=== PATIENT | female | born 1970 | race Caucasian/White ===

== ENCOUNTER → 2024-09-30 | Outpatient (CLI) | payer MEDICAID, SELFPAY ==
[2024-09-30 10:12] LABS: Hematocrit 38.4 % (37-47); Hemoglobin 13.2 g/dL (12.0-15.0); Mean Corp Hgb Conc 34.4 g/dL (32-36); Mean Corpuscular Volume 89.7 fL (81-99); Mean Platelet Vol. 9.4 fl (6.2-12.0); Platelet Count 433 K/mm3 (150-450); RBC Distribution Width CV 13.7 % (11.6-14.6); RBC Distribution Width SD 45.1 fl (35.1-43.9); Red Blood Count 4.28 M/mm3 (4.2-5.4); White Blood Count 9.7 K/mm3 (4.4-11.0)
[2024-09-30 11:01] LABS: AST(SGOT) 25 U/L (<=31); Alanine Aminotransfer ALT/SGPT 19 U/L (<=34); Albumin, Serum 4.2 g/dL (3.5-5.0); Alkaline Phosphatase 101 U/L (35-104); Anion Gap 13 (5-15); BUN 11 mg/dL (4-19); BUN/Creat Ratio 12.9 RATIO (10-20); Calcium,Total 8.9 mg/dL (7.6-11.0); Carbon Dioxide 24.6 mmol/L (21.0-32.0); Chloride 101 mmol/L (98-108); Cholesterol 232 mg/dL (<=200); Globulin 3.0 g/dL (2.2-4.2); Glucose 88 mg/dL (70-99); Low Density Lipoprotein Calc. 104 mg/dL; Potassium 4.0 mmol/L (3.3-5.1); Triglycerides 241 mg/dL; Very Low Density Lipoprotein 48 mg/dL (5-40); cholesterol:hdl ratio screen 2.89
== END | disposition home or self-care (01) ==
LOC: MTLAB 08:46
PROVIDERS: PCP Family Medicine; Referring Provider Psychiatry & Neurology Neurology; Visit Provider Psychiatry & Neurology Neurology
DX: Z86.73 Personal history of transient ischemic attack (TIA), and cerebral infarction without residual deficits (principal); E03.9 Hypothyroidism, unspecified
CPT/HCPCS: 36415; 80053; 80061; 84439; 84443; 85027

== ENCOUNTER → 2024-10-10 | Outpatient (CLI) | payer MEDICAID, SELFPAY ==
--- NOTE | 2024-10-10 10:07 | CDU_ITS ---
Reason For Study Reason For Study: Hx of stroke and syncope Rt. Velocities/BP Lt. Velocities/BP Prox CCA 55.1/16.3 cm/sec. Prox CCA 83.9/22.3 cm/sec. Mid CCA 71.1/23.0 cm/sec. Mid CCA 78.4/25.6 cm/sec. Dist CCA 65.5/23.0 cm/sec. Dist CCA 67.4/22.3 cm/sec. Prox ICA 44.7/17.3 cm/sec. Prox ICA 67.4/17.9 cm/sec. Mid ICA 61.7/27.7 cm/sec. Mid ICA 52.0/25.6 cm/sec. Dist ICA 58.9/23.0 cm/sec. Dist ICA 41.0/19.0 cm/sec. Rt. ICA/CCA = 0.9. Lt. ICA/CCA = 0.9. Prox ECA 78.7/19.2 cm/sec. Prox ECA 77.3/14.6 cm/sec. Rt. Vert. 41.9/18.2 cm/sec. Lt. Vert. 39.0/14.5 cm/sec. Right Extracranial There is intimal thickening but no significant atherosclerotic plaque noted in the right common carotid artery. There is homogeneous, smooth atherosclerotic plaque noted in the right internal carotid artery. There is intimal thickening but no significant atherosclerotic plaque noted in the right external carotid artery. Antegrade flow is noted in the right vertebral artery. Left Extracranial There is intimal thickening but no significant atherosclerotic plaque noted in the left common carotid artery. There is homogeneous, smooth atherosclerotic plaque noted in the left internal carotid artery. There is intimal thickening but no significant atherosclerotic plaque noted in the left external carotid artery. Antegrade flow is noted in the left vertebral artery. Procedure Carotid Duplex [id number]. This is a Carotid Duplex examination using B-mode, color flow and specral Doppler. Exam performed in department. VL/Carotid Duplex Ultrasound Interpretation Summary Mild (<50%) stenosis right extracranial internal carotid. Mild (<50%) stenosis left extracranial internal carotid. Patent and antegrade vertebrals bilaterally. Ordering Physician: Bartolo Harrington Referring Physician: Yokasta Mera MD Performed By: Alivia Lopez RVT
--- OUTSIDE RECORDS SUMMARY | 2024-10-10 21:18 | XMS RPT_ITS | CCD ---
Author Organization [facility] CliniSymt Care Team Providers Care Russian Teacher Name Role Phone Amirneni, Vamsee Hugo Unavailable [phone] Kelvin, Johnathon Unavailable DEE DEE WAGNER Unavailable Unavailable CENTA, NORMAN E Unavailable Unavailable CENTA, NORMAN E Unavailable Unavailable CENTA, NORMAN E Unavailable Unavailable CENTA, NORMAN E Unavailable Unavailable CENTA, NORMAN E Unavailable Unavailable Amirneni, Vamsee Primary Care Provider Amirneni, Vamsee Hugo Primary Care Provider Amirneni, Vamsee K. Admitting Unavailable Amirneni, Vamsee K. Attending Unavailable Amirneni, Vamsee K. Admitting Unavailable Amirneni, Vamsee K. Attending Unavailable Amirneni, Vamsee K. Admitting Unavailable Amirneni, Vamsee K. Attending Unavailable Amirneni, Vamsee K. Admitting Unavailable Amirneni, Vamsee K. Attending Unavailable Amirneni, Vamsee K. Admitting Unavailable Amirneni, Vamsee K. Attending Unavailable Amirneni, Vamsee K. Admitting Unavailable Amirneni, Vamsee K. Attending Unavailable Gem Friedman Primary Care Provider Alise Sprague Primary Care Provider Alise Sprague Primary Care Provider Alise Sprague Primary Care Provider Aury Mera Primary Care Provider Aury Mera MD Primary Care Provider Aury Mera MD Primary Care Provider Ede ROBLES, Aury Primary Care Provider [phone] Ede ROBLES, Aury Primary Care Provider Darcie ERVIN, Alise Haynes Primary Care Provider Unavai laberic EDE, AURY Primary Care Unavailable SYSTEM, PROVIDER NOT IN Referring Unavaila ble SYSTEM, PROVIDER NOT IN Attending Unavaila ble JENNIFER, AURY Primary Care Unavailable AURY RODRIGUEZ Consulting Unavailable MELANIE ROBLES~[phone], MELANIE Cullen Admitting Unavailable MELANIE ROBLES~[phone], MELANIE REAL E Attending Unavailable MELANIE ROBLES, ADDIE E Consulting Unava higinio NAVARRO MD, ADDIE Cullen Consulting Unava ilalisha Mera MD, Aury Primary Care Provider KARENA RENO Attending Unavailable EDE, AURY Primary Care Unavailable EDE, AURY Referring Unavailable EDE, AURY Primary Care Unavailable WILLIAM, SOPHIAELI WATTS Admitting Unavailable WILLIAM, SOPHIAELI WATTS Referring Unavailable MARTA NINA Attending Unavailabl e EDE, AURY Primary Care Unavailable EDE, AURY Referring Unavailable GHINDABOO Referring Unavailab le EDE, AURY Primary Care Unavailable GHINDABOO Attending Unavailab le GHINDABOO Referring Unavailab le EDE, AURY Primary Care Unavailable GHINDABOO Attending Unavailab le EDE, AURY Primary Care Unavailable EDE, AURY Primary Care Unavailable MAC PRESTON Attending Unavailable MAC PRESTON Referring Unavailable EDE, AURY Primary Care Unavailable EDE, AURY Attending Unavailable EDE, AURY Referring Unavailable EDE, AURY Primary Care Unavailable EDE, AURY Attending Unavailable EDE, AURY Referring Unavailable EDE, AURY Primary Care Unavailable WILLIAM, SOPHIA MAC Admitting Unavailable WILLIAM, SOPHIA WATTS Attending Unavailable WILLIAM, SOPHIA MAC Referring Unavailable DARSHANA PACE Attending Unavailable EDE, AURY Primary Care Unavailable EDE, AURY Primary Care Unavailable GHINDABOO Admitting Unavailab le GHINDABOO Attending Unavailab le EDE, AURY Primary Care Unavailable EDE, AURY Primary Care Unavailable EDE, AURY Attending Unavailable EDE, AURY Primary Care Unavailable BOO SWANN Attending Unavailab le EDE, AURY Primary Care Unavailable YARY GUDINO Attending Unavailable EDE, AURY Primary Care Unavailable EDE, AURY Attending Unavailable EDE, AURY Referring Unavailable EDE, AURY Admitting Unavailable MAC PRESTON Attending Unavailable EDE, AURY Primary Care Unavailable EDE, AURY Primary Care Unavailable EDE, AURY Attending Unavailable ROMY BILLY Attending Unavaila ble EDE, AURY Primary Care Unavailable EDE, AURY Primary Care Unavailable ROMY BILLY Admitting Unavaila ROMY Brown Referring Unavaila cristi Harrington MD, Dr. Mcfarland Attending Provider Ede ROBLES, Aury Primary Care Provider Dr. Bartolo Harrington MD Referring Provider [phone] Bartolo Harrington Attending Unavailable Bartolo Harrington Referring Unavailable Bartolo Harrington Attending Unavailable Ede, Aury Primary Care Unavailable Bartolo Harrington Attending Unavailable Bartolo Harrington Referring Unavailable Allergies Allergy Classification Reported Allergen(s) Allergy Type Date of Onset Reaction(s) Facility Acetaminophen / oxyCODONE (4 sources) Acetaminophen / oxyCODONE Drug Allergy 04-20-19 18 [facility] Aspirin (4 sources) Aspirin Drug Allergy 05-04-19 16 GI Intolerance [facility] Caffeine (4 sources) Caffeine Drug Allergy 05-04-19 16 Other (See Comments) [facility] Contrast Media (4 sources) Contrast media Substance Allergy 09-24-19 19 [facility] Dihydrofolate Reductase Inhibitors (antibiotic) (4 sources) Trimethoprim Drug Allergy GI Intolerance [facility] Opioid Agonists (4 sources) Morphine Drug Allergy [facility] Penicillins (antibiotic) (4 sources) Penicillins Drug Allergy 05-04-19 16 [facility] Sulfonamides (antibiotic) (4 sources) Sulfamethoxazole Drug [facility] (20 sources) Ct: Iodinated Contrast- Oral And Iv Dye Propensity to adverse reactions to drug 07-23-19 18 [facility] (20 sources) aspirin; Translations: [ASPIRIN] Propensity to adverse reactions to drug 05-04-19 16 GI Intolerance, Unknown [facility] Work Phone: (20 sources) caffeine; Translations: [CAFFEINE] Propensity to adverse reactions to drug 05-04-19 16 Other (See Comments), Unknown [facility] Work Phone: (20 sources) morphine; Translations: [MORPHINE] Propensity to adverse reactions to drug 04-20-19 18 [facility] (20 sources) Penicillins; Translations: [PENICILLINS] Propensity to adverse reactions to drug 05-04-19 16 Hiv, Unknown [facility] Work Phone: (20 sources) sulfamethoxazole; Translations: [SULFAMETHOXAZOLE] Propensity to adverse reactions to drug 01-24-20 20 GI Intolerance [facility] (20 sources) trimethoprim; Translations: [TRIMETHOPRIM] Propensity to adverse reactions to drug GI Intolerance [facility] (20 sources) CT: IODINATED CONTRAST- ORAL AND IV DYE; Translations: [CT: IODINATED CONTRAST- ORAL AND IV DYE] Propensity to adverse reactions to drug 07-23-19 18 [facility] (20 sources) Acetaminophen / oxyCODONE; Translations: [OXYCODONE-ACETAMIN OPHEN] Drug Allergy 04-20-19 18 Itching [facility] (12 sources) Aluminum aspirin Drug Allergy 08-13-19 17 [facility] (12 sources) Diatrizoate Drug Allergy 08-13-19 17 [facility] (11 sources) Penicillins Propensity to adverse reactions to drug 08-13-19 17 [facility] (20 sources) Contrast media; Translations: [RED DYE] Propensity to adverse reactions to drug 09-24-19 19 [facility] (20 sources) Bee Venom Protein (Honey Bee); Translations: [BEE VENOM PROTEIN (HONEY BEE)] Propensity to adverse reactions to drug 10-13-19 19 [facility] (4 sources) Wound Dressing Adhesive Propensity to adverse reactions to drug 03-20-19 21 Rash, Blisters [facility] (11 sources) Penicillins Propensity to adverse reactions to drug 05-04-19 16 [facility] (20 sources) Penicillins Propensity to adverse reactions to drug 05-04-19 16 [facility] (20 sources) venlafaxine; Translations: [VENLAFAXINE] Drug Allergy 01-14-20 23 Other (See Comments), Agitation [facility] Work Phone: (1 source) Penicillins Propensity to adverse reactions to drug 08-13-19 17 [facility] (1 source) Sulfamethoxazole Propensity to adverse reactions to drug 01-24-20 [facility] (2 sources) Penicillin G Drug Allergy 09-30-19 25 [facility] (1 source) Penicillin Drug Allergy 09-30-19 [facility] (1 source) Iodinated Contrast Media Drug allergy (disorder) 09-30-19 [facility] Medications Current Medications Medication Drug Class(es) Dates Sig (Normalized) Sig (Original) acetaminophen 21.7 mg/ml / HYDROcodone bitartrate 0.5 mg/ml oral solution (11 sources) Opioid Agonist Start: 11-13-2020 End: 11-20-2020 HYDROcodone-acetamin ophen (HYCET) 7.5-325 mg/15 mL oral solution Indications: Postoperative pain Take 15 mL by mouth every 6 (six) hours as needed for pain (Days supply per fill: 7) . 420 mL 0 11/13/2020 11/20/2020 Discontinued (Patient's Request) Start: 02-07-2020 End: 02-10-2020 take 1 tablet by mouth every four hours as needed for pain HYDROcodone-Acetaminophen (Vicodin) 5-30 0 MG tablet Indications: S/P bilateral breast reduction Take 5 mg of opiate by mouth every 4 hours as needed for Moderate Pain for up to 3 days. 10 tablet 02/07/2020 Active Start: 06-06-2018 End: 06-06-2018 hydroCODone-acetaminophen (N ORCO) 5-325 MG per tablet 1 tablet Start: 06-06-2018 hydroCODone-ac etaminophen (NORCO) 5-325 MG per tablet 1 Each [id number] actuat albuterol 0.09 mg/actuat metered dose inhaler (5 sources) beta2-Adrenergic Agonist Start: 04-01-2024 End: 04-01-2025 take 2 puff(s) by inhalation every six hours as needed albuterol 90 mcg/actuation inhaler Indications: Upper respiratory tract infection, unspecified type Inhale 2 (two) puffs every 6 (six) hours as needed . 18 g 1 04/01/2024 04/01/2025 Active End: 07-22-2017 VENTOLIN HFA 90 mcg/actuatio n inhaler Inhale 2 puffs every 4 (four) hours as needed. 07/22/2017 Discontinued amLODIPine 10 mg oral tablet (20 sources) Dihydropyridine Calcium Channel Ronda Start: 06-29-2019 End: 02-15-2025 take 1 tablet by mouth once daily Amlodipine 10 mg tablet Active 10 mg PO daily September 29, 2024 12:00am Start: 11-16-2018 End: 11-16-2019 take 2 tablets by mouth once daily amLODIPine (NORVASC) 5 MG tablet Indications: Essential hypertension Take 2 (two) tablets (10 mg total) by mouth daily . 180 tablet 3 11/16/2018 11/16/2019 Active Start: 03-18-2018 End: 03-18-2019 take 1 tablet by mouth once daily amLODIPine (NORVASC) 10 MG tablet Take 1 (one) tablet (10 mg total) by mouth daily . 30 tablet 5 03/18/2018 03/18/2019 Active Start: 02-08-2018 End: 03-18-2018 take 1 tablet by mouth once daily amLODIPine (NORVASC) 5 MG tablet Take 1 (one) tablet (5 mg total) by mouth daily . 30 tablet 1 02/08/2018 03/18/2018 Discontinued amoxicillin 875 mg / clavulanate 125 mg oral tablet (3 sources) Penicillin-class Antibacterial Start: 04-08-2022 End: 04-18-2022 take 1 tablet by mouth twice daily amoxicillin-clavulanate (AUGMENTIN) 875-125 mg per tablet Indications: Acute maxillary sinusitis, recurrence not specified Take 1 (one) tablet by mouth 2 (two) times a day for 10 days . 20 tablet 0 04/08/2022 04/18/2022 Active Start: 10-02-2020 End: 10-12-2020 take 1 tablet by mouth twice daily amoxicillin-clavulanate (AUGMENTIN) 875-125 mg per tablet Indications: Recurrent acute serous otitis media of both ears Take 1 (one) tablet by mouth 2 (two) times a day for 10 days . 20 tablet 0 10/02/2020 10/12/2020 Active benzonatate 100 mg oral capsule (2 sources) Non-narcotic Antitussive Start: 01-23-2021 End: 01-30-2021 take 1 capsule by mouth three times daily as needed for cough benzonatate (TESSALON) 100 MG capsule Indications: COVID-19 , Cough Take 1 (one) capsule (100 mg total) by mouth 3 (three) times a day as needed for cough . 20 capsule 0 01/23/2021 01/30/2021 Active Biotin (20 sources) take 5000 ug by mouth once daily in the evening BIOTIN ORAL Take 5,000 mcg by mouth once daily PM . Active take 5000 ug by mout h once daily in the evening BIOTIN ORAL Take 5,000 mcg by mouth once daily PM . 0 Active take 5000 ug by mouth once daily BIOTIN ORAL Take 5,000 mcg by mouth once daily . 0 Active BIOTIN BEAUTY EXTRA STRENGTH PO (1 source) take 5000 ug by mouth once daily BIOTIN BEAUTY EXTRA STRENGTH PO Take 5,000 mcg by mouth daily. Active ciprofloxacin 3 mg/ml / dexamethasone 1 mg/ml otic suspension (1 source) Corticosteroid, Quinolone Antimicrobial Start: 04-21-19 End: 04-28-19 ciprofloxacin-dexamet hasone (CIPRODEX) otic suspension Indications: Otitis externa, unspecified chronicity, unspecified laterality, unspecified type , Right otitis media, unspecified otitis media type Administer 4 (four) drops to the right ear 2 (two) times a day for 7 days . 7.5 mL 0 04/21/2019 04/28/2019 Active Collagen (13 sources) COLLAGEN MISC 25 mL by Miscellaneous route daily . Active COLLAGEN MISC 25 mL by Miscellaneous route daily . 0 Active dicyclomine hydrochloride 10 mg oral capsule (20 sources) Anticholinergic Start: 06-26-2021 End: 11-23-2023 dicyclomine (BENTYL) 10 MG capsule Take 1 cap Twice a day as needed . 30 capsule 06/26/2021 11/23/2023 Discontinued dihydroergotamine mesylate 0.5 mg/actuat nasal spray (4 sources) Ergotamine Derivative dihydroergotamine (MIGRANAL) 0.5 mg/pump act. (4 mg/mL) nasal spray 1 spray into each nostril as needed for migraine Use in one nostril as directed. No more than 4 sprays in one hour . Active doxycycline hyclate 100 mg oral tablet (5 sources) Tetracycline-class Drug Start: 04-01-2024 take 1 tablet by mouth twice daily doxycycline hyclate (VIBRA-TABS) 100 MG tablet Indications: Upper respiratory tract infection, unspecified type , Non-recurrent acute suppurative otitis media of left ear without spontaneous rupture of tympanic membrane Take 1 (one) tablet (100 mg total) by mouth 2 (two) times a day . 20 tablet 04/01/2024 Active Start: 04-21-2019 End: 05-01-2019 take 1 tablet by mouth twice daily doxycycline hyclate (VIBRA-TABS) 100 MG tablet Indications: Otitis externa, unspecified chronicity, unspecified laterality, unspecified type , Right otitis media, unspecified otitis media type Take 1 (one) tablet (100 mg total) by mouth 2 (two) times a day for 10 days . 20 tablet 0 04/21/2019 05/01/2019 Active DULoxetine 60 mg delayed release oral capsule (11 sources) Serotonin and Norepinephrine Reuptake Inhibitor Start: 07-10-2021 End: 10-14-2021 take 1 capsule by mouth once daily DULoxetine (CYMBALTA) 60 MG capsule Take 60 mg by mouth daily . 0 07/10/2021 10/14/2021 Discontinued (Alternate therapy) Start: 07-13-2020 End: 01-23-2021 take 1 capsule by mouth once daily DULoxetine (CYMBALTA) 60 MG capsule Take 60 mg by mouth daily . 0 07/13/2020 01/23/2021 Discontinued (Patient's Request) ergocalciferol 1.25 mg oral capsule (20 sources) Provitamin D2 Compound Start: 06-18-2020 End: 10-14-2021 take 1 capsule by mouth every week ergocalciferol (ERGOCALCIFEROL) 1,250 mcg (50,000 unit) capsule Indications: Vitamin D deficiency Take 1 (one) capsule (50,000 Units total) by mouth once a week . 4 capsule 12 06/18/2020 10/14/2021 Discontinued (Therapy completed) End: 07-22-2017 take 1 capsule by mouth every week, then take 1 capsule by mouth ergocalciferol (VITAMIN D2) 50,000 unit capsule Take 50,000 Units by mouth once a week. 07/22/2017 Discontinued estradiol 2 mg oral tablet (20 sources) Estrogen Start: 09-26-2019 End: 02-15-2025 take 1 tablet by mouth once daily Estradiol 2 mg tablet Active 2 mg PO daily September 29, 2024 12:00am Start: 11-30-2018 End: 09-23-2019 take 1 tablet by mouth once daily estradiol (ESTRACE) 2 MG tablet Indications: Postartificial menopausal syndrome Take 1 (one) tablet (2 mg total) by mouth daily . 90 tablet 1 12/20/2018 09/23/2019 Discontinued (Reorder) take 1 tablet by mary th once daily estradiol (ESTRACE) 1 MG tablet Take 1 mg by mouth daily . 0 Active ferrous sulfate 325 mg oral tablet (15 sources) Start: 11-18-2022 End: 11-23-2023 take 1 tablet by mouth once daily at breakfast ferrous sulfate 325 (65 FE) MG tablet Indications: Iron deficiency Take 1 (one) tablet (325 mg total) by mouth daily with breakfast . 90 tablet 3 11/18/2022 11/23/2023 Discontinued fluconazole 150 mg oral tablet (3 sources) Azole Antifungal Start: 04-08-2022 End: 04-10-2022 take 1 tablet by mouth once daily fluconazole (DIFLUCAN) 150 MG tablet Indications: Antibiotic-induced yeast infection Take 1 (one) tablet (150 mg total) by mouth daily Take after completion of Augmentin for 2 doses . 2 tablet 0 04/08/2022 04/10/2022 Active Start: 04-21-2019 End: 04-26-2019 take 1 tablet by mouth every other day fluconazole (DIFLUCAN) 150 MG tablet Indications: Antibiotic-induced yeast infection Take 1 (one) tablet (150 mg total) by mouth every other day for 3 doses . 3 tablet 0 04/21/2019 04/26/2019 Active fluticasone propionate 0.05 mg/actuat metered dose nasal spray (20 sources) Corticosteroid Start: 11-29-2020 fluticasone pr opionate (FLONASE) 50 mcg/actuation nasal spray 1 (one) spray by Each Nare route 2 (two) times a day as needed . 11/29/2020 Active Start: 10-02-2020 End: 10-02-2021 take 1 spray(s) nasal route twice daily fluticasone propionate (FLONASE) 50 mcg/actuation nasal spray Indications: Recurrent acute serous otitis media of both ears Instill 1 (one) spray into each nostril 2 (two) times a day . 16 g 5 10/02/2020 11/13/2020 Discontinued (Stop Taking at Discharge) Start: 12-27-2019 fluticasone 50 MCG/ACT Suspension nasal spray as needed. 0 12/27/2019 Active Start: 09-30-2019 End: 09-29-2020 take 1 spray(s) nasal route twice daily fluticasone propionate (FLONASE) 50 mcg/actuation nasal spray Indications: ETD (Eustachian tube dysfunction), bilateral Instill 1 (one) spray into each nostril 2 (two) times a day . 16 g 5 09/30/2019 08/07/2020 Discontinued 1.5 ml fremanezumab-vfrm 150 mg/ml auto-injector (1 source) Start: 09-29-2024 Fremanezumab-V frm (Ajovy Autoinjector) 225 mg/1.5 mL auto-injector Active 225 mg SC EVERY MONTH 1.5 5 September 29, 2024 12:00am glucosam/chond/hyalu/CF bora te (MOVE FREE JOINT HEALTH ORAL) (20 sources) glucosam/chond/h yalu/CF borate (MOVE FREE JOINT HEALTH ORAL) Take by mouth PM . Active glucosam/chond/h yalu/CF borate (MOVE FREE JOINT HEALTH ORAL) Take by mouth PM . 0 Active glucosam/chond/h yalu/CF borate (MOVE FREE JOINT HEALTH ORAL) Take by mouth . 0 Active hydrOXYzine hydrochloride 25 mg oral tablet (12 sources) Antihistamine Start: 10-20-2017 take 1 tablet by mouth every six hours as needed hydrOXYzine HCl 25 MG Tab tablet Take 1 tablet by mouth every 6 hours as needed for Itching. 30 tablet 10/20/2017 Active hyoscyamine sulfate 0.125 mg sublingual tablet (12 sources) Start: 08-12-2016 take 1 tablet by mouth every four hours as needed hyoscyamine 0.125 MG Tab SL take 1 tablet by mouth every 4 hours as needed for Cramping (GI spasm).. 15 tablet 08/12/2016 Active lisinopril 40 mg oral tablet (20 sources) Angiotensin Converting Enzyme Inhibitor Start: 06-27-2019 End: 02-15-2025 take 1 tablet by mouth once daily Lisinopril 40 mg tablet Active 40 mg PO daily September 29, 2024 12:00am Start: 07-22-2017 End: 06-18-2019 take 1 tablet by mouth once daily lisinopril (PRINIVIL,ZESTRIL) 40 MG tablet Indications: Essential hypertension Take 1 (one) tablet (40 mg total) by mouth daily . 90 tablet 1 12/20/2018 06/18/2019 Active take 1 tablet by mary th once daily lisinopril 20 MG Tab Take 1 tablet by mouth daily. Active End: 10-12-2018 take 1 tablet by mouth once daily lisinopril (PRINIVIL,ZESTRIL) 30 MG tablet Take 30 mg by mouth daily . 0 10/12/2018 Discontinued (Duplicate order) loperamide hydrochloride 2 mg oral tablet (2 sources) Opioid Agonist Start: 06-26-2021 loperamide (IM ODIUM A-D) 2 mg tablet 1 POBID PRN #30 . 30 tablet 0 06/26/2021 Active methylPREDNISolone (2 sources) Corticosteroid Start: 04-01-2024 End: 04-07-2024 methylPREDNISolone (MEDROL DOSEPACK) 4 mg tablet Indications: Upper respiratory tract infection, unspecified type Follow package directions . 21 tablet 04/01/2024 04/07/2024 Active Start: 12-21-2023 End: 12-27-2023 methylPREDNIsolone 4 MG Tab Therapy Pack tablet Take 1 tablet by mouth As directed. 12/21/2023 12/27/2023 Active 24 hr mirabegron 50 mg extended release oral tablet (1 source) beta3-Adrenergic Agonist Start: 01-13-2023 End: 02-10-2023 take 1 tablet by mouth once daily mirabegron (MYRBETRIQ) 50 mg Tb24 Take 1 (one) tablet (50 mg total) by mouth daily . 28 tablet 0 01/13/2023 02/10/2023 Active 24 hr NIFEdipine 60 mg extended release oral tablet (4 sources) Dihydropyridine Calcium Channel Ronda take 1 tablet by mouth once daily NIFEdipine (ADALAT CC) 60 MG 24 hr tablet Take 60 mg by mouth daily. Active ofloxacin 3 mg/ml otic solution (1 source) Quinolone Antimicrobial Start: 09-30-2019 End: 10-10-2019 ofloxacin (FLOXIN) 0.3 % otic solution Indications: History of recurrent ear infection Administer 5 (five) drops into both ears 2 (two) times a day for 10 days . 5 mL 1 09/30/2019 10/10/2019 Active ondansetron 4 mg disintegrating oral tablet (20 sources) Serotonin-3 Receptor Antagonist Start: 02-25-2024 End: 05-23-2024 take 1 tablet by mouth every eight hours as needed for nausea ondansetron (ZOFRAN-ODT) 4 MG disintegrating tablet Dissolve 1 (one) tablet (4 mg total) on top of tongue every 8 (eight) hours as needed for nausea . 20 tablet 02/25/2024 05/23/2024 Discontinued Start: 11-13-2020 End: 11-13-2020 ondansetron (ZOFRAN) injecti on Start: 04-20-2017 take 1 tablet by mary th every four hours as needed ondansetron 4 MG Tab Dispersible tablet Take 1 tablet by mouth every [address] on tongue 15 tablet 03/15/2020 Active polyethylene glycol 3350 514176 mg / potassium chloride 1480 mg / sodium bicarbonate 5720 mg / sodium chloride 19482 mg powder for oral solution (1 source) Osmotic Laxative Start: 07-01-2021 End: 07-01-2021 take 420 g by mouth once polyethylene glycol (NuLYTELY) 420 gram SolR Take 4,000 mL by mouth once for 1 dose . 4000 mL 0 07/01/2021 07/01/2021 Active polyethylene glycol 3350 610645 mg / potassium chloride 2970 mg / sodium bicarbonate 6740 mg / sodium chloride 5860 mg / sodium sulfate 99402 mg powder for oral solution (1 source) Osmotic Laxative Start: 01-12-2020 End: 01-12-2020 polyethylene glycol (GoLYTELY) 236-22.74-6.74 -5.86 gram solution Take 4,000 mL by mouth once for 1 dose . 4000 mL 0 01/12/2020 01/12/2020 Active predniSONE 10 mg oral tablet (18 sources) Start: 04-08-2022 End: 04-18-2022 take 1 tablet by mouth once daily at mealtime predniSONE (DELTASONE) 10 MG tablet Indications: Cough with congestion of paranasal sinus Take 1 (one) tablet (10 mg total) by mouth daily In the am with food for 10 days . 10 tablet 0 04/08/2022 04/18/2022 Active Start: 10-14-2019 End: 06-18-2020 predniSONE (DELTASONE) 10 MG tablet Indications: Rash 4 tablets daily x 3 days, 3 tablets daily x 3 days, 2 tablets daily x 3 days, 1 tablet daily x 3 days . 30 tablet 0 10/14/2019 06/18/2020 Discontinued Start: 10-20-2017 End: 02-20-2020 predniSONE 20 MG Tab tablet 3 tabs daily x 3days; 2 tabs daily x 3days; 1 tab daily x 3days then 1/2 tablet daily x 3days 20 tablet 0 10/20/2017 02/20/2020 Discontinued (Stop Taking at Discharge) promethazine hydrochloride 25 mg oral tablet (4 sources) Phenothiazine take 1 tablet by mouth every six hours promethazine (PHENERGAN) 25 MG tablet Take 25 mg by mouth every 6 (six) hours as needed for nausea. Active solifenacin succinate 10 mg oral tablet (20 sources) Cholinergic Muscarinic Antagonist Start: End: take 1 tablet by mouth once daily in the evening solifenacin (VESICARE) 10 MG tablet Indications: Urge incontinence of urine , Overactive bladder Take 1 (one) tablet (10 mg total) by mouth daily PM . 30 tablet 11 11/09/2023 11/08/2024 Active sulfamethoxazole 800 mg / trimethoprim 160 mg oral tablet (12 sources) Dihydrofolate Reductase Inhibitor Antibacterial, Sulfonamide Antimicrobial Start: sulfamethoxazole-tri methoprim 800-160 MG Tab take 1 tablet by mouth 2 times daily.. 20 tablet 09/28/2016 Active SUMAtriptan 100 mg oral tablet (7 sources) Serotonin-1b and Serotonin-1d Receptor Agonist Start: 021 End: take 1 tablet by mouth every two hours, then take 2 tablets by mouth once daily SUMAtriptan (IMITREX) 100 MG tablet take 1 tablet by mouth every 2 hours if needed UP TO 2 TABLETS DAILY 0 01/03/2021 10/14/2021 Discontinued (Alternate therapy) levothyroxine sodium 0.025 mg oral tablet (20 sources) l-Thyroxine Start: 025 take 1 tablet by mouth once daily Levothyroxine (Synthroid) 25 mcg tablet Active 25 ug PO daily September 29, 2024 12:00am Start: 12-19-2019 End: 02-15-2025 take 1 tablet by mouth once daily levothyroxine (SYNTHROID, LEVOTHROID) 88 MCG tablet Indications: Hypothyroidism, unspecified type Take 1 (one) tablet (88 mcg total) by mouth once daily . 90 tablet 4 11/23/2023 02/15/2025 Active Start: 03-19-2018 End: 12-24-2019 take 1 tablet by mouth once daily levothyroxine (SYNTHROID, LEVOTHROID) 100 MCG tablet Indications: Hypothyroidism, unspecified type take 1 tablet by mouth once daily 30 tablet 0 11/14/2019 12/19/2019 Discontinued Start: 08-14-2017 End: 02-08-2019 take 1 tablet by mouth once daily levothyroxine (SYNTHROID, LEVOTHROID) 112 MCG tablet Take 1 (one) tablet (112 mcg total) by mouth once daily . 30 tablet 1 02/08/2018 02/08/2019 Active Start: 07-22-2017 End: 07-22-2017 take 1 tablet by mouth once daily levothyroxine (SYNTHROID, LEVOTHROID) 88 MCG tablet Indications: TAKE 1 TABLET BY ORAL ROUTE EVERY DAY EXCEPT ON THURSDAY Take 1 (one) tablet (88 mcg total) by mouth once daily. 30 tablet 1 07/22/2017 Active take 1 tablet by mary once daily levothyroxine (SYNTHROID, LEVOTHROID) 100 MCG tablet Take 100 mcg by mouth daily. Active traMADol hydrochloride 50 mg oral tablet (6 sources) Opioid Agonist Start: 11-20-2020 End: 11-25-2020 traMADoL (ULTRAM) 50 mg tablet Indications: Postoperative pain Take 1 (one) tablet (50 mg total) by mouth every 6 (six) hours as needed for pain (Days supply per fill: 5) . 18 tablet 0 11/20/2020 11/25/2020 Active End: 07-22-2017 take 2 tablets by mouth twice daily as needed for pain traMADol (ULTRAM) 50 mg tablet Take 100 mg by mouth 2 (two) times a day as needed for pain . 07/22/2017 Discontinued take 1 tablet by mray th every eight hours traMADol (ULTRAM) 50 mg tablet Take 50 mg by mouth every 8 (eight) hours as needed for pain. Active ubrogepant 100 mg oral tablet (13 sources) Start: 09-29-2024 take 1 tablet by mouth once daily as needed for headache Ubrogepant (Ubrelvy) 100 mg tablet Active 100 mg PO DAILY as needed for headache 16 September 29, 2024 12:00am Start: 10-14-2021 End: 04-15-2023 take 1 tablet by mouth once daily as needed, then take 1 tablet by mouth every two hours as needed, then take 1 tablet by mouth every twenty-four hours as needed ubrogepant (UBRELVY) 100 mg Tab Indications: Migraine with aura and without status migrainosus, not intractable Take 1 (one) tablet (100 mg total) by mouth daily as needed (at migraine onset) Can take 2nd dose after 2 hours if migraine persists. Max dose 200mg per 24 hours. . 16 tablet 11 10/14/2021 04/15/2023 Discontinued zolpidem tartrate 5 mg oral tablet (4 sources) gamma-Aminobutyric Acid-ergic Agonist Start: 05-25-2023 End: 11-21-2023 take 1 tablet by mouth once daily as needed for sleep zolpidem (AMBIEN) 5 MG tablet Indications: Psychophysiological insomnia Take 1 (one) tablet (5 mg total) by mouth nightly as needed for sleep (Days supply per fill: 30) . 30 tablet 05/25/2023 11/21/2023 Active Completed/Discontinued Medications Medication Drug Class(es) Dates Sig (Normalized) Sig (Original) 100 ml acetaminophen 10 mg/ml injection (1 source) Start: 11-13-2020 End: 11-13-2020 acetaminophen (OFIRMEV) injection acetaminophen 300 mg / codeine phosphate 30 mg oral tablet (1 source) Opioid Agonist Start: 02-20-2020 End: 02-20-2020 take 1-2 tablets by mouth every four hours as needed acetaminophen-code ine (TYLENOL #3) 300-30 MG per tablet 1-2 tablet amitriptyline hydrochloride 25 mg oral tablet (20 sources) Tricyclic Antidepressant Start: 09-29-2024 End: 09-29-2024 take 3-4 tablets by mouth at bedtime as needed Amitriptyline 25 mg tablet Discontinued 25 mg PO .COMPLEX 120 5 September 29, 2024 9:44am September 29, 2024 10:20am Take 3 to 4 tablets orally at bedtime as needed. Start: 03-17-2022 End: 04-11-2024 take 4 tablets by mouth once daily for headache amitriptyline (ELAVIL) 25 MG tablet Indications: Migraine with aura and without status migrainosus, not intractable TAKE UP TO FOUR TABLETS BY MOUTH NIGHTLY FOR HEADACHES . 120 tablet 04/11/2024 Active take 1 tablet by mary th at bedtime amitriptyline 25 MG Tab Take 1 tablet by mouth At bedtime. Active End: 10-14-2021 take 2 tablets by mouth once daily amitriptyline (ELAVIL) 25 MG tablet Take 50 mg by mouth nightly . 0 10/14/2021 Discontinued (Alternate therapy) Azithromycin (4 sources) Macrolide Antimicrobial Start: 01-23-2021 End: 01-28-2021 azithromycin (Z-HUGO) 5 day dose pack Indications: Cough , Sinusitis, unspecified chronicity, unspecified location Take 2 tablets by mouth day one then one tablet days 2 - 4. . 6 tablet 0 01/23/2021 01/28/2021 Discontinued (Therapy completed) Start: 01-23-2021 azithromycin ( Z-HUGO) 5 day dose pack Indications: Cough , Sinusitis, unspecified chronicity, unspecified location Take 2 tablets by mouth day one then one tablet days 2 - 4. . 6 tablet 0 01/23/2021 Active Start: 11-13-2020 End: 01-23-2021 take 60 mL by mouth once daily azithromycin (ZITHROMAX ) 200 mg/5 mL suspension 400 mg p.o. tonight, then 200 mg p.o. daily for 4 more days of the weight equivalent of the reconstituted suspension. . 60 mL 0 11/13/2020 01/23/2021 Discontinued (Therapy completed) bisacodyl 5 mg delayed release oral tablet (10 sources) Stimulant Laxative Start: 01-12-2020 End: 06-18-2020 bisacodyL (DULCOLAX) 5 mg EC tablet As instructed . 4 tablet 0 01/12/2020 06/18/2020 Discontinued 30 ml bupivacaine hydrochloride 2.5 mg/ml injection (1 source) Amide Local Anesthetic Start: 02-20-2020 End: 02-20-2020 bupivacaine (PF) (MARCAINE) 0.25 % injection calcium chloride 0.001 meq/ml / glucose 50 mg/ml / potassium chloride 0.004 meq/ml / sodium chloride 0.103 meq/ml / sodium lactate 0.028 meq/ml injectable solution (1 source) Start: 02-20-2020 End: 02-20-2020 dextrose 5% and lactated ringers IV solution calcium chloride 0.0014 meq/ml / potassium chloride 0.004 meq/ml / sodium chloride 0.103 meq/ml / sodium lactate 0.028 meq/ml injectable solution (2 sources) Start: 11-13-2020 End: 11-13-2020 lactated Ringers infusion Start: 02-20-2020 End: 02-20-2020 lactated ringers IV solution ceFAZolin 1000 mg injection (1 source) Cephalosporin Antibacterial Start: 02-20-2020 End: 02-20-2020 take 1 g intravenous route every eight hours ceFAZolin (ANCEF) 1 g in dextrose premix IVPB celecoxib 100 mg oral capsule (3 sources) Nonsteroidal Anti-inflammatory Drug Start: 12-14-2017 End: 12-14-2018 take 1 capsule by mouth twice daily celecoxib (CELEBREX) 100 MG capsule Take 1 (one) capsule (100 mg total) by mouth 2 (two) times a day. 60 capsule 3 12/14/2017 03/18/2018 Discontinued End: 07-22-2017 take 1 capsule by mouth twice daily celecoxib (CELEBREX) 200 MG capsule Take 200 mg by mouth 2 (two) times a day. 07/22/2017 Discontinued cephalexin 500 mg oral capsule (9 sources) Cephalosporin Antibacterial Start: 03-20-2020 End: 03-27-2020 take 1 capsule by mouth twice daily cephALEXin 500 MG capsule Take 1 capsule by mouth 2 times daily for 7 days. 14 capsule 0 03/20/2020 03/27/2020 Start: 03-15-2020 End: 03-22-2020 take 1 capsule by mouth every twelve hours cephALEXin 500 MG capsule Take 1 capsule by mouth every 12 hours for 7 days. 14 capsule 0 03/15/2020 03/22/2020 Active Start: 02-07-2020 End: 02-14-2020 take 1 capsule by mouth twice daily cephALEXin 500 MG capsule Take 1 capsule by mouth 2 times daily for 7 days. 14 capsule 0 02/07/2020 02/14/2020 Active Start: 09-28-2016 End: 02-07-2020 take 1 capsule by mouth every six hours cephALEXin 500 MG Cap take 1 capsule by mouth every 6 hours.. 40 capsule 0 09/28/2016 02/07/2020 Discontinued (Therapy completed) cholecalciferol 0.125 mg oral tablet (20 sources) Vitamin D Start: 03-04-2018 End: 08-07-2020 take 1 tablet by mouth once daily cholecalciferol, vitamin D3, (VITAMIN D3) 5,000 unit Tab tablet Take 1 (one) tablet (5,000 Units total) by mouth daily . 30 tablet 11 03/19/2018 08/07/2020 Discontinued Start: 04-11-2017 take 1 capsule by mo [facility] once daily RA VITAMIN D-3 5000 units Cap capsule Take 1 capsule by mouth daily. 1 04/11/2017 [facility] cholecalciferol, vitamin D3, (VITAMIN D3) 5,000 unit Tab tablet Take 5,000 Units by mouth daily. Active End: 07-22-2017 apply 5000 [IU] topically once daily cholecalciferol, vitamin D3, 5,000 unit ODT Dissolve 5,000 Units on top of tongue daily . 07/22/2017 Discontinued take 1000 [IU] by mo [facility] once daily cholecalciferol, vitamin D3, 400 unit Tab Take 1,000 Units by mouth daily. Active ciprofloxacin 3 mg/ml ophthalmic solution (2 sources) Quinolone Antimicrobial Start: 10-13-2018 End: 12-20-2018 take 1 drop(s) into the eye(s) every two hours, then take 1 drop(s) into the eye(s) every four hours ciprofloxacin HCl (CILOXAN) 0.3 % ophthalmic solution Indications: Acute bacterial conjunctivitis of both eyes 1 drop q 2 hours, while awake, for 2 days. Then 1 drop, every 4 hours, while awake, for the next 5 days. . 10 mL 0 10/13/2018 12/20/2018 Discontinued (Therapy completed) 50 ml clindamycin 6 mg/ml injection (2 sources) Lincosamide Antibacterial Start: 11-13-2020 End: 11-13-2020 clindamycin (CLEOCIN) IVPB 300 mg (premix) Start: 03-15-2020 End: 03-15-2020 clindamycin (CLEOCIN) 900 mg in normal saline 50 ml premix IVPB 1 ml dexamethasone phosphate 4 mg/ml injection (1 source) Corticosteroid Start: 11-13-2020 End: 11-13-2020 dexamethasone (DECADRON) injection diclofenac sodium 0.01 mg/mg topical gel (9 sources) Nonsteroidal Anti-inflammatory Drug Start: 01-10-2021 End: 04-08-2022 diclofenac sodium 1 % Gel apply 4 grams topically four times a day if needed 0 01/10/2021 04/08/2022 Discontinued (Patient's Request) docusate sodium 50 mg / sennosides, skilled nursing 8.6 mg oral tablet (1 source) End: 07-22-2017 take 1 tablet by mouth twice daily senna-docusate (SENNA-S) 8.6-50 mg Take 1 tablet by mouth 2 (two) times a day. 07/22/2017 Discontinued doxycycline hyclate (VIBRAMYCIN) 100 mg in sodium chloride 0.9% (MB PLUS) 100 mL (total volume) IVPB (1 source) Start: 03-15-2020 End: 03-15-2020 doxycycline hyclate (VIBRAMYCIN) 100 mg in sodium chloride 0.9% (MB PLUS) 100 mL (total volume) IVPB EPINEPHrine 1 mg/ml injectable solution (1 source) alpha-Adrenergic Agonist, beta-Adrenergic Agonist, Catecholamine Start: 02-20-2020 End: 02-20-2020 EPINEPHrine (ADRENALIN) 30 MG/30ML injection famotidine 40 mg oral tablet (1 source) Histamine-2 Receptor Antagonist End: 07-22-2017 take 1 tablet by mouth once daily famotidine (PEPCID) 40 MG tablet Take 40 mg by mouth daily. 07/22/2017 Discontinued 1 ml fentaNYL 0.05 mg/ml injection (1 source) Opioid Agonist Start: 11-13-2020 End: 11-13-2020 fentaNYL (SUBLIMAZE) injection fexofenadine hydrochloride 180 mg oral tablet (15 sources) Histamine-1 Receptor Antagonist Start: 09-30-2019 End: 09-29-2020 take 1 tablet by mouth once daily fexofenadine (DOMINGA) 180 MG tablet Indications: Chronic pain of both ears Take 1 (one) tablet (180 mg total) by mouth daily . 30 tablet 3 09/30/2019 08/07/2020 Discontinued flurbiprofen 100 mg oral tablet (7 sources) Nonsteroidal Anti-inflammatory Drug Start: 11-16-2020 End: 04-08-2022 take 1 tablet by mouth three times daily for pain flurbiprofen (ANSAID) 100 MG tablet take 1 tablet by mouth three times a day if needed for pain 0 11/16/2020 01/23/2021 Discontinued (Patient's Request) gentamicin (GARAMYCIN) 80 mg in sodium chloride 0.9 % 500 mL irrigation solution (1 source) Start: 02-20-2020 End: 02-20-2020 gentamicin (GARAMYCIN) 80 mg in sodium chloride 0.9 % 500 mL irrigation solution Lidocaine (2 sources) Antiarrhythmic, Amide Local Anesthetic Start: 11-13-2020 End: 11-13-2020 lidocaine 20 mg/mL (2 %) injection Start: 03-15-2020 End: 03-15-2020 lidocaine (XYLOCAINE) 10 mg/ mL injection 100 mg meclizine hydrochloride 25 mg oral tablet (10 sources) Antiemetic Start: 12-17-2019 End: 06-18-2020 take 1 tablet by mouth three times daily for dizziness meclizine (ANTIVERT) 25 mg tablet take 1 tablet by mouth three times a day if needed for dizziness 0 12/17/2019 06/18/2020 Discontinued 1 ml meperidine hydrochloride 25 mg/ml cartridge (1 source) Opioid Agonist Start: 02-20-2020 End: 02-20-2020 inject 12.5-25 mg by intramuscular injection every four hours as needed meperidine (DEMEROL) injection 12.5-25 mg 10 ml methylene blue 5 mg/ml injection (1 source) Oxidation-Reductio n Agent Start: 02-20-2020 End: 02-20-2020 methylene blue (PROVAYBLUE) injection 5 ml midazolam 1 mg/ml injection (1 source) Benzodiazepine Start: 11-13-2020 End: 11-13-2020 midazolam (VERSED) injection nortriptyline 25 mg oral capsule (2 sources) Tricyclic Antidepressant Start: 10-14-2021 End: 10-14-2022 take 3 capsules by mouth once daily nortriptyline (PAMELOR) 25 MG capsule Indications: Migraine with aura and without status migrainosus, not intractable Take 3 (three) capsules (75 mg total) by mouth nightly . 90 capsule 11 10/14/2021 03/17/2022 Discontinued (Alternate therapy) Potassium (1 source) End: 10-12-2018 take 600 mg by mouth once daily POTASSIUM ORAL Take 600 mg by mouth daily . 0 10/12/2018 Discontinued (Therapy completed) promethazine (PHENERGAN) 12.5 mg in sodium chloride 0.9%, with overfill 60.5 mL (total volume) IVPB (1 source) Start: 02-20-2020 End: 02-20-2020 take 12.5 mg intravenous route every six hours as needed promethazine (PHENERGAN) 12.5 mg in sodium chloride 0.9%, with overfill 60.5 mL (total volume) IVPB 10 ml propofol 10 mg/ml injection (1 source) General Anesthetic Start: 11-13-2020 End: 11-13-2020 propofoL (DIPRIVAN) injection 24 hr propranolol hydrochloride 60 mg extended release oral capsule (17 sources) beta-Adrenergic Ronda Start: 12-22-2018 End: 08-07-2020 propranolol (INDERAL LA) 60 MG 24 hr capsule rimegepant 75 mg disintegrating oral tablet (5 sources) Start: 04-10-2022 End: 01-13-2023 rimegepant 75 mg ODT Dissolve 1 (one) tablet (75 mg total) on top of tongue as needed (at migraine onset) . 8 tablet 5 04/10/2022 01/13/2023 Discontinued (Patient's Request) 5 ml sugammadex 100 mg/ml injection (1 source) Start: 11-13-2020 End: 11-13-2020 sugammadex (BRIDION) injection tiZANidine 4 mg oral tablet (20 sources) Central alpha-2 Adrenergic Agonist Start: 09-11-2019 End: 10-14-2021 tiZANidine (ZANAFLEX) 4 MG tablet Take 8 mg by mouth as needed . 0 09/11/2019 01/23/2021 Discontinued (Patient's Request) Start: 06-18-2018 End: 06-18-2019 take 1 tablet by mouth every eight hours as needed tiZANidine (ZANAFLEX) 4 MG tablet Take 1 (one) tablet (4 mg total) by mouth every 8 (eight) hours as needed for muscle spasms . 30 tablet 1 06/18/2018 06/18/2019 Active traZODone hydrochloride 50 mg oral tablet (13 sources) Serotonin Reuptake Inhibitor Start: 04-10-2022 End: 01-13-2023 take 1 tablet by mouth once daily as needed for sleep traZODone (DESYREL) 50 MG tablet Take 1 (one) tablet (50 mg total) by mouth nightly as needed for sleep . 30 tablet 11 04/10/2022 01/13/2023 Discontinued (Patient's Request) End: 10-12-2018 take 2 tablets by mouth once daily as needed for sleep traZODone (DESYREL) 50 MG tablet Indications: TAKE 1-2 TABLETS AT BEDTIME FOR SLEEP Take 100 mg by mouth nightly as needed for sleep. 0 10/12/2018 Discontinued (Therapy completed) venlafaxine 37.5 mg oral tablet (4 sources) Serotonin and Norepinephrine Reuptake Inhibitor Start: 10-08-2022 End: 01-13-2023 take 1 tablet by mouth twice daily venlafaxine (EFFEXOR) 37.5 MG tablet Indications: Fibromyalgia Take 1 (one) tablet (37.5 mg total) by mouth 2 (two) times a day . 60 tablet 0 10/08/2022 01/13/2023 Discontinued (Patient's Request) End: 07-22-2017 take 1 capsule by mouth once daily venlafaxine (EFFEXOR-XR) 75 MG 24 hr capsule Take 75 mg by mouth daily. 07/22/2017 Discontinued vitamin b12 1 mg/ml injectable solution (20 sources) Vitamin B12 Start: 06-21-2020 End: 10-14-2021 cyanocobalamin (B-12) injection 1,000 mcg End: 10-14-2021 take 1 tablet by mouth every week cyanocobalamin (B-12) 50 mcg tablet Take 50 mcg by mouth once a week . 0 10/14/2021 Discontinued End: 07-22-2017 cyanocobalamin (B-12) 1,000 mcg/mL injection Inject 1,000 mcg into the shoulder, thigh, or buttocks every 14 (fourteen) days. 07/22/2017 Discontinued zinc gluconate 100 mg oral tablet (20 sources) End: 01-23-2021 zinc gluconate 100 mg Tab Ta ke by mouth daily . 0 01/23/2021 Discontinued (Patient's Request) Problems Active Problems Problem Classification Problem Date Documented Date Episodic/Chronic Acute and chronic tonsillitis (20 sources) Hypertrophy of tonsils; Translations: [Hypertrophy of tonsils] Onset: 1 Resolved: 5 Chronic Acute cerebrovascular disease (20 sources) Cerebrovascular accident; Translations: [Cerebral infarction, unspecified] Onset: 2 Resolved: 2 06-11-2015 Chronic Deficiency and other anemia (2 sources) Anemia; Translations: [Anemia, unspecified type] Episodic Disorders of lipid metabolism (20 sources) Mixed hyperlipidemia; Translations: [Mixed hyperlipidemia] Onset: 2 05-18-2017 Chronic Essential hypertension (20 sources) Hypertensive disorder; Translations: [Essential hypertension] Onset: 6 06-11-2015 Chronic Genitourinary symptoms and ill-defined conditions (20 sources) Urinary incontinence; Translations: [Unspecified urinary incontinence] Onset: 4 01-13-2023 Chronic Headache, including migraine (20 sources) Migraine; Translations: [Migraine, unspecified, not intractable, without status migrainosus] Onset: 2 05-18-2017 Chronic Headache; including migraine (2 sources) Headache; including migraine; Translations: [Headache, unspecified] Onset: 4 Menopausal disorders (20 sources) Postartificial menopausal syndrome; Translations: [Other specified menopausal and perimenopausal disorders] Onset: 2 05-18-2017 Chronic Miscellaneous mental health disorders (1 source) Psychophysiologic insomnia; Translations: [Psychophysiologic insomnia] 05-21-2023 Chronic Mycoses (2 sources) Opportunistic mycosis; Translations: [Candidiasis, unspecified] Episodic Nonmalignant breast conditions (1 source) Unspecified lump in unspecified breast; Translations: [Large mass of breast] Nutritional deficiencies (20 sources) Vitamin D deficiency; Translations: [Vitamin D deficiency, unspecified] Onset: 4 05-18-2017 Chronic Nutritional deficiencies (7 sources) Cobalamin deficiency; Translations: [Deficiency of other specified B group vitamins] Episodic Other aftercare (1 source) Postoperative visit; Translations: [Encounter for other specified surgical aftercare] Episodic Other circulatory disease (1 source) Personal history of transient ischemic attack (TIA), and cerebral infarction without residual deficits; Translations: [Personal history of transient ischemic attack (TIA), and cerebral infarction without residual deficits] Onset: 5 Episodic Other congenital anomalies (20 sources) Spina bifida occulta; Translations: [Spina bifida occulta] Onset: 2 05-18-2017 Chronic Other congenital anomalies (2 sources) Spina bifida occulta; Translations: [Spina bifida occulta] Onset: 8 Chronic Other diseases of bladder and urethra (20 sources) Overactive bladder; Translations: [Overactive bladder] Onset: 4 04-15-2023 Chronic Other ear and sense organ disorders (1 source) Sensorineural hearing loss, bilateral; Translations: [Sensorineural hearing loss, bilateral] Chronic Other ear and sense organ disorders (1 source) Otitis externa; Translations: [Otitis externa, unspecified chronicity, unspecified laterality, unspecified type] Episodic Other ear and sense organ disorders (3 sources) Bilateral earache; Translations: [Otalgia, bilateral] Episodic Other lower respiratory disease (1 source) Congestion of nasal sinus; Translations: [Cough with congestion of paranasal sinus] Episodic Other lower respiratory disease (2 sources) Shortness of breath; Translations: [Shortness of breath] Onset: 4 Episodic Other nervous system disorders (1 source) H/O: ear disorder; Translations: [History of recurrent ear infection] Episodic Other nervous system disorders (1 source) Postoperative pain ; Translations: [Other acute postprocedural pain] Episodic Other non-traumatic joint disorders (2 sources) Pain in left hip; Translations: [Pain in left hip] Onset: 4 Episodic Other non-traumatic joint disorders (1 source) Pain in right hip joint; Translations: [Right hip pain] Other nutritional; endocrine; and metabolic disorders (1 source) Excess panniculus of abdomen; Translations: [Localized adiposity] 11-23-2023 Chronic Other nutritional; endocrine; and metabolic disorders (1 source) Obese class I; Translations: [Obesity (BMI 30.0-34.9)] Onset: 0 10-05-2019 Chronic Other nutritional; endocrine; and metabolic disorders (2 sources) Localized adiposity; Translations: [Localized adiposity] Onset: 4 Chronic Other nutritional; endocrine; and metabolic disorders (10 sources) Obese class I; Translations: [Obesity (BMI 30.0-34.9)] Onset: 0 10-05-2019 Other skin disorders (1 source) Skin finding; Translations: [Excessive and redundant skin and subcutaneous tissue] 12-25-2023 Episodic Other upper respiratory disease (1 source) Seasonal allergic rhinitis; Translations: [Other seasonal allergic rhinitis] Chronic Other upper respiratory disease (1 source) Allergic rhinitis; Translations: [Allergic rhinitis, unspecified] Chronic Other upper respiratory infections (8 sources) Acute maxillary sinusitis; Translations: [Acute maxillary sinusitis, unspecified] Onset: 5 Resolved: 5 Episodic Otitis media and related conditions (8 sources) Bilateral recurrent acute serous otitis media of middle ears; Translations: [Acute serous otitis media, recurrent, bilateral] Onset: 5 Episodic Otitis media and related conditions (2 sources) Otitis media of right ear; Translations: [Dysfunction of bilateral eustachian tubes] Residual codes; unclassified (14 sources) History of reduction of breast; Translations: [S/P bilateral breast reduction] Onset: 0 02-20-2020 Episodic Residual codes; unclassified (2 sources) Family history of diabetes mellitus; Translations: [Family history of diabetes mellitus] Onset: 5 05-23-2024 Episodic Residual codes; unclassified (1 source) Family history of diabetes mellitus; Translations: [Family history of diabetes mellitus] Onset: 5 Episodic Spondylosis; intervertebral disc disorders; other back problems (20 sources) Low back pain; Translations: [Chronic low back pain] Onset: 2 Resolved: 9 05-18-2017 Episodic Syncope (1 source) Syncope and collapse; Translations: [Syncope and collapse] Onset: 5 Episodic Thyroid disorders (20 sources) Hypothyroidism; Translations: [Acquired hypothyroidism] Onset: 2 05-18-2017 Chronic Unclassified (1 source) Preprocedural examination done; Translations: [Pre-op evaluation] Unclassified (1 source) Patient encounter status; Translations: [Encounter for screening mammogram for malignant neoplasm of breast] Unclassified (1 source) Low back pain, unspecified; Translations: [Low back pain, unspecified] Onset: 4 Urinary tract infections (2 sources) Urinary tract infection, site not specified; Translations: [Urinary tract infection, site not specified] Onset: 4 Episodic Past or Other Problems Problem Classification Problem Date Documented Da te Episodic/Chronic Abdominal pain (20 sources) Epigastric pain; Translations: [Epigastric pain] Onset: 06-26-2021 Resolved: 11-13-2022 Episodic Biliary tract disease (16 sources) Calculus of bile duct without cholangitis or cholecystitis without obstruction; Translations: [Calculus of gallbladder with chronic cholecystitis without obstruction] Onset: 04-23-2017 04-28-2017 Episodic Gastrointestinal hemorrhage (20 sources) Rectal hemorrhage; Translations: [Hemorrhage of anus and rectum] Onset: 01-12-2020 Resolved: 08-07-2020 01-12-2020 Episodic Genitourinary symptoms and ill-defined conditions (20 sources) Dysuria; Translations: [Dysuria] Onset: 12-24-2022 Resolved: 05-21-2023 12-24-2022 Episodic Immunizations and screening for infectious disease (2 sources) Other specified abnormal immunological findings in serum; Translations: [Other specified abnormal immunological findings in serum] Onset: 04-17-2023 Episodic Malaise and fatigue (20 sources) Fatigue; Translations: [Other fatigue] Onset: 06-18-2020 Resolved: 11-13-2022 06-18-2020 Episodic Mood disorders (20 sources) Organic mood disorder; 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, unspecified] Onset: 12-21-2013 Resolved: 07-22-2017 07-22-2017 Episodic Mood disorders (8 sources) Mood disorders Onset: 05-15-2022 Resolved: 05-23-2024 05-15-2022 Noninfectious gastroenteritis (20 sources) Chronic diarrhea; Translations: [Noninfective gastroenteritis and colitis, unspecified] Onset: 06-26-2021 Episodic Nonmalignant breast conditions (20 sources) Large breast; Translations: [Breast seroma] Onset: 10-05-2019 Resolved: 05-15-2022 12-19-2019 Episodic Nonspecific chest pain (20 sources) Chest pain; Translations: [Chest pain, unspecified] Onset: 06-11-2015 Resolved: 07-22-2017 07-22-2017 Episodic Osteoporosis (20 sources) Osteoporosis; Translations: [Age-related osteoporosis without current pathological fracture] Onset: 07-22-2017 Resolved: 07-22-2017 07-22-2017 Chronic Other bone disease and musculoskeletal deformities (20 sources) Osteopenia; Translations: [Disorder of bone and articular cartilage] Onset: 06-14-2012 Resolved: 07-22-2017 07-22-2017 Episodic Other bone disease and musculoskeletal deformities (20 sources) Disorder of bone and articular cartilage; Translations: [Disorder of bone, unspecified] Onset: 06-14-2012 Resolved: 07-22-2017 07-22-2017 Episodic Other connective tissue disease (3 sources) Pain in left foot; Translations: [Left foot pain] Onset: 12-21-2023 Episodic Other connective tissue disease (20 sources) Fibromyalgia; Translations: [Fibromyalgia] Onset: 11-11-2022 11-11-2022 Episodic Other connective tissue disease (2 sources) Calcaneal spur, left foot; Translations: [Calcaneal spur, left foot] Onset: 12-21-2023 Episodic Other connective tissue disease (2 sources) Other enthesopathy of left foot and ankle; Translations: [Other enthesopathy of left foot and ankle] Onset: 12-21-2023 Episodic Other connective tissue disease (2 sources) Ganglion, left ankle and foot; Translations: [Ganglion, left ankle and foot] Onset: 12-21-2023 Episodic Other eye disorders (3 sources) Ocular pain, right eye; Translations: [OCULAR PAIN RIGHT EYE] Onset: 06-29-2022 Episodic Other lower respiratory disease (20 sources) Cough; Translations: [Cough] Onset: 01-23-2021 Resolved: 07-09-2021 Episodic Other nervous system disorders (16 sources) Other symptoms and signs involving cognitive functions and awareness; Translations: [Other signs and symptoms involving cognition] Onset: 05-21-2023 Resolved: 11-23-2023 05-21-2023 Episodic Other non-traumatic joint disorders (20 sources) Hip pain; Translations: [Pain in right hip] Onset: 10-12-2018 10-12-2018 Episodic Other nutritional; endocrine; and metabolic disorders (20 sources) Obesity; Translations: [Obesity, unspecified] Resolved: 07-22-2017 07-22-2017 Chronic Other screening for suspected conditions (not mental disorders or infectious disease) (5 sources) Patient encounter status; Translations: [Encounter for screening for cardiovascular disorders] Onset: 07-20-2023 Episodic Other skin disorders (20 sources) Loss of hair; Translations: [Nonscarring hair loss, unspecified] Onset: 05-15-2022 Resolved: 05-21-2023 Episodic Other upper respiratory infections (20 sources) Sinusitis; Translations: [Chronic sinusitis, unspecified] Onset: 01-23-2021 Resolved: 07-09-2021 Chronic Residual codes; unclassified (20 sources) Family history of cancer of colon; Translations: [Family history of malignant neoplasm of digestive organs] Onset: 01-12-2020 01-12-2020 Episodic Residual codes; unclassified (20 sources) Chronic back pain ; Translations: [Chronic back pain, unspecified back location, unspecified back pain laterality] Onset: 10-05-2019 10-05-2019 Episodic Thyroid disorders (20 sources) Thyroid function tests abnormal; Translations: [Abnormal results of thyroid function studies] Onset: 06-26-2011 Resolved: 07-22-2017 07-22-2017 Episodic Transient cerebral ischemia (20 sources) Transient cerebral ischemia; Translations: [Transient cerebral ischemic attack, unspecified] Onset: 11-08-2020 Resolved: 10-14-2021 11-08-2020 Chronic Unclassified (20 sources) Insomnia; Translations: [Insomnia, unspecified] Onset: 07-22-2017 07-22-2017 Episodic Unclassified (1 source) Low back pain, unspecified; Translations: [Low back pain, unspecified] Onset: 09-24-2023 Viral infection (20 sources) Disease caused by 2019-nCoV; Translations: [COVID-19] Onset: 01-23-2021 Resolved: 07-09-2021 Episodic Results Test Name Value Interpretation Reference Range Facility Anion gap in Serum or Plasma Ordered By: Bartolo Harrington on 09-30-2024 Anion gap [Moles/Vol] 13 mmol/L 5-15 [facility] BUN/creatinine ratioOrdered By: Bartolo Harrington on 09-30-2024 Urea nitrogen/Creatinine [Mass ratio] 12.9 mg/mg 10- [facility] Bilirubin, totalOrdered By: Bartolo Harrington on 09-30-2024 Bilirubin [Mass/Vol] 0.17 mg/dL 0.00-1.30 [facility] CBC-Complete Blood Cnt No Di ffon 09-30-2024 Erythrocyte distribution width (RBC) [Ratio] 13.7 % Normal 11.6-14.6 [facility] Comment on above: Performed By: #### L 500.4100, L506.0400, L500.4050, L501.9520, L100.0500 #### [facility] [address] [place], [address] Hematocrit (Bld) [Volume fraction] 38.4 % Normal 37-47 [facility] Comment on above: Performed By: #### L 500.4100, L506.0400, L500.4050, L501.9520, L100.0500 #### [facility] [address] [place], [address] Hemoglobin (Bld) [Mass/Vol] 13.2 g/dL Normal 12.0-15.0 [facility] Comment on above: Performed By: #### L 500.4100, L506.0400, L500.4050, L501.9520, L100.0500 #### [facility] [address] [place], [address] MCH (RBC) [Entitic mass] 30.8 pg Normal 27.0-32.0 [facility] Comment on above: Performed By: #### L 500.4100, L506.0400, L500.4050, L501.9520, L100.0500 #### [facility] [address] [place], [address] MCHC (RBC) [Mass/Vol] 34.4 g/dL Normal 32-36 [facility] Comment on above: Performed By: #### L 500.4100, L506.0400, L500.4050, L501.9520, L100.0500 #### [facility] [address] [place], [address] MCV (RBC) [Entitic vol] 89.7 fL Normal 81-99 [facility] Comment on above: Performed By: #### L 500.4100, L506.0400, L500.4050, L501.9520, L100.0500 #### [facility] [address] [place], [address] Platelet mean volume (Bld) [Entitic vol] 9.4 fL Normal 6.2-12.0 [facility] Comment on above: Performed By: #### L 500.4100, L506.0400, L500.4050, L501.9520, L100.0500 #### [facility] [address] [place], [address] Platelets (Bld) [#/Vol] 433 10*3/uL Normal 150-450 [facility] Comment on above: Performed By: #### L 500.4100, L506.0400, L500.4050, L501.9520, L100.0500 #### [facility] [address] [place], [address] RBC (Bld) [#/Vol] 4.28 10*6/uL Normal 4.2-5.4 [facility] Comment on above: Performed By: #### L 500.4100, L506.0400, L500.4050, L501.9520, L100.0500 #### [facility] [address] [place], [address] RDW SD 45.1 fl High 35.1-43.9 [facility] Comment on above: Performed By: #### L 500.4100, L506.0400, L500.4050, L501.9520, L100.0500 #### [facility] [address] [place], [address] WBC (Bld) [#/Vol] 9.7 10*3/uL Normal 4.4-11.0 [facility] Comment on above: Performed By: #### L 500.4100, L506.0400, L500.4050, L501.9520, L100.0500 #### [facility] [address] [place], [address] Calculated very low density lipoprotein (VLDL) cholesterol measurementOrdered By: Bartolo Harrington on 09-30-2024 Calculated very low density lipoprotein (VLDL) cholesterol measurement 48 mg/dL High 5-40 [facility] Carbon dioxide, total [Moles /volume] in Central venous bloodOrdered By: Bartolo Harrington on 09-30-2024 CO2 [Moles/Vol] 24.6 mmol/L 21.0-32.0 [facility] Chloride assayOrdered By: Ra concepción Harrington on 09-30-2024 Chloride [Moles/Vol] 101 mmol/L 98-108 [facility] Comprehensive Metabolic Prof ilon 09-30-2024 Albumin [Mass/Vol] 4.2 g/dL Normal 3.5-5.0 [facility] Comment on above: Performed By: #### L 500.4100, L506.0400, L500.4050, L501.9520, L100.0500 #### [facility] [address] [place], [address] Albumin/Globulin [Mass ratio] 1.4 {ratio} Normal 0.9-2.4 [facility] Comment on above: Performed By: #### L 500.4100, L506.0400, L500.4050, L501.9520, L100.0500 #### [facility] [address] [place], [address] ALK PHOS 101 U/L Normal 35-104 [facility] Comment on above: Performed By: #### L 500.4100, L506.0400, L500.4050, L501.9520, L100.0500 #### [facility] [address] [place], [address] ALT [Catalytic activity/Vol] 19 U/L Normal <=34 [facility] Comment on above: Performed By: #### L 500.4100, L506.0400, L500.4050, L501.9520, L100.0500 #### [facility] [address] [place], [address] AST [Catalytic activity/Vol] 25 U/L Normal <=31 [facility] Comment on above: Performed By: #### L 500.4100, L506.0400, L500.4050, L501.9520, L100.0500 #### [facility] [address] [place], [address] Bilirubin [Mass/Vol] 0.17 mg/dL Normal 0.00-1.30 [facility] Comment on above: Performed By: #### L 500.4100, L506.0400, L500.4050, L501.9520, L100.0500 #### [facility] [address] [place], [address] BUN/CRE 12.9 RATIO Normal 10-20 [facility] Comment on above: Performed By: #### L 500.4100, L506.0400, L500.4050, L501.9520, L100.0500 #### [facility] [address] [place], [address] Calcium [Mass/Vol] 8.9 mg/dL Normal 7.6-11.0 [facility] Comment on above: Performed By: #### L 500.4100, L506.0400, L500.4050, L501.9520, L100.0500 #### [facility] [address] [place], [address] Chloride [Moles/Vol] 101 mmol/L Normal 98-108 [facility] Comment on above: Performed By: #### L 500.4100, L506.0400, L500.4050, L501.9520, L100.0500 #### [facility] [address] [place], [address] CO2 [Moles/Vol] 24.6 mmol/L Normal 21.0-32.0 [facility] Comment on above: Performed By: #### L 500.4100, L506.0400, L500.4050, L501.9520, L100.0500 #### [facility] [address] [place], [address] Creatinine [Mass/Vol] 0.85 mg/dL Normal 0.70-1.20 [facility] Comment on above: Performed By: #### L 500.4100, L506.0400, L500.4050, L501.9520, L100.0500 #### [facility] [address] [place], [address] GAP 13 Normal 5-15 [facility] Comment on above: Performed By: #### L 500.4100, L506.0400, L500.4050, L501.9520, L100.0500 #### [facility] [address] [place], [address] GFR/1.73 sq M.predicted among non-blacks MDRD (S/P/Bld) [Vol rate/Area] 83 mL/min/{1.73_m2} Normal >60 [facility] Comment on above: Result Comment: mL/m in/1.73m2 CKD-EPI Creatinine Equation (2020) Performed By: #### L 500.4100, L506.0400, L500.4050, L501.9520, L100.0500 #### [facility] [address] [place], [address] Globulin (S) [Mass/Vol] 3.0 g/dL Normal 2.2-4.2 [facility] Comment on above: Performed By: #### L 500.4100, L506.0400, L500.4050, L501.9520, L100.0500 #### [facility] [address] [place], [address] Glucose [Mass/Vol] 88 mg/dL Normal 70-99 [facility] Comment on above: Performed By: #### L 500.4100, L506.0400, L500.4050, L501.9520, L100.0500 #### [facility] [address] [place], [address] Potassium [Moles/Vol] 4.0 mmol/L Normal 3.3-5.1 [facility] Comment on above: Performed By: #### L 500.4100, L506.0400, L500.4050, L501.9520, L100.0500 #### [facility] [address] [place], [address] Sodium [Moles/Vol] 139 mmol/L Normal 133-145 [facility] Comment on above: Performed By: #### L 500.4100, L506.0400, L500.4050, L501.9520, L100.0500 #### [facility] [address] [place], [address] T PROT 7.2 g/dL Normal 5.9-8.4 [facility] Comment on above: Performed By: #### L 500.4100, L506.0400, L500.4050, L501.9520, L100.0500 #### [facility] [address] [place], [place], [id number] Urea nitrogen [Mass/Vol] 11 mg/dL Normal 4-19 [facility] Comment on above: Performed By: #### L 500.4100, L506.0400, L500.4050, L501.9520, L100.0500 #### [facility] [address] [place], [address] Erythrocyte distribution wid th ratioOrdered By: Bartolo Harrington on 09-30-2024 Erythrocyte distribution width (RBC) [Ratio] 13.7 % 11.6-14.6 [facility] Erythrocyte distribution wid th standard deviationOrdered By: Bartolo Harrington on 09-30-2024 Erythrocyte distribution width (RBC) [Ratio] 45.1 fl High 35.1-43.9 [facility] Glomerular filtration rate ( GFR) estimation/1.73 sq m using serum, plasma, or whole bOrdered By: Bartolo Harrington on 09-30-2024 GFR/1.73 sq M.predicted among non-blacks MDRD (S/P/Bld) [Vol rate/Area] 83 mL/min/{1.73_m2} >60 [facility] Comment on above: mL/min/1.73m2 CKD-EP I Creatinine Equation (2020) Hematocrit Auto (Bld) [Volum e fraction]Ordered By: Bartolo Harrington on 09-30-2024 Hematocrit (Bld) [Volume fraction] 38.4 % 37-47 [facility] Hemoglobin measurementOrdere d By: Bartolo Harrington on 09-30-2024 Hemoglobin (Bld) [Mass/Vol] 13.2 g/dL 12.0-15.0 [facility] LDL calc ser/plasOrdered By: Bartolo Harrington on 09-30-2024 Cholesterol in LDL [Mass/Vol] 104 mg/dL [facility] Comment on above: Pzuwvkecdi=077-787 m g/dL & Higher Hjhb=659 mg/dL or greater Laboratory - Chemistry and C hemistry - challengeOrdered By: Bartolo Harrington on 09-30-2024 AST [Catalytic activity/Vol] 25 U/L <32 [facility] Lipid Profileon 09-30-2024 CHOL:HDL 2.89 Normal [facility] Comment on above: Performed By: #### L 500.4100, L506.0400, L500.4050, L501.9520, L100.0500 #### [facility] [address] [place], [address] Cholesterol [Mass/Vol] 232 mg/dL High <=200 [facility] Comment on above: Result Comment: Chol esterol level, Desirable <200 mg/dL Borderline high cholesterol 200-239 mg/dL High cholesterol >=240 mg/dL Recommendations of the NCEP Adult Treatment Panel for the following risk-cutoff thresholds for the [place] population. Performed By: #### L 500.4100, L506.0400, L500.4050, L501.9520, L100.0500 #### [facility] [address] [place], [address] Cholesterol in HDL [Mass/Vol] 80 mg/dL Normal [facility] Comment on above: Result Comment: Belia onal Cholesterol Education Program (NCEP) guidelines: <40 mg/dL: Low HDL-cholesterol (major risk factor for CHD) >= 60 mg/dL: High HDL-cholesterol (negative risk factor for CHD) HDL-cholesterol is affected by a number of factors, e.g. smoking, exercise, hormones, sex and age. Performed By: #### L 500.4100, L506.0400, L500.4050, L501.9520, L100.0500 #### [facility] [address] [place], [address] Cholesterol in LDL [Mass/Vol] 104 mg/dL Normal [facility] Comment on above: Result Comment: Bord icnuuo=191-396 mg/dL Higher Zhct=604 mg/dL or greater Performed By: #### L 500.4100, L506.0400, L500.4050, L501.9520, L100.0500 #### [facility] [address] [place], [address] Cholesterol in VLDL [Mass/Vol] 48 mg/dL High 5-40 [facility] Comment on above: Performed By: #### L 500.4100, L506.0400, L500.4050, L501.9520, L100.0500 #### [facility] [address] [place], [address] Triglyceride [Mass/Vol] 241 mg/dL High [facility] Comment on above: Result Comment: The drugs N-Acetylcysteine and Metamizole may falsely depress this assay. Normal range: <150 mg/dL Borderline High: 150-199 mg/dL High: 200-499 mg/dL Very High: >500 mg/dL Performed By: #### L 500.4100, L506.0400, L500.4050, L501.9520, L100.0500 #### [facility] [address] [place], [address] MCV (mean corpuscular volume ) determinationOrdered By: Bartolo Harrington on 09-30-2024 MCV (RBC) [Entitic vol] 89.7 fL 81-99 [facility] Mean corpuscular hemoglobin (MCH) determinationOrdered By: Bartolo Harrington on 09-30-2024 MCH (RBC) [Entitic mass] 30.8 pg 27.0-32.0 [facility] Mean corpuscular hemoglobin concentration (MCHC) determinationOrdered By: Bartolo Harrington on 09-30-2024 MCHC (RBC) [Mass/Vol] 34.4 g/dL 32-36 [facility] Mean platelet volume determi nationOrdered By: Bartolo Harrington on 09-30-2024 Platelet mean volume (Bld) [Entitic vol] 9.4 fL 6.2-12.0 [facility] Platelet countOrdered By: Ra concepción Harrington on 09-30-2024 Platelets (Bld) [#/Vol] 433 10*3/uL 150-450 [facility] Potassium measurement (mass/ volume)Ordered By: Bartolo Harrington on 09-30-2024 Potassium (Unsp spec) [Mass/Vol] 4.0 mmol/L 3.3-5.1 [facility] RBC Auto (Bld) [#/Vol]Ordere d By: Bartolo Harrington on 09-30-2024 RBC (Bld) [#/Vol] 4.28 10*6/uL 4.2-5.4 [facility] Screening total cholesterol/ high density lipoprotein (HDL) cholesterol ratioOrdered By: Bartolo Harrington on 09-30-2024 Cholesterol.total/Cho lesterol in HDL [Mass ratio] 2.89 {ratio} [facility] Serum creatinine measurement (mass/volume)Ordered By: Bartolo Harrington on 09-30-2024 Creatinine [Mass/Vol] 0.85 mg/dL 0.70-1.20 [facility] Serum globulin measurementOr dered By: Bartolo Harrington on 09-30-2024 Globulin (S) [Mass/Vol] 3.0 g/dL 2.2-4.2 [facility] Serum glucose measurement (m ass/volume)Ordered By: Bartolo Harrington on 09-30-2024 Glucose [Mass/Vol] 88 mg/dL 70-99 [facility] Serum or plasma alanine roque otransferase (ALT) measurementOrdered By: Bartolo Harrington 09-30-2024 ALT [Catalytic activity/Vol] 19 U/L <35 [facility] Serum or plasma albumin jose l urement (mass/volume)Ordered By: Bartolo Harrington on 09-30-2024 Albumin [Mass/Vol] 4.2 g/dL 3.5-5.0 [facility] Serum or plasma albumin/glob ulin mass ratioOrdered By: Bartolo Harrington 09-30-2024 Albumin/Globulin [Mass ratio] 1.4 {ratio} 0.9-2.4 [facility] Serum or plasma alkaline katy sphatase measurementOrdered By: Bartolo Harrington 09-30-2024 ALP [Catalytic activity/Vol] 101 U/L 35-104 [facility] Serum or plasma calcium jose l urement (mass/volume)Ordered By: Bartolo Harrington on 09-30-2024 Calcium [Mass/Vol] 8.9 mg/dL 7.6-11.0 [facility] Serum or plasma cholesterol in HDL measurement (mass/volume)Ordered By: Bartolo Harrington on 09-30-2024 Cholesterol in HDL [Mass/Vol] 80 mg/dL >40 [facility] Comment on above: National Cholesterol Education Program (NCEP) guidelines:<40 mg/dL: Low HDL-cholesterol (major risk factor for CHD)>= 60 mg/dL: High HDL-cholesterol (negative risk factor for CHD)HDL-cholesterol is affected by a number of factors, e.g. smoking, exercise, hormones, sex and age. Serum or plasma cholesterol measurement (mass/volume)Ordered By: Bartolo Harrington on 09-30-2024 Cholesterol [Mass/Vol] 232 mg/dL High <201 [facility] Comment on above: Cholesterol level, D esirable <200 mg/dLBorderline high cholesterol 200-239 mg/dLHigh cholesterol >=240 mg/dLRecommendations of the NCEP Adult Treatment Panel for the following risk-cutoff thresholds for the [place] population. Serum or plasma urea nitroge n measurement (mass/volume)Ordered By: Bartolo Harrington on 09-30-2024 Urea nitrogen [Mass/Vol] 11 mg/dL 4-19 [facility] Sodium levelOrdered By: Lizzie Harrington on 09-30-2024 Sodium [Moles/Vol] 139 mmol/L 133-145 [facility] T4 Free Directon 09-30-2024 T4 FREE DIRECT 0.70 ng/dL Low 0.76-1.46 [facility] Comment on above: Performed By: #### L 500.4100, L506.0400, L500.4050, L501.9520, L100.0500 #### [facility] [address] [place], [place], [id number] T4 freeOrdered By: Bartolo rayo on 09-30-2024 Free T4 [Mass/Vol] 0.70 ng/dL Low 0.76-1.46 [facility] TSH DL <= 0.005 mIU/L QnOrde red By: Bartolo Harrington on 09-30-2024 TSH Qn 60.800 uIU/mL High 0.300-4.20 0 [facility] Thyroid Stim Hormone (TSH)on 09-30-2024 TSH 60.800 uIU/mL High 0.300-4.20 0 [facility] Comment on above: Performed By: #### L 500.4100, L506.0400, L500.4050, L501.9520, L100.0500 #### [facility] [address] [place], [place], [id number] Total proteinOrdered By: Jay Harrington on 09-30-2024 Protein [Mass/Vol] 7.2 g/dL 5.9-8.4 [facility] Triglycerides measurementOrd ered By: Bartolo Harrington on 09-30-2024 Triglyceride [Mass/Vol] 241 mg/dL High <199 [facility] Comment on above: The drugs N-Acetylcy steine and Metamizole may falsely depress this assay. Normal range: <150 mg/dLBorderline High: 150-199 mg/dLHigh: 200-499 mg/dLVery High: >500 mg/dL White blood cell (WBC) count Ordered By: Bartolo Harrington on 09-30-2024 WBC (Bld) [#/Vol] 9.7 10*3/uL 4.4-11.0 [facility] Neurology Visit Reporton Neurology Visit Report [facility] [address] [place] [address], [address] [place] [address] OFFICE VISIT Date of Service: 09/29/24 MR#: [id number] Acct: [id number] Name: LIMA JORDAN Rep #: [id number] : 1970 Provider: Dr. Bartolo russo MD Age/Sex: 53/F Location: [facility] Status: Signed HPI HPI Chief Complaint: Establish Care Details: History: The patient is a 53-year-old right-handed female with a past medical history of hypertension, hypothyroidism, atrial flutter, 2 strokes, and migraine headaches. She has been experiencing migraine headaches since she was in her 20s. Her headaches are frontal headaches with which she experiences photophobia and phonophobia. At times she experiences associated nausea. She has been taking amitriptyline for headache prophylaxis and this has reduced her headache severity. She experiences 2 to 3 days of headache per week. About 3 days/month her headaches are severe. Individual headaches last about 1 day each. Certain odors, caffeine and chocolate are triggers for her headaches. She previously took sumatriptan for her headaches however following her strokes, sumatriptan was discontinued. She states that she has had multiple syncopal episodes and was found to have atrial flutter. She states that a beta-ronda was initiated and this has been of benefit. She experiences episodes of nonpositional lightheadedness. She has had 1 syncopal episode since 2023 and this occurred in August 2024. She reports having had 2 strokes that were associated with syncopal episodes, the first occurred in 2019 and the second occurred in 2022. In addition to syncope she experienced dysarthria. Eliquis was initiated for her atrial flutter following her second stroke in 2022. She has hyperlipidemia but is not taking a lipid-lowering agent. She denies having neck pain, low back pain, numbness, weakness, or vision change. Amitriptyline is of benefit for her insomnia. Past Medical History: As above. There is no history of hypertension, lung disease, seizure, cancer, renal disease, or sleep apnea. Social History: There is no history of smoking tobacco. There is no history of alcohol abuse or illicit drug use. Family History: The patient's mother and father had strokes. There is no family history of cerebral aneurysm or seizure. Review of Systems: As above. The patient has not had any recent fever, rash, chest pain, shortness of breath, or urinary problems. She denies having depression. She has some anxiety. She has some insomnia. She has had flareups of diverticulitis. She has lost 30 pounds since 2022. Physical Exam: General: Well-developed, well-nourished female in no acute distress. Neuro: The patient is awake and alert and responds appropriately; speech is fluent; language function is within normal limits Cranial nerves: PERRL, 3mm bilaterally; EOMI; visual kitchen are full; visual acuity is 20/40 bilaterally; face is symmetrical; tongue is midline; there are no deficits to pinprick Cerebellar system: No nystagmus or dysmetria Deep tendon reflexes: +2 at the ankles and absent at the knees, biceps bilaterally, triceps bilaterally, and brachioradialis bilaterally; plantar responses are downward bilaterally Motor: Strength 5/5 in the biceps bilaterally, abductor pollicis brevis muscles bilaterally, first dorsal interosseous muscles bilaterally, quadriceps bilaterally and foot dorsiflexors bilaterally; no drift Sensory: There are no deficits to soft touch, vibration or pinprick Gait: Unremarkable HEENT: Normocephalic; atraumatic; tympanic membranes are clear Neck: No bruits Heart: Regular rhythm and rate Extremities: No cyanosis or edema; dorsalis pedis pulses are +2 bilaterally Supplemental Info Head CT (06/23/2023): Findings: Normal exam. There is no evidence of mass, mass effect, infarct or hemorrhage. The ventricles, sulci and basilar cisterns are normal for the patient's age. The cerebral hemispheres, brainstem and cerebellar hemispheres are normal. The gutierrez-white interface is intact. The osseous structures are normal. Impression: Normal examination. Lumbar MRI (09/25/2023): Findings: Alignment normal. There is no spondylosis appreciated. No spondylolisthesis. No abnormal signal in the bone marrow spaces. No compression fractures. L5-S1, moderate facet arthropathy on the right and mild facet arthropathy on the left. This is stable. Mild disc desiccation and mild disc space narrowing along the posterior margin of the disc space stable. No spinal canal stenosis. Disc space narrowing results in mild foraminal narrowing bilaterally. This level is stable. L4-5, mild disc desiccation. No spinal stenosis. Facet joints are unremarkable. No significant neuroforaminal narrowing. L3-4, mild disc desiccation. No spinal stenosis. No foraminal narrowing. L2-3, no significant degenerative changes. No spinal stenos (more content not included)... Normal [facility] CBC (INCLUDES DIFF/PLT)on ABSOLUTE BAND NEUTROPHILS Normal [facility] Comment on above: Performed By: #### 4 96, 866, 899, 62024, 59329, 6399 #### [facility] [address] [facility], [address] [place] [address] Motorcycle Maker: Son Amaro MD ABSOLUTE BASOPHILS Normal [facility] Comment on above: Performed By: #### 4 96, 866, 899, 82762, 90289, 6399 #### [facility] [address], [address] [place] [address] Motorcycle Maker: Son Amaro MD ABSOLUTE BLASTS Normal [facility] Comment on above: Performed By: #### 4 96, 866, 899, 57011, 58711, 6399 #### [facility] of [place] [address], [address] [place] [address] Motorcycle Maker: Son Amaro MD ABSOLUTE EOSINOPHILS [facility] Comment on above: Performed By: #### 4 96, 866, 899, 71112, 17337, 6399 #### [facility] [place] [address] , [address] [place] [address] Motorcycle Maker: Son Amaro MD ABSOLUTE LYMPHOCYTES [facility] Comment on above: Performed By: #### 4 96, 866, 899, 03047, 52563, 6399 #### [facility] [place] [address] [place] [address] Motorcycle Maker: Son Amaro MD ABSOLUTE METAMYELOCYTES Normal [facility] Comment on above: Performed By: #### 4 96, 866, 899, 20607, 48498, 6399 #### [facility] [address], [address] [place] [address] Motorcycle Maker: Son Amaro MD ABSOLUTE MONOCYTES Normal [facility] Comment on above: Performed By: #### 4 96, 866, 899, 91563, 02551, 6399 #### [facility] [address] [address] Motorcycle Maker: Son Amaro MD ABSOLUTE MYELOCYTES Normal [facility] Comment on above: Performed By: #### 4 96, 866, 899, 11318, 71137, 6399 #### [facility] [place] [address], [address] [place] [address] Motorcycle Maker: Son Amaro MD ABSOLUTE NEUTROPHILS [facility] Comment on above: Performed By: #### 4 96, 866, 899, 31219, 92245, 6399 #### [facility] [place] [address], [address] [place] [address] Motorcycle Maker: Son Amaro MD ABSOLUTE NUCLEATED RBC Normal [facility] Comment on above: Performed By: #### 4 96, 866, 899, 29601, 88110, 6399 #### [facility] [place] [address], [address] [place] [address] Motorcycle Maker: Son Amaro MD ABSOLUTE PROMYELOCYTES Normal [facility] Comment on above: Performed By: #### 4 96, 866, 899, 67177, 84166, 6399 #### [facility] [place] [address] , [address] [place] [address] Motorcycle Maker: Son Amaro MD BAND NEUTROPHILS Normal [facility] Comment on above: Performed By: #### 4 96, 866, 899, 43481, 32801, 6399 #### [facility] [place] [address], [address] [place] [address] Motorcycle Maker: Son Amaro MD BASOPHILS Normal [facility] Comment on above: Performed By: #### 4 96, 866, 899, 48245, 68205, 6399 #### [facility] [place] [address], [address] [place] [address] Motorcycle Maker: Son Amaro MD BLASTS Normal [facility] Comment on above: Performed By: #### 4 96, 866, 899, 45606, 43577, 6399 #### [facility] [place] [address], [address] [place] [address] Motorcycle Maker: Son Amaro MD COMMENT(S) Normal [facility] Comment on above: Performed By: #### 4 96, 866, 899, 83744, 57804, 6399 #### [facility] [address], [address] [place] [address] Motorcycle Maker: Son Amaro MD [facility] Normal [facility] Comment on above: Performed By: #### 4 96, 866, 899, 59831, 40411, 6399 #### [facility] [address], [address] [place] [address] Motorcycle Maker: Son Amaro MD [facility] Normal [facility] Comment on above: Performed By: #### 4 96, 866, 899, 23950, 81999, 6399 #### [facility] [address], [address] [place] [address] Motorcycle Maker: Son Amaro MD [facility] Normal [facility] Comment on above: Performed By: #### 4 96, 866, 899, 78421, 09159, 6399 #### [facility] [address], [address] [place] [address] Motorcycle Maker: Son Amaro MD [facility] Normal [facility] Comment on above: Performed By: #### 4 96, 866, 899, 22535, 45318, 6399 #### [facility] [address], [address] [place] [address] Motorcycle Maker: Son Amaro MD [facility] Normal [facility] Comment on above: Performed By: #### 4 96, 866, 899, 14131, 14311, 6399 #### [facility] [address], [address] [place] [address] Motorcycle Maker: Son Amaro MD [facility] Normal [facility] Comment on above: Performed By: #### 4 96, 866, 899, 74954, 96602, 6399 #### [facility] [address], [address] [place] [address] Motorcycle Maker: Son Amaro MD [facility] Normal [facility] Comment on above: Performed By: #### 4 96, 866, 899, 53195, 27039, 6399 #### [facility] [address], [address] [place] [address] Motorcycle Maker: Son Amaro MD METAMYELOCYTES Normal [facility] Comment on above: Performed By: #### 4 96, 866, 899, 20374, 76815, 6399 #### [facility] [address], [address] [place] [address] Motorcycle Maker: Son Amaro MD MONOCYTES Normal [facility] Comment on above: Performed By: #### 4 96, 866, 899, 27421, 23367, 6399 #### [facility] [address], [address] [place] [address] Motorcycle Maker: Son Amaro MD MPV Normal [facility] Comment on above: Performed By: #### 4 96, 866, 899, 41216, 49590, 6399 #### [facility] [place] [address], [address] [place] [address] Motorcycle Maker: Son Amaro MD MYELOCYTES Normal [facility] Comment on above: Performed By: #### 4 96, 866, 899, 97351, 70953, 6399 #### [facility] [address], [address] [place] [address] Motorcycle Maker: Son Amaro MD NEUTROPHILS Normal [facility] Comment on above: Performed By: #### 4 96, 866, 899, 16517, 43750, 6399 #### [facility] [address], [address] [place] [address] Motorcycle Maker: Son Amaro MD NUCLEATED RBC Normal [facility] Comment on above: Performed By: #### 4 96, 866, 899, 37285, 83650, 6399 #### [facility] [address], [address] [place] [address] Motorcycle Maker: Son Amaro MD PLATELET COUNT Normal [facility] Comment on above: Performed By: #### 4 96, 866, 899, 61786, 81336, 6399 #### [facility] [place] [address], [address] [place] [address] Motorcycle Maker: Son Amaro MD PROMYELOCYTES Normal [facility] Comment on above: Performed By: #### 4 96, 866, 899, 23724, 82550, 6399 #### [facility] [address], [address] [place] [address] Motorcycle Maker: Son Amaro MD RDW Normal [facility] Comment on above: Performed By: #### 4 96, 866, 899, 34421, 58839, 6399 #### [facility] [place] [address], [address] [place] [address] Motorcycle Maker: Son Amaro MD REACTIVE LYMPHOCYTES [facility] Comment on above: Performed By: #### 4 96, 866, 899, 10708, 56044, 6399 #### [facility] [place] [address], [address] [place] [address] Motorcycle Maker: Sno Amaro MD RED BLOOD CELL COUNT Normal [facility] Comment on above: Performed By: #### 4 96, 866, 899, 57084, 65805, 6399 #### [facility] [place] [address], [address] [place] [address] Motorcycle Maker: Son Amaro MD WHITE BLOOD CELL COUNT Normal [facility] Comment on above: Performed By: #### 4 96, 866, 899, 30059, 89237, 6399 #### [facility] [address], [address] [place] [address] Motorcycle Maker: Son Amaro MD COMPREHENSIVE METABOLIC PANE L W/ANION GAPon 05-24-2024 Albumin [Mass/Vol] 4.1 g/dL Normal 3.6-5.1 [facility] Comment on above: Performed By: #### 4 96, 866, 899, 88471, 74114, 6399 #### [facility] [place] [address], [address] [place] [address] Motorcycle Maker: Son Amaro MD ALP [Catalytic activity/Vol] 76 U/L Normal 37-153 [facility] Comment on above: Performed By: #### 4 96, 866, 899, 12969, 15879, 6399 #### [facility] [place] [address] Motorcycle Maker: Son Amaro MD ALT [Catalytic activity/Vol] 16 U/L Normal 6-29 [facility] Comment on above: Performed By: #### 4 96, 866, 899, 82382, 04329, 6399 #### [facility] [place] [address] Motorcycle Maker: Son Amaro MD AST [Catalytic activity/Vol] 18 U/L Normal 10-35 [facility] Comment on above: Performed By: #### 4 96, 866, 899, 03280, 49739, 6399 #### [facility] [place] [address] Motorcycle Maker: Son Amaro MD Bilirubin [Mass/Vol] 0.3 mg/dL Normal 0.2-1.2 [facility] Comment on above: Performed By: #### 4 96, 866, 899, 51169, 34727, 6399 #### [facility] [place] [address] Motorcycle Maker: Son Amaro MD Calcium [Mass/Vol] 9.2 mg/dL Normal 8.6-10.4 [facility] Comment on above: Performed By: #### 4 96, 866, 899, 52274, 99768, 6399 #### [facility] [place] [address] Motorcycle Maker: Son Amaro MD Chloride [Moles/Vol] 105 mmol/L Normal 98-110 [facility] Comment on above: Performed By: #### 4 96, 866, 899, 20878, 21864, 6399 #### [facility] [place] [address] [place] [address] Motorcycle Maker: Son Amaro MD CO2 [Moles/Vol] 29 mmol/L Normal 20-32 [facility] Comment on above: Performed By: #### 4 96, 866, 899, 10037, 24140, 6399 #### [facility] [place] [address] Motorcycle Maker: Son Amaro MD Creatinine [Mass/Vol] 0.60 mg/dL Normal 0.50-1.[address] [facility] Comment on above: Performed By: #### 4 96, 866, 899, 42932, 28497, 6399 #### [facility] [place] [address] Motorcycle Maker: Son Amaro MD ELECTROLYTE BALANCE 6 mmol/L (calc) Low 7-17 [facility] Comment on above: Performed By: #### 4 96, 866, 899, 90830, 57351, 6399 #### [facility] [place] [address] Motorcycle Maker: Son Amaro MD GFR/1.73 sq M.predicted among non-blacks MDRD (S/P/Bld) [Vol rate/Area] 109 mL/min/{1.73_m2} Normal > OR = 60 [facility] Comment on above: Performed By: #### 4 96, 866, 899, 13831, 59524, 6399 #### [facility] [place] [address] Motorcycle Maker: Son Amaro MD Glucose [Mass/Vol] 88 mg/dL Normal 65-99 [facility] Comment on above: Result Comment: Fasting reference interval Performed By: #### 4 96, 866, 899, 61071, 07000, 6399 #### [facility] [place] [address] Motorcycle Maker: Son Amaro MD Potassium [Moles/Vol] 4.2 mmol/L Normal 3.5-5.[address] [facility] Comment on above: Performed By: #### 4 96, 866, 899, 42252, 29003, 6399 #### [facility] [place] [address] Motorcycle Maker: Son Amaro MD Protein [Mass/Vol] 6.8 g/dL Normal 6.1-8.1 [facility] Comment on above: Performed By: #### 4 96, 866, 899, 35081, 91399, 6399 #### [facility] [place] [address] Motorcycle Maker: Son Amaro MD Sodium [Moles/Vol] 140 mmol/L Normal 135-146 [facility] Comment on above: Performed By: #### 4 96, 866, 899, 65569, 05642, 6399 #### [facility] [place] [address] Motorcycle Maker: Son Amaro MD Urea nitrogen [Mass/Vol] 9 mg/dL Normal 7-25 [facility] Comment on above: Performed By: #### 4 96, 866, 899, 02278, 04787, 6399 #### [facility] [place] [address] Motorcycle Maker: Son Amaro MD HEMOGLOBIN A1con 05-24-2024 HEMOGLOBIN A1c Normal [facility] Comment on above: Performed By: #### 4 96, 866, 899, 16699, 46026, 6399 #### [facility] [place] [address] Motorcycle Maker: Son Amaro MD LIPID PANEL WITH REFLEX TO D IRECT LDLon 05-24-2024 Cholesterol [Mass/Vol] 191 mg/dL Normal <200 [facility] Comment on above: Order Comment: FASTI NG:YES FASTING: YES Performed By: #### 4 96, 866, 899, 11011, 98030, 6399 #### [facility] of [address] [place] [address] Motorcycle Maker: Son Amaro MD Cholesterol in HDL [Mass/Vol] 76 mg/dL Normal > OR = 50 [facility] Comment on above: Order Comment: FASTI NG:YES FASTING: YES Performed By: #### 4 96, 866, 899, 78390, 33814, 6399 #### [facility] [address], [address] [place] [address] Motorcycle Maker: Son Amaro MD Cholesterol in LDL [Mass/Vol] 85 mg/dL Normal [facility] Comment on above: Order Comment: FASTI NG:YES FASTING: YES Result Comment: Refe rence range: <100 Desirable range <100 mg/dL for primary prevention; <70 mg/dL for patients with CHD or diabetic patients with > or = 2 CHD risk factors. LDL-C is now calculated using the Kalia calculation, which is a validated novel method providing better accuracy than the Friedewald equation in the estimation of LDL-C. Moises SS et al. KALI. 2013;310(19): 7396-2811 (http://education.TechFaith.Global Sugar Art/faq/VSD093) Performed By: #### 4 96, 866, 899, 30260, 37981, 6399 #### [facility] [address], [address] [place] [address] Motorcycle Maker: Son Amaro MD Cholesterol.total/Cho lesterol in HDL [Mass ratio] 2.5 {ratio} Normal <5.0 [facility] Comment on above: Order Comment: FASTI NG:YES FASTING: YES Performed By: #### 4 96, 866, 899, 60406, 53768, 6399 #### [facility] [address], [address] [place] [address] Motorcycle Maker: Son Amaro MD NON HDL CHOLESTEROL 115 mg/dL (calc) Normal <130 [facility] Comment on above: Order Comment: FASTI NG:YES FASTING: YES Result Comment: For patients with diabetes plus 1 major ASCVD risk factor, treating to a non-HDL-C goal of <100 mg/dL (LDL-C of <70 mg/dL) is considered a therapeutic option. Performed By: #### 4 96, 866, 899, 65341, 74864, 6399 #### [facility] [place] [address] Motorcycle Maker: Son Amaro MD Triglyceride [Mass/Vol] 207 mg/dL High <150 [facility] Comment on above: Order Comment: FASTI NG:YES FASTING: YES Result Comment: If a non-fasting specimen was collected, consider repeat triglyceride testing on a fasting specimen if clinically indicated. hSon et al. J. of Clin. Lipidol. 2015;9:129-169. Performed By: #### 4 96, 866, 899, 79772, 04966, 6399 #### [facility] [place] [address] Motorcycle Maker: Son Amaro MD T4, FREEon 05-24-2024 Free T4 [Mass/Vol] 1.3 ng/dL Normal 0.8-1.8 [facility] Comment on above: Performed By: #### 4 96, 866, 899, 61744, 07749, 6399 #### [facility] [place] [address] Motorcycle Maker: Son Amaro MD TSHon 05-24-2024 TSH Qn 0.32 m[IU]/L Low [facility] Comment on above: Result Comment: Refe rence Range > or = 20 Years 0.40-4.50 Ranges First trimester 0.26-2.66 Second trimester 0.55-2.73 Third trimester 0.43-2.91 Performed By: #### 4 96, 866, 899, 00653, 79713, 6399 #### [facility] [place] [address] Motorcycle Maker: Son Amaro MD BILIRUBIN, DIRECTon 02-25-20 24 BILIRUBIN, DIRECT < Normal 0.0-0.4 [facility] Comment on above: Performed By: #### 4 [id number] #### [facility] [address] [place] [address] Ashkan Puente M.D. [id number] CBC WITH AUTO DIFFERENTIALon 02-25-2024 AUTO NRBC 0.0 % Normal [facility] Comment on above: Performed By: #### L [id number] #### [facility] [address] [place] [address] Ashkan Puente M.D. [id number] AUTO NRBC ABS COUNT 0.00 K/mcL Normal 0.00-0.00 [facility] Comment on above: Performed By: #### L [id number] #### [facility] [address] [place] [address] Ashkan Puente M.D. [id number] Erythrocyte distribution width (RBC) [Ratio] 13.2 % Normal 11.6-14.8 [facility] Comment on above: Performed By: #### L [id number] #### [facility] [address] [place] [address] Ashkan Puente M.D. [id number] Hematocrit (Bld) [Volume fraction] 37.9 % Normal 36.0-46.0 [facility] Comment on above: Performed By: #### L [id number] #### [facility] [address] [place] [address] Ashkan Puente M.D. [id number] Hemoglobin (Bld) [Mass/Vol] 12.9 g/dL Normal 12.0-16.0 [facility] Comment on above: Performed By: #### L [id number] #### [facility] [address] [place] [address] Ashkan Puente M.D. [id number] MCH (RBC) [Entitic mass] 29.6 pg Normal 26.0-34.0 [facility] Comment on above: Performed By: #### L [id number] #### [facility] [address] [place] [address] Ashkan Puente M.D. [id number] MCV (RBC) [Entitic vol] 86.9 fL Normal 80.0-100.0 [facility] Comment on above: Performed By: #### L [id number] ####[facility] [address] [place] [address] Ashkan Puente M.D. [id number] MEAN CORPUSCULAR HEMOGLOBIN CONC 34.0 g/dL Normal 31.0-37.0 [facility] Comment on above: Performed By: #### L [id number] ####[facility] [address] [place] [address] Ashkan Puente M.D. [id number] Platelet mean volume (Bld) [Entitic vol] 8.9 fL Low 9.4-12.4 [facility] Comment on above: Performed By: #### L [id number] ####[facility] [address] [place] [address] Ashkan Puente M.D. [id number] Platelets (Bld) [#/Vol] 436 10*3/uL High 150-400 [facility] Comment on above: Performed By: #### L [id number] ####[facility] [address] [place] [address] Ashkan Puente M.D. [id number] RBC (Bld) [#/Vol] 4.36 10*6/uL Normal 4.00-5.20 [facility] Comment on above: Performed By: #### L [id number] ####[facility] [address] [place] [address] Ashkan Puente M.D. [id number] WBC (Bld) [#/Vol] 11.52 10*3/uL High 4.50-11.00 [facility] Comment on above: Performed By: #### L [id number] ####[facility] [address] [place] [address] Ashkan Puente M.D. [id number] COMPREHENSIVE METABOLIC PANE Nima 02-25-2024 Albumin [Mass/Vol] 4.2 g/dL Normal 3.2-5.2 [facility] Comment on above: Order Comment: [facility] has implemented the eGFR calculation approach that does not have a coefficient for race that conforms to the NKF-ASN Task Force Recommendations. Performed By: #### 4 6126 #### [facility] [address] [place] [address] Ashkan Puente M.D. [id number] ALP [Catalytic activity/Vol] 96 U/L Normal 40-150 [facility] Comment on above: Order Comment: [facility] has implemented the eGFR calculation approach that does not have a coefficient for race that conforms to the NKF-ASN Task Force Recommendations. Performed By: #### 4 6126 #### [facility] [address] [place] [address] Ashkan Puente M.D. [id number] ALT [Catalytic activity/Vol] 14 U/L Normal 0-35 U/L [facility] Comment on above: Order Comment: [facility] has implemented the eGFR calculation approach that does not have a coefficient for race that conforms to the NKF-ASN Task Force Recommendations. Performed By: #### 4 [id number] #### LAB [address] [address] Ashkan Puente M.D. [id number] Anion gap [Moles/Vol] 17 mmol/L Normal 10-20 [facility] Comment on above: Order Comment: [facility] has implemented the eGFR calculation approach that does not have a coefficient for race that conforms to the NKF-ASN Task Force Recommendations. Performed By: #### 4 [id number] #### LAB [address] [address] Ashkan Puente M.D. [id number] AST [Catalytic activity/Vol] 21 U/L Normal 0-35 U/L [facility] Comment on above: Order Comment: [facility] has implemented the eGFR calculation approach that does not have a coefficient for race that conforms to the NKF-ASN Task Force Recommendations. Performed By: #### 4 [id number] #### LAB [address] [address] Ashkan Puente M.D. [id number] BILIRUBIN TOTAL < Normal 0.0-1.3 [facility] Comment on above: Order Comment: [facility] has implemented the eGFR calculation approach that does not have a coefficient for race that conforms to the NKF-ASN Task Force Recommendations. Performed By: #### 4 6126 #### LAB [address], [place] [address] Ashkan Puente M.D. [id number] Calcium [Mass/Vol] 8.8 mg/dL Normal 8.4-10.2 [facility] Comment on above: Order Comment: [facility] has implemented the eGFR calculation approach that does not have a coefficient for race that conforms to the NKF-ASN Task Force Recommendations. Performed By: #### 4 6126 #### LAB [address] [place], [place] [address] Ashkan Puente M.D. [id number] Chloride [Moles/Vol] 103 mmol/L Normal 98-108 [facility] Comment on above: Order Comment: [facility] has implemented the eGFR calculation approach that does not have a coefficient for race that conforms to the NKF-ASN Task Force Recommendations. Performed By: #### 4 6126 #### LAB [address] [place], [place] [address] Ashkan Puente M.D. [id number] Creatinine [Mass/Vol] 0.65 mg/dL Normal 0.40-1.10 [facility] Comment on above: Order Comment: [facility] has implemented the eGFR calculation approach that does not have a coefficient for race that conforms to the NKF-ASN Task Force Recommendations. Performed By: #### 4 6126 #### LAB [address] [place], [place] [address] Ashkan Puente M.D. [id number] EGFR 107 mL/min/1.73 m2 Normal >=60 [facility] Comment on above: Order Comment: [facility] has implemented the eGFR calculation approach that does not have a coefficient for race that conforms to the NKF-ASN Task Force Recommendations. Result Comment: Kerry mated GFR was calculated using the 2020 CKD-EPI creatinine equation. Performed By: #### 4 6126 #### LAB [address] [address] Ashkan Puente M.D. [id number] Glucose [Mass/Vol] 149 mg/dL High 65-99 [facility] Comment on above: Order Comment: [facility] has implemented the eGFR calculation approach that does not have a coefficient for race that conforms to the NKF-ASN Task Force Recommendations. Performed By: #### 4 6126 #### LAB [address] [address] Ashkan Puente M.D. [id number] HCO3 (Bld) [Moles/Vol] 21 mmol/L Normal 21-32 [facility] Comment on above: Order Comment: [facility] has implemented the eGFR calculation approach that does not have a coefficient for race that conforms to the NKF-ASN Task Force Recommendations. Performed By: #### 4 6126 #### LAB [address] [address] Ashkan Puente M.D. [id number] Potassium [Moles/Vol] 3.4 mmol/L Low 3.5-5.1 [facility] Comment on above: Order Comment: [facility] has implemented the eGFR calculation approach that does not have a coefficient for race that conforms to the NKF-ASN Task Force Recommendations. Performed By: #### 4 6126 #### LAB [address] [address] Ashkan Puente M.D. [id number] Protein [Mass/Vol] 6.7 g/dL Normal 6.0-8.0 [facility] Comment on above: Order Comment: [facility] has implemented the eGFR calculation approach that does not have a coefficient for race that conforms to the NKF-ASN Task Force Recommendations. Performed By: #### 4 6126 ####[facility] LAB [address] [address] Ashkan Puente M.D. [id number] Sodium [Moles/Vol] 138 mmol/L Normal 135-145 [facility] Comment on above: Order Comment: [facility] has implemented the eGFR calculation approach that does not have a coefficient for race that conforms to the NKF-ASN Task Force Recommendations. Performed By: #### 4 6126 #### LAB [address] [id number] Ashkan Puente M.D. [id number] Urea nitrogen [Mass/Vol] 16 mg/dL Normal 8-25 [facility] Comment on above: Order Comment: [facility] has implemented the eGFR calculation approach that does not have a coefficient for race that conforms to the NKF-ASN Task Force Recommendations. Performed By: #### 4 6126 #### LAB [address] [address] Ashkan Puente M.D. [id number] Urea nitrogen/Creatinine [Mass ratio] 24.6 mg/mg High 10.0-20.0 [facility] Comment on above: Order Comment: [facility] has implemented the eGFR calculation approach that does not have a coefficient for race that conforms to the NKF-ASN Task Force Recommendations. Performed By: #### 4 6126 #### LAB [address] [address] Ashkan Puente M.D. [id number] COVID-19/INFLUENZA A,B MOLEC ULARon 02-25-2024 SARS-CoV-2 (COVID-19) Ab IA Ql SARS-COV-2 (MIMI) Not Detected INFLUENZA A (MIMI) Not Detected INFLUENZA B (MIMI) Not Detected Normal Not Detected [facility] Comment on above: Performed By: #### L [id number] #### LAB [address] [id number] Ashkan Puente M.D. [id number] CT CHEST ABDOMEN PELVIS WITH OUT CONTRASTon 02-25-2024 CT CHEST ABDOMEN PELVIS WITHOUT CONTRAST EXAMINATION: CT CHEST ABDOMEN PELVIS WITHOUT CONTRAST HISTORY: F, 53 y/o , Sepsis COMPARISON: None TECHNIQUE: Computed tomography of the chest, abdomen and pelvis is performed in the axial projection from the lung apices to the pubic symphysis. Sagittal and coronal reconstructed images are performed. Dose reduction techniques were achieved by using automated exposure control and/or adjustment of mA and/or KVP according to patient size and/or use of iterative reconstruction technique. FINDINGS: Chest: The lungs are symmetrically inflated and clear. No pleural effusion or pneumothorax. Normal heart size. No pericardial effusion. No significant coronary artery calcifications. Evaluation of the solid abdominal organs is limited in the absence of intravenous contrast. Liver: The liver is normal. Gallbladder: There has been a cholecystectomy. Spleen: The spleen is normal. Pancreas: The pancreas is normal. Adrenal glands: The adrenal glands are normal bilaterally. Right kidney: The kidney is normal in size. There is no renal calculus or hydronephrosis. Left kidney: The kidney is normal in size. There is no renal calculus or hydronephrosis. Stomach: The stomach is normal. Small bowel: The small bowel is normal. Large bowel: The colon is normal. Appendix: The appendix is not visualized. Aorta: The aorta is normal IVC: The IVC is normal. Retroperitoneum: Normal retroperitoneum. Bladder: The bladder is normal. Pelvic organs: There has been a hysterectomy. Abdominal wall: There is a small fat containing umbilical hernia. Osseous structures: Normal bony structures. IMPRESSION: No bowel obstruction or acute renal pathology. The lungs are clear. Postoperative changes of cholecystectomy and hysterectomy. Workstation ID: [id number] Dictated by: SOSA HUTTON on ThuFeb 25, 2024 6:38:36 PM EST Transcribed by: SOSA HUTTON on ThuFeb 25, 2024 6:38:36 PM EST Finalized by: SOSA HUTTON on ThuFeb 25, 2024 6:38:36 PM EST Normal [facility] Comment on above: Order Comment: Injur y/Trauma or Illness?:Illness/Other How long have you had these symptoms (acute/chronic)?:Acute Reason for exam?:dizziness, headache, nausea vomiting hx of cva Type of Exam?:Initial Additional signs and symptoms?:. CT HEAD OR BRAIN WITHOUT CON TRASTon 02-25-2024 CT HEAD OR BRAIN WITHOUT CONTRAST EXAMINATION: CT HEAD OR BRAIN WITHOUT CONTRAST; 02/25/2024 5:39 pm CLINICAL HISTORY: dizziness, headache, nausea vomiting hx of cva. TECHNIQUE: Axial CT scans through the head were obtained without contrast administration. Dose reduction techniques were achieved by using: automated exposure control and/or adjustment of mA and/or kV according to patient size and/or use of iterative reconstruction technique. COMPARISON: 06/23/2023 FINDINGS: Mild periventricular and subcortical the posterior fossa appears normal. There is no edema or intracranial hemorrhage. The ventricular system is normal in size. The visualized orbits show no abnormal mass. The visualized paranasal sinuses show no air-fluid level. Middle ear cavities are clear. Mastoids are clear. IMPRESSION: No acute intracranial process. Mild old microvascular ischemic changes in the white matter of the cerebral hemispheres. Workstation ID: [id number] Dictated by: IVANIA SALVADOR on ThuFeb 25, 2024 6:08:38 PM EST Transcribed by: IVANIA SALVADOR on ThuFeb 25, 2024 6:08:38 PM EST Finalized by: IVANIA SALVADOR on Chary Feb 25, 2024 6:08:38 PM EST Normal [facility] Comment on above: Order Comment: Injur y/Trauma or Illness?:Illness/Other How long have you had these symptoms (acute/chronic)?:Acute Reason for exam?:dizziness, headache, nausea vomiting hx of cva Type of Exam?:Initial Additional signs and symptoms?:. ED Procedureon 02-25-2024 ED Procedure EKG 12-lead Date/Time: 02/25/2024 7:49 PM Performed by: Darshana Pace MD Authorized by: Darshana Pace MD Interpreted by ED attending physician Rhythm: sinus rhythm BPM: 116 ST Segments: ST segments normal T Waves: T waves normal Clinical impression: non-specific ECG Comments: EKG with sinus tachycardia rate of 116 beats per minutes LA interval 154 ms QRS duration 70 ms QTc [address] wave abnormalities. AUTHENTICATED BY DARSHANA PACE, ON 02/25/2024 19:50:15 Normal [facility] ED Prov Noteon 02-25-2024 ED Prov Note [facility] ED note NAME: Lima Jordan 53 y.o. CSN: [id number] PCP: Aury Mera MD History: Chief Complaint: Emesis and Shortness of Breath HPI: Patient is a 53-year-old female brought to the ED by EMS with complaints of nausea vomiting shortness of breath. Patient states she was at home talking to her children when she suddenly felt very hot all over felt pain in the back of her head started having multiple episodes of emesis with diffuse abdominal pain and shortness of breath. Patient states she has had CVAs and TIAs denies history of [place] PE pneumothorax denies any history of inflammatory bowel disease diverticulitis bowel obstruction denies history of pancreatitis reported history of cholecystectomy several years ago. PMHx: Past Medical History: Diagnosis Date Anemia Arthritis hips Back pain Bladder problem Endometriosis 1996 Family history of colon cancer GERD (gastroesophageal reflux disease) Hypertension Hypothyroid Low back pain 06/26/2011 Migraine 06/26/2011 Migraines Mixed hyperlipidemia 06/26/2011 Neuromuscular disorder ([facility]) 2014 Sciatica 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 Osteoporosis 1999 Osteoporosis Peptic ulceration Spina bifida occulta 06/26/2011 Stroke ([facility]) 1999 TIA (transient ischemic attack) Vitamin D deficiency 12/21/2013 PMSx: Past Surgical History: Procedure Laterality Date APPENDECTOMY 1994 BLADDER SUSPENSION TRANSOBTURATOR N/A 04/22/2023 Procedure: BLADDER SUSPENSION TRANSOBTURATOR; Surgeon: Sophia William MD; Location: Main OR; Service: Urology CARPAL TUNNEL RELEASE Right 11/2011 SECTION, CLASSIC 92 and 95 Two 1991 1994 CHOLECYSTECTOMY 04/2017 COLONOSCOPY 2016 COLONOSCOPY N/A 07/22/2021 Procedure: COLONOSCOPY WITH BIOPSY; Surgeon: Negro Landrum MD; Location: [facility] [place] OR; Service: Gastroenterology CYST REMOVAL 09/2016 back CYSTO 04/15/2023 EGD N/A 07/22/2021 Procedure: ESOPHAGOGASTRODUODENOSCOPY WITH BIOPSY; Surgeon: Negro Landrum MD; Location: [facility] [place] OR; Service: Gastroenterology HYSTERECTOMY REDUCTION MAMMAPLASTY Bilateral 02/2020 TONSILLECTOMY Bilateral 11/13/2020 Procedure: TONSILLECTOMY; Surgeon: David Hawthorne MD; Location: Main OR; Service: Otolaryngology TONSILLECTOMY FAM. Hx: Family History Problem Relation Age of Onset Heart disease Mother Hypertension Mother Heart attack Mother Stroke Mother Arthritis Mother It crippled her Lung cancer Mother Hypertension Father Heart disease Father Diabetes Father Stroke Father Alcohol abuse Father Hes been sober 1 yr now Colon cancer Maternal Grandmother COPD Paternal Grandmother Cancer Paternal Grandmother Colon cancer diagnosed at 52 at 58 COPD Paternal Grandfather Parkinson's Brother Alcohol abuse Brother Brother and father has always struggled with alcohol Breast cancer Neg Hx SOC. Hx: Social History Socioeconomic History Marital status: Tobacco Use Smoking status: Never Smokeless tobacco: Never Vaping Use Vaping status: Never Used Substance and Sexual Activity Alcohol use: Not Currently Comment: SOCIALLY - once everyy 3 to 4 months Drug use: Yes Comment: uses gummies rarely Sexual activity: Yes Partners: Male Comment: I'm to.same man 9 years Social Drivers of Health Financial Resource Strain: Low Risk (11/23/2023) Overall Financial Resource Strain (CARDIA) Difficulty of Paying Living Expenses: Not hard at all Food Insecurity: No Food Insecurity (11/23/2023) Hunger Vital Sign Worried About Running Out of Food in the Last Year: Never true Ran Out of Food in the Last Year: Never true Transportation Needs: No Transportation Needs (11/23/2023) PRAPARE - Transportation Lack of Transportation (Medical): No Lack of Transportation (Non-Medical): No Social Connections: Unknown (07/09/2021) Social Connection and Isolation Panel [NHANES] Frequency of Social Gatherings with Friends and Family: Three times a week MEDs: Previous Medications Medication Sig amitriptyline (ELAVIL) 25 MG tablet TAKE UP TO 4 TABLETS NIGHTLY FOR HEADACHES . amLODIPine (NORVASC) 10 MG tablet Take 1 (one) tablet (10 mg total) by mouth daily . BIOTIN ORAL Take 5,000 mcg by mouth once daily PM . COLLAGEN MISC 25 mL by Miscellaneous route daily . estradioL (ESTRACE) 2 MG tablet Take 1 (one) tablet (2 mg total) by mouth daily PM . fluticasone propionate (FLONASE) 50 mcg/actuation nasal spray 1 (one) spray by Each Nare route 2 (two) times a day as needed . glucosam/chond/hyalu/CF borate (MOVE FREE JOINT HEALTH ORAL) Take by mouth PM . levothyroxine (SYNTHROID, LEVOTHROID) 88 MCG tablet Take 1 (one) tablet (88 mcg total) by mouth once daily . lisinopriL (PRINIVIL,ZESTRIL) 40 MG tablet Take 1 (one) tablet (40 mg total) by mouth daily PM . solifenacin (VESICARE) 10 MG tablet Take 1 (one) (more content not included)... Normal [facility] HCG URINE, QUALITATIVEon Beta HCG ( test) Ql (U) Negative Normal Negative [facility] Comment on above: Order Comment: Negat tiago: Dilute urine specimens, as indicated by a low specific gravity (<1.010) may not contain representitive levels of hCG. If is still suspected, a serum test or repeat urine test using a first morning urine specimen should be considered. Performed By: #### 4 [id number] #### LAB [address] [address] Ashkan Puente M.D. [id number] MANUAL DIFFERENTIALon 2023 BASOPHILS - ABS (DIFF) 0.00 K/mcL Normal 0.00-0.30 [facility] Comment on above: Performed By: #### 4 [id number] #### LAB [address] [address] Ashkan Puente M.D. [id number] BASOPHILS - REL (DIFF) 0.0 % [facility] Comment on above: Performed By: #### 4 [id number] #### LAB [address] [address] Ashkan Puente M.D. [id number] EOSINOPHILS - ABS (DIFF) 0.23 K/mcL Normal 0.00-0.50 [facility] Comment on above: Performed By: #### 4 [id number] #### LAB [address] [address] Ashkan Puente M.D. [id number] EOSINOPHILS - REL (DIFF) 2.0 % [facility] Comment on above: Performed By: #### 4 [id number] #### LAB [address] [address] Ashkan Puente M.D. [id number] LYMPHOCYTE ATYPICAL - REL (DIFF) 5.0 % [facility] Comment on above: Performed By: #### 4 5435 #### LAB [address] [place] [address] Ashkan Puente M.D. [id number] LYMPHOCYTES - ABS (DIFF) 4.03 K/mcL High 0.90-4.00 [facility] Comment on above: Performed By: #### 4 [id number] #### LAB [address] [address] Ashkan Puente M.D. [id number] LYMPHOCYTES - REL (DIFF) 30.0 % Normal [facility] Comment on above: Performed By: #### 4 [id number] #### LAB [address] [address] Ashkan Puente M.D. [id number] MONOCYTES - ABS (DIFF) 0.69 K/mcL Normal 0.30-0.90 [facility] Comment on above: Performed By: #### 4 [id number] #### LAB [address] [address] Ashkan Puente M.D. [id number] MONOCYTES - REL (DIFF) 6.0 % Normal [facility] Comment on above: Performed By: #### 4 [id number] #### LAB [address] [address] Ashkan Puente M.D. [id number] NEUTROPHILS - ABS (DIFF) 6.57 K/mcL Normal 1.70-7.00 [facility] Comment on above: Performed By: #### 4 [id number] #### LAB [address] [address] Ashkan Puente M.D. [id number] NEUTROPHILS - REL (DIFF) 57.0 % Normal [facility] Comment on above: Performed By: #### 4 [id number] #### LAB [address] [address] Ashkan Puente M.D. [id number] MORPHOLOGYon 02-25-2024 PLATELET ESTIMATE Increased Abnormal Normal [facility] Comment on above: Performed By: #### L [id number] ####[facility] LAB [address] [address] Ashkan Puente M.D. [id number] RBC MORPH SCAN Normal Normal [facility] Comment on above: Result Comment: RBC Indices confirmed with manual peripheral smear review. Performed By: #### L [id number] ####[facility] LAB [address] [address] Ashkan Puente M.D. [id number] NT PRO BNPon 02-25-2024 NT-PRO BNP < Normal 0-300 [facility] Comment on above: Order Comment: Pride Study Cut-offsRule In:< /= 50 Years >450 pg/mL51 Years - 75 Years >900 pg/mL76 Years - 99 Years >1800 pg/mLRule Out:All patients <300 pg/mL Performed By: #### 4 7395 #### LAB [address] [address] Ashkan Puente M.D. [id number] TROPONINon 02-25-2024 BASELINE TROPONIN T NG/L < Normal <=14 [facility] Comment on above: Performed By: #### 4 6608 #### LAB [address] [id number] Ashkan Puente M.D. [id number] TROPONIN T INTERPRETATION Normal Normal [facility] Comment on above: Performed By: #### 4 6608 #### LAB [address] [address] Ashkan Puente M.D. [id number] URINALYSISon 02-25-2024 BACTERIA, URINE Many Abnormal None Seen [facility] Comment on above: Order Comment: Micro scopic examination is performed on all urinalysis samples and only positive findings are reported. The test for blood on the chemical analytic portion of urinalysis may also be positive due to hemoglobinuria and myoglobinuria and if red blood cells are present they are quantified by microscopic examination. Performed By: #### 4 6625 #### LAB [address] [address] Ashkan Puente M.D. [id number] BILIRUBIN, URINE Negative Normal Negative [facility] Comment on above: Order Comment: Micro scopic examination is performed on all urinalysis samples and only positive findings are reported. The test for blood on the chemical analytic portion of urinalysis may also be positive due to hemoglobinuria and myoglobinuria and if red blood cells are present they are quantified by microscopic examination. Performed By: #### 4 6625 #### LAB [address] [address] Ashkan Puente M.D. [id number] BLOOD, URINE Negative Normal Negative [facility] Comment on above: Order Comment: Micro scopic examination is performed on all urinalysis samples and only positive findings are reported. The test for blood on the chemical analytic portion of urinalysis may also be positive due to hemoglobinuria and myoglobinuria and if red blood cells are present they are quantified by microscopic examination. Performed By: #### 4 6625 #### LAB [address] [address] Ashkan Puente M.D. [id number] Clarity (U) Cloudy Abnormal Clear [facility] Comment on above: Order Comment: Micro scopic examination is performed on all urinalysis samples and only positive findings are reported. The test for blood on the chemical analytic portion of urinalysis may also be positive due to hemoglobinuria and myoglobinuria and if red blood cells are present they are quantified by microscopic examination. Performed By: #### 4 6625 #### LAB [address] [place] [address] Ashkan Puente M.D. [id number] Color (U) Yellow Normal Colorless, Yellow [facility] Comment on above: Order Comment: Micro scopic examination is performed on all urinalysis samples and only positive findings are reported. The test for blood on the chemical analytic portion of urinalysis may also be positive due to hemoglobinuria and myoglobinuria and if red blood cells are present they are quantified by microscopic examination. Performed By: #### 4 6625 #### LAB [address] [address] Ashkan Puente M.D. [id number] Glucose Ql (U) Negative Normal Negative, >=1000 [facility] Comment on above: Order Comment: Micro scopic examination is performed on all urinalysis samples and only positive findings are reported. The test for blood on the chemical analytic portion of urinalysis may also be positive due to hemoglobinuria and myoglobinuria and if red blood cells are present they are quantified by microscopic examination. Performed By: #### 4 6625 #### LAB [address] [address] Ashkan Puente M.D. [id number] Hyaline casts LM Ql (Urine sed) 0-2 Normal 0-2 [facility] Comment on above: Order Comment: Micro scopic examination is performed on all urinalysis samples and only positive findings are reported. The test for blood on the chemical analytic portion of urinalysis may also be positive due to hemoglobinuria and myoglobinuria and if red blood cells are present they are quantified by microscopic examination. Performed By: #### 4 6625 #### LAB [address] [address] Ashkan Puente M.D. [id number] Ketones Ql (U) Negative Normal Negative [facility] Comment on above: Order Comment: Micro scopic examination is performed on all urinalysis samples and only positive findings are reported. The test for blood on the chemical analytic portion of urinalysis may also be positive due to hemoglobinuria and myoglobinuria and if red blood cells are present they are quantified by microscopic examination. Performed By: #### 4 6625 #### LAB [address] [address] Ashkan Puente M.D. [id number] Leukocyte esterase Test strip Ql (U) Large Abnormal Negative [facility] Comment on above: Order Comment: Micro scopic examination is performed on all urinalysis samples and only positive findings are reported. The test for blood on the chemical analytic portion of urinalysis may also be positive due to hemoglobinuria and myoglobinuria and if red blood cells are present they are quantified by microscopic examination. Performed By: #### 4 6625 #### LAB [address] [address] Ashkan Puente M.D. [id number] MUCUS, URINE Few Abnormal None Seen, Rare [facility] Comment on above: Order Comment: Micro scopic examination is performed on all urinalysis samples and only positive findings are reported. The test for blood on the chemical analytic portion of urinalysis may also be positive due to hemoglobinuria and myoglobinuria and if red blood cells are present they are quantified by microscopic examination. Performed By: #### 4 6625 #### LAB [address] [address] Ashkan Puente M.D. [id number] NITRITE, URINE Negative Normal Negative [facility] Comment on above: Order Comment: Micro scopic examination is performed on all urinalysis samples and only positive findings are reported. The test for blood on the chemical analytic portion of urinalysis may also be positive due to hemoglobinuria and myoglobinuria and if red blood cells are present they are quantified by microscopic examination. Performed By: #### 4 [id number] #### LAB [address] [address] Ashkan Puente M.D. [id number] pH (U) 6.0 [pH] Normal 5.0-7.0 [facility] Comment on above: Order Comment: Micro scopic examination is performed on all urinalysis samples and only positive findings are reported. The test for blood on the chemical analytic portion of urinalysis may also be positive due to hemoglobinuria and myoglobinuria and if red blood cells are present they are quantified by microscopic examination. Performed By: #### 4 [id number] #### LAB [address] [place] [address] Ashkan Puente M.D. [id number] PROTEIN, URINE Negative Normal Negative [facility] Comment on above: Order Comment: Micro scopic examination is performed on all urinalysis samples and only positive findings are reported. The test for blood on the chemical analytic portion of urinalysis may also be positive due to hemoglobinuria and myoglobinuria and if red blood cells are present they are quantified by microscopic examination. Performed By: #### 4 [id number] #### LAB [address] [address] Ashkan Puente M.D. [id number] RBC LM.HPF (Urine sed) [#/Area] 8 /[HPF] High 0-3 [facility] Comment on above: Order Comment: Micro scopic examination is performed on all urinalysis samples and only positive findings are reported. The test for blood on the chemical analytic portion of urinalysis may also be positive due to hemoglobinuria and myoglobinuria and if red blood cells are present they are quantified by microscopic examination. Performed By: #### 4 [id number] #### LAB [address] [place], [place] [address] Ashkan Puente M.D. [id number] Specific gravity (U) [Rel density] 1.018 Normal 1.005-1.[address] [place] [address] Comment on above: Order Comment: Micro scopic examination is performed on all urinalysis samples and only positive findings are reported. The test for blood on the chemical analytic portion of urinalysis may also be positive due to hemoglobinuria and myoglobinuria and if red blood cells are present they are quantified by microscopic examination. Performed By: #### 4 [id number] #### LAB [address] [address] Ashkan Puente M.D. [id number] SQUAMOUS EPITHELIAL 18 /hpf High 0-[address] [place] [address] Comment on above: Order Comment: Micro scopic examination is performed on all urinalysis samples and only positive findings are reported. The test for blood on the chemical analytic portion of urinalysis may also be positive due to hemoglobinuria and myoglobinuria and if red blood cells are present they are quantified by microscopic examination. Performed By: #### 4 [id number] #### LAB [address] [address] Ashkan Puente M.D. [id number] UROBILINOGEN, URINE <2.0 Normal <2.0 [facility] Comment on above: Order Comment: Micro scopic examination is performed on all urinalysis samples and only positive findings are reported. The test for blood on the chemical analytic portion of urinalysis may also be positive due to hemoglobinuria and myoglobinuria and if red blood cells are present they are quantified by microscopic examination. Performed By: #### 4 [id number] #### LAB [address] [address] Ashkan Puente M.D. [id number] WBC LM.HPF (Urine sed) [#/Area] 12 /[HPF] High 0-[address] [place] [address] Comment on above: Order Comment: Micro scopic examination is performed on all urinalysis samples and only positive findings are reported. The test for blood on the chemical analytic portion of urinalysis may also be positive due to hemoglobinuria and myoglobinuria and if red blood cells are present they are quantified by microscopic examination. Performed By: #### 4 [id number] ####[facility] [address] [facility] [address] Ashkan Puente M.D. [id number] XR HIP LEFT 2-3 VIEWS (ROUTI NE)on 02-09-2024 XR HIP LEFT 2-3 VIEWS (ROUTINE) EXAMINATION: XR SACRUM AND COCCYX 2+ VIEWS; XR HIP LEFT 2-3 VIEWS (ROUTINE) 02/09/2024 8:04 am HISTORY: ORDERING SYSTEM PROVIDED HISTORY: severe left sacral pain in setting of previous frcature. RO acute fracture, TECHNOLOGIST PROVIDED HISTORY: Illness/Other Reason for exam: severe left sacral pain in setting of previous fracture. RO acute fracture Cancer History: u Surgery, RadiationHistory: u Encounter Type: Initial Additional signs and symptoms: . ORDERING SYSTEM PROVIDED DIAGNOSIS CODES: M53.3 Sacral back pain M53.3 Sacroiliac joint dysfunction of left side COMPARISON: Lumbar spine series April 08, 2021. TECHNIQUE: Three views of the sacrum and coccyx. Two views of the left hip. FINDINGS: Sacrum/coccyx: The sacrum and coccyx appear to be intact, with no displaced fracture or obvious aggressive bone lesion. SI joints appear to be generally symmetric and patent. Pelvic ring is intact. Left hip: Anatomic joint alignment with femoral head well seated in the acetabula. Joint space appears to be generally maintained. No acute fracture, radiographic evidence of AVN, or obvious aggressive bone lesion. Surrounding soft tissues appear grossly normal. IMPRESSION: No acute osseous abnormality of the left hip or sacrum/coccyx is identified. MRI may be beneficial for further evaluation, given the patient's history of severe pain. JAR/ads Workstation ID: [id number] Dictated by: ISAAC ANDREW on ThuFeb 10, 2024 10:10:58 AM EST Transcribed by: JYOTHI SUKHI on ThuFeb 10, 2024 10:28:31 AM EST Finalized by: ISAAC ANDREW on ThuFeb 10, 2024 3:35:32 PM EST Normal [facility] Comment on above: Order Comment: Injur y/Trauma or Illness?:Illness/Other How long have you had these symptoms (acute/chronic)?:Chronic Reason for exam?:left hip pain and positive BHUMIKA in setting of previous fall. RO fracture History of cancer?:u Surgeries, chemotherapy, or radiation?:u Type of Exam?:Initial Additional signs and symptoms?:. XR SACRUM AND COCCYX 2+ VIEW Son 02-09-2024 XR SACRUM AND COCCYX 2+ VIEWS EXAMINATION: XR SACRUM AND COCCYX 2+ VIEWS; XR HIP LEFT 2-3 VIEWS (ROUTINE) 02/09/2024 8:04 am HISTORY: ORDERING SYSTEM PROVIDED HISTORY: severe left sacral pain in setting of previous frcature. RO acute fracture, TECHNOLOGIST PROVIDED HISTORY: Illness/Other Reason for exam: severe left sacral pain in setting of previous fracture. RO acute fracture Cancer History: u Surgery, RadiationHistory: u Encounter Type: Initial Additional signs and symptoms: . ORDERING SYSTEM PROVIDED DIAGNOSIS CODES: M53.3 Sacral back pain M53.3 Sacroiliac joint dysfunction of left side COMPARISON: Lumbar spine series April 08, 2021. TECHNIQUE: Three views of the sacrum and coccyx. Two views of the left hip. FINDINGS: Sacrum/coccyx: The sacrum and coccyx appear to be intact, with no displaced fracture or obvious aggressive bone lesion. SI joints appear to be generally symmetric and patent. Pelvic ring is intact. Left hip: Anatomic joint alignment with femoral head well seated in the acetabula. Joint space appears to be generally maintained. No acute fracture, radiographic evidence of AVN, or obvious aggressive bone lesion. Surrounding soft tissues appear grossly normal. IMPRESSION: No acute osseous abnormality of the left hip or sacrum/coccyx is identified. MRI may be beneficial for further evaluation, given the patient's history of severe pain. JAR/ads Workstation ID: [id number] Dictated by: ISAAC ANDREW on ThuFeb 10, 2024 10:10:58 AM EST Transcribed by: JYOTHI JUNE on ThuFeb 10, 2024 10:28:31 AM EST Finalized by: ISAAC ANDREW on ThuFeb 10, 2024 3:35:32 PM EST Normal [facility] Comment on above: Order Comment: Injur y/Trauma or Illness?:Illness/Other How long have you had these symptoms (acute/chronic)?:Chronic Reason for exam?:severe left sacral pain in setting of previous fracture. RO acute fracture History of cancer?:u Surgeries, chemotherapy, or radiation?:u Type of Exam?:Initial Additional signs and symptoms?:. XR FOOT LEFT 3+ VIEWS (STAND BINDU)on 12-21-2023 XR FOOT LEFT 3+ VIEWS (STANDARD) X-rays 3 views left foot: There is an inferior and retro-calcaneal heel spur noted. No signs of stress fracture noted. Patient has a bony spur on the lateral side of the fifth metatarsal base. Dictated by: ROMY BILLY on ThuDec 21, 2023 11:58:55 AM EDT Transcribed by: ROMY BILYL on ThuDec 21, 2023 11:58:55 AM EDT Finalized by: ROMY BILLY on ThuDec 21, 2023 11:58:55 AM EDT Normal [facility] Comment on above: Order Comment: Injur y/Trauma or Illness?:Injury/Trauma How long have you had these symptoms (acute/chronic)?:Acute Reason for exam?:left heel pain and lateral side of foot has a bump Type of Exam?:Subsequent/Follow-up Mechanism of injury?:no known injury COMPREHENSIVE METABOLIC PANE Nima 11-23-2023 Albumin [Mass/Vol] 4.0 g/dL Normal 3.2-5.2 [facility] Comment on above: Order Comment: [facility] has implemented the eGFR calculation approach that does not have a coefficient for race that conforms to the NKF-ASN Task Force Recommendations. Performed By: #### 4 [id number] #### LAB [address], [place] [address] Ashkan Puente M.D. [id number] ALP [Catalytic activity/Vol] 94 U/L Normal 40-150 [facility] Comment on above: Order Comment: [facility] has implemented the eGFR calculation approach that does not have a coefficient for race that conforms to the NKF-ASN Task Force Recommendations. Performed By: #### 4 [id number] #### LAB [address], [place] [address] Ashkan Puente M.D. [id number] ALT [Catalytic activity/Vol] 10 U/L Normal 0-35 U/L [facility] Comment on above: Order Comment: [facility] has implemented the eGFR calculation approach that does not have a coefficient for race that conforms to the NKF-ASN Task Force Recommendations. Performed By: #### 4 [id number] #### LAB [address] [address] Ashkan Puente M.D. [id number] Anion gap [Moles/Vol] 14 mmol/L Normal 10-20 [facility] Comment on above: Order Comment: [facility] has implemented the eGFR calculation approach that does not have a coefficient for race that conforms to the NKF-ASN Task Force Recommendations. Performed By: #### 4 [id number] #### LAB [address] [address] Ashkan Puente M.D. [id number] AST [Catalytic activity/Vol] 24 U/L Normal 0-35 U/L [facility] Comment on above: Order Comment: [facility] has implemented the eGFR calculation approach that does not have a coefficient for race that conforms to the NKF-ASN Task Force Recommendations. Performed By: #### 4 [id number] #### LAB [address] [address] Ashkan Puente M.D. [id number] Bilirubin [Mass/Vol] 0.2 mg/dL Normal 0.0-1.3 [facility] Comment on above: Order Comment: [facility] has implemented the eGFR calculation approach that does not have a coefficient for race that conforms to the NKF-ASN Task Force Recommendations. Performed By: #### 4 [id number] #### LAB [address] [address] Ashkan Puente M.D. [id number] Calcium [Mass/Vol] 8.7 mg/dL Normal 8.4-10.2 [facility] Comment on above: Order Comment: [facility] has implemented the eGFR calculation approach that does not have a coefficient for race that conforms to the NKF-ASN Task Force Recommendations. Performed By: #### 4 [id number] #### LAB [address] [address] Ashkan Puente M.D. [id number] Chloride [Moles/Vol] 105 mmol/L Normal 98-108 [facility] Comment on above: Order Comment: [facility] has implemented the eGFR calculation approach that does not have a coefficient for race that conforms to the NKF-ASN Task Force Recommendations. Performed By: #### 4 6126 ####[facility] [address], [place] [address] Ashkan Puente M.D. [id number] Creatinine [Mass/Vol] 0.58 mg/dL Normal 0.40-1.10 [facility] Comment on above: Order Comment: [facility] has implemented the eGFR calculation approach that does not have a coefficient for race that conforms to the NKF-ASN Task Force Recommendations. Performed By: #### 4 6126 ####[facility] [address] [address] Ashkan Puente M.D. [id number] EGFR 110 mL/min/1.73 m2 Normal >=60 [facility] Comment on above: Order Comment: [facility] has implemented the eGFR calculation approach that does not have a coefficient for race that conforms to the NKF-ASN Task Force Recommendations. Result Comment: Kerry mated GFR was calculated using the 2020 CKD-EPI creatinine equation. Performed By: #### 4 [id number] #### LAB [address] [place] [id number] Ashkan Puente M.D. [id number] Glucose [Mass/Vol] 94 mg/dL Normal 65-99 [facility] Comment on above: Order Comment: [facility] has implemented the eGFR calculation approach that does not have a coefficient for race that conforms to the NKF-ASN Task Force Recommendations. Performed By: #### 4 6126 ####[facility] [address], [place] [address] Ashkan Puente M.D. [id number] HCO3 (Bld) [Moles/Vol] 25 mmol/L Normal 21-32 [facility] Comment on above: Order Comment: [facility] has implemented the eGFR calculation approach that does not have a coefficient for race that conforms to the NKF-ASN Task Force Recommendations. Performed By: #### 4 6126 #### LAB [address] [id number] Ashkan Puente M.D. [id number] Potassium [Moles/Vol] 3.9 mmol/L Normal 3.5-5.1 [facility] Comment on above: Order Comment: [facility] has implemented the eGFR calculation approach that does not have a coefficient for race that conforms to the NKF-ASN Task Force Recommendations. Performed By: #### 4 6126 #### LAB [address] [address] Ashkan Puente M.D. [id number] Protein [Mass/Vol] 6.8 g/dL Normal 6.0-8.0 [facility] Comment on above: Order Comment: [facility] has implemented the eGFR calculation approach that does not have a coefficient for race that conforms to the NKF-ASN Task Force Recommendations. Performed By: #### 4 6126 #### LAB [address] [address] Ashkan Puente M.D. [id number] Sodium [Moles/Vol] 140 mmol/L Normal 135-145 [facility] Comment on above: Order Comment: [facility] has implemented the eGFR calculation approach that does not have a coefficient for race that conforms to the NKF-ASN Task Force Recommendations. Performed By: #### 4 6126 #### LAB [address] [address] Ashkan Puente M.D. [id number] Urea nitrogen [Mass/Vol] 13 mg/dL Normal 8-25 [facility] Comment on above: Order Comment: [facility] has implemented the eGFR calculation approach that does not have a coefficient for race that conforms to the NKF-ASN Task Force Recommendations. Performed By: #### 4 6126 #### LAB [address] [address] Ashkan Puente M.D. [id number] Urea nitrogen/Creatinine [Mass ratio] 22.4 mg/mg High 10.0-20.0 [facility] Comment on above: Order Comment: [facility] has implemented the eGFR calculation approach that does not have a coefficient for race that conforms to the NKF-ASN Task Force Recommendations. Performed By: #### 4 6126 ####[facility] [address] [place], [place] [address] Ashkan Puente M.D. [id number] Comprehensive metabolic 2000 panelon 11-23-2023 Albumin [Mass/Vol] 4.0 g/dL 3.2 - 5.2 g/dL [facility] ALP [Catalytic activity/Vol] 94 U/L 40 - 150 U/L [facility] ALT [Catalytic activity/Vol] 10 U/L 0-35 U/L [facility] Anion gap [Moles/Vol] 14 mmol/L 10 - 2 0 mmol/L [facility] AST [Catalytic activity/Vol] 24 U/L 0-35 U/L [facility] Bilirubin [Mass/Vol] 0.2 mg/dL 0.0 - 1 .3 mg/dL [facility] Calcium [Mass/Vol] 8.7 mg/dL 8.4 - 10. 2 mg/dL [facility] Chloride [Moles/Vol] 105 mmol/L 98 - 10 8 mmol/L [facility] Creatinine [Mass/Vol] 0.58 mg/dL 0.40 - 1.10 mg/dL [facility] GFR/1.73 sq M.predicted CKD-EPI (S/P/Bld) [Vol rate/Area] 110 - PINF [facility] Comment on above: Estimated GFR was ca lculated using the 2020 CKD-EPI creatinine equation. Glucose [Mass/Vol] 94 mg/dL 65 - 99 mg/dL [facility] HCO3 [Moles/Vol] 25 mmol/L 21 - 32 mmol/L [facility] Interpretation and review of laboratory results Abnormal [facility] Potassium [Moles/Vol] 3.9 mmol/L 3.5 - 5.1 mmol/L [facility] Protein [Mass/Vol] 6.8 g/dL 6.0 - 8.0 g/dL [facility] Sodium [Moles/Vol] 140 mmol/L 135 - 145 mmol/L [facility] Urea nitrogen [Mass/Vol] 13 mg/dL 8 - 25 mg/dL [facility] Urea nitrogen/Creatinine [Mass ratio] 22.4 mg/mg High 10.0 - 20.0 [facility] has implemented the eGFR calculation approach that does not have a coefficient for race that conforms to the NKF-ASN Task Force Recommendations. [facility] LIPID PANELon 11-23-2023 Cholesterol [Mass/Vol] 198 mg/dL Normal 100-199 [facility] Comment on above: Performed By: #### 4 [id number] ####[facility] [address] [address] Ashkan Puente M.D. [id number] Cholesterol in HDL [Mass/Vol] 67 mg/dL Normal 40-59 [facility] Comment on above: Performed By: #### 4 [id number] ####[facility] [address] [address] Ashkan Puente M.D. [id number] Cholesterol.total/Cho lesterol in HDL [Mass ratio] 3.0 {ratio} Normal [facility] Comment on above: Result Comment: Fema le Cholesterol/HDL Ratio: Average risk: 4.4 1/2 average risk: 3.3 2 x average risk: 7.1 Performed By: #### 4 [id number] #### LAB [address] [address] Ashkan Puente M.D. [id number] LDL CHOLESTEROL CALCULATED 105 mg/dL Normal 10-130 [facility] Comment on above: Result Comment: [facility] [employer] Cholesterol Education Program Guidelines: LDL Cholesterol Optimal: <100 mg/dL Near Optimal/above Optimal: 100-129 mg/dL Borderline High: 130-159 mg/dL High: 160-189 mg/dL Very High: greater than or equal to 190 mg/dL Performed By: #### 4 [id number] ####[facility] [address] [address] Ashkan Puente M.D. [id number] NON HDL CHOL 131 mg/dL Normal [facility] Comment on above: Result Comment: [facility] [employer] Cholesterol Education Program Guidelines: NON HDL Cholesterol Desirable: <130 mg/dL Borderline High: 130-159 mg/dL High: 160-189 mg/dL Very High: > or = 190 mg/dL Performed By: #### 4 [id number] ####[facility] [address] [address] Ashkan Puente M.D. [id number] Triglyceride [Mass/Vol] 129 mg/dL Normal 30-150 [facility] Comment on above: Performed By: #### 4 [id number] #### LAB [address], [place] [address] Ashkan Puente M.D. [id number] Lipid 1996 panelon Cholesterol [Mass/Vol] 198 mg/dL 100 - 199 mg/dL [facility] Cholesterol in HDL [Mass/Vol] 67 mg/dL 40 - 59 mg/dL [facility] Cholesterol in LDL [Mass/Vol] 105 mg/dL 10 - 130 mg/dL [facility] Comment on above: National Cholesterol Education Program Guidelines: LDL Cholesterol Optimal: <100 mg/dL Near Optimal/above Optimal: 100-129 mg/dL Borderline High: 130-159 mg/dL High: 160-189 mg/dL Very High: greater than or equal to 190 mg/dL Cholesterol non HDL [Mass/Vol] 131 mg/dL [facility] Comment on above: National Cholesterol Education Program Guidelines: NON HDL Cholesterol Desirable: <130 mg/dL Borderline High: 130-159 mg/dL High: 160-189 mg/dL Very High: > or = 190 mg/dL Cholesterol.total/Cho lesterol in HDL [Mass ratio] 3.0 {ratio} ratio [facility] Comment on above: Female Cholesterol/H DL Ratio: Average risk: 4.4 1/2 average risk: 3.3 2 x average risk: 7.1 Triglyceride [Mass/Vol] 129 mg/dL 30 - 150 mg/dL [facility] No Panel Informationon 11-22 [facility] Interpretation and review of laboratory results Normal [facility] T4, FREEon 11-23-2023 Free T4 [Mass/Vol] 1.1 ng/dL Normal 0.7-1.7 [facility] Comment on above: Performed By: #### 4 [id number] #### LAB [address], [place] [address] Ashkan Puente M.D. [id number] T4, Freeon 11-23-2023 Free T4 [Mass/Vol] 1.1 ng/dL 0.7 - 1.7 ng/dL [facility] TSHon 11-23-2023 TSH Qn 0.73 m[IU]/L Normal 0.27-4.20 [facility] Comment on above: Performed By: #### 4 [id number] ####[facility] [address] [place], [place] [address] Ashkan Puente M.D. [id number] TSH DL <= 0.005 mIU/L Qnon 0 11-23-2023 TSH Qn 0.73 m[IU]/L [facility] MR LUMBAR SPINE WITHOUT CONT [facility] 09-24-2023 MR LUMBAR SPINE WITHOUT CONTRAST EXAMINATION: MR LUMBAR SPINE WITHOUT CONTRAST HISTORY: ORDERING SYSTEM PROVIDED HISTORY: Low back pain, symptoms persist with > 6 wks treatment, TECHNOLOGIST PROVIDED HISTORY: Illness/Other Reason for exam: low back pain radiating into bilateral legs for one year: no known injury: no hx of cancer: Encounter Type: Unknown Additional signs and symptoms: n ORDERING SYSTEM PROVIDED DIAGNOSIS CODES: Q76.0 Spina bifida occulta M54.50 Low back pain, unspecified back pain laterality, unspecified chronicity, unspecified whether sciatica present COMPARISON: MRI lumbar spine, 08/14/2017. TECHNIQUE: Multiplanar, multisequence MRI imaging of the lumbar spine without contrast. FINDINGS: Alignment normal. There is no spondylolysis appreciated. No spondylolisthesis. No abnormal signal in the bone marrow spaces. No compression fractures. L5-S1, moderate facet arthropathy on the right and mild facet arthropathy on the left. This is stable. Mild disc desiccation and mild disc space narrowing along the posterior margin of the disc space stable. No spinal canal stenosis. Disc space narrowing results in mild foraminal narrowing bilaterally. This level is stable. L4-5, mild disc desiccation. No spinal stenosis. Facet joints unremarkable. No significant neural foraminal narrowing. L3-4, mild disc desiccation. No spinal stenosis. No foraminal narrowing. L2-3, no significant degenerative changes. No spinal stenosis or foraminal narrowing. L1-2, no significant degenerative changes. No spinal stenosis or foraminal narrowing. No abnormal signal in the conus medullaris. No paraspinal mass. IMPRESSION: 1. Stable MRI of the lumbar spine. 2. Mild degenerative disc disease at L3-4 through L5-S1. There is moderate facet arthropathy on the right at L5-S1. 3. No spinal canal stenosis. There is mild foraminal narrowing at L5-S1. [facility] Workstation ID: [id number] Dictated by: ALISA AVILA on ThuSep 25, 2023 10:09:10 AM EDT Transcribed by: SHERWIN MERCEDES on ThuSep 25, 2023 10:24:21 AM EDT Finalized by: ALISA AVILA on ThuSep 25, 2023 12:51:29 PM EDT [facility] Comment on above: Order Comment: Injur y/Trauma or Illness?:Illness/Other How long have you had these symptoms (acute/chronic)?:Unknown Reason for exam?:low back pain radiating into bilateral legs for one year: no known injury: no hx of cancer: Type of Exam?:Unknown Additional signs and symptoms?:n MM SCREENING JULIO BILATERALo n 07-20-2023 MM SCREENING JULIO BILATERAL EXAMINATION: MM SCREENING JULIO BILATERAL CLINICAL INFORMATION: Encounter for screening for malignant neoplasm of breast, unspecified screening modality. COMPARISON: 05/22/2022. 05/07/2021. 05/02/2019. TECHNIQUE: CC and MLO views of the left and right breast were obtained using tomosynthesis. Computer-aided detection was utilized in the interpretation of this exam. FINDINGS: BREAST COMPOSITION: Scattered fibroglandular densities. Scattered benign-appearing calcifications are present. No dominant mass, suspicious microcalcifications or architectural distortion. IMPRESSION: Benign findings. BIRADS: CATEGORY 2 Benign, no evidence of malignancy. Normal interval follow-up is recommended in 12 months. OVERALL ASSESSMENT - BENIGN A letter of notification will be sent to the patient regarding the results. [facility], along with the National [employer], the [employer], and [facility], recommend annual screening mammograms for women age 40 and older. [facility] Workstation ID: [id number] Dictated by: HARSH ADAM on ThuJuly 20, 2023 3:15:11 PM EDT Transcribed by: SHERWIN MERCEDES on ThuJuly 20, 2023 4:00:06 PM EDT Finalized by: HARSH ADAM on ThuJuly 20, 2023 4:02:54 PM EDT [facility] CT HEAD OR BRAIN WITHOUT CON TRASTon 06-23-2023 CT HEAD OR BRAIN WITHOUT CONTRAST EXAMINATION: CT HEAD OR BRAIN WITHOUT CONTRAST HISTORY: Memory loss; Transient ischemic attack (TIA) Dx: R41.89 (Cognitive change) [facility]-HTN Injury/Trauma or Illness?:Illness/Other TECHNIQUE: Dose reduction techniques were achieved by using automated exposure control and/or adjustment of mA and/or kV according to patient size and/or use of iterative reconstruction technique. CT scan of brain reconstructed in the axial, coronal and sagittal plane. COMPARISON: CT scan performed 12/30/2010. FINDINGS: Normal exam. There is no evidence of mass, mass effect, infarct or hemorrhage. The ventricles, sulci and basilar cisterns are normal for the patient's age. The cerebral hemispheres, brainstem and cerebellar hemispheres are normal. The gutierrez-white interface is intact. The osseous structures are normal. IMPRESSION: 1. Normal examination Workstation ID: [id number] Dictated by: Riya CORTEZ on ThuJun 23, 2023 2:47:17 PM EDT Transcribed by: Riya CORTEZ on ThuJun 23, 2023 2:47:17 PM EDT Finalized by: Riya CORTEZ on ThuJun 23, 2023 2:47:17 PM EDT Normal [facility] Comment on above: Order Comment: Injur y/Trauma or Illness?:Illness/Other How long have you had these symptoms (acute/chronic)?:Acute Reason for exam?:memory loss, TIA suspected Oct 2022 Type of Exam?:Initial Additional signs and symptoms?:n Comprehensive metabolic 2000 panelon 05-21-2023 Albumin [Mass/Vol] 3.9 g/dL 3.2 - 5.2 g/dL [facility] ALP [Catalytic activity/Vol] 76 U/L 40 - 150 U/L [facility] ALT [Catalytic activity/Vol] 14 U/L 0-35 U/L [facility] Anion gap [Moles/Vol] 13 mmol/L 10 - 2 0 mmol/L [facility] AST [Catalytic activity/Vol] 22 U/L 0-35 U/L [facility] Bilirubin [Mass/Vol] mg/dL 0.0 - 1 .3 mg/dL [facility] Calcium [Mass/Vol] 8.6 mg/dL 8.4 - 10. 2 mg/dL [facility] Chloride [Moles/Vol] 105 mmol/L 98 - 10 8 mmol/L [facility] Creatinine [Mass/Vol] 0.56 mg/dL 0.40 - 1.10 mg/dL [facility] GFR/1.73 sq M.predicted CKD-EPI (S/P/Bld) [Vol rate/Area] 111 - PINF [facility] Comment on above: Estimated GFR was ca lculated using the 2020 CKD-EPI creatinine equation. Glucose [Mass/Vol] 86 mg/dL 65 - 99 mg/dL [facility] HCO3 [Moles/Vol] 26 mmol/L 21 - 32 mmol/L [facility] Potassium [Moles/Vol] 4.2 mmol/L 3.5 - 5.1 mmol/L [facility] Protein [Mass/Vol] 6.2 g/dL 6.0 - 8.0 g/dL [facility] Sodium [Moles/Vol] 140 mmol/L 135 - 145 mmol/L [facility] Urea nitrogen [Mass/Vol] 10 mg/dL 8 - 25 mg/dL [facility] Urea nitrogen/Creatinine [Mass ratio] 17.9 mg/mg 10.0 - 20.0 [facility] has implemented the eGFR calculation approach that does not have a coefficient for race that conforms to the NKF-ASN Task Force Recommendations. [facility] Drugs of Abuse Screen, Urine Ordered By: Devika Frausto on 05-21-2023 Amphetamines Ql (U) Not detected None Detected [facility] Comment on above: Urine Amphetamine Cu toff: < 1000 ng/mL = None Detected Barbiturates Screen Ql (U) Not detected None Detected [facility] Comment on above: Urine Barbiturates C utoff: < 200 ng/mL = None Detected Benzodiazepines Ql (U) Not detected None Detected [facility] Comment on above: Urine Benzodiazepine Cutoff: < 200 ng/mL = None Detected Buprenorphine Ql (U) Not detected None Detected [facility] Comment on above: Urine Buprenorphine Cutoff: < 5 ng/mL = None Detected Cannabinoids Screen Ql (U) Positive Abnormal None Detected [facility] Comment on above: Urine Cannabinoids C utoff: < 50 ng/mL = None Detected Cocaine Ql (U) Not detected None Detected [facility] Comment on above: Urine Cocaine Cutoff : < 300 ng/mL = None Detected fentaNYL+Norfentanyl Screen Ql (U) Not detected None Detected [facility] Comment on above: Urine Fentanyl Cutof f: < 1 ng/mL = None Detected Interpretation and review of laboratory results Abnormal [facility] Methadone Screen Ql (U) Not detected None Detected [facility] Comment on above: Urine Methadone Cuto ff: < 300 ng/mL = None Detected Opiates Screen Ql (U) Not detected None Detected [facility] Comment on above: Urine Opiates Cutoff : < 300 ng/mL = None Detected oxyCODONE Ql (U) Not detected None Detected [facility] Comment on above: Urine Oxycodone Cuto ff: < 100 ng/mL = None Detected Screen results shoul d be used for treatment purposes only. Specimen will be kept for 2 weeks, if the sample is adequate. Confirmation testing can be initiated by calling the lab within 2 weeks. [facility] HbA1c (Bld) [Mass fraction]o n 05-21-2023 Average glucose Estimated from glycated hemoglobin (Bld) [Mass/Vol] 105 mg/dL 74 - 114 mg/dL [facility] Interpretation and review of laboratory results Normal [facility] Hemoglobin A1con 05-21-2023 HbA1c (Bld) [Mass fraction] 5.3 % 4.2 - 5.6 % [facility] Lipid 1996 panelon Cholesterol [Mass/Vol] 171 mg/dL 100 - 199 mg/dL [facility] Cholesterol in HDL [Mass/Vol] 59 mg/dL 40 - 59 mg/dL [facility] Cholesterol in LDL [Mass/Vol] 81 mg/dL 10 - 130 mg/dL [facility] Comment on above: National Cholesterol Education Program Guidelines: LDL Cholesterol Optimal: <100 mg/dL Near Optimal/above Optimal: 100-129 mg/dL Borderline High: 130-159 mg/dL High: 160-189 mg/dL Very High: greater than or equal to 190 mg/dL Cholesterol non HDL [Mass/Vol] 112 mg/dL [facility] Comment on above: National Cholesterol Education Program Guidelines: NON HDL Cholesterol Desirable: <130 mg/dL Borderline High: 130-159 mg/dL High: 160-189 mg/dL Very High: > or = 190 mg/dL Cholesterol.total/Cho lesterol in HDL [Mass ratio] 2.9 {ratio} ratio [facility] Comment on above: Female Cholesterol/H DL Ratio: Average risk: 4.4 1/2 average risk: 3.3 2 x average risk: 7.1 Interpretation and review of laboratory results Abnormal [facility] Triglyceride [Mass/Vol] 157 mg/dL High 30 - 150 mg/dL [facility] No Panel Informationon 05-20 Interpretation and review of laboratory results Normal [facility] T4, Freeon 05-21-2023 Free T4 [Mass/Vol] 1.1 ng/dL 0.7 - 1.7 ng/dL [facility] TSH DL <= 0.005 mIU/L Qnon 0 05-21-2023 TSH Qn 0.35 m[IU]/L [facility] No Panel Informationon 04-15 Sophia William MD 04/15/2023 9:06 AM Cystoscopy Date/Time: 04/15/2023 9:04 AM Performed by: Sophia William MD Authorized by: Sophia William MD Written consent: obtained Consent given by: patient Relevant documents: Relevent documents present and verified. Medical history, medications, allergies and physical assessment reviewed/completed Test results: test results available and properly labeled Site: site marked by physician or proceduralist who is privileged and credentialed to perform procedure Relevant imaging studies available and labeled: Yes Patient identity confirmed: verified patient name and Time out: Immediately prior to procedure a time out was called to verify the correct patient, procedure, equipment, technical support associate and site/side marked as required. Physician or proceduralist has discussed critical or nonroutine steps, procedure duration and anticipated blood loss: Yes All team members agree to proceed: Yes Preparation: Patient was prepped and draped in usual sterile fashion Local anesthesia used?: Yes Anesthesia: Local infiltration Local anesthetic: Lidocaine/prilocaine emulsionPatient sedated: no Patient tolerance: Patient tolerated the procedure well with no immediate complications Procedure details: The patient was placed on the table in the frog-leg position. She was prepped in the usual sterile fashion and lidocaine jelly was administered per urethra. Flexible scope was inserted into the urethra. There was some mild narrowness of the meatus but the scope was able to pass through. There was also only moderate coaptation of the urethra. The scope then entered the bladder. The bladder was smooth and free of any tumors, stones, or lesions. The ureteral orifices appeared unremarkable. Bladder neck was unremarkable. The scope was then removed and this concluded the procedure. 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 She also does have some overactive bladder with urgency and occasional urge incontinence therefore we will give her a trial of Vesicare for this. I discussed this in detail with her. [facility] Measure post void residualOr dered By: Misty Wang on 01-13-2023 Interpretation and review of laboratory results Normal [facility] Measure Post Void Residual 0 [facility] POC Urinalysis Dipstick, Aut oOrdered By: Kaushik Blanton on 01-13-2023 Bilirubin Ql (U) Negative Negative [facility] Glucose Ql (U) Negative Normal, Negative mg/dL [facility] Hemoglobin Ql (U) Negative Negative [facility] Interpretation and review of laboratory results Abnormal [facility] Ketones Ql (U) Negative Negative mg/dL [facility] Leukocyte esterase Test strip Ql (U) Negative Negative [facility] Nitrite Ql (U) Negative Negative [facility] pH (U) 6.0 [pH] 5.0 - 7.0 [facility] Protein Ql (U) Negative Negative mg/dL [facility] Specific gravity (U) [Rel density] 1.030 Abnormal 1.005 - 1.025 [facility] Urobilinogen Qn (U) 0.2 mg/dL <2.0, 0. 2, Normal, Negative, 1.0, 2.0, <1.0 [facility] - Chemistry and C hemistry - challengeon 11-13-2022 Ferritin [Mass/Vol] 11 ng/mL Low 13 - 150 ng/mL [facility] Iron [Mass/Vol] 60 ug/dL [facility] Iron binding capacity [Mass/Vol] 397 [facility] Iron saturation [Mass fraction] 15 % Low 20 - 50 % [facility] No Panel Informationon 11-13 Interpretation and review of laboratory results Abnormal [facility] B12/Folateon 05-15-2022 Cobalamin (Vitamin B12) [Mass/Vol] 552 pg/mL 193 - 986 pg/mL [facility] Folate [Mass/Vol] 11.6 ng/mL 3.1 - 17.5 ng/mL [facility] Comment on above: Deficient <2.2 Borderline 2.2 - 3.0 Excessive >17.5 Interpretation and review of laboratory results Normal [facility] ESR Westergren method (Bld) [Velocity]on 05-15-2022 ESR (Bld) [Velocity] 14 mm/h [facility] Interpretation and review of laboratory results Normal [facility] Iron Study with Ferritinon 0 05-15-2022 Ferritin [Mass/Vol] 6 ng/mL Low 13 - 150 ng/mL [facility] Interpretation and review of laboratory results Abnormal [facility] Iron [Mass/Vol] 23 [facility] [Mass/Vol] 430 [facility] Iron saturation [Mass fraction] 5 % Low 20 - 50 % [facility] No Panel Informationon 05-15 [facility] Interpretation and review of laboratory results Normal [facility] T4, Freeon 05-15-2022 Free T4 [Mass/Vol] 1.0 ng/dL 0.7 - 1.7 ng/dL [facility] TSH DL <= 0.005 mIU/L Qnon 0 05-15-2022 TSH Qn 1.59 m[IU]/L [facility] B12/Folateon 07-09-2021 Cobalamin (Vitamin B12) [Mass/Vol] 273 pg/mL 193 - 986 pg/mL [facility] Folate [Mass/Vol] 19.1 ng/mL High 3.1 - 17.5 ng/mL [facility] Comment on above: Deficient <2.2 Borderline 2.2 - 3.0 Excessive >17.5 Interpretation and review of laboratory results Abnormal [facility] Comprehensive metabolic 2000 panelon 07-09-2021 Albumin [Mass/Vol] 3.3 g/dL 3.2 - 5.2 g/dL [facility] ALP [Catalytic activity/Vol] 90 U/L 40 - 150 U/L [facility] ALT [Catalytic activity/Vol] 23 U/L 14 - 65 U/L [facility] Anion gap [Moles/Vol] 12 mmol/L 10 - 2 0 mmol/L [facility] AST [Catalytic activity/Vol] 17 U/L 0 - 45 U/L [facility] Bilirubin [Mass/Vol] 0.2 mg/dL 0.0 - 1 .3 mg/dL [facility] Calcium [Mass/Vol] 8.8 mg/dL 8.4 - 10. 2 mg/dL [facility] Chloride [Moles/Vol] 107 mmol/L 98 - 10 8 mmol/L [facility] Creatinine [Mass/Vol] 0.60 mg/dL 0.40 - 1.10 [facility] GFR/1.73 sq M.predicted CKD-EPI (S/P/Bld) [Vol rate/Area] 108 >=60 mL/min/1.7 3 m2 [facility] Glucose [Mass/Vol] 74 mg/dL 65 - 99 mg/dL [facility] HCO3 [Moles/Vol] 26 mmol/L 21 - 32 mmol/L [facility] Potassium [Moles/Vol] 3.8 mmol/L 3.5 - 5.1 mmol/L [facility] Protein [Mass/Vol] 6.8 g/dL 6.0 - 8.0 g/dL [facility] Sodium [Moles/Vol] 141 mmol/L 135 - 145 mmol/L [facility] Urea nitrogen [Mass/Vol] 10 mg/dL 8 - 25 mg/dL [facility] Urea nitrogen/Creatinine [Mass ratio] 16.7 mg/mg [facility] The eGFR should be u sed for monitoring renal function only and not for medication dosing. [facility] HbA1c (Bld) [Mass fraction]O rdered By: Ellie Garnett on 07-09-2021 Average glucose Estimated from glycated hemoglobin (Bld) [Mass/Vol] 117 mg/dL High 68 - 114 mg/dL [facility] Interpretation and review of laboratory results Abnormal [facility] Normal: 4.0% - 5.6% Increased risk for diabetes: 5.7% - 6.4% Diabetes: >= 6.5% Pediatrics: No established reference range Estimated average glucose: 68-114 mg/dL [facility] Hemoglobin [id number] By: [facility] Garnett on 07-09-2021 HbA1c (Bld) [Mass fraction] 5.7 % High 4.0 - 5.6 % [facility] Lipid 1996 panelon 2 Cholesterol [Mass/Vol] 219 mg/dL High 100 - 199 mg/dL [facility] Comment on above: National Cholesterol Education Program Guidelines: Cholesterol Desirable: <200 mg/dL Borderline High: 200-239 mg/dL High: greater than or equal to 240 mg/dL Cholesterol in HDL [Mass/Vol] 81 mg/dL 40 - 59 [facility] Comment on above: National Cholesterol Education Program Guidelines: HDL Cholesterol Low: <40 mg/dL Near Optimal: 40-59 mg/dL High: greater than or equal to 60 mg/dL Cholesterol in LDL [Mass/Vol] 115 mg/dL 10 - 130 mg/dL [facility] Comment on above: National Cholesterol Education Program Guidelines: LDL Cholesterol Optimal: <100 mg/dL Near Optimal/above Optimal: 100-129 mg/dL Borderline High: 130-159 mg/dL High: 160-189 mg/dL Very High: greater than or equal to 190 mg/dL Cholesterol non HDL [Mass/Vol] 138 mg/dL [facility] Comment on above: National Cholesterol Education Program Guidelines: NON HDL Cholesterol Desirable: <130 mg/dL Borderline High: 130-159 mg/dL High: 160-189 mg/dL Very High: > or = 190 mg/dL Cholesterol.total/Cho lesterol in HDL [Mass ratio] 2.7 {ratio} ratio [facility] Comment on above: Female Cholesterol/H DL Ratio: Average risk: 4.4 1/2 average risk: 3.3 2 x average risk: 7.1 Interpretation and review of laboratory results Abnormal [facility] Triglyceride [Mass/Vol] 117 mg/dL 30 - 150 mg/dL [facility] Comment on above: National Cholesterol Education Program Guidelines: Triglyceride Normal: <150 mg/dL Borderline High: 150-199 mg/dL High: 200-499 mg/dL Very High: greater than or equal to 500 mg/dL No Panel Informationon 07-09 Interpretation and review of laboratory results Normal [facility] T4, Freeon 07-09-2021 Free T4 [Mass/Vol] 1.1 ng/dL 0.7 - 1.7 ng/dL [facility] TSH DL <= 0.005 mIU/L Qnon 0 07-09-2021 TSH Qn 1.77 m[IU]/L [facility] Vitamin D, Total, 25-OHon 25-hydroxyvitamin D [Mass/Vol] 65 ng/mL 30 - 100 ng/mL [facility] Comment on above: Vitamin D status: Deficiency: <20 ng/mL Insufficiency: 20-30 ng/mL Sufficiency: 30-100 ng/mL Toxicity: >100 ng/mL Please note that Fluorescein which is used in angiography has been shown to falsely elevate the results of Vitamin D with our current assay. Evidence suggests that patients undergoing fluorescein dye angiography can retain small amounts of fluorescein in the body for up to 48 to 72 hours post-treatment. In the cases of patients with renal insufficiency, retention could be much longer. Samples should be resubmitted post fluorescein clearance to ensure there is no interference with the Vitamin D test result. Interpretation and review of laboratory results Normal [facility] Assay performed woody Merida's chemiluminescence methodology. [facility] AIRWAY ETTon 11-13-2020 ÁNGEL Sanchez 11/13/2020 11:18 AM ETT Airway Mask ventilation: ventilated by mask Technique: direct laryngoscopy Type: cuffed oral Tube size: 7 mm Final laryngoscope: Blanca 2 Location: oral Final grade: 1 Insertion attempts: 2 Laryngoscope (1st attempt): Blanca and 2 Grade view (1st attempt): 1 Placement verification: auscultation, symmetrical chest wall movement and end tidal CO2 Secured at: 23 cm (measured from the lips) Secured by: tape Bite block: soft Lip/tooth/tongue trauma: no [facility] MM COMPARISON IMPORTon 05-25 This order has been auto-finalized and does not contain a result. [facility] CBC, EDIF, PLATELETon 2020 ABSOLUTE BASOPHIL COUNT 0.1 10*3/uL 0 - 0.2 10*3/uL [facility] Basophils/100 WBC (Bld) 0.6 % 0 - 2 % [facility] Differential cell count method Nom (Bld) AUTO DIFF % [facility] Eosinophils (Bld) [#/Vol] 0.20 10*3/uL 0 - 0.7 10*3/uL [facility] Eosinophils/100 WBC (Bld) 2.3 % 0 - 11 % [facility] Erythrocyte distribution width (RBC) [Ratio] 13.3 % 11.5 - 14.5 % [facility] Hematocrit (Bld) [Volume fraction] 35.1 % Low 36 - 48 % [facility] Hemoglobin (Bld) [Mass/Vol] 11.8 g/dL Low [facility] Interpretation and review of laboratory results Abnormal [facility] Lymphocytes (Bld) [#/Vol] 1.70 10*3/uL 1.2 - 3.4 10*3/uL [facility] Lymphocytes/100 WBC (Bld) 18.0 % Low 20 - 55 % [facility] MCH (RBC) [Entitic mass] 28.0 pg 26 - 35 PG [facility] MCHC (RBC) [Mass/Vol] 33.7 g/dL [facility] MCV (RBC) [Entitic vol] 83.1 fL [facility] Monocytes (Bld) [#/Vol] 0.4 10*3/uL 0 - 0.7 10*3/uL [facility] Monocytes/100 WBC (Bld) 4.3 % 0 - 10 % [facility] Neutrophils (Bld) [#/Vol] 7.0 10*3/uL High 1.4 - 6.5 10*3/uL [facility] Neutrophils/100 WBC (Bld) 74.8 % 37 - 75 % [facility] Platelet mean volume (Bld) [Entitic vol] 6.5 fL Low [facility] Platelets (Bld) [#/Vol] 587 10*3/uL High 130 - 400 10*3/uL [facility] RBC (Bld) [#/Vol] 4.23 10*6/uL 4 - 5.4 10*6/uL [facility] WBC (Bld) [#/Vol] 9.3 10*3/uL 3.6 - 11 10*3/uL [facility] CHEM 7 (LYTES,BUN,CREA,GLUC) on 03-15-2020 Chloride [Moles/Vol] 101 mmol/L [facility] CO2 [Moles/Vol] 24 mmol/L [facility] Creatinine [Mass/Vol] 0.62 mg/dL [facility] GFR/1.73 sq M predicted among blacks MDRD (S/P/Bld) [Vol rate/Area] mL/min/{1.73_m2} ml/min/1.7 3sq.m [facility] GFR/1.73 sq M predicted among non-blacks MDRD (S/P/Bld) [Vol rate/Area] Average GFR for 40-49 years old = 99. [facility] Comment on above: Chronic Kidney disea se, GFR = <60. Kidney failure, GFR = <15. The GFR estimate is not adjusted for extreme body surface area or acute process, nor has it been validated for women or ethnic groups other than and . GFR/1.73 sq M predicted among non-blacks MDRD (S/P/Bld) [Vol rate/Area] mL/min/{1.73_m2} ml/min/1.7 3sq.m [facility] Glucose post fast [Mass/Vol] 113 mg/dL High [facility] Comment on above: NORMAL <100 mg/dL PREDIABETES 101-126 mg/dL DIABETES 126 mg/dL or higher Interpretation and review of laboratory results Abnormal [facility] Potassium [Moles/Vol] 3.4 mmol/L Low [facility] Sodium [Moles/Vol] 136 mmol/L [facility] Urea nitrogen [Mass/Vol] 8 mg/dL [facility] LACTATE, BLOODon 03-15-2020 Lactate [Moles/Vol] 1.5 mmol/L [facility] US FINE NEEDLE ASPIRATION BR EAST RIGHTon 03-15-2020 IMPRESSION: Ultrasound-guided percutaneous 6 [place] drain was placed in a postoperative fluid accumulation in the right breast as described above. [facility] EXAM: US FINE NEEDLE ASPIRATION BREAST RIGHT HISTORY: Drainage of 9.1 at 7.9 4.6 cm anechoic fluid collection right breast Patient had breast reduction and developed a sudden large area of fluid collection in the superomedial right breast. COMPARISON: Ultrasound earlier this day PROCEDURE: The procedure was discussed. Complications were discussed. Timeout was performed. Consent was obtained. In the emergency room ultrasound identified the large anechoic fluid collection. A suitable area for approach was marked. This area was sterilely prepared. Local lidocaine was administered. A small skin incision was performed. A 6 [place] drain was advanced under ultrasound guidance and then deployed and positioned within the fluid collection. 190 mL of turbid brownish fluid was removed. This was placed in specimen cups and should be sent to lab for cultures and sensitivity. Final images show the fluid to be nearly entirely drained. The drain was secured to the chest wall and placed to gravity drainage. [facility] User, Interfaces - 03/15/2020 4:23 PM EST EXAM: US FINE NEEDLE ASPIRATION BREAST RIGHT HISTORY: Drainage of 9.1 at 7.9 4.6 cm anechoic fluid collection right breast Patient had breast reduction and developed a sudden large area of fluid collection in the superomedial right breast. COMPARISON: Ultrasound earlier this day PROCEDURE: The procedure was discussed. Complications were discussed. Timeout was performed. Consent was obtained. In the emergency room ultrasound identified the large anechoic fluid collection. A suitable area for approach was marked. This area was sterilely prepared. Local lidocaine was administered. A small skin incision was performed. A 6 Venezuelan drain was advanced under ultrasound guidance and then deployed and positioned within the fluid collection. 190 mL of turbid brownish fluid was removed. This was placed in specimen cups and should be sent to lab for cultures and sensitivity. Final images show the fluid to be nearly entirely drained. The drain was secured to the chest wall and placed to gravity drainage. IMPRESSION IMPRESSION: Ultrasound-guided percutaneous 6 Venezuelan drain was placed in a postoperative fluid accumulation in the right breast as described above. [facility] US SOFT TISSUEon 03-15-2020 IMPRESSION: 9.1 x 7. 9 x 4.6 cm anechoic fluid collection is seen in the area of concern. Primary consideration is seroma or liquefied hematoma. Abscess is considered. Aspiration is recommended. [facility] User, Interfaces - 03/15/2020 1:15 PM EST EXAM: US SOFT TISSUE HISTORY: Ultrasound right breast for post operative abscess or seroma Post breast reduction. COMPARISON: None. TECHNIQUE: Sonographic evaluation was performed. Images are labeled right breast area of concern. FINDINGS: There is a large well marginated anechoic area of fluid collection which measures 9.1 x 7.9 x 4.6 cm. There is very little internal echogenicity. Primary consideration would be liquefied hematoma or seroma. Abscess is in the differential. IMPRESSION IMPRESSION: 9.1 x 7.9 x 4.6 cm anechoic fluid collection is seen in the area of concern. Primary consideration is seroma or liquefied hematoma. Abscess is considered. Aspiration is recommended. [facility] EXAM: US SOFT TISSUE HISTORY: Ultrasound right breast for post operative abscess or seroma Post breast reduction. COMPARISON: None. TECHNIQUE: Sonographic evaluation was performed. Images are labeled right breast area of concern. FINDINGS: There is a large well marginated anechoic area of fluid collection which measures 9.1 x 7.9 x 4.6 cm. There is very little internal echogenicity. Primary consideration would be liquefied hematoma or seroma. Abscess is in the differential. [facility] APTTon 01-30-2020 aPTT Coag (Bld) [Time] 30 s [facility] aPTT Coag (Bld) [Time] Therapeutic range for APTT's is 68 - 104 seconds [facility] Basic Metabolic Panelon 01-08 Anion gap [Moles/Vol] 11 mmol/L 10 - 2 0 mmol/L [facility] Calcium [Mass/Vol] 8.8 mg/dL 8.4 - 10. 2 mg/dL [facility] Chloride [Moles/Vol] 107 mmol/L 98 - 10 8 mmol/L [facility] Creatinine [Mass/Vol] 0.71 mg/dL 0.40 - 1.10 [facility] GFR/1.73 sq M predicted among non-blacks MDRD (S/P/Bld) [Vol rate/Area] The eGFR should be used for monitoring renal function only and not for medication dosing. [facility] GFR/1.73 sq M.predicted CKD-EPI (S/P/Bld) [Vol rate/Area] 102 >=60 mL/min/1.7 3 m2 [facility] Glucose [Mass/Vol] 77 mg/dL 65 - 99 mg/dL [facility] HCO3 [Moles/Vol] 26 mmol/L 21 - 32 mmol/L [facility] Interpretation and review of laboratory results Abnormal [facility] Potassium [Moles/Vol] 3.4 mmol/L Low 3.5 - 5.1 mmol/L [facility] Sodium [Moles/Vol] 141 mmol/L 135 - 145 mmol/L [facility] Urea nitrogen [Mass/Vol] 10 mg/dL 8 - 25 mg/dL [facility] Urea nitrogen/Creatinine [Mass ratio] 14.1 mg/mg [facility] Otheron 01-30-2020 Interpretation and review of laboratory results Normal [facility] PT/INRon 01-30-2020 INR Coag (PPP) [Relative time] 1.0 {INR} [facility] PT Coag (PPP) [Time] 12.5 s [facility] During the induction phase of oral anticoagulation, the INR may not reflect the anticoagulation status of the patient. Therapeutic ranges for INR's are: Most clinical situations: INR 2.0-3.0 Mechanical Prosthetic Valve: INR 2.5-3.5 Critical: INR >5.0 [facility] MR Hip Right Without Contras ton 11-04-2018 1. Minimal right hip osteoarthritis without significant chondrosis. 2. Right proximal hamstring tendinosis and partial tearing. 3. Nonspecific edema involving the ischial femoral space. 4. Mild degenerative disc disease. 5. Suspect chronic healed right sacral ala fracture. Workstation ID: [id number] [facility] EXAMINATION: MR HIP RIGHT WITHOUT CONTRAST HISTORY: ORDERING SYSTEM PROVIDED HISTORY: chronic pain, TECHNOLOGIST PROVIDED HISTORY: Injury/Trauma Reason for exam: right hip pain with limited rom following injury one year ago: no hx of cancer: Encounter Type: Unknown Mechanism of injury: fall into pool: ORDERING SYSTEM PROVIDED DIAGNOSIS CODES: M25.551 Chronic right hip pain G89.29 Chronic right hip pain COMPARISON: Plain radiograph 09/03/2018. CT scan 08/12/2016 TECHNIQUE: Multiplanar, multisequence imaging of the right hipwas performed without contrast FINDINGS: On small mvzkr-ms-xvyk imaging of the right hip, the right femur is well seated within the acetabulum. The bone marrow signal is normal without evidence of fracture, osteonecrosis or other marrow replacement process. No significant joint space narrowing or cartilage loss identified. Mild marginal osteophytes are present. There is no joint effusion. There is mild edema involving the quadratus femoris muscle belly at the level of the ischial femoral space. No significant narrowing of the ischial femoral space. There is intermediate tendinosis involving the proximal right hamstring fibers with mild surrounding edema compatible with tendinosis and partial tearing. The remaining right hip regional musculatures without muscle strain or tendon tear. On large dmuvp-yh-stgq imaging, the bone marrow signal is somewhat heterogeneous, favoring represent red marrow reconversion. There is mild loss of normal intervertebral disc space signal. No significant disc space height loss identified. The sacroiliac joints are intact. There is linear T1 and T2 hypointense signal involving the right sacral ala (series 4/5, image 26) correlates with sclerosis seen on old CT scan and likely represents prior fracture. There is no edema or effusion involving the sacroiliac joints. The left femur is well seated within the acetabulum without fracture or AVN. No joint effusion. The pubic symphysis is intact. The left hip regional musculatures without muscle strain or tendon tear. [facility], Rad In Fu ji Speechq - 11/04/2018 2:09 PM EDT EXAMINATION: MR HIP RIGHT WITHOUT CONTRAST HISTORY: ORDERING SYSTEM PROVIDED HISTORY: chronic pain, TECHNOLOGIST PROVIDED HISTORY: Injury/Trauma Reason for exam: right hip pain with limited rom following injury one year ago: no hx of cancer: Encounter Type: Unknown Mechanism of injury: fall into pool: ORDERING SYSTEM PROVIDED DIAGNOSIS CODES: M25.551 Chronic right hip pain G89.29 Chronic right hip pain COMPARISON: Plain radiograph 09/03/2018. CT scan 08/12/2016 TECHNIQUE: Multiplanar, multisequence imaging of the right hipwas performed without contrast FINDINGS: On small snfzo-hc-jxps imaging of the right hip, the right femur is well seated within the acetabulum. The bone marrow signal is normal without evidence of fracture, osteonecrosis or other marrow replacement process. No significant joint space narrowing or cartilage loss identified. Mild marginal osteophytes are present. There is no joint effusion. There is mild edema involving the quadratus femoris muscle belly at the level of the ischial femoral space. No significant narrowing of the ischial femoral space. There is intermediate tendinosis involving the proximal right hamstring fibers with mild surrounding edema compatible with tendinosis and partial tearing. The remaining right hip regional musculatures without muscle strain or tendon tear. On large wrgye-mv-qvpd imaging, the bone marrow signal is somewhat heterogeneous, favoring represent red marrow reconversion. There is mild loss of normal intervertebral disc space signal. No significant disc space height loss identified. The sacroiliac joints are intact. There is linear T1 and T2 hypointense signal involving the right sacral ala (series 4/5, image 26) correlates with sclerosis seen on old CT scan and likely represents prior fracture. There is no edema or effusion involving the sacroiliac joints. The left femur is well seated within the acetabulum without fracture or AVN. No joint effusion. The pubic symphysis is intact. The left hip regional musculatures without muscle strain or tendon tear. IMPRESSION: 1. Minimal right hip osteoarthritis without significant chondrosis. 2. Right proximal hamstring tendinosis and partial tearing. 3. Nonspecific edema involving the ischial femoral space. 4. Mild degenerative disc disease. 5. Suspect chronic healed right sacral ala fracture. Workstation ID: [id number] [facility] XR Hip Right 2-3 Views (Rout ine)on 09-03-2018 Normal right hip. Workstation ID: [id number] [facility] EXAMINATION: XR HIP RIGHT 2-3 VIEWS (ROUTINE) HISTORY: ORDERING SYSTEM PROVIDED HISTORY: pain, TECHNOLOGIST PROVIDED HISTORY: Injury/Trauma Reason for exam: right hip pain since falling in 2017 Cancer History: Surgery, RadiationHistory: Encounter Type: Initial Mechanism of injury: fall ORDERING SYSTEM PROVIDED DIAGNOSIS CODES: M25.551 Right hip pain COMPARISON: None. FINDINGS: AP and lateral views of the right hip were obtained. There is no evidence of fracture, dislocation or destructive osseous lesions. No soft tissue abnormalities identified. [facility] Interface, Rad In Fu ji Speechq - 09/03/2018 9:27 AM EDT EXAMINATION: XR HIP RIGHT 2-3 VIEWS (ROUTINE) HISTORY: ORDERING SYSTEM PROVIDED HISTORY: pain, TECHNOLOGIST PROVIDED HISTORY: Injury/Trauma Reason for exam: right hip pain since falling in 2017 Cancer History: Surgery, RadiationHistory: Encounter Type: Initial Mechanism of injury: fall ORDERING SYSTEM PROVIDED DIAGNOSIS CODES: M25.551 Right hip pain COMPARISON: None. FINDINGS: AP and lateral views of the right hip were obtained. There is no evidence of fracture, dislocation or destructive osseous lesions. No soft tissue abnormalities identified. IMPRESSION: Normal right hip. Workstation ID: [id number] [facility] XR FOOT LEFT 3 VIEWSon 06-06 Impression: Small st able heel spur. No acute findings. [facility] XR FOOT LEFT 3 VIEWS 06/06/2018 8:55 PM EDT Indication: pain Technique: Routine radiographs of the left foot were obtained. Comparison: March 27, 2016 Findings: Visualized osseous structures are normal in alignment and mineralization. No fractures noted. No joint destruction or dislocation. Small inferior calcaneal spur noted. Soft tissues are unremarkable for age. [facility] User, Interfaces - 06/06/2018 10:13 PM EDT XR FOOT LEFT 3 VIEWS 06/06/2018 8:55 PM EDT Indication: pain Technique: Routine radiographs of the left foot were obtained. Comparison: March 27, 2016 Findings: Visualized osseous structures are normal in alignment and mineralization. No fractures noted. No joint destruction or dislocation. Small inferior calcaneal spur noted. Soft tissues are unremarkable for age. IMPRESSION Impression: Small stable heel spur. No acute findings. [facility] 25-Hydroxy D Totalon 03-19-2 019 25-Hydroxy D Total 29 ng/mL Low 30-100 [facility] Comment on above: Result Comment: Marino joseph note that Fluorescein which is used in angiography has been shown to falsely elevate the results of Vitamin D with our current assay. Evidence suggests that patients undergoing fluorescein dye angiography can retain small amounts of fluorescein in the body for up to 48 to 72 hours post-treatment. In the cases of patients with renal insufficiency, retention could be much longer. Samples should be resubmitted post fluorescein clearance to ensure there is no interference with the Vitamin D test result. Vitamin D Status Range: Deficiency < 20 ng/mL Insufficiency 20-30 ng/mL Sufficiency 30-100 ng/mL Toxicity > 100 ng/mL Performed By: #### C BCDIF, [id number], CMET, FT4, TSH, LIPID #### Unless otherwise noted, all testing performed by [place] [address] CLIA: [id number] Motorcycle Maker: Ashkan Puente M.D. Comprehensive Metabolic Pane nima 03-19-2018 Albumin mass conc 3.4 g/dL Normal 3.2-5.2 [facility] Comment on above: Performed By: #### C BCDIF, [id number], CMET, FT4, TSH, LIPID #### Unless otherwise noted, all testing performed by [place] [address] CLIA: [id number] Motorcycle Maker: Ashkan Puente M.D. ALP enzyme act/vol 94 U/L Normal 40-150 [facility] Comment on above: Performed By: #### C BCDIF, [id number], CMET, FT4, TSH, LIPID #### Unless otherwise noted, all testing performed by [place] [address] CLIA: [id number] Motorcycle Maker: Ashkan Puente M.D. ALT enzyme act/vol 28 U/L Normal 14-65 [facility] Comment on above: Result Comment: This test result might be falsely depressed or falsely elevated on samples drawn from patients taking Sulfasalazine and Sulfapyridine. Venipuncture should occur prior to taking either of these drugs. Performed By: #### C BCDIF, [id number], CMET, FT4, TSH, LIPID #### Unless otherwise noted, all testing performed by [place] [address] CLIA: [id number] Motorcycle Maker: Ashkan Puente M.D. AST enzyme act/vol 21 U/L Normal 0-45 [facility] Comment on above: Result Comment: This test result might be falsely depressed or falsely elevated on samples drawn from patients taking Sulfasalazine and Sulfapyridine. Venipuncture should occur prior to taking either of these drugs. Performed By: #### C BCDIF, [id number], CMET, FT4, TSH, LIPID #### Unless otherwise noted, all testing performed by [place] [address] CLIA: [id number] Motorcycle Maker: Ashkan Puente M.D. Bilirubin mass conc 0.2 mg/dL Low 0.3-1.2 [facility] Comment on above: Performed By: #### C BCDIF, [id number], CMET, FT4, TSH, LIPID #### Unless otherwise noted, all testing performed by [place] [address] CLIA: [id number] Motorcycle Maker: Ashkan Puente M.D. Calcium mass conc 8.0 mg/dL Low 8.4-10.2 [facility] Comment on above: Performed By: #### C BCDIF, [id number], CMET, FT4, TSH, LIPID #### Unless otherwise noted, all testing performed by [place] [address] CLIA: [id number] Motorcycle Maker: Ashkan Puente M.D. Chloride molar conc 106 mmol/L Normal 98-108 [facility] Comment on above: Performed By: #### C BCDIF, [id number], CMET, FT4, TSH, LIPID #### Unless otherwise noted, all testing performed by [place] [address] CLIA: [id number] Motorcycle Maker: Ashkan Puente M.D. CO2 molar conc 26 mmol/L Normal 21-32 [facility] Comment on above: Performed By: #### C BCDIF, [id number], CMET, FT4, TSH, LIPID #### Unless otherwise noted, all testing performed by [place] [address] CLIA: [id number] Motorcycle Maker: Ashkan Puente M.D. Creatinine mass conc 0.62 mg/dL Normal 0.40-1.10 [facility] Comment on above: Performed By: #### C BCDIF, [id number], CMET, FT4, TSH, LIPID #### Unless otherwise noted, all testing performed by [place] [address] CLIA: [id number] Motorcycle Maker: Ashkan Puente M.D. GFR/1.73 sq M predicted among blacks MDRD vol rate/area (S/P/Bld) mL/min/{1.73_m2} Normal [facility] Comment on above: Result Comment: Afri can Bhutanese GFR Calc Performed By: #### C BCDIF, [id number], CMET, FT4, TSH, LIPID #### Unless otherwise noted, all testing performed by [place] [address] CLIA: [id number] Motorcycle Maker: Ashkan Puente M.D. GFR/1.73 sq M predicted among non-blacks MDRD vol rate/area (S/P/Bld) mL/min/{1.73_m2} Normal [facility] Comment on above: Result Comment: Non- GFR Calc eGFR is an estimated Glomerular Filtration Rate based on the value of the patient's serum creatinine. In outpatients, eGFR should be used as a helpful tool in screening for CKD. In inpatients or patients with acute renal failure, eGFR represents the GFR at the moment of the draw and should be used with caution. Performed By: #### C BCDIF, [id number], CMET, FT4, TSH, LIPID #### Unless otherwise noted, all testing performed by [place] [address] CLIA: [id number] Motorcycle Maker: Ashkan Puente M.D. Glucose mass conc 84 mg/dL Normal 70-99 [facility] Comment on above: Result Comment: This test result might be falsely depressed or falsely elevated on samples drawn from patients taking Sulfasalazine and Sulfapyridine. Venipuncture should occur prior to taking either of these drugs. Performed By: #### C BCDIF, [id number], CMET, FT4, TSH, LIPID #### Unless otherwise noted, all testing performed by [place] [address] CLIA: [id number] Motorcycle Maker: Ashkan Puente M.D. Potassium molar conc 4.0 mmol/L Normal 3.5-5.1 [facility] Comment on above: Performed By: #### C BCDIF, [id number], CMET, FT4, TSH, LIPID #### Unless otherwise noted, all testing performed by [place] [address] CLIA: [id number] Motorcycle Maker: Ashkan Puente M.D. Protein mass conc 7.2 g/dL Normal 6.0-8.0 [facility] Comment on above: Performed By: #### C BCDIF, [id number], CMET, FT4, TSH, LIPID #### Unless otherwise noted, all testing performed by [place] [address] CLIA: [id number] Motorcycle Maker: Ashkan Puente M.D. Sodium molar conc 140 mmol/L Normal 135-145 [facility] Comment on above: Performed By: #### C BCDIF, [id number], CMET, FT4, TSH, LIPID #### Unless otherwise noted, all testing performed by [place] [address] CLIA: [id number] Motorcycle Maker: Ashkan Puente M.D. Urea nitrogen mass conc 18 mg/dL Normal 8-25 [facility] Comment on above: Performed By: #### C BCDIF, [id number], CMET, FT4, TSH, LIPID #### Unless otherwise noted, all testing performed by [place] [address] CLIA: [id number] Motorcycle Maker: Ashkan Puente M.D. Lipid Panelon 03-19-2018 Cholesterol in HDL mass conc 71 mg/dL High 40-59 [facility] Comment on above: Performed By: #### C BCDIF, [id number], CMET, FT4, TSH, LIPID #### Unless otherwise noted, all testing performed by [place] [address] CLIA: [id number] Motorcycle Maker: Ashkan Puente M.D. Cholesterol in LDL mass conc 99 mg/dL Normal 10-150 [facility] Comment on above: Performed By: #### C BCDIF, [id number], CMET, FT4, TSH, LIPID #### Unless otherwise noted, all testing performed by [place] [address] CLIA: [id number] Motorcycle Maker: Ashkan Puente M.D. Cholesterol in VLDL mass conc 22 mg/dL Normal 5-40 [facility] Comment on above: Performed By: #### C BCDIF, [id number], CMET, FT4, TSH, LIPID #### Unless otherwise noted, all testing performed by [place] [address] CLIA: [id number] Motorcycle Maker: Ashkan Puente M.D. Cholesterol mass conc 192 mg/dL Normal 100-199 [facility] Comment on above: Performed By: #### C BCDIF, [id number], CMET, FT4, TSH, LIPID #### Unless otherwise noted, all testing performed by [place] [address] CLIA: [id number] Motorcycle Maker: Ashkan Puente M.D. Cholesterol.total/Cho lesterol in HDL mass ratio 2.7 {ratio} Low 3.2-5.0 [facility] Comment on above: Result Comment: Osbaldo reyes Coronary Heart Disease Risk Factor (CHDRF): Average risk= 4.4 1/2 Average risk= 3.3 2 times Average risk= 7.1 Performed By: #### C BCDIF, [id number], CMET, FT4, TSH, LIPID #### Unless otherwise noted, all testing performed by [place] [address] CLIA: [id number] Motorcycle Maker: Ashkan Puente M.D. Triglyceride mass conc 108 mg/dL Normal 30-150 [facility] Comment on above: Performed By: #### C BCDIF, [id number], CMET, FT4, TSH, LIPID #### Unless otherwise noted, all testing performed by [place] [address] CLIA: [id number] Motorcycle Maker: Ashkan Puente M.D. T4, Freeon 03-19-2018 T4 free mass conc 1.2 ng/dL Normal 0.76-1.79 [facility] Comment on above: Result Comment: Samp les from patients routinely receiving high dose biotin therapy (100-300 mg/day) may show falsely increased results. Please correlate clinically. Performed By: #### C BCDIF, [id number], CMET, FT4, TSH, LIPID #### Unless otherwise noted, all testing performed by [place] [address] CLIA: [id number] Motorcycle Maker: Ashkan Puente M.D. TSHon 03-19-2018 Thyrotropin Qn 0.06 uIU/mL Low 0.270-4.20 0 [facility] Comment on above: Result Comment: Samp les from patients routinely receiving high dose biotin therapy (100-300 mg/day) may show falsely decreased results. Please correlate clinically. Please note reference range change as of 12/29/17. Performed By: #### C BCDIF, [id number], CMET, FT4, TSH, LIPID #### Unless otherwise noted, all testing performed by [place] [address] CLIA: [id number] Motorcycle Maker: sAhkan Puente M.D. 25-Hydroxy D Totalon 16- 018 25-Hydroxy D Total 53 ng/mL Normal 30-100 [facility] Comment on above: Result Comment: Plea se note that Fluorescein which is used in angiography has been shown to falsely elevate the results of Vitamin D with our current assay. Evidence suggests that patients undergoing fluorescein dye angiography can retain small amounts of fluorescein in the body for up to 48 to 72 hours post-treatment. In the cases of patients with renal insufficiency, retention could be much longer. Samples should be resubmitted post fluorescein clearance to ensure there is no interference with the Vitamin D test result. Vitamin D Status Range: Deficiency < 20 ng/mL Insufficiency 20-30 ng/mL Sufficiency 30-100 ng/mL Toxicity > 100 ng/mL Performed By: #### C BCWOD, [id number], FT4, TSH, CMET, LIPID #### Unless otherwise noted, all testing performed by [place] [address] CLIA: [id number] Motorcycle Maker: Ashkan Puente M.D. CBC w/o Diffon 12-22-2017 Erythrocyte distribution width Ratio (RBC) 13.1 % Normal 10.0-14.4 [facility] Comment on above: Performed By: #### C BCWOD, [id number], FT4, TSH, CMET, LIPID #### Unless otherwise noted, all testing performed by [place] [address] CLIA: [id number] Motorcycle Maker: Ashkan Puente M.D. Hematocrit Volume Fraction (Bld) 34.6 % Normal 34.4-44.8 [facility] Comment on above: Performed By: #### C BCWOD, [id number], FT4, TSH, CMET, LIPID #### Unless otherwise noted, all testing performed by [place] [address] CLIA: [id number] Motorcycle Maker: Ashkan Puente M.D. Hemoglobin mass conc (Bld) 11.6 g/dL Normal 11.6-15.4 [facility] Comment on above: Performed By: #### C BCWOD, [id number], FT4, TSH, CMET, LIPID #### Unless otherwise noted, all testing performed by [place] [address] CLIA: [id number] Motorcycle Maker: Ashkan Puente M.D. MCH Entitic mass (RBC) 28.7 pg Normal 27.9-33.9 [facility] Comment on above: Performed By: #### C BCWOD, [id number], FT4, TSH, CMET, LIPID #### Unless otherwise noted, all testing performed by [place] [address] CLIA: [id number] Motorcycle Maker: Ashkan Puente M.D. MCHC mass conc (RBC) 33.6 g/dL Normal 33.1-35.1 [facility] Comment on above: Performed By: #### C BCWOD, [id number], FT4, TSH, CMET, LIPID #### Unless otherwise noted, all testing performed by [place] [address] CLIA: [id number] Motorcycle Maker: Ashkan Puente M.D. MCV Entitic volume (RBC) 85.5 fL Normal 82.6-98.9 [facility] Comment on above: Performed By: #### C BCWOD, [id number], FT4, TSH, CMET, LIPID #### Unless otherwise noted, all testing performed by [place] [address] CLIA: [id number] Motorcycle Maker: Ashkan Puente M.D. Platelet mean volume Entitic volume (Bld) 7.5 fL Normal 7.0-10.6 [facility] Comment on above: Performed By: #### C BCWOD, [id number], FT4, TSH, CMET, LIPID #### Unless otherwise noted, all testing performed by [place] [address] CLIA: [id number] Motorcycle Maker: Ashkan Puente M.D. Platelets #/vol (Bld) 393 K/mcL Normal 162-402 [facility] Comment on above: Performed By: #### C BCWOD, [id number], FT4, TSH, CMET, LIPID #### Unless otherwise noted, all testing performed by [place] [address] CLIA: [id number] Motorcycle Maker: Ashkan Puente M.D. RBC #/vol (Bld) 4.05 M/mcL Normal 3.7-5.0 [facility] Comment on above: Performed By: #### C BCWOD, [id number], FT4, TSH, CMET, LIPID #### Unless otherwise noted, all testing performed by [place] [address] CLIA: [id number] Motorcycle Maker: Ashkan Puente M.D. WBC #/vol (Bld) 6.5 K/mcL Normal 3.4-10.6 [facility] Comment on above: Performed By: #### C BCWOD, [id number], FT4, TSH, CMET, LIPID #### Unless otherwise noted, all testing performed by [place] [address] CLIA: [id number] Motorcycle Maker: Ashkan Puente M.D. Comprehensive Metabolic Pane [facility] 12-22-2017 Albumin mass conc 3.1 g/dL Low 3.2-5.2 [facility] Comment on above: Performed By: #### C BCDIF, [id number], CMET, FT4, TSH, LIPID #### Unless otherwise noted, all testing performed by [place] [address] CLIA: [id number] Motorcycle Maker: Ashkan Puente M.D. ALP enzyme act/vol 72 U/L Normal 40-150 [facility] Comment on above: Performed By: #### C BCDIF, [id number], CMET, FT4, TSH, LIPID #### Unless otherwise noted, all testing performed by [place] [address] CLIA: [id number] Motorcycle Maker: Ashkan Puente M.D. ALT enzyme act/vol 20 U/L Normal 14-65 [facility] Comment on above: Result Comment: This test result might be falsely depressed or falsely elevated on samples drawn from patients taking Sulfasalazine and Sulfapyridine. Venipuncture should occur prior to taking either of these drugs. Performed By: #### C BCDIF, [id number], CMET, FT4, TSH, LIPID #### Unless otherwise noted, all testing performed by [place] [address] CLIA: [id number] Motorcycle Maker: Ashkan Puente M.D. AST enzyme act/vol 17 U/L Normal 0-45 [facility] Comment on above: Result Comment: This test result might be falsely depressed or falsely elevated on samples drawn from patients taking Sulfasalazine and Sulfapyridine. Venipuncture should occur prior to taking either of these drugs. Performed By: #### C BCDIF, [id number], CMET, FT4, TSH, LIPID #### Unless otherwise noted, all testing performed by [place] [address] CLIA: [id number] Motorcycle Maker: Ashkan Puente M.D. Bilirubin mass conc 0.2 mg/dL Low 0.3-1.2 [facility] Comment on above: Performed By: #### C BCDIF, [id number], CMET, FT4, TSH, LIPID #### Unless otherwise noted, all testing performed by [place] [address] CLIA: [id number] Motorcycle Maker: Ashkan Puente M.D. Calcium mass conc 8.3 mg/dL Low 8.4-10.2 [facility] Comment on above: Performed By: #### C BCDIF, [id number], CMET, FT4, TSH, LIPID #### Unless otherwise noted, all testing performed by [place] [address] CLIA: [id number] Motorcycle Maker: Ashkan Puente M.D. Chloride molar conc 107 mmol/L Normal 98-108 [facility] Comment on above: Performed By: #### C BCDIF, [id number], CMET, FT4, TSH, LIPID #### Unless otherwise noted, all testing performed by [place] [address] CLIA: [id number] Motorcycle Maker: Ashkan Puente M.D. CO2 molar conc 24 mmol/L Normal 21-32 [facility] Comment on above: Performed By: #### C BCDIF, [id number], CMET, FT4, TSH, LIPID #### Unless otherwise noted, all testing performed by [place] [phone] CLIA: [id number] Motorcycle Maker: Ashkan Puente M.D. Creatinine mass conc 0.73 mg/dL Normal 0.40-1.10 [facility] Comment on above: Performed By: #### C BCDIF, [id number], CMET, FT4, TSH, LIPID #### Unless otherwise noted, all testing performed by [place] [address] CLIA: [id number] Motorcycle Maker: Ashkan Puente M.D. GFR/1.73 sq M predicted among blacks MDRD vol rate/area (S/P/Bld) mL/min/{1.73_m2} Normal [facility] Comment on above: Result Comment: Afri can Bhutanese GFR Calc Performed By: #### C BCDIF, [id number], CMET, FT4, TSH, LIPID #### Unless otherwise noted, all testing performed by [place] [address] CLIA: [id number] Motorcycle Maker: Ashkan Puente M.D. GFR/1.73 sq M predicted among non-blacks MDRD vol rate/area (S/P/Bld) mL/min/{1.73_m2} Normal [facility] Comment on above: Result Comment: Non- GFR Calc eGFR is an estimated Glomerular Filtration Rate based on the value of the patient's serum creatinine. In outpatients, eGFR should be used as a helpful tool in screening for CKD. In inpatients or patients with acute renal failure, eGFR represents the GFR at the moment of the draw and should be used with caution. Performed By: #### C BCDIF, [id number], CMET, FT4, TSH, LIPID #### Unless otherwise noted, all testing performed by [place] [address] CLIA: [id number] Motorcycle Maker: Ashkan Puente M.D. Glucose mass conc 84 mg/dL Normal 70-99 [facility] Comment on above: Result Comment: This test result might be falsely depressed or falsely elevated on samples drawn from patients taking Sulfasalazine and Sulfapyridine. Venipuncture should occur prior to taking either of these drugs. Performed By: #### C BCDIF, [id number], CMET, FT4, TSH, LIPID #### Unless otherwise noted, all testing performed by [place] [address] CLIA: [id number] Motorcycle Maker: Ashkan Puente M.D. Potassium molar conc 4.0 mmol/L Normal 3.5-5.1 [facility] Comment on above: Performed By: #### C BCDIF, [id number], CMET, FT4, TSH, LIPID #### Unless otherwise noted, all testing performed by [place] [address] CLIA: [id number] Motorcycle Maker: Ashkan Puente M.D. Protein mass conc 6.8 g/dL Normal 6.0-8.0 [facility] Comment on above: Performed By: #### C BCDIF, [id number], CMET, FT4, TSH, LIPID #### Unless otherwise noted, all testing performed by [place] [address] CLIA: [id number] Motorcycle Maker: Ashkan Puente M.D. Sodium molar conc 140 mmol/L Normal 135-145 [facility] Comment on above: Performed By: #### C BCDIF, [id number], CMET, FT4, TSH, LIPID #### Unless otherwise noted, all testing performed by [place] [address] CLIA: [id number] Motorcycle Maker: Ashkan Puente M.D. Urea nitrogen mass conc 20 mg/dL Normal 8-25 [facility] Comment on above: Performed By: #### C BCDIF, [id number], CMET, FT4, TSH, LIPID #### Unless otherwise noted, all testing performed by [place] [address] CLIA: [id number] Motorcycle Maker: Ashkan Puente M.D. Lipid Panelon 12-22-2017 Cholesterol in HDL mass conc 47 mg/dL Normal 40-59 [facility] Comment on above: Performed By: #### C BCDIF, [id number], CMET, FT4, TSH, LIPID #### Unless otherwise noted, all testing performed by [place] [address] CLIA: [id number] Motorcycle Maker: Ashkan Puente M.D. Cholesterol in LDL mass conc 48 mg/dL Normal 10-150 [facility] Comment on above: Performed By: #### C BCDIF, [id number], CMET, FT4, TSH, LIPID #### Unless otherwise noted, all testing performed by [place] [address] CLIA: [id number] Motorcycle Maker: Ashkan Puente M.D. Cholesterol in VLDL mass conc 43 mg/dL High 5-40 [facility] Comment on above: Performed By: #### C BCDIF, [id number], CMET, FT4, TSH, LIPID #### Unless otherwise noted, all testing performed by [place] [address] CLIA: [id number] Motorcycle Maker: Ashkan Puente M.D. Cholesterol mass conc 138 mg/dL Normal 100-199 [facility] Comment on above: Performed By: #### C BCDIF, [id number], CMET, FT4, TSH, LIPID #### Unless otherwise noted, all testing performed by [place] [address] CLIA: [id number] Motorcycle Maker: Ashkan Puente M.D. Cholesterol.total/Cho lesterol in HDL mass ratio 3.0 {ratio} Low 3.2-5.0 [facility] Comment on above: Result Comment: Osbaldo reyes Coronary Heart Disease Risk Factor (CHDRF): Average risk= 4.4 1/2 Average risk= 3.3 2 times Average risk= 7.1 Performed By: #### C BCDIF, [id number], CMET, FT4, TSH, LIPID #### Unless otherwise noted, all testing performed by [place] [address] CLIA: [id number] Motorcycle Maker: Ashkan Puente M.D. Triglyceride mass conc 216 mg/dL High 25-120 [facility] Comment on above: Performed By: #### C BCDIF, [id number], CMET, FT4, TSH, LIPID #### Unless otherwise noted, all testing performed by [place] [address] CLIA: [id number] Motorcycle Maker: Ashkan Puente M.D. SPINE LUMBAR 2 OR 3 VIEWSon 12-22-2017 SPINE LUMBAR 2 OR 3 VIEWS Final Report Accession No: [id number] Performed: Dec 22 2017 8:30AM Examination: SPINE LUMBAR 2 OR 3 VIEWS EXAM: SPINE LUMBAR 2 OR 3 VIEWS REASON FOR EXAM: CHRONIC BACK PAIN. TECHNIQUE: 3 views of the lumbar spine were obtained.. COMPARISON: L-spine dated 09/26/2016. FINDINGS: There is satisfactory alignment of the lumbar spine. There is no evidence of fracture or listhesis.Minimal degenerative endplate spurring is seen involving the lower lumbar spine. Again noted is incomplete fusion of the posterior elements of S1. Surgical clips are present within the right upper quadrant of the abdomen. No soft tissue abnormalities appreciated. IMPRESSION: No acute osseous injury. Minimal degenerative changes. Interpreting Physician: LEORA ESPINOZA D.O. Trans: n/a : cc: Normal [facility] T4, Freeon 12-22-2017 T4 free mass conc 1.2 ng/dL Normal 0.7-1.7 [facility] Comment on above: Result Comment: Samp les from patients routinely receiving high dose biotin therapy (100-300 mg/day) may show falsely increased results. Please correlate clinically. Performed By: #### C BCDIF, [id number], CMET, FT4, TSH, LIPID #### Unless otherwise noted, all testing performed by [place] [address] CLIA: [id number] Motorcycle Maker: Ashkan Puente M.D. TSHon 12-22-2017 Thyrotropin Qn 0.18 uIU/mL Low 0.320-5.00 0 [facility] Comment on above: Result Comment: Samp les from patients routinely receiving high dose biotin therapy (100-300 mg/day) may show falsely decreased results. Please correlate clinically. Performed By: #### C BCDIF, [id number], CMET, FT4, TSH, LIPID #### Unless otherwise noted, all testing performed by [place] [address] CLIA: [id number] Motorcycle Maker: Ashkan Puente M.D. 25-Hydroxy D Totalon 018 25-Hydroxy D Total 25 ng/mL Low 30-100 [facility] Comment on above: Result Comment: Plea se note that Fluorescein which is used in angiography has been shown to falsely elevate the results of Vitamin D with our current assay. Evidence suggests that patients undergoing fluorescein dye angiography can retain small amounts of fluorescein in the body for up to 48 to 72 hours post-treatment. In the cases of patients with renal insufficiency, retention could be much longer. Samples should be resubmitted post fluorescein clearance to ensure there is no interference with the Vitamin D test result. Vitamin D Status Range: Deficiency < 20 ng/mL Insufficiency 20-30 ng/mL Sufficiency 30-100 ng/mL Toxicity > 100 ng/mL Performed By: #### C BCDIF, [id number], CMET, FT4, TSH, LIPID #### Unless otherwise noted, all testing performed by [address], [place] [address] CLIA: [id number] Motorcycle Maker: Ashkan Puente M.D. CBC and Differentialon 08-14 Basophils 0.0 K/mcL Invalid Interpretation Code 0 - 0.2 [facility] Basophils 0.0 % Invalid Interpretation Code [facility] Eosinophils 0.7 K/mcL High 0 - 0.5 [facility] Erythrocyte morphology Normal Normal Normal [facility] Comment on above: Performed By: #### C BCDIF, [id number], CMET, FT4, TSH, LIPID #### Unless otherwise noted, all testing performed by [place] [address] CLIA: [id number] Motorcycle Maker: Ashkan Puente M.D. Erythrocytes (RBC) 4.43 M/mcL Invalid Interpretation Code 3.7 - 5.0 [facility] Hematocrit (HCT) 39.0 % Invalid Interpretation Code 34.4 - 44.8 % [facility] Hemoglobin (HGB) 13.2 g/dL Normal 11.6-15.4 [facility] Comment on above: Performed By: #### C BCDIF, [id number], CMET, FT4, TSH, LIPID #### Unless otherwise noted, all testing performed by [place] [address] CLIA: [id number] Motorcycle Maker: Ashkan Puente M.D. Lymphocytes 2.4 K/mcL Invalid Interpretation Code 1.0 - 3.7 [facility] MCH 29.7 pg Invalid Interpretation Code 27.9 - 33.9 pg [facility] MCHC 33.8 g/dL Invalid Interpretation Code 33.1 - 35.1 g/dL [facility] MCV 88 fL Invalid Interpretation Code 82.6 - 98.9 [facility] Monocytes 0.3 K/mcL Invalid Interpretation Code 0.1 - 0.6 [facility] Neutrophils 4.9 K/mcL Invalid Interpretation Code 1.2 - 6.9 [facility] Platelet mean volume (PMV) 7.9 fL Invalid Interpretation Code 7.0 - 10.6 [facility] Platelets 493 K/mcL High 162 - 402 [facility] RDW-CA 14.7 % High 10 - 14.4 % [facility] Segmented Neut 59.2 % Invalid Interpretation Code [facility] T8 suppressor/100 cells 8.2 10*3/uL Invalid Interpretation Code [facility] T8 suppressor/100 cells 28.6 10*3/uL Invalid Interpretation Code [facility] T8 suppressor/100 cells 4.1 10*3/uL Invalid Interpretation Code [facility] WBC (Leukocytes) 8.3 K/mcL Invalid Interpretation Code 3.4 - 10.6 [facility] CBC with Diffon 08-14-2017 Basophils #/vol (Bld) 0.0 K/mcL Normal 0-0.2 [facility] Comment on above: Performed By: #### C BCDIF, [id number], CMET, FT4, TSH, LIPID #### Unless otherwise noted, all testing performed by [place] [address] CLIA: [id number] Motorcycle Maker: Ashkan Puente M.D. Basophils/100 WBC (Bld) 0.0 % Normal [facility] Comment on above: Performed By: #### C BCDIF, [id number], CMET, FT4, TSH, LIPID #### Unless otherwise noted, all testing performed by [place] [address] CLIA: [id number] Motorcycle Maker: Ashkan Puente M.D. Eosinophils #/vol (Bld) 0.7 K/mcL High 0-0.5 [facility] Comment on above: Performed By: #### C BCDIF, [id number], CMET, FT4, TSH, LIPID #### Unless otherwise noted, all testing performed by [address], [place] [address] CLIA: [id number] Motorcycle Maker: Ashkan Puente M.D. Eosinophils/100 WBC (Bld) 8.2 % Normal [facility] Comment on above: Performed By: #### C BCDIF, [id number], CMET, FT4, TSH, LIPID #### Unless otherwise noted, all testing performed by [place] [address] CLIA: [id number] Motorcycle Maker: Ashkan Puente M.D. Erythrocyte distribution width Ratio (RBC) 14.7 % High 10.0-14.4 [facility] Comment on above: Performed By: #### C BCDIF, [id number], CMET, FT4, TSH, LIPID #### Unless otherwise noted, all testing performed by [place] [address] CLIA: [id number] Motorcycle Maker: Ashkan Puente M.D. Hematocrit Volume Fraction (Bld) 39.0 % Normal 34.4-44.8 [facility] Comment on above: Performed By: #### C BCDIF, [id number], CMET, FT4, TSH, LIPID #### Unless otherwise noted, all testing performed by [place] [address] CLIA: [id number] Motorcycle Maker: Ashkan Puente M.D. Lymphocytes #/vol (Bld) 2.4 K/mcL Normal 1.0-3.7 [facility] Comment on above: Performed By: #### C BCDIF, [id number], CMET, FT4, TSH, LIPID #### Unless otherwise noted, all testing performed by [place] [address] CLIA: [id number] Motorcycle Maker: Ashkan Puente M.D. Lymphocytes/100 WBC (Bld) 28.6 % Normal [facility] Comment on above: Performed By: #### C BCDIF, [id number], CMET, FT4, TSH, LIPID #### Unless otherwise noted, all testing performed by [place] [address] CLIA: [id number] Motorcycle Maker: Ashkan Puente M.D. MCH Entitic mass (RBC) 29.7 pg Normal 27.9-33.9 [facility] Comment on above: Performed By: #### C BCDIF, [id number], CMET, FT4, TSH, LIPID #### Unless otherwise noted, all testing performed by [place] [address] CLIA: [id number] Motorcycle Maker: Ashkan Puente M.D. MCHC mass conc (RBC) 33.8 g/dL Normal 33.1-35.1 [facility] Comment on above: Performed By: #### C BCDIF, [id number], CMET, FT4, TSH, LIPID #### Unless otherwise noted, all testing performed by [place] [address] CLIA: [id number] Motorcycle Maker: Ashkan Puente M.D. MCV Entitic volume (RBC) 88.0 fL Normal 82.6-98.9 [facility] Comment on above: Performed By: #### C BCDIF, [id number], CMET, FT4, TSH, LIPID #### Unless otherwise noted, all testing performed by [place] [address] CLIA: [id number] Motorcycle Maker: Ashkan Puente M.D. Monocytes #/vol (Bld) 0.3 K/mcL Normal 0.1-0.6 [facility] Comment on above: Performed By: #### C BCDIF, [id number], CMET, FT4, TSH, LIPID #### Unless otherwise noted, all testing performed by [place] [address] CLIA: [id number] Motorcycle Maker: Ashkan Puente M.D. Monocytes/100 WBC (Bld) 4.1 % Normal [facility] Comment on above: Performed By: #### C BCDIF, [id number], CMET, FT4, TSH, LIPID #### Unless otherwise noted, all testing performed by [place] [address] CLIA: [id number] Motorcycle Maker: Ashkan Puente M.D. Neutrophils #/vol (Bld) 4.9 K/mcL Normal 1.2-6.9 [facility] Comment on above: Performed By: #### C BCDIF, [id number], CMET, FT4, TSH, LIPID #### Unless otherwise noted, all testing performed by [place] [address] CLIA: [id number] Motorcycle Maker: Ashkan Puente M.D. Platelet mean volume Entitic volume (Bld) 7.9 fL Normal 7.0-10.6 [facility] Comment on above: Performed By: #### C BCDIF, [id number], CMET, FT4, TSH, LIPID #### Unless otherwise noted, all testing performed by [place] [address] CLIA: [id number] Motorcycle Maker: Ashkan Puente M.D. Platelets #/vol (Bld) 493 K/mcL High 162-[address] [facility] Comment on above: Performed By: #### C BCDIF, [id number], CMET, FT4, TSH, LIPID #### Unless otherwise noted, all testing performed by [place] [address] CLIA: [id number] Motorcycle Maker: Ashkan Puente M.D. RBC #/vol (Bld) 4.43 M/mcL Normal 3.7-5.0 [facility] Comment on above: Performed By: #### C BCDIF, [id number], CMET, FT4, TSH, LIPID #### Unless otherwise noted, all testing performed by [place] [address] CLIA: [id number] Motorcycle Maker: Ashkan Puente M.D. Segmented Neut % 59.2 % Normal [facility] Comment on above: Result Comment: Giovanny al amanda performed. Performed By: #### C BCDIF, [id number], CMET, FT4, TSH, LIPID #### Unless otherwise noted, all testing performed by [place] [address] CLIA: [id number] Motorcycle Maker: Ashkan Puente M.D. WBC #/vol (Bld) 8.3 K/mcL Normal 3.4-10.6 [facility] Comment on above: Performed By: #### C BCDIF, [id number], CMET, FT4, TSH, LIPID #### Unless otherwise noted, all testing performed by [place] [address] CLIA: [id number] Motorcycle Maker: Ashkan Puente M.D. Comprehensive Metabolic Pane nima 08-14-2017 Alanine aminotransferase (ALT) 22 U/L Normal 14-65 [facility] Comment on above: Result Comment: This test result might be falsely depressed or falsely elevated on samples drawn from patients taking Sulfasalazine and Sulfapyridine. Venipuncture should occur prior to taking either of these drugs. Performed By: #### C BCDIF, [id number], CMET, FT4, TSH, LIPID #### Unless otherwise noted, all testing performed by [place] [address] CLIA: [id number] Motorcycle Maker: Ashkan Puente M.D. Albumin 3.6 g/dL Normal 3.2-5.2 [facility] Comment on above: Performed By: #### C BCDIF, [id number], CMET, FT4, TSH, LIPID #### Unless otherwise noted, all testing performed by [place] [address] CLIA: [id number] Motorcycle Maker: Ashkan Puente M.D. Alkaline phosphatase (ALP) 98 U/L Normal 40-150 [facility] Comment on above: Performed By: #### C BCDIF, [id number], CMET, FT4, TSH, LIPID #### Unless otherwise noted, all testing performed by [place] [address] CLIA: [id number] Motorcycle Maker: Ashkan Puente M.D. Aspartate aminotransferase (AST) 27 U/L Normal 0-45 [facility] Comment on above: Result Comment: This test result might be falsely depressed or falsely elevated on samples drawn from patients taking Sulfasalazine and Sulfapyridine. Venipuncture should occur prior to taking either of these drugs. Performed By: #### C BCDIF, [id number], CMET, FT4, TSH, LIPID #### Unless otherwise noted, all testing performed by [place] [address] CLIA: [id number] Motorcycle Maker: Ashkan Puente M.D. Bilirubin mass conc 0.1 mg/dL Low 0.3-1.2 [facility] Comment on above: Performed By: #### C BCDIF, [id number], CMET, FT4, TSH, LIPID #### Unless otherwise noted, all testing performed by [place] [address] CLIA: [id number] Motorcycle Maker: Ashkan Puente M.D. Calcium 8.3 mg/dL Low 8.4-10.2 [facility] Comment on above: Performed By: #### C BCDIF, [id number], CMET, FT4, TSH, LIPID #### Unless otherwise noted, all testing performed by [place] [address] CLIA: [id number] Motorcycle Maker: Ashkan Puente M.D. Chloride 107 mmol/L Normal 98-108 [facility] Comment on above: Performed By: #### C BCDIF, [id number], CMET, FT4, TSH, LIPID #### Unless otherwise noted, all testing performed by [place] [address] CLIA: [id number] Motorcycle Maker: Ashkan Puente M.D. CO2 25 mmol/L Normal 21-32 [facility] Comment on above: Performed By: #### C BCDIF, [id number], CMET, FT4, TSH, LIPID #### Unless otherwise noted, all testing performed by [place] [address] CLIA: [id number] Motorcycle Maker: Ashkan Puente M.D. Creatinine 0.84 mg/dL Normal 0.40-1.10 [facility] Comment on above: Performed By: #### C BCDIF, [id number], CMET, FT4, TSH, LIPID #### Unless otherwise noted, all testing performed by [place] [address] CLIA: [id number] Motorcycle Maker: Ashkan Puente M.D. eGFR (black) mL/min/{1.73_m2} Normal [facility] Comment on above: Result Comment: Afri can Bhut[place] GFR Calc Performed By: #### C BCDIF, [id number], CMET, FT4, TSH, LIPID #### Unless otherwise noted, all testing performed by [place] [address] CLIA: [id number] Motorcycle Maker: Ashkan Puente M.D. eGFR (non-black) mL/min/{1.73_m2} Normal [facility] Comment on above: Result Comment: Non- GFR Calc eGFR is an estimated Glomerular Filtration Rate based on the value of the patient's serum creatinine. In outpatients, eGFR should be used as a helpful tool in screening for CKD. In inpatients or patients with acute renal failure, eGFR represents the GFR at the moment of the draw and should be used with caution. Performed By: #### C BCDIF, [id number], CMET, FT4, TSH, LIPID #### Unless otherwise noted, all testing performed by [place] [address] CLIA: [id number] Motorcycle Maker: Ashkan Puente M.D. Glucose 75 mg/dL Invalid Interpretation Code 70 - 99 mg/dL [facility] Glucose mass conc 75 mg/dL Normal 70-99 [facility] Comment on above: Result Comment: This test result might be falsely depressed or falsely elevated on samples drawn from patients taking Sulfasalazine and Sulfapyridine. Venipuncture should occur prior to taking either of these drugs. Performed By: #### C BCDIF, [id number], CMET, FT4, TSH, LIPID #### Unless otherwise noted, all testing performed by [place] [address] CLIA: [id number] Motorcycle Maker: Ashkan Puente M.D. Potassium 3.9 mmol/L Normal 3.5-5.1 [facility] Comment on above: Performed By: #### C BCDIF, [id number], CMET, FT4, TSH, LIPID #### Unless otherwise noted, all testing performed by [place] [address] CLIA: [id number] Motorcycle Maker: Ashkan Puente M.D. Protein 7.7 g/dL Normal 6.0-8.0 [facility] Comment on above: Performed By: #### C BCDIF, [id number], CMET, FT4, TSH, LIPID #### Unless otherwise noted, all testing performed by [place] [address] CLIA: [id number] Motorcycle Maker: Ashkan Puente M.D. Sodium 142 mmol/L Normal 135-145 [facility] Comment on above: Performed By: #### C BCDIF, [id number], CMET, FT4, TSH, LIPID #### Unless otherwise noted, all testing performed by [place] [address] CLIA: [id number] Motorcycle Maker: Ashkan Puente M.D. Urea nitrogen 12 mg/dL Normal 8-25 [facility] Comment on above: Performed By: #### C BCDIF, [id number], CMET, FT4, TSH, LIPID #### Unless otherwise noted, all testing performed by [place] [address] CLIA: [id number] Motorcycle Maker: Ashkan Puente M.D. Urine, bilirubin presence 0.1 mg/dL Low 0.3 - 1.2 mg/dL [facility] Lipid Panelon 08-14-2017 Cholesterol 275 mg/dL High 100-199 [facility] Comment on above: Performed By: #### C BCDIF, [id number], CMET, FT4, TSH, LIPID #### Unless otherwise noted, all testing performed by [place] [address] CLIA: [id number] Motorcycle Maker: Ashkan Puente M.D. Cholesterol in VLDL mass conc 72 mg/dL High 5-40 [facility] Comment on above: Performed By: #### C BCDIF, [id number], CMET, FT4, TSH, LIPID #### Unless otherwise noted, all testing performed by [place] [address] CLIA: [id number] Motorcycle Maker: Ashkan Puente M.D. Cholesterol to HDL Ratio 4.8 {ratio} Normal 3.2-5.0 [facility] Comment on above: Result Comment: Osbaldo reyes Coronary Heart Disease Risk Factor (CHDRF): Average risk= 4.4 1/2 Average risk= 3.3 2 times Average risk= 7.1 Performed By: #### C BCDIF, [id number], CMET, FT4, TSH, LIPID #### Unless otherwise noted, all testing performed by [place] [address] CLIA: [id number] Motorcycle Maker: Ashkan Puente M.D. HDL Cholesterol 58 mg/dL Normal 40-59 [facility] Comment on above: Performed By: #### C BCDIF, [id number], CMET, FT4, TSH, LIPID #### Unless otherwise noted, all testing performed by [place] [address] CLIA: [id number] Motorcycle Maker: Ashkan Puente M.D. LDL Cholesterol 145 mg/dL Normal 10-150 [facility] Comment on above: Performed By: #### C BCDIF, [id number], CMET, FT4, TSH, LIPID #### Unless otherwise noted, all testing performed by [place] [address] CLIA: [id number] Motorcycle Maker: Ashkan Puente M.D. Triglyceride 359 mg/dL High 25-120 [facility] Comment on above: Performed By: #### C BCDIF, [id number], CMET, FT4, TSH, LIPID #### Unless otherwise noted, all testing performed by [place] [address] CLIA: [id number] Motorcycle Maker: Ashkan Puente M.D. VLDL 72 mg/dL High 5 - 40 mg/dL [facility] MRI LUMBAR SPINE W/O CONTon 08-14-2017 MRI LUMBAR SPINE W/O CONT Final Report Accession No: [id number] Performed: Aug 14 2017 9:20AM Examination: MRI LUMBAR SPINE W/O CONT TECHNIQUE: Sagittal T1, APOLINAR T2, STIR, axial T1 and T2 images without contrast performed through the lumbar spine. Coronal T2 performed. COMPARISON: None. HISTORY: Chronic low back pain. FINDINGS: The vertebral bodies and disc spaces are normal in height and alignment. The marrow signal is normal. The conus lies at L1 and is normal. Neural foramina are patent. No evidence of central spinal canal stenosis. No evidence of disc herniation. The paraspinal soft tissues are normal. IMPRESSION: 1. No evidence of central spinal canal or foraminal stenosis and no evidence of disc herniation. 2. No evidence of facet arthropathy. Interpreting Physician: LINDA CORTEZ M.D. Trans: mad : cc: Normal [facility] T4, Freeon 08-14-2017 Interpretation and review of laboratory results Abnormal Invalid Interpretation Code [facility] Thyroxine (T4) free 0.3 ng/dL Low 0.76-1.79 [facility] Comment on above: Result Comment: Samp les from patients routinely receiving high dose biotin therapy (100-300 mg/day) may show falsely decreased results. Please correlate clinically. Performed By: #### C BCDIF, [id number], CMET, FT4, TSH, LIPID #### Unless otherwise noted, all testing performed by [place] [address] CLIA: [id number] Motorcycle Maker: Ashkan Puente M.D. TSHon 08-14-2017 Thyroid stimulating hormone (TSH) 191.00 uIU/mL High 0.320 - 5.000 [facility] Thyrotropin Qn 191.00 uIU/mL High 0.320-5.00 0 [facility] Comment on above: Result Comment: Samp les from patients routinely receiving high dose biotin therapy (100-300 mg/day) may show falsely decreased results. Please correlate clinically. Performed By: #### C BCDIF, [id number], CMET, FT4, TSH, LIPID #### Unless otherwise noted, all testing performed by [place] [address] CLIA: [id number] Motorcycle Maker: Ashkan Puente M.D. Vitamin D, Total, 25-OHon Vitamin D, 25-Hydroxy, Total 25 ng/mL Low 30 - 100 ng/mL [facility] Anes Post-opon 05-01-2017 [facility] NOTES Normal [facility] Anes Pre-opon 05-01-2017 [facility] NOTES Normal [facility] BRIEF OP NOTon 05-01-2017 [facility] NOTES Normal [facility] OP NOTEon 05-01-[address] [facility] [address] [facility] OR NURSINGon 05-01-2017 [facility] CAC NOTES Normal [facility] CBCon 04-23-2017 ABSOLUTE BAS 0.1 X10 Normal [facility] Comment on above: Result Comment: Test ing performed at [place] [address] Performed By: #### A CBC, CMPF, LIPA2 ####[place] [address] ABSOLUTE EOS 0.30 X10 Normal [facility] Comment on above: Performed By: #### A CBC, CMPF, LIPA2 ####[place] [address] Basophils/100 WBC Auto (Bld) 0.8 % Normal 0.0-2.0 [facility] Comment on above: Performed By: #### A CBC, CMPF, LIPA2 ####[place] [address] DTYPE AUTO DIFF Normal [facility] Comment on above: Performed By: #### A CBC, CMPF, LIPA2 ####[place] [address] Eosinophils/100 leukocytes 3.5 % Normal 0.0-11.0 [facility] Comment on above: Performed By: #### A CBC, CMPF, LIPA2 ####Testing performed at [place] [id number] Lymphocytes 2.30 X10 Normal [facility] Comment on above: Performed By: #### A CBC, CMPF, LIPA2 ####Testing performed at [place] [id number] Lymphocytes/100 leukocytes 31.1 % Normal 20.0-55.0 [facility] Comment on above: Performed By: #### A CBC, CMPF, LIPA2 ####Testing performed at [place] [id number] Monocytes 0.4 X10 Normal [facility] Comment on above: Performed By: #### A CBC, CMPF, LIPA2 ####[place] [address] Monocytes/100 leukocytes 5.1 % Normal 0.0-10.0 [facility] Comment on above: Performed By: #### A CBC, CMPF, LIPA2 ####[place] [address] Neutrophils 4.4 x10 Normal 1.0-7.0 [facility] Comment on above: Performed By: #### A CBC, CMPF, LIPA2 ####[place] [address] Neutrophils/100 leukocytes 59.5 % Normal 37.0-75.0 [facility] Comment on above: Performed By: #### A CBC, CMPF, LIPA2 ####[place] [address] Erythrocyte distribution width Auto Ratio (RBC) 13.5 % Normal 11.5-14.5 [facility] Comment on above: Performed By: #### A CBC, CMPF, LIPA2 ####[place] [address] Erythrocytes (RBC) 4.21 /cmm Normal 4.0-5.4 [facility] Comment on above: Performed By: #### A CBC, CMPF, LIPA2 ####[place] [address] Hematocrit (HCT) 35.7 % Low 36.0-48.0 [facility] Comment on above: Performed By: #### A CBC, CMPF, LIPA2 ####[place] [address] Hemoglobin mass conc (Bld) 12.2 g/dL Normal 12.0-16.0 [facility] Comment on above: Performed By: #### A CBC, CMPF, LIPA2 ####Testing performed at [facility] [place] [id number] MCH 28.9 pg Normal 26.0-35.0 [facility] Comment on above: Performed By: #### A CBC, CMPF, LIPA2 ####Testing performed at [place] [id number] MCHC mass conc (RBC) 34.1 g/dL Normal 27.0-37.0 [facility] Comment on above: Performed By: #### A CBC, CMPF, LIPA2 ####[place] [address] MCV 84.7 fL Normal 80.0-100.0 [facility] Comment on above: Performed By: #### A CBC, CMPF, LIPA2 ####[place] [address] Platelet mean volume (PMV) 6.6 fL Low 7.4-11.0 [facility] Comment on above: Performed By: #### A CBC, CMPF, LIPA2 ####[place] [address] Platelets 404 /cmm High 130.0-400. 0 [facility] Comment on above: Performed By: #### A CBC, CMPF, LIPA2 ####[place] [address] WBC (Leukocytes) 7.4 /cmm Normal 3.6-11.0 [facility] Comment on above: Performed By: #### A CBC, CMPF, LIPA2 ####Testing performed at [place] [id number] CMP FASTINGon 04-23-2017 A:G RATIO 1.2 RATIO Low 1.3-2.2 [facility] Comment on above: Performed By: #### A CBC, CMPF, LIPA2 ####Testing performed at [place] [id number] Alanine aminotransferase (ALT) 29 U/L Normal 9-52 [facility] Comment on above: Performed By: #### A CBC, CMPF, LIPA2 ####Testing performed at [place] [id number] Albumin 3.7 G/dl Normal 3.5-5.0 [facility] Comment on above: Performed By: #### A CBC, CMPF, LIPA2 ####Testing performed at [place] [id number] Alkaline phosphatase (ALP) 92 U/L Normal 38-126 [facility] Comment on above: Performed By: #### A CBC, CMPF, LIPA2 ####Testing performed at [place] [id number] Aspartate aminotransferase (AST) 29 U/L Normal 14-36 [facility] Comment on above: Performed By: #### A CBC, CMPF, LIPA2 ####[place] [address] Bilirubin (total) 0.3 mg/dL Normal 0.2-1.3 [facility] Comment on above: Performed By: #### A CBC, CMPF, LIPA2 ####[place] [address] BUN (urea nitrogen) 12 mg/dL Normal 7-20 [facility] Comment on above: Performed By: #### A CBC, CMPF, LIPA2 ####[place] [address] Calcium 8.8 mg/dL Normal 8.4-10.2 [facility] Comment on above: Performed By: #### A CBC, CMPF, LIPA2 ####Testing performed at [place] [id number] Chloride 104 mmol/L Normal 98-107 [facility] Comment on above: Performed By: #### A CBC, CMPF, LIPA2 ####[place] [address] CO2 31 mmol/L High 22-30 [facility] Comment on above: Performed By: #### A CBC, CMPF, LIPA2 ####[place] [address] Creatinine 0.7 mg/dL Normal 0.7-1.2 [facility] Comment on above: Performed By: #### A CBC, CMPF, LIPA2 ####[place] [address] eGFR (non-black) mL/min/{1.73_m2} Normal [facility] Comment on above: Performed By: #### A CBC, CMPF, LIPA2 ####[place] [address] eGFR (non-black) Average GFR for 40-4 9 years old = 99. Normal [facility] Comment on above: Result Comment: Photographic Engineer kath Kidney disease, GFR = <60.Kidney failure, GFR = <15.The GFR estimate is not adjusted for extreme body surface area or acute process, nor has it been validated for women or ethnic groups other than and .Testing performed at [place] [address] Performed By: #### A CBC, CMPF, LIPA2 ####[place] [address] Glucose mass conc 73 mg/dL Normal 70-100 [facility] Comment on above: Result Comment: NORM AL <100 mg/dLPREDIABETES 101-126 mg/dLDIABETES 126 mg/dL or higher Performed By: #### A CBC, CMPF, LIPA2 ####[place] [address] Potassium molar conc 3.8 mmol/L Normal 3.5-5.1 [facility] Comment on above: Performed By: #### A CBC, CMPF, LIPA2 ####[place] [address] Protein 6.8 g/dL Normal 6.3-8.2 [facility] Comment on above: Performed By: #### A CBC, CMPF, LIPA2 ####[place] [address] Sodium 142 mmol/L Normal 137-145 [facility] Comment on above: Performed By: #### A CBC, CMPF, LIPA2 ####[place] [address] ED PROVIDERon 04-23-2017 [facility] NOTES Normal [facility] LIPASE,SERUMon 04-23-2017 LIPASE,SERUM 49 U/L Normal 23-300 [facility] Comment on above: Result Comment: Test ing performed at [place] [address] Performed By: #### A CBC, CMPF, LIPA2 ####[place] [address] URINE MACROSCOPICon 04-23-19 18 Bilirubin Ql (U) Negative Normal NEGATIVE [facility] Comment on above: Performed By: #### U MAC ####[place] [address] URINE HEMOGLOBIN Negative Normal NEGATIVE [facility] Comment on above: Performed By: #### U MAC ####[place] [address] URINE KETONE Negative Normal NEGATIVE [facility] Comment on above: Performed By: #### U MAC ####[place] [address] URINE LEUKOTEST Negative Normal NEGATIVE [facility] Comment on above: Result Comment: Test ing performed at [place] [address] Performed By: #### U MAC ####[place] [address] URINE NITRATES Negative Normal NEGATIVE [facility] Comment on above: Performed By: #### U MAC ####[place] [address] URINE SPEC GRAVITY 1.015 Normal 1.010-1.0 2 5 [facility] Comment on above: Performed By: #### U MAC ####[place] [address] URINE TOTAL PROTEIN Negative Normal NEGATIVE [facility] Comment on above: Performed By: #### U MAC ####[place] [address] Urine, clarity CLEAR Abnormal CLEAR [facility] Comment on above: Performed By: #### U MAC ####[place] [address] Urine, color YELLOW Normal YELLOW [facility] Comment on above: Performed By: #### U MAC ####[place] [address] Urine, glucose presence Negative Normal NEGATIVE [facility] Comment on above: Performed By: #### U MAC ####[place] [address] Urine, pH 6.5 [pH] Normal 5.0-7.0 [facility] Comment on above: Performed By: #### U MAC ####[place] [address] Urine, urobilinogen 0.2 mg/dl Normal 0.2-1.0 [facility] Comment on above: Performed By: #### U MAC ####[place] [address] CBC and Differentialon 02-11 Basophils Auto #/vol (Bld) 0.1 K/mcL Invalid Interpretation Code 0 - 0.2 [facility] Basophils/100 WBC Auto (Bld) 0.9 % Invalid Interpretation Code [facility] Eosinophils 0.3 K/mcL Invalid Interpretation Code 0 - 0.5 [facility] Eosinophils/100 leukocytes 5.2 % Invalid Interpretation Code [facility] Erythrocyte distribution width Auto Ratio (RBC) 12.8 % Invalid Interpretation Code 10 - 14.4 % [facility] Erythrocytes (RBC) 4.20 M/mcL Invalid Interpretation Code 3.7 - 5.0 [facility] Hematocrit (HCT) 36.3 % Invalid Interpretation Code 34.4 - 44.8 % [facility] Hemoglobin mass conc (Bld) 12.4 g/dL Invalid Interpretation Code 11.6 - 15.4 g/dL [facility] Lymphocytes 2.1 K/mcL Invalid Interpretation Code 1.0 - 3.7 [facility] Lymphocytes/100 leukocytes 31.5 % Invalid Interpretation Code [facility] MCH 29.5 pg Invalid Interpretation Code 27.9 - 33.9 pg [facility] MCHC mass conc (RBC) 34.1 g/dL Invalid Interpretation Code 33.1 - 35.1 g/dL [facility] MCV 86.5 fL Invalid Interpretation Code 82.6 - 98.9 [facility] Monocytes 0.3 K/mcL Invalid Interpretation Code 0.1 - 0.6 [facility] Monocytes/100 leukocytes 3.9 % Invalid Interpretation Code [facility] Neutrophils 3.9 K/mcL Invalid Interpretation Code 1.2 - 6.9 [facility] Platelet mean volume (PMV) 7.9 fL Invalid Interpretation Code 7.0 - 10.6 [facility] Platelets 392 K/mcL Invalid Interpretation Code 162 - 402 [facility] Segmented Neut 58.5 % Invalid Interpretation Code [facility] WBC (Leukocytes) 6.6 K/mcL Invalid Interpretation Code 3.4 - 10.6 [facility] T4, Freeon 02-11-2017 Thyroxine (T4) free 1.0 ng/dL Invalid Interpretation Code 0.76 - 1.79 ng/dL [facility] Comment on above: Samples from patient s routinely receiving high dose biotin therapy (100-300 mg/day) may show falsely decreased results. Please correlate clinically. TSHon 02-11-2017 Thyroid stimulating hormone (TSH) 0.67 uIU/mL Invalid Interpretation Code 0.320 - 5.000 [facility] Comment on above: Samples from patient s routinely receiving high dose biotin therapy (100-300 mg/day) may show falsely decreased results. Please correlate clinically. Vitamin B12on 02-11-2017 Cobalamins (Vitamin B12) 306 pg/mL Invalid Interpretation Code 193 - 986 pg/mL [facility] Vitamin D, Total, 25-OHon Interpretation and review of laboratory results Abnormal Invalid Interpretation Code [facility] Vitamin D, 25-Hydroxy, Total 18 ng/mL Low 30 - 100 ng/mL [facility] Comment on above: Please note that Flu orescein which is used in angiography has been shown to falsely depress the results of TSH with our current assay. Evidence suggests that patients undergoing fluorescein dye angiography can retain small amounts of fluorescein in the body for up to 48 to 72 hours post-treatment. In the cases of patients with renal insufficiency, retention could be much longer. Samples should be resubmitted post fluorescein clearance to ensure there is no interference with the TSH test result. Comprehensive Metabolic Pane nima 11-14-2016 Alanine aminotransferase (ALT) 21 U/L Invalid Interpretation Code 14 - 65 U/L [facility] Albumin 3.3 g/dL Invalid Interpretation Code 3.2 - 5.2 g/dL [facility] Alkaline phosphatase (ALP) 102 U/L Invalid Interpretation Code 40 - 150 U/L [facility] Aspartate aminotransferase (AST) 19 U/L Invalid Interpretation Code 0 - 45 U/L [facility] Calcium 8.6 mg/dL Invalid Interpretation Code 8.4 - 10.2 mg/dL [facility] Chloride 105 mmol/L Invalid Interpretation Code 98 - 108 mmol/L [facility] CO2 26 mmol/L Invalid Interpretation Code 21 - 32 mmol/L [facility] Creatinine 0.73 mg/dL Invalid Interpretation Code 0.4 - 1.1 mg/dL [facility] eGFR (black) mL/min/{1.73_m2} Invalid Interpretation Code ml/min/1.7 3sq.m [facility] eGFR (non-black) mL/min/{1.73_m2} Invalid Interpretation Code ml/min/1.7 3sq.m [facility] Glucose 88 mg/dL Invalid Interpretation Code 70 - 99 mg/dL [facility] Interpretation and review of laboratory results Abnormal Invalid Interpretation Code [facility] Potassium 3.6 mmol/L Invalid Interpretation Code 3.5 - 5.1 mmol/L [facility] Protein 7.4 g/dL Invalid Interpretation Code 6 - 8 g/dL [facility] Sodium 140 mmol/L Invalid Interpretation Code 135 - 145 mmol/L [facility] Urea nitrogen 15 mg/dL Invalid Interpretation Code 8 - 25 mg/dL [facility] Urine, bilirubin presence 0.2 mg/dL Low 0.3 - 1.2 mg/dL [facility] T4, Freeon 11-14-2016 Thyroxine (T4) free 0.9 ng/dL Invalid Interpretation Code 0.76 - 1.79 ng/dL [facility] TSHon 11-14-2016 Thyroid stimulating hormone (TSH) 1.17 uIU/mL Invalid Interpretation Code 0.320 - 5.000 [facility] Vitamin D, Total, 25-OHon Vitamin D, 25-Hydroxy, Total 27.4 ng/mL Invalid Interpretation Code [facility] Vital Signs Date Time Vital Sign Value Performing Clinician Facility 09-29-2024 09:03-0400 Body height 142.[address] Bartolo Harrington MD Work Phone: [phone] [place] [address] 09-29-2024 09:03-0400 Body mass index (BMI) [Ratio] 27.3 kg/m2 Dr. Bartolo Harrington MD Work Phone: 1(510)[phone] [place] [address] 09-29-2024 09:03-0400 Body temperature 98.4 [degF] Dr. Bartolo Harrington MD Work Phone: 1(245)[phone] [place] [address] 09-29-2024 09:03-0400 Body weight 55.[address] Bartolo Harrington MD Work Phone: 2(470)[phone] [place] [address] 09-29-2024 09:03-0400 Diastolic blood pressure 80 mm[Hg] Dr. Bartolo Harrington MD Work Phone: 2(498)[phone] [place] [address] 09-29-2024 09:03-0400 Heart rate 89 /min Dr. Bartolo Harrington MD Work Phone: 7(375)[phone] [place] [address] 09-29-2024 09:03-0400 Respiratory rate 15 /min Dr. Bartolo Harrington MD Work Phone: 0(692)[phone] [place] [address] 09-29-2024 09:03-0400 SaO2% (BldA) [Mass fraction] 97 % Dr. Bartolo Harrington MD Work Phone: [facility] 09-29-2024 09:03-0400 Systolic blood pressure 122 mm[Hg] Dr. Bartolo Harrington MD Work Phone: 1(310)[phone] [place] [address] 05-23-2024 08:26-0400 Body height 139.7 cm Aury Mera MD Work Phone: [facility] 05-23-2024 08:26-0400 Body mass index (BMI) [Ratio] 29.08 kg/m2 Aury Mera MD Work Phone: [facility] 05-23-2024 08:26-0400 Body temperature 97.59 [degF] Aury Mera MD Work Phone: [facility] 05-23-2024 08:26-0400 Body weight 56.74 kg Aury Mera MD Work Phone: [facility] 05-23-2024 08:26-0400 Diastolic blood pressure 79 mm[Hg] Aury Mera MD Work Phone: [facility] 05-23-2024 08:26-0400 Heart rate 67 /min Aury Mera MD Work Phone: [facility] 05-23-2024 08:26-0400 Respiratory rate 16 /min Aury Mera MD Work Phone: [facility] 05-23-2024 08:26-0400 SaO2% (BldA) [Mass fraction] 96 % Aury Mera MD Work Phone: [facility] 05-23-2024 08:26-0400 Systolic blood pressure 113 mm[Hg] Aury Mera MD Work Phone: [facility] 04-01-2024 11:17-0500 Body height 139.7 cm Yary Gudino SENIOR COMPUTER SPECIALIST Work Phone: [facility] 04-01-2024 11:17-0500 Body mass index (BMI) [Ratio] 28.82 kg/m2 Yary Gudino SENIOR COMPUTER SPECIALIST Work Phone: [facility] 04-01-2024 11:17-0500 Body temperature 98.01 [degF] Yary Gudino SENIOR COMPUTER SPECIALIST Work Phone: [facility] 04-01-2024 11:17-0500 Body weight 56.25 kg Yary Gudino SENIOR COMPUTER SPECIALIST Work Phone: [facility] 04-01-2024 11:17-0500 Diastolic blood pressure 85 mm[Hg] Yary Gudino SENIOR COMPUTER SPECIALIST Work Phone: [facility] 04-01-2024 11:17-0500 Heart rate 81 /min Yary Gudino SENIOR COMPUTER SPECIALIST Work Phone: [facility] 04-01-2024 11:17-0500 Respiratory rate 16 /min Yary Gudino SENIOR COMPUTER SPECIALIST Work Phone: [facility] 04-01-2024 11:17-0500 SaO2% (BldA) [Mass fraction] 95 % Yary Gudino SENIOR COMPUTER SPECIALIST Work Phone: [facility] 04-01-2024 11:17-0500 Systolic blood pressure 122 mm[Hg] Yary Gudino SENIOR COMPUTER SPECIALIST Work Phone: [facility] 02-08-2024 11:42-0500 Diastolic blood pressure 82 mm[Hg] Boo Swann MD Work Phone: [facility] 02-08-2024 11:42-0500 Heart rate 87 /min Boo Swann MD Work Phone: [facility] 02-08-2024 11:42-0500 SaO2% (BldA) [Mass fraction] 97 % Boo Swann MD Work Phone: [facility] 02-08-2024 11:42-0500 Systolic blood pressure 122 mm[Hg] Boo Sawnn MD Work Phone: [facility] 12-25-2023 08:58-0400 Body height 139.7 cm Karena Reno MD Work Phone: [facility] 12-25-2023 08:58-0400 Body mass index (BMI) [Ratio] 28.22 kg/m2 Karena Reno MD Work Phone: [facility] 12-25-2023 08:58-0400 Body weight 55.07 kg Karena Reno MD Work Phone: [facility] 11-23-2023 08:37-0400 Body height 139.7 cm Aury Mera MD Work Phone: [facility] 11-23-2023 08:37-0400 Body mass index (BMI) [Ratio] 27.59 kg/m2 Aury Mera MD Work Phone: [facility] 11-23-2023 08:37-0400 Body temperature 98.1 [degF] Aury Mera MD Work Phone: [facility] 11-23-2023 08:37-0400 Body weight 53.84 kg Aury Mera MD Work Phone: [facility] 11-23-2023 08:37-0400 Diastolic blood pressure 82 mm[Hg] Aury Mera MD Work Phone: [facility] 11-23-2023 08:37-0400 Heart rate 78 /min Aury Mera MD Work Phone: [facility] 11-23-2023 08:37-0400 Respiratory rate 16 /min Aury Mera MD Work Phone: [facility] 11-23-2023 08:37-0400 SaO2% (BldA) [Mass fraction] 97 % Aury Mera MD Work Phone: [facility] 11-23-2023 08:37-0400 Systolic blood pressure 127 mm[Hg] Aury Mera MD Work Phone: [facility] 08-24-2023 09:00-0400 Body temperature 98.71 [degF] Mac Preston PA-C Work Phone: [facility] 08-24-2023 09:00-0400 Diastolic blood pressure 76 mm[Hg] Mac Preston PA-C Work Phone: [facility] 08-24-2023 09:00-0400 Heart rate 76 /min Mac Preston PA-C Work Phone: [facility] 08-24-2023 09:00-0400 SaO2% (BldA) [Mass fraction] 97 % Mac Preston PA-C Work Phone: [facility] 08-24-2023 09:00-0400 Systolic blood pressure 117 mm[Hg] Mac Preston PA-C Work Phone: [facility] 05-21-2023 08:22-0400 Body height 139.7 cm Aury Mera MD Work Phone: [facility] 05-21-2023 08:22-0400 Body mass index (BMI) [Ratio] 28.75 kg/m2 Aury Mera MD Work Phone: [facility] 05-21-2023 08:22-0400 Body temperature 98.4 [degF] Aury Mera MD Work Phone: [facility] 05-21-2023 08:22-0400 Body weight 56.11 kg Aury Mera MD Work Phone: [facility] 05-21-2023 08:22-0400 Diastolic blood pressure 89 mm[Hg] Aury Mera MD Work Phone: [facility] 05-21-2023 08:22-0400 Heart rate 83 /min Aury Mera MD Work Phone: [facility] 05-21-2023 08:22-0400 Respiratory rate 16 /min Aury Mera MD Work Phone: [facility] 05-21-2023 08:22-0400 SaO2% (BldA) [Mass fraction] 97 % Aury Mera MD Work Phone: [facility] 05-21-2023 08:22-0400 Systolic blood pressure 128 mm[Hg] Aury Mera MD Work Phone: [facility] 04-20-2023 07:43-0500 Body height 139.7 cm Marta Nina CNP Work Phone: [facility] 04-20-2023 07:43-0500 Body mass index (BMI) [Ratio] 28.82 kg/m2 Marta Nina CNP Work Phone: [facility] 04-20-2023 07:43-0500 Body weight 56.25 kg Marta Nina SENIOR COMPUTER SPECIALIST Work Phone: [facility] 04-20-2023 07:43-0500 Diastolic blood pressure 91 mm[Hg] Marta Nina SENIOR COMPUTER SPECIALIST Work Phone: [facility] 04-20-2023 07:43-0500 Heart rate 67 /min Marta Nina SENIOR COMPUTER SPECIALIST Work Phone: [facility] 04-20-2023 07:43-0500 SaO2% (BldA) [Mass fraction] 96 % Marta Nina SENIOR COMPUTER SPECIALIST Work Phone: [facility] 04-20-2023 07:43-0500 Systolic blood pressure 153 mm[Hg] Marta Nina SENIOR COMPUTER SPECIALIST Work Phone: [facility] 04-15-2023 08:34-0500 Diastolic blood pressure 103 mm[Hg] Sophia William MD Work Phone: [facility] 04-15-2023 08:34-0500 Heart rate 77 /min Sophia William MD Work Phone: [facility] 04-15-2023 08:34-0500 SaO2% (BldA) [Mass fraction] 94 % Sophia William MD Work Phone: [facility] 04-15-2023 08:34-0500 Systolic blood pressure 166 mm[Hg] Sophia William MD Work Phone: [facility] 01-13-2023 13:04-0500 Diastolic blood pressure 78 mm[Hg] Christina Browni SENIOR COMPUTER SPECIALIST Work Phone: [facility] 01-13-2023 13:04-0500 Heart rate 73 /min Christina Allison SENIOR COMPUTER SPECIALIST Work Phone: [facility] 01-13-2023 13:04-0500 SaO2% (BldA) [Mass fraction] 97 % Christina Allison SENIOR COMPUTER SPECIALIST Work Phone: [facility] 01-13-2023 13:04-0500 Systolic blood pressure 116 mm[Hg] Christina Allison SENIOR COMPUTER SPECIALIST Work Phone: [facility] 01-13-2023 07:36-0500 Diastolic blood pressure 69 mm[Hg] Albina Sunny SENIOR COMPUTER SPECIALIST Work Phone: [facility] 01-13-2023 07:36-0500 Heart rate 78 /min Albina Correa SENIOR COMPUTER SPECIALIST Work Phone: [facility] 01-13-2023 07:36-0500 Respiratory rate 16 /min Albina Correa SENIOR COMPUTER SPECIALIST Work Phone: [facility] 01-13-2023 07:36-0500 SaO2% (BldA) [Mass fraction] 96 % Albina Correa SENIOR COMPUTER SPECIALIST Work Phone: [facility] 01-13-2023 07:36-0500 Systolic blood pressure 101 mm[Hg] Albina Sunny SENIOR COMPUTER SPECIALIST Work Phone: [facility] 11-13-2022 09:16-0400 Body height 139.7 cm Aury Mera MD Work Phone: [facility] 11-13-2022 09:16-0400 Body mass index (BMI) [Ratio] 29.47 kg/m2 Aury Mera MD Work Phone: [facility] 11-13-2022 09:16-0400 Body temperature 98.29 [degF] Aury Mera MD Work Phone: [facility] 11-13-2022 09:16-0400 Body weight 57.52 kg Aury Mera MD Work Phone: [facility] 11-13-2022 09:16-0400 Diastolic blood pressure 78 mm[Hg] Aury Mera MD Work Phone: [facility] 11-13-2022 09:16-0400 Heart rate 75 /min Aury Mera MD Work Phone: [facility] 11-13-2022 09:16-0400 Respiratory rate 16 /min Aury Mera MD Work Phone: [facility] 11-13-2022 09:16-0400 SaO2% (BldA) [Mass fraction] 95 % Aury Mera MD Work Phone: [facility] 11-13-2022 09:16-0400 Systolic blood pressure 115 mm[Hg] Aury Mera MD Work Phone: [facility] 05-15-2022 07:31-0500 Body height 139.7 cm Aury Mera MD Work Phone: [facility] 05-15-2022 07:31-0500 Body mass index (BMI) [Ratio] 28.96 kg/m2 Aury Mera MD Work Phone: [facility] 05-15-2022 07:31-0500 Body temperature 98.6 [degF] Aury Mera MD Work Phone: [facility] 05-15-2022 07:31-0500 Body weight 56.52 kg Aury Mera MD Work Phone: [facility] 05-15-2022 07:31-0500 Diastolic blood pressure 78 mm[Hg] Aury Mera MD Work Phone: [facility] 05-15-2022 07:31-0500 Heart rate 93 /min Aury Mera MD Work Phone: [facility] 05-15-2022 07:31-0500 Respiratory rate 16 /min Aury Mera MD Work Phone: [facility] 05-15-2022 07:31-0500 SaO2% (BldA) [Mass fraction] 97 % Aury Mera MD Work Phone: [facility] 05-15-2022 07:31-0500 Systolic blood pressure 115 mm[Hg] Aury Mera MD Work Phone: [facility] 04-10-2022 08:45-0500 Body height 139.7 cm Hugh Calles MD Work Phone: [facility] 04-10-2022 08:45-0500 Body mass index (BMI) [Ratio] 28.36 kg/m2 Hugh Calles MD Work Phone: [facility] 04-10-2022 08:45-0500 Body weight 55.34 kg Hugh Calles MD Work Phone: [facility] 04-10-2022 08:45-0500 Diastolic blood pressure 85 mm[Hg] Hugh Calles MD Work Phone: [facility] 04-10-2022 08:45-0500 Heart rate 86 /min Hugh Calles MD Work Phone: [facility] 04-10-2022 08:45-0500 Respiratory rate 16 /min Hugh Calles MD Work Phone: [facility] 04-10-2022 08:45-0500 SaO2% (BldA) [Mass fraction] 98 % Hugh Calles MD Work Phone: [facility] 04-10-2022 08:45-0500 Systolic blood pressure 126 mm[Hg] Hugh Calles MD Work Phone: [facility] 04-08-2022 09:38-0500 Body height 139.7 cm Tierneybert Saleem SENIOR COMPUTER SPECIALIST Work Phone: [facility] 04-08-2022 09:38-0500 Body mass index (BMI) [Ratio] 29.05 kg/m2 Tierney Saleem SENIOR COMPUTER SPECIALIST Work Phone: [facility] 04-08-2022 09:38-0500 Body weight 56.7 kg Tierney Saleem SENIOR COMPUTER SPECIALIST Work Phone: [facility] 04-08-2022 09:38-0500 Diastolic blood pressure 81 mm[Hg] Tierneybert Saleem SENIOR COMPUTER SPECIALIST Work Phone: [facility] 04-08-2022 09:38-0500 Heart rate 95 /min Tierney Saleem SENIOR COMPUTER SPECIALIST Work Phone: [facility] 04-08-2022 09:38-0500 SaO2% (BldA) [Mass fraction] 98 % Tierneybert Saleem SENIOR COMPUTER SPECIALIST Work Phone: [facility] 04-08-2022 09:38-0500 Systolic blood pressure 118 mm[Hg] Tierney Saleem SENIOR COMPUTER SPECIALIST Work Phone: [facility] 10-14-2021 08:12-0400 Body height 139.7 cm Hugh Calles MD Work Phone: [facility] 10-14-2021 08:12-0400 Body mass index (BMI) [Ratio] 29.05 kg/m2 Hugh Calles MD Work Phone: [facility] 10-14-2021 08:12-0400 Body weight 56.7 kg Hugh Calles MD Work Phone: [facility] 10-14-2021 08:12-0400 Diastolic blood pressure 73 mm[Hg] Hugh Calles MD Work Phone: [facility] 10-14-2021 08:12-0400 Heart rate 82 /min Hugh Calles MD Work Phone: [facility] 10-14-2021 08:12-0400 Respiratory rate 16 /min Hugh Calles MD Work Phone: [facility] 10-14-2021 08:12-0400 SaO2% (BldA) [Mass fraction] 97 % Hugh Calles MD Work Phone: [facility] 10-14-2021 08:12-0400 Systolic blood pressure 106 mm[Hg] Hugh Calles MD Work Phone: [facility] 08-13-2021 16:03-0400 Body height 139.7 cm Negro Landrum MD Work Phone: [facility] 08-13-2021 16:03-0400 Body mass index (BMI) [Ratio] 30.12 kg/m2 Negro Landrum MD Work Phone: [facility] 08-13-2021 16:03-0400 Body weight 58.79 kg Negro Landrum MD Work Phone: [facility] 08-13-2021 16:03-0400 Diastolic blood pressure 82 mm[Hg] Negro Landrum MD Work Phone: [facility] 08-13-2021 16:03-0400 Heart rate 89 /min Negro Landrum MD Work Phone: [facility] 08-13-2021 16:03-0400 SaO2% (BldA) [Mass fraction] 98 % Negro Landrum MD Work Phone: [facility] 08-13-2021 16:03-0400 Systolic blood pressure 118 mm[Hg] Negro Landrum MD Work Phone: [facility] 07-09-2021 08:52-0400 Diastolic blood pressure 83 mm[Hg] Aury Mera MD Work Phone: [facility] 07-09-2021 08:52-0400 Systolic blood pressure 128 mm[Hg] Aury Mera MD Work Phone: [facility] 07-09-2021 08:45-0400 Body height 139.7 cm Aury Mera MD Work Phone: [facility] 07-09-2021 08:45-0400 Body mass index (BMI) [Ratio] 30.8 kg/m2 Aury Mera MD Work Phone: [facility] 07-09-2021 08:45-0400 Body temperature 98.2 [degF] Aury Mera MD Work Phone: [facility] 07-09-2021 08:45-0400 Body weight 60.1 kg Aury Mera MD Work Phone: [facility] 07-09-2021 08:45-0400 Heart rate 84 /min Aury Mera MD Work Phone: [facility] 07-09-2021 08:45-0400 Respiratory rate 16 /min Aury Mera MD Work Phone: [facility] 07-09-2021 08:45-0400 SaO2% (BldA) [Mass fraction] 98 % Aury Mera MD Work Phone: [facility] 01-28-2021 16:07-0500 Body height 139.7 cm Aury Mera MD Work Phone: [facility] 01-28-2021 16:07-0500 Body mass index (BMI) [Ratio] 30.08 kg/m2 Aury Mera MD Work Phone: [facility] 01-28-2021 16:07-0500 Body temperature 98.4 [degF] Aury Mera MD Work Phone: [facility] 01-28-2021 16:07-0500 Body weight 58.7 kg Aury Mera MD Work Phone: [facility] 01-28-2021 16:07-0500 Diastolic blood pressure 86 mm[Hg] Aury Mera MD Work Phone: [facility] 01-28-2021 16:07-0500 Heart rate 79 /min Aury Mera MD Work Phone: [facility] 01-28-2021 16:07-0500 Respiratory rate 16 /min Aury Mera MD Work Phone: [facility] 01-28-2021 16:07-0500 SaO2% (BldA) [Mass fraction] 96 % Aury Mera MD Work Phone: [facility] 01-28-2021 16:07-0500 Systolic blood pressure 131 mm[Hg] Aury Mera MD Work Phone: [facility] 11-20-2020 09:35-0400 Body height 139.7 cm Tavares Stannards SENIOR COMPUTER SPECIALIST Work Phone: [facility] 11-20-2020 09:35-0400 Body mass index (BMI) [Ratio] 29.75 kg/m2 Tavares Carrier Washer SENIOR COMPUTER SPECIALIST Work Phone: [facility] 11-20-2020 09:35-0400 Body weight 58.06 kg Tavares Stannards SENIOR COMPUTER SPECIALIST Work Phone: [facility] 11-20-2020 09:35-0400 Diastolic blood pressure 80 mm[Hg] Tavares Stannards SENIOR COMPUTER SPECIALIST Work Phone: [facility] 11-20-2020 09:35-0400 Heart rate 106 /min Tavares Carrier Washer SENIOR COMPUTER SPECIALIST Work Phone: [facility] 09-14-2021 09:35-0400 Respiratory rate 18 /min Tavares Stannards SENIOR COMPUTER SPECIALIST Work Phone: [facility] 11-20-2020 09:35-0400 SaO2% (BldA) [Mass fraction] 96 % Tavares Stannards SENIOR COMPUTER SPECIALIST Work Phone: [facility] 11-20-2020 09:35-0400 Systolic blood pressure 121 mm[Hg] Tavares Carrier Washer SENIOR COMPUTER SPECIALIST Work Phone: [facility] 11-05-2020 08:53-0400 Body height 139.7 cm David Hawthorne MD Work Phone: [facility] 11-05-2020 08:53-0400 Body mass index (BMI) [Ratio] 31.61 kg/m2 David Hawthorne MD Work Phone: [facility] 11-05-2020 08:53-0400 Body weight 61.69 kg David Hawthorne MD Work Phone: [facility] 11-05-2020 08:53-0400 Diastolic blood pressure 84 mm[Hg] David Hawthorne MD Work Phone: [facility] 11-05-2020 08:53-0400 Heart rate 75 /min David Hawthorne MD Work Phone: [facility] 11-05-2020 08:53-0400 SaO2% (BldA) [Mass fraction] 98 % David Hawthorne MD Work Phone: [facility] 11-05-2020 08:53-0400 Systolic blood pressure 121 mm[Hg] David Hawthorne MD Work Phone: [facility] 10-31-2020 09:04-0400 Body height 139.7 cm Tierney Saleem CNP Work Phone: [facility] 10-31-2020 09:04-0400 Body mass index (BMI) [Ratio] 31.61 kg/m2 Tierney Saleem CNP Work Phone: [facility] 10-31-2020 09:04-0400 Body weight 61.69 kg Tierney Saleem CNP Work Phone: [facility] 10-31-2020 09:04-0400 Diastolic blood pressure 80 mm[Hg] Tierney Saleem SENIOR COMPUTER SPECIALIST Work Phone: [facility] 10-31-2020 09:04-0400 Heart rate 82 /min Tierney Saleem SENIOR COMPUTER SPECIALIST Work Phone: [facility] 10-31-2020 09:04-0400 SaO2% (BldA) [Mass fraction] 99 % Tierney Saleem SENIOR COMPUTER SPECIALIST Work Phone: [facility] 10-31-2020 09:04-0400 Systolic blood pressure 121 mm[Hg] Tierney Saleem SENIOR COMPUTER SPECIALIST Work Phone: [facility] 10-02-2020 09:27-0400 Body height 139.7 cm Tierney Saleem SENIOR COMPUTER SPECIALIST Work Phone: [facility] 10-02-2020 09:27-0400 Body mass index (BMI) [Ratio] 31.38 kg/m2 Tierney Saleem SENIOR COMPUTER SPECIALIST Work Phone: [facility] 10-02-2020 09:27-0400 Body weight 61.24 kg Tierney Saleem SENIOR COMPUTER SPECIALIST Work Phone: [facility] 10-02-2020 09:27-0400 Diastolic blood pressure 79 mm[Hg] Tierney Saleem SENIOR COMPUTER SPECIALIST Work Phone: [facility] 10-02-2020 09:27-0400 Heart rate 78 /min Tierney Saleem SENIOR COMPUTER SPECIALIST Work Phone: [facility] 10-02-2020 09:27-0400 SaO2% (BldA) [Mass fraction] 99 % Tierney Saleem SENIOR COMPUTER SPECIALIST Work Phone: [facility] 10-02-2020 09:27-0400 Systolic blood pressure 113 mm[Hg] Tierney Saleem SENIOR COMPUTER SPECIALIST Work Phone: [facility] 08-07-2020 13:51-0400 Body height 139.7 cm Aury Mera MD Work Phone: [facility] 08-07-2020 13:51-0400 Body mass index (BMI) [Ratio] 31.42 kg/m2 Aury Mera MD Work Phone: [facility] 08-07-2020 13:51-0400 Body temperature 98.01 [degF] Aury Mera MD Work Phone: [facility] 08-07-2020 13:51-0400 Body weight 61.33 kg Aury Mera MD Work Phone: [facility] 08-07-2020 13:51-0400 Diastolic blood pressure 82 mm[Hg] Aury Mera MD Work Phone: [facility] 08-07-2020 13:51-0400 Heart rate 92 /min Aury Mera MD Work Phone: [facility] 08-07-2020 13:51-0400 Respiratory rate 16 /min Aury Mera MD Work Phone: [facility] 08-07-2020 13:51-0400 SaO2% (BldA) [Mass fraction] 97 % Aury Mera MD Work Phone: [facility] 08-07-2020 13:51-0400 Systolic blood pressure 127 mm[Hg] uAry Mera MD Work Phone: [facility] 06-21-2020 11:25-0400 Body Temperature 98.01 [degF] Lora Waldrop [facility] 05-01-2020 09:11-0500 BMI (Body Mass Index) 31.19 kg/m2 [facility] 05-01-2020 09:11-0500 Body Temperature 97.39 [degF] [facility] 05-01-2020 09:11-0500 Body weight 60.87 kg [facility] 05-01-2020 09:11-0500 BP Diastolic 95 mm[Hg] [facility] 05-01-2020 09:11-0500 BP Systolic 138 mm[Hg] [facility] 05-01-2020 09:11-0500 Pulse (Heart Rate) 96 /min [facility] 03-27-2020 13:58-0500 BMI (Body Mass Index) 31.73 kg/m2 [facility] 03-27-2020 13:58-0500 Body Temperature 95.59 [degF] [facility] 03-27-2020 13:58-0500 Body weight 61.92 kg [facility] 03-27-2020 13:58-0500 BP Diastolic 89 mm[Hg] [facility] 03-27-2020 13:58-0500 BP Systolic 128 mm[Hg] [facility] 03-27-2020 13:58-0500 Height 139.7 cm [facility] 03-27-2020 13:58-0500 Pulse (Heart Rate) 93 /min [facility] 03-20-2020 14:39-0500 BMI (Body Mass Index) 30.68 kg/m2 [facility] 03-20-2020 14:39-0500 Body Temperature 99.5 [degF] [facility] 03-20-2020 14:39-0500 Body weight 59.88 kg [facility] 03-20-2020 14:39-0500 BP Diastolic 79 mm[Hg] [facility] 03-20-2020 14:39-0500 BP Systolic 125 mm[Hg] [facility] 03-20-2020 14:39-0500 Height 139.7 cm [facility] 03-20-2020 14:39-0500 Pulse (Heart Rate) 102 /min [facility] 03-15-2020 15:01-0500 BP Diastolic 72 mm[Hg] Keanu Thompson [facility] 03-15-2020 15:01-0500 BP Systolic 112 mm[Hg] [facility]-2020 15:01-0500 Pulse (Heart Rate) 99 /min [facility] 03-15-2020 15:01-0500 Pulse Oximetry 100 % [facility] 03-15-2020 15:01-0500 Respiratory Rate 16 /min [facility] 03-15-2020 12:09-0500 Body Temperature 98.01 [degF] [facility] 03-06-2020 10:16-0500 BMI (Body Mass Index) 31.14 kg/m2 [facility] 03-06-2020 10:16-0500 Body Temperature 98.8 [degF] [facility] 03-06-2020 10:16-0500 Body weight 60.78 kg [facility] 03-06-2020 10:16-0500 BP Diastolic 84 mm[Hg] [facility] 03-06-2020 10:16-0500 BP Systolic 131 mm[Hg] [facility] 03-06-2020 10:16-0500 Height 139.7 cm [facility] 03-06-2020 10:16-0500 Pulse (Heart Rate) 101 /min [facility] 02-28-2020 09:29-0500 BMI (Body Mass Index) 30.75 kg/m2 [facility] 02-28-2020 09:29-0500 Body Temperature 99 [degF] [facility] 02-28-2020 09:29-0500 Body weight 60.01 kg [facility] 02-28-2020 09:29-0500 BP Diastolic 85 mm[Hg] [facility] 02-28-2020 09:29-0500 BP Systolic 133 mm[Hg] [facility] 02-28-2020 09:29-0500 Pulse (Heart Rate) 102 /min [facility] 02-20-2020 16:00-0500 BP Diastolic 79 mm[Hg] [facility] 02-20-2020 16:00-0500 BP Systolic 120 mm[Hg] [facility] 02-20-2020 16:00-0500 Pulse (Heart Rate) 96 /min [facility] 02-20-2020 16:00-0500 Pulse Oximetry 99 % [facility] 02-20-2020 16:00-0500 Respiratory Rate 12 /min [facility] 02-20-2020 13:00-0500 Body Temperature 97.81 [degF] [facility] 02-20-2020 06:23-0500 BMI (Body Mass Index) 29.52 kg/m2 [facility] 02-20-2020 06:23-0500 Body weight 57.61 kg [facility] 02-20-2020 06:23-0500 Height 139.7 cm [facility] 02-07-2020 09:39-0500 BMI (Body Mass Index) 31.38 kg/m2 [facility] 02-07-2020 09:39-0500 Body Temperature 97.81 [degF] [facility] 02-07-2020 09:39-0500 Body weight 61.24 kg [facility] 02-07-2020 09:39-0500 BP Diastolic 94 mm[Hg] [facility] 02-07-2020 09:39-0500 BP Systolic 144 mm[Hg] [facility] 02-07-2020 09:39-0500 Height 139.7 cm [facility] 02-07-2020 09:39-0500 Pulse (Heart Rate) 80 /min [facility] 01-30-2020 13:06-0500 BMI (Body Mass Index) 31.07 kg/m2 [facility] 01-30-2020 13:06-0500 Body Temperature 98.1 [degF] [facility] 01-30-2020 13:06-0500 Body weight 60.65 kg [facility] 01-30-2020 13:06-0500 BP Diastolic 86 mm[Hg] [facility] 01-30-2020 13:06-0500 BP Systolic 130 mm[Hg] [facility] 01-30-2020 13:06-0500 Height 139.7 cm [facility] 01-30-2020 13:06-0500 Pulse (Heart Rate) 88 /min [facility] 01-30-2020 13:06-0500 Pulse Oximetry 95 % [facility] 01-30-2020 13:06-0500 Respiratory Rate 16 /min [facility] 01-24-2020 09:26-0500 BMI (Body Mass Index) 30.87 kg/m2 [facility] 01-24-2020 09:26-0500 Body Temperature 97.81 [degF] [facility] 01-24-2020 09:26-0500 Body weight 60.24 kg [facility] 01-24-2020 09:26-0500 BP Diastolic 84 mm[Hg] [facility] 01-24-2020 09:26-0500 BP Systolic 127 mm[Hg] [facility] 01-24-2020 09:26-0500 Height 139.7 cm [facility] 01-24-2020 09:26-0500 Pulse (Heart Rate) 83 /min [facility] 01-12-2020 09:23-0500 BMI (Body Mass Index) 30.89 kg/m2 [facility] 01-12-2020 09:23-0500 Body Temperature 98.2 [degF] [facility] 01-12-2020 09:23-0500 Body weight 60.28 kg Negro Landrum [facility] 01-12-2020 [id number] BP Diastolic 82 mm[Hg] Negro Landrum [facility] 01-12-2020 09:23-0500 BP Systolic 126 mm[Hg] Negro Landrum [facility] 01-12-2020 [id number] [facility] 139.7 [facility] [id number] Pulse (Heart Rate) 83 /[facility] 01-12-[facility] [id number] Pulse [facility]ximetry 96 % [facility] 10-05-2019 09:28-0400 BMI (Body Mass Index) 31.19 kg/m2 [facility] 10-05-2019 09:28-0400 Body Temperature 99.1 [degF] [facility] 10-05-2019 09:28-0400 Body weight 60.87 kg [facility] 10-05-2019 [id number] BP Diastolic 90 mm[Hg] [facility] 10-05-2019 09:28-0400 BP Systolic 134 mm[Hg] [facility] 10-05-2019 [id number] Height 139.7 cm [facility] 10-05-2019 09:28-0400 Pulse (Heart Rate) 95 /min [facility] 09-30-2019 10:14-0400 BMI (Body Mass Index) 31.12 kg/m2 [facility] 09-30-2019 10:14-0400 Body weight 60.74 kg [facility] 09-30-2019 10:14-0400 BP Diastolic 84 mm[Hg] [facility] 09-30-2019 10:14-0400 BP Systolic 123 mm[Hg] [facility] 09-30-2019 10:14-0400 Height 139.7 cm [facility] 09-30-2019 10:14-0400 Pulse (Heart Rate) 75 /min [facility] 09-30-2019 10:14-0400 Pulse Oximetry 97 % [facility] 09-30-2019 10:14-0400 Respiratory Rate 18 /min Tierney [facility] 09-26-2019 08:19-0400 BMI (Body Mass Index) 30.94 kg/m2 Alise Darcie [facility] 09-26-2019 08:19-0400 Body Temperature 98.1 [degF] Alise Sprague [facility] 09-26-2019 08:19-0400 Body weight 60.37 kg Alise Sprague [facility] 09-26-2019 08:19-0400 BP Diastolic 79 mm[Hg] [facility]-26-2019 08:19-0400 BP Systolic 113 mm[Hg] [facility] 09-26-2019 08:19-0400 Pulse (Heart Rate) 86 /min [facility] 09-26-2019 08:19-0400 Pulse Oximetry 98 % [facility] 09-26-2019 08:19-0400 Respiratory Rate 17 /min [facility] 04-21-2019 14:00-0500 BMI (Body Mass Index) 31.33 kg/m2 [facility] 04-21-2019 14:00-0500 Body Temperature 99.19 [degF] [facility] 04-21-2019 14:00-0500 Body weight 61.15 kg [facility] 04-21-2019 14:00-0500 BP Diastolic 56 mm[Hg] [facility] 04-21-2019 14:00-0500 BP Systolic 98 mm[Hg] [facility] 04-21-2019 14:00-0500 Pulse (Heart Rate) 63 /min [facility] 04-21-2019 14:00-0500 Pulse Oximetry 97 % [facility] 04-21-2019 14:00-0500 Respiratory Rate 16 /min [facility] 01-03-2019 07:26-0400 BMI (Body Mass Index) 30.21 kg/m2 Jennifer Weber [facility] 01-03-2019 07:26-0400 Body weight 58.97 kg Jennifer Weber [facility] 01-03-2019 07:26-0400 BP Diastolic 85 mm[Hg] Jennifer Weber [facility] 01-03-2019 07:26-0400 BP Systolic 121 mm[Hg] Jennifer Weber [facility] 01-03-2019 07:26-0400 Height 139.7 cm Jennifer Weber [facility] 01-03-2019 07:26-0400 Pulse (Heart Rate) 76 /min Jennifer Weber [facility] 12-20-2018 08:27-0400 BMI (Body Mass Index) 31.82 kg/m2 Alise Sprague [facility] 12-20-2018 08:27-0400 Body Temperature 98.2 [degF] Alise Sprague [facility] 12-20-2018 08:27-0400 Body weight 62.1 kg Alise Sprague [facility] 12-20-2018 08:27-0400 BP Diastolic 72 mm[Hg] Alise Sprague [facility] 12-20-2018 08:27-0400 BP Systolic 115 mm[Hg] Alise Sprague [facility] 12-20-2018 08:27-0400 Height 139.7 cm Alise Sprague [facility] 12-20-2018 08:27-0400 Pulse (Heart Rate) 72 /min Alise Sprague [facility] 12-20-2018 08:27-0400 Pulse Oximetry 97 % Alise Sprague [facility] 12-20-2018 08:27-0400 Respiratory Rate 16 /min Alise Sprague [facility] 10-12-2018 10:19-0400 BP Diastolic 75 mm[Hg] Alise Sprague [facility] 10-12-2018 10:19-0400 BP Systolic 115 mm[Hg] Alise Sprague [facility] 10-12-2018 10:12-0400 BMI (Body Mass Index) 30.7 kg/m2 Alise Sprague [facility] 10-12-2018 10:12-0400 Body Temperature 98.49 [degF] Alise Sprague [facility] 10-12-2018 10:12-0400 Body weight 59.92 kg Alise Sprague [facility] 10-12-2018 10:12-0400 Pulse (Heart Rate) 92 /min Alise Sprague [facility] 10-12-2018 10:12-0400 Pulse Oximetry 18 % Alise Sprague [facility] 10-12-2018 10:12-0400 Respiratory Rate 18 /min Alise Sprague [facility] 06-18-2018 09:32-0400 BMI (Body Mass Index) 30.45 kg/m2 Kaci Bassett [facility] 06-18-2018 09:32-0400 BP Diastolic 70 mm[Hg] [facility] 06-18-2018 09:32-0400 BP Systolic 110 mm[Hg] [facility] 06-18-2018 09:32-0400 Height 139.7 cm [facility] 06-18-2018 09:32-0400 Pulse (Heart Rate) 88 /min [facility] Stefilian [facility] 06-18-2018 09:32-0400 Pulse Oximetry 96 % [facility] 06-18-2018 09:32-0400 Respiratory Rate 16 /min [facility] 06-18-2018 09:32-0400 Weight 59.42 [facility] 06-06-2018 21:51-0400 BP Diastolic 85 mm[Hg] [facility] 06-06-2018 21:51-0400 BP Systolic 146 mm[Hg] [facility] 06-06-2018 21:51-0400 Pulse (Heart Rate) 95 /min [facility] 06-06-2018 21:51-0400 Pulse Oximetry 96 % [facility] 06-06-2018 21:51-0400 Respiratory Rate 17 /min [facility] 06-06-2018 20:38-0400 Height 144.8 cm [facility] 06-06-2018 20:37-0400 Body Temperature 96.69 [degF] [facility] 03-18-2018 16:37-0500 BP Diastolic 96 mm[Hg] [facility] 03-18-2018 16:37-0500 BP Systolic 144 mm[Hg] [facility] 03-18-2018 16:19-0500 BMI (Body Mass Index) 30.59 kg/m2 [facility] 03-18-2018 16:19-0500 Body Temperature 97.7 [degF] [facility] 03-18-2018 16:19-0500 Height 139.7 cm [facility] 03-18-2018 16:19-0500 Pulse (Heart Rate) 90 /min [facility] 03-18-2018 16:19-0500 Pulse Oximetry 98 % [facility] 03-18-2018 16:19-0500 Respiratory Rate 15 /min [facility] 03-18-2018 16:19-0500 Weight 59.69 kg [facility] 12-14-2017 16:55-0400 BP Diastolic 100 mm[Hg] [facility] 12-14-2017 16:55-0400 BP Systolic 160 mm[Hg] [facility] 12-14-2017 16:27-0400 BMI (Body Mass Index) 29.29 kg/m2 [facility] 12-14-2017 16:27-0400 Body Temperature 97.9 [degF] [facility] 12-14-2017 16:27-0400 Pulse (Heart Rate) 96 /min [facility] 12-14-2017 16:27-0400 Pulse Oximetry 99 % [facility] 12-14-2017 16:27-0400 Respiratory Rate 16 /min [facility] 12-14-2017 16:27-0400 Weight 57.15 kg [facility] 07-22-2017 15:52-0400 BP Diastolic 100 mm[Hg] [facility] 07-22-2017 15:52-0400 BP Systolic 158 mm[Hg] [facility] 07-22-2017 15:08-0400 BMI (Body Mass Index) 30.12 kg/m2 [facility] 07-22-2017 15:08-0400 Body Temperature 98.1 [degF] [facility] 07-22-2017 15:08-0400 Height 139.7 cm [facility] 07-22-2017 15:08-0400 Pulse (Heart Rate) 72 /min [facility] 07-22-2017 15:08-0400 Pulse Oximetry 98 % Vamatt Bassett [facility] 07-22-2017 15:040 Respiratory Rate 16 /min Nematt Bassett [facility] 07-22-2017 15:08-0400 Weight 58.79 kg Nematt Bassett [facility] Encounters Encounter Date Encounter Type Care Provider Facility Start: 09-30-2024 End: 09-30-2024 ambulatory Aury Mera MD Work Phone: [facility] [place] Start: 09-30-2024 End: 09-30-[address] Bartolo Harrington MD -[facility] Work Phone: Start: 09-29-2024 End: 09-29-[address] Bartolo Harrington MD -[facility] Work Phone: Start: 09-29-2024 End: 09-30-2024 ambulatory Aury Ede [facility] Start: 06-28-2024 ambulatory AURY EDE [facility] Start: 05-23-2024 End: 05-23-2024 Patient encounter procedure Aury Mera MD Work Phone: [facility] Start: 05-23-2024 End: 05-23-2024 Periodic preventive med est patient 40-64yrs Aury Mera MD Work Phone: [facility] Comment on above: Annual physical exam (Primary Dx); Hypothyroidism, unspecified type; Primary hypertension; Mixed hyperlipidemia; Family history of diabetes mellitus Start: 05-23-2024 End: 05-23-[address] [facility] Start: 05-23-2024 End: 05-23-2024 Encounter for general adult medical examination without abnormal findings [facility] Start: 05-11-2024 End: 05-13-2024 Sharla Correa CNP Work Phone: [facility] Comment on above: Migraine with aura a nd without status migrainosus, not intractable Start: 04-10-2024 End: 04-11-2024 Refevaristo Correa CNP Work Phone: [facility] Comment on above: Migraine with aura a nd without status migrainosus, not intractable Start: 04-01-2024 End: 04-01-2024 Office outpatient visit 25 minutes Yary Arleth Gudino SENIOR COMPUTER SPECIALIST Work Phone: [facility] Comment on above: Upper respiratory tr act infection, unspecified type (Primary Dx); Non-recurrent acute suppurative otitis media of left ear without spontaneous rupture of tympanic membrane Start: 04-01-2024 End: 04-01-[facility] Start: 02-25-2024 End: 02-25-2024 Emergency department patient visit [facility] Start: 02-24-2024 [facility] Start: 02-19-2024 End: 02-19-2024 Orders Only Mac Pretson PA-C Work Phone: [facility] Comment on above: Sacral back pain (Pr imary Dx) Start: 02-12-2024 End: 02-12-2024 Sharla Correa SENIOR COMPUTER SPECIALIST Work Phone: [facility] Comment on above: Migraine with aura a nd without status migrainosus, not intractable Start: 02-09-2024 End: 02-09-2024 [facility] Start: 02-08-2024 End: 02-08-2024 Office outpatient visit 25 minutes Boo Swann MD Work Phone: [facility] Comment on above: Sacral back pain (Pr imary Dx); Sacroiliac joint dysfunction of left side; Left hip pain Start: 02-08-2024 End: 02-08-2024 [facility] Start: 12-25-2023 End: 12-25-2023 Office outpatient new 30 minutes Karena Reno MD Work Phone: [facility] Comment on above: Excess skin (Primary Dx) Start: 12-25-2023 ambulatory KARENA A [facility] Start: 12-21-2023 End: 12-25-[address] [facility] Start: 11-23-2023 End: 11-23-2023 Office outpatient visit 25 minutes Aury Mera MD Work Phone: [facility] Comment on above: Primary hypertension (Primary Dx); Postartificial menopausal syndrome; Hypothyroidism, unspecified type; Symptomatic abdominal panniculus; Mixed hyperlipidemia Start: 11-23-2023 End: 11-27-2023 ambulatory [facility] Start: 11-09-2023 End: 11-10-2023 Refill Sophia William MD Work Phone: [facility] Comment on above: Urge incontinence of urine; Overactive bladder Migraine with aura a nd without status migrainosus, not intractable Primary hypertension ; Postartificial menopausal syndrome; Hypothyroidism, unspecified type Start: 09-24-2023 End: 09-24-2023 ambulatory [facility] Start: 08-24-2023 End: 08-24-2023 Office outpatient new 30 minutes Aury Mera MD Work Phone: [facility] Comment on above: Low back pain, unspe cified back pain laterality, unspecified chronicity, unspecified whether sciatica present (Primary Dx); Spina bifida occulta Start: 08-24-2023 End: 08-24-2023 [facility] Start: 07-20-2023 End: 07-20-2023 ambulatory [facility] Start: 06-23-2023 End: 06-23-2023 ambulatory [facility] Start: 05-21-2023 Patient encounter status Aury Mera MD Work Phone: [facility] Start: 05-21-2023 End: 05-25-2023 ambulatory [facility] Start: 05-21-2023 End: 05-25-2023 Encounter for general adult medical examination with abnormal findings [facility] Start: 05-21-2023 End: 05-21-2023 Periodic preventive med est patient 40-64yrs Aury Mera MD Work Phone: [facility] Comment on above: Encounter for well a dult exam with abnormal findings (Primary Dx); Psychophysiological insomnia; Primary hypertension; Postartificial menopausal syndrome; Hypothyroidism, unspecified type; Encounter for screening for malignant neoplasm of breast, unspecified screening modality; Cognitive change Start: 05-06-2023 Refill Aury Mera MD Work Phone: [facility] Comment on above: Primary hypertension Start: 04-22-2023 End: 04-22-2023 [facility] Start: 04-20-2023 Encounter for other preprocedural examination MARTA ONEIDA [facility] Start: 04-20-2023 End: 04-20-2023 Office outpatient new 45 minutes Sophia William MD Work Phone: [facility] Comment on above: Stress incontinence of urine (Primary Dx); Hypothyroidism, unspecified type; Primary hypertension; Preop examination Start: 04-20-2023 End: 04-20-2023 Preprocedural examination done Sophia William MD Work Phone: [facility] Work Phone: Start: 04-20-2023 End: 04-24-2023 [facility] Start: 04-20-2023 End: 04-24-2023 Encounter for other preprocedural examination [facility] Start: 04-19-2023 Refill Aury Mera MD Work Phone: [facility] Comment on above: Hypothyroidism, unsp ecified type Primary hypertension Start: 04-17-2023 End: 04-21-2023 [facility] Start: 04-15-2023 End: 04-15-2023 Patient encounter procedure Sophia William MD Work Phone: [facility] Comment on above: Stress incontinence of urine; Urge incontinence of urine; Overactive bladder Start: 01-13-2023 End: 01-13-2023 Office outpatient new 30 minutes Aury Mera MD Work Phone: [facility] Comment on above: Urinary incontinence , unspecified type Start: 01-13-2023 End: 01-13-2023 Office outpatient visit 40 minutes Albina Correa SENIOR COMPUTER SPECIALIST Work Phone: [facility] Comment on above: Migraine with aura a nd without status migrainosus, not intractable (Primary Dx); Fibromyalgia; Chronic right hip pain Start: 11-13-2022 End: 11-13-2022 Office outpatient visit 25 minutes Aury Mera MD Work Phone: [facility] Comment on above: Primary hypertension (Primary Dx); Hypothyroidism, unspecified type; Postartificial menopausal syndrome; Iron deficiency; Migraine without status migrainosus, not intractable, unspecified migraine type Start: 06-29-2022 End: 06-29-2022 ambulatory AURY RODRIGUEZ Facility:[facility] Start: 05-19-2022 End: 05-20-2022 ambulatory AURY MERA [facility] Start: 05-15-2022 End: 11-23-2023 Patient encounter status Aury Mera MD Work Phone: [facility] Start: 05-15-2022 End: 05-15-2022 Periodic preventive med est patient 40-64yrs Aury Mera MD Work Phone: [facility] Comment on above: Encounter for well a dult exam with abnormal findings (Primary Dx); Primary hypertension; Hypothyroidism, unspecified type; Postartificial menopausal syndrome; Encounter for screening for malignant neoplasm of breast, unspecified screening modality; Hair loss Start: 04-10-2022 End: 04-10-2022 Office outpatient visit 25 minutes Hugh Calles MD Work Phone: [facility] Comment on above: Migraine with aura a nd without status migrainosus, not intractable (Primary Dx) Start: 04-08-2022 End: 04-08-2022 Office outpatient visit 25 minutes Tierney Saleem SENIOR COMPUTER SPECIALIST Work Phone: [facility] Comment on above: Acute maxillary sinu sitis, recurrence not specified (Primary Dx); Cough with congestion of paranasal sinus; Antibiotic-induced yeast infection; History of tonsillectomy; Otalgia of both ears Start: 03-17-2022 Refill Aury Mera MD Work Phone: [facility] Comment on above: Postartificial menop ausal syndrome; Primary hypertension Start: 10-14-2021 End: 10-14-2021 Office outpatient new 60 minutes Aury Mera MD Work Phone: [facility] Comment on above: Migraine with aura a nd without status migrainosus, not intractable (Primary Dx) Start: 08-13-2021 End: 08-13-2021 Office outpatient visit 15 minutes Negro Landrum MD Work Phone: [facility] Comment on above: Chronic diarrhea (Pr imary Dx); Epigastric pain Start: 07-09-2021 End: 07-09-2021 Office outpatient visit 25 minutes Aury Mera MD Work Phone: [facility] Comment on above: Migraine with aura a nd without status migrainosus, not intractable (Primary Dx); Hypothyroidism, unspecified type; Mixed hyperlipidemia; Primary hypertension; Vitamin D deficiency; Encounter for screening for cardiovascular disorders; B12 deficiency; Epigastric pain; Chronic right-sided low back pain without sciatica Start: 07-01-2021 Refill Rosy Ramírez [facility] Start: 06-26-2021 [facility] Negro Landrum MD Work Phone: [facility] Comment on above: Epigastric pain (Ita adal Dx); Chronic diarrhea; Family history of colon cancer Start: 01-28-2021 End: 01-28-2021 Office outpatient visit 15 minutes Aury Mera MD Work Phone: [facility] Comment on above: Cough (Primary Dx) Start: 01-23-2021 End: 01-23-2021 Phys/qhp telephone evaluation 11-20 min Yoly Taylor SENIOR COMPUTER SPECIALIST Work Phone: [facility] Comment on above: COVID-19 (Primary Dx ); Cough; Sinusitis, unspecified chronicity, unspecified location Start: 11-20-2020 End: 11-20-2020 Postop follow up visit related to original px Chaitanya Mauricio SENIOR COMPUTER SPECIALIST Work Phone: [facility] Comment on above: Status post tonsille ctomy (Primary Dx); Postoperative pain; Postoperative visit Start: 11-13-2020 End: 11-13-2020 Anesthesia consultation Alban Frederick MD Work Phone: [facility] Start: 11-08-2020 End: 05-21-2023 Preprocedural examination done David Hawthorne MD Work Phone: [facility] Work Phone: Start: 11-05-2020 End: 11-05-2020 Office outpatient new 30 minutes David Hawthorne MD Work Phone: [facility] Comment on above: Chronic tonsillitis and adenoiditis (Primary Dx); Tonsil stone Start: 10-31-2020 End: 10-31-2020 Office outpatient visit 25 minutes Tierney Saleem CNP Work Phone: [facility] Comment on above: Sensorineural hearin g loss (SNHL) of both ears (Primary Dx); Chronic allergic rhinitis; Chronic tonsillar hypertrophy; Tonsil stone Start: 10-02-2020 End: 10-02-2020 Office outpatient visit 25 minutes Tierney Saleem CNP Work Phone: [facility] Comment on above: Recurrent acute sero us otitis media of both ears (Primary Dx); Seasonal allergic rhinitis, unspecified trigger; Chronic tonsillar hypertrophy; Tonsil stone Start: 09-06-2020 End: 09-06-2020 Clinical Support Lora Waldrop LPN [facility] Comment on above: Vitamin D deficiency Start: 08-22-2020 End: 08-22-2020 Documentation procedure Pauline Roger MA [facility] Start: 08-07-2020 End: 08-07-2020 Office outpatient visit 25 minutes Aury Mera MD Work Phone: [facility] Comment on above: Chronic right hip pa in (Primary Dx); Chronic right-sided low back pain without sciatica; Essential hypertension; Hypothyroidism, unspecified type; B12 deficiency Start: 06-21-2020 End: 06-21-2020 Clinical Support Lora Waldrop [facility] Comment on above: Vitamin B12 deficien cy (Primary Dx) Start: 06-18-2020 End: 06-18-2020 Office outpatient visit 25 minutes Aury Mera Work Phone: [facility] Comment on above: Fatigue, unspecified type (Primary Dx); Vitamin D deficiency; B12 deficiency; Anemia, unspecified type Start: 05-25-2020 End: 05-25-2020 Subsequent hospital visit by physician Provider Not In System [facility] External Films Comment on above: Arrived Start: 05-17-2020 End: 05-17-2020 Orders Only Alise Sprague Work Phone: [facility] Comment on above: Encounter for screen ing mammogram for malignant neoplasm of breast (Primary Dx) Start: 05-03-2020 End: 05-03-2020 Orders Only Rachana Hester Work Phone: [facility] Start: 05-01-2020 End: 05-01-2020 Postop follow up visit related to original px Sabina Sanchez Work Phone: [facility] Comment on above: S/P bilateral breast reduction (Primary Dx) Start: 04-27-2020 End: 04-27-2020 Refill Alise Sprague Work Phone: [facility] Comment on above: Essential hypertensi on; Hypothyroidism, unspecified type Start: 04-10-2020 Refill Alise Sprague RN [facility] Comment on above: Hypothyroidism, unsp ecified type Start: 03-27-2020 End: 03-27-2020 Postop follow up visit related to original px Sabina Sanchez Work Phone: [facility] Comment on above: S/P bilateral breast reduction (Primary Dx) Start: 03-20-2020 End: 03-20-2020 Postop follow up visit related to original px Sabina Daniel Work Phone: [facility] Comment on above: S/P bilateral breast reduction (Primary Dx); Seroma of breast Start: 03-15-2020 End: 03-15-2020 Emergency department patient visit Keanu Thompson Work Phone: [facility] Emergency Department Start: 03-13-2020 End: 03-13-2020 Refill Alise Sprague Work Phone: [facility] Comment on above: Hypothyroidism, unsp ecified type Start: 03-06-2020 End: 03-06-2020 Postop follow up visit related to original px Sabina Daniel Work Phone: [facility] Comment on above: S/P bilateral breast reduction (Primary Dx) Start: 02-28-2020 End: 02-28-2020 Postop follow up visit related to original px Sabina Daniel Work Phone: [facility] Comment on above: S/P bilateral breast reduction (Primary Dx) Start: 02-20-2020 End: 02-20-2020 Evaluation and management of inpatient Saibna Daniel Work Phone: [facility] Per[facility] Comment on above: Macromastia Start: 02-07-2020 End: 02-07-2020 Office outpatient visit 25 minutes Sabina Daniel Work Phone: [facility] Plastic Surgery Comment on above: S/P bilateral breast reduction (Primary Dx); Macromastia; Chronic back pain, unspecified back location, unspecified back pain laterality Start: 01-30-2020 End: 01-30-2020 Office outpatient visit 15 minutes Alise Sprague Work Phone: [facility] Comment on above: Pre-op evaluation (P rimary Dx) Start: 01-24-2020 End: 01-24-2020 Office outpatient visit 15 minutes Sabina Sanchez Work Phone: [facility] Plastic Surgery Comment on above: Macromastia (Primary Dx); Chronic back pain, unspecified back location, unspecified back pain laterality Start: 01-12-2020 End: 01-12-2020 Office outpatient new 30 minutes Negro Landrum Work Phone: [facility] Comment on above: Rectal bleeding (Ita adal Dx); Family history of colon cancer Start: 11-14-2019 Refill Alise Sprague RN [facility] Comment on above: Essential hypertensi on; Hypothyroidism, unspecified type Start: 10-05-2019 End: 10-05-2019 Office outpatient new 30 minutes Sabinamalika Sanchez Work Phone: [facility] Plastic Surgery Comment on above: Macromastia (Primary Dx); Chronic back pain, unspecified back location, unspecified back pain laterality Start: 09-30-2019 End: 09-30-2019 Office outpatient new 20 minutes Alise Sprague Work Phone: [facility] Comment on above: ETD (Eustachian tube dysfunction), bilateral (Primary Dx); Chronic pain of both ears; History of recurrent ear infection Start: 09-26-2019 End: 09-26-2019 Office outpatient visit 25 minutes Alise Sprague Work Phone: [facility] Comment on above: Chronic pain of both ears (Primary Dx); Postartificial menopausal syndrome; Essential hypertension; Large mass of breast Start: 04-21-2019 End: 04-21-2019 Office outpatient visit 25 minutes Alise Sprague Work Phone: [facility] Comment on above: Otitis externa, unsp ecified chronicity, unspecified laterality, unspecified type (Primary Dx); Right otitis media, unspecified otitis media type; Antibiotic-induced yeast infection Start: 01-03-2019 End: 01-03-2019 Office outpatient new 20 minutes Alise Sprague Work Phone: [facility] Comment on above: Chronic right hip pa in Start: 12-20-2018 End: 12-20-2018 Office outpatient visit 25 minutes Alise Dallas Sprague Work Phone: [facility] Comment on above: Essential hypertensi on (Primary Dx); Hypothyroidism, unspecified type; Postartificial menopausal syndrome Start: 11-04-2018 End: 11-04-2018 Subsequent hospital visit by physician Alise Sprague Work Phone: [facility] Comment on above: Chronic right hip pa in Start: 10-12-2018 End: 10-12-2018 Office outpatient visit 15 minutes Alise Sprague Work Phone: [facility] Comment on above: Chronic right hip pa in (Primary Dx); Acquired hypothyroidism; Mixed hyperlipidemia Start: 09-03-2018 End: 09-03-2018 Subsequent hospital visit by physician Agustin Balderas Work Phone: [facility] Comment on above: Right hip pain Start: 06-18-2018 End: 06-18-2018 Office outpatient visit 25 minutes Kaci Bassett Work Phone: [facility] Comment on above: Essential hypertensi on (Primary Dx); Acquired hypothyroidism; Mixed hyperlipidemia; Chronic right-sided low back pain without sciatica Start: 06-06-2018 End: 06-06-2018 Emergency department patient visit Ranjan Membreno Work Phone: [facility] Emergency Department Start: 03-19-2018 Patient encounter procedure Kaci Bassett Facility:[facility] Start: 03-18-2018 End: 03-18-2018 Office outpatient visit 25 minutes Kaci Bassett Work Phone: [facility] Comment on above: Mixed hyperlipidemia (Primary Dx); Essential hypertension; Acquired hypothyroidism; Chronic midline low back pain without sciatica; Vitamin D deficiency Start: 12-22-2017 Patient encounter procedure Kaci Bassett Facility:[facility] Start: 12-14-2017 End: 12-14-2017 Office outpatient visit 25 minutes Kaci Arias Susananakuldixie Work Phone: [facility] Comment on above: Acquired hypothyroid ism (Primary Dx); Essential hypertension; Chronic midline low back pain without sciatica; Vitamin D deficiency Start: 08-14-2017 Patient encounter procedure Kaci Bassett Facility:[facility] Start: 08-14-2017 End: 08-14-2017 Ambulatory Kaci Finchcelioian Work Phone: [facility] Start: 07-29-2017 Patient encounter procedure Antoninamatt Bassett Facility:[facility] Start: 07-22-2017 End: 07-22-2017 Office/outpatient visit, est, level 4 Kaci Finchdixie Work Phone: [facility] Start: 05-01-2017 [facility] Start: 05-01-2017 End: 05-01-2017 Ambulatory [facility] Start: 04-23-2017 End: 04-23-2017 Emergency department patient visit [facility] Start: 02-11-2017 End: 02-11-2017 Ambulatory Johnathon Kelvin Work Phone: [facility] Start: 02-11-2017 End: 02-11-2017 Ambulatory Johnathon Kelvin Work Phone: [facility] Start: 11-14-2016 End: 11-14-2016 Ambulatory Johnathon Kelvin Work Phone: [facility] Start: 11-14-2016 End: 11-14-2016 Ambulatory Johnathon Kelvin Work Phone: [facility] Procedures Date Procedure Procedure Detail Performing Clinician Start: 11-23-2023 Lipid 1996 panel - Serum or Plasma Aury Mera MD Work Phone: Start: 07-20-2023 Mammography Mac Preston PA-C Work Phone: Start: 05-21-2023 Drug tst prsmv instrmnt chem analyzers pr date Aury Mera MD Work Phone: Start: 05-21-2023 Adult depression screening assessment Aury Mera MD Work Phone: Start: 05-21-2023 Lipid 1996 panel - Serum or Plasma Aury Mera MD Work Phone: Start: 04-15-2023 CYSTOSCOPY Sophia William MD Work Phone: Start: 01-13-2023 MEASURE POST VOID RESIDUAL Christina Brooks SENIOR COMPUTER SPECIALIST Work Phone: Start: 01-13-2023 Urnls dip stick/tablet rgnt auto w/o microscopy Christina Cooper SENIOR COMPUTER SPECIALIST Work Phone: Start: 05-22-2022 Mammography Aury Mera MD Work Phone: Start: 05-15-2022 Adult depression screening assessment Aury Mera MD Work Phone: Start: 07-22-2021 Colonoscopy Negro Landrum MD Work Phone: Start: 07-09-2021 Lipid 1996 panel - Serum or Plasma Aury Mera MD Work Phone: Start: 05-07-2021 Mammography Negro Landrum MD Work Phone: Start: 11-13-2020 AIRWAY ETT Edil NEAL Work Phone: Start: 05-25-2020 Mammography External Transcribed Start: 03-15-2020 Fine needle aspiration and core needle biopsy of breast using ultrasound guidance Cassius Soto Work Phone: Start: 03-15-2020 Bacteria identified in Body fluid by Culture Cassius Soto Work Phone: Start: 03-15-2020 Ultrasonography of soft tissues of back Cassius Soto Work Phone: Start: 03-15-2020 Assay of lactate Cassius Soto Work Phone: Start: 03-15-2020 Complete blood count with white cell differential, automated Cassius Soto Work Phone: Start: 03-15-2020 Creatinine blood Cassius Soto Work Phone: Start: 02-20-2020 History of reduction of breast S/P bilateral breast reduction Aury Mera MD Work Phone: Start: 12-16-2019 Lipid 1996 panel - Serum or Plasma Negro Landrum Start: 09-26-2019 Adult depression screening assessment Alise Sprague Start: 04-28-2019 Mammography Alise Sprague Start: 11-04-2018 Mri any jt lower extrem w/o contrast matrl Alise Haynes Darcie Work Phone: Start: 09-03-2018 Radex hip unilateral with pelvis 2-3 views Agustin Balderas Work Phone: Start: 06-21-2018 Lipid 1996 panel - Serum or Plasma Agustin Balderas Start: 06-18-2018 Adult depression screening assessment Alisejyotsna Craveney Start: 06-07-2018 X-ray of left foot Ranjan Membreno Work Phone: Start: 03-19-2018 Lipid 1996 panel - Serum or Plasma Kaci Bassett Start: 03-17-2018 Mammography Kaci Bassett Start: 03-17-2018 Microscopic observation [Identifier] in Cervix by Cyto stain Kaci Bassett Start: 12-22-2017 Lipid 1996 panel - Serum or Plasma Kaci Bassett Start: 11-07-2016 Colonoscopy Kaci Bassett History of tonsillectomy Status post tonsillectomy Chaitanya Mauricio SENIOR COMPUTER SPECIALIST Work Phone: History of tonsillectomy History of tonsillectomy Tierney Saleem SENIOR COMPUTER SPECIALIST Work Phone: Plan of Treatment Date Care Activity Detail Author Start: 05-22-2032 Tetanus vaccination [facility] Start: 05-24-2027 Pneumococcal Vaccine: Age 50+ (1 of 1 - PCV) Pneumococcal Vaccine: Age 50+ (1 of 1 - PCV) [facility] Comment on above: Postponed from 2022 (Not Indicated ) Start: 11-07-2026 Protein mass conc COLONOSCOPY [facility] Start: 11-07-2026 Screening for malignant neoplasm of colon Colorectal Cancer Screening: Colonoscopy [facility] Start: 07-22-2026 Screening for malignant neoplasm of colon [facility] Start: 05-23-2025 Depression screening using PHQ-9 (Patient Health Questionnaire 9) score Depression Screening/Follow-Up (PHQ-2/9) [facility] Start: 05-23-2025 History and physical examination, annual for health maintenance Wellness Visit [facility] Start: 11-26-2024 COVID-19 Vaccine ( season) COVID-19 Vaccine ( season) [facility] Comment on above: Postponed from 11/08/2023 (Treatment Not Available) Start: 11-26-2024 COVID-19 Vaccine ( season) COVID-19 Vaccine ( season) [facility] Comment on above: Postponed from 11/08/2023 (Treatment Not Available) Start: 11-22-2024 Administration of herpes zoster vaccine Zoster Vaccines (1 of 2) [facility] Comment on above: Postponed from 2022 (Patient Refus ed) Start: 11-22-2024 Lipid panel Lipid Panel [facility] Start: 10-25-2024 End: 10-25-2024 Patient encounter procedure 10/25/2024 7:00 AM EDT Off ice Visit [facility] [address] [place] [id number] Unique Nina, [facility] [address] [place] [address] [facility] Start: 10-10-2024 ambulatory Ambulatory Facility:[facility] Start: 09-05-2024 Influenza vaccination Influenza Vaccine (#1) [facility] Comment on above: Postponed from 11/08/2023 (Patient Refus ed) Start: 07-22-2024 Screening for malignant neoplasm of colon [facility] Start: 07-19-2024 Screening for malignant neoplasm of breast [facility] Start: 05-24-2024 COVID-19 Vaccine () COVID-19 Vaccine () [facility] Comment on above: Postponed from 11/07/2022 (Treatment Not Available) Start: 05-23-2024 End: 05-23-2024 Patient encounter procedure 05/23/2024 8:40 AM EDT Off ice Visit [facility] [address] [place] [address] Aury Mera MD [address] [facility] [place] [address] [facility] Start: 05-20-2024 Depression screening using PHQ-9 (Patient Health Questionnaire 9) score [facility] Start: 05-20-2024 History and physical examination, annual for health maintenance Wellness Visit [facility] Start: 05-20-2024 Lipid panel Lipid Panel [facility] Start: 02-19-2024 End: 02-18-2025 MR Sacrum WO contrast MR Sacrum Without Contrast Imaging Routine Sacral back pain Expected: 02/19/2024 (Approximate), Expires: 02/18/2025 [facility] Work Phone: Comment on above: Expected: 02/19/2024 (Approximate), Expi res: 02/18/2025 Start: 02-08-2024 End: 02-07-2025 XR Hip - left 2 Views XR Hip Left 2-3 Views (Routine) Imaging Routine Left hip pain Expected: 02/08/2024, Expires: 02/07/2025 [facility] Comment on above: Expected: 02/08/2024, Expires: Start: 02-08-2024 End: 02-07-2025 XR Sacrum and Coccyx 2 Views XR Sacrum And Coccyx 2+ V iews Imaging Routine Sacral back pain Sacroiliac joint dysfunction of left side Expected: 02/08/2024, Expires: 02/07/2025 [facility] Work Phone: Comment on above: Expected: 02/08/2024, Expires: Start: 12-03-2023 End: 12-03-2023 Patient encounter procedure 12/03/2023 10:30 AM EDT Office Visit [facility] [address] [facility] [place] [place] [phone] Boo Swann MD [address] [facility] [place] [address] [address] [facility] Start: 11-23-2023 End: 11-23-2023 Patient encounter procedure 11/23/2023 8:40 AM EDT Off ice Visit [facility] [address] [facility] [place] [address] Aury Mera MD [address] [address] [facility] Start: 11-13-2023 End: 11-13-2023 Patient encounter procedure 11/13/2023 1:45 PM EDT Off ice Visit [facility] [address] [facility] [place] [id number] Boo Swann MD [address] [facility] [place] [address] [address] [facility] Start: 11-08-2023 COVID-19 Vaccine ( season) COVID-19 Vaccine ( season) [facility] Start: 11-08-2023 Influenza vaccination [facility] Start: 09-06-2023 Influenza vaccination Sequential Influenza Vaccine (#1) [facility] Comment on above: Postponed from 11/07/2022 (Patient Refus ed) Start: 08-24-2023 End: 08-23-2024 MR Lumbar spine WO contrast MR Lumbar Spine Without Contrast Imaging Routine Spina bifida occulta Low back pain, unspecified back pain laterality, unspecified chronicity, unspecified whether sciatica present Expected: 08/24/2023 (Approximate), Expires: 08/23/2024 [facility] Work Phone: Comment on above: Expected: 08/24/2023 (Approximate), Expi res: 08/23/2024 Start: 08-24-2023 End: 08-23-2024 XR Lumbar spine Views W flexion and W extension XR Lumbar Spine Standard with Flex/Ext 4+ Views Imaging Routine Spina bifida occulta Low back pain, unspecified back pain laterality, unspecified chronicity, unspecified whether sciatica present Expected: 08/24/2023 (Approximate), Expires: 08/23/2024 [facility] Comment on above: Expected: 08/24/2023 (Approximate), Expi res: 08/23/2024 Start: 06-03-2023 End: 06-03-2023 Follow-up encounter 06/03/2023 11:15 AM EDT Follow-Up [facility] Phys[facility] [address] [place] [address] Sophia William MD [address] [id number] [facility] Start: 05-23-2023 Screening for malignant neoplasm of breast Mammogram [facility] Start: 05-21-2023 End: 05-21-2023 Patient encounter procedure 05/21/2023 8:40 AM EDT Off ice Visit [facility] [address] [place] [address] Aury Mera MD [address] [facility] [place] [address] [facility] Start: 05-16-2023 Depression screening using PHQ-9 (Patient Health Questionnaire 9) score Depression Screening (PHQ-2/9) [facility] Start: 05-16-2023 History and physical examination, annual for health maintenance Wellness Visit [facility] Start: 04-22-2023 End: 04-22-2023 Admission to same day surgery center 04/22/2023 2:04 PM EST - 04/22/2023 3:23 PM EST Surgery [facility] [address] [facility] [place] [address] Sophia William MD [address] [facility] [address] [place] [address] BLADDER SUSPENSION TRANSOBTURATOR [facility] Comment on above: BLADDER SUSPENSION TRANSOBTURATOR Start: 04-22-2023 End: 04-22-2023 BLADDER SUSPENSION TRANSOBTURATOR BLADDER SUSPENSION TRANSOBTURATOR Stress incontinence of urine 04/22/2023 2:04 PM EST [facility] Start: 04-22-2023 Subsequent hospital visit by physician 04/22/2023 2:04 PM EST Hospital Encounter [facility] [address] [place] [address] Spohia William MD [address] [facility] [address] [place] [address] [facility] Start: 04-20-2023 End: 04-20-2023 Admission to [facility] Preadmission Testing Start: 03-11-2023 End: 03-11-2023 Patient encounter procedure 03/11/2023 8:30 AM EST Procedure visit [facility] Physician [facility] [address] [place] [address] Sophia William MD [address] [facility] [address] [place] [address] [facility] Start: 11-13-2022 End: 11-13-2022 Patient encounter procedure 11/13/2022 Office Visit Primary Care Aury Mera MD [facility] [address] [place] [address] [facility] Start: 11-07-2022 COVID-19 Vaccine ( season) COVID-19 Vaccine ( season) [facility] Start: 11-07-2022 Influenza vaccination Sequential Influenza Vaccine (#1) [facility] Start: 2022 Administration of herpes zoster vaccine Zoster Vaccines (1 of 2) [facility] Start: 2022 Pneumococcal Vaccine: Age 50+ (1 of 1 - PCV) Pneumococcal Vaccine: Age 50+ (1 of 1 - PCV) [facility] Start: 2022 Screening for malignant neoplasm of colon Flexible sigmoidoscopy [facility] Start: 2022 Zoster vaccine hzv live for subcutaneous use ZOSTER (SHINGLES) VACCINE (1 of 2) [facility] Start: 07-09-2022 Lipid panel Lipid Panel [facility] Start: 05-15-2022 End: 05-15-2022 Patient encounter procedure 05/15/2022 Office Visit Primary Care Aury Mera MD [address] [place] [id number] [facility] Start: 05-07-2022 Screening for malignant neoplasm of breast Mammogram [facility] Start: 04-11-2022 End: 04-11-2022 Patient encounter procedure 04/11/2022 Office Visit Neurology Hugh Calles MD [address] [place] [address] [place] [address] [facility] Start: 01-06-2022 End: 01-06-2022 Patient encounter procedure 01/06/2022 Office Visit Primary Care Aury Mera MD [address] [place] [address] [facility] Start: 12-14-2021 Tetanus vaccination [facility] Start: 11-07-2021 Influenza vaccination Sequential Influenza Vaccine (#1) [facility] Start: 10-14-2021 End: 10-14-2021 Patient encounter procedure 10/14/2021 Office Visit Neurology Aury Mera MD [address] [place] [address] Hugh Calles MD [address] [place] [address] [place] [address] [facility] Start: 07-22-2021 End: 07-22-2021 Admission to same day surgery center 07/22/2021 Surgery Negro Landrum MD [address] [place] [address] COLONOSCOPY [facility] Comment on above: COLONOSCOPY Start: 07-22-2021 End: 07-22-2021 Colonoscopy COLONOSCOPY Epigastric pain Chronic diarrhea Family history of colon cancer 07/22/2021 8:50 AM [facility] Start: 07-22-2021 End: 07-22-2021 Esophagogastroduodenoscopy ESOPHAGOGASTRODUODENOSCOPY Epigastric pain Chronic diarrhea Family history of colon cancer 07/22/2021 8:50 AM [facility] Start: 07-22-2021 Subsequent hospital visit by physician 07/22/2021 Hospital Encounter Negro Landrum MD [address] [place] [address] [facility] Start: 07-09-2021 End: 07-09-2021 Patient encounter procedure 07/09/2021 Office Visit Primary Care Aury Mera MD [address] [place] [address] [facility] Start: 03-17-2021 Screening for malignant neoplasm of cervix PAP SMEAR [facility] Start: 02-18-2021 End: 02-18-2021 Patient encounter procedure 02/18/2021 Office Visit Otolaryngology David Hawthorne MD [address] [place] [address] [facility] Start: 02-12-2021 End: 02-12-2021 Patient encounter procedure 02/12/2021 Office Visit Otolaryngology Tierney Saleem CNP [address] [place] [address] [facility] Start: 02-06-2021 COVID-19 Vaccine (3 - Booster for Moderna series) COVID-19 Vaccine (3 - Booster for Moderna series) [facility] Start: 01-28-2021 End: 01-28-2021 Patient encounter procedure 01/28/2021 Office Visit Otolaryngology Tierney Saleem, [place] [address] [place] [address] [facility] Start: 01-24-2021 End: 01-24-2021 Patient encounter procedure 01/24/2021 Office Visit Primary Care Hailey García MD [address] [address] [facility] Start: 12-15-2020 Fasting lipid profile Lipid Panel [facility] Start: 12-15-2020 Lipid panel Lipid Panel [facility] Start: 11-20-2020 End: 11-20-2020 Follow-up encounter 11/20/2020 Follow-Up Otolaryngology Carrier Washer, Chaitanya Miller CNP [address] [place] [address] [place] [address] [facility] Start: 11-13-2020 End: 11-13-2020 Documentation procedure 11/13/2020 Scanned Document Otolaryngology David Hawthorne MD [address] [place] [address] [facility] Start: 11-13-2020 End: 11-13-2020 Admission to same day surgery center 11/13/2020 Surgery David Hawthorne MD [address] [place] [address] TONSILLECTOMY AND possible ADENOIDECTOMY [facility] Comment on above: TONSILLECTOMY AND possible ADENOIDECTOMY Start: 11-13-2020 Subsequent hospital visit by physician 11/13/2020 Hospital Encounter David Hawthorne MD [address] [place] [address] [facility] Start: 11-13-2020 End: 11-13-2020 TONSILLECTOMY AND ADENOIDECTOMY TONSILLECTOMY AND ADENOIDECTOMY Chronic tonsillitis and adenoiditis 11/13/2020 11:18 AM EDT [facility] Start: 11-07-2020 Influenza vaccination Sequential Influenza Vaccine (#1) [facility] Start: 11-05-2020 End: 11-05-2020 Patient encounter procedure [facility] Start: 11-01-2020 COVID-19 Vaccine (3 - Booster for Moderna series) COVID-19 Vaccine (3 - Booster for Moderna series) [facility] Start: 11-01-2020 COVID-19 Vaccine (3 - Moderna series) COVID-19 Vaccine (3 - Moderna series) [facility] Start: 10-31-2020 End: 10-31-2020 Patient encounter procedure 10/31/2020 Office Visit Otolaryngology Tierney Saleem CNP [address] [place] [address] [phone] [facility] Start: 09-25-2020 Adolescent depression screening assessment Depression Screening (PHQ9) [facility] Start: 09-25-2020 Depression screening using PHQ-9 (Patient Health Questionnaire 9) score [facility] Start: 09-06-2020 COVID-19 Vaccine (2 - Moderna 2-dose series) COVID-19 Vaccine (2 - Moderna 2-dose series) [facility] Start: 09-06-2020 End: 09-06-2020 Clinical Support 09/06/2020 Clinical Support Primary Care [facility] Start: 07-23-2020 End: 07-23-2020 Clinical Support 07/23/2020 Clinical Support Primary Care [facility] Start: 06-11-2020 End: 06-11-2020 Appointment 06/11/2020 Appointment Radiology Alise Sprague, SENIOR COMPUTER SPECIALIST [address] [facility] [address] [place] [address] [phone] [facility] Start: 05-17-2020 End: 07-17-2021 MG Breast - bilateral screening Mammography Screening Bilateral Imaging Routine Encounter for screening mammogram for malignant neoplasm of breast Expected: 05/17/2020, Expires: 07/17/2021 [facility] Comment on above: Expected: 05/17/2020, Expires: Start: 05-05-2020 Screening mammography MAMMOGRAM SCREENING DISCUSSION [facility] Start: 05-01-2020 End: 05-01-2020 Office Visit 05/01/2020 Office Visit Plastic Sabina Jones MD [address] [place] [address] [phone] [facility] Plastic Surgery Start: 04-28-2020 Screening for malignant neoplasm of breast Mammogram [facility] Start: 04-28-2020 Screening mammography Mammogram [facility] Start: 03-27-2020 End: 03-27-2020 Office Visit 03/27/2020 Office Visit Plastic Surgery Sabina Sanchez MD [address] [place] [address] [phone] [facility] Plastic Surgery Start: 03-06-2020 End: 03-06-2020 Office Visit 03/06/2020 Office Visit Plastic Surgery Sabina Sanchez MD [address] [place] [address] [phone] [facility] Plastic Surgery Start: 02-28-2020 End: 02-28-2020 Office Visit 02/28/2020 Office Visit Plastic Surgery Sabina Sanchez MD [address] [place] [address] [phone] [facility] Plastic Surgery Start: 02-20-2020 End: 02-20-2020 Hospital Encounter [facility] Periop Comment on above: Macromastia BILATERAL BREAST RED UCTION 1st asst <23 HR OBS- SA > Start: 02-10-2020 End: 02-10-2020 Hospital Encounter [facility] Periop Comment on above: Rectal bleeding; Family history of colon cancer COLONOSCOPY Start: 02-07-2020 End: 02-07-2020 Office Visit 02/07/2020 Office Visit Plastic Surgery Sabina Sanchez MD [address] [place] [address] [phone] [facility] Plastic Surgery Start: 02-07-2020 End: 02-07-2020 Hospital Encounter [facility] Periop Comment on above: Rectal bleeding; Family history of colon cancer COLONOSCOPY Start: 02-06-2020 End: 02-06-2020 Office Visit 02/06/2020 Office Visit Negro Honeycutt MD [address] [place] [address] [phone] [facility] Start: 02-03-2020 End: 02-03-2020 Office Visit 02/03/2020 Office Visit Negro Honeycutt MD [address] [place] [address] [phone] [facility] Start: 11-08-2019 Influenza vaccination INFLUENZA VACCINE (#1) [facility] Start: 11-08-2019 Influenza vaccination given Sequential Influenza Vacci ne (#1) [facility] Start: 11-08-2019 Screening for malignant neoplasm of colon [facility] Start: 11-02-2019 End: 11-02-2019 Office Visit [facility] Start: 10-05-2019 End: 10-05-2019 Office Visit 10/05/2019 Office Visit Primary Care Alise Sprague, SENIOR COMPUTER SPECIALIST [address] [place] [address] [phone] [facility] Start: 09-30-2019 End: 09-30-2019 Office Visit [facility] Start: 07-05-2019 End: 07-05-2019 Office Visit 07/05/2019 Office Visit Primary Care Alise Sprague, SENIOR COMPUTER SPECIALIST [address] [place] [address] [phone] [facility] Start: 07-04-2019 End: 07-04-2019 Office Visit 07/04/2019 Office Visit Primary Care Alise Sprague, SENIOR COMPUTER SPECIALIST [address] [place] [address] [phone] [facility] Start: 06-22-2019 Fasting lipid profile Lipid Panel [facility] Start: 06-19-2019 Depression screening using PHQ-9 (Patient Health Questionnaire 9) score DEPRESSION SCREENING (PHQ9) [facility] Start: 03-17-2019 Protein mass conc MAMMOGRAM [facility] Start: 03-17-2019 Screening mammography Mammogram [facility] Start: 01-11-2019 End: 01-11-2019 Office Visit 01/11/2019 Office Visit Sports Medicine Alise Sprague, SENIOR COMPUTER SPECIALIST [address] [place] [address] [phone] Jennifer Weber MD [address] [place] [address] [phone] [facility] Start: 12-07-2018 End: 12-07-2018 Office Visit 12/07/2018 Office Visit Primary Care Alise Sprague, SENIOR COMPUTER SPECIALIST [address] [place] [address] [phone] [facility] Start: 11-07-2018 Influenza vaccination given SEQUENTIAL INFLUENZA VACCI NE (#1) [facility] Start: 10-12-2018 End: 10-13-2019 MRI of hip with contrast MR Hip Right With Contrast Imaging Routine Chronic right hip pain Expected: 10/12/2018, Expires: 10/13/2019 [facility] Comment on above: Expected: 10/12/2018, Expires: 0 Start: 10-12-2018 End: 10-12-2018 Office Visit 10/12/2018 Office Visit Primary Care Alise Sprague, SENIOR COMPUTER SPECIALIST [address] [place] [address] [phone] [facility] Start: 10-07-2018 End: 10-07-2018 Office Visit 10/07/2018 Office Visit Primary Care Kaci Bassett MD [address] [address] [phone] [facility] Primary Care Physicians Start: 09-16-2018 Fasting lipid profile LIPID PANEL [facility] Start: 06-25-2018 End: 06-19-2019 CT Abdomen Pelvis Without Contrast CT Abdomen Pelvis Without Contrast Routine Chronic right-sided low back pain without sciatica Expected: 06/25/2018, Expires: 06/19/2019 [facility] Comment on above: Expected: 06/25/2018, Expires: 0 Start: 06-25-2018 End: 06-25-2018 Appointment 06/25/2018 Appointment Radiology Kaci Bassett MD [address] [place] [address] [phone] [facility] CT Scan Start: 06-22-2018 Fasting lipid profile LIPID PANEL [facility] Start: 06-19-2018 End: 06-19-2019 Complete blood count with white cell differential, manual CBC and Differential Routine Essential hypertension Expected: 06/19/2018, Expires: 06/19/2019 [facility] Comment on above: Expected: 06/19/2018, Expires: 0 Start: 06-19-2018 End: 06-19-2019 Comprehensive metabolic 2000 panel Comprehensive Metabolic Panel Routine Essential hypertension Expected: 06/19/2018, Expires: 06/19/2019 [facility] Comment on above: Expected: 06/19/2018, Expires: 0 Start: 06-19-2018 End: 06-19-2019 Lipid 1996 panel Lipid Panel Routine Acquired hypothyroidism Expected: 06/19/2018, Expires: 06/19/2019 [facility] Comment on above: Expected: 06/19/2018, Expires: 0 Start: 06-19-2018 End: 06-19-2019 T4 free mass conc T4, Free Routine Acquired hypothyroidism Expected: 06/19/2018, Expires: 06/19/2019 [facility] Comment on above: Expected: 06/19/2018, Expires: 0 Start: 06-19-2018 End: 06-19-2019 Thyrotropin Qn TSH Routine Acquired hypothyroidism Expected: 06/19/2018, Expires: 06/19/2019 [facility] Comment on above: Expected: 06/19/2018, Expires: 0 Start: 06-18-2018 End: 06-18-2018 Ambulatory 06/18/2018 Office Visit Primary Care Kaci Bassett MD [address] [address] [phone] [facility] Phys[facility] Start: 03-18-2018 End: 03-18-2019 Comprehensive metabolic 2000 panel Comprehensive Metabolic Panel Routine Mixed hyperlipidemia Expected: 03/18/2018, Expires: 03/18/2019 [facility] Comment on above: Expected: 03/18/2018, Expires: 0 Start: 03-18-2018 End: 03-18-2019 Lipid 1996 panel Lipid Panel Routine Mixed hyperlipidemia Expected: 03/18/2018, Expires: 03/18/2019 [facility] Comment on above: Expected: 03/18/2018, Expires: 0 Start: 03-18-2018 End: 03-18-2019 T4 free mass conc T4, Free Routine Mixed hyperlipidemia Expected: 03/18/2018, Expires: 03/18/2019 [facility] Comment on above: Expected: 03/18/2018, Expires: 0 Start: 03-18-2018 End: 03-18-2019 Thyrotropin Qn TSH Routine Mixed hyperlipidemia Expected: 03/18/2018, Expires: 03/18/2019 [facility] Comment on above: Expected: 03/18/2018, Expires: 0 Start: 03-18-2018 End: 03-18-2019 Vitamin D, 25-hydroxy measurement Vitamin D, Total, 25-OH Routine Vitamin D deficiency Expected: 03/18/2018, Expires: 03/18/2019 [facility] Comment on above: Expected: 03/18/2018, Expires: 0 Start: 02-13-2018 Lipid panel LIPID PANEL [facility] Start: 01-29-2018 End: 01-29-2018 Ambulatory 01/29/2018 Office Visit Primary Care Kaci Bassett MD [address] [place] [address] [phone] [facility] Start: 01-02-2018 Screening mammography MAMMOGRAM [facility] Start: 12-14-2017 End: 12-14-2018 Vitamin D, Total, 25-OH Vitamin D, Total, 25-OH Routine Vitamin D deficiency Expected: 12/14/2017, Expires: 12/14/2018 [facility] Comment on above: Expected: 12/14/2017, Expires: 9 Start: 12-14-2017 End: 12-14-2018 XR Lumbar Spine 2-3 Views (Standard) XR Lumbar Spine 2-3 Views (Standard) Routine Chronic midline low back pain without sciatica Expected: 12/14/2017, Expires: 12/14/2018 [facility] Comment on above: Expected: 12/14/2017, Expires: 9 Start: 11-07-2017 Influenza vaccination [facility] Start: 2017 Screening for malignant neoplasm of colon COLORECTAL CANCER SCREENING [facility] Start: 09-23-2017 End: 09-23-2017 Ambulatory 09/23/2017 Office Visit Primary Care Kaci Bassett MD [address] [place] [address] [phone] [facility] Start: 07-23-2017 End: 07-22-2018 Vitamin D, Total, 25-OH Vitamin D, Total, 25-OH Routine Vitamin D deficiency Expected: 07/23/2017, Expires: 07/22/2018 [facility] Start: 05-19-2017 Ambulatory 05/19/2017 [facility] Kaci Angel MD [address] [place] [address] [phone] [facility] Start: 02-10-2017 Ambulatory 02/10/2017 [facility] Johnathon To MD [address] [place] [address] [phone] [facility] Start: 11-07-2016 Influenza vaccination SEQUENTIAL INFLUENZA VACCINE (#1) [facility] Work Phone: Start: 04-08-2015 Screening for malignant neoplasm of cervix PAP SMEAR [facility] Start: 2012 Fasting lipid profile LIPID SCREENING [facility] Start: 2012 Lipid panel LIPID SCREENING [facility] Start: 2012 Protein mass conc MAMMOGRAM SCREENING DISCUSSION [facility] Start: 2012 Screening mammography MAMMOGRAM SCREENING DISCUSSION [facility] Start: 2002 Screening for malignant neoplasm of cervix HPV/Cotest [facility] Start: 1993 Screening for malignant neoplasm of cervix [facility] Start: 10-18-1991 Hepatitis B vaccination HEP B VACCINE (1 of 3 - 19+ 3-dose series) [facility] Start: 10-18-1991 Third diphtheria, tetanus and acellular pertussis (DTaP) vaccination TDAP (ADULT) [facility] Start: 1990 Hepatitis C antibody, confirmatory test Hepatitis C Screening [facility] Start: 1990 Hepatitis C screening Hepatitis C Screening [facility] Start: 1990 Tetanus vaccination TETANUS [facility] Start: 1988 COVID-19 Vaccine (1 of 2) COVID-19 Vaccine (1 of 2) [facility] Start: 1988 COVID-19 Vaccine (1) COVID-19 Vaccine (1) [facility] Start: 10-18-1987 HIV screening [facility] Start: 1985 HIV screening HIV SCREENING DISCUSSION [facility] Start: 1984 COVID-19 Vaccine (1) COVID-19 Vaccine (1) [facility] Start: 10-18-1975 History and physical examination, annual for health maintenance Wellness Visit [facility] Start: 1972 Hepatitis C antibody, confirmatory test HEPATITIS C VIRUS SCREENING [facility] Start: 1972 Hepatitis C screening HEPATITIS C VIRUS SCREENING [facility] Start: 1972 Screening for malignant neoplasm of cervix PAP SMEAR [facility] Work Phone: Start: 1972 Screening for malignant neoplasm of colon [facility] Start: 1972 Tetanus vaccination TETANUS EVERY 10 YR [facility] Work Phone: Start: 1972 Thyroid stimulating hormone measurement TSH [facility] Start: 1972 Thyrotropin Qn TSH [facility] End: 05-16-2023 VIRGEN measurement VIRGEN Lab Routine Hair loss 1 Occurrences starting 05/15/2022 until 05/16/2023 [facility] Comment on above: 1 Occurrences starting 05/15/2022 until 05/16/2023 VIRGEN measurement VIRGEN Lab Routine Hair loss 05/15/2022 8:30 AM EST [facility] Bacteria identified Cx Nom (Body fld) BODY FLUID CULTURE AND DIRECT SMEAR Microbiology Today 03/15/2020 3:20 PM EST [facility] BLADDER SUSPENSION TRANSOBTURATOR BLADDER SUSPENSION TRANSOBTURATOR Stress incontinence of urine [facility] End: 07-22-2018 CBC and Differential CBC and Differential Routine Essential hypertension 1 Occurrences starting 07/22/2017 until 07/22/2018 [facility] Colonoscopy COLONOSCOPY Epig astric pain Chronic diarrhea Family history of colon cancer [facility] End: 12-14-2018 Complete blood count (hemogram) panel - Blood by Automated count CBC Routine Essential hypertension 1 Occurrences starting 12/14/2017 until 12/14/2018 [facility] Comment on above: 1 Occurrences starting 12/14/2017 until 12/14/2018 End: 10-13-2019 Complete blood count with white cell differential, manual CBC and Differential Lab Routine Mixed hyperlipidemia 1 Occurrences starting 10/12/2018 until 10/13/2019 [facility] Comment on above: 1 Occurrences starting 10/12/2018 until 10/13/2019 End: 12-21-2019 Complete blood count with white cell differential, manual CBC and Differential Lab Routine Essential hypertension 1 Occurrences starting 12/20/2018 until 12/21/2019 [facility] Comment on above: 1 Occurrences starting 12/20/2018 until 12/21/2019 End: 06-18-2021 Complete blood count with white cell differential, manual CBC and Differential Lab Routine Anemia, unspecified type 1 Occurrences starting 06/18/2020 until 06/18/2021 [facility] Comment on above: 1 Occurrences starting 06/18/2020 until 06/18/2021 End: 05-23-2025 Complete blood count with white cell differential, manual CBC and Differential Lab Routine Primary hypertension Annual physical exam 1 Occurrences starting 05/23/2024 until 05/23/2025 [facility] Work Phone: Comment on above: 1 Occurrences starting 05/23/2024 until 05/23/2025 End: 12-14-2018 Comprehensive metabolic 2000 panel Comprehensive Metabolic Panel Routine Essential hypertension 1 Occurrences starting 12/14/2017 until 12/14/2018 [facility] Comment on above: 1 Occurrences starting 12/14/2017 until 12/14/2018 End: 10-13-2019 Comprehensive metabolic 2000 panel Comprehensive Metabolic Panel Lab Routine Mixed hyperlipidemia 1 Occurrences starting 10/12/2018 until 10/13/2019 [facility] Comment on above: 1 Occurrences starting 10/12/2018 until 10/13/2019 End: 12-21-2019 Comprehensive metabolic 2000 panel Comprehensive Metabolic Panel Lab Routine Essential hypertension 1 Occurrences starting 12/20/2018 until 12/21/2019 [facility] Comment on above: 1 Occurrences starting 12/20/2018 until 12/21/2019 End: 05-23-2025 Comprehensive metabolic 2000 panel - Serum or Plasma Comprehensive Metabolic Panel Lab Routine Primary hypertension Annual physical exam 1 Occurrences starting 05/23/2024 until 05/23/2025 [facility] Comment on above: 1 Occurrences starting 05/23/2024 until 05/23/2025 End: 07-22-2018 Comprehensive metabolic panel [AGGREGATE] Comprehensive Metabolic Panel Routine Essential hypertension 1 Occurrences starting 07/22/2017 until 07/22/2018 [facility] End: 05-20-2024 CT Head WO contrast CT Head Or Brain Without Contrast Imaging Routine Cognitive change 1 Occurrences starting 05/21/2023 until 05/20/2024 [facility] Comment on above: 1 Occurrences starting 05/21/2023 until 05/20/2024 Esophagogastroduodenoscopy ESOPH AGOGASTRODUODENOSCOPY Epigastric pain Chronic diarrhea Family history of colon cancer [facility] End: 06-18-2021 Ferritin [Mass/Vol] Ferritin Lab Routine Anemia, unspecified type 1 Occurrences starting 06/18/2020 until 06/18/2021 [facility] Comment on above: 1 Occurrences starting 06/18/2020 until 06/18/2021 End: 06-18-2021 Free T4 [Mass/Vol] T4, Free Lab Routine Fatigue , unspecified type 1 Occurrences starting 06/18/2020 until 06/18/2021 [facility] Comment on above: 1 Occurrences starting 06/18/2020 until 06/18/2021 End: 05-23-2025 Hemoglobin A1c/Hemoglobin.total in Blood Hemoglobin A1c Lab Routine Family history of diabetes mellitus Annual physical exam 1 Occurrences starting 05/23/2024 until 05/23/2025 [facility] Comment on above: 1 Occurrences starting 05/23/2024 until 05/23/2025 End: 05-16-2023 Hepatitis C antibody measurement Hepatitis C Antibody Lab Routine Encounter for well adult exam with abnormal findings 1 Occurrences starting 05/15/2022 until 05/16/2023 [facility] Comment on above: 1 Occurrences starting 05/15/2022 until 05/16/2023 Hepatitis C antibody measurement Hepatitis C Antibody Lab Routine Encounter for well adult exam with abnormal findings 05/15/2022 8:30 AM [facility] Human immunodeficien cy virus antibody test HIV 1/2 Screen (4th Generation) Lab Routine Encounter for well adult exam with abnormal findings 05/15/2022 8:30 AM EST [facility] End: 12-14-2018 Lipid 1996 panel Lipid Panel Routine Acquired hypothyroidism 1 Occurrences starting 12/14/2017 until 12/14/2018 [facility] Comment on above: 1 Occurrences starting 12/14/2017 until 12/14/2018 End: 10-13-2019 Lipid 1996 panel Lipid Panel Lab Routine Mixe d hyperlipidemia 1 Occurrences starting 10/12/2018 until 10/13/2019 [facility] Comment on above: 1 Occurrences starting 10/12/2018 until 10/13/2019 End: 12-21-2019 Lipid 1996 panel Lipid Panel Lab Routine Essential hypertension 1 Occurrences starting 12/20/2018 until 12/21/2019 [facility] Comment on above: 1 Occurrences starting 12/20/2018 until 12/21/2019 End: 05-23-2025 Lipid 1996 panel - Serum or Plasma Lipid Panel Lab Routine Mixed hyperlipidemia Annual physical exam 1 Occurrences starting 05/23/2024 until 05/23/2025 [facility] Comment on above: 1 Occurrences starting 05/23/2024 until 05/23/2025 End: 07-22-2018 Lipid panel Lipid Panel Routine Hypothyroidism, unspecified type 1 Occurrences starting 07/22/2017 until 07/22/2018 [facility] End: 07-16-2023 MG Breast - bilateral Screening Mammography Screening Julio Bilateral Imaging Routine Encounter for screening for malignant neoplasm of breast, unspecified screening modality 1 Occurrences starting 05/15/2022 until 07/16/2023 [facility] Work Phone: Comment on above: 1 Occurrences starting 05/15/2022 until 07/16/2023 End: 07-20-2024 MG Breast - bilateral Screening Mammography Screening Julio Bilateral Imaging Routine Encounter for screening for malignant neoplasm of breast, unspecified screening modality 1 Occurrences starting 05/21/2023 until 07/20/2024 [facility] Work Phone: Comment on above: 1 Occurrences starting 05/21/2023 until 07/20/2024 Microalbumin measure ment, urine, quantitative Microalbumin/Creatinine Ratio, UR Random Lab Routine Encounter for well adult exam with abnormal findings 05/21/2023 9:28 AM EDT [facility] End: 05-20-2024 Rheumatoid factor, quantitative Rheumatoid factor Lab Routine Encounter for well adult exam with abnormal findings 1 Occurrences starting 05/21/2023 until 05/20/2024 [facility] Comment on above: 1 Occurrences starting 05/21/2023 until 05/20/2024 Rheumatoid factor, quantitative Rheumatoid factor Lab Routine Encounter for well adult exam with abnormal findings 05/21/2023 9:28 AM T [facility] SURGICAL PATHOLOGY REQUEST SURGI ESSIE PATHOLOGY REQUEST Surg Path Routine Macromastia Chronic bilateral back pain, unspecified back location Release Upon Ordering for 1 Occurrences starting 02/20/2020 [facility] Comment on above: Release Upon Ordering for 1 Occurrences starting 02/20/2020 End: 12-14-2018 T4 free mass conc T4, Free Routine Acquired hypothyroidism 1 Occurrences starting 12/14/2017 until 12/14/2018 [facility] Comment on above: 1 Occurrences starting 12/14/2017 until 12/14/2018 End: 05-16-2023 Testosterone Free [Mass/volume] in Serum or Plasma Testosterone, Total and Free (Calculated) Lab Routine Hair loss 1 Occurrences starting 05/15/2022 until 05/16/2023 [facility] Comment on above: 1 Occurrences starting 05/15/2022 until 05/16/2023 Testosterone Free [Mass/volume] in Serum or Plasma Testosterone, Total and Free (Calculated) Lab Routine Hair loss 05/15/2022 8:30 AM EST [facility] End: 05-23-2025 Thyrotropin [Units/volume] in Serum or Plasma TSH Lab Routine Hypothyroidism, unspecified type Annual physical exam 1 Occurrences starting 05/23/2024 until 05/23/2025 [facility] Comment on above: 1 Occurrences starting 05/23/2024 until 05/23/2025 End: 12-14-2018 Thyrotropin Qn TSH Routine Acquired hypothyroidism 1 Occurrences starting 12/14/2017 until 12/14/2018 [facility] Comment on above: 1 Occurrences starting 12/14/2017 until 12/14/2018 End: 07-22-2018 Thyroxine (T4) free T4, Free Routine Hypothyroidism, unspecified type 1 Occurrences starting 07/22/2017 until 07/22/2018 [facility] End: 05-23-2025 Thyroxine (T4) free [Mass/volume] in Serum or Plasma T4, Free Lab Routine Hypothyroidism, unspecified type Annual physical exam 1 Occurrences starting 05/23/2024 until 05/23/2025 [facility] Comment on above: 1 Occurrences starting 05/23/2024 until 05/23/2025 TONSILLECTOMY AND ADENOIDECTOMY TONSILLECTOMY AND ADENOIDECTOMY Chronic tonsillitis and adenoiditis [facility] End: 07-22-2018 TSH TSH Routine Hypothyroidism, unspecified type 1 Occurrences starting 07/22/2017 until 07/22/2018 [facility] End: 10-13-2019 TSH Qn TSH with Reflex Free T4 Lab Routine Acquired hypothyroidism 1 Occurrences starting 10/12/2018 until 10/13/2019 [facility] Comment on above: 1 Occurrences starting 10/12/2018 until 10/13/2019 End: 12-21-2019 TSH Qn TSH with Reflex Free T4 Lab Routine Hypothyroidism, unspecified type 1 Occurrences starting 12/20/2018 until 12/21/2019 [facility] Comment on above: 1 Occurrences starting 12/20/2018 until 12/21/2019 End: 06-18-2021 TSH Qn TSH Lab Routine Fatigue, unspecified type 1 Occurrences starting 06/18/2020 until 06/18/2021 [facility] Comment on above: 1 Occurrences starting 06/18/2020 until 06/18/2021 US Carotid arteries [facility] Immunizations Immunization Date Immunization Notes Care Provider Fa cility 05-22-2022 tetanus toxoid, unsp ecified formulation Aury Mera MD Work Phone: [facility] 01-28-2021 influenza, injectabl e, quadrivalent, preservative free Aury Mera MD Work Phone: [facility] 01-28-2021 flu vacc [id number] 6 mos up,PF, (FLUZONE QUAD) injection Aury Mera MD Work Phone: [facility] 01-28-2021 influenza virus vacc ine, unspecified formulation Mac Preston PA-C Work Phone: [facility] 04-09-2020 influenza virus vacc ine, unspecified formulation Aury Mera MD Work Phone: [facility] 11-10-2018 influenza virus vacc ine, unspecified formulation Alise Darcie [facility] 11-14-2016 influenza virus vacc ine, unspecified formulation Vamsee Amircelioni [facility] 12-15-2011 tetanus toxoid, redu justine diphtheria toxoid, and acellular pertussis vaccine, adsorbed [facility] Amir[facility] Payers Date Payer Category Payer Self-pay 2020 Medicaid (Managed Care) 1.2. [id number] 2018 Medicaid [facility] MANAG[facility] MEDICAID COMMUNITY PLAN xxxxxxxxx 2018-Present xxxxxxxxx [id number] 2018 Medicaid [id number]. [id number] 2018 Medicaid [id number]. 1.13.385.2. [id number] 2018 Unknown PARAMOUNT ADVANT AGE PARAMOUNT ADVANTAGE xxxxxxxxxxx 2018-Present [phone] xxxxxxxxxxx [id number]. [id number] 2016 Unknown [id number] 2012 Medicaid [id number] 2.16.840.1.766246.3.249.13 1972 Unknown [id number] 2.16.840.1.475730.3.579.2. 900 1972 Unknown [id number] 2.16.840.1.536044.3.579.2. 419 1972 Unknown [id number] 2.16.840.1.289214.3.579.2. 983 1972 Unknown [id number] 2.16.840.1.287272.3.579.2. 903 1972 Unknown [id number] 2.16.840.1.199178.3.579.2. 90 1972 Unknown [id number] 2.16.840.1.297857.3.579.2. 90 1972 Unknown [id number] 2.16.840.1.685308.3.579.2. 90 1972 Unknown [id number] 2.16.840.1.074201.3.579.2. 903 1972 Unknown [id number] 2.16.840.1.527662.3.579.2. 903 1972 Unknown [id number] 2.16.840.1.085444.3.579.2. 903 1972 Unknown [id number] 2.16.840.1.519248.3.579.2. 90 1972 Unknown [id number] 2.16.840.1.378965.3.579.2. 903 1972 Unknown [id number] 2.16.840.1.229695.3.579.2. 90 1972 Unknown [id number] 2.16.840.1.221821.3.579.2. 1972 Unknown [id number] 2.16.840.1.561987.3.579.2. 1972 Unknown [id number] 2.16.840.1.354290.3.579.2. 1972 Unknown [id number] 2.16.840.1.084948.3.579.2. 1972 Unknown [id number] 2.16.840.1.315804.3.579.2. 1972 Unknown [id number] 2.16.840.1.331818.3.579.2. 1972 Unknown [id number] 2.16.840.1.433701.3.579.2. 1972 Unknown [id number] 2.16.840.1.405696.3.579.2. 1972 Unknown [id number] 2.16.840.1.832677.3.579.2. 1972 Unknown [id number] 2.16.840.1.067523.3.579.2. 903 1959 Medicaid [id number] Unknown [id number] 2.16.840.1.857598.3.579.2. 462 Unknown [id number] 2.16.840.1.372498.3.579.2. 462 Unknown [id number] 2.16.840.1.321085.3.579.2. 462 Social History Date Type Detail Facility Start: 07-22-2017 End: 07-22-2021 Tobacco smoking status [facility] Never smoker [employer] Phone: Start: 1970 Sex Assigned At Not on file [employer] Phone: Start: 06-18-2018 End: 05-03-2022 History SDOH Social Connections Get Together 2 [facility] Start: 06-18-2018 End: 07-09-2021 History SDOH Food Worry 1 [facility] Start: 12-14-2017 Alcohol Comment SOCIALLY [facility] Start: 11-04-2018 End: 12-25-2023 Alcohol intake Current drinker of alcohol (finding) [facility] Start: 06-16-2021 End: 05-15-2022 Exposure to SARS-CoV-2 (event) Not sure [facility] Start: 01-12-2020 End: 07-22-2021 Tobacco use and exposure Never used [facility] Start: 11-08-2020 History SDOH Alcohol Comment SOCIALLY - once everyy 3 to 4 months [facility] Start: 06-26-2021 End: 05-23-2024 Alcohol intake Ex-drinker (finding) [facility] Start: 07-09-2021 History SDOH Social Connections Get Together 4 [facility] Start: 07-09-2021 History SDOH Financial 3 [facility] Start: 07-22-2021 End: 11-23-2023 Cigarette pack-years [facility] Start: 07-09-2021 End: 11-23-2023 Social connection and isolation panel [facility] Frequency of Communication with Friends and Family Not on file [facility] How hard is it for y ou to pay for the very basics like food, housing, medical care, and heating Somewhat hard [facility] (I/We) worried wheth er (my/our) food would run out before (I/we) got money to buy more. Never true [facility] Start: 06-18-2018 Gender identity Identifies as female gender (finding) [facility] Start: 06-18-2018 Sexual orientation Heterosexual (finding) [facility] How hard is it for y ou to pay for the very basics like food, housing, medical care, and heating Not very hard [facility] How often to you hav e a drink containing alcohol? Monthly or less [employer] [facility] if ever smoked [facility] [employer] Work Phone: Start: 1970 Sex Assigned At Female [facility] Medical Equipment Procedure Code Equipment Code Equipment Origin al Text Equipment Identifier Dates System Sling Transobturator Halo Obtryx Ii - Sna [id number], [id number] FDA Start: 04-22-2023 Comment on above: Description: transobturator Goals Date Patient Goal Desired Activity /State Personal health goal Comment on above: Formatting of this n ote might be different from the original. High blood pressure makes your heart work too hard. It can cause heart attack, stroke and kidney disease. Blood pressure goal is 140/90 or less. You will complete 150 minutes of formal exercise per week. You will maintain a BMI of 18.5-24.9 Formatting of this n ote might be different from the original. Total cholesterol goal is less than 199 Triglyceride goal is less than 150 HDL or good cholesterol is above 45 LDL goal is less than 100 Comment on above: High blood pressure makes your heart work too hard. It can cause heart attack, stroke and kidney disease. Blood pressure goal is 140/90 or less. You will complete 150 minutes of formal exercise per week. You will maintain a BMI of 18.5-24.9 Formatting of this n ote might be different from the original. High blood pressure makes your heart work too hard. It can cause heart attack, stroke and kidney disease. Blood pressure goal is 140/90 or less. You will complete 150 minutes of formal exercise per week. You will maintain a BMI of 18.5-24.9 Comment on above: Total cholesterol go al is less than 199 Triglyceride goal is less than 150 HDL or good cholesterol is above 45 LDL goal is less than 100 Formatting of this n ote might be different from the original. Total cholesterol goal is less than 199 Triglyceride goal is less than 150 HDL or good cholesterol is above 45 LDL goal is less than 100 Clinical Notes 08-07-2020 to 09-29-2024 Note Date & Type Note Facility 09-29-2024 Evaluation note Diagnosis Onset Date Resolution Migraine headache without aura acute September 29, 2024 9:06am Cerebrovascular accident (CVA) resolved September 29, 2024 9:06am [facility] Work Phone: [phone]) 904-614403-17-2025 Evaluation + Plan note* Assessment & Plan Note - Aury Mera MD - 05/23/2024 8:58 AM EDTAssociated Problem(s): Annual physical exam -Counseled on healthy diet. -Counseled on importance of exercise - 150mins/ week of moderate activity as tolerated -Depression screening was negative -Tobacco counseling not indicated -Alcohol screening negative -Immunizations reviewed. -Lab screening for diabetes recommended. -Discussed pap recommendations: follows with drilling foreman. Hysterectomy. -Discussed breast cancer screening: due 07/21/2024, will call to request order. -Discussed colon cancer screening: due 2026, every 5 years due to family history -Discussed osteoporosis screening: up to date -Reviewed lung cancer screening: not indicated [id number] Miscellaneous Notes* Assessment & Plan Note - Aury Mera MD - 05/23/2024 8:58 AM EDTAssociated Problem(s): Annual physical exam -Counseled on healthy diet. -Counseled on importance of exercise - 150mins/ week of moderate activity as tolerated -Depression screening was negative -Tobacco counseling not indicated -Alcohol screening negative -Immunizations reviewed. -Lab screening for diabetes recommended. -Discussed pap recommendations: follows with drilling foreman. Hysterectomy. -Discussed breast cancer screening: due 07/21/2024, will call to request order. -Discussed colon cancer screening: due 2026, every 5 years due to family history -Discussed osteoporosis screening: up to date -Reviewed lung cancer screening: not indicated documented in this [id number] NoteSergiorangel Jordan is a 53 y.o. female Assessment/Plan: Problem List Items Addressed This Visit Endocrine Hypothyroidism Relevant Orders TSH T4, Free Cardiovascular and Mediastinum Hypertension Relevant Orders CBC and Differential Comprehensive Metabolic Panel Other Mixed hyperlipidemia Relevant Orders Lipid Panel Annual physical exam - Primary -Counseled on healthy diet. -Counseled on importance of exercise - 150mins/ week of moderate activity as tolerated -Depression screening was negative -Tobacco counseling not indicated -Alcohol screening negative -Immunizations reviewed. -Lab screening for diabetes recommended. -Discussed pap recommendations: follows with drilling foreman. Hysterectomy. -Discussed breast cancer screening: due 07/21/2024, will call to request order. -Discussed colon cancer screening: due 2026, every 5 years due to family history -Discussed osteoporosis screening: up to date -Reviewed lung cancer screening: not indicated Relevant Orders CBC and Differential Comprehensive Metabolic Panel Hemoglobin A1c TSH T4, Free Lipid Panel Other Visit Diagnoses Family history of diabetes mellitus Relevant Orders Hemoglobin A1c Return in about 5 months (around 10/23/2024) for Medication refill(thyroid/HTN). Lima Jordan is a 53 y.o. female who presents for Chief Complaint Patient presents with Annual Exam HPI 53 y.o. A1 postmenopausal female on HRT with a history of Hypertension, hypothyroidism and chronic back pain who presents for preventative health exam. She is seeing Dr. Harrington again. Any concerns/complaints: Thyroid: yes asymptomatic take levothyroxine alone with no other medications. Nutrition: Chicken and tuna,less red meat. Vegetables and fruits daily Neutrogenics meal replacement. Water- >120 oz Coffee- 1-2 cup a day Juice sometimes No alcohol use No tobacco use Exercise: wall pilates Supplement: biotin, collagen Sleep: 8 hours, doing well. Neurology has her on Elavil as needed Any Family history of breast cancer, uterine cancer or ovarian cancer? Maternal aunt Any family history of colon cancer?Paternal grandmother, dx at 52 Family hx of heart disease Obstetrics & gynecology History Last menstrual period: hysterectomy Sexually active: yes Any breast concerns? no Last mammogram: 07/20/23 Last pap smear (HPV): 2020 no cotest Follows with gynecology Last bone density scan: 2020 Last colon cancer screenin q5y Problem List[1] Past Surgical History: Procedure Laterality Date APPENDECTOMY 1994 BLADDER SUSPENSION TRANSOBTURATOR N/A 04/22/2023 Procedure: BLADDER SUSPENSION TRANSOBTURATOR; Surgeon: Sophia William MD; Location: [facility] OR; Service: Urology CARPAL TUNNEL RELEASE Right 11/2011 SECTION, CLASSIC 92 and 95 Two 1991 1994 CHOLECYSTECTOMY 04/2017 COLONOSCOPY 2016 COLONOSCOPY N/A 07/22/2021 Procedure: COLONOSCOPY WITH BIOPSY; Surgeon: Negro Landrum MD; Location: [facility] [place] OR; Service: Gastroenterology CYST REMOVAL 09/2016 back CYSTO 04/15/2023 EGD N/A 07/22/2021 Procedure: ESOPHAGOGASTRODUODENOSCOPY WITH BIOPSY; Surgeon: Negro Landrum MD; Location: [facility] [place] OR; Service: Gastroenterology HYSTERECTOMY REDUCTION MAMMAPLASTY Bilateral 02/2020 TONSILLECTOMY Bilateral 11/13/2020 Procedure: TONSILLECTOMY; Surgeon: David Hawthorne MD; Location: [facility] OR; Service: Otolaryngology TONSILLECTOMY Family History Problem Relation Age of Onset Heart disease Mother Hypertension Mother Heart attack Mother Stroke Mother Arthritis Mother It crippled her Lung cancer Mother Hypertension Father Heart disease Father Diabetes Father Stroke Father Alcohol abuse Father Hes been sober 1 yr now Colon cancer Maternal Grandmother COPD Paternal Grandmother Cancer Paternal Grandmother Colon cancer diagnosed at 52 at 58 COPD Paternal Grandfather Parkinson's Brother Alcohol abuse Brother Brother and father has always struggled with alcohol Breast cancer Neg Hx Social History[2] Current Medications[3] Review of Systems Constitutional: Negative for appetite change, chills, diaphoresis, fatigue and fever. Eyes: Negative for visual disturbance. Respiratory: Negative for cough and shortness of breath. Cardiovascular: Negative for chest pain, palpitations and leg swelling. Gastrointestinal: Negative for abdominal pain, nausea and vomiting. Genitourinary: Negative for dysuria. Musculoskeletal: Negative for back pain. Skin: Negative for rash and wound. Neurological: Negative for dizziness, weakness, light-headedness, numbness and headaches. Psychiatric/Behavioral: Negative for confusion and sleep disturbance. Physical Exam: BP 113/79 (BP Location: Right arm, Patient Position: Sitting, BP Cuff Size: Adult) Pulse 67 (more content not included)...[facility] 05-23-2024 History of Present illness Narrative* Aury Mera MD - 05/23/2024 8:32 AM EDT Images from the original note were not included. Lima Jordan is a 53 y.o. female Assessment/Plan: Problem List Items Addressed This Visit Endocrine Hypothyroidism Relevant Orders TSH T4, Free Cardiovascular and Mediastinum Hypertension Relevant Orders CBC and Differential Comprehensive Metabolic Panel Other Mixed hyperlipidemia Relevant Orders Lipid Panel Annual physical exam - Primary -Counseled on healthy diet. -Counseled on importance of exercise - 150mins/ week of moderate activity as tolerated -Depression screening was negative -Tobacco counseling not indicated -Alcohol screening negative -Immunizations reviewed. -Lab screening for diabetes recommended. -Discussed pap recommendations: follows with drilling foreman. Hysterectomy. -Discussed breast cancer screening: due 07/21/2024, will call to request order. -Discussed colon cancer screening: due 2026, every 5 years due to family history -Discussed osteoporosis screening: up to date -Reviewed lung cancer screening: not indicated Relevant Orders CBC and Differential Comprehensive Metabolic Panel Hemoglobin A1c TSH T4, Free Lipid Panel Other Visit Diagnoses Family history of diabetes mellitus Relevant Orders Hemoglobin A1c Return in about 5 months (around 10/23/2024) for Medication refill(thyroid/HTN). Limawalter Jordan is a 53 y.o. female who presents for Chief Complaint Patient presents with Annual Exam HPI 53 y.o. A1 postmenopausal female on HRT with a history of Hypertension, hypothyroidism and chronic back pain who presents for preventative health exam. She is seeing Dr. Harrington again. Any concerns/complaints: Thyroid: yes asymptomatic take levothyroxine alone with no other medications. Nutrition: Chicken and tuna,less red meat. Vegetables and fruits daily Neutrogenics meal replacement. Water- >120 oz Coffee- 1-2 cup a day Juice sometimes No alcohol use No tobacco use Exercise: wall pilates Supplement: biotin, collagen Sleep: 8 hours, doing well. Neurology has her on Elavil as needed Any Family history of breast cancer, uterine cancer or ovarian cancer? Maternal aunt Any family history of colon cancer?Paternal grandmother, dx at 52 Family hx of heart disease Obstetrics & gynecology History Last menstrual period: hysterectomy Sexually active: yes Any breast concerns? no Last mammogram: 07/20/23 Last pap smear (HPV): 2020 no cotest Follows with gynecology Last bone density scan: 2020 Last colon cancer screenin q5y Problem List[1] Past Surgical History: Procedure Laterality Date APPENDECTOMY 1994 BLADDER SUSPENSION TRANSOBTURATOR N/A 04/22/2023 Procedure: BLADDER SUSPENSION TRANSOBTURATOR; Surgeon: Sophia William MD; Location: [facility] OR; Service: Urology CARPAL TUNNEL RELEASE Right 11/2011 SECTION, CLASSIC 92 and 95 Two 1991 1994 CHOLECYSTECTOMY 04/2017 COLONOSCOPY 2016 COLONOSCOPY N/A 07/22/2021 Procedure: COLONOSCOPY WITH BIOPSY; Surgeon: Negro Landrum MD; Location: [facility] [place]; Service: Gastroenterology CYST REMOVAL 09/2016 back CYSTO 04/15/2023 EGD N/A 07/22/2021 Procedure: ESOPHAGOGASTRODUODENOSCOPY WITH BIOPSY; Surgeon: Negro Landrum MD; Location: [facility] [place]; Service: Gastroenterology HYSTERECTOMY REDUCTION MAMMAPLASTY Bilateral 02/2020 TONSILLECTOMY Bilateral 11/13/2020 Procedure: TONSILLECTOMY; Surgeon: David Hawthorne MD; Location: [facility] OR; Service: Otolaryngology TONSILLECTOMY Family History Problem Relation Age of Onset Heart disease Mother Hypertension Mother Heart attack Mother Stroke Mother Arthritis Mother It crippled her Lung cancer Mother Hypertension Father Heart disease Father Diabetes Father Stroke Father Alcohol abuse Father Hes been sober 1 yr now Colon cancer Maternal Grandmother COPD Paternal Grandmother Cancer Paternal Grandmother Colon cancer diagnosed at 52 at 58 COPD Paternal Grandfather Parkinson's Brother Alcohol abuse Brother Brother and father has always struggled with alcohol Breast cancer Neg Hx Social History[2] Current Medications[3] Review of Systems Constitutional: Negative for appetite change, chills, diaphoresis, fatigue and fever. Eyes: Negative for visual disturbance. Respiratory: Negative for cough and shortness of breath. Cardiovascular: Negative for chest pain, palpitations and leg swelling. Gastrointestinal: Negative for abdominal pain, nausea and vomiting. Genitourinary: Negative for dysuria. Musculoskeletal: Negative for back pain. Skin: Negative for rash and wound. Neurological: Negative for dizziness, weakness, light-headedness, numbness and headaches. Psychiatric/Behavioral: Negative for confusion and sleep disturbance. Physical Exam: BP 113/79 (BP Location: Right arm, Patient Position: Sitting, BP Cuff Size: Adult) Pulse 67 Temp 97.6 F (36.4 C) (Oral) Resp 16 Ht 4' 7 Wt 56.7 kg (125 lb 1.6 oz) SpO2 96% BMI 29.08 kg/m Wt Readings from Last 3 Encounters: 05/23/24 56.7 kg (125 lb 1.6 oz) 04/01/24 56.2 kg (124 lb) 12/21/23 53.5 kg (118 lb) BP Readings from Last 3 Encounters: 05/23/24 113/79 04/01/24 122/85 02/25/24 120/81 Physical Exam Vitals reviewed. Constitutional: General: She is not in acute distress. Appearance: She is well-developed. She is not diaphoretic. Eyes: Conjunctiva/sclera: Conjunctivae normal. Neck: Thyroid: No thyromegaly. Vascular: No carotid bruit. Cardiovascular: Rate and Rhythm: Normal rate and regular rhythm. Heart sounds: Normal heart sounds. No murmur heard. Pulmonary: Effort: Pulmonary effort is normal. No respiratory distress. Breath sounds: Normal breath sounds. Abdominal: General: There is no distension. Palpations: Abdomen is soft. Musculoskeletal: Cervical back: Normal range of motion. Right lower leg: No edema. Left lower leg: No edema. Lymphadenopathy: Cervical: No cervical adenopathy. Skin: Capillary Refill: Capillary refill takes less than 2 seconds. Neurological: Mental Status: She is alert. Psychiatric: Mood and Affect: Mood normal. Behavior: Behavior normal. There are no preventive care reminders to display for this patient. Goals Blood Pressure < 140/90 High blood pressure makes your heart work too hard. It can cause heart attack, stroke and kidney disease. Blood pressure goal is 140/90 or less. You will complete 150 minutes of formal exercise per week. You will maintain a BMI of 18.5-24.9 TOTAL CHOLESTEROL < 199 Total cholesterol goal is less than 199 Triglyceride goal is less than 150 HDL or good cholesterol is above 45 LDL goal is less than 100 For any new medications prescribed today, patient was educated about indications for the medication, how to take the medication and potential side effects of the medications. Electronically signed by: Aury Mera M.D. [1] Patient Active Problem List Diagnosis Hypertension Chronic right-sided low back pain without sciatica Postartificial menopausal syndrome Hypothyroidism Vitamin D deficiency Spina bifida occulta Migraine Mixed hyperlipidemia Insomnia Osteopenia Chronic right hip pain Family history of colon cancer S/P bilateral breast reduction Chronic diarrhea Fibromyalgia Stress incontinence of urine Urge incontinence of urine Overactive bladder Sacroiliac joint dysfunction of left side Non-recurrent acute suppurative otitis media of left ear without spontaneous rupture of tympanic membrane Annual physical exam [2] Social History Tobacco Use Smoking status: Never Smokeless tobacco: Never Vaping Use Vaping status: Never Used Substance Use Topics Alcohol use: Not Currently Comment: SOCIALLY - once everyy 3 to 4 months Drug use: Yes Comment: uses gummies rarely [3] Current Outpatient Medications Medication Sig Dispense Refill albuterol 90 mcg/actuation inhaler Inhale 2 (two) puffs every 6 (six) hours as needed . 18 g 1 amitriptyline (ELAVIL) 25 MG tablet TAKE UP TO FOUR TABLETS BY MOUTH NIGHTLY FOR HEADACHES . 120 tablet 0 amLODIPine (NORVASC) 10 MG tablet Take 1 (one) tablet (10 mg total) by mouth daily . 90 tablet 4 BIOTIN ORAL Take 5,000 mcg by mouth once daily PM . COLLAGEN MISC 25 mL by Miscellaneous route daily . doxycycline hyclate (VIBRA-TABS) 100 MG tablet Take 1 (one) tablet (100 mg total) by mouth 2 (two) times a day . 20 tablet 0 estradioL (ESTRACE) 2 MG tablet Take 1 (one) tablet (2 mg total) by mouth daily PM . 90 tablet 4 fluticasone propionate (FLONASE) 50 mcg/actuation nasal spray 1 (one) spray by Each Nare route 2 (two) times a day as needed . glucosam/chond/hyalu/CF borate (MOVE FREE JOINT HEALTH ORAL) Take by mouth PM . levothyroxine (SYNTHROID, LEVOTHROID) 88 MCG tablet Take 1 (one) tablet (88 mcg total) by mouth once daily . 90 tablet 4 lisinopriL (PRINIVIL,ZESTRIL) 40 MG tablet Take 1 (one) tablet (40 mg total) by mouth daily PM . 90tablet 4 solifenacin (VESICARE) 10 MG tablet Take 1 (one) tablet (10 mg total) by mouth daily PM . 30 [id number] No current facility-administered medications for this visit. documented in this [id number] Telephone encounter Note* Telephone Encounter - Jeanie Mustafa LPN - 05/13/2024 8:46 AM EST This nurse placed call to patient, no answer, VM left with information provided by Albina Correa CNP. Call back number provided. [id number] Miscellaneous Notes* Telephone Encounter - Jeanie Mustafa LPN - 05/13/2024 8:46 AM EST This nurse placed call to patient, no answer, VM left with information provided by Albina Correa CNP. Call back number provided. * Telephone Encounter - Albina Correa CNP - 05/12/2024 4:04 PM EST From the notes, it appears patient does not desire follow-up with me. Will need to get refills fromP or treating neurologist. documented in this [id number] Telephone encounter Note* Telephone Encounter - Albina Correa CNP - 05/12/2024 4:04 PM EST From the notes, it appears patient does not desire follow-up with me. Will need to get refills fromPCP or treating neurologist. [id number] Evaluation + Plan note* Assessment & Plan Note - Yary Gudino CNP - 04/01/2024 1:02 PM ESTAssociated Problem(s): Upper respiratory tract infection I have ordered steroids for you to take. Please take these as directed. Please note that this medication can cause you to be hyper/jittery as well as increase her hunger and thirst drive. Please takethis medication with food as it can cause an upset stomach. [id number] Evaluation + Plan note* Assessment & Plan Note - Yary Gudino CNP - 04/01/2024 1:02 PM ESTAssociated Problem(s): Non-recurrent acute suppurative otitis media of left ear without spontaneousrupture of tympanic membrane At your appointment today you prescribed an antibiotic. Please take this medication as directed, and complete the entire treatment. Please note that some antibiotics can cause an upset stomach and/ordiarrhea. If you develop an upset stomach while taking the antibiotic, please eat something small when taking this medication. To prevent diarrhea you to take a probiotic which can be found [id number] or eat yogurt twicea day. [id number] Miscellaneous Notes* Assessment & Plan Note - Yary Gudino CNP - 04/01/2024 1:02 PM ESTAssociated Problem(s): Upper respiratory tract infection I have ordered steroids for you to take. Please take these as directed. Please note that this medication can cause you to be hyper/jittery as well as increase her hunger and thirst drive. Please takethis medication with food as it can cause an upset stomach. * Assessment & Plan Note - Yary Gudino CNP - 04/01/2024 1:02 PM EST Associated Problem(s): Non-recurrent acute suppurative otitis media of left ear without spontaneousrupture of tympanic membrane At your appointment today you prescribed an antibiotic. Please take this medication as directed, and complete the entire treatment. Please note that some antibiotics can cause an upset stomach and/ordiarrhea. If you develop an upset stomach while taking the antibiotic, please eat something small when taking this medication. To prevent diarrhea you to take a probiotic which can be found [id number] or eat yogurt twicea day. documented in this [id number] History of Present illness Narrative* Yary Gudino CNP - 04/01/2024 11:40 AM EST Images from the original note were not included. OFFICE VISIT PROGRESS NOTE Lima Jordan is a 53 y.o. female with a past medical history of Patient Active Problem List Diagnosis Hypertension Chronic right-sided low back pain without sciatica Postartificial menopausal syndrome Hypothyroidism Vitamin D deficiency Spina bifida occulta Migraine Mixed hyperlipidemia Insomnia Osteopenia Chronic right hip pain Family history of colon cancer S/P bilateral breast reduction Chronic tonsillitis and adenoiditis Chronic diarrhea Fibromyalgia Stress incontinence of urine Urge incontinence of urine Overactive bladder Sacroiliac joint dysfunction of left side Upper respiratory tract infection Non-recurrent acute suppurative otitis media of left ear without spontaneous rupture of tympanic membrane who presents to the office today for a cough/uri. Cough This is a new problem. The current episode started in the past 7 days. The problem has been unchanged. The problem occurs constantly. The cough is Non- productive. Associated symptoms include ear congestion, ear pain (left greater than right), headaches, nasal congestion, postnasal drip and rhinorrhea. Pertinent negatives include no chest pain or shortness of breath. The symptoms are aggravated bylying down. She has tried OTC cough suppressant for the symptoms. The treatment provided mild relief. Health Maintenance Topic Date Due Pneumococcal Vaccine: Age 50+ (1 of 1 - PCV) Never done Depression Screening/Follow-Up (PHQ-2/9) 05/20/2024 Influenza Vaccine (1) 09/05/2024 (Originally 11/08/2023) Zoster Vaccines (1 of 2) 11/22/2024 (Originally 2022) COVID-19 Vaccine (3 - 2023- season) 2024 (Originally 11/08/2023) Wellness Visit 05/20/2024 Mammogram 07/19/2024 Lipid Panel 11/22/2024 Colorectal Cancer Screening/Monitoring 07/22/2026 Tetanus: Every 10yrs 05/22/2032 Hepatitis C Screening Completed HIV Screening Completed Cervical Cancer Screening Discontinued The following portions of the patient's history were reviewed and updated as appropriate: allergies, current medications and problem list. Family History Problem Relation Age of Onset Heart disease Mother Hypertension Mother Heart attack Mother Stroke Mother Arthritis Mother It crippled her Lung cancer Mother Hypertension Father Heart disease Father Diabetes Father Stroke Father Alcohol abuse Father Hes been sober 1 yr now Colon cancer Maternal Grandmother COPD Paternal Grandmother Cancer Paternal Grandmother Colon cancer diagnosed at 52 at 58 COPD Paternal Grandfather Parkinson's Brother Alcohol abuse Brother Brother and father has always struggled with alcohol Breast cancer Neg Hx Social History Socioeconomic History Marital status: Tobacco Use Smoking status: Never Smokeless tobacco: Never Vaping Use Vaping status: Never Used Substance and Sexual Activity Alcohol use: Not Currently Comment: SOCIALLY - once everyy 3 to 4 months Drug use: Yes Comment: uses gummies rarely Sexual activity: Yes Partners: Male Comment: I'm to.same man 9 years Social Drivers of Health Financial Resource Strain: Low Risk (11/23/2023) Overall Financial Resource Strain (CARDIA) Difficulty of Paying Living Expenses: Not hard at all Food Insecurity: No Food Insecurity (11/23/2023) Hunger Vital Sign Worried About Running Out of Food in the Last Year: Never true Ran Out of Food in the Last Year: Never true Transportation Needs: No Transportation Needs (11/23/2023) PRAPARE - Transportation Lack of Transportation (Medical): No Lack of Transportation (Non-Medical): No Social Connections: Unknown (07/09/2021) Social Connection and Isolation Panel [NHANES] Frequency of Social Gatherings with Friends and Family: Three times a week Past Surgical History: Procedure Laterality Date APPENDECTOMY 1994 BLADDER SUSPENSION TRANSOBTURATOR N/A 04/22/2023 Procedure: BLADDER SUSPENSION TRANSOBTURATOR; Surgeon: Sophia William MD; Location: [facility] OR; Service: Urology CARPAL TUNNEL RELEASE Right 11/2011 SECTION, CLASSIC 92 and 95 Two 1991 1994 CHOLECYSTECTOMY 04/2017 COLONOSCOPY 2016 COLONOSCOPY N/A 07/22/2021 Procedure: COLONOSCOPY WITH BIOPSY; Surgeon: Negro Landrum MD; Location: [facility] [place]; Service: Gastroenterology CYST REMOVAL 09/2016 back CYSTO 04/15/2023 EGD N/A 07/22/2021 Procedure: ESOPHAGOGASTRODUODENOSCOPY WITH BIOPSY; Surgeon: Negro Landrum MD; Location: [facility] [place]; Service: Gastroenterology HYSTERECTOMY REDUCTION MAMMAPLASTY Bilateral 02/2020 TONSILLECTOMY Bilateral 11/13/2020 Procedure: TONSILLECTOMY; Surgeon: David Hawthorne MD; Location: [facility] OR; Service: Otolaryngology TONSILLECTOMY Allergies Allergen Reactions Asa [Aspirin] GI Intolerance Ct: Iodinated Contrast- Oral And Iv Dye Hives Morphine Hives Penicillins Hives Red Dye Sulfamethoxazole GI Intolerance GI problems Bactrim Trimethoprim GI Intolerance GI problems Bactrim Venlafaxine Other (See Comments) Severe agitation and mood changes Patient's Medications New Prescriptions ALBUTEROL 90 MCG/ACTUATION INHALER Inhale 2 (two) puffs every 6 (six) hours as needed . DOXYCYCLINE HYCLATE (VIBRA-TABS) 100 MG TABLET Take 1 (one) tablet (100 mg total) by mouth 2 (two) times a day . METHYLPREDNISOLONE (MEDROL DOSEPACK) 4 MG TABLET Follow package directions . Previous Medications AMITRIPTYLINE (ELAVIL) 25 MG TABLET TAKE UP TO 4 TABLETS NIGHTLY FOR HEADACHES . AMLODIPINE (NORVASC) 10 MG TABLET Take 1 (one) tablet (10 mg total) by mouth daily . BIOTIN ORAL Take 5,000 mcg by mouth once daily PM . COLLAGEN MISC 25 mL by Miscellaneous route daily . ESTRADIOL (ESTRACE) 2 MG TABLET Take 1 (one) tablet (2 mg total) by mouth daily PM . FLUTICASONE PROPIONATE (FLONASE) 50 MCG/ACTUATION NASAL SPRAY 1 (one) spray by Each Nare route 2 (two) times a day as needed . GLUCOSAM/CHOND/HYALU/CF BORATE (MOVE FREE JOINT HEALTH ORAL) Take by mouth PM . LEVOTHYROXINE (SYNTHROID, LEVOTHROID) 88 MCG TABLET Take 1 (one) tablet (88 mcg total) by mouth once daily . LISINOPRIL (PRINIVIL,ZESTRIL) 40 MG TABLET Take 1 (one) tablet (40 mg total) by mouth daily PM . ONDANSETRON (ZOFRAN-ODT) 4 MG DISINTEGRATING TABLET Dissolve 1 (one) tablet (4 mg total) on top of tongue every 8 (eight) hours as needed for nausea . SOLIFENACIN (VESICARE) 10 MG TABLET Take 1 (one) tablet (10 mg total) by mouth daily PM . Modified Medications No medications on file Discontinued Medications No medications on file Review of Systems Review of Systems Constitutional: Positive for fatigue. Negative for activity change and appetite change. HENT: Positive for congestion, ear pain (left greater than right), postnasal drip and rhinorrhea. Negative for sinus pressure and sinus pain. Respiratory: Positive for cough. Negative for shortness of breath. Cardiovascular: Negative for chest pain and palpitations. Neurological: Positive for headaches. Negative for dizziness, facial asymmetry and light-headedness. Psychiatric/Behavioral: Negative for agitation. The patient is not nervous/anxious. Vitals: 04/01/24 1117 BP: 122/85 BP Location: Right arm Patient Position: Sitting BP Cuff Size: Adult Pulse: 81 Resp: 16 Temp: 98 F (36.7 C) TempSrc: Oral SpO2: 95% Weight: 56.2 kg (124 lb) Height: 4' 7 BP Readings from Last 3 Encounters: 04/01/24 122/85 02/25/24 120/81 02/08/24 122/82 Wt Readings from Last 3 Encounters: 04/01/24 56.2 kg (124 lb) 12/21/23 53.5 kg (118 lb) 11/23/23 53.8 kg (118 lb 11.2 oz) Body mass index is 28.82 kg/m . Physical Exam Physical Exam Vitals reviewed. Constitutional: Appearance: Normal appearance. She is well-developed. HENT: Head: Normocephalic. Right Ear: External ear normal. Tympanic membrane is erythematous. Tympanic membrane is not retracted. Left Ear: External ear normal. A middle ear effusion is present. Tympanic membrane is retracted. Nose: Nose normal. Eyes: General: Lids are normal. Cardiovascular: Rate and Rhythm: Normal rate and regular rhythm. Heart sounds: Normal heart sounds. Pulmonary: Effort: Pulmonary effort is normal. Breath sounds: Examination of the right-middle field reveals wheezing. Examination of the left-middle field reveals wheezing. Examination of the right- lower field reveals wheezing and rhonchi. Examination of the left-lower field reveals wheezing and rhonchi. Wheezing and rhonchi present. Musculoskeletal: General: Normal range of motion. Skin: General: Skin is warm and dry. Neurological: General: No focal deficit present. Mental Status: She is alert and oriented to person, place, and time. Coordination: Coordination is intact. Gait: Gait is intact. Psychiatric: Attention and Perception: Attention normal. Mood and Affect: Mood normal. Speech: Speech normal. Behavior: Behavior normal. Behavior is cooperative. Thought Content: Thought content normal. Cognition and Memory: Cognition normal. Judgment: Judgment normal. OARRS/NARxCHECK Report Received and Assessed: Aury Mera MD on 05/21/2023 8:56 AM Date controlled substance agreement signed: 05/21/2023 Date of last drug screen: 05/21/2023 Assessment/Plan Problem List Items Addressed This Visit Respiratory Upper respiratory tract infection - Primary I have ordered steroids for you to take. Please take these as directed. Please note that this medication can cause you to be hyper/jittery as well as increase her hunger and thirst drive. Please takethis medication with food as it can cause an upset stomach. Relevant Medications doxycycline hyclate (VIBRA-TABS) 100 MG tablet albuterol 90 mcg/actuation inhaler methylPREDNISolone (MEDROL DOSEPACK) 4 mg tablet Nervous and Auditory Non-recurrent acute suppurative otitis media of left ear without spontaneous rupture of tympanic membrane At your appointment today you prescribed an antibiotic. Please take this medication as directed, and complete the entire treatment. Please note that some antibiotics can cause an upset stomach and/ordiarrhea. If you develop an upset stomach while taking the antibiotic, please eat something small when taking this medication. To prevent diarrhea you to take a probiotic which can be found [id number] or eat yogurt twicea day. Relevant Medications doxycycline hyclate (VIBRA-TABS) 100 MG tablet Goals Blood Pressure < 140/90 High blood pressure makes your heart work too hard. It can cause heart attack, stroke and kidney disease. Blood pressure goal is 140/90 or less. You will complete 150 minutes of formal exercise per week. You will maintain a BMI of 18.5-24.9 TOTAL CHOLESTEROL < 199 Total cholesterol goal is less than 199 Triglyceride goal is less than 150 HDL or good cholesterol is above 45 LDL goal is less than 100 For any new medications prescribed today, patient was educated about indications for the medication, how to take the medication and potential side effects of the medications. Electronically signed by: Yary Gudino CNP 04/01/24 1:02 PM documented in this [id number] NoteOFFICE VISIT PROGRESS NOTE Lima Jordan is a 53 y.o. female with a past medical history of Patient Active Problem List Diagnosis Hypertension Chronic right-sided low back pain without sciatica Postartificial menopausal syndrome Hypothyroidism Vitamin D deficiency Spina bifida occulta Migraine Mixed hyperlipidemia Insomnia Osteopenia Chronic right hip pain Family history of colon cancer S/P bilateral breast reduction Chronic tonsillitis and adenoiditis Chronic diarrhea Fibromyalgia Stress incontinence of urine Urge incontinence of urine Overactive bladder Sacroiliac joint dysfunction of left side Upper respiratory tract infection Non-recurrent acute suppurative otitis media of left ear without spontaneous rupture of tympanic membrane who presents to the office today for a cough/uri. Cough This is a new problem. The current episode started in the past 7 days. The problem has been unchanged. The problem occurs constantly. The cough is Non-productive. Associated symptoms include ear congestion, ear pain (left greater than right), headaches, nasal congestion, postnasal drip and rhinorrhea. Pertinent negatives include no chest pain or shortness of breath. The symptoms are aggravated by lying down. She has tried OTC cough suppressant for the symptoms. The treatment provided mild relief. Health Maintenance Topic Date Due Pneumococcal Vaccine: Age 50+ (1 of 1 - PCV) Never done Depression Screening/Follow-Up (PHQ-2/9) 05/20/2024 Influenza Vaccine (1) 09/05/2024 (Originally 11/08/2023) Zoster Vaccines (1 of 2) 11/22/2024 (Originally 2022) COVID-19 Vaccine (3 - 2023- season) 2024 (Originally 11/08/2023) Wellness Visit 05/20/2024 Mammogram 07/19/2024 Lipid Panel 11/22/2024 Colorectal Cancer Screening/Monitoring 07/22/2026 Tetanus: Every 10yrs 05/22/2032 Hepatitis C Screening Completed HIV Screening Completed Cervical Cancer Screening Discontinued The following portions of the patient's history were reviewed and updated as appropriate: allergies, current medications and problem list. Family History Problem Relation Age of Onset Heart disease Mother Hypertension Mother Heart attack Mother Stroke Mother Arthritis Mother It crippled her Lung cancer Mother Hypertension Father Heart disease Father Diabetes Father Stroke Father Alcohol abuse Father Hes been sober 1 yr now Colon cancer Maternal Grandmother COPD Paternal Grandmother Cancer Paternal Grandmother Colon cancer diagnosed at 52 at 58 COPD Paternal Grandfather Parkinson's Brother Alcohol abuse Brother Brother and father has always struggled with alcohol Breast cancer Neg Hx Social History Socioeconomic History Marital status: Tobacco Use Smoking status: Never Smokeless tobacco: Never Vaping Use Vaping status: Never Used Substance and Sexual Activity Alcohol use: Not Currently Comment: SOCIALLY - once everyy 3 to 4 months Drug use: Yes Comment: uses gummies rarely Sexual activity: Yes Partners: Male Comment: I'm to.same man 9 years Social Drivers of Health Financial Resource Strain: Low Risk (11/23/2023) Overall Financial Resource Strain (CARDIA) Difficulty of Paying Living Expenses: Not hard at all Food Insecurity: No Food Insecurity (11/23/2023) Hunger Vital Sign Worried About Running Out of Food in the Last Year: Never true Ran Out of Food in the Last Year: Never true Transportation Needs: No Transportation Needs (11/23/2023) PRAPARE - Transportation Lack of Transportation (Medical): No Lack of Transportation (Non-Medical): No Social Connections: Unknown (07/09/2021) Social Connection and Isolation Panel [NHANES] Frequency of Social Gatherings with Friends and Family: Three times a week Past Surgical History: Procedure Laterality Date APPENDECTOMY 1994 BLADDER SUSPENSION TRANSOBTURATOR N/A 04/22/2023 Procedure: BLADDER SUSPENSION TRANSOBTURATOR; Surgeon: Sophia William MD; Location: [facility] OR; Service: Urology CARPAL TUNNEL RELEASE Right 11/2011 SECTION, CLASSIC 92 and 95 Two 1991 1994 CHOLECYSTECTOMY 04/2017 COLONOSCOPY 2016 COLONOSCOPY N/A 07/22/2021 Procedure: COLONOSCOPY WITH BIOPSY; Surgeon: Negro Landrum MD; Location: [facility] [place]; Service: Gastroenterology CYST REMOVAL 09/2016 back CYSTO 04/15/2023 EGD N/A 07/22/2021 Procedure: ESOPHAGOGASTRODUODENOSCOPY WITH BIOPSY; Surgeon: Negro Landrum MD; Location: [facility] [place]; Service: Gastroenterology HYSTERECTOMY REDUCTION MAMMAPLASTY Bilateral 02/2020 TONSILLECTOMY Bilateral 11/13/2020 Procedure: TONSILLECTOMY; Surgeon: David Hawthorne MD; Location: [facility] OR; Service: Otolaryngology TONSILLECTOMY Allergies Allergen Reactions Asa [Aspirin] GI Intolerance Ct: Iodinated Contrast- Oral And Iv Dye Hives Morphine Hives Penicillins Hives Red Dye Sulfamethoxazole GI Intolera (more content not included)...[facility]12-02-2024 History of Present illness Narrative* Mary Cross MA - 02/08/2024 11:37 AM EST .Reason for Visit: Follow-up Pain location: low back Current pain Level: 7 Best pain Level: 0 Worst pain Level: 10 Pain description: squeezing Radiation: right leg , right foot, left leg, and left foot Sensory changes: No Motor changes: No Duration of pain: >6 months Increases pain: sitting Decreases pain: heat Patient's Goals: decrease pain with activity, improve ability to perform activities of daily living, and improve quality of life Acceptable level of pain: 3 Additional concerns: none Focused Review of Systems: Loss of bladder control: Denies Loss of bowel control: Denies Saddle anesthesia: Denies Recent falls: Denies Constipation: Denies * Boo Swann MD - 02/08/2024 11:22 AM EST Neurosurgery Clinic Note Neurosurgery [facility] 02/08/2024 Boo Swann MD [address] [place] [address] MEDICAL OFFICE [facility] [id number] Patient: Lima Jordan Date of : 1970 (53 y.o.) Referring Provider: No ref. provider found PCP: Aury Mera MD ASSESSMENT & PLAN: Lima Jordan is a 53 y.o. female presenting with chronic LBP, left hip pain, left sacral pain and intermittent pain/numbness in the posterior aspect of the left> right legs. On assessment todayshe has signs and symptoms of left SI joint dysfunction as well as pain on palpation of the left hip with a positive left BHUMIKA test. No MARQUISE, no focal neurological deficits and straight leg test negat tiago today. As per patient she had several epidural injections with no relief. I reviewed with the lumbar MRI images with the patient showing mild to moderate multilevel degenerative changes with lumbar facet arthropathy and no severe spinal canal or foraminal stenosis. Of note, she had a MRI in 2019 where she was noted to have a sacral fracture, a sacral x-rays were ordered for further investigation and can equally consider obtaining MRIs depending on the results. Given the signs and symptoms of left SI joint dysfunction with positive BHUMIKA test, discussed management options including fluoroscopic assisted left SI joint injections for pain control. Discussed the procedure, indications and risks including but not limited to infection, hemorrhage, persistent symptoms, intractable pain, neurological deficits, reaction to medication and she wants to proceed with the injection. Will thus start scheduling. Additional Comments: Answered questions and discussed assessment and plan at length. I instructed patient to contact me sooner with concerns. Time statement: A total of 37 minutes were spent [id number] with the patient during this encounter and over half of that time was spent on counseling and coordination of care. SUBJECTIVE: Lima Jordan is a 53 y.o. female presents to my clinic for the first time today. Due to her history and workup, I have been asked to consult on intractable LBP. As per last PA noteon 08/24/2023: Patient is a 52-year-old female presenting for evaluation of low back pain and bilateral lower extremity feet. Patient reports that this began approximately 20 years ago but has been continuously worsening. She does report a history of spina bifida and does report a possible lumbar mello rgery when she was a toddler. She does report that her low back pain does radiate to the posterior aspect of both of her lower extremities more severe on the left side. She does report that this radiates to the lateral aspect of her left foot. She does report numbness/tingling in the same distribution particularly on the left side. She does report that her symptoms in her left leg are constant but overall her pain does worsen with standing and walking. She denies any bowel/bladder incontinence or weakness. She has tried physical therapy and multiple rounds of epidural injections without much relief. Patient reports no new symptoms since last appointment. States she has chronic LBP, sacral pain, left> right hip and leg pain that got worse after a fall sustained 7 years ago. She was not evaluated at that time but had a hip MRI in 2019 where a sacral fracture was reported. She had several epidural injections, last one in April with no improvement in her symptoms. Reports having intermittent numbness in the entire feet when sitting for long period of time. Walking usually improves the pain and she has no focal weakness nor MARQUISE. No thoracic/cervical pain and no other focal neurological symptoms. No recent trauma/fall and no infection symptoms. No improvement with PT. She is also followed by podiatry for her left foot and is pending surgical intervention. Reason for Visit: Follow-up Pain location: low back Current pain Level: 7 Best pain Level: 0 Worst pain Level: 10 Pain description: squeezing Radiation: right leg , right foot, left leg, and left foot Sensory changes: No Motor changes: No Duration of pain: >6 months Increases pain: sitting Decreases pain: heat Patient's Goals: decrease pain with activity, improve ability to perform activities of daily living, and improve quality of life Acceptable level of pain: 3 Additional concerns: none Focused Review of Systems: Loss of bladder control: Denies Loss of bowel control: Denies Saddle anesthesia: Denies Recent falls: Denies Constipation: Denies Review of Systems: All systems reviewed and negative except pertinent positives and negatives documented in the History of Present Illness (HPI). Medications: has a current medication list which includes the following prescription(s): amitriptyline, amlodipine, biotin, collagen, estradiol, fluticasone propionate, glucosam/chond/hyalu/cf borate, levothyroxine, lisinopril, and solifenacin. Active Ambulatory Problems Diagnosis Date Noted Hypertension Chronic right-sided low back pain without sciatica 06/26/2011 Postartificial menopausal syndrome 06/26/2011 Hypothyroidism 07/09/2011 Vitamin D deficiency 12/21/2013 Spina bifida occulta 06/26/2011 Migraine 06/26/2011 Mixed hyperlipidemia 06/26/2011 Insomnia 07/22/2017 Osteopenia 07/22/2017 Chronic right hip pain 10/12/2018 Family history of colon cancer 01/12/2020 S/P bilateral breast reduction 02/20/2020 Chronic tonsillitis and adenoiditis 11/05/2020 Chronic diarrhea 06/26/2021 Fibromyalgia 11/11/2022 Stress incontinence of urine 04/15/2023 Urge incontinence of urine 04/15/2023 Overactive bladder 04/15/2023 Resolved Ambulatory Problems Diagnosis Date Noted Stroke (HCC) 05/08/2011 Obesity Chest pain 06/11/2015 Disorder of bone and articular cartilage 06/14/2012 Thyroid function test abnormal 06/26/2011 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 Osteoporosis 07/22/2017 Macromastia 10/05/2019 Rectal bleeding 01/12/2020 Fatigue 06/18/2020 Preop examination 11/08/2020 TIA (transient ischemic attack) 11/08/2020 COVID-19 01/23/2021 Cough 01/23/2021 Sinusitis 01/23/2021 Epigastric pain 06/26/2021 Encounter for well adult exam with abnormal findings 05/15/2022 Hair loss 05/15/2022 Dysuria 12/24/2022 Cognitive change 05/21/2023 Past Medical History: Diagnosis Date Anemia Arthritis Back pain Bladder problem Endometriosis 1996 GERD (gastroesophageal reflux disease) Hypothyroid Low back pain 06/26/2011 Migraines Neuromuscular disorder (HCC) 2014 Peptic ulceration Past Surgical History: Procedure Laterality Date APPENDECTOMY 1994 BLADDER SUSPENSION TRANSOBTURATOR N/A 04/22/2023 Procedure: BLADDER SUSPENSION TRANSOBTURATOR; Surgeon: Sophia William MD; Location: [facility] OR; Service: Urology CARPAL TUNNEL RELEASE Right 11/2011 SECTION, CLASSIC 92 and 95 Two 1992 1994 CHOLECYSTECTOMY 04/2017 COLONOSCOPY 2016 COLONOSCOPY N/A 07/22/2021 Procedure: COLONOSCOPY WITH BIOPSY; Surgeon: Negro Landrum MD; Location: [facility] [place] OR; Service: Gastroenterology CYST REMOVAL 09/2016 back CYSTO 04/15/2023 EGD N/A 07/22/2021 Procedure: ESOPHAGOGASTRODUODENOSCOPY WITH BIOPSY; Surgeon: Negro Landrum MD; Location: [facility] [place]; Service: Gastroenterology HYSTERECTOMY REDUCTION MAMMAPLASTY Bilateral 02/2020 TONSILLECTOMY Bilateral 11/13/2020 Procedure: TONSILLECTOMY; Surgeon: David Hawthorne MD; [facility]: [facility] [place]; Service: Otolaryngology TONSILLECTOMY OBJECTIVE: Physical Examination: BP 122/82 (BP Location: Left arm, Patient Position: Sitting) Pulse 87 SpO2 97% General Appearance: Alert, well appearing, and in no acute distress. Alert, oriented x 3. JOSE MANUEL bilaterally and EOMI. Normal gait. No pain at palpation of the cervical/thoracic spine, pain at palpation of the lower lumbar region, no step-off. Pain at palpation of the left hip and left SI joint reproducing her pain Straight leg test positive for axial lumbar pain and pain in the left sacral region and left leg at45 deg. Left BHUMIKA test positive RLE: 5/5 hf, 5/5 ke, 5/5 df, 5/5 pf, 5/5 ehl LLE: 5/5 hf, 5/5 ke, 5/5 df, 5/5 pf, 5/5 ehl No gross sensory deficits /4 b/l patellar/achilles DTRs. No Cullen, no clonus, no Babinski. Head: atraumatic Neck: supple, normal ROM, no meningismus CV: regular pulses, no peripheral edema Resp: no respiratory distress, no use of accessory muscle Abdomen: non-distended Musculoskeletal: normal bulk, normal tone DATA REVIEWED: Radiology images below independently reviewed by me and agree with final radiology reports: MRI Lumbar Spine without contrast dated 09/24/2023 from [facility] showed : 1. Stable MRI of the lumbar spine. 2. Mild degenerative disc disease at L3-4 through L5-S1. There is moderate facet arthropathy on theright at L5-S1. 3. No spinal canal stenosis. There is mild foraminal narrowing at L5-S1. Xray left foot from 12/21/2023: There is an inferior and retro-calcaneal heel spur noted. No signs of stress fracture noted. Patient has a bony spur on the lateral side of the fifth metatarsal base. MRI right hip dated 11/04/2018 showed: 1. Minimal right hip osteoarthritis without significant chondrosis. 2. Right proximal hamstring tendinosis and partial tearing. 3. Nonspecific edema involving the ischial femoral space. 4. Mild degenerative disc disease. 5. Suspect chronic healed right sacral ala fracture. documented in this [id number] NoteNeurosurgery Clinic Note Neurosurgery [facility] 02/08/2024 Boo Swann MD [address] [facility] MED[facility] [id number] Patient: Lima Jordan Date of : 1970 (53 y.o.) Referring Provider: No ref. provider found PCP: Aury Mera MD ASSESSMENT & PLAN: Lima Jordan is a 53 y.o. female presenting with chronic LBP, left hip pain, left sacral pain and intermittent pain/numbness in the posterior aspect of the left> right legs. On assessment today she has signs and symptoms of left SI joint dysfunction as well as pain on palpation of the left hip with a positive left BHUMIKA test. No MARQUISE, no focal neurological deficits and straight leg test negative today. As per patient she had several epidural injections with no relief. I reviewed with the lumbar MRI images with the patient showing mild to moderate multilevel degenerative changes with lumbar facet arthropathy and no severe spinal canal or foraminal stenosis. Of note, she had a MRI in 2019 where she was noted to have a sacral fracture, a sacral x-rays were ordered for further investigation and can equally consider obtaining MRIs depending on the results. Given the signs and symptoms of left SI joint dysfunction with positive BHUMIKA test, discussed management options including fluoroscopic assisted left SI joint injections for pain control. Discussed the procedure, indications and risks including but not limited to infection, hemorrhage, persistent symptoms, intractable pain, neurological deficits, reaction to medication and she wants to proceed with the injection. Will thus start scheduling. Additional Comments: Answered questions and discussed assessment and plan at length. I instructed patient to contact me sooner with concerns. Time statement: A total of 37 minutes were spent [id number] with the patient during this encounter and over half of that time was spent on counseling and coordination of care. SUBJECTIVE: Lima Jordan is a 53 y.o. female presents to my clinic for the first time today. Due to her history and workup, I have been asked to consult on intractable LBP. As per last PA note on 08/24/2023: Patient is a 52-year-old female presenting for evaluation of low back pain and bilateral lower extremity feet. Patient reports that this began approximately 20 years ago but has been continuously worsening. She does report a history of spina bifida and does report a possible lumbar surgery when she was a toddler. She does report that her low back pain does radiate to the posterior aspect of both of her lower extremities more severe on the left side. She does report that this radiates to the lateral aspect of her left foot. She does report numbness/tingling in the same distribution particularly on the left side. She does report that her symptoms in her left leg are constant but overall her pain does worsen with standing and walking. She denies any bowel/bladder incontinence or weakness. She has tried physical therapy and multiple rounds of epidural injections without much relief. Patient reports no new symptoms since last appointment. States she has chronic LBP, sacral pain, left> right hip and leg pain that got worse after a fall sustained 7 years ago. She was not evaluated at that time but had a hip MRI in 2018 where a sacral fracture was reported. She had several epidural injections, last one in April with no improvement in her symptoms. Reports having intermittent numbness in the entire feet when sitting for long period of time. Walking usually improves the pain and she has no focal weakness nor MARQUISE. No thoracic/cervical pain and no other focal neurological symptoms. No recent trauma/fall and no infection symptoms. No improvement with PT. She is also followed by podiatry for her left foot and is pending surgical intervention. Reason for Visit: Follow-up Pain location: low back Current pain Level: 7 Best pain Level: 0 Worst pain Level: 10 Pain description: squeezing Radiation: right leg , right foot, left leg, and left foot Sensory changes: No Motor changes: No Duration of pain: >6 months Increases pain: sitting Decreases pain: heat Patient's Goals: decrease pain with activity, improve ability to perform activities of daily living, and improve quality of life Acceptable level of pain: 3 Additional concerns: none Focused Review of Systems: Loss of bladder control: Denies Loss of bowel control: Denies Saddle anesthesia: Denies Recent falls: Denies Constipation: Denies Review of Systems: All systems reviewed and negative except pertinent positives and negatives documented in the History of Present Illness (HPI). Medications: has a current medication list which includes the following prescription(s): amitriptyline, amlodipine, biotin, collagen, estradiol, fluticasone p (more content not included)...[facility] [id number] History of Present illness Narrative* Annabelle Reed LPN - 12/25/2023 9:15 AM EDT Patient here today as a new patient for abdominal panniculus. * Karena Reno MD - 12/25/2023 9:15 AM EDT Referring Provider: Aury Mera MD Reason for Consultation: Lima Jordan is a 53 y.o. female Patient presents for Chief Complaint Patient presents with New Patient Abdominal Panniculus . There were no vitals filed for this visit. Patient here today as a new patient for abdominal panniculus. General Examination General Appearance: comfortable, looks well, no acute distress. Head: Normocephalic. Cranial nerves grossly intact. Neck/Thyroid: supple. Skin: Warm and dry. Lungs: Non labored respirations. Abdomen: soft, nontender, nondistended. All pertinent labs, imaging, and testing were personally reviewed by me on 12/25/2023. Visit Summary Here for evaluation of excess skin on lower abdomen. She has frequent intertrigo rashes. This has been treated with nystatin cream with varying success. Excess skin of lower abdomen. There is a proximally 1 centimeter redundancy. No palpable hernias. Laxity of the abdominal wall musculature. Patient was explained the difference between abdominoplasty and a panniculectomy. And abdominoplasty would likely be the better option. She has very little redundant tissue and would likely only has a few centimeters of the excess tissue removed with a panniculectomy. [facility] NotePatient: Lima Jordan Date of : 1970 (53 y.o.) PCP: Aury Mera MD Procedures ASSESSMENT/PLAN: Lima Jordan 53 y.o. female with history of plantar fasciitis heel spur syndrome, bone spur fifth metatarsal base with ganglion cyst on the left foot. Plan: Patient was told to stretch out the plantar fascia with a towel or belt before walking. I prescribed dispensed 1 Erath strap to be worn with good stiff soled shoes daily. I prescribed a Medrol Dosepak to help calm down the heel spur and ganglion cyst type symptoms. Patient told to ice the heel down at the end the day. Reappoint in 2 weeks if no better we may consider a cortisone shot or physical therapy. I also may aspirate the ganglion type cyst on the fifth metatarsal base left foot. Assessment & plan notes cannot be loaded without a specified hospital service. SUBJECTIVE: History Since Last Visit: Patient a 53-year-old female seen at the office complaining of pain underneath her left heel. Patient relates she has been favoring it for the last 6 months. Patient's been rolling her foot and aggravating the fifth metatarsal base which is sore now. Patient has tried some [id number] inserts and Advil without improvement. Patient denies any injury to the foot. Review of Systems: OBJECTIVE: Physical Examination: Integument-skin is warm dry and supple on the left foot. Neuro-intact left foot. Musculoskeletal-patient has pain underneath the medial and plantar aspects of the calcaneal tubercle left foot. Patient is a very tight plantar fascia on the left foot. Patient had pain along the lateral side of the fifth metatarsal base. Patient has a 5 mm soft tissue mass over the dorsal lateral aspect of the fifth metatarsal base which appears to be part of the peroneal brevis tendon consistent with a ganglion cyst. Vascular-DP PT pulses are palpable on the left foot. Cap refill times less than 3 seconds the foot is warm to touch. BP 118/79 (BP Location: Right arm, Patient Position: Sitting, BP Cuff Size: Adult) Pulse 83 Temp 98 degrees F (36.7 degrees C) (Temporal) Resp 17 Ht 4' 7 Wt 53.5 kg (118 lb) SpO2 95% BMI 27.43 kg/m Laboratory and Additional Data Reviewed: Reviewed:[id number]} MR Lumbar Spine Without Contrast Narrative: EXAMINATION: MR LUMBAR SPINE WITHOUT CONTRAST HISTORY: ORDERING SYSTEM PROVIDED HISTORY: Low back pain, symptoms persist with > 6 wks treatment, TECHNOLOGIST PROVIDED HISTORY: Illness/Other Reason for exam: low back pain radiating into bilateral legs for one year: no known injury: no hx of cancer: Encounter Type: Unknown Additional signs and symptoms: n ORDERING SYSTEM PROVIDED DIAGNOSIS CODES: Q76.0 Spina bifida occulta M54.50 Low back pain, unspecified back pain laterality, unspecified chronicity, unspecified whether sciatica present COMPARISON: MRI lumbar spine, 08/14/2017. TECHNIQUE: Multiplanar, multisequence MRI imaging of the lumbar spine without contrast. FINDINGS: Alignment normal. There is no spondylolysis appreciated. No spondylolisthesis. No abnormal signal in the bone marrow spaces. No compression fractures. L5-S1, moderate facet arthropathy on the right and mild facet arthropathy on the left. This is stable. Mild disc desiccation and mild disc space narrowing along the posterior margin of the disc space stable. No spinal canal stenosis. Disc space narrowing results in mild foraminal narrowing bilaterally. This level is stable. L4-5, mild disc desiccation. No spinal stenosis. Facet joints unremarkable. No significant neural foraminal narrowing. L3-4, mild disc desiccation. No spinal stenosis. No foraminal narrowing. L2-3, no significant degenerative changes. No spinal stenosis or foraminal narrowing. L1-2, no significant degenerative changes. No spinal stenosis or foraminal narrowing. No abnormal signal in the conus medullaris. No paraspinal mass. Impression: 1. Stable MRI of the lumbar spine. 2. Mild degenerative disc disease at L3-4 through L5-S1. There is moderate facet arthropathy on the right at L5-S1. 3. No spinal canal stenosis. There is mild foraminal narrowing at L5-S1. DMG/cdr Workstation ID: [id number] AUTHENTICATED BY ROMY BILLY, ON 12/21/2023 09:46:38[facility]09-16-2024 Evaluation + Plan note* Assessment & Plan Note - Aury Mera MD - 11/23/2023 8:58 AM EDTAssociated Problem(s): Mixed hyperlipidemia Chronic, improving. last triglycerides were elevated so we will repeat at this time. She is on a great job with her dietary changes. [id number] Miscellaneous Notes* Assessment & Plan Note - Aury Mera MD - 11/23/2023 8:58 AM EDTAssociated Problem(s): Mixed hyperlipidemia Chronic, improving. last triglycerides were elevated so we will repeat at this time. She is on a great job with her dietary changes. * Assessment & Plan Note - Aury Mera MD - 11/23/2023 8:57 AM EDTAssociated Problem(s): Postartificial menopausal syndrome Chronic, stable on estradiol. Discussed weaning in about 7-9 years. * Assessment & Plan Note - Aury Mera MD - 11/23/2023 8:57 AM EDTAssociated Problem(s): Hypothyroidism Chronic, medication refill due. Labs ordered * Assessment & Plan Note - Aury Mera MD - 11/23/2023 8:57 AM EDTAssociated Problem(s): Hypertension Chronic, controlled. Goal < 140/90. Continue Lisinopril and amlodipine documented in this [id number] Evaluation + Plan note* Assessment & Plan Note - Aury Mera MD - 11/23/2023 8:57 AM EDTAssociated Problem(s): Postartificial menopausal syndrome Chronic, stable on estradiol. Discussed weaning in about 7-9 years. [id number] Evaluation + Plan note* Assessment & Plan Note - Aury Mera MD - 11/23/2023 8:57 AM EDTAssociated Problem(s): Hypothyroidism Chronic, medication refill due. Labs ordered [id number] Evaluation + Plan note* Assessment & Plan Note - Aury Mera MD - 11/23/2023 8:57 AM EDTAssociated Problem(s): Hypertension Chronic, controlled. Goal < 140/90. Continue Lisinopril and amlodipine [id number] Gordorangel Jordan is a 53 y.o. female Assessment/Plan: Problem List Items Addressed This Visit Endocrine Hypothyroidism Chronic, medication refill due. Labs ordered Relevant Medications levothyroxine (SYNTHROID, LEVOTHROID) 88 MCG tablet Other Relevant Orders TSH T4, Free Cardiovascular and Mediastinum Hypertension - Primary Chronic, controlled. Goal < 140/90. Continue Lisinopril and amlodipine Relevant Medications amLODIPine (NORVASC) 10 MG tablet lisinopriL (PRINIVIL,ZESTRIL) 40 MG tablet Other Relevant Orders Comprehensive Metabolic Panel Other Postartificial menopausal syndrome Chronic, stable on estradiol. Discussed weaning in about 7-9 years. Relevant Medications estradioL (ESTRACE) 2 MG tablet Mixed hyperlipidemia Chronic, improving. last triglycerides were elevated so we will repeat at this time. She is on a great job with her dietary changes. Relevant Orders Lipid Panel Other Visit Diagnoses Symptomatic abdominal panniculus will refer to plastic surgery. Relevant Orders Ambulatory referral to Plastic Surgery Return in about 6 months (around 05/22/2024) for Annual physical. Limawalter Jordan is a 53 y.o. female who presents for Chief Complaint Patient presents with Hypertension HPI She has a history of hypertension, hypothyroidism, fibromyalgia, insomnia and postmenopausal hot flashes. She presents today for follow-up on her chronic issues and medication refills. She has no acute concerns today. She has had a history of and since then has had some additional fat near the abdominal area that has become irritated off-and-on. She like to discuss possibility of getting this removed. Hypothyroidism- doing well. No symptoms. She is taking medication daily, in the morning along with no other medications. She denies any symptoms of high or low thyroid. She has lost some weight by intermittent fasting. She eats from 3 PM to 9 p.m. She is also doing her vitamins which includes well-child purchased online. She has decreased fats, sugars, gluten. Patient Active Problem List Diagnosis Hypertension Chronic right-sided low back pain without sciatica Postartificial menopausal syndrome Hypothyroidism Vitamin D deficiency Spina bifida occulta Migraine Mixed hyperlipidemia Insomnia Osteopenia Chronic right hip pain Family history of colon cancer S/P bilateral breast reduction Chronic tonsillitis and adenoiditis Chronic diarrhea Fibromyalgia Stress incontinence of urine Urge incontinence of urine Overactive bladder Past Surgical History: Procedure Laterality Date APPENDECTOMY 1994 BLADDER SUSPENSION TRANSOBTURATOR N/A 04/22/2023 Procedure: BLADDER SUSPENSION TRANSOBTURATOR; Surgeon: Sophia William MD; Location: [facility] OR; Service: Urology CARPAL TUNNEL RELEASE Right 11/2011 SECTION, CLASSIC 92 and 95 Two 1991 1994 CHOLECYSTECTOMY 04/2017 COLONOSCOPY 2016 COLONOSCOPY N/A 07/22/2021 Procedure: COLONOSCOPY WITH BIOPSY; Surgeon: Negro Landrum MD; Location: [facility] [place]; Service: Gastroenterology CYST REMOVAL 09/2016 back CYSTO 04/15/2023 EGD N/A 07/22/2021 Procedure: ESOPHAGOGASTRODUODENOSCOPY WITH BIOPSY; Surgeon: Negro Landrum MD; Location: [facility] [place] [facility]; Service: Gastroenterology HYSTERECTOMY REDUCTION MAMMAPLASTY Bilateral 02/2020 TONSILLECTOMY Bilateral 11/13/2020 Procedure: TONSILLECTOMY; Surgeon: David Hawthorne MD; Location: [facility] OR; Service: Otolaryngology TONSILLECTOMY Family History Problem Relation Age of Onset Heart disease Mother Hypertension Mother Heart attack Mother Stroke Mother Arthritis Mother It crippled her Lung cancer Mother Hypertension Father Heart disease Father Diabetes Father Stroke Father Alcohol abuse Father Hes been sober 1 yr now Colon cancer Maternal Grandmother COPD Paternal Grandmother Cancer Paternal Grandmother Colon cancer diagnosed at 52 at 58 COPD Paternal Grandfather Parkinson's Brother Alcohol abuse Brother Brother and father has always struggled with alcohol Breast cancer Neg Hx Social History Tobacco Use Smoking status: Never Smokeless tobacco: Never Vaping Use Vaping status: Never Used Substance Use Topics Alcohol use: Not Currently Comment: SOCIALLY - once everyy 3 to 4 months Drug use: Yes Comment: Delta 9/ THC gummies - couple times a year Current Outpatient Medications Medication Sig Dispense Refill amitriptyline (ELAVIL) 25 MG tablet Take up to 4 tabs (100mg) nightly for headaches . 120 tablet 2 BIOTIN ORAL Take 5,000 mcg by mouth once daily PM . COLLAGEN MISC 25 mL by Miscellaneous route daily . fluticasone propionate (FLONASE) 50 mcg/actuation nasal spray 1 (one) spray by Each Nare route 2 (two) times a day as needed . glucosam/chond/hyalu/CF borate (MOVE FREE J (more content not included)...[facility]09-16-2024 History of Present illness Narrative* Aury Mera MD - 11/23/2023 8:44 AM EDT Images from the original note were not included. Lima Jordan is a 53 y.o. female Assessment/Plan: Problem List Items Addressed This Visit Endocrine Hypothyroidism Chronic, medication refill due. Labs ordered Relevant Medications levothyroxine (SYNTHROID, LEVOTHROID) 88 MCG tablet Other Relevant Orders TSH T4, Free Cardiovascular and Mediastinum Hypertension - Primary Chronic, controlled. Goal < 140/90. Continue Lisinopril and amlodipine Relevant Medications amLODIPine (NORVASC) 10 MG tablet lisinopriL (PRINIVIL,ZESTRIL) 40 MG tablet Other Relevant Orders Comprehensive Metabolic Panel Other Postartificial menopausal syndrome Chronic, stable on estradiol. Discussed weaning in about 7-9 years. Relevant Medications estradioL (ESTRACE) 2 MG tablet Mixed hyperlipidemia Chronic, improving. last triglycerides were elevated so we will repeat at this time. She is on a great job with her dietary changes. Relevant Orders Lipid Panel Other Visit Diagnoses Symptomatic abdominal panniculus will refer to plastic surgery. Relevant Orders Ambulatory referral to Plastic Surgery Return in about 6 months (around 05/22/2024) for Annual physical. Lima Jordan is a 53 y.o. female who presents for Chief Complaint Patient presents with Hypertension HPI She has a history of hypertension, hypothyroidism, fibromyalgia, insomnia and postmenopausal hot flashes. She presents today for follow-up on her chronic issues and medication refills. She has no acute concerns today. She has had a history of and since then has had some additional fat near the abdominal area that has become irritated off-and-on. She like to discuss possibility of getting this removed. Hypothyroidism- doing well. No symptoms. She is taking medication daily, in the morning along with no other medications. She denies any symptoms of high or low thyroid. She has lost some weight by intermittent fasting. She eats from 3 PM to 9 p.m. She is also doing her vitamins which includes well-child purchased online. She has decreased fats, sugars, gluten. Patient Active Problem List Diagnosis Hypertension Chronic right-sided low back pain without sciatica Postartificial menopausal syndrome Hypothyroidism Vitamin D deficiency Spina bifida occulta Migraine Mixed hyperlipidemia Insomnia Osteopenia Chronic right hip pain Family history of colon cancer S/P bilateral breast reduction Chronic tonsillitis and adenoiditis Chronic diarrhea Fibromyalgia Stress incontinence of urine Urge incontinence of urine Overactive bladder Past Surgical History: Procedure Laterality Date APPENDECTOMY 1994 BLADDER SUSPENSION TRANSOBTURATOR N/A 04/22/2023 Procedure: BLADDER SUSPENSION TRANSOBTURATOR; Surgeon: Sophia William MD; Location: [facility] OR; Service: Urology CARPAL TUNNEL RELEASE Right 11/2011 SECTION, CLASSIC 92 and 95 Two 1991 1994 CHOLECYSTECTOMY 04/2017 COLONOSCOPY 2016 COLONOSCOPY N/A 07/22/2021 Procedure: COLONOSCOPY WITH BIOPSY; Surgeon: Negro Landrum MD; Location: [facility] [place] OR; Service: Gastroenterology CYST REMOVAL 09/2016 back CYSTO 04/15/2023 EGD N/A 07/22/2021 Procedure: ESOPHAGOGASTRODUODENOSCOPY WITH BIOPSY; Surgeon: Negro Landrum MD; Location: [facility] [place]; Service: Gastroenterology HYSTERECTOMY REDUCTION MAMMAPLASTY Bilateral 02/2020 TONSILLECTOMY Bilateral 11/13/2020 Procedure: TONSILLECTOMY; Surgeon: David Hawthorne MD; Location: [facility] OR; Service: Otolaryngology TONSILLECTOMY Family History Problem Relation Age of Onset Heart disease Mother Hypertension Mother Heart attack Mother Stroke Mother Arthritis Mother It crippled her Lung cancer Mother Hypertension Father Heart disease Father Diabetes Father Stroke Father Alcohol abuse Father Hes been sober 1 yr now Colon cancer Maternal Grandmother COPD Paternal Grandmother Cancer Paternal Grandmother Colon cancer diagnosed at 52 at 58 COPD Paternal Grandfather Parkinson's Brother Alcohol abuse Brother Brother and father has always struggled with alcohol Breast cancer Neg Hx Social History Tobacco Use Smoking status: Never Smokeless tobacco: Never Vaping Use Vaping status: Never Used Substance Use Topics Alcohol use: Not Currently Comment: SOCIALLY - once everyy 3 to 4 months Drug use: Yes Comment: Delta 9/ THC gummies - couple times a year Current Outpatient Medications Medication Sig Dispense Refill amitriptyline (ELAVIL) 25 MG tablet Take up to 4 tabs (100mg) nightly for headaches . 120 tablet 2 BIOTIN ORAL Take 5,000 mcg by mouth once daily PM . COLLAGEN MISC 25 mL by Miscellaneous route daily . fluticasone propionate (FLONASE) 50 mcg/actuation nasal spray 1 (one) spray by Each Nare route 2 (two) times a day as needed . glucosam/chond/hyalu/CF borate (MOVE FREE JOINT HEALTH ORAL) Take by mouth PM . solifenacin (VESICARE) 10 MG tablet Take 1 (one) tablet (10 mg total) by mouth daily PM . 30 [id number] amLODIPine (NORVASC) 10 MG tablet Take 1 (one) tablet (10 mg total) by mouth daily . 90 tablet 4 estradioL (ESTRACE) 2 MG tablet Take 1 (one) tablet (2 mg total) by mouth daily PM . 90 tablet 4 levothyroxine (SYNTHROID, LEVOTHROID) 88 MCG tablet Take 1 (one) tablet (88 mcg total) by mouth once daily . 90 tablet 4 lisinopriL (PRINIVIL,ZESTRIL) 40 MG tablet Take 1 (one) tablet (40 mg total) by mouth daily PM . 90tablet 4 No current facility-administered medications for this visit. Review of Systems Constitutional: Negative for activity change, diaphoresis and fatigue. Respiratory: Negative for shortness of breath. Cardiovascular: Negative for chest pain. Gastrointestinal: Negative for abdominal pain, constipation and diarrhea. Genitourinary: Negative. Skin: Negative for rash. Neurological: Negative for dizziness and headaches. Psychiatric/Behavioral: Negative for dysphoric mood. The patient is not nervous/anxious. Physical Exam: BP 127/82 (BP Location: Right arm, Patient Position: Sitting, BP Cuff Size: Adult) Pulse 78 Temp 98.1 F (36.7 C) (Temporal) Resp 16 Ht 4' 7 Wt 53.8 kg (118 lb 11.2 oz) SpO2 97% BMI 27.59 kg/m Wt Readings from Last 3 Encounters: 11/23/23 53.8 kg (118 lb 11.2 oz) 09/24/23 55.8 kg (123 lb) 05/21/23 56.1 kg (123 lb 11.2 oz) BP Readings from Last 3 Encounters: 11/23/23 127/82 08/24/23 117/76 05/21/23 128/89 Physical Exam Vitals reviewed. Constitutional: General: She is not in acute distress. Appearance: She is not ill-appearing. HENT: Head: Normocephalic. Eyes: Conjunctiva/sclera: Conjunctivae normal. Cardiovascular: Rate and Rhythm: Normal rate. Pulmonary: Effort: Pulmonary effort is normal. No respiratory distress. Musculoskeletal: Right lower leg: No edema. Left lower leg: No edema. Skin: Findings: No rash. Neurological: Mental Status: She is alert and oriented to person, place, and time. Psychiatric: Mood and Affect: Mood normal. Behavior: Behavior normal. Thought Content: Thought content normal. Goals Blood Pressure < 140/90 High blood pressure makes your heart work too hard. It can cause heart attack, stroke and kidney disease. Blood pressure goal is 140/90 or less. You will complete 150 minutes of formal exercise per week. You will maintain a BMI of 18.5-24.9 TOTAL CHOLESTEROL < 199 Total cholesterol goal is less than 199 Triglyceride goal is less than 150 HDL or good cholesterol is above 45 LDL goal is less than 100 Please note: Portions of this chart may have been created with [employer] voice recognition software. Occasional wrong-word or sound-like substitutions may have occurred due to inherent limitations of the voice recognition software. Please read the chart carefully and recognize, using context, where the substitutions have occurred. For any new medications prescribed today, patient was educated about indications for the medication, how to take the medication and potential side effects of the medications. documented in this [id number] NotePatient Information: Lima Jordan is a 52 y.o. female 1970 HPI Patient is a 52-year-old female presenting for evaluation of low back pain and bilateral lower extremity feet. Patient reports that this began approximately 20 years ago but has been continuously worsening. She does report a history of spina bifida and does report a possible lumbar surgery when she was a toddler. She does report that her low back pain does radiate to the posterior aspect of both of her lower extremities more severe on the left side. She does report that this radiates to the lateral aspect of her left foot. She does report numbness/tingling in the same distribution particularly on the left side. She does report that her symptoms in her left leg are constant but overall her pain does worsen with standing and walking. She denies any bowel/bladder incontinence or weakness. She has tried physical therapy and multiple rounds of epidural injections without much relief. 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 She has a past surgical history that includes Hysterectomy; Cyst Removal (09/2016); Carpal tunnel release (Right, 11/2011); Cholecystectomy (04/2017); Colonoscopy (2016); Reduction mammaplasty (Bilateral, 02/2020); Tonsillectomy (Bilateral, 11/13/2020); Colonoscopy (N/A, 07/22/2021); Egd (N/A, 07/22/2021); Appendectomy (1994); section, classic (92 and 95); Cysto (04/15/2023); and Bladder Suspension Transobturator (N/A, 04/22/2023). Her family history includes Alcohol abuse in her brother and father; Arthritis in her mother; COPD in her paternal grandfather and paternal grandmother; Cancer in her paternal grandmother; Colon cancer in her maternal grandmother; Diabetes in her father; Heart attack in her mother; Heart disease in her father and mother; Hypertension in her father and mother; Lung cancer in her mother; Parkinson's in her brother; Stroke in her father and mother. She reports that she has never smoked. She has never used smokeless tobacco. She reports that she does not currently use alcohol. She reports current drug use. Current medicine and allergy list has been reviewed with the patient. ROS: 12 System Review was performed by the patient in the office setting today, and reviewed with the patient. This ROS will be digitally scanned into the chart following the appointment today. Physical and Neurological Examination: AAOx3, sensory intact, motor 5/5 in bilateral lower extremities, no clonus, positive straight leg raise on the left, gait normal Studies Reviewed I have reviewed the patient's imaging studies to date, in detail with patient in the office. No recent films Medical Decision-Making and Summary: This is a 52-year-old female with low back pain and radiating pain to both of her lower extremities. Unfortunately she does not have any updated imaging and she has failed multiple forms of conservative treatment. Despite this, she still has significant portion of back pain and leg pain. I would therefore like to obtain a lumbar MRI without contrast to assess for any central or foraminal stenosis may be the source of her symptoms. I would also like to obtain lumbar flexion-extension films to assess for any dynamic instability. Patient will follow-up after completion of her test. She was instructed to call with any questions or concerns in the meantime. I have reviewed the clinical findings with the patient in the office today, and the radiographic correlate was demonstrated to the patient in the exam room as well. I discussed the natural history, as well as conservative and surgical treatment options. I utilized spinal models and diagrams to act as visual aids during counseling today. I have answered the patient's questions today, following my consultation. The patient was advised to call with any questions. AUTHENTICATED BY MAC PRESTON ON 08/24/2023 09:22:51[facility] 08-24-2023 History of Present illness Narrative* Mac Preston PA-C - 08/24/2023 9:19 AM EDT Patient Information: Lima Jordan is a 52 y.o. female 1970 HPI Patient is a 52-year-old female presenting for evaluation of low back pain and bilateral lower extremity feet. Patient reports that this began approximately 20 years ago but has been continuously worsening. She does report a history of spina bifida and does report a possible lumbar surgery when shewas a toddler. She does report that her low back pain does radiate to the posterior aspect of both of her lower extremities more severe on the left side. She does report that this radiates to the lateral aspect of her left foot. She does report numbness/tingling in the same distribution particularly on the left side. She does report that her symptoms in her left leg are constant but overall her pain does worsen with standing and walking. She denies any bowel/bladder incontinence or weakness. She has tried physical therapy and multiple rounds of epidural injections without much relief. 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 She has a past surgical history that includes Hysterectomy; Cyst Removal (09/2016); Carpal tunnel release (Right, 11/2011); Cholecystectomy (04/2017); Colonoscopy (2016); Reduction mammaplasty (Bilateral, 02/2020); Tonsillectomy (Bilateral, 11/13/2020); Colonoscopy (N/A, 07/22/2021); Egd (N/A, 07/22/2021); Appendectomy (1994); section, classic (92 and 95); Cysto (04/15/2023); and BladderSuspension Transobturator (N/A, 04/22/2023). Her family history includes Alcohol abuse in her brother and father; Arthritis in her mother; COPD in her paternal grandfather and paternal grandmother; Cancer in her paternal grandmother; Colon cancer in her maternal grandmother; Diabetes in her father; Heart attack in her mother; Heart disease inher father and mother; Hypertension in her father and mother; Lung cancer in her mother; Parkinson's in her brother; Stroke in her father and mother. She reports that she has never smoked. She has never used smokeless tobacco. She reports that she does not currently use alcohol. She reports current drug use. Current medicine and allergy list has been reviewed with the patient. ROS: 12 System Review was performed by the patient in the office setting today, and reviewed with the patient. This ROS will be digitally scanned into the chart following the appointment today. Physical and Neurological Examination: AAOx3, sensory intact, motor 5/5 in bilateral lower extremities, no clonus, positive straight leg raise on the left, gait normal Studies Reviewed I have reviewed the patient's imaging studies to date, in detail with patient in the office. No recent films Medical Decision-Making and Summary: This is a 52-year-old female with low back pain and radiating pain to both of her lower extremities. Unfortunately she does not have any updated imaging and she has failed multiple forms of conservative treatment. Despite this, she still has significant portion of back pain and leg pain. I would therefore like to obtain a lumbar MRI without contrast to assess for any central or foraminal stenosismay be the source of her symptoms. I would also like to obtain lumbar flexion-extension films to assess for any dynamic instability. Patient will follow-up after completion of her test. She was instructed to call with any questions or concerns in the meantime. I have reviewed the clinical findings with the patient in the office today, and the radiographic correlate was demonstrated to the patient in the exam room as well. I discussed the natural history, as well as conservative and surgical treatment options. I utilized spinal models and diagrams to act as visual aids during counseling today. I have answered the patient's questions today, following my consultation. The patient was advised to call with any questions. documented in this [id number] Evaluation + Plan note* Assessment & Plan Note - Aury Mera MD - 05/21/2023 10:47 AM EDT Associated Problem(s): Cognitive change New problem, she is concerned that she may have had another TIA. No neurological deficits on examination. She does have a follow-up in July with her neurologist but would like to get a CT scan sooner.CT scan ordered today. [id number] Miscellaneous Notes* Assessment & Plan Note - Aury Mera MD - 05/21/2023 10:47 AM EDTAssociated Problem(s): Cognitive change New problem, she is concerned that she may have had another TIA. No neurological deficits on examination. She does have a follow-up in July with her neurologist but would like to get a CT scan sooner.CT scan ordered today. * Assessment & Plan Note - Aury Mera MD - 05/21/2023 9:36 AM EDTAssociated Problem(s): Postartificial menopausal syndrome Chronic, stable on estradiol. * Assessment & Plan Note - Aury Mera MD - 05/21/2023 9:36 AM EDTAssociated Problem(s): Insomnia Acute on chronic problem, has tried otc melatonin, magnesium, chamomile. Has also tried Trazodone with no improvement. She is wanting to go back on Ambien which was prescribed by another in the past.We discussed risks and benefits. CSA and UDS completed * Assessment & Plan Note - Aury Mera MD - 05/21/2023 9:28 AM EDTAssociated Problem(s): Encounter for well adult exam with abnormal findings -Counseled on healthy diet. Doing great! -Counseled on importance of exercise - 150mins/ week of moderate activity as tolerated, add stretches for the hip -Tobacco counseling not indicated -Alcohol screening negative -Immunizations reviewed. Will hold off on shingles -Lab screening for hyperlipidemia, A1C for diabetes ordered -Discussed pap recommendations: up to date with drilling foreman -Discussed breast cancer screening: due now -Discussed colon cancer screening: up to date every 5 years, due 2026 -Discussed osteoporosis screening: up to date * Assessment & Plan Note - Aury Mera MD - 05/21/2023 9:19 AM EDTAssociated Problem(s): Hypertension Chronic, controlled. Goal < 140/90. Continue Lisinopril and amlodipine * Assessment & Plan Note - Aury Mera MD - 05/21/2023 9:18 AM EDTAssociated Problem(s): Hypothyroidism Chronic, medication refill due. Labs ordered documented in this [id number] Evaluation + Plan note* Assessment & Plan Note - Aury Mera MD - 05/21/2023 9:36 AM EDTAssociated Problem(s): Postartificial menopausal syndrome Chronic, stable on estradiol. [id number] Evaluation + Plan note* Assessment & Plan Note - Aury Mera MD - 05/21/2023 9:36 AM EDTAssociated Problem(s): Insomnia Acute on chronic problem, has tried otc melatonin, magnesium, chamomile. Has also tried Trazodone with no improvement. She is wanting to go back on Ambien which was prescribed by another in the past.We discussed risks and benefits. CSA and UDS completed [id number] Evaluation + Plan note* Assessment & Plan Note - Aury Mera MD - 05/21/2023 9:28 AM EDTAssociated Problem(s): Encounter for well adult exam with abnormal findings -Counseled on healthy diet. Doing great! -Counseled on importance of exercise - 150mins/ week of moderate activity as tolerated, add stretches for the hip -Tobacco counseling not indicated -Alcohol screening negative -Immunizations reviewed. Will hold off on shingles -Lab screening for hyperlipidemia, A1C for diabetes ordered -Discussed pap recommendations: up to date with drilling foreman -Discussed breast cancer screening: due now -Discussed colon cancer screening: up to date every 5 years, due 2026 -Discussed osteoporosis screening: up to date [id number] Evaluation + Plan note* Assessment & Plan Note - Aury Mera MD - 05/21/2023 9:19 AM EDTAssociated Problem(s): Hypertension Chronic, controlled. Goal < 140/90. Continue Lisinopril and amlodipine [id number] Evaluation + Plan note* Assessment & Plan Note - Aury Mera MD - 05/21/2023 9:18 AM EDTAssociated Problem(s): Hypothyroidism Chronic, medication refill due. Labs ordered [id number] History of Present illness Narrative* Aury Mera MD - 05/21/2023 8:49 AM EDT Images from the original note were not included. Lima Jordan is a 52 y.o. female Assessment/Plan: Problem List Items Addressed This Visit Endocrine Hypothyroidism Chronic, medication refill due. Labs ordered Relevant Medications levothyroxine (SYNTHROID, LEVOTHROID) 88 MCG tablet Cardiovascular and Mediastinum Hypertension Chronic, controlled. Goal < 140/90. 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 Relevant Medications estradioL (ESTRACE) 2 MG tablet Insomnia Acute on chronic problem, has tried otc melatonin, magnesium, chamomile. Has also tried Trazodone with no improvement. She is wanting to go back on Ambien which was prescribed by another in the past.We discussed risks and benefits. CSA and UDS completed Relevant Orders Drugs of Abuse Screen, Urine Encounter for well adult exam with abnormal findings - Primary -Counseled on healthy diet. Doing great! -Counseled on importance of exercise - 150mins/ week of moderate activity as tolerated, add stretches for the hip -Tobacco counseling not indicated -Alcohol screening negative -Immunizations reviewed. Will hold off on shingles -Lab screening for hyperlipidemia, A1C for diabetes ordered -Discussed pap recommendations: up to date with drilling foreman -Discussed breast cancer screening: due now -Discussed colon cancer screening: up to date every 5 years, due 2026 -Discussed osteoporosis screening: up to date Relevant Orders CBC and Differential TSH T4, Free Comprehensive Metabolic Panel Hemoglobin A1c Lipid Panel Rheumatoid factor Drugs of Abuse Screen, Urine Microalbumin/Creatinine Ratio, UR Random Cognitive change New problem, she is concerned that she may have had another TIA. No neurological deficits on examination. She does have a follow-up in July with her neurologist but would like to get a CT scan sooner.CT scan ordered today. Relevant Orders CT Head Or Brain Without Contrast Other Visit Diagnoses Encounter for screening for malignant neoplasm of breast, unspecified screening modality Relevant Orders Mammography Screening Julio Bilateral Return in about 6 months (around 11/21/2023) for HTN/thyroid med efill appt. Limawalter Jordan is a 52 y.o. female who presents for Chief Complaint Patient presents with Annual Exam HPI 52 y.o. female presents for preventative health exam. Any concerns/complaints: She has a history of TIA's that would occur with her Migraines. She hasn't had a migraine but thinks she may have had a TIA. She has been told her word finding has been off and her left eye has been drooping. She has not been sleeping either she got a watch to track it and got 2 hours deep, 2 hoursof light sleep and awake 6 hours. She feels scared to go to sleep. She was on Ambien in the past which helped. Trazodone is no longer helping her. Feels like her body is getting used to it. She was on Clonidine as well but can't recall if that helped. Takes chamomile, ZZzquil, Takes: 10 mg Melatonin, magnesium otc Sleep goal: 6 hour With bladder sling she doesn't wake up at night. Left hip pain- feels like its been pulled. She is a recreational vehicle repairer at [employer] and her motherhad RA. Collagen has helped with her pain that she gets in her knees, ankles and elbows. Nutrition: chicken and tuna,less red meat. Vegetables and fruits daily Water- >120 oz Coffee- 1 cup a day Juice sometimes No alcohol use No tobacco use Exercise: she has been wall pilates Supplement: spoiled child/collagen and biotin Any Family history of breast cancer, uterine cancer or ovarian cancer? Maternal aunt - Any family history of colon cancer? Paternal grandmother, dx at 52 Obstetrics & gynecology History Last menstrual period: 1995 (hx of hysterectomy) Sexually active: yes Any breast concerns? no Last mammogram: 05/19/2022 Last pap smear (HPV): 2020 Last DEXA scan: 2020 Last Colonoscopy: 07/2021 Last Skin cancer screening: none Patient Active Problem List Diagnosis Hypertension Chronic right-sided low back pain without sciatica Postartificial menopausal syndrome Hypothyroidism Vitamin D deficiency Spina bifida occulta Migraine Mixed hyperlipidemia Insomnia Osteopenia Chronic right hip pain Family history of colon cancer S/P bilateral breast reduction Chronic tonsillitis and adenoiditis Chronic diarrhea Encounter for well adult exam with abnormal findings Fibromyalgia Stress incontinence of urine Urge incontinence of urine Overactive bladder Cognitive change Past Surgical History: Procedure Laterality Date APPENDECTOMY 1994 BLADDER SUSPENSION TRANSOBTURATOR N/A 04/22/2023 Procedure: BLADDER SUSPENSION TRANSOBTURATOR; Surgeon: Sophia William MD; Location: [facility]; Service: Urology CARPAL TUNNEL RELEASE Right 11/2011 SECTION, CLASSIC 92 and 95 Two 1991 1994 CHOLECYSTECTOMY 04/2017 COLONOSCOPY 2017 COLONOSCOPY N/A 07/22/2021 Procedure: COLONOSCOPY WITH BIOPSY; Surgeon: Negro Landrum MD; Location: [facility] [place] [facility]; Service: Gastroenterology CYST REMOVAL 09/2016 back CYSTO 04/15/2023 EGD N/A 07/22/2021 Procedure: ESOPHAGOGASTRODUODENOSCOPY WITH BIOPSY; Surgeon: Negro Landrum MD; Location: [facility] [place] [facility]; Service: Gastroenterology HYSTERECTOMY REDUCTION MAMMAPLASTY Bilateral 02/2020 TONSILLECTOMY Bilateral 11/13/2020 Procedure: TONSILLECTOMY; Surgeon: David Hawthorne MD; Location: [facility]; Service: Otolaryngology Family History Problem Relation Age of Onset Heart disease Mother Hypertension Mother Heart attack Mother Stroke Mother Arthritis Mother It crippled her Lung cancer Mother Hypertension Father Heart disease Father Diabetes Father Stroke Father Alcohol abuse Father Parkinson's Brother Alcohol abuse Brother Colon cancer Maternal Grandmother COPD Paternal Grandmother Cancer Paternal Grandmother Colon cancer diagnosed at 52 at 58 COPD Paternal Grandfather Social History Tobacco Use Smoking status: Never Smokeless tobacco: Never Vaping Use Vaping Use: Never used Substance Use Topics Alcohol use: Not Currently Comment: SOCIALLY - once everyy 3 to 4 months Drug use: Yes Comment: Delta 9/ THC gummies - couple times a year Current Outpatient Medications Medication Sig Dispense Refill amitriptyline (ELAVIL) 25 MG tablet Take up to 4 tabs (100mg) nightly for headaches . 120 tablet 11 BIOTIN ORAL Take 5,000 mcg by mouth once daily PM . COLLAGEN MISC 25 mL by Miscellaneous route daily . ferrous sulfate 325 (65 FE) MG tablet Take 1 (one) tablet (325 mg total) by mouth daily with breakfast . (Patient taking differently: Take 1 (one) tablet (325 mg total) by mouth daily with breakfast PM .) 90 tablet 3 fluticasone propionate (FLONASE) 50 mcg/actuation nasal spray 1 (one) spray by Each Nare route 2 (two) times a day as needed . glucosam/chond/hyalu/CF borate (MOVE FREE [facility] ORAL) Take by mouth PM . solifenacin (VESICARE) 10 MG tablet Take 1 (one) tablet (10 mg total) by mouth daily . (Patient taking differently: Take 1 (one) tablet (10 mg total) by mouth daily PM .) 30 tablet 11 amLODIPine (NORVASC) 10 MG tablet Take 1 (one) tablet (10 mg total) by mouth daily . 90 tablet 1 dicyclomine (BENTYL) 10 MG capsule Take 1 cap Twice a day as needed . (Patient not taking: Reportedon 05/21/2023 .) 30 capsule 0 estradioL (ESTRACE) 2 MG tablet Take 1 (one) tablet (2 mg total) by mouth daily PM . 90 tablet 1 levothyroxine (SYNTHROID, LEVOTHROID) 88 MCG tablet Take 1 (one) tablet (88 mcg total) by mouth once daily . 90 tablet 1 lisinopriL (PRINIVIL,ZESTRIL) 40 MG tablet Take 1 (one) tablet (40 mg total) by mouth daily PM . 90tablet 1 No current facility-administered medications for this visit. Review of Systems Constitutional: Negative for appetite change, diaphoresis and fatigue. Eyes: Negative for visual disturbance. Respiratory: Negative for cough and shortness of breath. Cardiovascular: Negative for chest pain and palpitations. Gastrointestinal: Negative for abdominal pain, constipation, diarrhea and nausea. Genitourinary: Negative for dysuria. Musculoskeletal: Positive for arthralgias. Negative for back pain. Skin: Negative for rash and wound. Neurological: Negative for dizziness, numbness and headaches. Psychiatric/Behavioral: Positive for decreased concentration and sleep disturbance. Negative for confusion. The patient is not nervous/anxious. Physical Exam: BP 128/89 (BP Location: Right arm, Patient Position: Sitting, BP Cuff Size: Adult) Pulse 83 Temp 98.4 F (36.9 C) (Temporal) Resp 16 Ht 4' 7 Wt 56.1 kg (123 lb 11.2 oz) SpO2 97% BMI 28.75 kg/m Wt Readings from Last 3 Encounters: 05/21/23 56.1 kg (123 lb 11.2 oz) 04/22/23 54.5 kg (120 lb 2.4 oz) 04/20/23 56.2 kg (124 lb) BP Readings from Last 3 Encounters: 05/21/23 128/89 04/22/23 136/85 04/20/23 (!) 153/91 Physical Exam Vitals reviewed. Constitutional: General: She is not in acute distress. Appearance: She is well-developed. She is not ill-appearing or diaphoretic. HENT: Head: Normocephalic and atraumatic. Right Ear: External ear normal. Left Ear: External ear normal. Nose: Nose normal. Eyes: Conjunctiva/sclera: Conjunctivae normal. Neck: Thyroid: No thyromegaly. Vascular: No carotid bruit. Cardiovascular: Rate and Rhythm: Normal rate and regular rhythm. Pulses: Normal pulses. Heart sounds: Normal heart sounds. No murmur heard. Pulmonary: Effort: Pulmonary effort is normal. No respiratory distress. Breath sounds: Normal breath sounds. Musculoskeletal: Cervical back: Normal range of motion. Left hip: No bony tenderness or crepitus. Decreased range of motion. Normal strength. Right lower leg: No edema. Left lower leg: No edema. Legs: Lymphadenopathy: Cervical: No cervical adenopathy. Skin: Capillary Refill: Capillary refill takes less than 2 seconds. Findings: No rash. Neurological: Mental Status: She is alert and oriented to person, place, and time. Motor: No weakness. Gait: Gait normal. Psychiatric: Mood and Affect: Mood normal. Behavior: Behavior normal. Thought Content: Thought content normal. OARRS/NARxCHECK Report Received and Assessed: 05/21/2023 Date controlled substance agreement signed: 05/21/2023 Date of last drug screen: 05/21/2023 Functional Assessment: No data found Health Maintenance Due Topic Date Due Lipid Panel 07/09/2022 Zoster Vaccines (1 of 2) Never done Mammogram 05/23/2023 Goals Blood Pressure < 140/90 High blood pressure makes your heart work too hard. It can cause heart attack, stroke and kidney disease. Blood pressure goal is 140/90 or less. You will complete 150 minutes of formal exercise per week. You will maintain a BMI of 18.5-24.9 TOTAL CHOLESTEROL < 199 Total cholesterol goal is less than 199 Triglyceride goal is less than 150 HDL or good cholesterol is above 45 LDL goal is less than 100 Please note: Portions of this chart may have been created with [employer] voice recognition software. Occasional wrong-word or sound-like substitutions may have occurred due to inherent limitations of the voice recognition software. Please read the chart carefully and recognize, using context, where the substitutions have occurred. For any new medications prescribed today, patient was educated about indications for the medication, how to take the medication and potential side effects of the medications. Electronically signed by: Aury Mera M.D. 06/18/2018 9:00 AM 09/26/2019 8:00 AM 05/15/2022 7:00 AM 05/21/2023 8:00 AM Depression Screening Little interest or pleasure in doing things 0 0 0 0 Feeling down, depressed, or hopeless 0 0 0 0 PHQ-2 Total Score 0 0 0 0 Trouble falling or staying asleep, or sleeping too much 3 0 1 Feeling tired or having little energy 3 0 1 Poor appetite or overeating 0 0 0 Feeling bad about yourself - or that you are a failure or have let yourself or your family down 0 00 Trouble concentrating on things, such as reading the newspaper or watching television 0 0 1 Moving or speaking so slowly that other people could have noticed. Or the opposite - being so fidgety or restless that you have been moving around a lot more than usual 3 0 0 Thoughts that you would be better off , or of hurting yourself in some way 0 0 0 PHQ-9 Total Score 9 0 3 If you checked off any problems, how difficult have these problems made it for you to do your work,take care of things at home, or get along with other people? Very difficult Not difficult at all documented in this [id number] History of Present illness Narrative* Marta Nina, SENIOR COMPUTER SPECIALIST - 04/20/2023 8:10 AM EST Pre-Operative H&P Assessment and Plan Stress incontinence of urine Surgery Information ID Date/Time Status Primary Surgeon All Procedures Location [id number] 04/22/2023 1404 Scheduled Stewart, Sophia Watts MD BLADDER SUSPENSION TRANSOBTURATOR [facility] Hypothyroidism May take levothyroxine morning of surgery with sip of water. Hypertension BP Readings from Last 3 Encounters: 04/20/23 (!) 153/91 04/15/23 (!) 166/103 01/13/23 116/78 Blood pressure, although elevated is with in acceptable limits for surgery. Take amlodipine morningof surgery. Preop examination Patient is medically acceptable for planned surgery. She has a Revised Cardiac Risk Index of 1, based on history of TIA. She describes a greater than 4 mets of functional capacity without symptoms ofshortness of breath or chest pain. Based on 2014 ACC/AHA guidelines no further testing is indicated. Preoperative sleep apnea risk assessment score is 1/3, indicating mild risk factors. Apfel score is 3, suggesting moderate risk factors. The patient has undergone multiple surgeries in the past, patient reports all of which were uneventful from a cardiac and anesthesia standpoint. Chief Complaint Patient presents with Pre-operative Medical Risk Stratification History of Present Illness Lima Jordan is a 52 y.o. female who presents for preoperative medical risk stratificationconsult. She is scheduled for BLADDER SUSPENSION TRANSOBTURATOR with Dr. William 04/22/23. Chronic conditions include anemia, GERD, hypertension, hypothyroid, TIA (1999). The patient has undergone multiple surgeries in the past, patient reports all of which were uneventful from a cardiac and anesthesiastandpoint. Please see below regarding status of active medical conditions and assessment and plan regarding details of preoperative medical risk stratification. 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 Osteoporosis 2000 Osteoporosis Peptic ulceration Spina bifida occulta 06/26/2011 Stroke ([facility]) 1999 TIA (transient ischemic attack) Vitamin D deficiency 12/21/2013 Past Medical History Pertinent Negatives: Diagnosis Date Noted Alcoholism ([facility]) 10/14/2021 Anxiety 11/13/2022 Arrhythmia 11/13/2022 Asthma 11/13/2022 Cancer ([facility]) 10/14/2021 Chronic kidney disease 10/14/2021 Clotting disorder ([facility]) 10/14/2021 COPD (chronic obstructive pulmonary disease) ([facility]) 11/13/2022 Coronary artery disease 11/13/2022 Deep vein thrombosis ([facility]) 10/14/2021 Depression 11/13/2022 Diabetes ([facility]) 10/14/2021 Diabetes mellitus ([facility]) 11/13/2022 Glaucoma 11/13/2022 Heart disease 10/14/2021 Heart murmur 11/13/2022 History of transfusion 10/14/2021 HIV disease ([facility]) 10/14/2021 Infectious viral hepatitis 11/13/2022 Injury of back 11/13/2022 Liver disease 10/14/2021 Lung disorder 10/14/2021 Myocardial infarction ([facility]) 11/13/2022 Psychiatric disorder 10/14/2021 Pulmonary embolism ([facility]) 10/14/2021 Seizures ([facility]) 10/14/2021 Sickle cell anemia ([facility]) 11/13/2022 Sleep apnea, obstructive 11/08/2020 Substance abuse ([facility]) 11/13/2022 Tuberculosis 10/14/2021 Past Surgical History: Procedure Laterality Date APPENDECTOMY 1994 CARPAL TUNNEL RELEASE Right 11/2011 SECTION, CLASSIC 92 and 95 Two 1992 1994 CHOLECYSTECTOMY 04/2017 COLONOSCOPY 2017 COLONOSCOPY N/A 07/22/2021 Procedure: COLONOSCOPY WITH BIOPSY; Surgeon: Negro Landrum MD; Location: [facility] [place] OR; Service: Gastroenterology CYST REMOVAL 09/2016 back CYSTO 04/15/2023 EGD N/A 07/22/2021 Procedure: ESOPHAGOGASTRODUODENOSCOPY WITH BIOPSY; Surgeon: Negro Landrum MD; Location: [facility] [place] OR; Service: Gastroenterology HYSTERECTOMY REDUCTION MAMMAPLASTY Bilateral 02/2020 TONSILLECTOMY Bilateral 11/13/2020 Procedure: TONSILLECTOMY; Surgeon: David Hawthorne MD; Location: Main OR; Service: Otolaryngology Social History Tobacco Use Smoking status: Never Smokeless tobacco: Never Substance Use Topics Alcohol use: Not Currently Comment: SOCIALLY - once everyy 3 to 4 months Family History Problem Relation Age of Onset Heart disease Mother Hypertension Mother Heart attack Mother Stroke Mother Arthritis Mother It crippled her Lung cancer Mother Hypertension Father Heart disease Father Diabetes Father Stroke Father Alcohol abuse Father Parkinson's Brother Alcohol abuse Brother Colon cancer Maternal Grandmother COPD Paternal Grandmother Cancer Paternal Grandmother Colon cancer diagnosed at 52 at 58 COPD Paternal Grandfather Prior to Admission medications taking for visit date 04/20/23 Medication Sig Taking? Discontinued? amitriptyline (ELAVIL) 25 MG tablet Take up to 4 tabs (100mg) nightly for headaches . Yes amLODIPine (NORVASC) 10 MG tablet Take 1 (one) tablet (10 mg total) by mouth daily . Patient taking differently: Take 1 (one) tablet (10 mg total) by mouth daily PM . Yes BIOTIN ORAL Take 5,000 mcg by mouth once daily PM . Yes dicyclomine (BENTYL) 10 MG capsule Take 1 cap Twice a day as needed . Yes estradioL (ESTRACE) 2 MG tablet Take 1 (one) tablet (2 mg total) by mouth daily . Patient taking differently: Take 1 (one) tablet (2 mg total) by mouth daily PM . Yes ferrous sulfate 325 (65 FE) MG tablet Take 1 (one) tablet (325 mg total) by mouth daily with breakfast . Patient taking differently: Take 1 (one) tablet (325 mg total) by mouth daily with breakfast PM . Yes fluticasone propionate (FLONASE) 50 mcg/actuation nasal spray 1 (one) spray by Each Nare route 2 (two) times a day as needed . Yes glucosam/chond/hyalu/CF borate (MOVE FREE [facility] ORAL) Take by mouth PM . Yes levothyroxine (SYNTHROID, LEVOTHROID) 88 MCG tablet Take 1 (one) tablet (88 mcg total) by mouth once daily . Patient taking differently: Take 1 (one) tablet (88 mcg total) by mouth once daily PM . Yes lisinopriL (PRINIVIL,ZESTRIL) 40 MG tablet Take 1 (one) tablet (40 mg total) by mouth daily . Patient taking differently: Take 1 (one) tablet (40 mg total) by mouth daily PM . Yes solifenacin (VESICARE) 10 MG tablet Take 1 (one) tablet (10 mg total) by mouth daily . Patient taking differently: Take 1 (one) tablet (10 mg total) by mouth daily PM . Yes Allergies Allergen Reactions Bee Venom Protein (Honey Bee) Hives Asa [Aspirin] GI Intolerance Caffeine Other (See Comments) anxiety Ct: Iodinated Contrast- Oral And Iv Dye Hives Morphine Hives Oxycodone-Acetaminophen Stated I can't function Penicillins Hives Red Dye Sulfamethoxazole GI Intolerance GI problems Bactrim Trimethoprim GI Intolerance GI problems Bactrim Venlafaxine Other (See Comments) Severe agitation and mood changes Review of Systems Constitution: (negative) HENT: abnormal dentition (partial upper) Eyes: (negative) Respiratory: (negative) Cardiovascular: no chest pain, no leg swelling, no palpitations - Exercise capacity: Greater than 4 METS Gastrointestinal: (negative) Genitourinary: - incontinence Musculoskeletal: (negative) Skin: (negative) Neurological: (negative) Hematological: (negative) Physical Exam BP (!) 153/91 Pulse 67 Ht 4' 7 Wt 56.2 kg (124 lb) SpO2 96% BMI 28.82 kg/m Constitutional: She is oriented to person, place, and time. She appears well developed and well-nourished. Skin: Skin is warm and dry. Eyes: Conjunctivae are normal. HENT: Head: Normocephalic and atraumatic. Right Ear: External ear normal. Left Ear: External ear normal. Nose: Nose normal. Mouth/Throat: Oropharynx is clear and moist. Neck: Normal range of motion. Neck supple. Cardiovascular: Normal rate, regular rhythm, normal heart sounds and intact distal pulses. Pulmonary/Chest: Effort normal and breath sounds normal. Abdominal: Soft. Bowel sounds are normal. Musculoskeletal: Normal range of motion. Neurological: She is alert and oriented to person, place, and time. She has normal strength. Psychiatric: She has a normal mood and affect. Her behavior is normal. Cognition and memory are normal. Data Preprocedure Sleep Apnea Assessment - No Risk (0/3) Sleep Apnea in the patient's Active Problem List or Medical History: no 1. History of apparent airway obstruction during sleep: (1 point for this category) Do you snore frequently, or snore loud enough to be heard through a closed door?: no Do you awaken from sleep with a choking sensation or have periods during sleep when someone has observed you pausing between breaths?: no 2. Somnolence of the patient: (1 point for this category) Do you find yourself frequently sleepy despite adequate hours of sleep the night before?: no Do you fall asleep easily while: watching TV, reading, riding in or driving a car?: no 3. Predisposing physician characteristics: (1 point for this category, 2 points if the BMI ? 40) BMI (Calculated): 28.8 Neck Circumference (inches): 12 inches Recent Results (from the past 1825 days) XR CERVICAL SPINE COMPLETE 4-5 VIEWS (STANDARD) 12/12/2022 (Final) Status: Normal Narrative EXAMINATION: XR CERVICAL SPINE COMPLETE 4-5 VIEWS (STANDARD) 12/12/2022 8:39 am HISTORY: ORDERING SYSTEM PROVIDED HISTORY: Cervical spondylosis without myelopathy, TECHNOLOGIST PROVIDED HISTORY: Illness/Other Reason for exam: Chronic neck pain . Cervical spondylosis nki. Cancer History: Surgery, RadiationHistory: Encounter Type: Initial Additional signs and symptoms: ORDERING SYSTEM PROVIDED DIAGNOSIS CODES: M47.812 Cervical spondylosis without myelopathy M54.2 Neck pain COMPARISON: None FINDINGS: The prevertebral soft tissues are unremarkable. The odontoid is intact. There is no evidence of an acute fracture or subluxation. There is straightening of the normal cervical lordosis. The neural foramina are patent. Impression No evidence of an acute osseous abnormality. Workstation ID: [id number] documented in this [id number] Evaluation + Plan note* Assessment & Plan Note - Marta Nina CNP - 04/20/2023 8:09 AM EST Associated Problem(s): Preop examination Patient is medically acceptable for planned surgery. She has a Revised Cardiac Risk Index of 1, based on history of TIA. She describes a greater than 4 mets of functional capacity without symptoms ofshortness of breath or chest pain. Based on 2014 ACC/AHA guidelines no further testing is indicated. Preoperative sleep apnea risk assessment score is 1/3, indicating mild risk factors. Apfel score is 3, suggesting moderate risk factors. The patient has undergone multiple surgeries in the past, patient reports all of which were uneventful from a cardiac and anesthesia standpoint. [id number] Miscellaneous Notes* Assessment & Plan Note - Marta Nina CNP - 04/20/2023 8:09 AM ESTAssociated Problem(s): Preop examination Patient is medically acceptable for planned surgery. She has a Revised Cardiac Risk Index of 1, based on history of TIA. She describes a greater than 4 mets of functional capacity without symptoms ofshortness of breath or chest pain. Based on 2014 ACC/AHA guidelines no further testing is indicated. Preoperative sleep apnea risk assessment score is 1/3, indicating mild risk factors. Apfel score is 3, suggesting moderate risk factors. The patient has undergone multiple surgeries in the past, patient reports all of which were uneventful from a cardiac and anesthesia standpoint. * Assessment & Plan Note - Marta Nina CNP - 04/20/2023 8:07 AM EST Associated Problem(s): Hypertension BP Readings from Last 3 Encounters: 04/20/23 (!) 153/91 04/15/23 (!) 166/103 01/13/23 116/78 Blood pressure, although elevated is with in acceptable limits for surgery. Take amlodipine morningof surgery. * Assessment & Plan Note - Marta Nina CNP - 04/20/2023 8:05 AM EST Associated Problem(s): Hypothyroidism May take levothyroxine morning of surgery with sip of water. * Assessment & Plan Note - Marta Nina CNP - 04/20/2023 8:02 AM EST Associated Problem(s): Stress incontinence of urine Surgery Information ID Date/Time Status Primary Surgeon All Procedures Location [id number] 04/22/2023 1404 Scheduled Sophia William MD BLADDER SUSPENSION TRANSOBTURATOR [facility] OR documented in this [id number] Evaluation + Plan note* Assessment & Plan Note - Marta Nina CNP - 04/20/2023 8:07 AM EST Associated Problem(s): Hypertension BP Readings from Last 3 Encounters: 04/20/23 (!) 153/91 04/15/23 (!) 166/103 01/13/23 116/78 Blood pressure, although elevated is with in acceptable limits for surgery. Take amlodipine morningof surgery. [id number] Evaluation + Plan note* Assessment & Plan Note - Marta Nina CNP - 04/20/2023 8:05 AM ESTAssociated Problem(s): Hypothyroidism May take levothyroxine morning of surgery with sip of water. [id number] Evaluation + Plan note* Assessment & Plan Note - Marta Nina CNP - 04/20/2023 8:02 AM ESTAssociated Problem(s): Stress incontinence of urine Surgery Information ID Date/Time Status Primary Surgeon All Procedures Location [id number] 04/22/2023 1404 Scheduled Sophia William MD BLADDER SUSPENSION TRANSOBTURATOR [facility] [id number] Instructions* Patient Instructions* Marta Nina CNP - 04/20/2023 7:49 AM EST Preoperative Medication Instructions In preparation for surgery please continue all of your current medications with the following changes: Active Home Medications Medication Sig Take Last Dose On Take Morning of Surgery Comment(s) amitriptyline (ELAVIL) 25 MG tablet Take up to 4 tabs (100mg) nightly for headaches . amLODIPine (NORVASC) 10 MG tablet Take 1 (one) tablet (10 mg total) by mouth daily . (Patient taking differently: Take 1 (one) tablet (10 mg total) by mouth daily PM .) Take morning of surgery with sip of water BIOTIN ORAL Take 5,000 mcg by mouth once daily PM . dicyclomine (BENTYL) 10 MG capsule Take 1 cap Twice a day as needed . estradioL (ESTRACE) 2 MG tablet Take 1 (one) tablet (2 mg total) by mouth daily . (Patient taking differently: Take 1 (one) tablet (2 mg total) by mouth daily PM .) ferrous sulfate 325 (65 FE) MG tablet Take 1 (one) tablet (325 mg total) by mouth daily with breakfast . (Patient taking differently: Take 1 (one) tablet (325 mg total) by mouth daily with breakfast PM .) fluticasone propionate (FLONASE) 50 mcg/actuation nasal spray 1 (one) spray by Each Nare route 2 (two) times a day as needed . glucosam/chond/hyalu/CF borate (MOVE FREE [facility] ORAL) Take by mouth PM . levothyroxine (SYNTHROID, LEVOTHROID) 88 MCG tablet Take 1 (one) tablet (88 mcg total) by mouth once daily . (Patient taking differently: Take 1 (one) tablet (88 mcg total) by mouth once daily PM .) Take morning of surgery with sip of water lisinopriL (PRINIVIL,ZESTRIL) 40 MG tablet Take 1 (one) tablet (40 mg total) by mouth daily . (Patient taking differently: Take 1 (one) tablet (40 mg total) by mouth daily PM .) solifenacin (VESICARE) 10 MG tablet Take 1 (one) tablet (10 mg total) by mouth daily . (Patient taking differently: Take 1 (one) tablet (10 mg total) by mouth daily PM .) STOP ( medications that contain aspirin, such as Анна Seward, Pepto-Bismol, Anacin), antiinflammatory medications such as Advil, Motrin, Ibuprofen, Naproxen, Aleve, Анна Seward, Pepto-Bismol, Anacin, Diclofenac, Voltaren, Daypro, Etodolac, Ketoprofen, Piroxicam, Relafen, Nabumetone, etc. Also disc ontinue Vitamin C, Vitamin E, Amelia-3 Fatty Acid, Fish Oil or Lovaza, and all herbal medications ASDIRECTED BY SURGEON. Tylenol (acetaminophen) is acceptable(unless you have an allergy to this medication ), but be careful to follow the label directions and do not use with other pain medications. On the morning of surgery, with as little water as possible, ONLY take the medications listed abovein the column Take the morning of surgery. If you are using Eye Drops or Inhalers, please bring them to the hospital. Patient Instructions for [facility]: Prior to surgery: Surgeon's office will contact you with the scheduled time of your surgery. You may use the [employer] parking available at the Main Entrance One family member may accompany you back into the Pre-Op Area. Do not eat or drink anything after midnight or as directed, including gum, mints, and cough drops. No smoking after midnight. No chewing tobacco after midnight. No alcohol 24 hours prior to your surgery. Please take any medications you have been instructed to take the morning of your surgery with smallsips of water. Please be sure to wear comfortable, appropriate clothing. Please remove all jewelry and piercing's, including wedding rings. Leave all valuable items at home. Shower using anti-bacterial soap or as advised by your Surgeon's office Do not apply any makeup or lotions. Remove all nail paraguayan for surgeries involving extremities. Please remember to bring both your insurance card and a photo ID with you on the day of surgery. After your surgery: If you are having outpatient surgery - you must have a licensed log truck driver to take you home. The expectation is that this log truck driver will remain at the hospital for the duration of your procedure. You are advised to have a family member with you for at least 24 hours after being under Anesthesia. If you have sleep apnea and have a CPAP/BIPAP mask, please bring it with you the day of surgery. documented in this [id number] History of Present illness Narrative* Misty Wang RN - 04/15/2023 9:21 AM EST Spoke with patient and discussed surgery date/time with Dr. William. Scheduled for 04/22 . Presurgy testing scheduled for 04/20 @ 0730. Presurgery instructions discussed in office with patient. Surgery sharon performed at [facility]. Currently not taking any anticoagulation. As follows are the pre-surgery instructions: -Nothing to eat or drink after midnight: including water, gum, candy, coffee, and mints. -You can brush your teeth, just be careful not to swallow any water. -Shower or bath the night before or morning of. -Do not drink alcohol the day prior to surgery. -Recommended no smoking after midnight. -Bring an updated list of medications. -Hold blood thinners -Wear casual, loose fitting, comfortable clothing. Do not wear any jewelry, make-up, nail paraguayan, or hair pins the day of surgery. All body piercings MUST be removed prior to surgery. -Please leave valuables at home. -Make sure you have a log truck driver. You will not be able to drive yourself home. -If you develop any illness, such as a cold, sore throat, fever, or cough please update the office. -Failure to comply with these instructions could lead to the cancellation of your surgery d/t high probability of serious harm to you. Instructed to please call the office with any questions or concerns. * Sophia William MD - 04/15/2023 9:04 AM ESTAssociated Order(s): Cystoscopy Post-Procedure Diagnose(s): Urge incontinence of urine; Stress incontinence of urine Cystoscopy Date/Time: 04/15/2023 9:04 AM Performed by: Sophia William MD Authorized by: Sophia William MD Written consent: obtained Consent given by: patient Relevant documents: Relevent documents present and verified. Medical history, medications, allergies and physical assessment reviewed/completed Test results: test results available and properly labeled Site: site marked by physician or proceduralist who is privileged and credentialed to perform procedure Relevant imaging studies available and labeled: Yes Patient identity confirmed: verified patient name and Time out: Immediately prior to procedure a time out was called to verify the correct patient, procedure, equipment, technical support associate and site/side marked as required. Physician or proceduralist has discussed critical or nonroutine steps, procedure duration and anticipated blood loss: Yes All team members agree to proceed: Yes Preparation: Patient was prepped and draped in usual sterile fashion Local anesthesia used?: Yes Anesthesia: Local infiltration Local anesthetic: Lidocaine/prilocaine emulsionPatient sedated: no Patient tolerance: Patient tolerated the procedure well with no immediate complications Procedure details: The patient was placed on the table in the frog-leg position. She was prepped inthe usual sterile fashion and lidocaine jelly was administered per urethra. Flexible scope was inserted into the urethra. There was some mild narrowness of the meatus but the scope was able to pass through. There was also only moderate coaptation of the urethra. The scope then entered the bladder. The bladder was smooth and free of any tumors, stones, or lesions. The ureteral orifices appeared unremarkable. Bladder neck was unremarkable. The scope was then removed and this concluded the procedure. 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 She also does have some overactive bladder with urgency and occasional urge incontinence therefore we will give her a trial of Vesicare for this. I discussed this in detail with her. documented in this [id number] Evaluation + Plan note* Assessment & Plan Note - Albina Correa, SENIOR COMPUTER SPECIALIST - 01/21/2023 3:24 PM EST Associated Problem(s): Chronic right hip pain 1. Continue follow-up with Dr. Balderas. 2. She mentions PM discussed MRI back. Will leave this for PM to decide since they are managing chronic pain. [id number] Miscellaneous Notes* Assessment & Plan Note - Albina Correa CNP - 01/21/2023 3:24 PM ESTAssociated Problem(s): Chronic right hip pain 1. Continue follow-up with Dr. Balderas. 2. She mentions PM discussed MRI back. Will leave this for PM to decide since they are managing chronic pain. * Assessment & Plan Note - Albina Correa CNP - 01/21/2023 3:23 PM EST Associated Problem(s): Fibromyalgia 1. Continue amitriptyline. Beneficial for migraines. 2. Did not tolerate venlafaxine. * Assessment & Plan Note - Albina Correa CNP - 01/21/2023 3:22 PM EST Associated Problem(s): Migraine 1. Currently on amitriptyline. Reports she is consistently taking 2-3 tablets (50 to 75 mg) at bedtime depending on how stressful her day was. Will change dose to 100 mg at bedtime. She will report back with any changes or concerns with new dose. 2. Reports migraines are better controlled. Unable to recall when last migraine was. 3. Encouraged to monitor migraines for any changes or worsening. documented in this [id number] Evaluation + Plan note* Assessment & Plan Note - Albina Correa CNP - 01/21/2023 3:23 PM EST Associated Problem(s): Fibromyalgia 1. Continue amitriptyline. Beneficial for migraines. 2. Did not tolerate venlafaxine. [id number] Evaluation + Plan note* Assessment & Plan Note - Albina Correa CNP - 01/21/2023 3:22 PM ESTAssociated Problem(s): Migraine 1. Currently on amitriptyline. Reports she is consistently taking 2-3 tablets (50 to 75 mg) at bedtime depending on how stressful her day was. Will change dose to 100 mg at bedtime. She will report back with any changes or concerns with new dose. 2. Reports migraines are better controlled. Unable to recall when last migraine was. 3. Encouraged to monitor migraines for any changes or worsening. [id number] History of Present illness Narrative* Christina Cooper CNP - 01/13/2023 1:09 PM EST DATE: 01/13/2023 CHIEF COMPLAINT: Chief Complaint Patient presents with incontinence HISTORY OF PRESENT ILLNESS: Lima Jordan is a 52 y.o. female she is not having any burningwith urination but she is having urgency. She is also having incontinence. She does not have stressincontinence at baseline but this type is never happened to her before. She stated that she is losing urine with an urgent need to go to the bathroom, sometimes she doesn't even have the urge but will lose urine Initially seen by and referred by Aury Mera MD . Duration: chronic Aggravating Factors: hysterectomy, history of kidney stones Alleviating Factors: none Associated Symptoms: as above Systemic:The patient denies any weight loss, malaise, fatigue, pain, or night sweats. Urinary: The patient reports normal urinary function. Patient denies urinary dysuria, frequency, nocturia, hematuria. Bowel: No constipation, diarrhea, or fecal incontinence HISTORY: [facility] Past Medical History: Diagnosis Date Anemia Arthritis hips Back pain Endometriosis 1996 Family history of colon cancer GERD (gastroesophageal reflux disease) Hypertension Hypothyroid Low back pain 06/26/2011 Migraine 06/26/2011 Migraines Mixed hyperlipidemia 06/26/2011 Neuromuscular disorder ([facility]) 2015 Sciatica 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 Osteoporosis 2000 Osteoporosis Peptic ulceration Spina bifida occulta 06/26/2011 Stroke ([facility]) 1999 TIA (transient ischemic attack) Vitamin D deficiency 12/21/2013 [facility] Past Surgical History: Procedure Laterality Date APPENDECTOMY 1994 CARPAL TUNNEL RELEASE Right 11/2011 SECTION x 2 - 1991 - 1994 SECTION, CLASSIC 92 and 95 Two 1992 1994 SECTION, LOW TRANSVERSE 1994 CHOLECYSTECTOMY 04/2017 COLONOSCOPY 2016 COLONOSCOPY N/A 07/22/2021 Procedure: COLONOSCOPY WITH BIOPSY; Surgeon: Negro Landrum MD; Location: [facility] [place] OR; Service: Gastroenterology CYST REMOVAL 09/2016 back EGD N/A 07/22/2021 Procedure: ESOPHAGOGASTRODUODENOSCOPY WITH BIOPSY; Surgeon: Negro Landrum MD; Location: [facility] [place] OR; Service: Gastroenterology HYSTERECTOMY REDUCTION MAMMAPLASTY Bilateral 02/2020 TONSILLECTOMY Bilateral 11/13/2020 Procedure: TONSILLECTOMY; Surgeon: David Hawthorne MD; Location: [facility] OR; Service: Otolaryngology TONSILLECTOMY SH Social History Socioeconomic History Marital status: Tobacco Use Smoking status: Never Smokeless tobacco: Never Vaping Use Vaping Use: Some days Substance and Sexual Activity Alcohol use: Not Currently Comment: SOCIALLY - once everyy 3 to 4 months Drug use: Yes Comment: Delta 9/ THC gummies Sexual activity: Yes Partners: Male Comment: I'm to.same man 9 years Social Determinants of Health Financial Resource Strain: Low Risk (11/13/2022) Overall Financial Resource Strain (CARDIA) Difficulty of Paying Living Expenses: Not very hard Food Insecurity: No Food Insecurity (11/13/2022) Hunger Vital Sign Worried About Running Out of Food in the Last Year: Never true Ran Out of Food in the Last Year: Never true Transportation Needs: No Transportation Needs (11/13/2022) PRAPARE - Transportation Lack of Transportation (Medical): No Lack of Transportation (Non-Medical): No Social Connections: Unknown (07/09/2021) Social Connection and Isolation Panel [NHANES] Frequency of Social Gatherings with Friends and Family: Three times a week FH Family History Problem Relation Age of Onset Heart disease Mother Hypertension Mother Heart attack Mother Stroke Mother Arthritis Mother It crippled her Hypertension Father Heart disease Father Diabetes Father Stroke Father Alcohol abuse Father Parkinson's Brother Alcohol abuse Brother Colon cancer Maternal Grandmother COPD Paternal Grandmother Cancer Paternal Grandmother Colon cancer diagnosed at 52 at 58 COPD Paternal Grandfather ALLERGIES AND MEDICATIONS Allergies: Bee venom protein (honey bee), Asa [aspirin], Caffeine, Ct: iodinated contrast- oral and iv dye, Morphine, Oxycodone-acetaminophen, Penicillins, Red dye, Sulfamethoxazole, Trimethoprim, and Venlafaxine Current Outpatient Medications: amitriptyline (ELAVIL) 25 MG tablet, Take up to 4 tabs (100mg) nightly for headaches ., Disp: 120 tablet, Rfl: 11 amLODIPine (NORVASC) 10 MG tablet, Take 1 (one) tablet (10 mg total) by mouth daily ., Disp: 90 tablet, Rfl: 3 BIOTIN ORAL, Take 5,000 mcg by mouth once daily ., Disp: , Rfl: dicyclomine (BENTYL) 10 MG capsule, Take 1 cap Twice a day as needed ., Disp: 30 capsule, Rfl: 0 estradioL (ESTRACE) 2 MG tablet, Take 1 (one) tablet (2 mg total) by mouth daily ., Disp: 90 tablet, Rfl: 1 ferrous sulfate 325 (65 FE) MG tablet, Take 1 (one) tablet (325 mg total) by mouth daily with breakfast ., Disp: 90 tablet, Rfl: 3 fluticasone propionate (FLONASE) 50 mcg/actuation nasal spray, 1 (one) spray by Each Nare route 2 (two) times a day as needed ., Disp: , Rfl: glucosam/chond/hyalu/CF borate (MOVE FREE JOINT HEALTH ORAL), Take by mouth ., Disp: , Rfl: levothyroxine (SYNTHROID, LEVOTHROID) 88 MCG tablet, Take 1 (one) tablet (88 mcg total) by mouth once daily ., Disp: 90 tablet, Rfl: 3 lisinopriL (PRINIVIL,ZESTRIL) 40 MG tablet, Take 1 (one) tablet (40 mg total) by mouth daily ., Disp: 90 tablet, Rfl: 3 ubrogepant (UBRELVY) 100 mg Tab, Take 1 (one) tablet (100 mg total) by mouth daily as needed (at migraine onset) Can take 2nd dose after 2 hours if migraine persists. Max dose 200mg per 24 hours. . (Patient not taking: Reported on 01/13/2023 .), Disp: 16 tablet, Rfl: 11 REVIEW OF SYSTEMS: CONSTITUTIONAL: No weight loss, malaise, or fatigue EYES: No changes in vision, no blurry vision EARS, NOSE, MOUTH, THROAT: No change in hearing, No difficulty swallowing. CARDIOVASCULAR: No chest pain or heart palpitations. RESPIRATORY: No difficulty breathing or wheezing. GI: No changes in bowel habit. No blood in his stool. : No dysuria, hematuria, or urinary tract infections. The rest as above in the HPI. MUSCULOSKELETAL: No joint pain or swelling. VASCULAR: No peripheral edema. No calf pain with exertion. NEURO: No changes in gait or sensation. SKIN: No rashes or lesions. PSYCHIATRIC: No depressive or suicidal thoughts PHYSICAL EXAM: CONSTITUTIONAL: VITAL SIGNS: Vitals: 01/13/23 1304 BP: 116/78 BP Location: Right arm Patient Position: Sitting Pulse: 73 SpO2: 97% GENERAL: Well appearing. No acute distress. EYES: PERRLA, EOMI EARS, NOSE, MOUTH, THROAT: mucous memebranes moist, trachea midline CARDIOVASCULAR: no peripheral edema. ABDOMEN: Soft, nondistended, nontender. BACK: No CVA tenderness. : Deferred per patient MUSCULOSKELETAL: normal extremity ROM with no edema NEURO: Normal gait, CN II-XII grossly intact PSYCHATRIC: A & O x3, mood and affect appropriate SKIN: No rashes, ulcers, or lesions visible DATA: IMAGING: LAB: POC: Urine dipstick shows negative for all components. ASSESSMENT / PLAN: Problem List Items Addressed This Visit None Visit Diagnoses Urinary incontinence, unspecified type Relevant Orders POC Urinalysis Dipstick, Auto (Completed) Measure post void residual (Completed) Severe incontinence been going on for a couple of years but description it appears to be stress andurge. She sometimes loses urine without awareness of the need to urinate. Has been wearing pads andchanges them multiple times per day for the urine leakage. Discussed stress vs urge incontinence explained that urge is helped with medication sometimes Botox and stress incontinence is improved withsurgery, like Sling procedure or Bulkamid however, further examination will determine which is necessary. Sample of Myrbetriq 50 mg sample was given pending cystoscopy with Dr Stewart Cooper [facility] documented in this [id number] Instructions* Patient Instructions* Albina Correa CNP - 01/13/2023 8:11 AM EST Continue amitriptyline at bedtime. Take 100 mg dose. Ubrelvy as needed for when you get a migraine. Your can continue on your over the counter supplement. Follow-up in 1 year, or sooner as need. documented in this [id number] History of Present illness Narrative* Albina Correa CNP - 01/13/2023 8:06 AM EST Patient ID: Lima Jordan is a 52 y.o. female. Assessment/Plan: Problem List Migraine - Primary Currently on amitriptyline. Reports she is consistently taking 2-3 tablets (50 to 75 mg) at bedtimedepending on how stressful her day was. Will change dose to 100 mg at bedtime. She will report back with any changes or concerns with new dose. Reports migraines are better controlled. Unable to recall when last migraine was. Encouraged to monitor migraines for any changes or worsening. Relevant Medications amitriptyline (ELAVIL) 25 MG tablet Chronic right hip pain Continue follow-up with Dr. Balderas. She mentions PM discussed MRI back. Will leave this for PM to decide since they are managing chronic pain. Fibromyalgia Continue amitriptyline. Beneficial for migraines. Did not tolerate venlafaxine. Follow-up in 1 year Time statement: A total of 40 minutes were spent on this encounter, which includes the time reviewing the patient's diagnostic tests, seeing the patient, speaking with nursing staff, and documenting in the record. Albina Correa, MSN, SENIOR COMPUTER SPECIALIST [facility] Subjective HPI Update 01/13/2023: Reports she was unable to take the last medication given to her Cyheatheralta. Cymbalta was not prescribed at previous visit, however venlafaxine was. She states the medication made her increasingly agitated and that she could not tolerate taking it due to this so she discontinued the medication on her own. She has been taking a newer supplement, which she feels has been helpful, called Nervive for nerve relief. She also reports her migraines have been controlled on the amitriptyline. She states she takes 2-3 tablets at night depending on how stressful her day was. She statesshe consistently takes 2 tablets (50 mg). She has issues with chronic left hip pain, which has worsened over the years. She sees pain management, Dr. Balderas. She also gets pain and burning that goes down her left leg. She states her pain management doctor things she needs an MRI of her low back. No recent fall or injuries reported. Update 10/08/2022: Patient is here today for follow-up on her migraines but states her main issue/concern today is her fibromyalgia. She states her migraines are better since her medication was adjusted 6 months ago. She is unable to recall when her last migraine was. When she was previously following with Dr. Harrington he was treating her fibromyalgia. She describes her fibromyalgia pain as burningthat goes from her feet up her calves. She reports that it bothers her to wear clothing, especially when she is in a flare up. She has Ubrelvy that she can use as needed for migraine. She currently takes amitriptyline 25 mg atbedtime. She has not tried venlafaxine. Previous update/history from Dr. Calles below 04/10/2022: ASSESSMENT: Lima Jordan is a 51 y.o. woman who presents for follow up of migraines Ms. Jordan presents for evaluation and management of headaches. They meet ICHD-3 criteria for migraine with aura, based on the presence of at least 5 attacks meeting the following: unilateral location, throbbing/pulsating quality, moderate or severe pain intensity, and worsening or causing avoidanceof physical activity, headache duration of between 4-72 hours, and nausea and/or vomiting and photophobia and phonophobia. It is considered episodic given the frequency of 2 headache days per month, of which all are migrainous. It is intractable. Based on the history and physical exam obtained today, further imaging of the brain is not indicated. She had an MRI of the brain in 2016. She told me that she was told to have mini strokes which could have been white matter lesions, although the report denies any FLAIR abnormalities so I am unsure what this refers to exactly. For acute treatment, she failed Imitrex, Zomig, Maxalt, ibuprofen, acetaminophen, Excedrin, and Aleve. Tramadol worked in the past. Occipital nerve block worked once but failed a second time. Ubrelvyworked but is too expensive. We will try Nurtec, which has similar mechanism as Ubrelvy but may be more affordable. For preventive treatment, amitriptyline works well. It causes some drowsiness but effective cuts the frequency down to 2 per month. We attempted to switch to nortripytline but it caused intolerable weight gain. Failed other trials of duloxetine, propranolol, and lisinopril up to 40mg daily. She is happy with amitriptyline so we will continue it. Problems addressed in this visit: 1. Migraine with aura and without status migrainosus, not intractable Review of patients current medication list along with allergies, past medical history, surgical history, family history, and social history was reviewed and updated as appropriate. Review of Systems Constitutional: Positive for fatigue. Negative for activity change, appetite change, chills, fever and unexpected weight change. HENT: Negative for trouble swallowing. Eyes: Negative for visual disturbance. Respiratory: Negative for cough, shortness of breath and wheezing. Cardiovascular: Negative for chest pain and palpitations. Gastrointestinal: Negative for abdominal pain, nausea and vomiting. Endocrine: Negative for polydipsia, polyphagia and polyuria. Genitourinary: Negative for difficulty urinating. Musculoskeletal: Negative for arthralgias, back pain and neck pain. Skin: Negative for rash. Neurological: Positive for headaches (reports migraine headaches have improved). Negative for dizziness, tremors, seizures, syncope, weakness and light-headedness. Burning from feet to calve region on bilateral legs. Psychiatric/Behavioral: Negative for confusion, decreased concentration, dysphoric mood and sleep disturbance. The patient is not nervous/anxious. Objective BP 101/69 (BP Location: Left arm, Patient Position: Sitting, BP Cuff Size: Adult) Pulse 78 Resp16 SpO2 96% Neurologic Exam Mental Status Oriented to person, place, and time. Attention: normal. Concentration: normal. Speech: speech is normal Level of consciousness: alert Knowledge: good. Cranial Nerves Cranial nerves II through XII intact. CN III, IV, Pupils are equal, round, and reactive to light. Extraocular motions are normal. Right pupil: Size: 2 mm. Consensual response: intact. Accommodation: intact. Left pupil: Size: 2 mm. Consensual response: intact. Accommodation: intact. CN III: no CN III palsy CN : no CN palsy Nystagmus: none Diplopia: none Ophthalmoparesis: none Upgaze: normal Downgaze: normal Conjugate gaze: present Motor Exam Muscle bulk: normal Overall muscle tone: normal Right arm pronator drift: absent Left arm pronator drift: absent Strength Strength 5/5 throughout. Sensory Exam Light touch normal. Gait, Coordination, and Reflexes Gait Gait: normal (Steady gait, ambulates without assistive device.) Coordination Romberg: negative Finger to nose coordination: normal Tremor Resting tremor: absent Intention tremor: absent Action tremor: absent Reflexes Reflexes 2+ except as noted. Right biceps: 2+ Left biceps: 2+ Right triceps: 2+ Left triceps: 2+ Right patellar: 2+ Left patellar: 2+ Physical Exam Vitals and nursing note reviewed. Constitutional: Appearance: She is well-developed. Comments: Patient is very pleasant and cooperative for exam. She is well groomed and dressed appropriate for season. HENT: Head: Normocephalic and atraumatic. Eyes: Extraocular Movements: EOM normal. Pupils: Pupils are equal, round, and reactive to light. Cardiovascular: Rate and Rhythm: Normal rate and regular rhythm. Heart sounds: No murmur heard. Pulmonary: Effort: Pulmonary effort is normal. No respiratory distress. Breath sounds: Normal breath sounds. No wheezing. Abdominal: General: Bowel sounds are normal. There is no distension. Palpations: Abdomen is soft. Musculoskeletal: General: Normal range of motion. Cervical back: Normal range of motion and neck supple. Skin: General: Skin is warm and dry. Findings: No rash. Neurological: Mental Status: She is alert and oriented to person, place, and time. Cranial Nerves: Cranial nerves 2-12 are intact. Motor: Motor strength is normal. Coordination: Kblcny-Uvit-Wsjqyr Test and Romberg Test normal. Gait: Gait is intact. Deep Tendon Reflexes: Reflex Scores: Tricep reflexes are 2+ on the right side and 2+ on the left side. Bicep reflexes are 2+ on the right side and 2+ on the left side. Patellar reflexes are 2+ on the right side and 2+ on the left side. Psychiatric: Speech: Speech normal. Behavior: Behavior normal. Thought Content: Thought content normal. Judgment: Judgment normal. documented in this [id number] Note* Addendum Note - Aury Mera MD - 11/18/2022 9:11 AM EDTAddended by: AURY MERA on: 11/18/2022 09:11 AM Modules accepted: Orders [id number] Miscellaneous Notes* Addendum Note - Aury Mera MD - 11/18/2022 9:11 AM EDTAddended by: AURY MERA on: 11/18/2022 09:11 AM Modules accepted: Orders * Assessment & Plan Note - Aury Mera MD - 11/13/2022 10:32 AM EDT Associated Problem(s): Postartificial menopausal syndrome Chronic problem, was having hot flashes and mood changes. Estradiol does seem to be helping. Can continue at this time. Reevaluate decreasing the dose over the next 5 years. She did have testosteroneinjection by endocrinology which did seem to help her as well. Hair loss is stabilizing. * Assessment & Plan Note - Aury Mera MD - 11/13/2022 10:32 AM EDT Associated Problem(s): Migraine Chart reviewed, she does follow with neurology for this now Effexor was started however she is having some negative side effects which she will discuss with neurology. * Assessment & Plan Note - Aury Mera MD - 11/13/2022 10:31 AM EDT Associated Problem(s): Hypertension Chronic problem, currently controlled. Goal less than 140/90. Continue lisinopril at 40 mg and her amlodipine at 10 mg. Renal function has been within normal limits. * Assessment & Plan Note - Aury Mera MD - 11/13/2022 10:31 AM EDT Associated Problem(s): Hypothyroidism This is a chronic problem, her last TSH and T4 were on 05/2022. They were within normal limits. Continue her Synthroid dose. She remains asymptomatic. documented in this [id number] Evaluation + Plan note* Assessment & Plan Note - Aury Mera MD - 11/13/2022 10:32 AM EDT Associated Problem(s): Postartificial menopausal syndrome Chronic problem, was having hot flashes and mood changes. Estradiol does seem to be helping. Can continue at this time. Reevaluate decreasing the dose over the next 5 years. She did have testosteroneinjection by endocrinology which did seem to help her as well. Hair loss is stabilizing. [id number] Evaluation + Plan note* Assessment & Plan Note - Aury Mera MD - 11/13/2022 10:32 AM EDTAssociated Problem(s): Migraine Chart reviewed, she does follow with neurology for this now Effexor was started however she is having some negative side effects which she will discuss with neurology. [id number] Miscellaneous Notes* Assessment & Plan Note - Aury Mera MD - 11/13/2022 10:32 AM EDTAssociated Problem(s): Postartificial menopausal syndrome Chronic problem, was having hot flashes and mood changes. Estradiol does seem to be helping. Can continue at this time. Reevaluate decreasing the dose over the next 5 years. She did have testosteroneinjection by endocrinology which did seem to help her as well. Hair loss is stabilizing. * Assessment & Plan Note - Aury Mera MD - 11/13/2022 10:32 AM EDT Associated Problem(s): Migraine Chart reviewed, she does follow with neurology for this now Effexor was started however she is having some negative side effects which she will discuss with neurology. * Assessment & Plan Note - Aury Mera MD - 11/13/2022 10:31 AM EDT Associated Problem(s): Hypertension Chronic problem, currently controlled. Goal less than 140/90. Continue lisinopril at 40 mg and her amlodipine at 10 mg. Renal function has been within normal limits. * Assessment & Plan Note - Aury Mera MD - 11/13/2022 10:31 AM EDT Associated Problem(s): Hypothyroidism This is a chronic problem, her last TSH and T4 were on 05/2022. They were within normal limits. Continue her Synthroid dose. She remains asymptomatic. documented in this [id number] Evaluation + Plan note* Assessment & Plan Note - Aury Mera MD - 11/13/2022 10:31 AM EDT Associated Problem(s): Hypertension Chronic problem, currently controlled. Goal less than 140/90. Continue lisinopril at 40 mg and her amlodipine at 10 mg. Renal function has been within normal limits. [id number] Evaluation + Plan note* Assessment & Plan Note - Aury Mera MD - 11/13/2022 10:31 AM EDTAssociated Problem(s): Hypothyroidism This is a chronic problem, her last TSH and T4 were on 05/2022. They were within normal limits. Continue her Synthroid dose. She remains asymptomatic. [id number] History of Present illness Narrative* Aury Mera MD - 11/13/2022 9:31 AM EDT Images from the original note were not included. Lima Jordan is a 52 y.o. female Assessment/Plan: Problem List Items Addressed This Visit Endocrine Hypothyroidism This is a chronic problem, her last TSH and T4 were on 05/2022. They were within normal limits. Continue her Synthroid dose. She remains asymptomatic. Relevant Medications levothyroxine (SYNTHROID, LEVOTHROID) 88 MCG tablet Cardiovascular and Mediastinum Hypertension - Primary Chronic problem, currently controlled. Goal less than 140/90. Continue lisinopril at 40 mg and her amlodipine at 10 mg. Renal function has been within normal limits. Relevant Medications lisinopriL (PRINIVIL,ZESTRIL) 40 MG tablet amLODIPine (NORVASC) 10 MG tablet Migraine Chart reviewed, she does follow with neurology for this now Effexor was started however she is having some negative side effects which she will discuss with neurology. Relevant Medications amLODIPine (NORVASC) 10 MG tablet Other Postartificial menopausal syndrome Chronic problem, was having hot flashes and mood changes. Estradiol does seem to be helping. Can continue at this time. Reevaluate decreasing the dose over the next 5 years. She did have testosteroneinjection by endocrinology which did seem to help her as well. Hair loss is stabilizing. Relevant Medications estradioL (ESTRACE) 2 MG tablet Other Visit Diagnoses Iron deficiency Was low on the last labs. Will repeat labs again, she has been taking otc vitamins Relevant Orders Iron Study with Ferritin Return in about 6 months (around 05/14/2023) for Annual physical. Lima Jordan is a 52 y.o. female who presents for Chief Complaint Patient presents with Hypertension HPI This is a 52-year-old female with a history of postmenopausal hot flashes, hypertension, hypothyroidism, mixed hyperlipidemia, insomnia, chronic migraines and fibromyalgia. She presents today for follow up on her chronic medical issues. She has no acute concerns today. She been taking all her medications as prescribed. She did get a shot of testosterone for her low testosterone levels and overall this did seem to help her. She is not losing any hair on is actually starting to grow back again. She does take biotin and endorses not taking this when she takes her thyroid medication takes her thyroid medication by itself in the morning with no other meds. Hypertension-not checking blood pressure at home, has no symptoms of high blood pressure. Taking medication as prescribed. No side effects to medications. Migraines-currently working with neurology and was started on Effexor. Does not like the way it makes her feel. She feels as she is out of her body. Patient Active Problem List Diagnosis Hypertension Chronic right-sided low back pain without sciatica Postartificial menopausal syndrome Hypothyroidism Vitamin D deficiency Spina bifida occulta Migraine Mixed hyperlipidemia Insomnia Osteopenia Chronic right hip pain Family history of colon cancer S/P bilateral breast reduction Chronic tonsillitis and adenoiditis Chronic diarrhea Hair loss Fibromyalgia Past Surgical History: Procedure Laterality Date APPENDECTOMY 1994 CARPAL TUNNEL RELEASE Right 11/2011 SECTION x 2 - 1991 - 1994 SECTION, CLASSIC 92 and 95 Two 1991 1994 SECTION, LOW TRANSVERSE 1994 CHOLECYSTECTOMY 04/2017 COLONOSCOPY 2017 COLONOSCOPY N/A 07/22/2021 Procedure: COLONOSCOPY WITH BIOPSY; Surgeon: Negro Landrum MD; Location: [facility] [place]; Service: Gastroenterology CYST REMOVAL 09/2016 back EGD N/A 07/22/2021 Procedure: ESOPHAGOGASTRODUODENOSCOPY WITH BIOPSY; Surgeon: Negro Landrum MD; Location: [facility] [place]; Service: Gastroenterology HYSTERECTOMY REDUCTION MAMMAPLASTY Bilateral 02/2020 TONSILLECTOMY Bilateral 11/13/2020 Procedure: TONSILLECTOMY; Surgeon: David Hawthorne MD; Location: [facility] OR; Service: Otolaryngology TONSILLECTOMY Family History Problem Relation Age of Onset Heart disease Mother Hypertension Mother Heart attack Mother Stroke Mother Arthritis Mother It crippled her Hypertension Father Heart disease Father Diabetes Father Stroke Father Alcohol abuse Father Parkinson's Brother Alcohol abuse Brother Colon cancer Maternal Grandmother COPD Paternal Grandmother Cancer Paternal Grandmother Colon cancer diagnosed at 52 at 58 COPD Paternal Grandfather Social History Tobacco Use Smoking status: Never Smokeless tobacco: Never Vaping Use Vaping Use: Some days Substance Use Topics Alcohol use: Not Currently Comment: SOCIALLY - once everyy 3 to 4 months Drug use: No Current Outpatient Medications Medication Sig Dispense Refill amitriptyline (ELAVIL) 25 MG tablet Take up to 4 tabs (100mg) nightly for headaches . 120 tablet 11 BIOTIN ORAL Take 5,000 mcg by mouth once daily . dicyclomine (BENTYL) 10 MG capsule Take 1 cap Twice a day as needed . 30 capsule 0 fluticasone propionate (FLONASE) 50 mcg/actuation nasal spray 1 (one) spray by Each Nare route 2 (two) times a day as needed . glucosam/chond/hyalu/CF borate (MOVE FREE JOINT HEALTH ORAL) Take by mouth . rimegepant 75 mg ODT Dissolve 1 (one) tablet (75 mg total) on top of tongue as needed (at migraine onset) . 8 tablet 5 traZODone (DESYREL) 50 MG tablet Take 1 (one) tablet (50 mg total) by mouth nightly as needed for sleep . 30 tablet 11 ubrogepant (UBRELVY) 100 mg Tab Take 1 (one) tablet (100 mg total) by mouth daily as needed (at migraine onset) Can take 2nd dose after 2 hours if migraine persists. Max dose 200mg per 24 hours. . 16tablet 11 venlafaxine (EFFEXOR) 37.5 MG tablet Take 1 (one) tablet (37.5 mg total) by mouth 2 (two) times a day . 60 tablet 0 amLODIPine (NORVASC) 10 MG tablet Take 1 (one) tablet (10 mg total) by mouth daily . 90 tablet 3 estradioL (ESTRACE) 2 MG tablet Take 1 (one) tablet (2 mg total) by mouth daily . 90 tablet 1 levothyroxine (SYNTHROID, LEVOTHROID) 88 MCG tablet Take 1 (one) tablet (88 mcg total) by mouth once daily . 90 tablet 3 lisinopriL (PRINIVIL,ZESTRIL) 40 MG tablet Take 1 (one) tablet (40 mg total) by mouth daily . 90 tablet 3 No current facility-administered medications for this visit. Review of Systems Constitutional: Negative for diaphoresis and fatigue. Respiratory: Negative for shortness of breath. Cardiovascular: Negative for chest pain. Gastrointestinal: Negative for abdominal pain. Musculoskeletal: Negative. Neurological: Negative for dizziness and headaches. Psychiatric/Behavioral: Negative for dysphoric mood. The patient is not nervous/anxious. Physical Exam: BP 115/78 (BP Location: Right arm, Patient Position: Sitting, BP Cuff Size: Adult) Pulse 75 Temp 98.3 F (36.8 C) (Temporal) Resp 16 Ht 4' 7 Wt 57.5 kg (126 lb 12.8 oz) SpO2 95% BMI 29.47 kg/m Wt Readings from Last 3 Encounters: 11/13/22 57.5 kg (126 lb 12.8 oz) 05/15/22 56.5 kg (124 lb 9.6 oz) 04/10/22 55.3 kg (122 lb) BP Readings from Last 3 Encounters: 11/13/22 115/78 10/08/22 107/71 05/15/22 115/78 Physical Exam Vitals reviewed. Constitutional: General: She is not in acute distress. Appearance: She is well-developed. She is not ill-appearing or diaphoretic. HENT: Head: Normocephalic. Eyes: Conjunctiva/sclera: Conjunctivae normal. Neck: Thyroid: No thyromegaly. Vascular: No carotid bruit. Cardiovascular: Rate and Rhythm: Normal rate and regular rhythm. Pulses: Normal pulses. Heart sounds: Normal heart sounds. No murmur heard. Pulmonary: Effort: Pulmonary effort is normal. No respiratory distress. Breath sounds: Normal breath sounds. Musculoskeletal: Cervical back: Normal range of motion. Right lower leg: No edema. Left lower leg: No edema. Lymphadenopathy: Cervical: No cervical adenopathy. Skin: Capillary Refill: Capillary refill takes less than 2 seconds. Findings: No rash. Neurological: Mental Status: She is alert and oriented to person, place, and time. Psychiatric: Mood and Affect: Mood normal. Behavior: Behavior normal. Thought Content: Thought content normal. Health Maintenance Due Topic Date Due COVID-19 Vaccine (3 - Moderna series) 11/01/2020 Lipid Panel 07/09/2022 Zoster Vaccines (1 of 2) Never done Sequential Influenza Vaccine (1) 11/07/2022 Goals Blood Pressure < 140/90 High blood pressure makes your heart work too hard. It can cause heart attack, stroke and kidney disease. Blood pressure goal is 140/90 or less. You will complete 150 minutes of formal exercise per week. You will maintain a BMI of 18.5-24.9 TOTAL CHOLESTEROL < 199 Total cholesterol goal is less than 199 Triglyceride goal is less than 150 HDL or good cholesterol is above 45 LDL goal is less than 100 Please note: Portions of this chart may have been created with [employer] voice recognition software. Occasional wrong-word or sound-like substitutions may have occurred due to inherent limitations of the voice recognition software. Please read the chart carefully and recognize, using context, where the substitutions have occurred. For any new medications prescribed today, patient was educated about indications for the medication, how to take the medication and potential side effects of the medications. documented in this [id number] History of Present illness Narrative* Aury Mera MD - 11/13/2022 9:31 AM EDT Images from the original note were not included. Lima Jordan is a 52 y.o. female Assessment/Plan: Problem List Items Addressed This Visit Endocrine Hypothyroidism This is a chronic problem, her last TSH and T4 were on 05/2022. They were within normal limits. Continue her Synthroid dose. She remains asymptomatic. Relevant Medications levothyroxine (SYNTHROID, LEVOTHROID) 88 MCG tablet Cardiovascular and Mediastinum Hypertension - Primary Chronic problem, currently controlled. Goal less than 140/90. Continue lisinopril at 40 mg and her amlodipine at 10 mg. Renal function has been within normal limits. Relevant Medications lisinopriL (PRINIVIL,ZESTRIL) 40 MG tablet amLODIPine (NORVASC) 10 MG tablet Migraine Chart reviewed, she does follow with neurology for this now Effexor was started however she is having some negative side effects which she will discuss with neurology. Relevant Medications amLODIPine (NORVASC) 10 MG tablet Other Postartificial menopausal syndrome Chronic problem, was having hot flashes and mood changes. Estradiol does seem to be helping. Can continue at this time. Reevaluate decreasing the dose over the next 5 years. She did have testosteroneinjection by endocrinology which did seem to help her as well. Hair loss is stabilizing. Relevant Medications estradioL (ESTRACE) 2 MG tablet Other Visit Diagnoses Iron deficiency Was low on the last labs. Will repeat labs again, she has been taking otc vitamins Relevant Orders Iron Study with Ferritin Return in about 6 months (around 05/14/2023) for Annual physical. Lima Jordan is a 52 y.o. female who presents for Chief Complaint Patient presents with Hypertension HPI This is a 52-year-old female with a history of postmenopausal hot flashes, hypertension, hypothyroidism, mixed hyperlipidemia, insomnia, chronic migraines and fibromyalgia. She presents today for follow up on her chronic medical issues. She has no acute concerns today. She been taking all her medications as prescribed. She did get a shot of testosterone for her low testosterone levels and overall this did seem to help her. She is not losing any hair on is actually starting to grow back again. She does take biotin and endorses not taking this when she takes her thyroid medication takes her thyroid medication by itself in the morning with no other meds. Hypertension-not checking blood pressure at home, has no symptoms of high blood pressure. Taking medication as prescribed. No side effects to medications. Migraines-currently working with neurology and was started on Effexor. Does not like the way it makes her feel. She feels as she is out of her body. Patient Active Problem List Diagnosis Hypertension Chronic right-sided low back pain without sciatica Postartificial menopausal syndrome Hypothyroidism Vitamin D deficiency Spina bifida occulta Migraine Mixed hyperlipidemia Insomnia Osteopenia Chronic right hip pain Family history of colon cancer S/P bilateral breast reduction Chronic tonsillitis and adenoiditis Chronic diarrhea Hair loss Fibromyalgia Past Surgical History: Procedure Laterality Date APPENDECTOMY 1994 CARPAL TUNNEL RELEASE Right 11/2011 SECTION x 2 - 1991 - 1994 SECTION, CLASSIC 92 and 95 Two 1991 1994 SECTION, LOW TRANSVERSE 1994 CHOLECYSTECTOMY 04/2017 COLONOSCOPY 2017 COLONOSCOPY N/A 07/22/2021 Procedure: COLONOSCOPY WITH BIOPSY; Surgeon: Negro Landrum MD; Location: [facility] [place]; Service: Gastroenterology CYST REMOVAL 09/2016 back EGD N/A 07/22/2021 Procedure: ESOPHAGOGASTRODUODENOSCOPY WITH BIOPSY; Surgeon: Negro Landrum MD; Location: [facility] [place]; Service: Gastroenterology HYSTERECTOMY REDUCTION MAMMAPLASTY Bilateral 02/2020 TONSILLECTOMY Bilateral 11/13/2020 Procedure: TONSILLECTOMY; Surgeon: David Hawthorne MD; Location: [facility] OR; Service: Otolaryngology TONSILLECTOMY Family History Problem Relation Age of Onset Heart disease Mother Hypertension Mother Heart attack Mother Stroke Mother Arthritis Mother It crippled her Hypertension Father Heart disease Father Diabetes Father Stroke Father Alcohol abuse Father Parkinson's Brother Alcohol abuse Brother Colon cancer Maternal Grandmother COPD Paternal Grandmother Cancer Paternal Grandmother Colon cancer diagnosed at 52 at 58 COPD Paternal Grandfather Social History Tobacco Use Smoking status: Never Smokeless tobacco: Never Vaping Use Vaping Use: Some days Substance Use Topics Alcohol use: Not Currently Comment: SOCIALLY - once everyy 3 to 4 months Drug use: No Current Outpatient Medications Medication Sig Dispense Refill amitriptyline (ELAVIL) 25 MG tablet Take up to 4 tabs (100mg) nightly for headaches . 120 tablet 11 BIOTIN ORAL Take 5,000 mcg by mouth once daily . dicyclomine (BENTYL) 10 MG capsule Take 1 cap Twice a day as needed . 30 capsule 0 fluticasone propionate (FLONASE) 50 mcg/actuation nasal spray 1 (one) spray by Each Nare route 2 (two) times a day as needed . glucosam/chond/hyalu/CF borate (MOVE FREE JOINT HEALTH ORAL) Take by mouth . rimegepant 75 mg ODT Dissolve 1 (one) tablet (75 mg total) on top of tongue as needed (at migraine onset) . 8 tablet 5 traZODone (DESYREL) 50 MG tablet Take 1 (one) tablet (50 mg total) by mouth nightly as needed for sleep . 30 tablet 11 ubrogepant (UBRELVY) 100 mg Tab Take 1 (one) tablet (100 mg total) by mouth daily as needed (at migraine onset) Can take 2nd dose after 2 hours if migraine persists. Max dose 200mg per 24 hours. . 16tablet 11 venlafaxine (EFFEXOR) 37.5 MG tablet Take 1 (one) tablet (37.5 mg total) by mouth 2 (two) times a day . 60 tablet 0 amLODIPine (NORVASC) 10 MG tablet Take 1 (one) tablet (10 mg total) by mouth daily . 90 tablet 3 estradioL (ESTRACE) 2 MG tablet Take 1 (one) tablet (2 mg total) by mouth daily . 90 tablet 1 levothyroxine (SYNTHROID, LEVOTHROID) 88 MCG tablet Take 1 (one) tablet (88 mcg total) by mouth once daily . 90 tablet 3 lisinopriL (PRINIVIL,ZESTRIL) 40 MG tablet Take 1 (one) tablet (40 mg total) by mouth daily . 90 tablet 3 No current facility-administered medications for this visit. Review of Systems Constitutional: Negative for diaphoresis and fatigue. Respiratory: Negative for shortness of breath. Cardiovascular: Negative for chest pain. Gastrointestinal: Negative for abdominal pain. Musculoskeletal: Negative. Neurological: Negative for dizziness and headaches. Psychiatric/Behavioral: Negative for dysphoric mood. The patient is not nervous/anxious. Physical Exam: BP 115/78 (BP Location: Right arm, Patient Position: Sitting, BP Cuff Size: Adult) Pulse 75 Temp 98.3 F (36.8 C) (Temporal) Resp 16 Ht 4' 7 Wt 57.5 kg (126 lb 12.8 oz) SpO2 95% BMI 29.47 kg/m Wt Readings from Last 3 Encounters: 11/13/22 57.5 kg (126 lb 12.8 oz) 05/15/22 56.5 kg (124 lb 9.6 oz) 04/10/22 55.3 kg (122 lb) BP Readings from Last 3 Encounters: 11/13/22 115/78 10/08/22 107/71 05/15/22 115/78 Physical Exam Vitals reviewed. Constitutional: General: She is not in acute distress. Appearance: She is well-developed. She is not ill-appearing or diaphoretic. HENT: Head: Normocephalic. Eyes: Conjunctiva/sclera: Conjunctivae normal. Neck: Thyroid: No thyromegaly. Vascular: No carotid bruit. Cardiovascular: Rate and Rhythm: Normal rate and regular rhythm. Pulses: Normal pulses. Heart sounds: Normal heart sounds. No murmur heard. Pulmonary: Effort: Pulmonary effort is normal. No respiratory distress. Breath sounds: Normal breath sounds. Musculoskeletal: Cervical back: Normal range of motion. Right lower leg: No edema. Left lower leg: No edema. Lymphadenopathy: Cervical: No cervical adenopathy. Skin: Capillary Refill: Capillary refill takes less than 2 seconds. Findings: No rash. Neurological: Mental Status: She is alert and oriented to person, place, and time. Psychiatric: Mood and Affect: Mood normal. Behavior: Behavior normal. Thought Content: Thought content normal. Health Maintenance Due Topic Date Due COVID-19 Vaccine (3 - Moderna series) 11/01/2020 Lipid Panel 07/09/2022 Zoster Vaccines (1 of 2) Never done Sequential Influenza Vaccine (1) 11/07/2022 Goals Blood Pressure < 140/90 High blood pressure makes your heart work too hard. It can cause heart attack, stroke and kidney disease. Blood pressure goal is 140/90 or less. You will complete 150 minutes of formal exercise per week. You will maintain a BMI of 18.5-24.9 TOTAL CHOLESTEROL < 199 Total cholesterol goal is less than 199 Triglyceride goal is less than 150 HDL or good cholesterol is above 45 LDL goal is less than 100 Please note: Portions of this chart may have been created with [employer] voice recognition software. Occasional wrong-word or sound-like substitutions may have occurred due to inherent limitations of the voice recognition software. Please read the chart carefully and recognize, using context, where the substitutions have occurred. For any new medications prescribed today, patient was educated about indications for the medication, how to take the medication and potential side effects of the medications. documented in this [id number] Evaluation + Plan note* Assessment & Plan Note - Nataliya Pino - 05/15/2022 9:42 AM ESTAssociated Problem(s): Postartificial menopausal syndrome History of ovarian cancer s/p hysterectomy. Estradiol refilled. [id number] Miscellaneous Notes* Assessment & Plan Note - Nataliya Pino - 05/15/2022 9:42 AM ESTAssociated Problem(s): Postartificial menopausal syndrome History of ovarian cancer s/p hysterectomy. Estradiol refilled. * Assessment & Plan Note - Nataliyapj Pino - 05/15/2022 9:41 AM ESTAssociated Problem(s): Hypothyroidism Chronic, controlled. Last thyroid labs (07/2021) within normal limits. Synthroid refilled. * Assessment & Plan Note - Nataliya Pino - 05/15/2022 8:52 AM ESTAssociated Problem(s): Hypertension Chronic, controlled. Goal <140/90. Amlodipine and lisinopril refilled. Last CMP (07/2021) showed renal values within normal limits. * Assessment & Plan Note - Nataliya Pino - 05/15/2022 8:43 AM ESTAssociated Problem(s): Hair loss New problem, started 6 months ago. Most likely telogen effluvium due to diffuse nature of hair loss. Causes include stress, nutritional, and endocrine disorders. Other differentials include androgenic alopecia. CBC, thyroid, iron, B12/folate, VIRGEN, ESR and testosterone labs ordered. Can try Rogaine and consider adding on progesterone or spironolactone based on further workup. * Assessment & Plan Note - Nataliya Pino - 05/15/2022 8:38 AM ESTAssociated Problem(s): Encounter for well adult exam with abnormal findings -Counseled on healthy diet. -Counseled on importance of exercise - 150mins/ week of moderate activity as tolerated -Depression screening was negative -Tobacco counseling not indicated -Alcohol screening negative -Blood pressure screening negative -Immunizations reviewed. Pt did not want influenza vaccine today. -Counseled on STDs, use of condoms, avoidance of unintended and contraceptive alternatives. STD screening done today. HIV and Hep C screenings done today. -Lab screening for hyperlipidemia, A1C for diabetes - not done today, most recently completed 07/2021 -Discussed pap recommendations: last done 04/29/2020, no longer recommended -Discussed breast cancer screening: last done 05/07/2021, due now -Discussed colon cancer screening: last done , due 2024 -Discussed osteoporosis screening: not indicated documented in this [id number] Evaluation + Plan note* Assessment & Plan Note - Nataliya Pino - 05/15/2022 9:41 AM ESTAssociated Problem(s): Hypothyroidism Chronic, controlled. Last thyroid labs (07/2021) within normal limits. Synthroid refilled. [id number] Evaluation + Plan note* Assessment & Plan Note - Nataliya Pino - 05/15/2022 8:52 AM ESTAssociated Problem(s): Hypertension Chronic, controlled. Goal <140/90. Amlodipine and lisinopril refilled. Last CMP (07/2021) showed renal values within normal limits. [id number] Evaluation + Plan note* Assessment & Plan Note - Nataliya Pino - 05/15/2022 8:43 AM ESTAssociated Problem(s): Hair loss New problem, started 6 months ago. Most likely telogen effluvium due to diffuse nature of hair loss. Causes include stress, nutritional, and endocrine disorders. Other differentials include androgenic alopecia. CBC, thyroid, iron, B12/folate, VIRGEN, ESR and testosterone labs ordered. Can try Rogaine and consider adding on progesterone or spironolactone based on further workup. [id number] Evaluation + Plan note* Assessment & Plan Note - Nataliya Pino - 05/15/2022 8:38 AM ESTAssociated Problem(s): Encounter for well adult exam with abnormal findings -Counseled on healthy diet. -Counseled on importance of exercise - 150mins/ week of moderate activity as tolerated -Depression screening was negative -Tobacco counseling not indicated -Alcohol screening negative -Blood pressure screening negative -Immunizations reviewed. Pt did not want influenza vaccine today. -Counseled on STDs, use of condoms, avoidance of unintended and contraceptive alternatives. STD screening done today. HIV and Hep C screenings done today. -Lab screening for hyperlipidemia, A1C for diabetes - not done today, most recently completed 07/2021 -Discussed pap recommendations: last done 04/29/2020, no longer recommended -Discussed breast cancer screening: last done 05/07/2021, due now -Discussed colon cancer screening: last done , due 2024 -Discussed osteoporosis screening: not indicated [id number] History of Present illness Narrative* Aury Mera MD - 05/15/2022 8:20 AM EST Depression Screening 06/18/2018 09/26/2019 05/15/2022 Little interest or pleasure in doing things 0 0 0 Feeling down, depressed, or hopeless 0 0 0 PHQ-2 Total Score 0 0 0 Trouble falling or staying asleep, or sleeping too much 3 0 1 Feeling tired or having little energy 3 0 1 Poor appetite or overeating 0 0 0 Feeling bad about yourself - or that you are a failure or have let yourself or your family down 0 00 Trouble concentrating on things, such as reading the newspaper or watching television 0 0 1 Moving or speaking so slowly that other people could have noticed. Or the opposite - being so fidgety or restless that you have been moving around a lot more than usual 3 0 0 Thoughts that you would be better off , or of hurting yourself in some way 0 0 0 PHQ-9 Total Score 9 0 3 If you checked off any problems, how difficult have these problems made it for you to do your work,take care of things at home, or get along with other people? Very difficult - Not difficult at all * Nataliya Pino - 05/15/2022 7:40 AM EST Lima Jordan is a 51 y.o. female Assessment/Plan: Problem List Items Addressed This Visit Endocrine Hypothyroidism Chronic, controlled. Last thyroid labs (07/2021) within normal limits. Synthroid refilled. Relevant Medications levothyroxine (SYNTHROID, LEVOTHROID) 88 MCG tablet Cardiovascular and Mediastinum Hypertension Chronic, controlled. Goal <140/90. Amlodipine and lisinopril refilled. Last CMP (07/2021) showed renal values within normal limits. Relevant Medications lisinopriL (PRINIVIL,ZESTRIL) 40 MG tablet amLODIPine (NORVASC) 10 MG tablet Other Encounter for well adult exam with abnormal findings - Primary -Counseled on healthy diet. -Counseled on importance of exercise - 150mins/ week of moderate activity as tolerated -Depression screening was negative -Tobacco counseling not indicated -Alcohol screening negative -Blood pressure screening negative -Immunizations reviewed. Pt did not want influenza vaccine today. -Counseled on STDs, use of condoms, avoidance of unintended and contraceptive alternatives. STD screening done today. HIV and Hep C screenings done today. -Lab screening for hyperlipidemia, A1C for diabetes - not done today, most recently completed 07/2021 -Discussed pap recommendations: last done 04/29/2020, no longer recommended -Discussed breast cancer screening: last done 05/07/2021, due now -Discussed colon cancer screening: last done , due 2024 -Discussed osteoporosis screening: not indicated Relevant Orders HIV 1/2 Screen (4th Generation) Hepatitis C Antibody Hair loss New problem, started 6 months ago. Most likely telogen effluvium due to diffuse nature of hair loss. Causes include stress, nutritional, and endocrine disorders. Other differentials include androgenic alopecia. CBC, thyroid, iron, B12/folate, VIRGEN, ESR and testosterone labs ordered. Can try Rogaine and consider adding on progesterone or spironolactone based on further workup. Relevant Orders TSH (Completed) T4, Free (Completed) CBC and Differential (Completed) Iron Study with Ferritin (Completed) VIRGEN B12/Folate (Completed) Sedimentation Rate (Completed) Testosterone, Total and Free (Calculated) Postartificial menopausal syndrome History of ovarian cancer s/p hysterectomy. Estradiol refilled. Relevant Medications estradioL (ESTRACE) 2 MG tablet Other Visit Diagnoses Encounter for screening for malignant neoplasm of breast, unspecified screening modality Relevant Orders Mammography Screening Julio Bilateral Return in about 6 months (around 11/15/2022) for HTN/Thyroid f/u . Lima Jordan is a 51 y.o. female who presents for Chief Complaint Patient presents with Annual Exam Gap Closure (Health Maintenance) Mammogram due on 05/07/2022 HPI 51 y.o. female with history significant for hypertension, hypothyroidism, and ovarian cancer s/p hysterectomy presents for preventative health exam. Any concerns/complaints: Hair loss for last 6 months, losing clumps of hair. Diffuse pattern. She currently takes collagen, biotin, vitamin D, B12, and iron supplements. She does not color her hair. Admits to intentional weight loss, 10-11 lbs since last July. Admits to some cold intolerance. Denies heat intolerance, polyphagia, polydipsia, constipation, diarrhea, and changes in mood. Nutrition/Exercise: Diet: more protein (poultry, fish) and less red meat, lots of fruits and veggies, apple juice on most days with breakfast Caffeine: 3 red bulls/week Water: feels like she drinks a lot Exercise: no formal exercise, job is physically demanding, on her feet 12 hrs/day Any Family history of breast cancer, uterine cancer or ovarian cancer? Maternal aunt - breast cancer, personal hx of ovarian cancer Any family history of colon cancer? Paternal grandmother, dx at 52 Obstetrics & gynecology History Last menstrual period: 1995 (hx of hysterectomy) Sexually active: yes Any breast concerns? no Last mammogram: 05/07/2021, due now Last pap smear (HPV): 04/29/2020, no longer recommended Last DEXA scan: recalls having this done but not sure when, not indicated at this time Last Colonoscopy: 07/22/2021, due 2024 Immunizations due Influenza Patient Active Problem List Diagnosis Hypertension Chronic right-sided low back pain without sciatica Postartificial menopausal syndrome Hypothyroidism Vitamin D deficiency Spina bifida occulta Migraine Mixed hyperlipidemia Insomnia Osteopenia Chronic right hip pain Family history of colon cancer Fatigue S/P bilateral breast reduction Chronic tonsillitis and adenoiditis Epigastric pain Chronic diarrhea Encounter for well adult exam with abnormal findings Hair loss Past Surgical History: Procedure Laterality Date CARPAL TUNNEL RELEASE Right 11/2011 SECTION x 2 - 1991 - 1994 CHOLECYSTECTOMY 04/2017 COLONOSCOPY 2016 COLONOSCOPY N/A 07/22/2021 Procedure: COLONOSCOPY WITH BIOPSY; Surgeon: Negro Landrum MD; Location: [facility] [place] OR; Service: Gastroenterology CYST REMOVAL 09/2016 back EGD N/A 07/22/2021 Procedure: ESOPHAGOGASTRODUODENOSCOPY WITH BIOPSY; Surgeon: Negro Landrum MD; Location: [facility] [place] OR; Service: Gastroenterology HYSTERECTOMY REDUCTION MAMMAPLASTY Bilateral 02/2020 TONSILLECTOMY Bilateral 11/13/2020 Procedure: TONSILLECTOMY; Surgeon: David Hawthorne MD; Location: [facility] OR; Service: Otolaryngology TONSILLECTOMY Family History Problem Relation Age of Onset Heart disease Mother Hypertension Mother Heart attack Mother Stroke Mother Hypertension Father Heart disease Father Diabetes Father Stroke Father Parkinson's Brother Alcohol abuse Brother Colon cancer Maternal Grandmother COPD Paternal Grandmother COPD Paternal Grandfather Social History Tobacco Use Smoking status: Never Smokeless tobacco: Never Vaping Use Vaping Use: Some days Substance Use Topics Alcohol use: Not Currently Comment: SOCIALLY - once everyy 3 to 4 months Drug use: No Tobacco Counseling: Counseling given: No Current Outpatient Medications Medication Sig Dispense Refill amitriptyline (ELAVIL) 25 MG tablet Take up to 4 tabs (100mg) nightly for headaches . 120 tablet 11 BIOTIN ORAL Take 5,000 mcg by mouth once daily . dicyclomine (BENTYL) 10 MG capsule Take 1 cap Twice a day as needed . 30 capsule 0 rimegepant 75 mg ODT Dissolve 1 (one) tablet (75 mg total) on top of tongue as needed (at migraine onset) . 8 tablet 5 traZODone (DESYREL) 50 MG tablet Take 1 (one) tablet (50 mg total) by mouth nightly as needed for sleep . 30 tablet 11 ubrogepant (UBRELVY) 100 mg Tab Take 1 (one) tablet (100 mg total) by mouth daily as needed (at migraine onset) Can take 2nd dose after 2 hours if migraine persists. Max dose 200mg per 24 hours. . 16tablet 11 amLODIPine (NORVASC) 10 MG tablet Take 1 (one) tablet (10 mg total) by mouth daily . 90 tablet 1 estradioL (ESTRACE) 2 MG tablet Take 1 (one) tablet (2 mg total) by mouth daily . 90 tablet 1 fluticasone propionate (FLONASE) 50 mcg/actuation nasal spray 1 (one) spray by Each Nare route 2 (two) times a day . glucosam/chond/hyalu/CF borate (MOVE FREE JOINT HEALTH ORAL) Take by mouth . levothyroxine (SYNTHROID, LEVOTHROID) 88 MCG tablet Take 1 (one) tablet (88 mcg total) by mouth once daily . 90 tablet 1 lisinopriL (PRINIVIL,ZESTRIL) 40 MG tablet Take 1 (one) tablet (40 mg total) by mouth daily . 90 tablet 1 No current facility-administered medications for this visit. Review of Systems Constitutional: Negative for appetite change, fever and unexpected weight change. HENT: Negative for congestion, rhinorrhea and sore throat. Respiratory: Negative for cough, shortness of breath and wheezing. Cardiovascular: Negative for chest pain, palpitations and leg swelling. Gastrointestinal: Negative for abdominal distention, constipation, diarrhea and vomiting. Endocrine: Positive for cold intolerance. Negative for heat intolerance, polydipsia and polyphagia. Musculoskeletal: Positive for arthralgias and myalgias. Negative for gait problem. Neurological: Positive for headaches. Negative for dizziness and light-headedness. Psychiatric/Behavioral: Negative for dysphoric mood. The patient is not nervous/anxious. Physical Exam: BP 115/78 (BP Location: Right arm, Patient Position: Sitting, BP Cuff Size: Adult) Pulse 93 Temp 98.6 F (37 C) (Temporal) Resp 16 Ht 4' 7 Wt 56.5 kg (124 lb 9.6 oz) SpO2 97% BMI 28.96 kg/m Wt Readings from Last 3 Encounters: 05/15/22 56.5 kg (124 lb 9.6 oz) 04/10/22 55.3 kg (122 lb) 04/08/22 56.7 kg (125 lb) BP Readings from Last 3 Encounters: 05/15/22 115/78 04/10/22 126/85 04/08/22 118/81 Physical Exam Vitals reviewed. Constitutional: General: She is not in acute distress. HENT: Head: Normocephalic and atraumatic. Comments: Diffuse hair loss Eyes: General: No scleral icterus. Conjunctiva/sclera: Conjunctivae normal. Neck: Thyroid: No thyromegaly. Cardiovascular: Rate and Rhythm: Normal rate and regular rhythm. Heart sounds: Normal heart sounds. No murmur heard. No friction rub. No gallop. Pulmonary: Effort: Pulmonary effort is normal. Breath sounds: Normal breath sounds. No wheezing, rhonchi or rales. Abdominal: General: Abdomen is flat. Bowel sounds are normal. There is no distension. Palpations: Abdomen is soft. There is no mass. Tenderness: There is no abdominal tenderness. There is no guarding. Hernia: No hernia is present. Musculoskeletal: Cervical back: No tenderness. Lymphadenopathy: Cervical: No cervical adenopathy. Neurological: Mental Status: She is alert. Psychiatric: Mood and Affect: Mood normal. Thought Content: Thought content normal. Judgment: Judgment normal. Health Maintenance Due Topic Date Due HIV Screening Never done Hepatitis C Screening Never done COVID-19 Vaccine (3 - Booster for Moderna series) 11/01/2020 Sequential Influenza Vaccine (1) 11/07/2021 Tetanus: Every 10yrs 12/14/2021 Mammogram 05/07/2022 Goals Blood Pressure < 140/90 High blood pressure makes your heart work too hard. It can cause heart attack, stroke and kidney disease. Blood pressure goal is 140/90 or less. You will complete 150 minutes of formal exercise per week. You will maintain a BMI of 18.5-24.9 TOTAL CHOLESTEROL < 199 Total cholesterol goal is less than 199 Triglyceride goal is less than 150 HDL or good cholesterol is above 45 LDL goal is less than 100 Please note: Portions of this chart may have been created with [employer] voice recognition software. Occasional wrong-word or sound-like substitutions may have occurred due to inherent limitations of the voice recognition software. Please read the chart carefully and recognize, using context, where the substitutions have occurred. For any new medications prescribed today, patient was educated about indications for the medication, how to take the medication and potential side effects of the medications. Associated attestation - Aury Mera MD - 05/15/2022 2:25 PM EST I was present with the medical student for the service. I personally verified the history of present illness and performed the physical examination and medical decision making. I have verified all ofthe medical students documentation for this encounter. documented in this [id number] Instructions* Patient Instructions* Hugh Calles MD - 04/10/2022 9:03 AM EST Ms. Jordan, We are seeing you today for your diagnosis of migraines. See below for your treatment plan. If you have any questions, please do not hesitate to call. Acute Headache Treatment: 1) switch to Nurtec (rimegepant) oral dissolving at earliest sign of migraine. - With the exception of new agents such as Ubrelvy or Nurtec, you should limit all abortives including over the counter medications and triptans/ergots to 10 days/month of use or less. Headache Preventive Treatment: *Please keep in mind that it takes 4-6 weeks for the medication to start working well and 2-3 months at the appropriate dose before deciding if it will be useful or not. If it is not helping at all by this time, then we will discuss other medications to try. Supplements may take 3-6 months until you see full effect. 1) amitriptyline tabs, up to 100mg nightly. It was a pleasure taking care of you, and we all wish you the best of health. For concerns regarding medicines, adjusting doses or other questions: Call : [phone] (for Neurology / Dr. Calles) - leave a message if no one is available. [employer] - the best way to send messages directly to your doctors, or request Drug Refills. Call [phone] to set up [employer] on your smart phone or computer. Mailing Address: Attn: Dr. Hugh Calles [address] [place] [address]# [id number], [facility] [id number] Our documented in this [id number] History of Present illness Narrative* Hugh Calles MD - 04/10/2022 9:00 AM EST Neurology Follow Up Note [facility] Date of Service: 04/10/22 Service Type: Follow up, neurology Patient: Lima Jordan Date of : 1970 (51 y.o.) PCP: Aury Mera MD ASSESSMENT: Lima Jordan is a 51 y.o. woman who presents for follow up of migraines Ms. Jordan presents for evaluation and management of headaches. They meet ICHD-3 criteria for migraine with aura, based on the presence of at least 5 attacks meeting the following: unilateral location, throbbing/pulsating quality, moderate or severe pain intensity, and worsening or causing avoidanceof physical activity, headache duration of between 4-72 hours, and nausea and/or vomiting and photophobia and phonophobia. It is considered episodic given the frequency of 2 headache days per month, of which all are migrainous. It is intractable. Based on the history and physical exam obtained today, further imaging of the brain is not indicated. She had an MRI of the brain in 2016. She told me that she was told to have mini strokes which could have been white matter lesions, although the report denies any FLAIR abnormalities so I am unsure what this refers to exactly. For acute treatment, she failed Imitrex, Zomig, Maxalt, ibuprofen, acetaminophen, Excedrin, and Aleve. Tramadol worked in the past. Occipital nerve block worked once but failed a second time. Ubrelvyworked but is too expensive. We will try Nurtec, which has similar mechanism as Ubrelvy but may be more affordable. For preventive treatment, amitriptyline works well. It causes some drowsiness but effective cuts the frequency down to 2 per month. We attempted to switch to nortripytline but it caused intolerable weight gain. Failed other trials of duloxetine, propranolol, and lisinopril up to 40mg daily. She is happy with amitriptyline so we will continue it. Problems addressed in this visit: 1. Migraine with aura and without status migrainosus, not intractable PLAN: Medication changes: amitriptyline 50-75mg nightly. At her request, refilled trazodone which she uses 25-50mg nightly PRN for sleep. Nurtec 75mg at migraine onset. Labs: none Imaging: none Other: none Follow Up: 6 months Attestation: Discussed risks, benefits and alternatives regarding treatment options, and diagnoses with Ms. Jordan. Answered questions and we discussed plan at length. I independently reviewed past history, previous clinic notes, lab results, allergies, medications and radiology images which are summarized in this note with annotations wherever appropriate. Time statement: A total of 31 minutes were spent on this encounter. This includes the following patient-centered activities: 1. Preparation for patient's visit (reviewing previous chart, current medical records, previous history, exam, test, procedure, and medications) 2. Face to face encounter obtaining history from the patient/family/caregivers; performing evaluation and examination; ordering medications, tests, or procedures; referring and communicating with other healthcare professionals; counseling and education of the patient/family/caregiver; independently interpreting results (tests, labs, procedures, imaging) and communicating and explaining results tothe patient/family/caregiver 3. Coordination of care; preparing and printing discharge instruction and any educational material for the patient and caregivers. Documenting clinical information in the electronic and other health records. Reviewing OARRS as needed. Hugh Calles MD Staff Neurologist [facility] [address] [id number], [facility] [address] [facility] Fax: [phone] 04/10/22 Subjective Chief Complaint/Reason for Consult: migraines Informant(s): self History of Present Illness: Lima Jordan is a 51 y.o. woman who reports a pertinent history of migraines, who presentsto the office today for migraines. Headache history review Onset/history: Age 21 during Prodrome: no Aura: yes flashing lights in both eyes Location: Right side of the head Quality: Throbbing/Pounding and Pressure/Squeezing Pain intensity: 10/10 Duration of episodes: 1-2 days Frequency (number of total headache days): 2 migraines (1-2 days each) per month now Associated symptoms: Nausea/vomiting: nausea and vomiting Photophobia/phonophobia: Yes and Yes Dysautonomic features (unilateral tearing, conjunctival injection, ptosis, nasal congestion/rhinorrhea, ear fullness): No Associated sensory features: No Any strokelike features? No Other symptoms? no Post-ictal symptoms: fatigue Most bothersome symptom: pain Disability: yes, missing work Aggravating factors: Worse with physical activity: Yes Worse with bending over: No Worse with cough: No Menstrual period involvement: N/A Other aggravating factors: None Triggers: Chocolate and perfumes (avoids chocolate but exposed to perfumes sometimes at her job) Relieving factors: Sleep, cold Medications tried: Preventive medications: Amitripyline (cuts frequency down but causes drowsiness), duloxetine ineffective, lisinopril ineffective, occipital nerve blocks worked once but failed the 2nd time. Nortriptyline caused weight gain. Abortive medications: Acetaminophen, Excedrin migraine (ASA/acetaminophen/caffeine), Ibuprofen, naproxen, Rizatriptan (Maxalt), Sumatriptan (Imitrex), and Zolmitriptan (Zomig) all ineffective. Ubrelvy works but was too expensive. Current medications: Amitriptyline 50-75 nightly (depending on how late she can sleep in next day) Response to current medications: Decent preventive benefit, poor rescue control Risk Factors: No head trauma, prior intracranial surgeries, or LINE PATROLMAN infections Family history: migraine headaches in mother Previous evaluation: Followed with Dr. Harrington. 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 Harrington said were migraine-related. A previous MRI was, by report, normal in 2016 so I am unclear what exactly he was talking about. Interval history 04/10/22: Nortriptyline caused weight gain, so we switched back to amitriptyline. It works well, she takes 50mg most nights, 75mg for stressful nights. Weight was entirely lost after getting off the nortriptyline. Still occasional migraines, 2 per month or so. Urelvy worked but is too expensive. Patient is having increasing low back pain/sciatica issues related to degenerated discs as well. Review of Systems: All systems reviewed and negative except those documented in the History of Present Illness (HPI). Pertinent positives are documented below: + migraines + low back pain/sciatica Medical/Surgical/Social/Family Histories: Pertinent Family Hx: migraines in mother; reportedly brother has Parkinson's and strokes in both parents. 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 She has a past surgical history that includes Hysterectomy; Section; Cyst Removal (09/2016); Carpal tunnel release (Right, 11/2011); Cholecystectomy (04/2017); Colonoscopy (2016); Reduction mammaplasty (Bilateral, 02/2020); Tonsillectomy (Bilateral, 11/13/2020); tonsillectomy; Colonoscopy (N/A, 07/22/2021); and Egd (N/A, 07/22/2021). She family history includes Alcohol abuse in her brother; COPD in her paternal grandfather and paternal grandmother; Colon cancer in her maternal grandmother; Diabetes in her father; Heart attack in her mother; Heart disease in her father and mother; Hypertension in her father and mother; Parkinson's in her brother; Stroke in her father and mother. She reports that she has never smoked. She has never used smokeless tobacco. She reports that she does not currently use alcohol. She reports that she does not use drugs. Allergies: Allergies: Bee venom protein (honey bee), Asa [aspirin], Caffeine, Ct: iodinated contrast- oral and iv dye, Morphine, Oxycodone-acetaminophen, Penicillins, Red dye, Sulfamethoxazole, and Trimethoprim HOME Medications: Current Outpatient Medications Medication Instructions amitriptyline (ELAVIL) 25 MG tablet Take up to 4 tabs (100mg) nightly for headaches amLODIPine (NORVASC) 10 mg, Oral, Daily amoxicillin-clavulanate (AUGMENTIN) 875-125 mg per tablet 1 tablet, Oral, 2 times daily BIOTIN ORAL 5,000 mcg, Oral, Daily dicyclomine (BENTYL) 10 MG capsule Take 1 cap Twice a day as needed estradioL (ESTRACE) 2 mg, Oral, Daily fluconazole (DIFLUCAN) 150 mg, Oral, Daily, Take after completion of Augmentin fluticasone propionate (FLONASE) 50 mcg/actuation nasal spray 1 spray, Each Nare, 2 times daily glucosam/chond/hyalu/CF borate (MOVE FREE JOINT HEALTH ORAL) Oral levothyroxine (SYNTHROID, LEVOTHROID) 88 mcg, Oral, Daily lisinopriL (PRINIVIL,ZESTRIL) 40 mg, Oral, Daily predniSONE (DELTASONE) 10 mg, Oral, Daily, In the am with food rimegepant 75 mg, Oral, As needed traZODone (DESYREL) 50 mg, Oral, Nightly PRN ubrogepant (UBRELVY) 100 mg, Oral, Daily PRN, Can take 2nd dose after 2 hours if migraine persists.Max dose 200mg per 24 hours. Objective OBJECTIVE: Physical Examination: BP 126/85 (BP Location: Left arm, Patient Position: Sitting, BP Cuff Size: Adult) Pulse 86 Resp16 Ht 4' 7 Wt 55.3 kg (122 lb) SpO2 98% BMI 28.36 kg/m GENERAL: General Appearance: In NAD Arrived late to appointment. HEENT: Normocephalic. No conjunctival injection. Ears appear normal. No substantial sinus drainage.See below for vision/hearing Neck: Supple, no tenderness, preserved ROM. Respiratory Effort: Normal Extremities: No edema Skin: No rashes visualized MSK: No joint deformities Headache specific exam shows no scalp tenderness. no scalp mass. no areas of tenderness over the mastoid, greater or lesser occipital nerve exit points. no vascular thickening or other mass lesions noted over the temples. TMJ is nontender, and unrestricted. no sinus tenderness noted anywhere. no tenderness over the cervical paraspinal muscles, trapezius muscles, and scapular muscles. no myofascial trigger point tenderness elsewhere. Fundoscopic Exam: Normal; no optic nerve edema or hemorrhages visualized MENTAL STATUS: Alertness, Attention Span & Concentration: Normal Language: Normal Speech: Normal Orientation: Oriented to person, place, time/date, and situation Memory, Recent & Remote: Normal Fund of Knowledge: Normal CRANIAL NERVES: II - Visual Kitchen: Normal II, III: Pupils: PERRL, no RAPD III, IV, : Eye Movements: Normal (EOMI, No ptosis, No nystagmus) V - Facial Sensation: Normal VII: Face Symmetry & Strength: Normal VIII - Hearing: Normal to finger rub b/l IX, X - Palate: Normal, elevates symmetrically XI - Shoulder Shrug: Normal XII - Tongue Protrusion: Normal, symmetric MOTOR: Muscle Strength Right Left 5 Shoulder Abduction (Deltoid) 5 5 Elbow Flexion (Biceps) 5 5 Elbow Extension (Triceps) 5 5 Wrist Flexion 5 5 Wrist Extension 5 5 Finger Abduction (Interossei) 5 Right Left 5 Hip Extension 5 5 Hip Flexion (Iliopsoas) 5 5 Knee Extension (Quads) 5 5 Knee Flexion (Hamstrings) 5 5 Dorsiflexion (Anterior Tibialis) 5 5 Plantar Flexion (Gastrocnemius) 5 Normal Bulk and Tone, no atrophy MOTOR BRADLEY: 5 Normal (Normal Power) 4 Mild Weakness (Movement against moderate resistance over a full range of motion) 3 Moderate Weakness (Movement against gravity only over almost full range of motion) 2 Severe Weakness (Movement with gravity eliminated over almost full range of motion) 1 Trace Movement (Contraction visible or palpable without effective movement of the joint) 0 No Movement (No contraction visible or palpable) BERNABE Unable to Assess SENSATION: Fine Touch: Normal Pinprick: Normal REFLEXES: Right Reflexes Left 2+ Biceps 2+ 2+ Triceps 2+ 2+ Brachioradialis 2+ 2+ Patellar 2+ 2+ Achilles 2+ Down Plantar Response (Babinski) Down REFLEXES BRADLEY: 4+ Sustained Clonus 3+ Brisk 2+ Normal 1+ Diminished 0 Absent BERNABE Unable to Assess COORDINATION: Coordination [id number]: Normal Barboza Finger taps: normal Coordination [id number]: normal Diadochokinesis: normal STANCE AND GAIT: Base/Stance: Normal/ narrow base Gait: Normal with regards to heel strike, stride length, trent, turn, and arm swing Gait Aid Used During Exam: None Gait Assistance Required During Exam: None MOVEMENT DISORDERS EXAMINATION: Tremor - no tremors noted Bradykinesia - None Rigidity - None Dyskinesia/Choreoathetosis - None Dystonia/Myoclonus/Tics - None PRIOR TESTING: Imaging: MRI brain w/ and w/o 08/17/15 was read as normal without any significant FLAIR abnormalities or any other abnormal features. Labs: B12 273, folate 19 A1c 5.7 LDL 115 CMP WNL, CBC with anemia (Hgb 11.4, Hgb 486) VIRGEN 1:160 speckled, RF negative TSH/T4 WNL documented in this [id number] History of Present illness Narrative* Tierney Saleem, SENIOR COMPUTER SPECIALIST - 04/08/2022 10:00 AM EST ENT Clinic Follow up Note History of Present Illness Lima Jordan is a 51 y.o. y/o female presents for ear pain, possible infection. She is a known patient in the clinic who has history of environmental & seasonal allergies. Patient presents today for a new concern. Reports ear pain (worse on the right side), sinus pressure, thick copious sinus drainage, cough, chest congestion & fever since Since Thursday which is progressively worsening. She is fully vaccinated for COVID & took a home COVID test which was negative.She had tonsillectomy performed by Dr Banks 11/13/21 & reports overall allergy symptoms, recurrent tonsil stones, snoring & throat irritation has overall improved until now. She is currently using Flonase daily, & Otc cough medication with minimal relief. 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 She reports a long standing history of left sided tinnitus that is fairly constant & has worsened since her recent ear infection. Allergies Allergen Reactions Bee Venom Protein (Honey Bee) Hives Asa [Aspirin] GI Intolerance Caffeine Other (See Comments) anxiety Ct: Iodinated Contrast- Oral And Iv Dye Hives Morphine Hives Oxycodone-Acetaminophen Stated I can't function Penicillins Hives Red Dye Sulfamethoxazole GI Intolerance GI problems Bactrim Trimethoprim GI Intolerance GI problems Bactrim Past Medical History: Diagnosis Date Anemia Arthritis hips Back pain Endometriosis 1996 Family history of colon cancer GERD (gastroesophageal reflux disease) Hypertension Hypothyroid Low back pain 06/26/2011 Migraine 06/26/2011 Migraines Mixed hyperlipidemia 06/26/2011 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 Peptic ulceration Spina bifida occulta 06/26/2011 Stroke (HCC) 2000 TIA (transient ischemic attack) Vitamin D deficiency 12/21/2013 Social History Socioeconomic History Marital status: Tobacco Use Smoking status: Never Smokeless tobacco: Never Vaping Use Vaping Use: Some days Substance and Sexual Activity Alcohol use: Not Currently Comment: SOCIALLY - once everyy 3 to 4 months Drug use: No Sexual activity: Yes Partners: Male Social Determinants of Health Financial Resource Strain: Medium Risk Difficulty of Paying Living Expenses: Somewhat hard Food Insecurity: No Food Insecurity Worried About Running Out of Food in the Last Year: Never true Ran Out of Food in the Last Year: Never true Transportation Needs: No Transportation Needs Lack of Transportation (Medical): No Lack of Transportation (Non-Medical): No Social Connections: Unknown Frequency of Social Gatherings with Friends and Family: Three times a week Family History Problem Relation Age of Onset Heart disease Mother Hypertension Mother Heart attack Mother Stroke Mother Hypertension Father Heart disease Father Diabetes Father Stroke Father Parkinson's Brother Alcohol abuse Brother Colon cancer Maternal Grandmother COPD Paternal Grandmother COPD Paternal Grandfather Past Surgical History: Procedure Laterality Date CARPAL TUNNEL RELEASE Right 11/2011 SECTION x 2 - 1991 - 1994 CHOLECYSTECTOMY 04/2017 COLONOSCOPY 2017 COLONOSCOPY N/A 07/22/2021 Procedure: COLONOSCOPY WITH BIOPSY; Surgeon: Negro Landrum MD; Location: [facility] [place]; Service: Gastroenterology CYST REMOVAL 09/2016 back EGD N/A 07/22/2021 Procedure: ESOPHAGOGASTRODUODENOSCOPY WITH BIOPSY; Surgeon: Negro Landrum MD; Location: [facility] [place]; Service: Gastroenterology HYSTERECTOMY REDUCTION MAMMAPLASTY Bilateral 02/2020 TONSILLECTOMY Bilateral 11/13/2020 Procedure: TONSILLECTOMY; Surgeon: David Hawthorne MD; Location: [facility]; Service: Otolaryngology TONSILLECTOMY The following systems were reviewed and revealed the following in addition to any already discussedin the HPI: Review of Systems Constitutional: Positive for fever (101.0) and malaise/fatigue. Negative for chills. HENT: Positive for congestion, ear pain (right worse than left), hearing loss (decreased hearing bilaterally, worse on the right side, feels under water, like her ear needs to pop), sore throat and tinnitus (primarily on the left side ). Negative for ear discharge ( ) and nosebleeds. Eyes: Negative for discharge, pain, photophobia and redness. Cardiovascular: Negative for chest pain, leg swelling, near-syncope and syncope. Respiratory: Negative for cough, shortness of breath, sleep disturbances due to breathing and snoring. Endocrine: Negative for cold intolerance and heat intolerance. Hypothyroidism Hematologic/Lymphatic: Negative for adenopathy and bleeding problem. Does not bruise/bleed easily. Skin: Negative for color change, dry skin, itching and rash. Musculoskeletal: Positive for arthritis, back pain, joint pain (hips) and stiffness. Negative for falls, joint swelling, muscle cramps and muscle weakness. Gastrointestinal: Negative for nausea and vomiting. Neurological: Positive for headaches. Negative for dizziness, light-headedness, loss of balance, numbness, seizures, tremors, vertigo and weakness. Hx of TIA, hx of spina bifida Psychiatric/Behavioral: Negative for altered mental status and substance abuse. The patient is not nervous/anxious. Allergic/Immunologic: Positive for environmental allergies (worse in the spring usually takes Dominga & Flonase as needed,). Negative for persistent infections ( ). Physical Exam Vitals: 04/08/22 0938 BP: 118/81 BP Location: Left arm Patient Position: Sitting BP Cuff Size: Adult Pulse: 95 SpO2: 98% Weight: 56.7 kg (125 lb) Height: 4' 7 Physical Exam Constitutional: General: She is not in acute distress. Appearance: Normal appearance. She is well-groomed. She is not diaphoretic. HENT: Head: Normocephalic and atraumatic. Right Ear: Ear canal and external ear normal. Decreased hearing noted. Tenderness present. No drainage or swelling. A middle ear effusion is present. No foreign body. No mastoid tenderness. Tympanic membrane is erythematous. Tympanic membrane has decreased mobility. Left Ear: Ear canal and external ear normal. Decreased hearing noted. Tenderness present. No drainage or swelling. A middle ear effusion is present. No foreign body. No mastoid tenderness. Tympanic membrane is erythematous. Tympanic membrane has decreased mobility. Nose: Mucosal edema, congestion and rhinorrhea present. No nasal deformity, septal deviation or laceration. Rhinorrhea is clear. Right Turbinates: Enlarged and swollen. Left Turbinates: Enlarged and swollen. Right Sinus: Maxillary sinus tenderness present. No frontal sinus tenderness. Left Sinus: Maxillary sinus tenderness present. No frontal sinus tenderness. Mouth/Throat: Lips: [place]. Mouth: Mucous membranes are moist. Pharynx: Oropharynx is clear. Uvula midline. Posterior oropharyngeal erythema (mild) present. No pharyngeal swelling or oropharyngeal exudate. Tonsils: 3+ on the right. 2+ on the left. Eyes: General: Right eye: No discharge. Left eye: No discharge. Neck: Thyroid: No thyroid mass or thyromegaly. Trachea: Trachea normal. No tracheal deviation. Musculoskeletal: Cervical back: Neck supple. Lymphadenopathy: Head: Right side of head: No submental or submandibular adenopathy. Left side of head: No submental or submandibular adenopathy. Cervical: No cervical adenopathy. Skin: General: Skin is warm and dry. Neurological: Mental Status: She is alert and oriented to person, place, and time. Gait: Gait is intact. Psychiatric: Mood and Affect: Affect normal. Assessment and Plan: Lima Jordan is a 51 y.o. y/o female who presents ear pain, possible infection. Subjective history & physical exam are consistent with acute sinusitis, cough & congestion of the paranasal sinuses & otalgia. Patient will be treated with Augmentin twice daily for 10 days, prednisone once daily for 10 days & will also be given Diflucan for history of antibiotic induced yeast infections. She has taken Augmentin as an adult in the past 2 years without any problems& reports the documented allergy to PCN with a rash was from childhood. Continue Flonase as needed. She may use OTC nasal saline spray or irrigations as needed to help with moisture & to flush out the sinuses. Patient was offered a follow up but wishes to follow up as needed due to her schedule. Patient's wishes were respected. Follow up as needed for any related or non related problems or concerns. Patient verbalized understanding & is in agreement with the plan of care. Diagnoses and all orders for this visit: Acute maxillary sinusitis, recurrence not specified - amoxicillin-clavulanate (AUGMENTIN) 875-125 mg per tablet; Take 1 (one) tablet by mouth 2 (two) times a day for 10 days . Cough with congestion of paranasal sinus - predniSONE (DELTASONE) 10 MG tablet; Take 1 (one) tablet (10 mg total) by mouth daily In the am with food for 10 days . Antibiotic-induced yeast infection - fluconazole (DIFLUCAN) 150 MG tablet; Take 1 (one) tablet (150 mg total) by mouth daily Take after completion of Augmentin for 2 doses . History of tonsillectomy Otalgia of both ears Tierney Saleem CNP documented in this [id number] Telephone encounter Note* Telephone Encounter - Violeta Raman MA - 03/17/2022 11:32 AM EST Patient is requesting refills of Estrace and Norvasc Last office visit 10/14/21 Next office visit 05/15/22 [id number] Miscellaneous Notes* Telephone Encounter - Violeta Raman MA - 03/17/2022 11:32 AM EST Patient is requesting refills of Estrace and Norvasc Last office visit 10/14/21 Next office visit 05/15/22 * Telephone Encounter - Violeta Raman MA - 03/17/2022 11:31 AM EST ----- Message from Theresa Esquivel sent at 03/17/2022 11:27 AM EST ----- Regarding: New RX order for refills Contact: Lima MEDICATION REFILL REQUEST: PCP: Aury Mera MD Patient called 03/17/22 and is requesting a medication refill for estradioL (ESTRACE) 2 MG [id number]/2021 Sig - Route: Take 1 (one) tablet (2 mg total) by mouth daily . - Oral Patient not taking: Reported on 10/14/2021 . Sent to pharmacy as: estradioL 2 mg tablet (ESTRACE) E-Prescribing Status: Receipt confirmed by pharmacy (09/26/2019 8:46 AM EDT) amLODIPine (NORVASC) 10 MG [id number] Sig - Route: Take 1 (one) tablet (10 mg total) by mouth daily . - Oral Sent to pharmacy as: amLODIPine 10 mg tablet (NORVASC) E-Prescribing Status: Receipt confirmed by pharmacy (01/16/2022 4:39 PM EST) . This was confirmed from the current medication list found in the patients chart. Supply Requested: # of days: 90 days Method of receiving: Send to pharmacy Last set of flowsheet rows for OARRS report: OARRS/NARxCHECK Report Received and Assessed: 11/20/2020 Date controlled substance agreement signed: No data found Date of last drug screen: No data found Functional Assessment: No data found Will this refill be sent to the preferred pharmacy listed below? Yes Preferred pharmacies: [id number] [place] [id number] [id number] Pt Call Back Number Patient call back message sent to the primary care clinical pool. Theresa Esquivel documented in this [id number] Telephone encounter Note* Telephone Encounter - Violeta Raman MA - 03/17/2022 11:31 AM EST ----- Message from Theresa Esquivel sent at 03/17/2022 11:27 AM EST ----- Regarding: New RX order for refills Contact: Lima MEDICATION REFILL REQUEST: PCP: Aury Mera MD Patient called 03/17/22 and is requesting a medication refill for estradioL (ESTRACE) 2 MG [id number]/09/2021 Sig - Route: Take 1 (one) tablet (2 mg total) by mouth daily . - Oral Patient not taking: Reported on 10/14/2021 . Sent to pharmacy as: estradioL 2 mg tablet (ESTRACE) E-Prescribing Status: Receipt confirmed by pharmacy (09/26/2019 8:46 AM EDT) amLODIPine (NORVASC) 10 MG [id number] Sig - Route: Take 1 (one) tablet (10 mg total) by mouth daily . - Oral Sent to pharmacy as: amLODIPine 10 mg tablet (NORVASC) E-Prescribing Status: Receipt confirmed by pharmacy (01/16/2022 4:39 PM EST) . This was confirmed from the current medication list found in the patients chart. Supply Requested: # of days: 90 days Method of receiving: Send to pharmacy Last set of flowsheet rows for OARRS report: OARRS/NARxCHECK Report Received and Assessed: 11/20/2020 Date controlled substance agreement signed: No data found Date of last drug screen: No data found Functional Assessment: No data found Will this refill be sent to the preferred pharmacy listed below? Yes Preferred pharmacies: [id number] [place] [id number] [phone] Pt Call Back Number Patient call back message sent to the primary care clinical pool. Theresa Esquivel [id number] Instructions* Patient Instructions* Hugh Calles MD - 10/14/2021 8:42 AM EDT Ms. Jordan, We are seeing you today for your diagnosis of migraines. See below for your treatment plan. If you have any questions, please do not hesitate to call. Acute Headache Treatment: 1) Ubrelvy (ubrogepant) 100mg tabs at earliest sign of migraine. May repeat once in 2 hours. 2) OK to mix with OTC meds like ibuprofen or acetaminophen if desired - With the exception of newer agents such as Ubrelvy and Nurtec, you should limit all abortives including over the counter medications and triptans/ergots to 10 days/month of use or less. Headache Preventive Treatment: *Please keep in mind that it takes 4-6 weeks for the medication to start working well and 2-3 months at the appropriate dose before deciding if it will be useful or not. If it is not helping at all by this time, then we will discuss other medications to try. Supplements may take 3-6 months until you see full effect. 1) switch amitriptyline to nortriptyline 75mg nightly. Adjust strength as tolerated. Consider adding supplements: Riboflavin (Vitamin B2) 400 mg daily (or 200 mg twice daily) +/- Magnesium citrate or oxide 400-600 mg daily with food +/- Coenzyme Q10 400 mg daily . You can sometimes buy supplements cheaper (especially Coenzyme Q10) at www.[employer] or at [employer]. Emely has all of these vitamins plus butterbur, a root from [place] that has been shown to be effective for migraine prevention. Migravent is about $38 for a month's supply, found at [employer] and [employer]. Below is an educational handout with some helpful material about migraines for you to review. It was a pleasure taking care of you, and we all wish you the best of health. For concerns regarding medicines, adjusting doses or other questions: Call : [phone] (for Neurology / Dr. Calles) - leave a message if no one is available. [employer] Shellie - the best way to send messages directly to your doctors, or request Drug Refills. Call [phone] to set up [employer] on your smart phone or computer. Mailing Address: Attn: Dr. Hugh Calles [address] [place] [address]# [phone], [facility] [id number] Our Migraine Headaches In Adults: Information for Patients Overview: Migraines are a specific type of headache syndrome which are one of the most common neurologic conditions. Approximately 18% of women and 6% of men in the [place] have experienced at least one migraine in the past year. They tend to start at a young age, often before age 18, and have a strongtendency to run in families, though they do not always. While migraine is a specific condition thatdoes not require any specific inciting factor, it can sometimes occur after head injuries or trauma. Migraines are more than just a severe headache. It is a constellation of neurologic symptoms with very specific diagnostic features. There are many other types of headache, some of which are as or even more severe. Migraines are a specific phenomenon that often is treated differently from these other headache types. It is possible (and not uncommon) to have both migraines and non-migraine headaches. The causes of migraines are still not understood. The current state of research suggests that some underlying abnormality in the neurons of the brain - possibly related to electrolyte channels - leads to a sequence of cascading changes in both the brain and the nerves outside it. Some trigger causes the cells to become more sensitive and eventually form a self-sustaining wave of activation spreading across the brain. This phenomenon is referred to as cortical spreading depression. It is thought that during this period, parts of the brain responsible for sensing pain in the head become overactive. They release inflammatory molecules and neurotransmitters which can prolong and worsen the headache period. One molecule recently linked to migraines is called CGRP. It is released during migraines and infusions of it are enough to trigger a migraine by itself. The exact function in normal brains is not yet established. However, new medications have been released that target this molecule specifically, and have show a great deal of promise in treating migraines. At one time, a popular theory involved the widespread dilation (widening) of blood vessels during headaches as the cause of pain. Although you may still hear this belief from certain sources, it is largely disproved and if there is any change in the blood vessels during migraines it is likely just a byproduct rather than a source of the problem. Some types of migraine can be associated with a higher risk of stroke. It is not yet well known whythis is the case. It is presumed that treatment of the migraines reduces this risk, although this is not yet known for certain. Typical Signs and Symptoms: A typical migraine involves four phases: the prodrome, the aura, the headache (which may be accompanied by other symptoms), and the postdrome. The exact progression and symptoms differ from person toperson. You may experience some but not all of these phases over different episodes. Although migraine is commonly used to refer to just the headache portion, it actually involves all of these different phenomenon. In some cases, you can experience a migraine without any headache at all! Prodrome (sometimes referred to as the premonitory phase) - Many people start having symptoms 24 to48 hours before a migraine headache comes on. These may include increased yawning, a feeling of euphoria, depression, irritability, food cravings, constipation, and neck stiffness. Oftentimes this phase is not noticed by patients until they specifically look for it, as it occurs before the much more obvious headache portion. Aura - About 25 percent of people with migraines experience an aura before the headache. Aura symptoms may include visual changes such as flashing lights or bright spots, zigzag lines, ringing in the ears, or numbness or tingling in the fingers of one hand, lips, tongue, or lower face. Some patients have reported other unusual sensations such as lightheadedness, anxiety, out of body experiences, or an unusual sensation in the stomach. You may have one or more of these aura symptoms, or none at all. Auras may also involve other senses and can occasionally cause temporary muscle weakness or changesin speech; these symptoms can be frightening and look very similar to a stroke. This can be very difficult to distinguish from a stroke without a thorough neurological evaluation and if you experience these you should seek medical attention immediately. Aura symptoms typically last five to 20 minutes and rarely last more than 60 minutes. The headache typically occurs soon after the aura stops, although some people experience aura without a headache.Muscle-related auras may last longer. Headache - The pain of a migraine headache usually begins gradually, intensifies over one to several hours, and resolves gradually at the end of the attack. It frequently affects only one side of thehead. The headache is typically dull, and steady when mild to moderate in severity; it becomes throbbing or pulsatile when more severe. Migraine headaches may be aggravated by light, sneezing, straining, constant motion, moving the head rapidly, or physical activity. Many people try to get relief by lying down in a darkened, quiet room. In adults, a migraine headache usually lasts a few hours, although it can last from 4 to 72 hours. Other symptoms - Migraine headaches are often accompanied by nausea and vomiting, as well as sensitivity to light and noise. Some people also feel very sensitive to touch, and may find normal activities (such as brushing the hair, shaving, or putting in contact lenses) painful. Postdrome - Oftentimes after a migraine headache has stopped there is a period of time before returning to normal. Sometimes referred to as a migraine hangover, this period is marked by symptoms such as fatigue, difficulty concentrating (or brain fog), changes in appetite, or persistent sensitivity of the skin, particularly in the affected areas of the head. It tends to gradually recede over the course of a few hours but can last up to 48 hours in some patients. Diagnosis: Diagnosing migraines is done by your physician. It can be made by any physician, but migraines thatare abnormal or difficult to treat are often managed by neurologists. It can be done solely based on the history and description of the headaches only - there is no imaging study or lab test that candefinitively diagnose migraines. Sometimes testing may be done to rule out other causes of headachewhich can sometimes mimic migraine. This is especially true when there are features of more seriousheadaches: A change in the pattern of headache (such as a sudden increase in attack frequency or severity) or onset of a very different kind of headache can be a sign of a more serious underlying condition. Other red flags include headaches that occur with infection (which may be accompanied by fever, chills, night sweats, or muscle pain) or new/different headaches that develop in the setting of cancer, weight loss, or . Other concerning symptoms include headaches associated with confusion, double vision, ringing in the ears, a stiff neck, or weakness on one side of the body. If you have any of these red flags, tell your health care provider right away, as they may be a sign of a more serious underlying condition. Managing Migraines: Migraines can be disabling and severely disruptive to normal daily life. If you're here with us today, you probably would like to reduce the frequency and severity of your migraines. There are a widevariety of strategies to help. Avoiding triggers: Part of migraine involves avoiding known triggers. You should make and maintain a headache diary, in which you should note down when your migraine happens and any changes to your normal routine. I put an example below but do not feel that this is a required template. For a slightly more convenient way of keeping track, there are several free smart phone apps that you can use, such as Migraine Enrrique. There is no specific one that is best, just however you feel is easiest to use. Things to document Did you take a painkiller? Did you take your migraine rescue medication (Imitrex, Ubrelvy etc.)? Did you miss school or work? Did you skip chores/errands at home? Any new or different symptoms with the headache? How did you feel before the pain started? Anything out of the ordinary? What did you eat at your last meal before the migraine started? How well did you sleep last night? How long did the pain last? Answer Time/date Common triggers include sleep deprivation, dehydration, and certain processed foods or dietary supplements. These are highly individual, but here is a list of some common ones that you should think about. They include many very popular (and delicious) food groups. The point is not to avoid them allpermanently, but rather to start tracking your intake and trying to remove them one at a time to see if that improves the headaches. Over time as you establish your particular triggers, you will knowwhich foods are OK for you and which are best avoided. Caffeine such as coffee, chocolate (especially dark chocolate), tea, cola/pop/soda (7-up, Sprite, Dalila Mist, Sara Odilia, Mug/A+W Root Beer, Minute Maid Callahan, Slice are okay). Some daily caffeine is ok as long as you keep it consistent. Large fluctuations in caffeine use can worsen headaches. Also caffeine, while generally safe, is an addictive substance that can create dependency when taken regularly. One of the major symptoms of caffeine withdrawal is headaches, so people prone to headaches should use caution Foods containing nitrates (processed meats like deli meat, ham, ramos, sausage, hot dogs) Alcohol (tanya containing sulfites are big culprits) Tyramine (aged cheese; some cheeses that are safe are [place] cheese, cottage cheese, Velveeta andfresh mozzarella. Most pizza uses aged mozzarella) MSG ([place]aced[place]/ foods, Doritos, all flavored chips and Ramen noodles) Nutrasweet and artificial sweeteners Note that over time you can gradually re-introduce these to your diet once we have established yourspecific triggering agents. Behavioral modifications Part of reducing migraines involves maintaining a healthy lifestyle, to help your brain work at itsbest. This is much easier said than done, we know! But if you can stick with it, these changes havebeen shown to reduce headache frequently, often as much as medication therapy alone. Maintain good sleep hygiene. The average person needs 7-8 hours of sleep nightly. You may be able to function at lower levels, but that doesn't mean it is healthy! Sleep is a skill that takes practice. You should go to bed and wake up at the same time each day (staying up extra late on weekends is fun, but can seriously impact your body's sleep cycle). Avoid staring at your phones and screens late in the night, using caffeine after 3PM, and exercising or eating less than 2 hours before bedtime.Avoid laying in bed for long periods - if unable to fall asleep within 30 minutes, it is best to sit or rest elsewhere until tired. This helps train your brain to associate your bed with sleep, rather than wakefulness and anxiety. Reading, listening to music, drawing or writing, or doing puzzles are all activities that you can do that will help your brain enter into a relaxed state. Exercise: Aerobic exercises (brisk walking, jogging) at least 20 to 30 minutes a day for about 3 to4 days a week (150 minutes total per week) is highly recommended for relieving headaches. It will not cause long-term harm to exercise during a migraine, although frequently it will make the pain worse so it is generally best done at other times. It doesn't matter what you do, as long as it gets you moving. As a general rule, you want to work hard enough that holding a conversation is difficult, but you are still able to speak. Don't skip meals. Eating at irregular intervals can affect a number of hormones in the body which can contribute to migraines. Minimize stress. Modern life tends to invoke a chronic, low level of stress in all of us. Chronic stress creates an inflammatory state in the body which causes many problems, migraines being just oneexample. Everyone relaxes a little differently but techniques such as mindfulness, meditation, biofeedback, massage therapy, yoga, and nature walks can all help reduce stress, even after as little as20 minutes. I encourage you to try out different things to see which one is right for you. Some of my patients have recommended to me the Calm or Headspace apps, which are guided meditation apps you can use with your smartphone. Stay Hydrated: Dehydration is one of the most common triggers of migraines. Everyone's requirement is different but you should be drinking at least 4 glasses of water daily even if completely inactive. You should add more when exercising or working in warm areas. While technically possible to drinktoo much water, this is wildly unlikely for a normal person and so it is better to err on the side of more hydration rather than less. Remember that the best hydration comes from water. Gatorade or similar sport drinks are OK, but contain electrolytes and sugars. They are better used for after sweating rather than as a regular day to day hydration method. Pop/soda/cola also has electrolytes, sugars, and caffeine which all reduce the effectiveness of rehydration. Alcohol will generally make you less hydrated, rather than less, sopair it with plenty of water if you are drinking. Minimize Mobile / Computer Screen-time: Take breaks every 20-30 mins if you spend time looking at screens all day long. Low contrast and low brightness settings recommended. Although there is no specific study recommending blue- light filtered glasses, some patients feel that these help reduce migraines when they are required to work on computers for long periods. Avoid Bright lights: Use dark shades to protect your eyes in the deni weather (spring and summer particularly). Maintain normal schedule: Migraines of course make it difficult to carry out our normal everyday functions. However, as much as possible, it is important to try to attend work and/or school even witha headache. Missing work and school does not help improve headaches, and the disruption in daily routines can cause stress which can worsen headaches. Medication for migraines Oftentimes, the above strategies simply are not enough to give us complete control over migraines. When this happens, medications are needed. Broadly, there are two kinds of medicine used - medication taken as needed when you have a migraine to try to stop it, and medication that is used regularly to prevent migraines. There are too many prescription medications used for migraines to list here, so we should discuss these medicines during your appointment. If you have specific questions, or hearof a particular medicine and would like to learn more, please let me know and we will talk about it. However, below is a list of dietary supplements and vitamins which have been shown to help. These are generally safe and well tolerated and can be used instead of or in addition to medication therapy. I am happy to write prescriptions for these, but they can also be picked up over the counter and are generally inexpensive. Vitamins and herbs that show potential for migraine prevention: Magnesium: Magnesium oxide or citrate (400-600 mg daily with food) has a relaxant effect on smooth muscles such as blood vessels. We often give intravenous magnesium to patients who come into the emergency department for migraine because it helps to break the migraine. Three trials found 40-90% aver age headache reduction when used as a preventative. Magnesium also demonstrated the benefit in menstrually related migraine. Magnesium is part of the messenger system in the serotonin cascade and it is a good muscle relaxant. It is also useful for constipation which can be a side effect of other medications used to treat migraine. Good sources include nuts, whole grains, and tomatoes. There is controversy over whether this is safe in , although it has been used safely in oral form for decades in . Coenzyme Q10: This is present in almost all cells in the body and is critical component for the conversion of energy. Recent studies have shown that a nutritional supplement of CoQ10 can reduce the frequency of migraine attacks by improving the energy production of cells as with riboflavin. Doses of 300-400 mg daily have been shown to be effective. This medication is NOT safe if you are taking warfarin (Coumadin). There is uncertain safety in . Riboflavin (Vitamin B2): 400 mg daily. This vitamin assists nerve cells in the production of ATP, aprincipal energy storing molecule. It is necessary for many chemical reactions in the body. There has been a randomized, placebo-controlled clinical trial using 400 mg per day which suggested that migraine frequency can be decreased. The supplement is found in bread, cereal, milk, meat, and poultry. Most Americans get more riboflavin than the recommended daily allowance, however riboflavin deficiency is not necessary for the supplements to help prevent headache. This supplement is safe in . Feverfew: Feverfew is a common garden herb [place] and popular in [place] as a treatment for disorders typically controlled by aspirin. The mechanism of action is unknown but is believed to be related to a chemical called parthenolide which helps the body use serotonin more effectively. Serotonin helps prevent migraine and assists with resolution when it occurs. Parthenolide also inhibits the release of histamine which is linked to pain and inflammation. Consistency of active ingredients in different products can be a problem so you may want to research ahead of time for reputable supplement manufacturers. Typical dosage is one capsule (6.25 mg) 3 times a day. This supplementis not recommended in . Butterbur: This is an extract derived from the petisides hybridus root, which has been used for medicinal purposes since ancient times. A recent study found that 75 mg twice daily reduced headache frequency versus placebo. Side effects were infrequent, and the most common and unusual includes burping/belching. Raw giovany root contains toxic chemicals that must be filtered out during the manufacturing process. To be sure you are choosing a safe product, look for a formulation that does not contain pyrrolizidine alkaloids which are toxic to the liver. This is not safe in . Melatonin: Increasing evidence shows correlation between melatonin secretion and headache conditions. Melatonin supplementation has shown decreased headache intensity and duration. It is widely used as a sleep aid. Sleep is nature's way of dealing with migraine. A dose of 3 mg is recommended to start for headaches including migraine and cluster headache. Higher doses up to 15 mg has been reviewedfor use in Cluster headache and have been used. The rationale behind using melatonin for cluster isthat many theories regarding the cause of Cluster headache center around the disruption of the normal circadian rhythm in the brain. This helps restore the normal circadian rhythm. It should be takenat least 2 hours before bedtime. Sara: Sara has a small amount of anti-histamine and anti-inflammatory action which may help headache, although randomized controlled evidence is lacking. It is primarily used for nausea and may aid in the absorption of other medications. Essential Oils: Lavender and Peppermint can be helpful Vitamin D: I encourage patients who live in the [place] or places without much sun to take 9431-9184 units per day in the winter months. You may need more than this and I encourage you to have your primary care physician check levels periodically. There have been two randomized, controlled clinicaltrials showing benefit for vitamin D supplementation in migraine. Marijuana/CBD: Medical marijuana and CBD oil have anecdotal evidence in migraine. Unfortunately, the federal government makes it difficult to study this medication so there are not large, randomized,controlled clinical trials for this yet. Without medical evidence I cannot make an educated recommendation for you to take it. I do not prescribe (have a license to recommend) at this time but you can go to https://med.[place].gov/Publications/[place] to get a list of providers who do have a licenseto recommend. I am happy to provide you with a referral to the provider of your choice if needed. Non-pharmacologic treatments Sometimes, whether by personal choice or from our medical history, we want to avoid taking medications unless absolutely necessary. In these instances, there are some treatments that are available for those who suffer from migraines. Nerve blocks: In some specific cases, we may be able to offer an injection of local anesthetic agent in a specific nerve which can help reduce headaches. This does not involve any systemic medicationand so it is generally very safe and side-effect free compared to medication therapy. Nerve stimulator devices: There is some evidence for peripheral nerve stimulators (neurostimulators), which work by sending signals from nerves of the head, neck, or even arm to the brain to interfere with migraine pain signalling pathways. These devices are FDA cleared for use in migraines, although they do not have the robust data often used with medication therapy. All but one currently require a prescription. They are generally not covered by insurance, so they have to be paid for out of pocket. They are generally not available for use in patients with significant heart disease, seizures,or prior strokes/brain bleeds. Cefaly device: an external trigeminal nerve stimulator which is a small device stuck to the forehead via an electrode to stimulate branches of the trigeminal nerve. It is cleared for use in both prevention and acute treatment of migraines. It is available without a prescription from their website, [employer]. It was generally very well tolerated in the studies, without major side effects. gammaCore: an external stimulator of the vagal nerve in the neck. It is a device about the size of a deck of cards which is held to the neck for the duration of the treatment. It is cleared for migraines and cluster headaches. It requires a prescription which is sent in by the physician to the company website. It is associated with temporary side effects including dizziness, tingling/discomfort at the stimulation site, nausea, and cough. Nerivio: a device worn on the arm which acts as a remote electrical neuromodulator. It is worn on the upper arm and controlled via a smartphone shellie. eNeura: a single-pulse transcranial magnetic stimulator which works by sending a magnetic pulse into the brain to break the depolarization cycle of migraines. It is a rectangular device held to the back of the head briefly. It has had some side effects including ringing in the ears, lightheadedness, and confusion which were all temporary. Physical Therapy: Some patients have co-occurring neck pain which contributes to migraines by causing muscle tension in the head and neck musculature. Certain physical therapy exercises can often help relieve this tension over time and reduce the frequency of migraines Cognitive Behavioral Therapy: Oftentimes those with chronic migraines (or other pain disorders) develop a progression over time as their body begins to reinforce the pain pathways that are active during migraine. Cognitive Behavioral Therapy, or CBT, is a form of therapy designed to retrain the brain in order to stop it from prioritizing the pain pathways and instead focus on restoring normal ones. I often compare it to physical therapy, but for the brain - if you had a leg injury and started walking with a limp, sometimes you need physical therapy to retrain your leg to walk normally. This is essentially what we are trying to do, but with the brain. It is as effective as medication therapyfor migraines. Massage Therapy, acupuncture, chiropractors: All of these are frequently attempted by patients who want to avoid traditional medication-based treatment. They do not have robust evidence in favor of treatment of migraines. That said, I often encourage anyone interested to try, as they are generally safe, side- effect free, and may help improve quality of life. What do do when you get a migraine: It can take some time to achieve complete resolution of migraines, even with medication. Therefore it is important to have a plan for when you do get one. Initiate non-pharmacologic measures at the earliest onset of your headache. Rest and quiet in a cool, dark environment. Relax and reduce stress. Though difficult, try not to become anxious about the migraine. Try putting a cold compress to the typically affected area of the head (place a dry washcloth to forehead, cover with a blue freezer packet or unwanted frozen food, and use a headband to press the freezer packet across the forehead and temples). 2. Don't wait!! Take the maximum allowable dosage of prescribed medication at the very earliest sign of headache. Medication Overuse Headaches Through a mechanism that is not completely understood, using pain medications frequently tends to worsen headaches and convert episodic (occasional) migraines into chronic daily headaches. This phenomenon, sometimes called rebound headaches, is more likely in certain pain medications than others. While it feels unfair to have to limit the medications that can help with our headaches, having migraines AND medication overuse headaches is a very difficult problem to fix and often involves a painful washout period of cutting out the pain medications completely. Based on current research, the types of medications and their frequency of use which converts a previously episodic headache (particularly migraine) into a chronic daily headache (any headache occurring 15 or more days per month for at least 4 hours per day) are as follows: Over the counter medications, NSAIDS and combination analgesics: -More than 2 days per week, or more than 10 days per month. -These include medications such as Acetaminophen (Tylenol), Naproxen (Aleve), Ibuprofen (Advil, Motrin), Acetaminophen/Caffeine (Excedrin), Acetaminophen/Dichloralphenazone/Isometheptene (Midrin), Aspirin (ok to continue if taking for medical reasons), cold remedies and sleep-promoting agents, among others. Triptans: -More than 2 days per week, or more than 10 days per month. -These include Sumatriptan (Imitrex), Sumatriptan/Naproxen (Treximet), Rizatriptan (Maxalt), Almotriptan (Axert), Zolmitriptan (Zomig), Eletriptan (Relpax), Naratriptan (Amerge), Frovatriptan (Frova). Opiates/Opioids (Narcotics): -10 days or more per month. Some research suggests that even infrequent use of these medications makes migraine specific medications such as triptans and NSAIDs less effective. -These include any narcotics such as Acetaminophen/Hydrocodone (Vicodin), Acetaminophen/Oxycodone (Percocet), Acetaminophen/Propoxyhene (Darvocet), Acetaminophen/Codeine (Tylenol #3, #4), Tramadol (Ultram), Acetaminophen/Tramadol (Ultracet), Oxycodone (OxyContin), Hydromorphone (Dilaudid), Fentanyl, Butorphanol (Stadol), Morphine or any form of a Morphine derivative. The [place] [employer] does not recommend use of opiates for management of headache syndromes and following these guidelines, they are not prescribed for headache syndromes by this practice. Butalbital containing medications: -10 or more days per month, sometimes as low as 6. These are typically the worst offenders. I avoidusing these medications unless there is no other option, because I have seen many long-term bad outcomes as a result. -These include Acetaminophen/Butalbital/Caffeine (Fioricet, Esgic) Acetaminophen/Butalbital/Caffeine/Codeine (Fioricet with Codeine), Aspirin/Butalbital/Caffeine (Fiorinal), Aspirin/Butalbital/Caffeine/Codeine (Fiorinal with Codeine). For More Information: If you would like further information, you can visit the websites of the [place] [employer] ([email or web address]on.[email or web address]), the [place] [employer] Society ([email or web address].[email or web address]). There are many sites available out there but not all of them are fully reputable so be cautious where you obtain your information. documented in this [id number] History of Present illness Narrative* Hugh Calles MD - 10/14/2021 8:00 AM EDT Neurology New Consult Note [facility] Date of Service: 10/14/21 Service Type: New Patient consultation Patient: Lima Jordan Date of : 1970 (50 y.o.) Referring Provider: Refer to consult order in electronic medical record PCP: Aury Mera MD ASSESSMENT: Lima Jordan is a 50 y.o. woman who presents for migraines Ms. Jordan presents for evaluation and management of headaches. They meet ICHD-3 criteria for migraine with aura, based on the presence of at least 5 attacks meeting the following: unilateral location, throbbing/pulsating quality, moderate or severe pain intensity, and worsening or causing avoidanceof physical activity, headache duration of between 4-72 hours, and nausea and/or vomiting and photophobia and phonophobia. It is considered episodic given the frequency of 2 headache days per month, of which all are migrainous. It is not intractable. Based on the history and physical exam obtained today, further imaging of the brain is not indicated. She had an MRI of the brain in 2016. She told me that she was told to have mini strokes which could have been white matter lesions, although the report denies any FLAIR abnormalities so I am unsure what this refers to exactly. For acute treatment, she failed Imitrex, Zomig, Maxalt, ibuprofen, acetaminophen, Excedrin, and Aleve. Tramadol worked in the past. Occipital nerve block worked once but failed a second time. Given multiple triptan failures as well as failure of all standard OTC measures, will try newer CGRP antagonist agent, such as Ubrelvy. For preventive treatment, amitriptyline 75mg nightly causes significant drowsiness but has effectively cut the frequency down to only 2 per month. Failed other trials of duloxetine and lisinopril up to 40mg daily. Given the effectiveness but side effects, I think it worth trying to switch over to no rtriptyline, which sometimes has less drowsiness. Headache education was done. Discussed lifestyle modification including increased oral hydration, decreased caffeine, exercise, and stress management. Discussed treatment options including preventiveand acute medications, natural supplements, and infusion therapy. Discussed medication overuse headache and to limit use of acute treatments (when applicable) to no more than 2 days/week or 10 days/month. Discussed medication side effects, adverse reactions and drug interactions. Discussed the safety implications of the prescribed medications with and breast feeding, if applicable. Written educational materials and patient instructions outlining all of the above were given. Problems addressed in this visit: 1. Migraine with aura and without status migrainosus, not intractable PLAN: Medication changes: switch amitriptyline to nortriptyline 75mg nightly. For rescue, use Ubrelvy, 100mg tabs. Take one dose at migraine onset. Take a second dose 2 hours later if no improvement in symptoms. Labs: none Imaging: none Other: none Follow Up: 6 months Attestation: Discussed risks, benefits and alternatives regarding treatment options, and diagnoses with Ms. Jordan. Answered questions and we discussed plan at length. I independently reviewed past history, previous clinic notes, lab results, allergies, medications and radiology images which are summarized in this note with annotations wherever appropriate. Time statement: A total of 61 minutes were spent on this encounter. This includes the following patient-centered activities: 1. Preparation for patient's visit (reviewing previous chart, current medical records, previous history, exam, test, procedure, and medications) 2. Face to face encounter obtaining history from the patient/family/caregivers; performing evaluation and examination; ordering medications, tests, or procedures; referring and communicating with other healthcare professionals; counseling and education of the patient/family/caregiver; independently interpreting results (tests, labs, procedures, imaging) and communicating and explaining results tothe patient/family/caregiver 3. Coordination of care; preparing and printing discharge instruction and any educational material for the patient and caregivers. Documenting clinical information in the electronic and other health records. Reviewing OARRS as needed. Hugh Calles MD Staff Neurologist [facility] [address] [id number], [facility] [address] [facility] Fax: [phone] 10/14/21 Subjective Chief Complaint/Reason for Consult: migraines Informant(s): self History of Present Illness: Lima Jordan is a 50 y.o. woman who reports a pertinent history of migraines, who presentsto the office today for migraines. Headache history review Onset/history: Age 21 during Prodrome: no Aura: yes flashing lights in both eyes Location: Right side of the head Quality: Throbbing/Pounding and Pressure/Squeezing Pain intensity: 10/10 Duration of episodes: 1-2 days Frequency (number of total headache days): 2 migraines (1-2 days each) per month now Associated symptoms: Nausea/vomiting: nausea and vomiting Photophobia/phonophobia: Yes and Yes Dysautonomic features (unilateral tearing, conjunctival injection, ptosis, nasal congestion/rhinorrhea, ear fullness): No Associated sensory features: No Any strokelike features? No Other symptoms? no Post-ictal symptoms: fatigue Most bothersome symptom: pain Disability: yes, missing work Aggravating factors: Worse with physical activity: Yes Worse with bending over: No Worse with cough: No Menstrual period involvement: N/A Other aggravating factors: None Triggers: Chocolate and perfumes (avoids chocolate but exposed to perfumes sometimes at her job) Relieving factors: Sleep, cold Medications tried: Preventive medications: Amitripyline (cuts frequency down but causes drowsiness), duloxetine ineffective, lisinopril ineffective, occipital nerve blocks worked once but failed the 2nd time. Abortive medications: Acetaminophen, Excedrin migraine (ASA/acetaminophen/caffeine), Ibuprofen, naproxen, Rizatriptan (Maxalt), Sumatriptan (Imitrex), and Zolmitriptan (Zomig) all ineffective Current medications: Amitriptyline 50-75 nightly (depending on how late she can sleep in next day),no acute meds Response to current medications: Decent preventive benefit, poor rescue control Risk Factors: No head trauma, prior intracranial surgeries, or LINE PATROLMAN infections Family history: migraine headaches in mother Previous evaluation: Followed with Dr. Harrington. 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 Harrington said were migraine-related. A previous MRI was, by report, normal in 2016 so I am unclear what exactly he was talking about. Review of Systems: All systems reviewed and negative except those documented in the History of Present Illness (HPI). Pertinent positives are documented below: + migraines Medical/Surgical/Social/Family Histories: Pertinent Family Hx: migraines in mother; reportedly brother has Parkinson's and strokes in both parents. 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 She has a past surgical history that includes Hysterectomy; Section; Cyst Removal (09/2016); Carpal tunnel release (Right, 11/2011); Cholecystectomy (04/2017); Colonoscopy (2016); Reduction mammaplasty (Bilateral, 02/2020); Tonsillectomy (Bilateral, 11/13/2020); tonsillectomy; Colonoscopy (N/A, 07/22/2021); and Egd (N/A, 07/22/2021). She family history includes Alcohol abuse in her brother; COPD in her paternal grandfather and paternal grandmother; Colon cancer in her maternal grandmother; Diabetes in her father; Heart attack in her mother; Heart disease in her father and mother; Hypertension in her father and mother; Parkinson's in her brother; Stroke in her father and mother. She reports that she has never smoked. She has never used smokeless tobacco. She reports previous alcohol use. She reports that she does not use drugs. Allergies: Allergies: Bee venom protein (honey bee), Asa [aspirin], Caffeine, Ct: iodinated contrast- oral and iv dye, Morphine, Oxycodone-acetaminophen, Penicillins, Red dye, Sulfamethoxazole, and Trimethoprim HOME Medications: Current Outpatient Medications Medication Instructions amLODIPine (NORVASC) 10 mg, Oral, Daily BIOTIN ORAL 5,000 mcg, Oral, Daily diclofenac sodium 1 % Gel apply 4 grams topically four times a day if needed dicyclomine (BENTYL) 10 MG capsule Take 1 cap Twice a day as needed estradioL (ESTRACE) 2 mg, Oral, Daily flurbiprofen (ANSAID) 100 mg, Oral, 3 times daily PRN fluticasone propionate (FLONASE) 50 mcg/actuation nasal spray 1 spray, Each Nare, 2 times daily glucosam/chond/hyalu/CF borate (MOVE FREE [facility] ORAL) Oral levothyroxine (SYNTHROID, LEVOTHROID) 88 mcg, Oral, Daily lisinopriL (PRINIVIL,ZESTRIL) 40 mg, Oral, Daily nortriptyline (PAMELOR) 75 mg, Oral, Nightly ubrogepant (UBRELVY) 100 mg, Oral, Daily PRN, Can take 2nd dose after 2 hours if migraine persists.Max dose 200mg per 24 hours. Objective OBJECTIVE: Physical Examination: BP 106/73 (BP Location: Left arm, Patient Position: Sitting, BP Cuff Size: Adult) Pulse 82 Resp16 Ht 4' 7 Wt 56.7 kg (125 lb) SpO2 97% BMI 29.05 kg/m GENERAL: General Appearance: In NAD Arrived late to appointment. HEENT: Normocephalic. No conjunctival injection. Ears appear normal. No substantial sinus drainage.See below for vision/hearing Neck: Supple, no tenderness, preserved ROM. Respiratory Effort: Normal Extremities: No edema Skin: No rashes visualized MSK: No joint deformities Headache specific exam shows no scalp tenderness. no scalp mass. no areas of tenderness over the mastoid, greater or lesser occipital nerve exit points. no vascular thickening or other mass lesions noted over the temples. TMJ is nontender, and unrestricted. no sinus tenderness noted anywhere. no tenderness over the cervical paraspinal muscles, trapezius muscles, and scapular muscles. no myofascial trigger point tenderness elsewhere. Fundoscopic Exam: Normal; no optic nerve edema or hemorrhages visualized MENTAL STATUS: Alertness, Attention Span & Concentration: Normal Language: Normal Speech: Normal Orientation: Oriented to person, place, time/date, and situation Memory, Recent & Remote: Normal Fund of Knowledge: Normal CRANIAL NERVES: II - Visual Kitchen: Normal II, III: Pupils: PERRL, no RAPD III, IV, : Eye Movements: Normal (EOMI, No ptosis, No nystagmus) V - Facial Sensation: Normal VII: Face Symmetry & Strength: Normal VIII - Hearing: Normal to finger rub b/l IX, X - Palate: Normal, elevates symmetrically XI - Shoulder Shrug: Normal XII - Tongue Protrusion: Normal, symmetric MOTOR: Muscle Strength Right Left 5 Shoulder Abduction (Deltoid) 5 5 Elbow Flexion (Biceps) 5 5 Elbow Extension (Triceps) 5 5 Wrist Flexion 5 5 Wrist Extension 5 5 Finger Abduction (Interossei) 5 Right Left 5 Hip Extension 5 5 Hip Flexion (Iliopsoas) 5 5 Knee Extension (Quads) 5 5 Knee Flexion (Hamstrings) 5 5 Dorsiflexion (Anterior Tibialis) 5 5 Plantar Flexion (Gastrocnemius) 5 Normal Bulk and Tone, no atrophy MOTOR BRADLEY: 5 Normal (Normal Power) 4 Mild Weakness (Movement against moderate resistance over a full range of motion) 3 Moderate Weakness (Movement against gravity only over almost full range of motion) 2 Severe Weakness (Movement with gravity eliminated over almost full range of motion) 1 Trace Movement (Contraction visible or palpable without effective movement of the joint) 0 No Movement (No contraction visible or palpable) BERNAEB Unable to Assess SENSATION: Fine Touch: Normal Pinprick: Normal REFLEXES: Right Reflexes Left 2+ Biceps 2+ 2+ Triceps 2+ 2+ Brachioradialis 2+ 2+ Patellar 2+ 2+ Achilles 2+ Down Plantar Response (Babinski) Down REFLEXES BRADLEY: 4+ Sustained Clonus 3+ Brisk 2+ Normal 1+ Diminished 0 Absent BERNABE Unable to Assess COORDINATION: Coordination [id number]-[id number]: Normal Barboza Finger taps: normal Coordination Rwyh-Apgi-Zvyn: normal Diadochokinesis: normal STANCE AND GAIT: Base/Stance: Normal/ narrow base Gait: Normal with regards to heel strike, stride length, trent, turn, and arm swing Gait Aid Used During Exam: None Gait Assistance Required During Exam: None MOVEMENT DISORDERS EXAMINATION: Tremor - no tremors noted Bradykinesia - None Rigidity - None Dyskinesia/Choreoathetosis - None Dystonia/Myoclonus/Tics - None PRIOR TESTING: Imaging: MRI brain w/ and w/o 08/17/15 was read as normal without any significant FLAIR abnormalities or any other abnormal features. Labs: B12 273, folate 19 A1c 5.7 LDL 115 CMP WNL, CBC with anemia (Hgb 11.4, Hgb 486) VIRGEN 1:160 speckled, RF negative TSH/T4 WNL documented in this [id number] History of Present illness Narrative* Negro Landrum MD - 08/13/2021 4:26 PM EDT Lima Jordan 50 y.o. 1970 female Changes since last visit: 50-year-old female had colonoscopy and EGD for chronic diarrhea and epigastric pain. She also has family history of colon cancer. Both EGD and colonoscopy was normal biopsy from duodenum terminal ileum and ascending colon were unremarkable. Patient is feeling better she says her diarrhea is better no abdominal pain. Past Medical History: Past Medical History: Diagnosis Date Anemia Arthritis hips Back pain Endometriosis 1996 Family history of colon cancer GERD (gastroesophageal reflux disease) Hypertension Hypothyroid Low back pain 06/26/2011 Migraine 06/26/2011 Migraines Mixed hyperlipidemia 06/26/2011 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 Spina bifida occulta 06/26/2011 Stroke (HCC) 1999 TIA (transient ischemic attack) Vitamin D deficiency 12/21/2013 Family History Problem Relation Age of Onset Heart disease Mother Hypertension Mother Heart attack Mother Stroke Mother Hypertension Father Heart disease Father Diabetes Father Stroke Father Parkinson's Brother Alcohol abuse Brother Colon cancer Maternal Grandmother COPD Paternal Grandmother COPD Paternal Grandfather Surgical History & Procedures: Past Surgical History: Procedure Laterality Date CARPAL TUNNEL RELEASE Right 11/2011 SECTION x 2 - 1992 - 1995 CHOLECYSTECTOMY 04/2017 COLONOSCOPY 2016 COLONOSCOPY N/A 07/22/2021 Procedure: COLONOSCOPY WITH BIOPSY; Surgeon: Negro Landrum MD; Location: [facility] [place] OR; Service: Gastroenterology CYST REMOVAL 09/2016 back EGD N/A 07/22/2021 Procedure: ESOPHAGOGASTRODUODENOSCOPY WITH BIOPSY; Surgeon: Negro Landrum MD; Location: [facility] [place] [facility]; Service: Gastroenterology HYSTERECTOMY REDUCTION MAMMAPLASTY Bilateral 02/2020 TONSILLECTOMY Bilateral 11/13/2020 Procedure: TONSILLECTOMY; Surgeon: David Hawthorne MD; Location: [facility]; Service: Otolaryngology TONSILLECTOMY Social History: Social History Socioeconomic History Marital status: Tobacco Use Smoking status: Never Smokeless tobacco: Never Vaping Use Vaping Use: Some days Substance and Sexual Activity Alcohol use: Not Currently Comment: SOCIALLY - once everyy 3 to 4 months Drug use: No Sexual activity: Yes Partners: Male Social Determinants of Health Financial Resource Strain: Medium Risk Difficulty of Paying Living Expenses: Somewhat hard Food Insecurity: No Food Insecurity Worried About Running Out of Food in the Last Year: Never true Ran Out of Food in the Last Year: Never true Transportation Needs: No Transportation Needs Lack of Transportation (Medical): No Lack of Transportation (Non-Medical): No Social Connections: Unknown Frequency of Social Gatherings with Friends and Family: Three times a week Current Medications: Current Outpatient Medications Medication Sig Dispense Refill amitriptyline (ELAVIL) 25 MG tablet Take 50 mg by mouth nightly . amLODIPine (NORVASC) 10 MG tablet Take 1 (one) tablet (10 mg total) by mouth daily . 90 tablet 3 BIOTIN ORAL Take 5,000 mcg by mouth once daily . cyanocobalamin (B-12) 50 mcg tablet Take 50 mcg by mouth once a week . diclofenac sodium 1 % Gel apply 4 grams topically four times a day if needed dicyclomine (BENTYL) 10 MG capsule Take 1 cap Twice a day as needed . 30 capsule 0 ergocalciferol (ERGOCALCIFEROL) 1,250 mcg (50,000 unit) capsule Take 1 (one) capsule (50,000 Units total) by mouth once a week . 4 capsule 12 estradioL (ESTRACE) 2 MG tablet Take 1 (one) tablet (2 mg total) by mouth daily . 90 tablet 1 flurbiprofen (ANSAID) 100 MG tablet Take 100 mg by mouth 3 (three) times a day as needed . fluticasone propionate (FLONASE) 50 mcg/actuation nasal spray 1 spray by Each Nare route 2 (two) times a day . glucosam/chond/hyalu/CF borate (MOVE FREE [facility] ORAL) Take by mouth . levothyroxine (SYNTHROID, LEVOTHROID) 88 MCG tablet Take 1 (one) tablet (88 mcg total) by mouth once daily . 90 tablet 3 lisinopriL (PRINIVIL,ZESTRIL) 40 MG tablet Take 1 (one) tablet (40 mg total) by mouth daily . 90 tablet 3 SUMAtriptan (IMITREX) 100 MG tablet take 1 tablet by mouth every 2 hours if needed UP TO 2 TABLETS DAILY tiZANidine (ZANAFLEX) 4 MG tablet Take 8 mg by mouth nightly . Current Facility-Administered Medications Medication Dose Route Frequency Provider Last Rate Last Admin cyanocobalamin (B-12) injection 1,000 mcg 1,000 mcg Intramuscular Q30 Days Aury Mera MD 1,000 mcg at 06/21/20 1128 cyanocobalamin (B-12) injection 1,000 mcg 1,000 mcg Intramuscular Q30 Days Aury Mera MD 1,000 mcg at 09/06/20 0841 Review of Systems Constitutional: Negative for appetite change and unexpected weight change. HENT: Negative for voice change. Respiratory: Negative for cough, choking and shortness of breath. Cardiovascular: Negative for chest pain and leg swelling. Gastrointestinal: Negative for abdominal pain, anal bleeding, blood in stool, constipation, diarrhea, nausea, rectal pain and vomiting. Genitourinary: Negative for hematuria. Musculoskeletal: Negative for arthralgias and joint swelling. Skin: Negative for pallor. Neurological: Negative for dizziness, tremors and weakness. Hematological: Negative for adenopathy. Does not bruise/bleed easily. Psychiatric/Behavioral: Negative for confusion. Physical Exam Constitutional: Appearance: Normal appearance. Eyes: Pupils: Pupils are equal, round, and reactive to light. Cardiovascular: Pulses: Normal pulses. Heart sounds: Normal heart sounds. Pulmonary: Breath sounds: Normal breath sounds. Abdominal: General: Bowel sounds are normal. Palpations: Abdomen is soft. There is no mass. Tenderness: There is no abdominal tenderness. Skin: Coloration: Skin is not jaundiced. Neurological: General: No focal deficit present. Mental Status: She is alert and oriented to person, place, and time. Psychiatric: Behavior: Behavior normal. Admission on 07/22/2021, Discharged on 07/22/2021 Component Date Value Ref Range Status Case Report 07/22/2021 Final Value:Surgical Pathology Report Case: [id number] Authorizing Provider: Negro Landrum, Collected: 07/22/2021 08:55 AM Ordering Location: [facility] Received: 07/22/2021 10:18 AM Center Periop Pathologist: Ashkan Puente MD Specimens: A) - Small Bowel, Terminal Ileum B) - Colon, Ascending, Right C) - Duodenum Final Diagnosis 07/22/2021 Final Value:This result contains rich text formatting which cannot be displayed here. Clinical Information 07/22/2021 Final Value:This result contains rich text formatting which cannot be displayed here. Gross Description 07/22/2021 Final Value:This result contains rich text formatting which cannot be displayed here. Microscopic Description 07/22/2021 Final Value:This result contains rich text formatting which cannot be displayed here. POC H. Pylori 07/22/2021 Negative Negative Final Internal Control 07/22/2021 Pass Final Lot Number 07/22/2021 [id number] Final Assessment & Plan: 50-year-old female with history of diarrhea off and on colonoscopy and EGD was normal biopsy from duodenum and terminal ileum and ascending colon were unremarkable. She might have underlying irritable bowel syndrome. At present I asked her to use high-fiber diet and take Imodium on as needed basis. Patient is referred back to primary care physician. Negro Landrum MD documented in this [id number] Evaluation + Plan note* Assessment & Plan Note - Aury Mera MD - 07/09/2021 12:01 PM EDTAssociated Problem(s): Migraine Symptoms are consistent with migraines. Appear to be controlled with Amitriptyline. Can continue. Iwill refer to neurology per request [id number] Miscellaneous Notes* Assessment & Plan Note - Aury Mera MD - 07/09/2021 12:01 PM EDTAssociated Problem(s): Migraine Symptoms are consistent with migraines. Appear to be controlled with Amitriptyline. Can continue. Iwill refer to neurology per request * Assessment & Plan Note - Aury Mera MD - 07/09/2021 11:59 AM EDTAssociated Problem(s): Chronic right-sided low back pain without sciatica Chronic. Last Xray of the L-spine did show osteophytes L3-L4 degenerative changes. She is on NSAID and Zanaflex. Recommend that she continues to follow up with Dr. Balderas. Currently getting injections. * Assessment & Plan Note - Aury Mera MD - 07/09/2021 11:58 AM EDTAssociated Problem(s): Epigastric pain Following with gastroenterology. She is currently on Bentyl Imodium for chronic diarrhea. She has aEGD scheduled * Assessment & Plan Note - Aury Mera MD - 07/09/2021 11:57 AM EDTAssociated Problem(s): Hypothyroidism Chronic, last TSH was 04/2020. Recheck labs today, normal TSH/T4. Synthroid refilled * Assessment & Plan Note - Aury Mera MD - 07/09/2021 9:15 AM EDTAssociated Problem(s): Hypertension Chronic, controlled. Goal < 140/90. Refilled lisinopril and amlodipine Labs ordered to review renal function documented in this [id number] Evaluation + Plan note* Assessment & Plan Note - Aury Mera MD - 07/09/2021 11:59 AM EDTAssociated Problem(s): Chronic right-sided low back pain without sciatica Chronic. Last Xray of the L-spine did show osteophytes L3-L4 degenerative changes. She is on NSAID and Zanaflex. Recommend that she continues to follow up with Dr. Balderas. Currently getting injections. [id number] Evaluation + Plan note* Assessment & Plan Note - Aury Mera MD - 07/09/2021 11:58 AM EDTAssociated Problem(s): Epigastric pain Following with gastroenterology. She is currently on Bentyl Imodium for chronic diarrhea. She has aEGD scheduled [id number] Evaluation + Plan note* Assessment & Plan Note - Aury Mera MD - 07/09/2021 11:57 AM EDTAssociated Problem(s): Hypothyroidism Chronic, last TSH was 04/2020. Recheck labs today, normal TSH/T4. Synthroid refilled [id number] Evaluation + Plan note* Assessment & Plan Note - Aury Mera MD - 07/09/2021 9:15 AM EDTAssociated Problem(s): Hypertension Chronic, controlled. Goal < 140/90. Refilled lisinopril and amlodipine Labs ordered to review renal function [id number] History of Present illness Narrative* Aury Mera MD - 07/09/2021 9:01 AM EDT Lima Jordan is a 50 y.o. female Assessment/Plan: Problem List Items Addressed This Visit Endocrine Hypothyroidism Chronic, last TSH was 04/2020. Recheck labs today, normal TSH/T4. Synthroid refilled Relevant Medications levothyroxine (SYNTHROID, LEVOTHROID) 88 MCG tablet Other Relevant Orders TSH (Completed) T4, Free (Completed) Cardiovascular and Mediastinum Migraine - Primary Symptoms are consistent with migraines. Appear to be controlled with Amitriptyline. Can continue. Iwill refer to neurology per request Relevant Medications flurbiprofen (ANSAID) 100 MG tablet tiZANidine (ZANAFLEX) 4 MG tablet amLODIPine (NORVASC) 10 MG tablet Other Relevant Orders Ambulatory referral to Neurology Hypertension Chronic, controlled. Goal < 140/90. Refilled lisinopril and amlodipine Labs ordered to review renal function Relevant Medications amLODIPine (NORVASC) 10 MG tablet lisinopriL (PRINIVIL,ZESTRIL) 40 MG tablet Other Relevant Orders CBC and Differential (Completed) Comprehensive Metabolic Panel (Completed) Other Vitamin D deficiency Relevant Orders Vitamin D, Total, 25-OH (Completed) Mixed hyperlipidemia Relevant Orders Lipid Panel (Completed) Epigastric pain Following with gastroenterology. She is currently on Bentyl Imodium for chronic diarrhea. She has aEGD scheduled Chronic right-sided low back pain without sciatica Chronic. Last Xray of the L-spine did show osteophytes L3-L4 degenerative changes. She is on NSAID and Zanaflex. Recommend that she continues to follow up with Dr. Balderas. Currently getting injections. Other Visit Diagnoses Encounter for screening for cardiovascular disorders Relevant Orders Hemoglobin A1c B12 deficiency Relevant Orders B12/Folate (Completed) Return in about 6 months (around 01/09/2022) for Annual physical/ no PAP. Lima Jordan is a 50 y.o. female who presents for Chief Complaint Patient presents with Hypertension Hypothyroidism Headache HPI This is a 50-year-old female with a history of spina bifida, migraines, stroke, hypertension and hypothyroidism. Migraine/fibromyalgia: Was seeing Dr. Harrington, neurology for her fibromyalgia and her migraines. She endorses a history of several mini strokes. For starting the amitriptyline her migraines have beenwell controlled. These headaches are normally frontal in location and cause nausea and vomiting. She has photo and phonophobia. Certain odors do trigger her. For her fibromyalgia he can give her Zanaflex. Chronic back pain: Follows with Dr. Avalos and does get injections into her back which helps her. Sheis also on daily anti-inflammatory. She is on Zanaflex for her fibromyalgia as well. Feels like is stable. HRT: Started: in her 30's. S/p hysterectomy for endometriosis. Symptoms included: Hot flashes Medication: Estrace Any vaginal bleeding? No Hx of DVT/PE? No Hx of breast cancer? No Last mammogram: 05/10/21 Epigastric pain-currently working with gastroenterology. Has a EGD scheduled. She eats food at assisted. Her stools are abnormal. She is on Bentyl and Imodium. Insomnia- has been on Trazodone for this and it has been helping. Was told that her brain just doesn't shut down. Patient Active Problem List Diagnosis Hypertension Stroke (HCC) Chronic right-sided low back pain without sciatica Postartificial menopausal syndrome Hypothyroidism Vitamin D deficiency Spina bifida occulta Migraine Mixed hyperlipidemia Insomnia Osteopenia Chronic right hip pain Macromastia Family history of colon cancer Fatigue S/P bilateral breast reduction Chronic tonsillitis and adenoiditis TIA (transient ischemic attack) Epigastric pain Chronic diarrhea Past Surgical History: Procedure Laterality Date CARPAL TUNNEL RELEASE Right 11/2011 SECTION x 2 - 1991 - 1994 CHOLECYSTECTOMY 04/2017 COLONOSCOPY 2017 CYST REMOVAL 09/2016 back HYSTERECTOMY REDUCTION MAMMAPLASTY Bilateral 02/2020 TONSILLECTOMY Bilateral 11/13/2020 Procedure: TONSILLECTOMY; Surgeon: David Hawthorne MD; Location: Main OR; Service: Otolaryngology Family History Problem Relation Age of Onset Heart disease Mother Hypertension Mother Heart attack Mother Stroke Mother Hypertension Father Heart disease Father Diabetes Father Stroke Father Parkinson's Brother Alcohol abuse Brother Colon cancer Maternal Grandmother COPD Paternal Grandmother COPD Paternal Grandfather Social History Tobacco Use Smoking status: Never Smoker Smokeless tobacco: Never Used Vaping Use Vaping Use: Some days Substance Use Topics Alcohol use: Not Currently Comment: SOCIALLY - once everyy 3 to 4 months Drug use: No Current Outpatient Medications Medication Sig Dispense Refill amitriptyline (ELAVIL) 25 MG tablet Take 50 mg by mouth nightly . BIOTIN ORAL Take 5,000 mcg by mouth once daily . cyanocobalamin (B-12) 50 mcg tablet Take 50 mcg by mouth once a week . diclofenac sodium 1 % Gel apply 4 grams topically four times a day if needed dicyclomine (BENTYL) 10 MG capsule Take 1 cap Twice a day as needed . 30 capsule 0 ergocalciferol (ERGOCALCIFEROL) 1,250 mcg (50,000 unit) capsule Take 1 (one) capsule (50,000 Units total) by mouth once a week . 4 capsule 12 estradioL (ESTRACE) 2 MG tablet Take 1 (one) tablet (2 mg total) by mouth daily . 90 tablet 1 flurbiprofen (ANSAID) 100 MG tablet Take 100 mg by mouth 3 (three) times a day as needed . fluticasone propionate (FLONASE) 50 mcg/actuation nasal spray 1 spray by Each Nare route 2 (two) times a day . glucosam/chond/hyalu/CF borate (MOVE FREE JOINT HEALTH ORAL) Take by mouth . loperamide (IMODIUM A-D) 2 mg tablet 1 POBID PRN #30 . (Patient taking differently: 1 PO BID #30 .)30 tablet 0 tiZANidine (ZANAFLEX) 4 MG tablet Take 8 mg by mouth nightly . amLODIPine (NORVASC) 10 MG tablet Take 1 (one) tablet (10 mg total) by mouth daily . 90 tablet 3 levothyroxine (SYNTHROID, LEVOTHROID) 88 MCG tablet Take 1 (one) tablet (88 mcg total) by mouth once daily . 90 tablet 3 lisinopriL (PRINIVIL,ZESTRIL) 40 MG tablet Take 1 (one) tablet (40 mg total) by mouth daily . 90 tablet 3 SUMAtriptan (IMITREX) 100 MG tablet take 1 tablet by mouth every 2 hours if needed UP TO 2 TABLETS DAILY Current Facility-Administered Medications Medication Dose Route Frequency Provider Last Rate Last Admin cyanocobalamin (B-12) injection 1,000 mcg 1,000 mcg Intramuscular Q30 Days Aury Mera MD 1,000 mcg at 06/21/20 1128 cyanocobalamin (B-12) injection 1,000 mcg 1,000 mcg Intramuscular Q30 Days Aury Mera MD 1,000 mcg at 09/06/20 0841 Review of Systems Constitutional: Negative for diaphoresis and fatigue. Respiratory: Negative for shortness of breath. Cardiovascular: Negative for chest pain. Gastrointestinal: Positive for abdominal pain. Musculoskeletal: Positive for arthralgias. Negative for gait problem. Neurological: Negative for weakness, numbness and headaches. Physical Exam: BP 128/83 (BP Location: Left arm, Patient Position: Sitting, BP Cuff Size: Adult) Pulse 84 Temp98.2 F (36.8 C) (Temporal) Resp 16 Ht 4' 7 Wt 60.1 kg (132 lb 8 oz) SpO2 98% BMI 30.80 kg/m Wt Readings from Last 3 Encounters: 07/09/21 60.1 kg (132 lb 8 oz) 06/26/21 59.2 kg (130 lb 8 oz) 01/28/21 58.7 kg (129 lb 6.4 oz) BP Readings from Last 3 Encounters: 07/09/21 128/83 06/26/21 130/83 01/28/21 131/86 Physical Exam Vitals reviewed. Constitutional: General: She is not in acute distress. Appearance: She is not ill-appearing. HENT: Head: Normocephalic. Eyes: Conjunctiva/sclera: Conjunctivae normal. Cardiovascular: Rate and Rhythm: Normal rate. Pulmonary: Effort: Pulmonary effort is normal. No respiratory distress. Neurological: Mental Status: She is alert and oriented to person, place, and time. Psychiatric: Mood and Affect: Mood normal. Behavior: Behavior normal. Thought Content: Thought content normal. Health Maintenance Due Topic Date Due Wellness Visit Never done HIV Screening Never done Hepatitis C Screening Never done Colorectal Cancer Screening 11/08/2019 Depression Screening (PHQ-2/9) 09/25/2020 COVID-19 Vaccine (3 - Booster for Moderna series) 02/06/2021 Goals Blood Pressure < 140/90 High blood pressure makes your heart work too hard. It can cause heart attack, stroke and kidney disease. Blood pressure goal is 140/90 or less. You will complete 150 minutes of formal exercise per week. You will maintain a BMI of 18.5-24.9 TOTAL CHOLESTEROL < 199 Total cholesterol goal is less than 199 Triglyceride goal is less than 150 HDL or good cholesterol is above 45 LDL goal is less than 100 Please note: Portions of this chart may have been created with [employer] voice recognition software. Occasional wrong-word or sound-like substitutions may have occurred due to inherent limitations of the voice recognition software. Please read the chart carefully and recognize, using context, where the substitutions have occurred. For any new medications prescribed today, patient was educated about indications for the medication, how to take the medication and potential side effects of the medications. documented in this [id number] Miscellaneous Notes* Assessment & Plan Note - Aury Mera MD - 01/28/2021 4:25 PM EST Associated Problem(s): Cough Per patient was Covid positive. Did not have a positive test in our records. Her cough is improvingoverall. Her respiratory rate, pulse ox and physical exam are normal today. Okay return to work. Did give her a work note. If positive for COVID need 10 to 14 days quarantine. Return 02/05 documented in this [id number] History of Present illness Narrative* Aury Mera MD - 01/28/2021 4:17 PM EST Lima Jordan is a 50 y.o. female Assessment/Plan: Problem List Items Addressed This Visit Other Cough - Primary Per patient was Covid positive. Did not have a positive test in our records. Her cough is improvingoverall. Her respiratory rate, pulse ox and physical exam are normal today. Okay return to work. Did give her a work note. If positive for COVID need 10 to 14 days quarantine. Return 02/05 No follow-ups on file. Lima Jordan is a 50 y.o. female who presents for Chief Complaint Patient presents with Cough HPI This is a 50-year-old female who presents today to follow-up on her cough. She went to urgent care last week because she got sick. She took a home COVID test that was positive and her urgent care test was negative. She did have a video visit about 2 days later and was started tessalon which helped. She was also taking Mucinex and Robitussin. She is overall feeling well and ready to get back to work. Patient Active Problem List Diagnosis Hypertension Stroke (HCC) Chronic right-sided low back pain without sciatica Postartificial menopausal syndrome Hypothyroidism Vitamin D deficiency Spina bifida occulta Migraine Mixed hyperlipidemia Insomnia Osteopenia Chronic right hip pain Macromastia Family history of colon cancer Fatigue S/P bilateral breast reduction Chronic tonsillitis and adenoiditis Preop examination TIA (transient ischemic attack) COVID-19 Cough Sinusitis Past Surgical History: Procedure Laterality Date CARPAL TUNNEL RELEASE Right 11/2011 SECTION x 2 - 1991 - 1994 CHOLECYSTECTOMY 04/2017 COLONOSCOPY 2017 CYST REMOVAL 09/2016 back HYSTERECTOMY REDUCTION MAMMAPLASTY Bilateral 02/2020 TONSILLECTOMY Bilateral 11/13/2020 Procedure: TONSILLECTOMY; Surgeon: David Hawthorne MD; Location: Main OR; Service: Otolaryngology Family History Problem Relation Age of Onset Heart disease Mother Hypertension Mother Heart attack Mother Stroke Mother Hypertension Father Heart disease Father Diabetes Father Stroke Father Parkinson's Brother Alcohol abuse Brother Colon cancer Maternal Grandmother COPD Paternal Grandmother COPD Paternal Grandfather Social History Tobacco Use Smoking status: Never Smoker Smokeless tobacco: Never Used Vaping Use Vaping Use: Never used Substance Use Topics Alcohol use: Yes Comment: SOCIALLY - once everyy 3 to 4 months Drug use: No Current Outpatient Medications Medication Sig Dispense Refill amitriptyline (ELAVIL) 25 MG tablet Take 25 mg by mouth nightly. amLODIPine (NORVASC) 10 MG tablet Take 1 (one) tablet (10 mg total) by mouth daily . 90 tablet 3 benzonatate (TESSALON) 100 MG capsule Take 1 (one) capsule (100 mg total) by mouth 3 (three) times a day as needed for cough . 20 capsule 0 cyanocobalamin (B-12) 50 mcg tablet Take 50 mcg by mouth once a week . diclofenac sodium 1 % Gel apply 4 grams topically four times a day if needed ergocalciferol (ERGOCALCIFEROL) 1,250 mcg (50,000 unit) capsule Take 1 (one) capsule (50,000 Units total) by mouth once a week . 4 capsule 12 estradioL (ESTRACE) 2 MG tablet Take 1 (one) tablet (2 mg total) by mouth daily . 90 tablet 1 fluticasone propionate (FLONASE) 50 mcg/actuation nasal spray 1 spray by Each Nare route 2 (two) times a day . levothyroxine (SYNTHROID, LEVOTHROID) 88 MCG tablet Take 1 (one) tablet (88 mcg total) by mouth once daily . 90 tablet 1 lisinopriL (PRINIVIL,ZESTRIL) 40 MG tablet Take 1 (one) tablet (40 mg total) by mouth daily . 90 tablet 3 SUMAtriptan (IMITREX) 100 MG tablet take 1 tablet by mouth every 2 hours if needed UP TO 2 TABLETS DAILY flu vacc [id number] 6mos up,PF, (FLUZONE QUAD) injection Sign this order in conjunction with the immunization order to satisfy [place] Board of Pharmacy Positive ID requirements for immunization orders. . 0.5 mL 0 Current Facility-Administered Medications Medication Dose Route Frequency Provider Last Rate Last Admin cyanocobalamin (B-12) injection 1,000 mcg 1,000 mcg Intramuscular Q30 Days Aury Mera MD 1,000 mcg at 06/21/20 1128 cyanocobalamin (B-12) injection 1,000 mcg 1,000 mcg Intramuscular Q30 Days Aury Mera MD 1,000 mcg at 09/06/20 0841 Review of Systems Constitutional: Negative for chills, fatigue and fever. HENT: Negative for congestion, ear discharge, ear pain, hearing loss, postnasal drip, rhinorrhea, sinus pressure, sinus pain, sneezing, sore throat and trouble swallowing. Eyes: Negative for pain, discharge and itching. Respiratory: Positive for cough. Negative for chest tightness, shortness of breath and wheezing. Cardiovascular: Negative for chest pain and palpitations. Gastrointestinal: Negative for abdominal pain, diarrhea and nausea. Skin: Negative for rash. Allergic/Immunologic: Negative for environmental allergies and immunocompromised state. Neurological: Negative for headaches. Hematological: Negative for adenopathy. Physical Exam: BP 131/86 (BP Location: Right arm, Patient Position: Sitting, BP Cuff Size: Adult) Pulse 79 Temp 98.4 F (36.9 C) (Temporal) Resp 16 Ht 4' 7 Wt 58.7 kg (129 lb 6.4 oz) SpO2 96% BMI 30.08 kg/m Wt Readings from Last 3 Encounters: 01/28/21 58.7 kg (129 lb 6.4 oz) 11/20/20 58.1 kg (128 lb) 11/13/20 62 kg (136 lb 11 oz) BP Readings from Last 3 Encounters: 01/28/21 131/86 11/20/20 121/80 11/13/20 123/78 Physical Exam Vitals reviewed. Constitutional: General: She is not in acute distress. Appearance: She is not ill-appearing. HENT: Head: Normocephalic. Eyes: Conjunctiva/sclera: Conjunctivae normal. Cardiovascular: Rate and Rhythm: Normal rate and regular rhythm. Pulmonary: Effort: Pulmonary effort is normal. No respiratory distress. Breath sounds: Normal breath sounds. Skin: Findings: No rash. Neurological: Mental Status: She is alert and oriented to person, place, and time. Psychiatric: Mood and Affect: Mood normal. Behavior: Behavior normal. Thought Content: Thought content normal. Health Maintenance Due Topic Date Due Wellness Visit Never done HIV Screening Never done Hepatitis C Screening Never done Colorectal Cancer Screening 11/08/2019 Mammogram 04/28/2020 Depression Screening (PHQ-2/9) 09/25/2020 Sequential Influenza Vaccine (1) 11/07/2020 Lipid Panel 12/15/2020 Goals Blood Pressure < 140/90 High blood pressure makes your heart work too hard. It can cause heart attack, stroke and kidney disease. Blood pressure goal is 140/90 or less. You will complete 150 minutes of formal exercise per week. You will maintain a BMI of 18.5-24.9 TOTAL CHOLESTEROL < 199 Total cholesterol goal is less than 199 Triglyceride goal is less than 150 HDL or good cholesterol is above 45 LDL goal is less than 100 Please note: Portions of this chart may have been created with [employer] voice recognition software. Occasional wrong-word or sound-like substitutions may have occurred due to inherent limitations of the voice recognition software. Please read the chart carefully and recognize, using context, where the substitutions have occurred. For any new medications prescribed today, patient was educated about indications for the medication, how to take the medication and potential side effects of the medications. documented in this [id number] Miscellaneous Notes* Assessment & Plan Note - Yoly Vazquez CNP - 01/23/2021 2:46 PM EST Associated Problem(s): COVID-19 Symptom onset > 7 days so does not qualify for monoclonal antibody treatment. Continue supportive care. To f/u if unable to return to work as scheduled per employer. See patient instructions for further information. * Assessment & Plan Note - Yoly Vazquez CNP - 01/23/2021 1:37 PM EST Associated Problem(s): Cough 2 positive covid home tests. Symptoms x 9 days. Has been isolating. With current symptoms discussed antibiotic therapy and benzonatate. You've been prescribed an antibiotic today. Please take this medication as directed, and complete the entire treatment. Please note that some antibiotics can cause an upset stomach and/or diarrhea. If you develop an upset stomach while taking the antibiotic, please eat something small when taking this medication. To prevent diarrhea you can take a probiotic which can be found [id number] or eat yogurt twice a day. documented in this [id number] Instructions* Patient Instructions* Yoly Vazquez CNP - 01/23/2021 1:43 PM EST Images from the original note were not included. documented in this [id number] History of Present illness Narrative* Yoly Vazquez CNP - 01/23/2021 1:21 PM EST Telephone Visit Via Phone Call [facility] [address] [facility] [address] [facility] [id number] Telephone Visit [facility] 01/23/2021 Yoly Vazquez CNP Provider Location: office* Patient Location Technology Services Manager: None Patient Location: Patient's Home Patient: Lima Jordan Date of : 1970 (50 y.o. female) PCP: Aury Mera MD Video visit attempted. Connection lost after initially connnected. Audio did not work on Archana's end. I discussed risks, benefits and alternatives of a telephone visit telemedicine consultation with the patient (and any accompanying persons) including the risks that the patient's personal health details and medical records will be discussed over real-time, synchronous, interactive audio technology,the visit will not be recorded without the express consent of both the provider and the patient, and that there are inherent diagnostic limitations compared to [id number] evaluations. We elected toproceed with the telephone visit telemedicine consultation. ID confirmed with name and . HPI symptom onset : Thursday01/15/21 Date of covid testing : positive home tests on 01/16/21 and Thursday (01/18/21) States is off of work until Thursday. ([facility]). States does not feel ready to return towork on Thursday the way that she feels now. She will f/u if she feels that she needs more time off of work. Symptoms include the following: loss of taste / smell: Fever- self reported temp / vital signs : initially temp 102.1 - states 97.6 today ( forehead) Pulse ox today 97%. Cough: yes Shortness of breath: no Chest pain: no Headache: Yes - right sided Fatigue: yes Congestion : yes runny nose: yes Sinus pain: yes Sneezing: no ear pain: no Sore throat: no Laryngitis: yes Myalgias: yes Abd pain, n/v/d: - dry mouth and diarrhea yest. No diarrhea today. Appetite: low Rash: no Other: n/a History asthma / pneumonia / copd: no Treatments tried : mucinex. Last taken this morning doesn't seem to help Tobacco use: no Covid - 19 vaccine: yes Known covid exposure: unknown Quarantine: yes - states she sent her and kids 'away' and she has been the only one in the house since she has been sick. 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 The following portions of the patient's history were reviewed and updated as appropriate: allergies, current medications, past family history, past medical history, past social history, past surgicalhistory, and problem list. Review of Systems Constitutional: Positive for activity change, appetite change, fatigue and fever. Negative for chills and diaphoresis. HENT: Positive for congestion and sinus pain. Negative for sneezing, sore throat and trouble swallowing. Respiratory: Positive for cough. Negative for chest tightness, shortness of breath and wheezing. Cardiovascular: Negative for chest pain and palpitations. Gastrointestinal: Negative for abdominal pain, constipation, diarrhea, nausea and vomiting. Genitourinary: Negative for dysuria. Musculoskeletal: Positive for myalgias. Negative for neck pain and neck stiffness. Neurological: Negative for dizziness, light-headedness and headaches. Physical: Archana was able to speak easily and in full sentences for the duration of the televisit. Productivecough noted. Was able to speak in full sentences. Laryngitis noted. No apparent shortness of breathwas noted. Patient's Medications New Prescriptions AZITHROMYCIN (Z-HUGO) 5 DAY DOSE PACK Take 2 tablets by mouth day one then one tablet days 2 - 4. . BENZONATATE (TESSALON) 100 MG CAPSULE Take 1 (one) capsule (100 mg total) by mouth 3 (three) times a day as needed for cough . Previous Medications AMITRIPTYLINE (ELAVIL) 25 MG TABLET Take 25 mg by mouth nightly. AMLODIPINE (NORVASC) 10 MG TABLET Take 1 (one) tablet (10 mg total) by mouth daily . CYANOCOBALAMIN (B-12) 50 MCG TABLET Take 50 mcg by mouth once a week . DICLOFENAC SODIUM 1 % GEL apply 4 grams topically four times a day if needed ERGOCALCIFEROL (ERGOCALCIFEROL) 1,250 MCG (50,000 UNIT) CAPSULE Take 1 (one) capsule (50,000 Units total) by mouth once a week . ESTRADIOL (ESTRACE) 2 MG TABLET Take 1 (one) tablet (2 mg total) by mouth daily . FLUTICASONE PROPIONATE (FLONASE) 50 MCG/ACTUATION NASAL SPRAY 1 spray by Each Nare route 2 (two) times a day . LEVOTHYROXINE (SYNTHROID, LEVOTHROID) 88 MCG TABLET Take 1 (one) tablet (88 mcg total) by mouth once daily . LISINOPRIL (PRINIVIL,ZESTRIL) 40 MG TABLET Take 1 (one) tablet (40 mg total) by mouth daily . SUMATRIPTAN (IMITREX) 100 MG TABLET take 1 tablet by mouth every 2 hours if needed UP TO 2 TABLETS DAILY Modified Medications No medications on file Discontinued Medications AZITHROMYCIN (ZITHROMAX) 200 MG/5 ML SUSPENSION 400 mg p.o. tonight, then 200 mg p.o. daily for 4 more days of the weight equivalent of the reconstituted suspension. . DULOXETINE (CYMBALTA) 60 MG CAPSULE Take 60 mg by mouth daily . FLURBIPROFEN (ANSAID) 100 MG TABLET take 1 tablet by mouth three times a day if needed for pain TIZANIDINE (ZANAFLEX) 4 MG TABLET Take 8 mg by mouth as needed . ZINC GLUCONATE 100 MG TAB Take by mouth daily . Assessment/Plan: Problem List Items Addressed This Visit Respiratory Sinusitis Relevant Medications azithromycin (Z-HUGO) 5 day dose pack Other COVID-19 - Primary Symptom onset > 7 days so does not qualify for monoclonal antibody treatment. Continue supportive care. To f/u if unable to return to work as scheduled per employer. See patient instructions for further information. Relevant Medications benzonatate (TESSALON) 100 MG capsule Cough 2 positive covid home tests. Symptoms x 9 days. Has been isolating. With current symptoms discussed antibiotic therapy and benzonatate. You've been prescribed an antibiotic today. Please take this medication as directed, and complete the entire treatment. Please note that some antibiotics can cause an upset stomach and/or diarrhea. If you develop an upset stomach while taking the antibiotic, please eat something small when taking this medication. To prevent diarrhea you can take a probiotic which can be found [id number] or eat yogurt twice a day. Relevant Medications azithromycin (Z-HUGO) 5 day dose pack benzonatate (TESSALON) 100 MG capsule Risks benefits and side effect of any medications prescribed have been discussed with Andie. I have spent 20 minutes on this patient's encounter today. Yoly Vazquez CNP documented in this [id number] History of Present illness Narrative* Chaitanya Mauricio CNP - 11/20/2020 9:30 AM EDT ENT Clinic Follow up Note History of Present Illness Lima Jordan is a 50 y.o. y/o female presents for follow up regarding tonsillectomy. Known patient to the clinic who presents with her childhood friend and had bilateral tonsils removal done on 11/13/[address] Banks. Patient reports she is doing well and is beginning to resume normal activity. Has completed oral antibiotic and reports dumping pain medication out due to burning pain when taking and patient states my brother is a recovering addict and he is in and out of my house. Has been using Tylenol for pain which does provide benefit. She is drinking well and reports decreased appetite since surgery. Continues with throat/tongue discomfort with swallowing and ear pain. Denies lymphadenopathy, nausea, vomiting, bleeding, or infection. Allergies Allergen Reactions Bee Venom Protein (Honey Bee) Hives Asa [Aspirin] GI Intolerance Caffeine Other (See Comments) anxiety Ct: Iodinated Contrast- Oral And Iv Dye Hives Morphine Hives Oxycodone-Acetaminophen Stated I can't function Penicillins Hives Red Dye Sulfamethoxazole GI Intolerance GI problems Bactrim Trimethoprim GI Intolerance GI problems Bactrim Past Medical History: Diagnosis Date Anemia Arthritis hips Back pain Endometriosis 1996 Family history of colon cancer GERD (gastroesophageal reflux disease) Hypertension Hypothyroid Low back pain 06/26/2011 Migraine 06/26/2011 Migraines Mixed hyperlipidemia 06/26/2011 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 Spina bifida occulta 06/26/2011 Stroke (HCC) 2000 TIA (transient ischemic attack) Vitamin D deficiency 12/21/2013 Social History Socioeconomic History Marital status: Spouse name: Not on file Number of children: Not on file Years of education: Not on file Highest education level: Not on file Occupational History Not on file Tobacco Use Smoking status: Never Smoker Smokeless tobacco: Never Used Vaping Use Vaping Use: Never used Substance and Sexual Activity Alcohol use: Yes Comment: SOCIALLY - once everyy 3 to 4 months Drug use: No Sexual activity: Yes Partners: Male Other Topics Concern Not on file Social History Narrative Not on file Social Determinants of Health Financial Resource Strain: Difficulty of Paying Living Expenses: Not on file Food Insecurity: Worried About Running Out of Food in the Last Year: Not on file Ran Out of Food in the Last Year: Not on file Transportation Needs: Lack of Transportation (Medical): Not on file Lack of Transportation (Non-Medical): Not on file Physical Activity: Days of Exercise per Week: Not on file Minutes of Exercise per Session: Not on file Stress: Feeling of Stress : Not on file Social Connections: Frequency of Communication with Friends and Family: Not on file Frequency of Social Gatherings with Friends and Family: Not on file Attends L[employer] Services: Not on file Active Member of Clubs or Organizations: Not on file Attends Club or Organization Meetings: Not on file Marital Status: Not on file Housing Stability: Unable to Pay for Housing in the Last Year: Not on file Number of Places Lived in the Last Year: Not on file Unstable Housing in the Last Year: Not on file Family History Problem Relation Age of Onset Heart disease Mother Hypertension Mother Heart attack Mother Stroke Mother Hypertension Father Heart disease Father Diabetes Father Stroke Father Parkinson's Brother Alcohol abuse Brother Colon cancer Maternal Grandmother COPD Paternal Grandmother COPD Paternal Grandfather Past Surgical History: Procedure Laterality Date CARPAL TUNNEL RELEASE Right 11/2011 SECTION x 2 - 1991 - 1994 CHOLECYSTECTOMY 04/2017 COLONOSCOPY 2017 CYST REMOVAL 09/2016 back HYSTERECTOMY REDUCTION MAMMAPLASTY Bilateral 02/2020 TONSILLECTOMY Bilateral 11/13/2020 Procedure: TONSILLECTOMY; Surgeon: David Hawthorne MD; Location: Main OR; Service: Otolaryngology The following systems were reviewed and revealed the following in addition to any already discussedin the HPI: Review of Systems Constitutional: Positive for activity change, appetite change and fatigue. Negative for fever and unexpected weight change. HENT: Positive for ear pain, hearing loss, sore throat, tinnitus, trouble swallowing and voice change. Negative for congestion, dental problem, drooling, mouth sores, nosebleeds, postnasal drip, rhinorrhea, sinus pressure and sinus pain. Eyes: Negative for pain, discharge and visual disturbance. Respiratory: Negative for apnea, choking, chest tightness, shortness of breath and wheezing. Cardiovascular: Negative. Negative for chest pain and palpitations. Gastrointestinal: Negative for nausea and vomiting. Musculoskeletal: Positive for arthralgias, myalgias, neck pain and neck stiffness. Skin: Negative. Allergic/Immunologic: Positive for environmental allergies. Neurological: Positive for headaches. Hematological: Negative. Psychiatric/Behavioral: Negative for confusion. The patient is not nervous/anxious. Physical Exam Vitals: 11/20/20 0935 BP: 121/80 BP Location: Left arm Patient Position: Sitting BP Cuff Size: Adult Pulse: (!) 106 Resp: 18 SpO2: 96% Weight: 58.1 kg (128 lb) Height: 4' 7 Physical Exam Vitals reviewed. Constitutional: General: She is not in acute distress. Appearance: She is well-developed. She is not ill-appearing or diaphoretic. HENT: Head: Normocephalic and atraumatic. No abrasion, contusion or laceration. Right Ear: Tympanic membrane, ear canal and external ear normal. Decreased hearing noted. No drainage, swelling or tenderness. No middle ear effusion. Left Ear: Tympanic membrane, ear canal and external ear normal. Decreased hearing noted. No drainage, swelling or tenderness. No middle ear effusion. Nose: Congestion present. No nasal deformity, mucosal edema or rhinorrhea. Right Sinus: No maxillary sinus tenderness or frontal sinus tenderness. Left Sinus: No maxillary sinus tenderness or frontal sinus tenderness. Mouth/Throat: Dentition: Normal dentition. No dental caries or dental abscesses. Pharynx: Oropharyngeal exudate, posterior oropharyngeal erythema and uvula swelling present. Comments: Bilateral tonsils surgically absent. Appropriate post surgical changes present, no retaining tonsillar tissue present to bilateral tonsillar beds, no active bleeding or signs of infection. Eyes: General: No scleral icterus. Right eye: No discharge. Left eye: No discharge. Conjunctiva/sclera: Conjunctivae normal. Right eye: Right conjunctiva is not injected. Left eye: Left conjunctiva is not injected. Neck: Thyroid: No thyromegaly. Pulmonary: Effort: Pulmonary effort is normal. No respiratory distress. Musculoskeletal: General: Normal range of motion. Cervical back: Full passive range of motion without pain, normal range of motion and neck supple. No rigidity. Normal range of motion. Lymphadenopathy: Head: Right side of head: No submental, submandibular, tonsillar, preauricular or posterior auricular adenopathy. Left side of head: No submental, submandibular, tonsillar, preauricular or posterior auricular adenopathy. Cervical: No cervical adenopathy. Skin: General: Skin is warm and dry. Neurological: Mental Status: She is alert and oriented to person, place, and time. Psychiatric: Speech: Speech normal. Behavior: Behavior normal. Thought Content: Thought content normal. Judgment: Judgment normal. Assessment and Plan: Lima Jordan is a 50 y.o. y/o female who presents with postop tonsillectomy. Upon exam there are normal post surgical changes present, white/burnett granulation tissue present to bilateral tonsillar beds, no active bleeding or signs of infection. Soft palate rises midline upon exam. Pathology report reveals Reactive lymphoid hyperplasia. Unfortunately patient did not tolerate Hycet liquid pain medication and dumped medication. Asking for different medication in office today,will be provided short course of Tramadol, and educated may use tylenol in combination. Patient educated that pain and risk of bleeding is highest for first 2 weeks, if bleeding occurs come to officeif during business hours or go to ER if outside business hours. Patient educated to continue to drink plenty of fluids and may advance activity and diet as tolerated, voiced understanding. Work release provided in office today per patient request, will be released to return to work on 11/28/20. Follow-up in [address] Banks for postop evaluation or sooner with any new or changing concerns. Diagnoses and all orders for this visit: Status post tonsillectomy Postoperative pain - traMADoL (ULTRAM) 50 mg tablet; Take 1 (one) tablet (50 mg total) by mouth every 6 (six) hours asneeded for pain (Days supply per fill: 5) . Postoperative visit Chaitanya Mauricio CNP 11/20/20 documented in this [id number] Miscellaneous Notes* Addendum Note - Alban Frederick MD - 11/14/2020 6:00 PM EDT Addendum created 11/14/201799 by Alban Frederick MD Cosign clinical note documented in this [id number] Surgical operation note* Anesthesia Postprocedure Evaluation - Alban Frederick MD - 11/13/2020 1:03 PM EDT Images from the original note were not included. Anesthesia Post Evaluation PACU Vitals 11/13/2020 1147 - 11/13/2020 1150 11/13/2020 1149 BP: 130/83 Temp: 35.9 C Pulse: 96 Resp: 16 SpO2: 98 % MAP (mmHg): 102 * * Refer to nursing documentation for PACU vitals * * Patient participation: patient participated Mental status: sleepy but conscious Pain management: adequate Anesthetic complications: no Nausea / vomiting: no Respiratory / airway status: airway patent and nasal cannula Postoperative hydration: acceptable Comment: Patient has satisfactorily recovered from her anesthetic. * Anesthesia Procedure Notes - ÁNGEL Sanchez - 11/13/2020 11:18 AM EDT Associated Order(s): ETT Airway ETT Airway Mask ventilation: ventilated by mask Technique: direct laryngoscopy Type: cuffed oral Tube size: 7 mm Final laryngoscope: Blanca 2 Location: oral Final grade: 1 Insertion attempts: 2 Laryngoscope (1st attempt): Blanca and 2 Grade view (1st attempt): 1 Placement verification: auscultation, symmetrical chest wall movement and end tidal CO2 Secured at: 23 cm (measured from the lips) Secured by: tape Bite block: soft Lip/tooth/tongue trauma: no *See MAR for medication administration * Anesthesia Preprocedure Evaluation - Alban Frederick MD - 11/13/2020 9:57 AM EDT ANESTHESIA PREPROCEDURE EVALUATION Anesthesia Plan ASA: 3 Type: general Airway: endotracheal tube Induction: intravenous Anesthetic plan and risks as outlined in the consent discussed with: patient and spouse Plan discussed with: CAA and SRNA Physical Exam Airway Mallampati: II TM Distance: >3 FB Neck ROM: full Mouth opening: >3 FB Cardiovascular - normal Rhythm: regular Pulmonary - normal Breath sounds are clear to auscultation Neurological Mental Status: alert Upper extremities strength is normal and sensation is normal Lower extremities: strength is normal and sensation is normal Dental Dental exam is normal and age appropriate Review of Systems / Medical History - Reviewed: patient summary, anesthesia history, nursing notes, medical history, H&P and labs /results Neurological / Psychological Positive: TIA, CVA headaches Cardiovascular Positive: well controlled hypertension hyperlipidemia Gastrointestinal / Hepatic / Renal NPO Status > 8 hours Positive: GERD and well controlled Endocrine / Musculoskeletal Positive: hypothyroidism, anemia, chronic pain documented in this [id number] Procedure anesthesia Narrative * Procedure Summary Procedure Name Responsible Anesthesiologist Anesthesia Start Time Anesthesia Stop Time TONSILLECTOMY (Bilateral Throat) Alban Frederick MD 11/13/20 1058 11/13/20 1150 Events Date Time Event Comment 11/13/2020 1046 1049 AN Equip Check 1058 An Start 1058 Patient Verification 1100 An Start Data 1103 An Induction 1106 An Intubation 1111 Anesthesia Ready 1137 Emergence [facility] OR 07 1144 An Extubation 1147 an stop data 1149 Handoff 1150 An Stop Meds Name Total midazolam 2 mg fentaNYL 100 mcg lidocaine 2% 50 mg propofol 150 mg dexamethasone 4 mg ondansetron 4 mg sugammadex 200 mg clindamycin (CLEOCIN) IVPB 300 mg (premi x) 300 mg acetaminophen 1,000 mg lactated Ringers infusion 800 mL * Agents No agents on file. * Blood No blood administrations on file. Lines, Drains, and Airways Type Details Placement Removal Wound 11/13/20; 1118; Surg ical Wou; Mouth 11/13/20 1118 by Princess Quijano RN Peripheral IV Placement Date: 09/26; Placement Time: 1048; Orientation: Posterior, Right; Location: Hand; Site Prep: Chlorhexidine ; Local Anes: None; Inserted by: Suellen Walker RN; Patient Tolerance: Tolerated well; Removal Date: 11/13/20; Removal Time: 1404; Removal Reason: Per order 11/13/20 1048 by Jennifer Walker RN 11/13/20 1404 by Venecia De Leon RN ETT Placement Date: 09/26; Placement Time: 1118 (created via procedure documentation); Mask Ventilation: Ventilated by mask; Type: Cuffed, Oral; Tube Size: 7 mm; Grade View: 1; Insertion Attempts: 2; Removal Date: 11/13/20; Removal Time: 1144 11/13/20 1118 by ÁNGEL Sanchez 11/13/20 1144 by ÁNGEL Sanchez documented in this encounter [id number] Instructions* Patient Instructions* David Hawthorne MD - 11/05/2020 10:03 AM EDT Images from the original note were not included. Tonsillectomy: Before Your Surgery What is a tonsillectomy? A tonsillectomy is surgery to remove the tonsils. Sometimes the adenoids are removed at the same time. These are above the tonsils and behind the nose. Your doctor will do the surgery through your mouth. You will be asleep. Most people go home that same day. How do you prepare for surgery? Surgery can be stressful. This information will help you understand what you can expect. And it will help you safely prepare for surgery. Preparing for surgery Be sure you have someone to take you home. Anesthesia and pain medicine will make it unsafe for youto drive or get home on your own. Understand exactly what surgery is planned, along with the risks, benefits, and other options. Tell your doctor ALL the medicines, vitamins, supplements, and herbal remedies you take. Some may increase the risk of problems during your surgery. Your doctor will tell you if you should stop taking any of them before the surgery and how soon to do it. If you take aspirin or some other blood thinner, ask your doctor if you should stop taking it before your surgery. Make sure that you understand exactly what your doctor wants you to do. These medicines increase the risk of bleeding. Make sure your doctor and the hospital have a copy of your advance directive. If you don't have one, you may want to prepare one. It lets others know your health care wishes. It's a good thing to have before any type of surgery or procedure. What happens on the day of surgery? Follow the instructions exactly about when to stop eating and drinking. If you don't, your surgery may be canceled. If your doctor told you to take your medicines on the day of surgery, take them with only a sip of water. Take a bath or shower before you come in for your surgery. Do not apply lotions, perfumes, deodorants, or nail paraguayan. Take off all jewelry and piercings. And take out contact lenses, if you wear them. At the hospital or surgery center Bring a picture ID. The area for surgery is often marked to make sure there are no errors. You will be kept comfortable and safe by your anesthesia provider. You will be asleep during the surgery. The surgery will take less than an hour. When should you call your doctor? You have questions or concerns. You don't understand how to prepare for your surgery. You become ill before the surgery (such as fever, flu, or a cold). You need to reschedule or have changed your mind about having the surgery. Where can you learn more? Log into your personal health record on?[email or web address]?and [email or web address]?in the Education box to learn more about Tonsillectomy: Before Your Surgery. Current as of: February 08, 2020 Content Version: 12.9 [employer]. Care instructions adapted under license by your healthcare professional. If you have questions about a medical condition or this instruction, always ask your healthcare professional. [employer] disclaims any warranty or liability for your use of this information. documented in this [id number] Instructions* Patient Instructions* David Hawthorne MD - 11/05/2020 10:03 AM EDT Images from the original note were not included. Tonsillectomy: Before Your Surgery What is a tonsillectomy? A tonsillectomy is surgery to remove the tonsils. Sometimes the adenoids are removed at the same time. These are above the tonsils and behind the nose. Your doctor will do the surgery through your mouth. You will be asleep. Most people go home that same day. How do you prepare for surgery? Surgery can be stressful. This information will help you understand what you can expect. And it will help you safely prepare for surgery. Preparing for surgery Be sure you have someone to take you home. Anesthesia and pain medicine will make it unsafe for youto drive or get home on your own. Understand exactly what surgery is planned, along with the risks, benefits, and other options. Tell your doctor ALL the medicines, vitamins, supplements, and herbal remedies you take. Some may increase the risk of problems during your surgery. Your doctor will tell you if you should stop taking any of them before the surgery and how soon to do it. If you take aspirin or some other blood thinner, ask your doctor if you should stop taking it before your surgery. Make sure that you understand exactly what your doctor wants you to do. These medicines increase the risk of bleeding. Make sure your doctor and the hospital have a copy of your advance directive. If you don't have one, you may want to prepare one. It lets others know your health care wishes. It's a good thing to have before any type of surgery or procedure. What happens on the day of surgery? Follow the instructions exactly about when to stop eating and drinking. If you don't, your surgery may be canceled. If your doctor told you to take your medicines on the day of surgery, take them with only a sip of water. Take a bath or shower before you come in for your surgery. Do not apply lotions, perfumes, deodorants, or nail paraguayan. Take off all jewelry and piercings. And take out contact lenses, if you wear them. At the hospital or surgery center Bring a picture ID. The area for surgery is often marked to make sure there are no errors. You will be kept comfortable and safe by your anesthesia provider. You will be asleep during the surgery. The surgery will take less than an hour. When should you call your doctor? You have questions or concerns. You don't understand how to prepare for your surgery. You become ill before the surgery (such as fever, flu, or a cold). You need to reschedule or have changed your mind about having the surgery. Where can you learn more? Log into your personal health record on?https://[email or web address]?and [email or web address]?in the Education box to learn more about Tonsillectomy: Before Your Surgery. Current as of: February 08, 2020 Content Version: 12.9 [employer]. Care instructions adapted under license by your healthcare professional. If you have questions about a medical condition or this instruction, always ask your healthcare professional. [employer] disclaims any warranty or liability for your use of this information. documented in this [id number] History of Present illness Narrative* David Hawthorne MD - 11/05/2020 10:01 AM EDT Subjective: Patient ID: Lima Jordan is a 50 y.o. female. Chief Complaint Patient presents with Discuss Tonsillectomy HPI kind referral for my evaluation due to tonsillar problems. Reportedly, patient had been suffering from tonsillar stones buildup for many years. They are getting almost the size of the dime, generating dysphagia, feeling of choking, halitosis, regional lymphadenopathy, fatigue. Patient admits to multiple allergies but has not had many of the confirmed strep throat infections in the past she is not sure but might have a nighttime snoring, daytime somnolence, episodically low-grade fever, affecting her professional and family life. The following portions of the patient's history were reviewed and updated as appropriate: allergies, current medications, past family history, past medical history, past social history, past surgicalhistory and problem list. Review of Systems Constitutional: Positive for activity change, appetite change and fatigue. Negative for chills, diaphoresis, fever and unexpected weight change. HENT: Positive for congestion, ear pain, sore throat and trouble swallowing. Negative for dental problem, drooling, ear discharge, facial swelling, hearing loss, mouth sores, nosebleeds, postnasal drip, rhinorrhea, sinus pressure, sneezing, tinnitus and voice change. Eyes: Negative for pain, discharge, itching and visual disturbance. Respiratory: Positive for apnea, cough and choking. Negative for chest tightness, shortness of breath, wheezing and stridor. Cardiovascular: Negative. Gastrointestinal: Negative. Endocrine: Negative for cold intolerance, heat intolerance and polyuria. Genitourinary: Negative. Musculoskeletal: Positive for arthralgias, myalgias and neck pain. Negative for back pain, gait problem, joint swelling and neck stiffness. Skin: Negative. Allergic/Immunologic: Positive for environmental allergies. Negative for immunocompromised state. Neurological: Negative. Hematological: Positive for adenopathy. Does not bruise/bleed easily. Psychiatric/Behavioral: Negative. Objective: BP 121/84 (BP Location: Left arm, Patient Position: Sitting, BP Cuff Size: Adult) Pulse 75 Ht 4' 7 Wt 61.7 kg (136 lb) SpO2 98% BMI 31.61 kg/m Physical Exam Constitutional: General: She is not in acute distress. Appearance: She is well-developed. She is not diaphoretic. HENT: Head: Normocephalic and atraumatic. Jaw: No trismus. Right Ear: Hearing, tympanic membrane, ear canal and external ear normal. Left Ear: Hearing, tympanic membrane, ear canal and external ear normal. Nose: Mucosal edema and rhinorrhea present. No nasal deformity, septal deviation or laceration. Right Sinus: No maxillary sinus tenderness or frontal sinus tenderness. Left Sinus: No maxillary sinus tenderness or frontal sinus tenderness. Mouth/Throat: Mouth: No lacerations or oral lesions. Dentition: Normal dentition. Does not have dentures. No dental caries or dental abscesses. Pharynx: Uvula midline. Oropharyngeal exudate and posterior oropharyngeal erythema present. No uvula swelling. Tonsils: No tonsillar abscesses (Symmetric palatine tonsils stage 3+ hypertrophy with tonsillar stones in the criptic pockets). Eyes: Conjunctiva/sclera: Conjunctivae normal. Pupils: Pupils are equal, round, and reactive to light. Neck: Thyroid: No thyroid mass. Vascular: No JVD. Trachea: Trachea normal. No tracheal deviation. Pulmonary: Breath sounds: No stridor. Musculoskeletal: Cervical back: Normal range of motion and neck supple. Lymphadenopathy: Head: Right side of head: Tonsillar adenopathy present. No submental, submandibular, preauricular, posterior auricular or occipital adenopathy. Left side of head: Tonsillar adenopathy present. No submental, submandibular, preauricular, posterior auricular or occipital adenopathy. Cervical: Cervical adenopathy present. Assessment/Plan: Patient meets criteria and was offered tonsillectomy possible adenoidectomy to address the above mentioned problems, persisting and reoccurring, despite adequate medical management by PCP. Other alternative ways, risks including but not limited to post surgical bleeding and dehydration requiring hospitalization and bleeding control under general anesthesia, infection, as well as benefits of elimination of the source of infection, improvement of the breathing patterns were discussed extensively. All questions were answered. Patient expressed comprehensive understanding, are willing to proceed with offered surgery, informal consent was signed and witnessed. Surgery will be scheduled in the nearest future. 1. Chronic tonsillitis and adenoiditis Case Request Operating Room: TONSILLECTOMY AND possible ADENOIDECTOMY Height and weight Vital signs Intermittent pneumatic compression device Bilat LE oxymetazoline (AFRIN) 0.05 % nasal spray 2 spray scopolamine (TRANSDERM-SCOP) 1 mg over 3 days patch 1 patch sodium chloride (NS) 0.9 % irrigation solution 1,000 mL clindamycin (CLEOCIN) 300 mg in sodium chloride 0.9 % (NS) 50 mL IVPB 2. Tonsil stone Orders Placed This Encounter Procedures Case Request Operating Room: TONSILLECTOMY AND possible ADENOIDECTOMY documented in this [id number] History of Present illness Narrative* David Hawthorne MD - 11/05/2020 10:01 AM EDT Subjective: Patient ID: Lima Jordan is a 50 y.o. female. Chief Complaint Patient presents with Discuss Tonsillectomy HPI kind referral for my evaluation due to tonsillar problems. Reportedly, patient had been suffering from tonsillar stones buildup for many years. They are getting almost the size of the dime, generating dysphagia, feeling of choking, halitosis, regional lymphadenopathy, fatigue. Patient admits to multiple allergies but has not had many of the confirmed strep throat infections in the past she is not sure but might have a nighttime snoring, daytime somnolence, episodically low-grade fever, affecting her professional and family life. The following portions of the patient's history were reviewed and updated as appropriate: allergies, current medications, past family history, past medical history, past social history, past surgicalhistory and problem list. Review of Systems Constitutional: Positive for activity change, appetite change and fatigue. Negative for chills, diaphoresis, fever and unexpected weight change. HENT: Positive for congestion, ear pain, sore throat and trouble swallowing. Negative for dental problem, drooling, ear discharge, facial swelling, hearing loss, mouth sores, nosebleeds, postnasal drip, rhinorrhea, sinus pressure, sneezing, tinnitus and voice change. Eyes: Negative for pain, discharge, itching and visual disturbance. Respiratory: Positive for apnea, cough and choking. Negative for chest tightness, shortness of breath, wheezing and stridor. Cardiovascular: Negative. Gastrointestinal: Negative. Endocrine: Negative for cold intolerance, heat intolerance and polyuria. Genitourinary: Negative. Musculoskeletal: Positive for arthralgias, myalgias and neck pain. Negative for back pain, gait problem, joint swelling and neck stiffness. Skin: Negative. Allergic/Immunologic: Positive for environmental allergies. Negative for immunocompromised state. Neurological: Negative. Hematological: Positive for adenopathy. Does not bruise/bleed easily. Psychiatric/Behavioral: Negative. Objective: BP 121/84 (BP Location: Left arm, Patient Position: Sitting, BP Cuff Size: Adult) Pulse 75 Ht 4' 7 Wt 61.7 kg (136 lb) SpO2 98% BMI 31.61 kg/m Physical Exam Constitutional: General: She is not in acute distress. Appearance: She is well-developed. She is not diaphoretic. HENT: Head: Normocephalic and atraumatic. Jaw: No trismus. Right Ear: Hearing, tympanic membrane, ear canal and external ear normal. Left Ear: Hearing, tympanic membrane, ear canal and external ear normal. Nose: Mucosal edema and rhinorrhea present. No nasal deformity, septal deviation or laceration. Right Sinus: No maxillary sinus tenderness or frontal sinus tenderness. Left Sinus: No maxillary sinus tenderness or frontal sinus tenderness. Mouth/Throat: Mouth: No lacerations or oral lesions. Dentition: Normal dentition. Does not have dentures. No dental caries or dental abscesses. Pharynx: Uvula midline. Oropharyngeal exudate and posterior oropharyngeal erythema present. No uvula swelling. Tonsils: No tonsillar abscesses (Symmetric palatine tonsils stage 3+ hypertrophy with tonsillar stones in the criptic pockets). Eyes: Conjunctiva/sclera: Conjunctivae normal. Pupils: Pupils are equal, round, and reactive to light. Neck: Thyroid: No thyroid mass. Vascular: No JVD. Trachea: Trachea normal. No tracheal deviation. Pulmonary: Breath sounds: No stridor. Musculoskeletal: Cervical back: Normal range of motion and neck supple. Lymphadenopathy: Head: Right side of head: Tonsillar adenopathy present. No submental, submandibular, preauricular, posterior auricular or occipital adenopathy. Left side of head: Tonsillar adenopathy present. No submental, submandibular, preauricular, posterior auricular or occipital adenopathy. Cervical: Cervical adenopathy present. Assessment/Plan: Patient meets criteria and was offered tonsillectomy possible adenoidectomy to address the above mentioned problems, persisting and reoccurring, despite adequate medical management by PCP. Other alternative ways, risks including but not limited to post surgical bleeding and dehydration requiring hospitalization and bleeding control under general anesthesia, infection, as well as benefits of elimination of the source of infection, improvement of the breathing patterns were discussed extensively. All questions were answered. Patient expressed comprehensive understanding, are willing to proceed with offered surgery, informal consent was signed and witnessed. Surgery will be scheduled in the nearest future. 1. Chronic tonsillitis and adenoiditis Case Request Operating Room: TONSILLECTOMY AND possible ADENOIDECTOMY Height and weight Vital signs Intermittent pneumatic compression device Bilat LE oxymetazoline (AFRIN) 0.05 % nasal spray 2 spray scopolamine (TRANSDERM-SCOP) 1 mg over 3 days patch 1 patch sodium chloride (NS) 0.9 % irrigation solution 1,000 mL clindamycin (CLEOCIN) 300 mg in sodium chloride 0.9 % (NS) 50 mL IVPB 2. Tonsil stone Orders Placed This Encounter Procedures Case Request Operating Room: TONSILLECTOMY AND possible ADENOIDECTOMY documented in this [id number] History of Present illness Narrative* Tierney Saleem, H[place]ARY - 10/31/2020 9:28 AM EDT Images from the original note were not included. ENT Clinic Follow up Note History of Present Illness Lima Jordan is a 50 y.o. y/o female presents for 4 week follow up regarding bilateral acute otitis media, with decreased hearing of the left ear. She is accompanied today by her daughter. She is a known patient in the clinic that was seen 4 weeks ago for bilateral acute otitis media, worse on the left side. Patient was treated with Augmentin twice daily for 10 days. She has known environmental & seasonal allergies. She was encouraged to use Dominga & Flonase daily, instead of as needed to help symptoms resolve. Patient presents today for evaluation of symptom improvement with a possible hearing evaluation. Patient denies current ear pain, pressure or drainage from the ears. She continues to suffer from decreased hearing to the left ear & feels like her left ear needs to pop. Right ear has returned to normal. She is taking Dominga & Flonase daily as directed. 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 She reports a long standing history of left sided tinnitus that is fairly constant & has worsened since her recent ear infection. Allergies Allergen Reactions Bee Venom Protein (Honey Bee) Hives Asa [Aspirin] GI Intolerance Caffeine Other (See Comments) anxiety Ct: Iodinated Contrast- Oral And Iv Dye Hives Morphine Hives Oxycodone-Acetaminophen Stated I can't function Penicillins Hives Red Dye Sulfamethoxazole GI Intolerance GI problems Bactrim Trimethoprim GI Intolerance GI problems Bactrim Past Medical History: Diagnosis Date Anemia Arthritis hips Endometriosis 1996 Family history of colon cancer Hypertension Hypothyroid Low back pain 06/26/2011 Migraine 06/26/2011 Migraines Mixed hyperlipidemia 06/26/2011 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 Spina bifida occulta 06/26/2011 TIA (transient ischemic attack) Vitamin D deficiency 12/21/2013 Social History Socioeconomic History Marital status: Spouse name: Not on file Number of children: Not on file Years of education: Not on file Highest education level: Not on file Occupational History Not on file Tobacco Use Smoking status: Never Smoker Smokeless tobacco: Never Used Vaping Use Vaping Use: Never used Substance and Sexual Activity Alcohol use: Yes Comment: SOCIALLY Drug use: No Sexual activity: Yes Partners: Male Other Topics Concern Not on file Social History Narrative Not on file Social Determinants of Health Financial Resource Strain: Difficulty of Paying Living Expenses: Not on file Food Insecurity: Worried About Running Out of Food in the Last Year: Not on file Ran Out of Food in the Last Year: Not on file Transportation Needs: Lack of Transportation (Medical): Not on file Lack of Transportation (Non-Medical): Not on file Physical Activity: Days of Exercise per Week: Not on file Minutes of Exercise per Session: Not on file Stress: Feeling of Stress : Not on file Social Connections: Frequency of Communication with Friends and Family: Not on file Frequency of Social Gatherings with Friends and Family: Not on file Attends Latter-Day Services: Not on file Active Member of Clubs or Organizations: Not on file Attends Club or Organization Meetings: Not on file Marital Status: Not on file Housing Stability: Unable to Pay for Housing in the Last Year: Not on file Number of Places Lived in the Last Year: Not on file Unstable Housing in the Last Year: Not on file Family History Problem Relation Age of Onset Heart disease Mother Hypertension Mother Heart attack Mother Stroke Mother Hypertension Father Heart disease Father Diabetes Father Stroke Father Parkinson's Brother Alcohol abuse Brother Colon cancer Maternal Grandmother COPD Paternal Grandmother COPD Paternal Grandfather Past Surgical History: Procedure Laterality Date CARPAL TUNNEL RELEASE Right 11/2011 SECTION CHOLECYSTECTOMY 04/2017 COLONOSCOPY 2017 CYST REMOVAL 09/2016 back HYSTERECTOMY REDUCTION MAMMAPLASTY 02/2020 The following systems were reviewed and revealed the following in addition to any already discussedin the HPI: Review of Systems Constitutional: Negative for chills, fever and malaise/fatigue. HENT: Positive for congestion, hearing loss (decreased hearing bilaterally, worse on the left side,feels under water, like her ear needs to pop ) and tinnitus (primarily on the left side ). Negativefor ear discharge ( ), ear pain (resolved ), nosebleeds and sore throat. Eyes: Negative for discharge, pain, photophobia and redness. Cardiovascular: Negative for chest pain, leg swelling, near-syncope and syncope. Respiratory: Negative for cough, shortness of breath, sleep disturbances due to breathing and snoring. Endocrine: Negative for cold intolerance and heat intolerance. Hypothyroidism Hematologic/Lymphatic: Negative for adenopathy and bleeding problem. Does not bruise/bleed easily. Skin: Negative for color change, dry skin, itching and rash. Musculoskeletal: Positive for arthritis, back pain, joint pain (hips) and stiffness. Negative for falls, joint swelling, muscle cramps and muscle weakness. Gastrointestinal: Negative for nausea and vomiting. Neurological: Positive for headaches. Negative for dizziness, light-headedness, loss of balance, numbness, seizures, tremors, vertigo and weakness. Hx of TIA, hx of spina bifida Psychiatric/Behavioral: Negative for altered mental status and substance abuse. The patient is not nervous/anxious. Allergic/Immunologic: Positive for environmental allergies (worse in the spring usually takes Dominga & Flonase as needed, currently taking them daily ). Negative for persistent infections ( ). Physical Exam Vitals: 10/31/20 0904 BP: 121/80 BP Location: Left arm Patient Position: Sitting BP Cuff Size: Adult Pulse: 82 SpO2: 99% Weight: 61.7 kg (136 lb) Height: 4' 7 Physical Exam Constitutional: General: She is not in acute distress. Appearance: Normal appearance. She is well-groomed. She is not diaphoretic. HENT: Head: Normocephalic and atraumatic. Right Ear: Tympanic membrane, ear canal and external ear normal. Decreased hearing noted. No drainage, swelling or tenderness. No middle ear effusion. No foreign body. No mastoid tenderness. Tympanicmembrane has normal mobility. Left Ear: Tympanic membrane, ear canal and external ear normal. Decreased hearing noted. Tendernesspresent. No drainage or swelling. No middle ear effusion. No foreign body. No mastoid tenderness. Tympanic membrane has normal mobility. Nose: Mucosal edema, congestion and rhinorrhea present. No nasal deformity, septal deviation or laceration. Rhinorrhea is clear. Right Turbinates: Enlarged and swollen. Left Turbinates: Enlarged and swollen. Right Sinus: No maxillary sinus tenderness or frontal sinus tenderness. Left Sinus: No maxillary sinus tenderness or frontal sinus tenderness. Mouth/Throat: Lips: [place]. Mouth: Mucous membranes are moist. Pharynx: Oropharynx is clear. Uvula midline. No oropharyngeal exudate. Tonsils: No tonsillar exudate or tonsillar abscesses. 3+ on the right. 2+ on the left. Eyes: General: Right eye: No discharge. Left eye: No discharge. Neck: Thyroid: No thyroid mass or thyromegaly. Trachea: Trachea normal. No tracheal deviation. Musculoskeletal: Cervical back: Neck supple. Lymphadenopathy: Head: Right side of head: No submental or submandibular adenopathy. Left side of head: No submental or submandibular adenopathy. Cervical: No cervical adenopathy. Skin: General: Skin is warm and dry. Neurological: Mental Status: She is alert and oriented to person, place, and time. Gait: Gait is intact. Psychiatric: Mood and Affect: Affect normal. Procedure: Audiometry: mild flat sensorineural hearing loss bilaterally Tympanometry: Right: Type A Left: Type A Assessment and Plan: Lima Jordan is a 50 y.o. y/o female who presents for 4 week follow up regarding bilateral acute otitis media, with decreased hearing of the left ear. Upon physical exam previous otitis media has resolved. Audiometry was performed due to ongoing concerns of decreased hearing to the left ear & significant risk factors for hearing loss. Audiometry revealed mild flat sensorineural hearing loss bilaterally & type A tympanograms. Patient was educated about the results of hearing evaluation & despite her sensation of worsened hearing on the left side, both ears are consistent. She is experiencing a mild form of left ETD. Known chronic allergic rhinitis. Patient was encourage to continue Dominga & Flonase daily until left ear pops & she feels it has fully returned to normal. She may use OTC nasal saline spray as needed to help with moisture. Once symptoms improve she may decrease allergy medication back to as needed. Upon physical exam there is +3 chronic tonsillar hypertrophy noted, cryptic in appearance with several small tonsil stones noted. Patient would like to have tonsillectomy performed to help with her chronic tonsil stones. I agree that she would benefit from tonsillectomy & possible adenoidectomyto also help with tonsil stones in addition her allergies & recurrent ear infections may improve. Follow up in 3 months with me for evaluation of improvement in her allergies & left ear pressure. She will be scheduled with Dr Banks in the near future to discuss T & A. Patient verbalized understanding & is in agreement with the plan of care. 1. Hearing loss, unspecified hearing loss type, unspecified laterality - Ambulatory referral to Audiology; Future 2. Chronic allergic rhinitis Diagnoses and all orders for this visit: Sensorineural hearing loss (SNHL) of both ears - Ambulatory referral to Audiology; Future Chronic allergic rhinitis Chronic tonsillar hypertrophy Tonsil stone Tierney Saleem CNP documented in this [id number] History of Present illness Narrative* Tierney Saleem CNP - 10/02/2020 9:54 AM EDT Images from the original note were not included. ENT Clinic Follow up Note History of Present Illness Lima Jordan is a 49 y.o. y/o female presents for follow up regarding Left ear pain with decreased hearing. She is a known patient in the clinic who presents today for a new concern of bilateral ear pain, pressure & decreased hearing, worse on the left side. States she developed left side neck swelling. Patient reports symptoms started on 09/26/20. She reports she had difficulty getting in to be seen in our office & the pain was severe. She called off work last week due to the pain & hearing loss. She is requesting a work note for missed time off work. States due to the severity of symptoms & being desperate she took some of her daughters leftover amoxicillin. Reports she took approximately 5 days worth of Amoxicillin & it has provided mild relief, however, symptoms have not completely resolved. She continues with bilateral ear pain, worse on the left side & the sensation of being underwater & her ears feel like they need to pop. Swelling to the left side of the neck has started toimprove. She has known seasonal allergies & currently takes Dominga & Flonase as needed, approximately 2 times per week. She reports her allergies have been worse than normal this [place] She denies any recent fevers, nausea, vomiting or purulent sinus drainage. Patient has history of recurrent tonsil stones that are annoying & bothersome. Reports they areusually the size of a eraser head, but last night she got one out that was the size of a dime &it was painful. She would like to discuss surgical removal of her tonsils to help with the tonsil stones & throat discomfort. Allergies Allergen Reactions Bee Venom Protein (Honey Bee) Hives Asa [Aspirin] GI Intolerance Caffeine Other (See Comments) anxiety Ct: Iodinated Contrast- Oral And Iv Dye Hives Morphine Hives Oxycodone-Acetaminophen Stated I can't function Penicillins Hives Red Dye Sulfamethoxazole GI Intolerance GI problems Bactrim Trimethoprim GI Intolerance GI problems Bactrim Past Medical History: Diagnosis Date Anemia Arthritis hips Endometriosis 1996 Family history of colon cancer Hypertension Hypothyroid Low back pain 06/26/2011 Migraine 06/26/2011 Migraines Mixed hyperlipidemia 06/26/2011 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 Spina bifida occulta 06/26/2011 TIA (transient ischemic attack) Vitamin D deficiency 12/21/2013 Social History Socioeconomic History Marital status: Spouse name: Not on file Number of children: Not on file Years of education: Not on file Highest education level: Not on file Occupational History Not on file Tobacco Use Smoking status: Never Smoker Smokeless tobacco: Never Used Vaping Use Vaping Use: Never used Substance and Sexual Activity Alcohol use: Yes Comment: SOCIALLY Drug use: No Sexual activity: Yes Partners: Male Other Topics Concern Not on file Social History Narrative Not on file Social Determinants of Health Financial Resource Strain: Difficulty of Paying Living Expenses: Food Insecurity: Worried About Running Out of Food in the Last Year: Ran Out of Food in the Last Year: Transportation Needs: Lack of Transportation (Medical): Lack of Transportation (Non-Medical): Physical Activity: Days of Exercise per Week: Minutes of Exercise per Session: Stress: Feeling of Stress : Social Connections: Frequency of Communication with Friends and Family: Frequency of Social Gatherings with Friends and Family: Attends Latter-Day Services: Active Member of Clubs or Organizations: Attends Club or Organization Meetings: Marital Status: Family History Problem Relation Age of Onset Heart disease Mother Hypertension Mother Heart attack Mother Stroke Mother Hypertension Father Heart disease Father Diabetes Father Stroke Father Parkinson's Brother Alcohol abuse Brother Colon cancer Maternal Grandmother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 right hip pain- Primary Acquired hypothyroidism Unspecified hypothyroidism Mixed hyperlipidemia Essential hypertension- Primary Unspecified essential hypertension Hypothyroidism, unspecified type Postartificial menopausal syndrome Symptomatic states associated with artificial menopause Chronic pain of both ears- Primary Postartificial menopausal syndrome Symptomatic states associated with artificial menopause Essential hypertension Unspecified essential hypertension Large mass of breast Chronic right hip pain- Primary Chronic right-sided low back pain without sciatica Essential hypertension Unspecified essential hypertension Hypothyroidism, unspecified type B12 deficiency Preop examination Unspecified pre-operative examination Hypothyroidism, unspecified type Essential hypertension Unspecified essential hypertension TIA (transient ischemic attack) Unspecified transient cerebral ischemia Chronic tonsillitis and adenoiditis Migraine with aura and without status migrainosus, not intractable- Primary Hypothyroidism, unspecified type Mixed hyperlipidemia Primary hypertension Unspecified essential hypertension Vitamin D deficiency Encounter for screening for cardiovascular disorders B12 deficiency Epigastric pain Abdominal pain, epigastric Chronic right-sided low back pain without sciatica Primary hypertension Unspecified essential hypertension Hypothyroidism, unspecified type Postartificial menopausal syndrome Symptomatic states associated with artificial menopause Encounter for screening for malignant neoplasm of breast, unspecified screening modality Hair loss Unspecified alopecia Fibromyalgia- Primary Unspecified myalgia and myositis Migraine without status migrainosus, not intractable, unspecified migraine type Primary hypertension- Primary Unspecified essential hypertension Hypothyroidism, unspecified type Postartificial menopausal syndrome Symptomatic states associated with artificial menopause Iron deficiency Disorders of iron metabolism Migraine without status migrainosus, not intractable, unspecified migraine type Migraine with aura and without status migrainosus, not intractable- Primary Fibromyalgia Unspecified myalgia and myositis Chronic right hip pain Stress incontinence of urine- Primary Hypothyroidism, unspecified type Primary hypertension Unspecified essential hypertension Preop examination Unspecified pre-operative examination Psychophysiological insomnia Persistent disorder of initiating or maintaining sleep Primary hypertension Unspecified essential hypertension Postartificial menopausal syndrome Symptomatic states associated with artificial menopause Hypothyroidism, unspecified type Encounter for screening for malignant neoplasm of breast, unspecified screening modality Cognitive change Primary hypertension- Primary Unspecified essential hypertension Postartificial menopausal syndrome Symptomatic states associated with artificial menopause Hypothyroidism, unspecified type Symptomatic abdominal panniculus Mixed hyperlipidemia Sacral back pain- Primary Disorders of sacrum Sacroiliac joint dysfunction of left side Left hip pain Pain in joint, pelvic region and thigh documented in this encounter [facility] note* Diagnosis Chest pain- Primary Unspecified chest pain Essential hypertension with goal blood pressure less than 130/80 Cerebrovascular accident (CVA), unspecified mechanism (HCC) Morbid obesity, unspecified obesity type (HCC) Chronic right hip pain- Primary Acquired hypothyroidism Unspecified hypothyroidism Mixed hyperlipidemia Essential hypertension- Primary Unspecified essential hypertension Hypothyroidism, unspecified type Postartificial menopausal syndrome Symptomatic states associated with artificial menopause Chronic pain of both ears- Primary Postartificial menopausal syndrome Symptomatic states associated with artificial menopause Essential hypertension Unspecified essential hypertension Large mass of breast Chronic right hip pain- Primary Chronic right-sided low back pain without sciatica Essential hypertension Unspecified essential hypertension Hypothyroidism, unspecified type B12 deficiency Preop examination Unspecified pre-operative examination Hypothyroidism, unspecified type Essential hypertension Unspecified essential hypertension TIA (transient ischemic attack) Unspecified transient cerebral ischemia Chronic tonsillitis and adenoiditis Migraine with aura and without status migrainosus, not intractable- Primary Hypothyroidism, unspecified type Mixed hyperlipidemia Primary hypertension Unspecified essential hypertension Vitamin D deficiency Encounter for screening for cardiovascular disorders B12 deficiency Epigastric pain Abdominal pain, epigastric Chronic right-sided low back pain without sciatica Primary hypertension Unspecified essential hypertension Hypothyroidism, unspecified type Postartificial menopausal syndrome Symptomatic states associated with artificial menopause Encounter for screening for malignant neoplasm of breast, unspecified screening modality Hair loss Unspecified alopecia Fibromyalgia- Primary Unspecified myalgia and myositis Migraine without status migrainosus, not intractable, unspecified migraine type Primary hypertension- Primary Unspecified essential hypertension Hypothyroidism, unspecified type Postartificial menopausal syndrome Symptomatic states associated with artificial menopause Iron deficiency Disorders of iron metabolism Migraine without status migrainosus, not intractable, unspecified migraine type Migraine with aura and without status migrainosus, not intractable- Primary Fibromyalgia Unspecified myalgia and myositis Chronic right hip pain Stress incontinence of urine- Primary Hypothyroidism, unspecified type Primary hypertension Unspecified essential hypertension Preop examination Unspecified pre-operative examination Psychophysiological insomnia Persistent disorder of initiating or maintaining sleep Primary hypertension Unspecified essential hypertension Postartificial menopausal syndrome Symptomatic states associated with artificial menopause Hypothyroidism, unspecified type Encounter for screening for malignant neoplasm of breast, unspecified screening modality Cognitive change Primary hypertension- Primary Unspecified essential hypertension Postartificial menopausal syndrome Symptomatic states associated with artificial menopause Hypothyroidism, unspecified type Symptomatic abdominal panniculus Mixed hyperlipidemia Migraine with aura and without status migrainosus, not intractable documented in this encounter [facility] note* Diagnosis Chest pain- Primary Unspecified chest pain Essential hypertension with goal blood pressure less than 130/80 Cerebrovascular accident (CVA), unspecified mechanism (HCC) Morbid obesity, unspecified obesity type (HCC) Chronic right hip pain- Primary Acquired hypothyroidism Unspecified hypothyroidism Mixed hyperlipidemia Essential hypertension- Primary Unspecified essential hypertension Hypothyroidism, unspecified type Postartificial menopausal syndrome Symptomatic states associated with artificial menopause Chronic pain of both ears- Primary Postartificial menopausal syndrome Symptomatic states associated with artificial menopause Essential hypertension Unspecified essential hypertension Large mass of breast Chronic right hip pain- Primary Chronic right-sided low back pain without sciatica Essential hypertension Unspecified essential hypertension Hypothyroidism, unspecified type B12 deficiency Preop examination Unspecified pre-operative examination Hypothyroidism, unspecified type Essential hypertension Unspecified essential hypertension TIA (transient ischemic attack) Unspecified transient cerebral ischemia Chronic tonsillitis and adenoiditis Migraine with aura and without status migrainosus, not intractable- Primary Hypothyroidism, unspecified type Mixed hyperlipidemia Primary hypertension Unspecified essential hypertension Vitamin D deficiency Encounter for screening for cardiovascular disorders B12 deficiency Epigastric pain Abdominal pain, epigastric Chronic right-sided low back pain without sciatica Primary hypertension Unspecified essential hypertension Hypothyroidism, unspecified type Postartificial menopausal syndrome Symptomatic states associated with artificial menopause Encounter for screening for malignant neoplasm of breast, unspecified screening modality Hair loss Unspecified alopecia Fibromyalgia- Primary Unspecified myalgia and myositis Migraine without status migrainosus, not intractable, unspecified migraine type Primary hypertension- Primary Unspecified essential hypertension Hypothyroidism, unspecified type Postartificial menopausal syndrome Symptomatic states associated with artificial menopause Iron deficiency Disorders of iron metabolism Migraine without status migrainosus, not intractable, unspecified migraine type Migraine with aura and without status migrainosus, not intractable- Primary Fibromyalgia Unspecified myalgia and myositis Chronic right hip pain Stress incontinence of urine- Primary Hypothyroidism, unspecified type Primary hypertension Unspecified essential hypertension Preop examination Unspecified pre-operative examination Psychophysiological insomnia Persistent disorder of initiating or maintaining sleep Primary hypertension Unspecified essential hypertension Postartificial menopausal syndrome Symptomatic states associated with artificial menopause Hypothyroidism, unspecified type Encounter for screening for malignant neoplasm of breast, unspecified screening modality Cognitive change Primary hypertension- Primary Unspecified essential hypertension Postartificial menopausal syndrome Symptomatic states associated with artificial menopause Hypothyroidism, unspecified type Symptomatic abdominal panniculus Mixed hyperlipidemia Sacral back pain- Primary Disorders of sacrum [facility]* Diagnosis Chest pain- Primary Unspecified chest pain Essential hypertension with goal blood pressure less than 130/80 Cerebrovascular accident (CVA), unspecified mechanism (HCC) Morbid obesity, unspecified obesity type (HCC) Chronic right hip pain- Primary Acquired hypothyroidism Unspecified hypothyroidism Mixed hyperlipidemia Essential hypertension- Primary Unspecified essential hypertension Hypothyroidism, unspecified type Postartificial menopausal syndrome Symptomatic states associated with artificial menopause Chronic pain of both ears- Primary Postartificial menopausal syndrome Symptomatic states associated with artificial menopause Essential hypertension Unspecified essential hypertension Large mass of breast Chronic right hip pain- Primary Chronic right-sided low back pain without sciatica Essential hypertension Unspecified essential hypertension Hypothyroidism, unspecified type B12 deficiency Preop examination Unspecified pre-operative examination Hypothyroidism, unspecified type Essential hypertension Unspecified essential hypertension TIA (transient ischemic attack) Unspecified transient cerebral ischemia Chronic tonsillitis and adenoiditis Migraine with aura and without status migrainosus, not intractable- Primary Hypothyroidism, unspecified type Mixed hyperlipidemia Primary hypertension Unspecified essential hypertension Vitamin D deficiency Encounter for screening for cardiovascular disorders B12 deficiency Epigastric pain Abdominal pain, epigastric Chronic right-sided low back pain without sciatica Primary hypertension Unspecified essential hypertension Hypothyroidism, unspecified type Postartificial menopausal syndrome Symptomatic states associated with artificial menopause Encounter for screening for malignant neoplasm of breast, unspecified screening modality Hair loss Unspecified alopecia Fibromyalgia- Primary Unspecified myalgia and myositis Migraine without status migrainosus, not intractable, unspecified migraine type Primary hypertension- Primary Unspecified essential hypertension Hypothyroidism, unspecified type Postartificial menopausal syndrome Symptomatic states associated with artificial menopause Iron deficiency Disorders of iron metabolism Migraine without status migrainosus, not intractable, unspecified migraine type Migraine with aura and without status migrainosus, not intractable- Primary Fibromyalgia Unspecified myalgia and myositis Chronic right hip pain Stress incontinence of urine- Primary Hypothyroidism, unspecified type Primary hypertension Unspecified essential hypertension Preop examination Unspecified pre-operative examination Psychophysiological insomnia Persistent disorder of initiating or maintaining sleep Primary hypertension Unspecified essential hypertension Postartificial menopausal syndrome Symptomatic states associated with artificial menopause Hypothyroidism, unspecified type Encounter for screening for malignant neoplasm of breast, unspecified screening modality Cognitive change Primary hypertension- Primary Unspecified essential hypertension Postartificial menopausal syndrome Symptomatic states associated with artificial menopause Hypothyroidism, unspecified type Symptomatic abdominal panniculus Mixed hyperlipidemia Upper respiratory tract infection, unspecified type- Primary Non-recurrent acute suppurative otitis media of left ear without spontaneous rupture of tympanic membrane documented in this encounter [facility] note* Diagnosis Chest pain- Primary Unspecified chest pain Essential hypertension with goal blood pressure less than 130/80 Cerebrovascular accident (CVA), unspecified mechanism (HCC) Morbid obesity, unspecified obesity type (HCC) Chronic right hip pain- Primary Acquired hypothyroidism Unspecified hypothyroidism Mixed hyperlipidemia Essential hypertension- Primary Unspecified essential hypertension Hypothyroidism, unspecified type Postartificial menopausal syndrome Symptomatic states associated with artificial menopause Chronic pain of both ears- Primary Postartificial menopausal syndrome Symptomatic states associated with artificial menopause Essential hypertension Unspecified essential hypertension Large mass of breast Chronic right hip pain- Primary Chronic right-sided low back pain without sciatica Essential hypertension Unspecified essential hypertension Hypothyroidism, unspecified type B12 deficiency Preop examination Unspecified pre-operative examination Hypothyroidism, unspecified type Essential hypertension Unspecified essential hypertension TIA (transient ischemic attack) Unspecified transient cerebral ischemia Chronic tonsillitis and adenoiditis Migraine with aura and without status migrainosus, not intractable- Primary Hypothyroidism, unspecified type Mixed hyperlipidemia Primary hypertension Unspecified essential hypertension Vitamin D deficiency Encounter for screening for cardiovascular disorders B12 deficiency Epigastric pain Abdominal pain, epigastric Chronic right-sided low back pain without sciatica Primary hypertension Unspecified essential hypertension Hypothyroidism, unspecified type Postartificial menopausal syndrome Symptomatic states associated with artificial menopause Encounter for screening for malignant neoplasm of breast, unspecified screening modality Hair loss Unspecified alopecia Fibromyalgia- Primary Unspecified myalgia and myositis Migraine without status migrainosus, not intractable, unspecified migraine type Primary hypertension- Primary Unspecified essential hypertension Hypothyroidism, unspecified type Postartificial menopausal syndrome Symptomatic states associated with artificial menopause Iron deficiency Disorders of iron metabolism Migraine without status migrainosus, not intractable, unspecified migraine type Migraine with aura and without status migrainosus, not intractable- Primary Fibromyalgia Unspecified myalgia and myositis Chronic right hip pain Stress incontinence of urine- Primary Hypothyroidism, unspecified type Primary hypertension Unspecified essential hypertension Preop examination Unspecified pre-operative examination Psychophysiological insomnia Persistent disorder of initiating or maintaining sleep Primary hypertension Unspecified essential hypertension Postartificial menopausal syndrome Symptomatic states associated with artificial menopause Hypothyroidism, unspecified type Encounter for screening for malignant neoplasm of breast, unspecified screening modality Cognitive change Primary hypertension- Primary Unspecified essential hypertension Postartificial menopausal syndrome Symptomatic states associated with artificial menopause Hypothyroidism, unspecified type Symptomatic abdominal panniculus Mixed hyperlipidemia Upper respiratory tract infection, unspecified type- Primary Non-recurrent acute suppurative otitis media of left ear without spontaneous rupture of tympanic membrane Migraine with aura and without status migrainosus, not intractable [facility]* Diagnosis Chest pain- Primary Unspecified chest pain Essential hypertension with goal blood pressure less than 130/80 Cerebrovascular accident (CVA), unspecified mechanism (HCC) Morbid obesity, unspecified obesity type (HCC) Chronic right hip pain- Primary Acquired hypothyroidism Unspecified hypothyroidism Mixed hyperlipidemia Essential hypertension- Primary Unspecified essential hypertension Hypothyroidism, unspecified type Postartificial menopausal syndrome Symptomatic states associated with artificial menopause Chronic pain of both ears- Primary Postartificial menopausal syndrome Symptomatic states associated with artificial menopause Essential hypertension Unspecified essential hypertension Large mass of breast Chronic right hip pain- Primary Chronic right-sided low back pain without sciatica Essential hypertension Unspecified essential hypertension Hypothyroidism, unspecified type B12 deficiency Preop examination Unspecified pre-operative examination Hypothyroidism, unspecified type Essential hypertension Unspecified essential hypertension TIA (transient ischemic attack) Unspecified transient cerebral ischemia Chronic tonsillitis and adenoiditis Migraine with aura and without status migrainosus, not intractable- Primary Hypothyroidism, unspecified type Mixed hyperlipidemia Primary hypertension Unspecified essential hypertension Vitamin D deficiency Encounter for screening for cardiovascular disorders B12 deficiency Epigastric pain Abdominal pain, epigastric Chronic right-sided low back pain without sciatica Primary hypertension Unspecified essential hypertension Hypothyroidism, unspecified type Postartificial menopausal syndrome Symptomatic states associated with artificial menopause Encounter for screening for malignant neoplasm of breast, unspecified screening modality Hair loss Unspecified alopecia Fibromyalgia- Primary Unspecified myalgia and myositis Migraine without status migrainosus, not intractable, unspecified migraine type Primary hypertension- Primary Unspecified essential hypertension Hypothyroidism, unspecified type Postartificial menopausal syndrome Symptomatic states associated with artificial menopause Iron deficiency Disorders of iron metabolism Migraine without status migrainosus, not intractable, unspecified migraine type Migraine with aura and without status migrainosus, not intractable- Primary Fibromyalgia Unspecified myalgia and myositis Chronic right hip pain Stress incontinence of urine- Primary Hypothyroidism, unspecified type Primary hypertension Unspecified essential hypertension Preop examination Unspecified pre-operative examination Psychophysiological insomnia Persistent disorder of initiating or maintaining sleep Primary hypertension Unspecified essential hypertension Postartificial menopausal syndrome Symptomatic states associated with artificial menopause Hypothyroidism, unspecified type Encounter for screening for malignant neoplasm of breast, unspecified screening modality Cognitive change Primary hypertension- Primary Unspecified essential hypertension Postartificial menopausal syndrome Symptomatic states associated with artificial menopause Hypothyroidism, unspecified type Symptomatic abdominal panniculus Mixed hyperlipidemia Upper respiratory tract infection, unspecified type- Primary Non-recurrent acute suppurative otitis media of left ear without spontaneous rupture of tympanic membrane Migraine with aura and without status migrainosus, not intractable [facility]* Diagnosis Chest pain- Primary Unspecified chest pain Essential hypertension with goal blood pressure less than 130/80 Cerebrovascular accident (CVA), unspecified mechanism (HCC) Morbid obesity, unspecified obesity type (HCC) Chronic right hip pain- Primary Acquired hypothyroidism Unspecified hypothyroidism Mixed hyperlipidemia Essential hypertension- Primary Unspecified essential hypertension Hypothyroidism, unspecified type Postartificial menopausal syndrome Symptomatic states associated with artificial menopause Chronic pain of both ears- Primary Postartificial menopausal syndrome Symptomatic states associated with artificial menopause Essential hypertension Unspecified essential hypertension Large mass of breast Chronic right hip pain- Primary Chronic right-sided low back pain without sciatica Essential hypertension Unspecified essential hypertension Hypothyroidism, unspecified type B12 deficiency Preop examination Unspecified pre-operative examination Hypothyroidism, unspecified type Essential hypertension Unspecified essential hypertension TIA (transient ischemic attack) Unspecified transient cerebral ischemia Chronic tonsillitis and adenoiditis Migraine with aura and without status migrainosus, not intractable- Primary Hypothyroidism, unspecified type Mixed hyperlipidemia Primary hypertension Unspecified essential hypertension Vitamin D deficiency Encounter for screening for cardiovascular disorders B12 deficiency Epigastric pain Abdominal pain, epigastric Chronic right-sided low back pain without sciatica Primary hypertension Unspecified essential hypertension Hypothyroidism, unspecified type Postartificial menopausal syndrome Symptomatic states associated with artificial menopause Encounter for screening for malignant neoplasm of breast, unspecified screening modality Hair loss Unspecified alopecia Fibromyalgia- Primary Unspecified myalgia and myositis Migraine without status migrainosus, not intractable, unspecified migraine type Primary hypertension- Primary Unspecified essential hypertension Hypothyroidism, unspecified type Postartificial menopausal syndrome Symptomatic states associated with artificial menopause Iron deficiency Disorders of iron metabolism Migraine without status migrainosus, not intractable, unspecified migraine type Migraine with aura and without status migrainosus, not intractable- Primary Fibromyalgia Unspecified myalgia and myositis Chronic right hip pain Stress incontinence of urine- Primary Hypothyroidism, unspecified type Primary hypertension Unspecified essential hypertension Preop examination Unspecified pre-operative examination Psychophysiological insomnia Persistent disorder of initiating or maintaining sleep Primary hypertension Unspecified essential hypertension Postartificial menopausal syndrome Symptomatic states associated with artificial menopause Hypothyroidism, unspecified type Encounter for screening for malignant neoplasm of breast, unspecified screening modality Cognitive change Primary hypertension- Primary Unspecified essential hypertension Postartificial menopausal syndrome Symptomatic states associated with artificial menopause Hypothyroidism, unspecified type Symptomatic abdominal panniculus Mixed hyperlipidemia Upper respiratory tract infection, unspecified type- Primary Non-recurrent acute suppurative otitis media of left ear without spontaneous rupture of tympanic membrane Annual physical exam- Primary Routine general medical examination at a health care facility Hypothyroidism, unspecified type Primary hypertension Unspecified essential hypertension Mixed hyperlipidemia Family history of diabetes mellitus [facility] noteNo assessment information availableMattel [facility] Work Phone: Instructions* Attachments The following attachments cannot be sent through Care Everywhere. * Well Visit: 18 to 65 Years ([place]) [facility]* Attachments The following attachments cannot be sent through Care Everywhere. * Well Visit: 18 to 65 Years (Irish) * Hip Flexor Strain: Rehab Exercises ([place]) [facility]* Attachments The following attachments cannot be sent through Care Everywhere. * URI (Upper Respiratory Infection) (Irish) documented in [facility]* Attachments The following attachments cannot be sent through Care Everywhere. * Well Visit: 18 to 65 Years ([place]) documented in this encounterTexasHealthReason for referral (narrative)No reason for referral information availableMattel [facility] Work Phone: Reason for visit Narrative* Auth/Cert Specialty Diagnoses / Procedures Referred By Damaris mi Referred To Contact Diagnoses Chronic tonsillitis and adenoiditis Chronic tonsillitis and adenoiditis [J35.03] Procedures LA REMOVE TONSILS/ADENOIDS >= 12 YRS TONSILLECTOMY AND possible ADENOIDECTOMY David Hawthorne MD [address] [place] [address] Referral ID Status Reason Start Date Expiration Date Visits Re quested Visits Authorized [id number] 11/05/2020 1 1 [facility] Instructions * Patient Instructions - Kaci Bassett MD - 07/22/2017 4:04 PM EDT Formatting of this note may be different from the original. High Blood Pressure: Care Instructions Your Care Instructions If your blood pressure is usually above 130/80, you have high blood pressure, or hypertension. Thatmeans the top number is 130 or higher or the bottom number is 80 or higher, or both. Despite what a lot of people think, high blood pressure usually doesn't cause headaches or make youfeel dizzy or lightheaded. It usually has no symptoms. But it does increase your risk for heart attack, stroke, and kidney or eye damage. The higher your blood pressure, the more your risk increases. Your doctor will give you a goal for your blood pressure. Your goal will be based on your health and your age. Lifestyle changes, such as eating healthy and being active, are always important to help lower blood pressure. You might also take medicine to reach your blood pressure goal. Follow-up care is a bradley part of your treatment and safety. Be sure to make and go to all appointments, and call your doctor if you are having problems. It's also a good idea to know your test resultsand keep a list of the medicines you take. How can you care for yourself at home? Medical treatment If you stop taking your medicine, your blood pressure will go back up. You may take one or more types of medicine to lower your blood pressure. Be safe with medicines. Take your medicine exactly as prescribed. Call your doctor if you think you are having a problem with your medicine. Talk to your doctor before you start taking aspirin every day. Aspirin can help certain people lower their risk of a heart attack or stroke. But taking aspirin isn't right for everyone, because it can cause serious bleeding. See your doctor regularly. You may need to see the doctor more often at first or until your blood pressure comes down. If you are taking blood pressure medicine, talk to your doctor before you take decongestants or anti-inflammatory medicine, such as ibuprofen. Some of these medicines can raise blood pressure. Learn how to check your blood pressure at home. Lifestyle changes Stay at a healthy weight. This is especially important if you put on weight around the waist. Losing even 10 pounds can help you lower your blood pressure. If your doctor recommends it, get more exercise. Walking is a good choice. Bit by bit, increase theamount you walk every day. Try for at least 30 minutes on most days of the week. You also may want to swim, bike, or do other activities. Avoid or limit alcohol. Talk to your doctor about whether you can drink any alcohol. Try to limit how much sodium you eat to less than 2,300 milligrams (mg) a day. Your doctor may ask you to try to eat less than 1,500 mg a day. Eat plenty of fruits (such as bananas and oranges), vegetables, legumes, whole grains, and low-fat dairy products. Lower the amount of saturated fat in your diet. Saturated fat is found in animal products such as milk, cheese, and meat. Limiting these foods may help you lose weight and also lower your risk for heart disease. Do not smoke. Smoking increases your risk for heart attack and stroke. If you need help quitting, talk to your doctor about stop-smoking programs and medicines. These can increase your chances of quitting for good. When should you call for help? Call 911 anytime you think you may need emergency care. This may mean having symptoms that suggest that your blood pressure is causing a serious heart or blood vessel problem. Your blood pressure maybe over 180/110. ?For example, call 911 if: ? You have symptoms of a heart attack. These may include: Chest pain or pressure, or a strange feeling in the chest. Sweating. Shortness of breath. Nausea or vomiting. Pain, pressure, or a strange feeling in the back, neck, jaw, or upper belly or in one or both shoulders or arms. Lightheadedness or sudden weakness. A fast or irregular heartbeat. ? You have symptoms of a stroke. These may include: Sudden numbness, tingling, weakness, or loss of movement in your face, arm, or leg, especially on only one side of your body. Sudden vision changes. Sudden trouble speaking. Sudden confusion or trouble understanding simple statements. Sudden problems with walking or balance. A sudden, severe headache that is different from past headaches. ? You have severe back or belly pain. ?Do not wait until your blood pressure comes down on its own. Get help right away. ?Call your doctor now or seek immediate care if: ? Your blood pressure is much higher than normal (such as 180/110 or higher), but you don't have symptoms. ? You think high blood pressure is causing symptoms, such as: Severe headache. Blurry vision. ?Watch closely for changes in your health, and be sure to contact your doctor if: ? Your blood pressure measures 140/90 or higher at least 2 times. That means the top number is 140 or higher or the bottom number is 90 or higher, or both. ? You think you may be having side effects from your blood pressure medicine. ? Your blood pressure is usually normal, but it goes above normal at least 2 times. Where can you learn more? Log into your personal health record on [email or web address] and enter X567 in the Education box to learn more about High Blood Pressure: Care Instructions. Current as of: February 11, 2017 Content Version: .[id number] [employer]. Care instructions adapted under license by your healthcare professional. If you have questions about a medical condition or this instruction, always ask your healthcare professional. [employer] disclaims any warranty or liability for your use of this information. in this encounter* Patient Instructions* Alise Sprague, SENIOR COMPUTER SPECIALIST - 10/12/2018 4:50 PM EDT Problem List Items Addressed This Visit Endocrine Hypothyroidism Relevant Orders TSH with Reflex Free T4 Other Mixed hyperlipidemia I have ordered blood work for you to have completed. Please have this completed at 7 days before your next appointment. This blood work will need to be completed while fasting. This means nothing to eat or drink for 6-8 hours prior to having it drawn. You can however, drink water and take medications as ordered during this time. I will review your labs via [employer] or the office will with your results. Relevant Orders CBC and Differential Comprehensive Metabolic Panel Lipid Panel Chronic right hip pain - Primary Relevant Orders MR Hip Right With Contrast Hip Pain: Care Instructions Your Care Instructions Hip pain may be caused by many things, including overuse, a fall, or a twisting movement. Another cause of hip pain is arthritis. Your pain may increase when you stand up, walk, or squat. The pain may come and go or may be constant. Home treatment can help relieve hip pain, swelling, and stiffness. If your pain is ongoing, you mayneed more tests and treatment. Follow-up care is a bradley part of your treatment and safety. Be sure to make and go to all appointments, and call your doctor if you are having problems. It's also a good idea to know your test resultsand keep a list of the medicines you take. How can you care for yourself at home? Take pain medicines exactly as directed. ? If the doctor gave you a prescription medicine for pain, take it as prescribed. ? If you are not taking a prescription pain medicine, ask your doctor if you can take an bvzc-eic-cgulrep medicine. Rest and protect your hip. Take a break from any activity, including standing or walking, that may cause pain. Put ice or a cold pack against your hip for 10 to 20 minutes at a time. Try to do this every 1 to 2hours for the next 3 days (when you are awake) or until the swelling goes down. Put a thin cloth between the ice and your skin. Sleep on your healthy side with a pillow between your knees, or sleep on your back with pillows under your knees. If there is no swelling, you can put moist heat, a heating pad, or a warm cloth on your hip. Do gentle stretching exercises to help keep your hip flexible. Learn how to prevent falls. Have your vision and hearing checked regularly. Wear slippers or shoes with a nonskid sole. Stay at a healthy weight. Wear comfortable shoes. When should you call for help? Call 911 anytime you think you may need emergency care. For example, call if: You have sudden chest pain and shortness of breath, or you cough up blood. You are not able to stand or walk or bear weight. Your buttocks, legs, or feet feel numb or tingly. Your leg or foot is cool or pale or changes color. You have severe pain. Call your doctor now or seek immediate medical care if: You have signs of infection, such as: ? Increased pain, swelling, warmth, or redness in the hip area. ? Red streaks leading from the hip area. ? Pus draining from the hip area. ? A fever. You have signs of a blood clot, such as: ? Pain in your calf, back of the knee, thigh, or groin. ? Redness and swelling in your leg or groin. You are not able to bend, straighten, or move your leg normally. You have trouble urinating or having bowel movements. Watch closely for changes in your health, and be sure to contact your doctor if: You do not get better as expected. Where can you learn more? Log into your personal health record on [email or web address] and enter Z720 in the Education box to learn more about Hip Pain: Care Instructions. Current as of: November 29, 2017 Content Version: 12.1 [id number] [employer]. Care instructions adapted under license by your healthcare professional. If you have questions about a medical condition or this instruction, always ask your healthcare professional. [employer] disclaims any warranty or liability for your use of this information. documented in this encounter* Patient Instructions* Alise Sprague CNP - 12/20/2018 8:47 AM EDT Problem List Items Addressed This Visit Endocrine Hypothyroidism Continue meds as prescribed, watch diet, and increase activity as able to tolerate. Relevant Medications levothyroxine (SYNTHROID, LEVOTHROID) 100 MCG tablet Other Relevant Orders TSH with Reflex Free T4 Cardiovascular and Mediastinum Hypertension - Primary Stable, continue meds, increase activity as can tolerate, limit salt, and watch diet. Continue to monitor blood pressure at home as instructed. Bring blood pressure log and cuff to your next visit. I have ordered blood work for you to have completed. Please have this completed one week before your next appointment in 6 months. This blood work will need to be completed while fasting. This means nothing to eat or drink for 6-8 hours prior to having it drawn. You can however, drink water and take medications as ordered during this time. I will review your labs via [employer] or the office will with your results. Relevant Medications lisinopril (PRINIVIL,ZESTRIL) 40 MG tablet Other Relevant Orders CBC and Differential Comprehensive Metabolic Panel Lipid Panel Other Postartificial menopausal syndrome Continue meds as prescribed, watch diet, and increase activity as able to tolerate. Relevant Medications estradiol (ESTRACE) 2 MG tablet Hormone Therapy (HT): Care Instructions Your Care Instructions Hormone therapy (HT) is medicine to treat symptoms of menopause, such as hot flashes, vaginal dryness, and sleep problems. It replaces the hormones that drop at menopause. Most women get relief from these symptoms within weeks of starting HT. HT contains two female hormones, estrogen and progestin. HT may come in the form of a pill, patch, gel, spray, or vaginal ring. A vaginal cream or a vaginal ring that has a much lower dose of estrogen may be used to relieve vaginal dryness only. HT has some risks. Most doctors recommend that women only take HT for as short a time as possible. This is to reduce the chances of heart disease, breast cancer, blood clots, and stroke that may be connected to HT. Be sure to have regular checkups with your doctor when taking HT. Talk with your doctor about whether HT is right for you. If you decide that the benefits of HT outweigh the risks, ask your doctor to prescribe the lowest effective dose for as short a time as possible. Follow-up care is a bradley part of your treatment and safety. Be sure to make and go to all appointments, and call your doctor if you are having problems. It's also a good idea to know your test resultsand keep a list of the medicines you take. Why might you take HT? HT reduces symptoms of menopause. These include hot flashes, mood swings, and sleep problems. The estrogen in HT helps to prevent thinning bones. And it may lower the chance of colon cancer. HT helps keep the lining of the vagina moist and thick. This can reduce irritation. HT helps protect against dental problems, such as tooth loss and gum disease. What are the risks of taking HT? Some women who take HT may have vaginal bleeding, bloating, nausea, sore breasts, mood swings, and headaches. Talk to your doctor about changing the type of HT you take or lowering the dose. This mayhelp to end these side effects. Taking HT may slightly increase your risk for heart disease, breast cancer, ovarian cancer, blood clots, and stroke. You should not take HT if you: ? Could be . ? Have a personal history of breast cancer, endometrial cancer, pulmonary embolism, deep vein thrombosis, heart attack, or stroke. ? Have vaginal bleeding from an unknown cause. ? Have active liver disease. What can you do to reduce the symptoms of menopause? Eat healthy foods and get regular exercise. This also will help to maintain strong bones and a healthy heart. Do not smoke. If you smoke, you can reduce hot flashes and long-term health risks by stopping. If you need help quitting, talk to your doctor about stop- smoking programs and medicines. These can increase your chances of quitting for good. Practice daily breathing exercises (meditation) to reduce hot flashes and mood swings. Limit the amount of alcohol you drink. This can reduce symptoms of menopause and long-term health risks. Keep your home and office cool. Use a vaginal lubricant, such as Astroglide, Wet Gel Lubricant, or K-Y Jelly. Do pelvic floor (Kegel) exercises, which tighten and strengthen pelvic muscles. To do Kegel exercises: ? Squeeze the same muscles you would use to stop your urine. Your belly and thighs should not move. ? Hold the squeeze for 3 seconds, then relax for 3 seconds. ? Start with 3 seconds. Then add 1 second each week until you are able to squeeze for 10 seconds. ? Repeat the exercise 10 to 15 times a session. Do three or more sessions a day. Where can you learn more? Log into your personal health record on [email or web address] and enter B978 in the Education box to learn more about Hormone Therapy (HT): Care Instructions. Current as of: April 27, 2018 Content Version: 12. [employer]. Care instructions adapted under license by your healthcare professional. If you have questions about a medical condition or this instruction, always ask your healthcare professional. [employer] disclaims any warranty or liability for your use of this information. High Blood Pressure: Care Instructions Overview It's normal for blood pressure to go up and down throughout the day. But if it stays up, you have high blood pressure. Another name for high blood pressure is hypertension. Despite what a lot of people think, high blood pressure usually doesn't cause headaches or make youfeel dizzy or lightheaded. It usually has no symptoms. But it does increase your risk of stroke, heart attack, and other problems. You and your doctor will talk about your risks of these problems based on your blood pressure. Your doctor will give you a goal for your blood pressure. Your goal will be based on your health and your age. Lifestyle changes, such as eating healthy and being active, are always important to help lower blood pressure. You might also take medicine to reach your blood pressure goal. Follow-up care is a bradley part of your treatment and safety. Be sure to make and go to all appointments, and call your doctor if you are having problems. It's also a good idea to know your test resultsand keep a list of the medicines you take. How can you care for yourself at home? Medical treatment If you stop taking your medicine, your blood pressure will go back up. You may take one or more types of medicine to lower your blood pressure. Be safe with medicines. Take your medicine exactly as prescribed. Call your doctor if you think you are having a problem with your medicine. Talk to your doctor before you start taking aspirin every day. Aspirin can help certain people lower their risk of a heart attack or stroke. But taking aspirin isn't right for everyone, because it can cause serious bleeding. See your doctor regularly. You may need to see the doctor more often at first or until your blood pressure comes down. If you are taking blood pressure medicine, talk to your doctor before you take decongestants or anti-inflammatory medicine, such as ibuprofen. Some of these medicines can raise blood pressure. Learn how to check your blood pressure at home. Lifestyle changes Stay at a healthy weight. This is especially important if you put on weight around the waist. Losing even 10 pounds can help you lower your blood pressure. If your doctor recommends it, get more exercise. Walking is a good choice. Bit by bit, increase theamount you walk every day. Try for at least 30 minutes on most days of the week. You also may want to swim, bike, or do other activities. Avoid or limit alcohol. Talk to your doctor about whether you can drink any alcohol. Try to limit how much sodium you eat to less than 2,300 milligrams (mg) a day. Your doctor may ask you to try to eat less than 1,500 mg a day. Eat plenty of fruits (such as bananas and oranges), vegetables, legumes, whole grains, and low-fat dairy products. Lower the amount of saturated fat in your diet. Saturated fat is found in animal products such as milk, cheese, and meat. Limiting these foods may help you lose weight and also lower your risk for heart disease. Do not smoke. Smoking increases your risk for heart attack and stroke. If you need help quitting, talk to your doctor about stop-smoking programs and medicines. These can increase your chances of quitting for good. When should you call for help? Call 911 anytime you think you may need emergency care. This may mean having symptoms that suggest that your blood pressure is causing a serious heart or blood vessel problem. Your blood pressure maybe over 180/120. For example, call 911 if: You have symptoms of a heart attack. These may include: ? Chest pain or pressure, or a strange feeling in the chest. ? Sweating. ? Shortness of breath. ? Nausea or vomiting. ? Pain, pressure, or a strange feeling in the back, neck, jaw, or upper belly or in one or both shoulders or arms. ? Lightheadedness or sudden weakness. ? A fast or irregular heartbeat. You have symptoms of a stroke. These may include: ? Sudden numbness, tingling, weakness, or loss of movement in your face, arm, or leg, especially ononly one side of your body. ? Sudden vision changes. ? Sudden trouble speaking. ? Sudden confusion or trouble understanding simple statements. ? Sudden problems with walking or balance. ? A sudden, severe headache that is different from past headaches. You have severe back or belly pain. Do not wait until your blood pressure comes down on its own. Get help right away. Call your doctor now or seek immediate care if: Your blood pressure is much higher than normal (such as 180/120 or higher), but you don't have symptoms. You think high blood pressure is causing symptoms, such as: ? Severe headache. ? Blurry vision. Watch closely for changes in your health, and be sure to contact your doctor if: Your blood pressure measures higher than your doctor recommends at least 2 times. That means the top number is higher or the bottom number is higher, or both. You think you may be having side effects from your blood pressure medicine. Where can you learn more? Log into your personal health record on [email or web address] and enter X567 in the Education box to learn more about High Blood Pressure: Care Instructions. Current as of: September 27, 2017 Content Version: 12.1 5942-4333 [employer]. Care instructions adapted under license by your healthcare professional. If you have questions about a medical condition or this instruction, always ask your healthcare professional. [employer] disclaims any warranty or liability for your use of this information. documented in this encounter* Patient Instructions* Alise Sprague CNP - 04/24/2019 9:17 PM EST Problem List Items Addressed This Visit None Visit Diagnoses Otitis externa, unspecified chronicity, unspecified laterality, unspecified type - Primary Start your oral antibiotic and eardrops today. If symptoms worsen or your hearing loss worsens you need to go to the nearest emergency department. Relevant Medications doxycycline hyclate (VIBRA-TABS) 100 MG tablet ciprofloxacin-dexamethasone (CIPRODEX) otic suspension Right otitis media, unspecified otitis media type Relevant Medications doxycycline hyclate (VIBRA-TABS) 100 MG tablet ciprofloxacin-dexamethasone (CIPRODEX) otic suspension Antibiotic-induced yeast infection Relevant Medications fluconazole (DIFLUCAN) 150 MG tablet Swimmer's Ear: Care Instructions Your Care Instructions Swimmer's ear (otitis externa) is inflammation or infection of the ear canal. This is the passage that leads from the outer ear to the eardrum. Any water, sand, or other debris that gets into the earcanal and stays there can cause swimmer's ear. Putting cotton swabs or other items in the ear to clean it can also cause this problem. Swimmer's ear can be very painful. But you can treat the pain and infection with medicines. You should feel better in a few days. Follow-up care is a bradley part of your treatment and safety. Be sure to make and go to all appointments, and call your doctor if you are having problems. It's also a good idea to know your test resultsand keep a list of the medicines you take. How can you care for yourself at home? Cleaning and care Use antibiotic drops as your doctor directs. Do not insert ear drops (other than the antibiotic ear drops) or anything else into the ear unless your doctor has told you to. Avoid getting water in the ear until the problem clears up. Use cotton lightly coated with petroleum jelly as an earplug. Do not use plastic earplugs. Use a hair boiler set on low to carefully dry the ear after you shower. To ease ear pain, hold a warm washcloth against your ear. Take pain medicines exactly as directed. ? If the doctor gave you a prescription medicine for pain, take it as prescribed. ? If you are not taking a prescription pain medicine, ask your doctor if you can take an owms-ean-vokchez medicine. Inserting ear drops Warm the drops to body temperature by rolling the container in your hands. Or you can place it in acup of warm water for a few minutes. Lie down, with your ear facing up. Place drops inside the ear. Follow your doctor's instructions (or the directions on the label) for how many drops to use. Gently wiggle the outer ear or pull the ear up and back to help the drops getinto the ear. It's important to keep the liquid in the ear canal for 3 to 5 minutes. When should you call for help? Call your doctor now or seek immediate medical care if: You have a new or higher fever. You have new or worse pain, swelling, warmth, or redness around or behind your ear. You have new or increasing pus or blood draining from your ear. Watch closely for changes in your health, and be sure to contact your doctor if: You are not getting better after 2 days (48 hours). Where can you learn more? Log into your personal health record on [email or web address] and enter C706 in the Education box to learn more about Swimmer's Ear: Care Instructions. Current as of: October 03, 2018 Content Version: 12.3 0066-3329 [employer]. Care instructions adapted under license by your healthcare professional. If you have questions about a medical condition or this instruction, always ask your healthcare professional. [employer] disclaims any warranty or liability for your use of this information. Ear Infection (Otitis Media): Care Instructions Your Care Instructions An ear infection may start with a cold and affect the middle ear (otitis media). It can hurt a lot.Most ear infections clear up on their own in a couple of days. Most often you will not need antibiotics. This is because many ear infections are caused by a virus. Antibiotics don't work against a virus. Regular doses of pain medicines are the best way to reduce your fever and help you feel better. Follow-up care is a bradley part of your treatment and safety. Be sure to make and go to all appointments, and call your doctor if you are having problems. It's also a good idea to know your test resultsand keep a list of the medicines you take. How can you care for yourself at home? Take pain medicines exactly as directed. ? If the doctor gave you a prescription medicine for pain, take it as prescribed. ? If you are not taking a prescription pain medicine, take an rbtp-[id number] medicine, such as acetaminophen (Tylenol), ibuprofen (Advil, Motrin), or naproxen (Aleve). Read and follow all instructions on the label. ? Do not take two or more pain medicines at the same time unless the doctor told you to. Many pain medicines have acetaminophen, which is Tylenol. Too much acetaminophen (Tylenol) can be harmful. Plan to take a full dose of pain reliever before bedtime. Getting enough sleep will help you get better. Try a warm, moist washcloth on the ear. It may help relieve pain. If your doctor prescribed antibiotics, take them as directed. Do not stop taking them just because you feel better. You need to take the full course of antibiotics. When should you call for help? Call your doctor now or seek immediate medical care if: You have new or increasing ear pain. You have new or increasing pus or blood draining from your ear. You have a fever with a stiff neck or a severe headache. Watch closely for changes in your health, and be sure to contact your doctor if: You have new or worse symptoms. You are not getting better after taking an antibiotic for 2 days. Where can you learn more? Log into your personal health record on [email or web address] [employer] Art and enter X558 in the Education box to learn more about Ear Infection (Otitis Media): Care Instructions. Current as of: October 03, 2018 Content Version: 12.3 7795-3050 [employer]own[employer]. Care instructions adapted under license by your healthcare professional. If you have questions about a medical condition or this instruction, always ask your healthcare professional. [employer] disclaims any warranty or liability for your use of this information. documented in this encounter* Patient Instructions* Alise Sprague CNP - 09/28/2019 8:29 AM EDT . Problem List Items Addressed This Visit Cardiovascular and Mediastinum Hypertension Stable, continue meds, increase activity as can tolerate, limit salt, and watch diet. Continue to monitor blood pressure at home as instructed. Bring blood pressure log and cuff to your next visit. Other Postartificial menopausal syndrome Continue meds as prescribed, watch diet, and increase activity as able to tolerate. Relevant Medications estradioL (ESTRACE) 2 MG tablet Other Visit Diagnoses Chronic pain of both ears - Primary Dr. Banks's office will call you to schedule an appointment for evaluation of your chronic reoccurring otitis media. Relevant Orders Ambulatory referral to ENT Large mass of breast Dr. Sanchez's office will call you to schedule an appointment for assessment for possible breast reduction Relevant Orders Ambulatory referral to Plastic Surgery Breast Reduction: Before Your Surgery What is breast reduction? Breast reduction surgery removes a lot of the breast tissue and skin from the breasts. This reshapes and lifts the breasts and reduces their size. It can also make the dark area around the nipple smaller. Your doctor makes a cut around the dark area and down to the crease under the breast. The cut is called an incision. To reduce the breast size, the doctor removes extra skin and breast tissue. The doctor sews the remaining skin together. This tightens and lifts the breasts. The surgery may pull thenipples and the area around them into a different spot on the breasts. Your doctor may need to moveyour nipples higher. You may lose some feeling in them because of this. The doctor closes the incisions with stitches. After surgery, your breasts will weigh less. But you may have lasting scars on your breasts. And you may have less feeling in your breasts and nipples. Breast reduction may make it hard to breastfeed. Breast reduction surgery is usually done in a hospital or surgical center. You will likely be asleep for your surgery. You will probably be able to go home the same day. Depending on the type of workyou do, you should be able to go back to work or your normal routine in 2 to 3 weeks. The incisionsleave scars that usually fade a lot with time. Follow-up care is a bradley part of your treatment and safety. Be sure to make and go to all appointments, and call your doctor if you are having problems. It's also a good idea to know your test resultsand keep a list of the medicines you take. How do you prepare for surgery? Surgery can be stressful. This information will help you understand what you can expect. And it will help you safely prepare for surgery. Preparing for surgery Be sure you have someone to take you home. Anesthesia and pain medicine will make it unsafe for youto drive or get home on your own. Understand exactly what surgery is planned, along with the risks, benefits, and other options. If you take aspirin or some other blood thinner, ask your doctor if you should stop taking it before your surgery. Make sure that you understand exactly what your doctor wants you to do. These medicines increase the risk of bleeding. Tell your doctor ALL the medicines, vitamins, supplements, and herbal remedies you take. Some may increase the risk of problems during your surgery. Your doctor will tell you if you should stop taking any of them before the surgery and how soon to do it. Make sure your doctor and the hospital have a copy of your advance directive. If you don't have one, you may want to prepare one. It lets others know your health care wishes. It's a good thing to have before any type of surgery or procedure. What happens on the day of surgery? Follow the instructions exactly about when to stop eating and drinking. If you don't, your surgery may be canceled. If your doctor told you to take your medicines on the day of surgery, take them with only a sip of water. Take a bath or shower before you come in for your surgery. Do not apply lotions, perfumes, deodorants, or nail paraguayan. Do not shave the surgical site yourself. Take off all jewelry and piercings. And take out contact lenses, if you wear them. At the hospital or surgery center Bring a picture ID. Your doctor will use a marker to draw lines on your breasts. He or she will use these lines during surgery to reshape your breasts. You will be kept comfortable and safe by your anesthesia provider. The anesthesia may make you sleep. Or it may just numb the area being worked on. The surgery will take about 2 to 4 hours. You may have drain tubes in your breasts. When should you call your doctor? You have questions or concerns. You don't understand how to prepare for your surgery. You become ill before the surgery (such as fever, flu, or a cold). You need to reschedule or have changed your mind about having the surgery. Where can you learn more? Log into your personal health record on [email or web address]://[email or web address] and enter E381 in the Education box to learn more about Breast Reduction: Before Your Surgery. Current as of: January 06, 2019 Content Version: 12.5 [employer]. Care instructions adapted under license by your healthcare professional. If you have questions about a medical condition or this instruction, always ask your healthcare professional. [employer] disclaims any warranty or liability for your use of this information. documented in this encounter* Patient Instructions* Alise Sprague CNP - 01/30/2020 1:27 PM EST Problem List Items Addressed This Visit None Visit Diagnoses Pre-op evaluation - Primary have your lab work completed,once the results are completed the office will fax your clearance to Dr. Sanchez's office Relevant Orders ECG 12 Lead Basic Metabolic Panel PT/INR APTT CBC and Differential Before Your Surgery: How to Prepare (01:48) Your health professional recommends that you watch this short online health video. Find out how to prepare for surgery. How to watch the video Scan the QR code OR Visit the website [email or web address] Current as of: August 03, 2019 Content Version: 12.6 [employer]own[employer]. Care instructions adapted under license by your healthcare professional. If you have questions about a medical condition or this instruction, always ask your healthcare professional. [employer] disclaims any warranty or liability for your use of this information. documented in this encounter Assessments Diagnosis Essential hypertension - [facility] Unspecified essential hypertension Hypothyroidism, unspecified type Insomnia, unspecified type Chronic midline low back kelli n without sciatica Vitamin D deficiency Diagnosis Acquired hypothyroidism - [facility] Unspecified hypothyroidism Essential hypertension Unspecified essential hypertension Chronic midline low back kelli n without sciatica Vitamin D deficiency Diagnosis Mixed hyperlipidemia- Primary Essential hypertension Unspecified essential hypertension Acquired hypothyroidism Unspecified hypothyroidism Chronic midline low back pain without sciatica Vitamin D deficiency Diagnosis Left foot pain- Primary Pain in limb Diagnosis Essential hypertension- Primary Unspecified essential hypertension Acquired hypothyroidism Unspecified hypothyroidism Mixed hyperlipidemia Chronic right-sided low back pain without sciatica Diagnosis Right hip pain Pain in joint, pelvic region and thigh Diagnosis Chronic right hip pain- Primary Acquired hypothyroidism Unspecified hypothyroidism Mixed hyperlipidemia Diagnosis Chronic right hip pain Diagnosis Essential hypertension- Primary Unspecified essential hypertension Hypothyroidism, unspecified type Postartificial menopausal syndrome Symptomatic states associated with artificial menopause Diagnosis Chronic right hip pain Diagnosis Otitis externa, unspecified chronicity, unspecified laterality, unspecified type Right otitis media, unspecified otitis media type Antibiotic-induced yeast infection Diagnosis Chronic pain of both ears Postartificial menopausal syndrome Symptomatic states associated with artificial menopause Essential hypertension Unspecified essential hypertension Large mass of breast Diagnosis ETD (Eustachian tube dysfunction), bilateral Chronic pain of both ears History of recurrent ear infection Diagnosis Rectal bleeding- Primary Hemorrhage of rectum and anus Family history of colon cancer Family history of malignant neoplasm of gastrointestinal tract Rectal bleeding Hemorrhage of rectum and anus Diagnosis Macromastia Hypertrophy of breast Chronic bilateral back pain Macromastia- Primary Hypertrophy of breast Chronic back pain, unspecified back location, unspecified back pain laterality Chronic bilateral back pain, unspecified back location Diagnosis Rectal bleeding Hemorrhage of rectum and anus Family history of colon cancer Family history of malignant neoplasm of gastrointestinal tract Pre-op evaluation- Primary Diagnosis Macromastia Hypertrophy of breast Chronic bilateral back pain S/P bilateral breast reduction- Primary Other postprocedural status Chronic back pain, unspecified back location, unspecified back pain laterality Chronic bilateral back pain, unspecified back location Diagnosis S/P bilateral breast reduction- Primary Other postprocedural status Macromastia Hypertrophy of breast Chronic bilateral back pain, unspecified back location Diagnosis S/P bilateral breast reduction- Primary Other postprocedural status Diagnosis Seroma of breast- Primary Diagnosis Hypothyroidism, unspecified type Diagnosis S/P bilateral breast reduction- Primary Other postprocedural status Diagnosis Macromastia Hypertrophy of breast Chronic back pain, unspecified back location, unspecified back pain laterality Diagnosis Essential hypertension Unspecified essential hypertension Hypothyroidism, unspecified type Diagnosis Encounter for screening mammogram for malignant neoplasm of breast- Primary Diagnosis S/P bilateral breast reduction- Primary Other postprocedural status Seroma of breast Diagnosis Fatigue, unspecified type- Primary Vitamin D deficiency B12 deficiency Anemia, unspecified type Diagnosis Vitamin B12 deficiency- Primary Other B-complex deficiencies Summary Purpose Family History No Family History Records FoundNo Family History Records FoundNo Family History Records FoundNo Family History Records FoundNo Family History Records FoundNo Family History Records FoundNo Family History Records FoundNo Family History Records FoundNo Family History Records FoundNo Family History Records Found Advance Directives No Advanced Directives Records FoundDocuments on File Type Date Recorded Patient Inspector Cl[employer] Expl anation Advance Directives and Livin g Will 09/03/2018 8:35 AM Documents on File Type Date Recorded Patient Inspector Cl[employer] Expl anation Advance Directives and Livin g Will 09/03/2018 8:35 AM Documents on File Type Date Recorded Patient Inspector Cl[employer] Expl anation Advance Directives and Livin g Will 11/04/2018 6:17 AM Documents on File Type Date Recorded Patient Inspector Cl[employer] S[employer]lasses Expl anation Advance Directives and Livin g Will 11/04/2018 6:17 AM Documents on File Type Date Recorded Patient Inspector Cl[employer] S[employer]lasses Expl anation Advance Directives and Livin g Will 11/06/2020 6:17 AM Documents on File Type Date Recorded Patient Inspector Cl[employer] Expl anation Advance Directives and Livin g Will 11/13/2020 9:39 AM Documents on File Type Date Recorded Patient Inspector Cl[employer] Sunglasses Expl anation Advance Directives and Livin g Will 11/13/2020 9:39 AM Documents on File Type Date Recorded Patient Inspector Cl[employer] Sunglasses Expl anation Advance Directives and Livin g Will 04/08/2021 9:45 AM Documents on File Type Date Recorded Patient Inspector Cl[employer] Sunglasses Expl anation Advance Directives and Livin g Will 04/08/2021 9:45 AM Documents on File Type Date Recorded Patient Inspector Cl[employer]lasses Expl anation Advance Directives and Livin g Will 12/21/2023 8:22 AM NOT ON FILE Documents on File Type Date Recorded Patient Inspector Cl[employer] Expl anation Advance Directives and Livin g Will 12/21/2023 8:22 AM NOT ON FILE History of Present Illness * Kaci Bassett MD - 03/18/2018 4:28 PM EST Formatting of this note may be different from the original. Lima Jordan 1970 [id number] HPI: Patient was here today for a follow-up on her chronic medical problems. Chronic low back pain: Patient states today that she has been receiving injections in her lower back which seemed to relieve her pain symptoms now. She has not been taking Celebrex because the pain management physician told her that the medication may not help. Hyperlipidemia, hypertension, hypothyroidism: Patient has been compliant with low-fat and low-cholesterol diet and her latest lipid panel from December showed some improvement in cholesterol with the latest LDL around 45 though triglycerides still slightly on the high side. Patient has been taking all the prescribed hypertension medications including Norvasc without any significant adverse effectsbut states that her blood pressure still seems to be running on the high side in the range of 130 145/80 5 95 mostly. Patient's latest TFTs again showed abnormal TSH at 0.18 but a normal free T4 at 1.2. Patient denies any significant active clinical symptoms of hypo-/hyperthyroidism. 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 Hypothyroidism HYPOTHYROIDISM Vitamin D deficiency VITAMIN D DEFICIENCY Spina bifida occulta SPINA BIFIDA OCCULTA Migraine MIGRAINE Mixed hyperlipidemia MIXED HYPERLIPIDEMIA Insomnia INSOMNIA Osteopenia OSTEOPENIA Past Medical History: Diagnosis Date Anemia Endometriosis 1996 Hypertension Hypothyroid Low back pain 06/26/2011 Migraine 06/26/2011 Mixed hyperlipidemia 06/26/2011 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 Social History Main Topics Smoking status: Never Smoker Smokeless tobacco: Never Used Alcohol use Yes Comment: SOCIALLY Drug use: No Sexual activity: Yes Other Topics Concern Not on file Social History Narrative No narrative on file Family History Problem Relation Age of Onset Heart disease Mother Hypertension Mother Heart attack Mother Stroke Mother Hypertension Father Heart disease Father Diabetes Father Stroke Father Parkinson's Brother Alcohol abuse Brother Review of Systems Constitutional: Negative for appetite change, chills, fatigue, fever and unexpected weight change. Respiratory: Negative for cough, shortness of breath and wheezing. Cardiovascular: Negative for chest pain, palpitations and leg swelling. Gastrointestinal: Negative for abdominal pain, blood in stool, constipation, diarrhea, nausea and vomiting. Endocrine: Negative for cold intolerance, heat intolerance, polydipsia, polyphagia and polyuria. Musculoskeletal: Positive for back pain. Neurological: Negative for dizziness, light-headedness, numbness and headaches. Psychiatric/Behavioral: Negative for dysphoric mood. The patient is not nervous/anxious. Physical Exam: Vitals: 03/18/18 1619 03/18/18 1637 BP: 138/88 (!) 144/96 Pulse: 90 Resp: 15 Temp: 97.7 F (36.5 C) TempSrc: Oral SpO2: 98% Weight: 59.7 kg (131 lb 9.6 oz) Height: 4' 7 Physical Exam Constitutional: She appears well-nourished. No distress. Neck: Carotid bruit is not present. No thyromegaly present. Cardiovascular: Normal rate, regular rhythm, normal heart sounds and intact distal pulses. No murmur heard. Pulmonary/Chest: Breath sounds normal. No respiratory distress. She has no wheezes. She has no rales. Abdominal: Soft. Bowel sounds are normal. She exhibits no distension. There is no tenderness. Musculoskeletal: She exhibits no edema. Assessment & Plan: SNOMED CT(R) 1. Mixed hyperlipidemia MIXED HYPERLIPIDEMIA Comprehensive Metabolic Panel TSH T4, Free Lipid Panel 2. Essential hypertension ESSENTIAL HYPERTENSION 3. Acquired hypothyroidism ACQUIRED HYPOTHYROIDISM 4. Chronic midline low back pain without sciatica CHRONIC LOW BACK PAIN 5. Vitamin D deficiency VITAMIN D DEFICIENCY Vitamin D, Total, 25-OH Hypertension: Suboptimally controlled blood pressure and hence the dose of Norvasc was increased to10 mg daily. Patient was again encouraged for compliance with low-salt diet, regular exercise and also to lose weight. Hypothyroidism: Suboptimally controlled based on latest labs, but patient seems to be asymptomatic clinically. Hence, we will continue same dose of levothyroxine. Repeat TFTs were also ordered today.Will address further management or dose adjustment based on the repeat lab test results. Chronic low back pain: Pain symptoms now seem to be reasonably well controlled with injections in her lower back. Advised to continue to follow-up with pain management, as requested by them. Hyperlipidemia: Seems to be reasonably under control with significant improvement in lipid panel based on the last lipid panel from December. Encouraged for compliance with low-fat and low-cholesteroldiet. Repeat lipid panel was also ordered today. Also order repeat vitamin D level, given patient's history of vitamin D deficiency. Return in about 3 months (around 06/16/2018), or if symptoms worsen or fail to improve. Patient education & instructions given for: Patient was advised and encouraged to avoid smoking, alcohol and any illicit drug abuse. Details of medical condition explained and patient/caregiver was warned about the adverse consequences of uncontrolled medical conditions. Also cautioned about possible common adverse-effects and drug interactions of prescribed/OTC medications and also OTC/herbal supplements. Patient was recommended to review the medication information pamphlets/package inserts for complete list of adverse effects/contraindications, drug interactions etc., before starting any new medication. Patient was advisedto watch for any adverse effects, and instructed to immediately discontinue the medication and callus or go to ER if experiencing any adverse affects from the medications. Advised not to drive/drinkalcohol/use heavy machinery when taking narcotic/other sedating medications. Counseling for diet and exercise provided. All the addressed problems were discussed with the patient and advice given to call with any concerns or return to the office or go to a nearby ER if the symptoms do not improve or worsen or new symptoms develop. Health maintenance/preventive screening reviewed / ordered: Offered age- appropriate preventive services and screening. Patient has a family history of colon cancer and hence she already had a colonoscopy in November [address] Landrum and it was a normal colonoscopy. Hence, next surveillance colonoscopy was recommended in 5 years. [facility] and [facility]. Patient had a hysterectomy. Please note: Portions of this chart may have been created with [employer] voice recognition software. Occasional wrong-word or sound-like substitutions may have occurred due to inherent limitations of the voice recognition software. Please read the chart carefully and recognize, using context, where the substitutions have occurred. Kaci Bassett MD in this encounter* Kaci Bassett MD - 06/18/2018 9:56 AM EDT Lima Juliaaide Jordan 1970 [id number] HPI: Patient was here today for a follow-up on her chronic medical problems. Chronic right-sided low back pain: Patient has been getting injections by the pain management without much relief of her pain symptoms. She has been in pain almost every day. She indicates her pain symptoms to be in the right mid lumbar paraspinal region. She is currently not taking any pain medications for this problem. Would like to try a muscle relaxant. She has tried 6-8 weeks of physical therapy in the past without improvement in her pain symptoms. Hyperlipidemia, hypertension, hypothyroidism: Patient has been compliant with low-fat and low-cholesterol diet now but she was not compliant with the diet when she had the last labs done in March and her last lipid panel from March 2018 showed some significant worsening of the cholesterol with an LDL around 99. Patient's TFTs from March were also abnormal with a low TSH and hence the dose of levothyroxine was further decreased at that time. Patient has been compliant with the decrease in dose of levothyroxine without any adverse effects and denies any active signs and symptoms of hypo-/hyperthyroidism. Has been compliant with hypertension medications and her blood pressure at home hasbeen mostly in the range of 120 135/70 85 now. 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 Hypothyroidism HYPOTHYROIDISM Vitamin D deficiency VITAMIN D DEFICIENCY Spina bifida occulta SPINA BIFIDA OCCULTA Migraine MIGRAINE Mixed hyperlipidemia MIXED HYPERLIPIDEMIA Insomnia INSOMNIA Osteopenia OSTEOPENIA Past Medical History: Diagnosis Date Anemia Endometriosis 1996 Hypertension Hypothyroid Low back pain 06/26/2011 Migraine 06/26/2011 Mixed hyperlipidemia 06/26/2011 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 Spina bifida occulta 06/26/2011 Vitamin D deficiency 12/21/2013 Past Surgical History: Procedure Laterality Date CARPAL TUNNEL RELEASE Right 11/2011 SECTION CHOLECYSTECTOMY 04/2017 CYST REMOVAL 09/2016 back HYSTERECTOMY Social History Socioeconomic History Marital status: Spouse name: Not on file Number of children: Not on file Years of education: Not on file Highest education level: Not on file Social Needs Financial resource strain: Not on file Food insecurity - worry: Never true Food insecurity - inability: Never true Transportation needs - medical: Not on file Transportation needs - non-medical: Not on file Occupational History Not on file Tobacco Use Smoking status: Never Smoker Smokeless tobacco: Never Used Substance and Sexual Activity Alcohol use: Yes Comment: SOCIALLY Drug use: No Sexual activity: Yes Other Topics Concern Not on file Social History Narrative Not on file Family History Problem Relation Age of Onset Heart disease Mother Hypertension Mother Heart attack Mother Stroke Mother Hypertension Father Heart disease Father Diabetes Father Stroke Father Parkinson's Brother Alcohol abuse Brother Review of Systems Constitutional: Negative for appetite change, chills, fatigue, fever and unexpected weight change. Respiratory: Negative for cough, shortness of breath and wheezing. Cardiovascular: Negative for chest pain, palpitations and leg swelling. Gastrointestinal: Negative for abdominal pain, blood in stool, constipation, diarrhea, nausea and vomiting. Endocrine: Negative for cold intolerance, heat intolerance, polydipsia, polyphagia and polyuria. Musculoskeletal: Positive for back pain. Neurological: Negative for dizziness, light-headedness, numbness and headaches. Psychiatric/Behavioral: Negative for dysphoric mood. The patient is not nervous/anxious. Physical Exam: Vitals: 06/18/18 0932 BP: 110/70 Pulse: 88 Resp: 16 Temp: (P) 97.7 F (36.5 C) TempSrc: (P) Oral SpO2: 96% Weight: 59.4 kg (131 lb) Height: 4' 7 Physical Exam Constitutional: She appears well-nourished. No distress. Neck: Carotid bruit is not present. No thyromegaly present. Cardiovascular: Normal rate, regular rhythm, normal heart sounds and intact distal pulses. No murmur heard. Pulmonary/Chest: Breath sounds normal. No respiratory distress. She has no wheezes. She has no rales. Abdominal: Soft. She exhibits no distension. There is no tenderness. Musculoskeletal: She exhibits no edema. Lower back: Positive right mid lumbar paraspinal tenderness, no significant spinal tenderness Assessment & Plan: OMED CT(R) 1. Essential hypertension ESSENTIAL HYPERTENSION CBC and Differential Comprehensive Metabolic Panel 2. Acquired hypothyroidism ACQUIRED HYPOTHYROIDISM TSH T4, Free Lipid Panel 3. Mixed hyperlipidemia MIXED HYPERLIPIDEMIA 4. Chronic right-sided low back pain without sciatica CHRONIC LOW BACK PAIN CT Abdomen Pelvis Without Contrast Hypertension: Seems to be under control now. Continue same medication regimen. Hypothyroidism: Suboptimally controlled based on last TFTs and hence the dose of levothyroxine was adjusted at that time. Continue same medication for now. Repeat TFTs were also ordered today. Hyperlipidemia: Still reasonably under control though some significant worsening of the lipid panel, possibly secondary to noncompliance with low-fat and low- cholesterol diet. Patient now claims thatshe has been compliant with the diet now after her last labs from March. Repeat lipid panel was also ordered today. She was again counseled for proper diet and stressed on compliance. Chronic right-sided lower back pain: Possibly secondary to muscle strain/spasm. I have had a long discussion with various possible etiology for her symptoms and reviewed her MRIs from 2018 and discussed the results with her. Also ordered a CT scan of the abdomen and pelvis to rule out any other intra-abdominal pathology leading to her pain symptoms. Patient was given a prescription for tizanidinefor as needed use. I have discussed and offered him a referral to physical therapy which patient deferred at this time. Return in about 3 months (around 09/17/2018), or if symptoms worsen or fail to improve. Patient education & instructions given for: Patient was advised and encouraged to avoid smoking, alcohol and any illicit drug abuse. Details of medical condition explained and patient/caregiver was warned about the adverse consequences of uncontrolled medical conditions. Also cautioned about possible common adverse-effects and drug interactions of prescribed/OTC medications and also OTC/herbal supplements. Patient was recommended to review the medication information pamphlets/package inserts for complete list of adverse effects/contraindications, drug interactions etc., before starting any new medication. Patient was advisedto watch for any adverse effects, and instructed to immediately discontinue the medication and callus or go to ER if experiencing any adverse affects from the medications. Advised not to drive/drinkalcohol/use heavy machinery when taking narcotic/other sedating medications. Counseling for diet and exercise provided. All the addressed problems were discussed with the patient and advice given to call with any concerns or return to the office or go to a nearby ER if the symptoms do not improve or worsen or new symptoms develop. Health maintenance/preventive screening reviewed / ordered: Offered age- appropriate preventive services and screening. Patient has a family history of colon cancer and hence she already had a colonoscopy in November [address] Landrum and it was a normal colonoscopy. Hence, next surveillance colonoscopy was recommended in 5 years. [facility] and screening. Patient had a hysterectomy. Please note: Portions of this chart may have been created with [employer] voice recognition software. Occasional wrong-word or sound-like substitutions may have occurred due to inherent limitations of the voice recognition software. Please read the chart carefully and recognize, using context, where the substitutions have occurred. Kaci Bassett MD in this encounter* Alise Sprague, SENIOR COMPUTER SPECIALIST - 10/12/2018 10:42 AM EDT OFFICE VISIT PROGRESS NOTE HPI Patient presents to the office for a new patient visit to discuss her chronic right hip pain. She is a former patient of Dr. Bassett [facility]. She states she fell onto the hip that caused a large knot to the groin that resolved on its own in 2017 but her hip pain has progressively worsened over the last 9 months. Hip pain is worse with external rotation of the right hip. She completed 6 weeks of physical therapy and had injections with Dr. Balderas with no relief of her symptoms. Hip Pain The incident occurred more than 1 week ago (8 months ago). The injury mechanism was a fall (Fall inJuly 2016). The pain is present in the right hip. The quality of the pain is described as aching. The pain has been constant since onset. Associated symptoms include a loss of motion, numbness and tingling. Pertinent negatives include no inability to bear weight, loss of sensation or muscle weakness. She reports no foreign bodies present. Exacerbated by: flex with sex. She has tried ice and NSAIDs (PT at [facility] or 6 weeks) for the symptoms. The treatment provided mild relief. The following portions of the patient's history were reviewed and updated as appropriate: allergies, current medications and problem list. Family History Problem Relation Age of Onset Heart disease Mother Hypertension Mother Heart attack Mother Stroke Mother Hypertension Father Heart disease Father Diabetes Father Stroke Father Parkinson's Brother Alcohol abuse Brother Colon cancer Maternal Grandmother COPD Paternal Grandmother COPD Paternal Grandfather Social History Socioeconomic History Marital status: Spouse name: Not on file Number of children: Not on file Years of education: Not on file Highest education level: Not on file Occupational History Not on file Social Needs Financial resource strain: Not on file Food insecurity: Worry: Never true Inability: Never true Transportation needs: Medical: Not on file Non-medical: Not on file Tobacco Use Smoking status: Never Smoker Smokeless tobacco: Never Used Substance and Sexual Activity Alcohol use: Yes Comment: SOCIALLY Drug use: No Sexual activity: Yes Partners: Male Lifestyle Physical activity: Days per week: Not on file Minutes per session: Not on file Stress: Not on file Relationships Social connections: Talks on phone: Not on file Gets together: Once a week Attends adventism service: Not on file Active member of club or organization: Not on file Attends meetings of clubs or organizations: Not on file Relationship status: Not on file Other Topics Concern Not on file Social History Narrative Not on file Past Surgical History: Procedure Laterality Date CARPAL TUNNEL RELEASE Right 11/2011 SECTION CHOLECYSTECTOMY 04/2017 CYST REMOVAL 09/2016 back HYSTERECTOMY Allergies Allergen Reactions Bee Venom Protein (Honey Bee) Hives Asa [Aspirin] GI Intolerance Caffeine Other (See Comments) anxiety Ct: Iodinated Contrast- Oral And Iv Dye Hives Morphine Hives Oxycodone-Acetaminophen Stated I can't function Penicillins Hives Red Dye Sulfamethoxazole GI Intolerance GI problems Bactrim Trimethoprim GI Intolerance GI problems Bactrim Patient's Medications New Prescriptions No medications on file Previous Medications AMITRIPTYLINE (ELAVIL) 25 MG TABLET Take 25 mg by mouth nightly. AMLODIPINE (NORVASC) 10 MG TABLET Take 1 (one) tablet (10 mg total) by mouth daily . CHOLECALCIFEROL, VITAMIN D3, (VITAMIN D3) 5,000 UNIT TAB TABLET Take 1 (one) tablet (5,000 Units total) by mouth daily . ESTRADIOL (ESTRACE) 2 MG TABLET Take 2 mg by mouth daily . LEVOTHYROXINE (SYNTHROID, LEVOTHROID) 100 MCG TABLET Take 1 (one) tablet (100 mcg total) by mouth once daily . LISINOPRIL (PRINIVIL,ZESTRIL) 40 MG TABLET Take 1 (one) tablet (40 mg total) by mouth daily . TIZANIDINE (ZANAFLEX) 4 MG TABLET Take 1 (one) tablet (4 mg total) by mouth every 8 (eight) hours as needed for muscle spasms . ZINC GLUCONATE 100 MG TAB Take by mouth daily . Modified Medications No medications on file Discontinued Medications LISINOPRIL (PRINIVIL,ZESTRIL) 30 MG TABLET Take 30 mg by mouth daily . POTASSIUM ORAL Take 600 mg by mouth daily . TRAZODONE (DESYREL) 50 MG TABLET Take 100 mg by mouth nightly as needed for sleep. Review of Systems Review of Systems Constitutional: Positive for fatigue. Negative for activity change and chills. HENT: Negative. Eyes: Negative. Respiratory: Negative. Negative for cough, chest tightness, shortness of breath and wheezing. Cardiovascular: Negative for chest pain, palpitations and leg swelling. Gastrointestinal: Negative. Negative for abdominal pain. Genitourinary: Negative. Musculoskeletal: Positive for arthralgias, back pain, gait problem and myalgias. Negative for jointswelling. Skin: Negative. Allergic/Immunologic: Negative. Neurological: Positive for tingling and numbness. Negative for weakness. Psychiatric/Behavioral: Negative. Vitals: 10/12/18 1012 10/12/18 1019 BP: (!) 144/87 115/75 BP Location: Right arm Right arm Patient Position: Sitting Sitting BP Cuff Size: Adult Adult Pulse: 92 Resp: 18 Temp: 98.5 F (36.9 C) TempSrc: Temporal SpO2: (!) 18% Weight: 59.9 kg (132 lb 1.6 oz) Body mass index is 30.7 kg/m . Physical Exam Physical Exam Constitutional: She is oriented to person, place, and time. She appears well- developed and well-nourished. HENT: Head: Normocephalic and atraumatic. Eyes: Conjunctivae are normal. Neck: Normal range of motion. No thyromegaly present. Cardiovascular: Normal rate, regular rhythm, normal heart sounds and intact distal pulses. Pulmonary/Chest: Effort normal and breath sounds normal. Abdominal: Soft. Bowel sounds are normal. Neurological: She is alert and oriented to person, place, and time. Skin: Skin is warm and dry. Psychiatric: She has a normal mood and affect. Nursing note and vitals reviewed. Assessment/Plan Problem List Items Addressed This Visit Endocrine Hypothyroidism Relevant Orders TSH with Reflex Free T4 Other Mixed hyperlipidemia I have ordered blood work for you to have completed. Please have this completed at 7 days before your next appointment. This blood work will need to be completed while fasting. This means nothing to eat or drink for 6-8 hours prior to having it drawn. You can however, drink water and take medications as ordered during this time. I will review your labs via [facility] [employer] or the office will with your results. Relevant Orders CBC and Differential Comprehensive Metabolic Panel Lipid Panel Other Visit Diagnoses Chronic right hip pain - Primary Relevant Orders MR Hip Right With Contrast Goals None For any new medications prescribed today, patient was educated about indications for the medication, how to take the medication and potential side effects of the medications. documented in this encounter* Alise Sprague CNP - 12/20/2018 8:38 AM EDT OFFICE VISIT PROGRESS NOTE HPI Patient is a pleasant 48-year-old female with medical history of hypothyroidism, hypertension, stroke, migraine, spina bifida, osteopenia, menopausal syndrome, vitamin D deficiency, hyperlipidemia, insomnia, and chronic right hip pain. She presents to the office for review of her chronic care and medication refills. Hypertension- Chronic, stable. Well controlled on her current medication of lisinopril 40 mg once daily and Norvasc 10 mg once daily. Patient takes her medication daily as prescribed, denies side effects. She does monitor her blood pressure 2-3 times per week with stated average of 110/60. Denies formal exercise, generally healthy diet. Hypothyroidism- Chronic, stable. Currently treated with Levothyroxine 100 mg daily. She is taking nightly, instead of in the morning. She does not like taking the medication in the morning, states understanding that this is not the recommended time for taking this medication. Last TSH level was completed on 06/21/18 with a level of 0.64, T4 1.1. She denies hair loss, fatigue, and cold intolerance. Menopause- Chronic, stable. Currently treated with Estrace 2 mg once daily. Mammogram is [id number] 03/16/2018. Patient takes medication as prescribed and tolerates this well. Denies side effects. She does have mild hot flashes and mood fluctuations, the patient are controlled on her current dose. The following portions of the patient's history were reviewed and updated as appropriate: allergies, current medications and problem list. Family History Problem Relation Age of Onset Heart disease Mother Hypertension Mother Heart attack Mother Stroke Mother Hypertension Father Heart disease Father Diabetes Father Stroke Father Parkinson's Brother Alcohol abuse Brother Colon cancer Maternal Grandmother COPD Paternal Grandmother COPD Paternal Grandfather Social History Socioeconomic History Marital status: Spouse name: Not on file Number of children: Not on file Years of education: Not on file Highest education level: Not on file Occupational History Not on file Social Needs Financial resource strain: Not on file Food insecurity: Worry: Never true Inability: Never true Transportation needs: Medical: Not on file Non-medical: Not on file Tobacco Use Smoking status: Never Smoker Smokeless tobacco: Never Used Substance and Sexual Activity Alcohol use: Yes Comment: SOCIALLY Drug use: No Sexual activity: Yes Partners: Male Lifestyle Physical activity: Days per week: Not on file Minutes per session: Not on file Stress: Not on file Relationships Social connections: Talks on phone: Not on file Gets together: Once a week Attends adventism service: Not on file Active member of club or organization: Not on file Attends meetings of clubs or organizations: Not on file Relationship status: Not on file Other Topics Concern Not on file Social History Narrative Not on file Past Surgical History: Procedure Laterality Date CARPAL TUNNEL RELEASE Right 11/2011 SECTION CHOLECYSTECTOMY 04/2017 CYST REMOVAL 09/2016 back HYSTERECTOMY Allergies Allergen Reactions Bee Venom Protein (Honey Bee) Hives Asa [Aspirin] GI Intolerance Caffeine Other (See Comments) anxiety Ct: Iodinated Contrast- Oral And Iv Dye Hives Morphine Hives Oxycodone-Acetaminophen Stated I can't function Penicillins Hives Red Dye Sulfamethoxazole GI Intolerance GI problems Bactrim Trimethoprim GI Intolerance GI problems Bactrim Patient's Medications New Prescriptions No medications on file Previous Medications AMITRIPTYLINE (ELAVIL) 25 MG TABLET Take 25 mg by mouth nightly. AMLODIPINE (NORVASC) 5 MG TABLET Take 2 (two) tablets (10 mg total) by mouth daily . CHOLECALCIFEROL, VITAMIN D3, (VITAMIN D3) 5,000 UNIT TAB TABLET Take 1 (one) tablet (5,000 Units total) by mouth daily . TIZANIDINE (ZANAFLEX) 4 MG TABLET Take 1 (one) tablet (4 mg total) by mouth every 8 (eight) hours as needed for muscle spasms . ZINC GLUCONATE 100 MG TAB Take by mouth daily . Modified Medications Modified Medication Previous Medication ESTRADIOL (ESTRACE) 2 MG TABLET estradiol (ESTRACE) 2 MG tablet Take 1 (one) tablet (2 mg total) by mouth daily . Take 1 (one) tablet (2 mg total) by mouth daily . LEVOTHYROXINE (SYNTHROID, LEVOTHROID) 100 MCG TABLET levothyroxine (SYNTHROID, LEVOTHROID) 100 MCG tablet Take 1 (one) tablet (100 mcg total) by mouth once daily . Take 1 (one) tablet (100 mcg total) by mouth once daily . LISINOPRIL (PRINIVIL,ZESTRIL) 40 MG TABLET lisinopril (PRINIVIL,ZESTRIL) 40 MG tablet Take 1 (one) tablet (40 mg total) by mouth daily . Take 1 (one) tablet (40 mg total) by mouth daily. Discontinued Medications CIPROFLOXACIN HCL (CILOXAN) 0.3 % OPHTHALMIC SOLUTION 1 drop q 2 hours, while awake, for 2 days. Then 1 drop, every 4 hours, while awake, for the next 5 days. . Review of Systems Review of Systems Constitutional: Positive for fatigue. Negative for activity change, chills and fever. HENT: Negative. Eyes: Negative. Respiratory: Negative. Negative for cough, chest tightness, shortness of breath and wheezing. Cardiovascular: Negative for chest pain, palpitations and leg swelling. Gastrointestinal: Negative. Negative for abdominal pain. Endocrine: Negative for cold intolerance, heat intolerance, polydipsia, polyphagia and polyuria. Genitourinary: Negative. Musculoskeletal: Positive for arthralgias, back pain and gait problem. Negative for joint swelling. Chronic hip pain, appointment scheduled with Dr. Weber in January Skin: Negative. Allergic/Immunologic: Negative. Neurological: Positive for numbness. Negative for weakness. Psychiatric/Behavioral: Negative. Vitals: 12/20/18 0827 BP: 115/72 BP Location: Right arm Patient Position: Sitting BP Cuff Size: Adult Pulse: 72 Resp: 16 Temp: 98.2 F (36.8 C) TempSrc: Temporal SpO2: 97% Weight: 62.1 kg (136 lb 14.4 oz) Height: 4' 7 Body mass index is 31.82 kg/m . Physical Exam Physical Exam Constitutional: She is oriented to person, place, and time. She appears well- developed and well-nourished. No distress. HENT: Head: Normocephalic and atraumatic. Neck: Normal range of motion. Carotid bruit is not present. No thyromegaly present. Cardiovascular: Normal rate, regular rhythm, normal heart sounds and intact distal pulses. Exam reveals no gallop and no friction rub. No murmur heard. Pulmonary/Chest: Effort normal and breath sounds normal. No respiratory distress. She has no wheezes. She has no rales. Abdominal: Soft. Bowel sounds are normal. She exhibits no distension. There is no tenderness. Musculoskeletal: Normal range of motion. General: No edema. Neurological: She is alert and oriented to person, place, and time. Skin: Skin is warm and dry. Psychiatric: She has a normal mood and affect. Her behavior is normal. Judgment and thought contentnormal. Nursing note and vitals reviewed. Assessment/Plan Problem List Items Addressed This Visit Endocrine Hypothyroidism Continue meds as prescribed, watch diet, and increase activity as able to tolerate. Relevant Medications levothyroxine (SYNTHROID, LEVOTHROID) 100 MCG tablet Other Relevant Orders TSH with Reflex Free T4 Cardiovascular and Mediastinum Hypertension - Primary Stable, continue meds, increase activity as can tolerate, limit salt, and watch diet. Continue to monitor blood pressure at home as instructed. Bring blood pressure log and cuff to your next visit. I have ordered blood work for you to have completed. Please have this completed one week before your next appointment in 6 months. This blood work will need to be completed while fasting. This means nothing to eat or drink for 6-8 hours prior to having it drawn. You can however, drink water and take medications as ordered during this time. I will review your labs via [employer] or the office will with your results. Relevant Medications lisinopril (PRINIVIL,ZESTRIL) 40 MG tablet Other Relevant Orders CBC and Differential Comprehensive Metabolic Panel Lipid Panel Other Postartificial menopausal syndrome Continue meds as prescribed, watch diet, and increase activity as able to tolerate. Relevant Medications estradiol (ESTRACE) 2 MG tablet Goals Blood Pressure < 140/90 High blood pressure makes your heart work too hard. It can cause heart attack, stroke and kidney disease. Blood pressure goal is 140/90 or less. You will complete 150 minutes of formal exercise per week. You will maintain a BMI of 18.5-24.9 TOTAL CHOLESTEROL < 199 Total cholesterol goal is less than 199 Triglyceride goal is less than 150 HDL or good cholesterol is above 45 LDL goal is less than 100 For any new medications prescribed today, patient was educated about indications for the medication, how to take the medication and potential side effects of the medications. Please note: Portions of this chart may have been created with [employer] voice recognition software. Occasional wrong-word or sound-like substitutions may have occurred due to inherent limitations of the voice recognition software. Please read the chart carefully and recognize, using context, where the substitutions have occurred. documented in this encounter* Jennifer Weber MD - 01/03/2019 8:22 AM EDT Dictation on: 01/03/2019 8:26 AM by: JENNIFER WEBER [[id number]] documented in this encounter* Alise Sprague CNP - 04/21/2019 2:17 PM EST OFFICE VISIT PROGRESS NOTE HPI Patient is a pleasant 48 y.o. female with a past medical history hypothyroidism, CVA, migraine, hypertension, spina bifida, osteopenia, vitamin D deficiency, menopausal syndrome, mixed hyperlipidemia, insomnia, chronic hip pain presenting to the office with complaints of right ear pain that began 2days ago suddenly Ear pain- Onset: New, worsening Symptoms: Right ear pain that began 2 days ago and is significantly worsened over the last 2 days patient states she has had a fever of 100.6 and is using Motrin and Tylenol to help with pain and fever. She is having mild hearing loss to this right ear along with yellow drainage when she wakes in the morning. Pain: 6 out of 10 right ear pain described as stabbing that is radiating into the temporal region and into her neck with mild facial swelling Treatment: Tylenol Motrin without relief of pain but is controlling fever The following portions of the patient's history were reviewed and updated as appropriate: allergies, current medications and problem list. Family History Problem Relation Age of Onset Heart disease Mother Hypertension Mother Heart attack Mother Stroke Mother Hypertension Father Heart disease Father Diabetes Father Stroke Father Parkinson's Brother Alcohol abuse Brother Colon cancer Maternal Grandmother COPD Paternal Grandmother COPD Paternal Grandfather Social History Socioeconomic History Marital status: Spouse name: Not on file Number of children: Not on file Years of education: Not on file Highest education level: Not on file Occupational History Not on file Social Needs Financial resource strain: Not on file Food insecurity Worry: Never true Inability: Never true Transportation needs Medical: Not on file Non-medical: Not on file Tobacco Use Smoking status: Never Smoker Smokeless tobacco: Never Used Substance and Sexual Activity Alcohol use: Yes Comment: SOCIALLY Drug use: No Sexual activity: Yes Partners: Male Lifestyle Physical activity Days per week: Not on file Minutes per session: Not on file Stress: Not on file Relationships Social connections Talks on phone: Not on file Gets together: Once a week Attends adventism service: Not on file Active member of club or organization: Not on file Attends meetings of clubs or organizations: Not on file Relationship status: Not on file Other Topics Concern Not on file Social History Narrative Not on file Past Surgical History: Procedure Laterality Date CARPAL TUNNEL RELEASE Right 11/2011 SECTION CHOLECYSTECTOMY 04/2017 CYST REMOVAL 09/2016 back HYSTERECTOMY Allergies Allergen Reactions Bee Venom Protein (Honey Bee) Hives Asa [Aspirin] GI Intolerance Caffeine Other (See Comments) anxiety Ct: Iodinated Contrast- Oral And Iv Dye Hives Morphine Hives Oxycodone-Acetaminophen Stated I can't function Penicillins Hives Red Dye Sulfamethoxazole GI Intolerance GI problems Bactrim Trimethoprim GI Intolerance GI problems Bactrim Patient's Medications New Prescriptions CIPROFLOXACIN-DEXAMETHASONE (CIPRODEX) OTIC SUSPENSION Administer 4 (four) drops to the right ear 2(two) times a day for 7 days . DOXYCYCLINE HYCLATE (VIBRA-TABS) 100 MG TABLET Take 1 (one) tablet (100 mg total) by mouth 2 (two) times a day for 10 days . FLUCONAZOLE (DIFLUCAN) 150 MG TABLET Take 1 (one) tablet (150 mg total) by mouth every other day for 3 doses . Previous Medications AMITRIPTYLINE (ELAVIL) 25 MG TABLET Take 25 mg by mouth nightly. AMLODIPINE (NORVASC) 5 MG TABLET Take 2 (two) tablets (10 mg total) by mouth daily . CHOLECALCIFEROL, VITAMIN D3, (VITAMIN D3) 5,000 UNIT TAB TABLET Take 1 (one) tablet (5,000 Units total) by mouth daily . ESTRADIOL (ESTRACE) 2 MG TABLET Take 1 (one) tablet (2 mg total) by mouth daily . LEVOTHYROXINE (SYNTHROID, LEVOTHROID) 100 MCG TABLET Take 1 (one) tablet (100 mcg total) by mouth once daily . LISINOPRIL (PRINIVIL,ZESTRIL) 40 MG TABLET Take 1 (one) tablet (40 mg total) by mouth daily . PROPRANOLOL (INDERAL LA) 60 MG 24 HR CAPSULE TIZANIDINE (ZANAFLEX) 4 MG TABLET Take 1 (one) tablet (4 mg total) by mouth every 8 (eight) hours as needed for muscle spasms . ZINC GLUCONATE 100 MG TAB Take by mouth daily . Modified Medications No medications on file Discontinued Medications No medications on file Review of Systems Review of Systems Constitutional: Positive for chills, fatigue and fever. Negative for unexpected weight change. HENT: Positive for ear discharge, ear pain, hearing loss and postnasal drip. Negative for congestion, rhinorrhea, sinus pressure, sinus pain and sore throat. Eyes: Negative for pain, redness and visual disturbance. Respiratory: Negative for cough, shortness of breath and wheezing. Cardiovascular: Negative for chest pain and palpitations. Gastrointestinal: Positive for nausea. Negative for abdominal pain, constipation and diarrhea. Genitourinary: Negative. Musculoskeletal: Positive for myalgias. Skin: Positive for pallor. Neurological: Negative for dizziness, light-headedness and numbness. Hematological: Positive for adenopathy. Psychiatric/Behavioral: Positive for sleep disturbance. Vitals: 04/21/19 1400 BP: (!) 98/56 BP Location: Right arm Patient Position: Sitting BP Cuff Size: Adult Pulse: 63 Resp: 16 Temp: 99.2 F (37.3 C) TempSrc: Temporal SpO2: 97% Weight: 61.1 kg (134 lb 12.8 oz) Body mass index is 31.33 kg/m . Physical Exam Physical Exam Vitals signs and nursing note reviewed. Constitutional: General: She is in acute distress. Appearance: Normal appearance. She is ill-appearing. She is not toxic-appearing. HENT: Head: Normocephalic and atraumatic. Right Ear: Decreased hearing noted. Drainage and tenderness present. A middle ear effusion is present. There is mastoid tenderness. Tympanic membrane is erythematous and bulging. Tympanic membrane isnot perforated. Tympanic membrane has decreased mobility. Left Ear: External ear normal. No tenderness. No middle ear effusion. Tympanic membrane is erythematous. Tympanic membrane is not bulging. Tympanic membrane has normal mobility. Nose: Congestion present. Mouth/Throat: Mouth: Mucous membranes are moist. Pharynx: Posterior oropharyngeal erythema present. No oropharyngeal exudate. Tonsils: No tonsillar exudate. Eyes: Conjunctiva/sclera: Conjunctivae normal. Neck: Musculoskeletal: No neck rigidity or muscular tenderness. Cardiovascular: Rate and Rhythm: Normal rate and regular rhythm. Heart sounds: Normal heart sounds. Pulmonary: Effort: Pulmonary effort is normal. Breath sounds: Normal breath sounds. Abdominal: General: Bowel sounds are normal. Palpations: Abdomen is soft. Lymphadenopathy: Cervical: Cervical adenopathy present. Skin: General: Skin is warm. Capillary Refill: Capillary refill takes less than 2 seconds. Coloration: Skin is pale. Neurological: General: No focal deficit present. Mental Status: She is alert and oriented to person, place, and time. Motor: No weakness. Coordination: Coordination normal. Gait: Gait normal. Deep Tendon Reflexes: Reflexes normal. Assessment/Plan Problem List Items Addressed This Visit None Visit Diagnoses Otitis externa, unspecified chronicity, unspecified laterality, unspecified type - Primary Start your oral antibiotic and eardrops today. If symptoms worsen or your hearing loss worsens you need to go to the nearest emergency department. Relevant Medications doxycycline hyclate (VIBRA-TABS) 100 MG tablet ciprofloxacin-dexamethasone (CIPRODEX) otic suspension Right otitis media, unspecified otitis media type Relevant Medications doxycycline hyclate (VIBRA-TABS) 100 MG tablet ciprofloxacin-dexamethasone (CIPRODEX) otic suspension Antibiotic-induced yeast infection Relevant Medications fluconazole (DIFLUCAN) 150 MG tablet Goals Blood Pressure < 140/90 High blood pressure makes your heart work too hard. It can cause heart attack, stroke and kidney disease. Blood pressure goal is 140/90 or less. You will complete 150 minutes of formal exercise per week. You will maintain a BMI of 18.5-24.9 TOTAL CHOLESTEROL < 199 Total cholesterol goal is less than 199 Triglyceride goal is less than 150 HDL or good cholesterol is above 45 LDL goal is less than 100 For any new medications prescribed today, patient was educated about indications for the medication, how to take the medication and potential side effects of the medications. Please note: Portions of this chart may have been created with [employer] voice recognition software. Occasional wrong-word or sound-like substitutions may have occurred due to inherent limitations of the voice recognition software. Please read the chart carefully and recognize, using context, where the substitutions have occurred. documented in this encounter* Darcie Alise Dallas, SENIOR COMPUTER SPECIALIST - 09/26/2019 8:20 AM EDT OFFICE VISIT PROGRESS NOTE HPI Patient is a pleasant 48 y.o. female with a past medical history of hypothyroidism, hypertension, migraine, stroke, spina bifida, osteopenia, chronic right hip pain, insomnia, hyperlipidemia, menopause, and vitamin D deficiency presenting to the office for chronic care management. She does have a history of chronic pain to the spine and hip region. She is seeing [facility] chiropractic office with improved pain control. Chiropractor recommends a possible breast reduction due to mass and density of her breasts that limit her ability to exercise and worsen her back pain. Patient is agreeable to possible breast reduction in order to improve her ability to exercise and reduce her pain. Ear pain Onset: Chronic, reoccurring Symptoms: Bilateral ear pain and fullness that wax and wanes. Symptoms worsen after showering and swimming. Treated for otitis media and externa 3 times in the last year at this office and urgent care providers. Pain: Denies pain at today's appointment Treatment: Otitis media treated with antibiotic therapy. She attempts to prevent fluid in her ears during shower and with swimming. HRT: Started: 2-3 years Symptoms included: Hot flashes, mood swings Medication: Estrace 2 mg daily Any vaginal bleeding? Denies Hx of DVT/PE? Denies Hx of breast cancer? Denies Last Lipid panel: 06/21/2018 Last mammogram: 04/28/2019 Hypertension Onset: Chronic, stable Self monitoring: Monitors blood pressure weekly-average blood pressure 115/80 Symptoms: Denies chest pain, shortness of breath, palpitations, headaches Pain: Denies pain Treatment: Propranolol 60 mg daily, lisinopril 40 mg daily, Norvasc 10 mg daily Effectiveness: Blood pressure well controlled Adherence: Takes daily as prescribed Adverse effects: Tolerates well, denies side effects The following portions of the patient's history were reviewed and updated as appropriate: allergies, current medications and problem list. Family History Problem Relation Age of Onset Heart disease Mother Hypertension Mother Heart attack Mother Stroke Mother Hypertension Father Heart disease Father Diabetes Father Stroke Father Parkinson's Brother Alcohol abuse Brother Colon cancer Maternal Grandmother COPD Paternal Grandmother COPD Paternal Grandfather Social History Socioeconomic History Marital status: Spouse name: Not on file Number of children: Not on file Years of education: Not on file Highest education level: Not on file Occupational History Not on file Social Needs Financial resource strain: Not on file Food insecurity Worry: Never true Inability: Never true Transportation needs Medical: Not on file Non-medical: Not on file Tobacco Use Smoking status: Never Smoker Smokeless tobacco: Never Used Substance and Sexual Activity Alcohol use: Yes Comment: SOCIALLY Drug use: No Sexual activity: Yes Partners: Male Lifestyle Physical activity Days per week: Not on file Minutes per session: Not on file Stress: Not on file Relationships Social connections Talks on phone: Not on file Gets together: Once a week Attends adventism service: Not on file Active member of club or organization: Not on file Attends meetings of clubs or organizations: Not on file Relationship status: Not on file Other Topics Concern Not on file Social History Narrative Not on file Past Surgical History: Procedure Laterality Date CARPAL TUNNEL RELEASE Right 11/2011 SECTION CHOLECYSTECTOMY 04/2017 CYST REMOVAL 09/2016 back HYSTERECTOMY Allergies Allergen Reactions Bee Venom Protein (Honey Bee) Hives Asa [Aspirin] GI Intolerance Caffeine Other (See Comments) anxiety Ct: Iodinated Contrast- Oral And Iv Dye Hives Morphine Hives Oxycodone-Acetaminophen Stated I can't function Penicillins Hives Red Dye Sulfamethoxazole GI Intolerance GI problems Bactrim Trimethoprim GI Intolerance GI problems Bactrim Patient's Medications New Prescriptions No medications on file Previous Medications AMITRIPTYLINE (ELAVIL) 25 MG TABLET Take 25 mg by mouth nightly. AMLODIPINE (NORVASC) 10 MG TABLET Take 1 (one) tablet (10 mg total) by mouth daily . CHOLECALCIFEROL, VITAMIN D3, (VITAMIN D3) 5,000 UNIT TAB TABLET Take 1 (one) tablet (5,000 Units total) by mouth daily . LEVOTHYROXINE (SYNTHROID, LEVOTHROID) 100 MCG TABLET Take 1 (one) tablet (100 mcg total) by mouth once daily . LISINOPRIL (PRINIVIL,ZESTRIL) 40 MG TABLET Take 1 (one) tablet (40 mg total) by mouth daily . PROPRANOLOL (INDERAL LA) 60 MG 24 HR CAPSULE TIZANIDINE (ZANAFLEX) 4 MG TABLET Take 8 mg by mouth nightly . ZINC GLUCONATE 100 MG TAB Take by mouth daily . Modified Medications Modified Medication Previous Medication ESTRADIOL (ESTRACE) 2 MG TABLET estradiol (ESTRACE) 2 MG tablet Take 1 (one) tablet (2 mg total) by mouth daily . Take 1 (one) tablet (2 mg total) by mouth daily . Discontinued Medications No medications on file Review of Systems Review of Systems Constitutional: Positive for fatigue. Negative for activity change and chills. HENT: Negative. Eyes: Negative. Respiratory: Negative. Negative for cough, chest tightness, shortness of breath and wheezing. Cardiovascular: Negative for chest pain, palpitations and leg swelling. Gastrointestinal: Negative. Negative for abdominal pain. Genitourinary: Negative. Musculoskeletal: Positive for arthralgias, back pain, gait problem and myalgias. Negative for jointswelling. Skin: Negative. Allergic/Immunologic: Negative. Neurological: Positive for numbness. Negative for weakness. Psychiatric/Behavioral: Negative. Vitals: 09/26/19 0819 BP: 113/79 BP Location: Left arm Patient Position: Sitting BP Cuff Size: Adult Pulse: 86 Resp: 17 Temp: 98.1 F (36.7 C) TempSrc: Oral SpO2: 98% Weight: 60.4 kg (133 lb 1.6 oz) Body mass index is 30.94 kg/m . Physical Exam Physical Exam Vitals signs and nursing note reviewed. Constitutional: Appearance: Normal appearance. She is well-developed. HENT: Head: Normocephalic and atraumatic. Right Ear: Hearing, ear canal and external ear normal. A middle ear effusion is present. Left Ear: Hearing, ear canal and external ear normal. A middle ear effusion is present. Eyes: Conjunctiva/sclera: Conjunctivae normal. Neck: Musculoskeletal: Normal range of motion. Thyroid: No thyromegaly. Cardiovascular: Rate and Rhythm: Normal rate and regular rhythm. Heart sounds: Normal heart sounds. Pulmonary: Effort: Pulmonary effort is normal. Breath sounds: Normal breath sounds. Abdominal: General: Bowel sounds are normal. Palpations: Abdomen is soft. Skin: General: Skin is warm and dry. Capillary Refill: Capillary refill takes less than 2 seconds. Neurological: Mental Status: She is alert and oriented to person, place, and time. Motor: No weakness. Gait: Gait normal. Psychiatric: Mood and Affect: Mood normal. Assessment/Plan Problem List Items Addressed This Visit Cardiovascular and Mediastinum Hypertension Stable, continue meds, increase activity as can tolerate, limit salt, and watch diet. Continue to monitor blood pressure at home as instructed. Bring blood pressure log and cuff to your next visit. Other Postartificial menopausal syndrome Continue meds as prescribed, watch diet, and increase activity as able to tolerate. Relevant Medications estradioL (ESTRACE) 2 MG tablet Other Visit Diagnoses Chronic pain of both ears - Primary Dr. Banks's office will call you to schedule an appointment for evaluation of your chronic reoccurring otitis media. Relevant Orders Ambulatory referral to ENT Large mass of breast Dr. Sanchez's office will call you to schedule an appointment for assessment for possible breast reduction Relevant Orders Ambulatory referral to Plastic Surgery Goals Blood Pressure < 140/90 High blood pressure makes your heart work too hard. It can cause heart attack, stroke and kidney disease. Blood pressure goal is 140/90 or less. You will complete 150 minutes of formal exercise per week. You will maintain a BMI of 18.5-24.9 TOTAL CHOLESTEROL < 199 Total cholesterol goal is less than 199 Triglyceride goal is less than 150 HDL or good cholesterol is above 45 LDL goal is less than 100 For any new medications prescribed today, patient was educated about indications for the medication, how to take the medication and potential side effects of the medications. Please note: Portions of this chart may have been created with [employer] voice recognition software. Occasional wrong-word or sound-like substitutions may have occurred due to inherent limitations of the voice recognition software. Please read the chart carefully and recognize, using context, where the substitutions have occurred. documented in this encounter* Tierney Saleem CNP - 10/04/2019 2:47 PM EDT ENT New Patient Visit Patient Name: Lima Jordan MR #: [id number] : 1970 Physicians: Alise Sprague CNP (Family); Alise Sprague CNP (Referring) Chief Complaint/Reason for Visit: Bilateral ear pain, recurrent ear infections History of Present Illness: Lima Jordan is a 48 y.o. y/o female presenting from her primary care provider with c/o bilateral ear pain, recurrent ear infections. Patient reports history of recurrent ear infections as a child, she denies ever having ear tubes. She reports chronic ear pain & recurrent ear infections over the past few months. Patient reportslon has been treated for bilateral otitis media & ear drainage in April with Ciprodex ear drops, Doxycycline & Flonase. She was treated for recurrent infection by Lana approximately 5-6 weeks ago with Bactrim & antibiotic ear drops. She reports a constant dull aching in bilateral ears, frequent cracking & popping sounds inside the ears, decreased hearing, & the sensation of being under water. She previously had green foul drainage from the ears, which has since resolved.Patient reports she has a pool at home & swims frequently. Her ears are sensitive to water whenshe is swimming & when she takes a shower. She denies any associated nasal congestion, sinus pre ssure, runny nose, allergy symptoms, recent fevers or sinus infections. She denies history of hearing loss, or trauma to the ears. She has history of loud noise exposure for approximately 20 years. Denies any recent hearing evaluations. 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 Spina bifida occulta 06/26/2011 TIA (transient ischemic attack) Vitamin D deficiency 12/21/2013 Past Surgical History: Procedure Laterality Date CARPAL TUNNEL RELEASE Right 11/2011 SECTION CHOLECYSTECTOMY 04/2017 CYST REMOVAL 09/2016 back HYSTERECTOMY Family History Problem Relation Age of Onset Heart disease Mother Hypertension Mother Heart attack Mother Stroke Mother Hypertension Father Heart disease Father Diabetes Father Stroke Father Parkinson's Brother Alcohol abuse Brother Colon cancer Maternal Grandmother COPD Paternal Grandmother COPD Paternal Grandfather Social History Socioeconomic History Marital status: Spouse name: Not on file Number of children: Not on file Years of education: Not on file Highest education level: Not on file Occupational History Not on file Social Needs Financial resource strain: Not on file Food insecurity Worry: Never true Inability: Never true Transportation needs Medical: Not on file Non-medical: Not on file Tobacco Use Smoking status: Never Smoker Smokeless tobacco: Never Used Substance and Sexual Activity Alcohol use: Yes Comment: SOCIALLY Drug use: No Sexual activity: Yes Partners: Male Lifestyle Physical activity Days per week: Not on file Minutes per session: Not on file Stress: Not on file Relationships Social connections Talks on phone: Not on file Gets together: Once a week Attends adventism service: Not on file Active member of club or organization: Not on file Attends meetings of clubs or organizations: Not on file Relationship status: Not on file Other Topics Concern Not on file Social History Narrative Not on file Allergy Information: I have reviewed the patient's allergies. Bee venom protein (honey bee); Asa [aspirin]; Caffeine; Ct: iodinated contrast- oral and iv dye; Morphine; Oxycodone-acetaminophen; Penicillins; Red dye; Sulfamethoxazole; and Trimethoprim Home Medications: Outpatient Medications as of 09/30/2019 Order #: [id number]: Historical Med Order #: [id number]: Normal Order #: [id number]: Normal Order #: [id number]: Normal Order #: [id number]: Normal Order #: [id number]: Normal Order #: [id number]: Historical Med Order #: [id number]: Historical Med Order #: [id number]: Historical Med ROS: Review of Systems Constitution: Negative for chills, fever and malaise/fatigue. HENT: Positive for ear pain (constant dull ache) and hearing loss (decreased hearing bilaterally). Negative for congestion, ear discharge (initally had green foul drainage from the ears that resolvedwith antibiotic ear drops ), nosebleeds, sore throat and tinnitus. Eyes: Negative for discharge, pain, photophobia and redness. Cardiovascular: Negative for chest pain, leg swelling, near-syncope and syncope. Respiratory: Negative for cough, shortness of breath, sleep disturbances due to breathing and snoring. Endocrine: Negative for cold intolerance and heat intolerance. Hypothyroidism Hematologic/Lymphatic: Negative for adenopathy and bleeding problem. Does not bruise/bleed easily. Skin: Negative for color change, dry skin, itching and rash. Musculoskeletal: Positive for arthritis, back pain, joint pain (hips) and stiffness. Negative for falls, joint swelling, muscle cramps and muscle weakness. Gastrointestinal: Negative for nausea and vomiting. Neurological: Positive for headaches. Negative for dizziness, light-headedness, loss of balance, numbness, seizures, tremors, vertigo and weakness. Hx of TIA, hx of spina bifida Psychiatric/Behavioral: Negative for altered mental status and substance abuse. The patient is not nervous/anxious. Allergic/Immunologic: Positive for persistent infections (recurrent ear infections since the begining of the year ). Negative for environmental allergies. Physical Examination: Vital Signs: BP 123/84 Pulse 75 Resp 18 Ht 4' 7 Wt 60.7 kg (133 lb 14.4 oz) SpO2 97% BMI 31.12 kg/m Physical Exam Constitutional: She is oriented to person, place, and time and well-developed, well-nourished, and in no distress. Vital signs are normal. She appears healthy. She does not have a sickly appearance. No distress. HENT: Head: Normocephalic and atraumatic. Right Ear: Ear canal normal. There is tenderness. No drainage or swelling. No foreign bodies. No mastoid tenderness. Tympanic membrane mobility is abnormal (mild delay ). No middle ear effusion (mildamount of fluid noted ). Decreased hearing is noted. Left Ear: Ear canal normal. There is tenderness. No drainage or swelling. No foreign bodies. No mastoid tenderness. Tympanic membrane mobility is abnormal ( mild delay ). No middle ear effusion ( mild amount of fluid noted ). Decreased hearing is noted. Nose: Nose normal. No mucosal edema, rhinorrhea, nose lacerations, sinus tenderness, nasal deformity or septal deviation. Right sinus exhibits no maxillary sinus tenderness and no frontal sinus tenderness. Left sinus exhibits no maxillary sinus tenderness and no frontal sinus tenderness. Mouth/Throat: Uvula is midline, oropharynx is clear and moist and mucous membranes are normal. No oropharyngeal exudate. Eyes: Right eye exhibits no discharge. Left eye exhibits no discharge. Neck: Trachea normal. Neck supple. No tracheal deviation present. No thyroid mass and no thyromegaly present. Lymphadenopathy: Head (right side): No submental and no submandibular adenopathy present. Head (left side): No submental and no submandibular adenopathy present. She has no cervical adenopathy. Neurological: She is alert and oriented to person, place, and time. Gait normal. Skin: Skin is warm and dry. She is not diaphoretic. Psychiatric: Affect normal. Procedure: Bilateral micro otoscopy was used to rule out any middle ear translucent pathology. There is tenderness noted to bilateral external ear canals & scant cerumen. There is a mild amount of clear fluid noted behind bilateral tympanic membranes & delayed movement with auto insufflation. There isno active otorrhea. Findings are consistent with resolved otitis externa & ETD. Assessment and Plan: Lima Jordan is a 48 y.o. y/o female presenting with bilateral ear pain. Micro otoscopy was used to rule out any middle ear translucent pathology. There is tenderness notedto bilateral external ear canals & scant cerumen. There is a mild amount of clear fluid noted behind bilateral tympanic membranes & delayed movement with auto insufflation. There is no activeotorrhea. Findings are consistent with resolved otitis externa & ETD. Patient will be started on Dominga & Flonase daily & given a prescription of Ofloxacin to have on hand for history ofrecurrent ear infections due to swimming. She shows signs of bilateral hearing loss. Follow up in 4 weeks for evaluation of symptom improvement with a formal hearing evaluation. She may follow up sooner for any related or non related problems or concerns. Patient verbalized understanding & is in agreement with the plan of care. 1. ETD (Eustachian tube dysfunction), bilateral - fluticasone propionate (FLONASE) 50 mcg/actuation nasal spray; Instill 1 (one) spray into each nostril 2 (two) times a day . Dispense: 16 g; Refill: 5 2. Chronic pain of both ears - Ambulatory referral to ENT - fexofenadine (DOMINGA) 180 MG tablet; Take 1 (one) tablet (180 mg total) by mouth daily . Dispense: 30 tablet; Refill: 3 3. History of recurrent ear infection - ofloxacin (FLOXIN) 0.3 % otic solution; Administer 5 (five) drops into both ears 2 (two) times a day for 10 days . Dispense: 5 mL; Refill: 1 Diagnoses and all orders for this visit: ETD (Eustachian tube dysfunction), bilateral - fluticasone propionate (FLONASE) 50 mcg/actuation nasal spray; Instill 1 (one) spray into each nostril 2 (two) times a day . Chronic pain of both ears Comments: Dr. Banks's office will call you to schedule an appointment for evaluation of your chronic reoccurring otitis media. Orders: - Ambulatory referral to ENT - fexofenadine (DOMINGA) 180 MG tablet; Take 1 (one) tablet (180 mg total) by mouth daily . History of recurrent ear infection - ofloxacin (FLOXIN) 0.3 % otic solution; Administer 5 (five) drops into both ears 2 (two) times a day for 10 days . Tierney Saleem CNP documented in this encounter* Negro Landrum MD - 01/12/2020 9:38 AM EST Lima Jordan 49 y.o. 1970 female Reason for Consult: #1 rectal bleeding #2 family history of colon cancer HPI: 49-year-old female with history of hypertension hyperlipidemia anemia and strong family history of colon cancer was referred to me for colonoscopy patient says she has some time blood in the stool and has anemia. Her father and grandmother had colon cancer. She denies any change in bowel habit or weight loss. Past Medical History: Past Medical History: Diagnosis Date Anemia Arthritis hips Endometriosis 1996 Family history of colon cancer Hypertension Hypothyroid Low back pain 06/26/2011 Migraine 06/26/2011 Migraines Mixed hyperlipidemia 06/26/2011 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 Spina bifida occulta 06/26/2011 TIA (transient ischemic attack) Vitamin D deficiency 12/21/2013 Surgical History & Procedures: Past Surgical History: Procedure Laterality Date CARPAL TUNNEL RELEASE Right 11/2011 SECTION CHOLECYSTECTOMY 04/2017 COLONOSCOPY 2017 CYST REMOVAL 09/2016 back HYSTERECTOMY Social History: Social History Socioeconomic History Marital status: Spouse name: Not on file Number of children: Not on file Years of education: Not on file Highest education level: Not on file Occupational History Not on file Social Needs Financial resource strain: Not on file Food insecurity Worry: Never true Inability: Never true Transportation needs Medical: Not on file Non-medical: Not on file Tobacco Use Smoking status: Never Smoker Smokeless tobacco: Never Used Substance and Sexual Activity Alcohol use: Yes Comment: SOCIALLY Drug use: No Sexual activity: Yes Partners: Male Lifestyle Physical activity Days per week: Not on file Minutes per session: Not on file Stress: Not on file Relationships Social connections Talks on phone: Not on file Gets together: Once a week Attends adventism service: Not on file Active member of club or organization: Not on file Attends meetings of clubs or organizations: Not on file Relationship status: Not on file Other Topics Concern Not on file Social History Narrative Not on file Current Medications: Current Outpatient Medications Medication Sig Dispense Refill amitriptyline (ELAVIL) 25 MG tablet Take 25 mg by mouth nightly. amLODIPine (NORVASC) 10 MG tablet Take 1 (one) tablet (10 mg total) by mouth daily . 90 tablet 1 cholecalciferol, vitamin D3, (VITAMIN D3) 5,000 unit Tab tablet Take 1 (one) tablet (5,000 Units total) by mouth daily . 30 tablet 11 estradioL (ESTRACE) 2 MG tablet Take 1 (one) tablet (2 mg total) by mouth daily . 90 tablet 1 fluticasone propionate (FLONASE) 50 mcg/actuation nasal spray Instill 1 (one) spray into each nostril 2 (two) times a day . 16 g 5 levothyroxine (SYNTHROID, LEVOTHROID) 88 MCG tablet Take 1 (one) tablet (88 mcg total) by mouth once daily . 90 tablet 0 lisinopriL (PRINIVIL,ZESTRIL) 40 MG tablet take 1 tablet by mouth once daily 90 tablet 1 meclizine (ANTIVERT) 25 mg tablet take 1 tablet by mouth three times a day if needed for dizziness bisacodyL (DULCOLAX) 5 mg EC tablet As instructed . 4 tablet 0 fexofenadine (DOMINGA) 180 MG tablet Take 1 (one) tablet (180 mg total) by mouth daily . (Patient not taking: Reported on 01/12/2020 .) 30 tablet 3 polyethylene glycol (GoLYTELY) 236-22.74-6.74 -5.86 gram solution Take 4,000 mL by mouth once for 1dose . 4000 mL 0 predniSONE (DELTASONE) 10 MG tablet 4 tablets daily x 3 days, 3 tablets daily x 3 days, 2 tablets daily x 3 days, 1 tablet daily x 3 days . (Patient not taking: Reported on 01/12/2020 .) 30 tablet 0 propranolol (INDERAL LA) 60 MG 24 hr capsule 0 tiZANidine (ZANAFLEX) 4 MG tablet Take 8 mg by mouth nightly . zinc gluconate 100 mg Tab Take by mouth daily . No current facility-administered medications for this visit. Review of Systems Constitutional: Negative for appetite change and unexpected weight change. HENT: Negative for voice change. Respiratory: Negative for cough, choking and shortness of breath. Cardiovascular: Negative for chest pain and leg swelling. Gastrointestinal: Positive for blood in stool. Negative for abdominal pain, anal bleeding, constipation, diarrhea, nausea, rectal pain and vomiting. Genitourinary: Negative for hematuria. Musculoskeletal: Negative for arthralgias and joint swelling. Skin: Negative for pallor. Neurological: Negative for dizziness, tremors and weakness. Hematological: Negative for adenopathy. Does not bruise/bleed easily. Psychiatric/Behavioral: Negative for confusion. Physical Exam Constitutional: Appearance: Normal appearance. Eyes: Pupils: Pupils are equal, round, and reactive to light. Cardiovascular: Pulses: Normal pulses. Heart sounds: Normal heart sounds. Pulmonary: Breath sounds: Normal breath sounds. Abdominal: General: Bowel sounds are normal. Palpations: Abdomen is soft. There is no mass. Tenderness: There is no abdominal tenderness. Skin: Coloration: Skin is not jaundiced. Neurological: General: No focal deficit present. Mental Status: She is alert and oriented to person, place, and time. Psychiatric: Behavior: Behavior normal. Lab Draw on 12/16/2019 Component Date Value Ref Range Status Sodium 12/16/2019 137 135 - 145 mmol/L Final Potassium 12/16/2019 4.0 3.5 - 5.1 mmol/L Final Chloride 12/16/2019 109* 98 - 108 mmol/L Final Bicarbonate 12/16/2019 23 21 - 32 mmol/L Final Anion Gap 12/16/2019 9* 10 - 20 mmol/L Final Glucose 12/16/2019 94 65 - 99 mg/dL Final BUN 12/16/2019 16 8 - 25 mg/dL Final Creatinine 12/16/2019 0.70 0.40 - 1.10 mg/dL Final eGFR 12/16/2019 104 >=60 mL/min/1.73 m2 Final BUN/Creatinine Ratio 12/16/2019 22.9* 10.0 - 20.0 Final Total Protein 12/16/2019 7.0 6.0 - 8.0 g/dL Final Albumin 12/16/2019 3.1* 3.2 - 5.2 g/dL Final Calcium 12/16/2019 8.4 8.4 - 10.2 mg/dL Final Alkaline Phosphatase 12/16/2019 92 40 - 150 U/L Final AST 12/16/2019 22 0 - 45 U/L Final Total Bilirubin 12/16/2019 0.2 0.0 - 1.3 mg/dL Final ALT 12/16/2019 24 14 - 65 U/L Final Cholesterol 12/16/2019 171 100 - 199 mg/dL Final National Cholesterol Education Program Guidelines: Cholesterol Desirable: <200 mg/dL Borderline High: 200-239 mg/dL High: greater than or equal to 240 mg/dL Triglycerides 12/16/2019 176* 30 - 150 mg/dL Final National Cholesterol Education Program Guidelines: Triglyceride Normal: <150 mg/dL Borderline High: 150-199 mg/dL High: 200-499 mg/dL Very High: greater than or equal to 500 mg/dL HDL 12/16/2019 63 40 - 59 mg/dL Final National Cholesterol Education Program Guidelines: HDL Cholesterol Low: <40 mg/dL Near Optimal: 40-59 mg/dL High: greater than or equal to 60 mg/dL Chol/HDL Ratio 12/16/2019 2.7 ratio Final Female Cholesterol/HDL Ratio: Average risk: 4.4 1/2 average risk: 3.3 2 x average risk: 7.1 LDL Calculated 12/16/2019 73 10 - 130 mg/dL Final National Cholesterol Education Program Guidelines: LDL Cholesterol Optimal: <100 mg/dL Near Optimal/above Optimal: 100-129 mg/dL Borderline High: 130-159 mg/dL High: 160-189 mg/dL Very High: greater than or equal to 190 mg/dL Non HDL Cholesterol 12/16/2019 108 mg/dL Final National Cholesterol Education Program Guidelines: NON HDL Cholesterol Desirable: <130 mg/dL Borderline High: 130-159 mg/dL High: 160-189 mg/dL Very High: > or = 190 mg/dL TSH 12/16/2019 0.17* 0.27 - 4.20 mcIU/mL Final WBC 12/16/2019 6.76 4.50 - 11.00 K/mcL Final RBC 12/16/2019 4.28 4.00 - 5.20 M/mcL Final Hemoglobin 12/16/2019 11.9* 12.0 - 16.0 g/dL Final Hematocrit 12/16/2019 37.5 36.0 - 46.0 % Final MCV 12/16/2019 87.6 80.0 - 100.0 fL Final MCH 12/16/2019 27.8 26.0 - 34.0 pg Final MCHC 12/16/2019 31.7 31.0 - 37.0 g/dL Final Platelets 12/16/2019 393 150 - 400 K/mcL Final RDW - CV 12/16/2019 13.7 11.6 - 14.8 % Final MPV 12/16/2019 9.3* 9.4 - 12.4 fL Final Neutrophils 12/16/2019 57.3 % Final Lymphocytes 12/16/2019 31.7 % Final Monocytes 12/16/2019 7.5 % Final Eosinophils 12/16/2019 2.4 % Final Basophils 12/16/2019 0.7 % Final IG Percent 12/16/2019 0.40 % Final The IG parameter is the percentage of metamyelocytes, myelocytes and promyelocytes. An immature granulocyte count (IG) of 1% or more suggests the possibility of infection, an IG count of 3% is very likely related to an infection. Neutrophils Abs 12/16/2019 3.87 1.70 - 7.00 K/mcL Final Lymphocytes Abs 12/16/2019 2.14 0.90 - 4.00 K/mcL Final Monocytes Abs 12/16/2019 0.51 0.30 - 0.90 K/mcL Final Eosinophils Abs 12/16/2019 0.16 0.00 - 0.50 K/mcL Final Basophils Abs 12/16/2019 0.05 0.00 - 0.30 K/mcL Final IG Absolute 12/16/2019 0.03 0.00 - 0.30 K/mcL Final Nucleated RBC 12/16/2019 0.0 % Final Nucleated RBC Abs 12/16/2019 0.00 0.00 - 0.00 K/mcL Final T4, Free 12/16/2019 1.1 0.7 - 1.7 ng/dL Final Assessment & Plan: Rectal bleeding with strong family history of colon cancer will need colonoscopy to evaluate which is scheduled for February 06 at 8:30 AM at surgery center. Negro Landrum MD documented in this encounter* Sabina Sanchez MD - 01/24/2020 9:15 AM EST Subjective: Lima Jordan is an 49 y.o. female who presents for evaluation of upcoming Bilateral breast reduction scheduled for 02/20/2020. Allergies Allergen Reactions Aspirin Hives Contrast Dye [Ivp Dye, Iodine Containing] Hives Morphine Feels like body being set on fire Penicillins Pt states unknown reaction Percocet [Oxycodone-Acetaminophen] Stated I can't function Current Outpatient Medications Medication Sig Dispense Refill amitriptyline 25 MG Tab take 25 mg by mouth At bedtime.. estradiol 2 MG Tab take 2 mg by mouth daily.. levothyroxine 88 MCG Tab take 88 mcg by mouth daily.. lisinopril 20 MG Tab take 20 mg by mouth daily.. RA VITAMIN D-3 5000 units Cap capsule Take 5,000 Units by mouth daily. 1 cephALEXin 500 MG Cap take 1 capsule by mouth every 6 hours.. (Patient not taking: Reported on 01/24/2020) 40 capsule 0 hydrOXYzine HCl 25 MG Tab tablet Take 1 tablet by mouth every 6 hours as needed for Itching. (Patient not taking: Reported on 01/24/2020) 30 tablet 0 hyoscyamine 0.125 MG Tab SL take 1 tablet by mouth every 4 hours as needed for Cramping (GI spasm).. (Patient not taking: Reported on 01/24/2020) 15 tablet 0 ondansetron 4 MG Tab Dispersible tablet Take 1 tablet by mouth every 4 hours as needed for Nausea. Place on tongue (Patient not taking: Reported on 01/24/2020) 30 tablet 0 predniSONE 20 MG Tab tablet 3 tabs daily x 3days; 2 tabs daily x 3days; 1 tab daily x 3days then 1/2 tablet daily x 3days (Patient not taking: Reported on 01/24/2020) 20 tablet 0 sulfamethoxazole-trimethoprim 800-160 MG Tab take 1 tablet by mouth 2 times daily.. (Patient not taking: Reported on 01/24/2020) 20 tablet 0 No current facility-administered medications for this visit. Past Medical History: Diagnosis Date Essential hypertension, benign Hypothyroidism Kidney stone Migraine Stroke Past Surgical History: Procedure Laterality Date CHOLECYSTECTOMY LAPAROSCOPIC N/A 05/01/2017 Laterality: N/A; Surgeon: Norman Granados MD; Location: [facility] OR APPENDECTOMY 2007 HYSTERECTOMY Bilateral 1995 TUBAL LIGATION 1995 SECTION 1992,1994 History reviewed. No pertinent family history. Social History Socioeconomic History Marital status: Spouse name: Not on file Number of children: Not on file Years of education: Not on file Highest education level: Not on file Occupational History Not on file Social Needs Financial resource strain: Not on file Food insecurity Worry: Not on file Inability: Not on file Transportation needs Medical: Not on file Non-medical: Not on file Tobacco Use Smoking status: Never Smoker Smokeless tobacco: Never Used Substance and Sexual Activity Alcohol use: Yes Frequency: Monthly or less Drug use: No Sexual activity: Not on file Lifestyle Physical activity Days per week: Not on file Minutes per session: Not on file Stress: Not on file Relationships Social connections Talks on phone: Not on file Gets together: Not on file Attends adventism service: Not on file Active member of club or organization: Not on file Attends meetings of clubs or organizations: Not on file Relationship status: Not on file Intimate partner violence Fear of current or ex partner: Not on file Emotionally abused: Not on file Physically abused: Not on file Forced sexual activity: Not on file Other Topics Concern Not on file Social History Narrative Not on file Review of Systems Pertinent items are noted in HPI. General Plastics Review of Systems: Do you have any of the following: Chills, Fatigue, Fever or Night Sweats: no. Ear pain or eye discharge: no. Hearing loss or visual changes: no. Sore throat or chronic cough: no. Shortness of breath: no. Chest pain, swelling, or heart palpitations: no. Abdominal pain: no. Constipation or diarrhea: no. Heartburn or Nausea: no. Rash or skin problems: no. Dizziness or numbness: no. Headaches or Migraines: no. Seizures: no. Joint pain, joint swelling or muscle weakness: no. Bruise or bleed easily: no. Any swollen lymph nodes: no. Objective: BP 127/84 (BP Location: Right arm, BP Position: Sitting) Pulse 83 Temp 97.8 F (36.6 C) (Temporal) Ht 1.397 m (4' 7) Wt 60.2 kg (132 lb 12.8 oz) BMI 30.87 kg/m Smoking Status Never Smoker Patient with breast hypertrophy and asymmetry. [facility] we will need to obtain the results ofthis. She is scheduled for her preoperative clearance with her PCP in a few weeks. Assessment: Patient for breast reduction in February Plan: The procedure of breast reduction was thoroughly reviewed with the patient. The patient's goals and expectation for the surgery were reviewed, as well as the reasonable expected outcome. The expected pre-, intra-, and post- operative course was reviewed. The pt was given copies of Pre- and Post-Operative Instructions to review as well as a Consent specific to their procedure if available. The need for medical clearance was also reviewed with them. I spent 20 minutes face to face with the patient. Greater than 50% of this time was spent counseling the patient regarding the proposed procedure or instruction. * Helen Hugo - 01/24/2020 9:15 AM EST General Plastics Review of Systems: Do you have any of the following: Chills, Fatigue, Fever or Night Sweats: no. Ear pain or eye discharge: no. Hearing loss or visual changes: no. Sore throat or chronic cough: no. Shortness of breath: no. Chest pain, swelling, or heart palpitations: no. Abdominal pain: no. Constipation or diarrhea: no. Heartburn or Nausea: no. Rash or skin problems: no. Dizziness or numbness: no. Headaches or Migraines: no. Seizures: no. Joint pain, joint swelling or muscle weakness: no. Bruise or bleed easily: no. Any swollen lymph nodes: no. documented in this encounter* Alise Sprague CNP - 01/30/2020 1:00 PM EST HISTORY Patient Name: Lima Jordan Date of Exam: 01/30/2020 Date of Surgery: 02/20/2020 Diagnosis: Macromasia Surgeon: Dr. Sanchez History of current illness: Patient Active Problem List Diagnosis Hypertension Stroke (HCC) Postartificial menopausal syndrome Hypothyroidism Vitamin D deficiency Spina bifida occulta Migraine Mixed hyperlipidemia Insomnia Osteopenia Chronic right hip pain Macromastia Rectal bleeding Family history of colon cancer Past Medical History: Diagnosis Date Anemia Arthritis hips Endometriosis 1996 Family history of colon cancer Hypertension Hypothyroid Low back pain 06/26/2011 Migraine 06/26/2011 Migraines Mixed hyperlipidemia 06/26/2011 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 Spina bifida occulta 06/26/2011 TIA (transient ischemic attack) Vitamin D deficiency 12/21/2013 Anesthesia History: None Transfusion History N/A Bleeding Complications: Denies Past Surgical History: Procedure Laterality Date CARPAL TUNNEL RELEASE Right 11/2011 SECTION CHOLECYSTECTOMY 04/2017 COLONOSCOPY 2017 CYST REMOVAL 09/2016 back HYSTERECTOMY Most Recent Immunizations Administered Date(s) Administered Influenza, Unspecified 11/10/2018 Tdap 12/15/2011 Allergies Allergen Reactions Bee Venom Protein (Honey Bee) Hives Asa [Aspirin] GI Intolerance Caffeine Other (See Comments) anxiety Ct: Iodinated Contrast- Oral And Iv Dye Hives Morphine Hives Oxycodone-Acetaminophen Stated I can't function Penicillins Hives Red Dye Sulfamethoxazole GI Intolerance GI problems Bactrim Trimethoprim GI Intolerance GI problems Bactrim Review of Systems Constitutional: Negative. Negative for activity change. Respiratory: Negative. Negative for chest tightness and shortness of breath. Cardiovascular: Negative for chest pain and palpitations. Gastrointestinal: Negative. Negative for abdominal pain. Genitourinary: Negative. Musculoskeletal: Negative. Skin: Negative. Negative for pallor. Neurological: Negative for weakness. Psychiatric/Behavioral: Negative. Social History Social History Tobacco Use Smoking status: Never Smoker Smokeless tobacco: Never Used Substance Use Topics Alcohol use: Yes Comment: SOCIALLY Social History Substance and Sexual Activity Drug Use No Marital Status: Family History Problem Relation Age of Onset Heart disease Mother Hypertension Mother Heart attack Mother Stroke Mother Hypertension Father Heart disease Father Diabetes Father Stroke Father Parkinson's Brother Alcohol abuse Brother Colon cancer Maternal Grandmother COPD Paternal Grandmother COPD Paternal Grandfather Current Outpatient Medications Medication Sig Dispense Refill amitriptyline (ELAVIL) 25 MG tablet Take 25 mg by mouth nightly. amLODIPine (NORVASC) 10 MG tablet Take 1 (one) tablet (10 mg total) by mouth daily . 90 tablet 1 bisacodyL (DULCOLAX) 5 mg EC tablet As instructed . 4 tablet 0 cholecalciferol, vitamin D3, (VITAMIN D3) 5,000 unit Tab tablet Take 1 (one) tablet (5,000 Units total) by mouth daily . 30 tablet 11 estradioL (ESTRACE) 2 MG tablet Take 1 (one) tablet (2 mg total) by mouth daily . 90 tablet 1 fexofenadine (DOMINGA) 180 MG tablet Take 1 (one) tablet (180 mg total) by mouth daily . (Patient not taking: Reported on 01/12/2020 .) 30 tablet 3 fluticasone propionate (FLONASE) 50 mcg/actuation nasal spray Instill 1 (one) spray into each nostril 2 (two) times a day . 16 g 5 levothyroxine (SYNTHROID, LEVOTHROID) 88 MCG tablet Take 1 (one) tablet (88 mcg total) by mouth once daily . 90 tablet 0 lisinopriL (PRINIVIL,ZESTRIL) 40 MG tablet take 1 tablet by mouth once daily 90 tablet 1 meclizine (ANTIVERT) 25 mg tablet take 1 tablet by mouth three times a day if needed for dizziness predniSONE (DELTASONE) 10 MG tablet 4 tablets daily x 3 days, 3 tablets daily x 3 days, 2 tablets daily x 3 days, 1 tablet daily x 3 days . (Patient not taking: Reported on 01/12/2020 .) 30 tablet 0 propranolol (INDERAL LA) 60 MG 24 hr capsule 0 tiZANidine (ZANAFLEX) 4 MG tablet Take 8 mg by mouth nightly . zinc gluconate 100 mg Tab Take by mouth daily . No current facility-administered medications for this visit. PHYSICAL Patient Name: Lima Jordan Age: 49 y.o. Physical Exam Vitals signs and nursing note reviewed. Constitutional: Appearance: Normal appearance. She is well-developed. HENT: Head: Normocephalic and atraumatic. Neck: Musculoskeletal: Normal range of motion. Cardiovascular: Rate and Rhythm: Normal rate and regular rhythm. Pulmonary: Effort: Pulmonary effort is normal. Breath sounds: Normal breath sounds. Abdominal: General: Bowel sounds are normal. Palpations: Abdomen is soft. Musculoskeletal: Normal range of motion. Skin: General: Skin is warm and dry. Neurological: Mental Status: She is alert and oriented to person, place, and time. Psychiatric: Mood and Affect: Mood normal. Behavior: Behavior normal. Thought Content: Thought content normal. Judgment: Judgment normal. EKG completed at [facility] on 01/24/2020, unable to visualize No results found for this visit on 01/30/20. IMPRESSION/PLAN: This patient is an acceptable surgical candidate for the contemplated procedure. Patient denies acute chest pain or dyspnea; without history of DM2, CAD, CHF, CKD; According to the ACC/AHA 2014 guidelines, she is of low risk for this low risk procedure. Thereforeit is acceptable to proceed with the surgical procedure. She has excellent functional capacity witha METS > 4. Her RCI risk is 0.4%. Thank you for the opportunity to evaluate your patient. Please feel free to contact our office withany questions. documented in this encounter* Sabina Sanchez MD - 02/07/2020 9:30 AM EST Subjective: Lima Jordan is an 49 y.o. female who presents for evaluation of the upcoming breast reductionsurgery. She has seen her PCP and has obtained medical clearance for the procedure scheduled in approximately 2 weeks.. Allergies Allergen Reactions Bee Venom Hives Aspirin Hives Caffeine Other reaction(s): Other (See Comments) anxiety Contrast Dye [Ivp Dye, Iodine Containing] Hives Morphine Feels like body being set on fire Penicillins Pt states was childhood reaction. Dad told her she got hives. Percocet [Oxycodone-Acetaminophen] Itching Stated I can't function Red Dye Sulfamethoxazole Other reaction(s): GI Intolerance GI problems Bactrim Current Outpatient Medications Medication Sig Dispense Refill amitriptyline 25 MG Tab take 25 mg by mouth At bedtime.. amLODIPine 10 MG tablet Take 10 mg by mouth daily. estradiol 2 MG Tab take 2 mg by mouth daily.. fexofenadine 180 MG tablet Take 180 mg by mouth as needed. fluticasone 50 MCG/ACT Suspension nasal spray as needed. hydrOXYzine HCl 25 MG Tab tablet Take 1 tablet by mouth every 6 hours as needed for Itching. 30 tablet 0 hyoscyamine 0.125 MG Tab SL take 1 tablet by mouth every 4 hours as needed for Cramping (GI spasm).. 15 tablet 0 levothyroxine 88 MCG Tab take 88 mcg by mouth daily.. lisinopril 20 MG Tab take 20 mg by mouth daily.. ondansetron 4 MG Tab Dispersible tablet Take 1 tablet by mouth every 4 hours as needed for Nausea. Place on tongue 30 tablet 0 predniSONE 20 MG Tab tablet 3 tabs daily x 3days; 2 tabs daily x 3days; 1 tab daily x 3days then 1/2 tablet daily x 3days 20 tablet 0 RA VITAMIN D-3 5000 units Cap capsule Take 5,000 Units by mouth daily. 1 sulfamethoxazole-trimethoprim 800-160 MG Tab take 1 tablet by mouth 2 times daily.. 20 tablet 0 tiZANidine 4 MG tablet Take 8 mg by mouth as needed. cephALEXin 500 MG capsule Take 1 capsule by mouth 2 times daily for 7 days. 14 capsule 0 HYDROcodone-Acetaminophen (Vicodin) 5-300 MG tablet Take 5 mg of opiate by mouth every 4 hours as needed for Moderate Pain for up to 3 days. 10 tablet 0 No current facility-administered medications for this visit. Past Medical History: Diagnosis Date Essential hypertension, benign Hypothyroidism Kidney stone Migraine Stroke at age 44, no residual symptoms Past Surgical History: Procedure Laterality Date CHOLECYSTECTOMY LAPAROSCOPIC N/A 05/01/2017 Laterality: N/A; Surgeon: Norman Granados MD; Location: [facility] OR APPENDECTOMY 2007 HYSTERECTOMY Bilateral 1995 TUBAL LIGATION 1995 SECTION History reviewed. No pertinent family history. Social History Socioeconomic History Marital status: Spouse name: Not on file Number of children: Not on file Years of education: Not on file Highest education level: Not on file Occupational History Not on file Social Needs Financial resource strain: Not on file Food insecurity Worry: Not on file Inability: Not on file Transportation needs Medical: Not on file Non-medical: Not on file Tobacco Use Smoking status: Never Smoker Smokeless tobacco: Never Used Substance and Sexual Activity Alcohol use: Yes Frequency: Monthly or less Drug use: No Sexual activity: Not on file Lifestyle Physical activity Days per week: Not on file Minutes per session: Not on file Stress: Not on file Relationships Social connections Talks on phone: Not on file Gets together: Not on file Attends adventism service: Not on file Active member of club or organization: Not on file Attends meetings of clubs or organizations: Not on file Relationship status: Not on file Intimate partner violence Fear of current or ex partner: Not on file Emotionally abused: Not on file Physically abused: Not on file Forced sexual activity: Not on file Other Topics Concern Not on file Social History Narrative Not on file Review of Systems Pertinent items are noted in HPI. General Plastics Review of Systems: Do you have any of the following: Chills, Fatigue, Fever or Night Sweats: no. Ear pain or eye discharge: no. Hearing loss or visual changes: no. Sore throat or chronic cough: no. Shortness of breath: no. Chest pain, swelling, or heart palpitations: no. Abdominal pain: no. Constipation or diarrhea: no. Heartburn or Nausea: no. Rash or skin problems: no. Dizziness or numbness: no. Headaches or Migraines: no. Seizures: no. Joint pain, joint swelling or muscle weakness: no. Bruise or bleed easily: no. Any swollen lymph nodes: no. Objective: BP (!) 144/94 (BP Location: Right arm, BP Position: Sitting) Pulse 80 Temp 97.8 F (36.6 C) (Temporal) Ht 1.397 m (4' 7) Wt 61.2 kg (135 lb) BMI 31.38 kg/m Smoking Status Never Smoker Pt with bilateral macromastia and asymmetry. Review of the previous mammogram is within normal limits. Review of bloodwork is WNL with the exception of a slightly low potassium Assessment: Issue for bilateral breast reduction Plan: The procedure of Breast reduction Was thoroughly reviewed with the patient. The reasonable expected outcome was reviewed. The expected Pre-, Intra-, and Post- Operative Course was reviewed. The Pre- and Post-Operative Instructions were reviewed in addition to the medications to avoid before surgery. The patient was given the following scripts (which were also reviewed): Keflex and Vicodin Measurements and Sizing were performed as applicable. The Potential Risks and Complications were reviewed as was the Consent for Surgery. The RISKS, BENEFITS, POTENTIAL COMPLICATIONS, and ALTERNATIVES OF TREATMENT were reviewed. The POTENTIAL COMPLICATIONS were reviewed which include (but are not exclusive of) bleeding, infection, pain, numbness, assymmetry, scar tissue, skin necrosis, the need for further surgery, DVT, and even . She is also aware of the possibility of permanent nipple numbness No guarantees as to the size were made. The tissue will be sent to pathology for evaluation. The patient was given ample opportunity to ask questions. The patient voices understanding. The patient is encouraged to call with any further questions or problems encountered before or after the proposed procedure. Helen Lemos - 02/07/2020 9:30 AM EST General Plastics Review of Systems: Do you have any of the following: Chills, Fatigue, Fever or Night Sweats: no. Ear pain or eye discharge: no. Hearing loss or visual changes: no. Sore throat or chronic cough: no. Shortness of breath: no. Chest pain, swelling, or heart palpitations: no. Abdominal pain: no. Constipation or diarrhea: no. Heartburn or Nausea: no. Rash or skin problems: no. Dizziness or numbness: no. Headaches or Migraines: no. Seizures: no. Joint pain, joint swelling or muscle weakness: no. Bruise or bleed easily: no. Any swollen lymph nodes: no. documented in this encounter* Sabina Sanchez MD - 02/28/2020 9:30 AM EST Subjective: Lima Jordan is an 49 y.o. female who presents for evaluation of her bilateral breast reduction. She states she had put ice on her breast, had removed all her dressings, and showered despite the instructions given to her.. Allergies Allergen Reactions Bee Venom Hives Aspirin Hives Caffeine Other reaction(s): Other (See Comments) anxiety Contrast Dye [Ivp Dye, Iodine Containing] Hives Morphine Feels like body being set on fire Penicillins Pt states was childhood reaction. Dad told her she got hives. Percocet [Oxycodone-Acetaminophen] Itching Stated I can't function Red Dye Sulfamethoxazole Other reaction(s): GI Intolerance GI problems Bactrim Current Outpatient Medications Medication Sig Dispense Refill amitriptyline 25 MG Tab take 25 mg by mouth At bedtime.. amLODIPine 10 MG tablet Take 10 mg by mouth daily. estradiol 2 MG Tab take 2 mg by mouth daily.. hydrOXYzine HCl 25 MG Tab tablet Take 1 tablet by mouth every 6 hours as needed for Itching. 30 tablet 0 hyoscyamine 0.125 MG Tab SL take 1 tablet by mouth every 4 hours as needed for Cramping (GI spasm).. 15 tablet 0 levothyroxine 88 MCG Tab take 88 mcg by mouth daily.. lisinopril 20 MG Tab take 20 mg by mouth daily.. ondansetron 4 MG Tab Dispersible tablet Take 1 tablet by mouth every 4 hours as needed for Nausea. Place on tongue 30 tablet 0 RA VITAMIN D-3 5000 units Cap capsule Take 5,000 Units by mouth daily. 1 sulfamethoxazole-trimethoprim 800-160 MG Tab take 1 tablet by mouth 2 times daily.. 20 tablet 0 HYDROcodone-Acetaminophen (Vicodin) 5-300 MG tablet Take 5 mg of opiate by mouth every 4 hours as needed for Moderate Pain for up to 3 days. 10 tablet 0 No current facility-administered medications for this visit. Past Medical History: Diagnosis Date Essential hypertension, benign Hypothyroidism Kidney stone Migraine Stroke at age 44, no residual symptoms Past Surgical History: Procedure Laterality Date REDUCTION MAMMOPLASTY Bilateral 02/20/2020 Laterality: Bilateral; Surgeon: Sabina Sanchez MD; Location: [facility] OR CHOLECYSTECTOMY LAPAROSCOPIC N/A 05/01/2017 Laterality: N/A; Surgeon: Norman Granados MD; Location: [facility] BUC OR APPENDECTOMY 2007 HYSTERECTOMY Bilateral 1995 TUBAL LIGATION 1995 SECTION History reviewed. No pertinent family history. Social History Socioeconomic History Marital status: Spouse name: Not on file Number of children: Not on file Years of education: Not on file Highest education level: Not on file Occupational History Not on file Social Needs Financial resource strain: Not on file Food insecurity Worry: Not on file Inability: Not on file Transportation needs Medical: Not on file Non-medical: Not on file Tobacco Use Smoking status: Never Smoker Smokeless tobacco: Never Used Substance and Sexual Activity Alcohol use: Yes Frequency: Monthly or less Drug use: No Sexual activity: Not on file Lifestyle Physical activity Days per week: Not on file Minutes per session: Not on file Stress: Not on file Relationships Social connections Talks on phone: Not on file Gets together: Not on file Attends adventism service: Not on file Active member of club or organization: Not on file Attends meetings of clubs or organizations: Not on file Relationship status: Not on file Intimate partner violence Fear of current or ex partner: Not on file Emotionally abused: Not on file Physically abused: Not on file Forced sexual activity: Not on file Other Topics Concern Not on file Social History Narrative Not on file Review of Systems Pertinent items are noted in HPI. General Plastics Review of Systems: Do you have any of the following: Chills, Fatigue, Fever or Night Sweats: no. Ear pain or eye discharge: no. Hearing loss or visual changes: no. Sore throat or chronic cough: no. Shortness of breath: no. Chest pain, swelling, or heart palpitations: no. Abdominal pain: no. Constipation or diarrhea: no. Heartburn or Nausea: no. Rash or skin problems: no. Dizziness or numbness: no. Headaches or Migraines: no. Seizures: no. Joint pain, joint swelling or muscle weakness: no. Bruise or bleed easily: no. Any swollen lymph nodes: no. Objective: BP 133/85 (BP Location: Left arm, BP Position: Sitting) Pulse 102 Temp 99 F (37.2 C) (Temporal) Wt 60 kg (132 lb 4.8 oz) BMI 30.75 kg/m Smoking Status Never Smoker There are no dressings on the incisions. Incisions are well approximated. There is no evidence of infection. There is some ecchymosis noted medially and inferiorly. There is a small rim of dark tissue on the right upper outer areola. Sutures around the areola were removed. Assessment: Final pathology demonstrates benign tissue. Patient had removed all dressings and applied ice despite instructions reviewed with her Plan: Pt to RETURN in one week FOR RECHECK. They are encouraged to call in the interim with any problems or questions relating to this encounter. * Helen Hugo - 02/28/2020 9:30 AM EST General Plastics Review of Systems: Do you have any of the following: Chills, Fatigue, Fever or Night Sweats: no. Ear pain or eye discharge: no. Hearing loss or visual changes: no. Sore throat or chronic cough: no. Shortness of breath: no. Chest pain, swelling, or heart palpitations: no. Abdominal pain: no. Constipation or diarrhea: no. Heartburn or Nausea: no. Rash or skin problems: no. Dizziness or numbness: no. Headaches or Migraines: no. Seizures: no. Joint pain, joint swelling or muscle weakness: no. Bruise or bleed easily: no. Any swollen lymph nodes: no. documented in this encounter* Sabina Sanchez MD - 03/06/2020 10:15 AM EST Subjective: Lima Jordan is an 49 y.o. female who presents for evaluation of the bilateral breast reduction done a few weeks ago. 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 She states she cannot find a front fastening bra and instead has a tank bra.. Allergies Allergen Reactions Bee Venom Hives Aspirin Hives Caffeine Other reaction(s): Other (See Comments) anxiety Contrast Dye [Ivp Dye, Iodine Containing] Hives Morphine Feels like body being set on fire Penicillins Pt states was childhood reaction. Dad told her she got hives. Percocet [Oxycodone-Acetaminophen] Itching Stated I can't function Red Dye Sulfamethoxazole Other reaction(s): GI Intolerance GI problems Bactrim Current Outpatient Medications Medication Sig Dispense Refill amitriptyline 25 MG Tab take 25 mg by mouth At bedtime.. amLODIPine 10 MG tablet Take 10 mg by mouth daily. estradiol 2 MG Tab take 2 mg by mouth daily.. hydrOXYzine HCl 25 MG Tab tablet Take 1 tablet by mouth every 6 hours as needed for Itching. 30 tablet 0 hyoscyamine 0.125 MG Tab SL take 1 tablet by mouth every 4 hours as needed for Cramping (GI spasm).. 15 tablet 0 levothyroxine 88 MCG Tab take 88 mcg by mouth daily.. lisinopril 20 MG Tab take 20 mg by mouth daily.. ondansetron 4 MG Tab Dispersible tablet Take 1 tablet by mouth every 4 hours as needed for Nausea. Place on tongue 30 tablet 0 RA VITAMIN D-3 5000 units Cap capsule Take 5,000 Units by mouth daily. 1 sulfamethoxazole-trimethoprim 800-160 MG Tab take 1 tablet by mouth 2 times daily.. 20 tablet 0 HYDROcodone-Acetaminophen (Vicodin) 5-300 MG tablet Take 5 mg of opiate by mouth every 4 hours as needed for Moderate Pain for up to 3 days. 10 tablet 0 No current facility-administered medications for this visit. Past Medical History: Diagnosis Date Essential hypertension, benign Hypothyroidism Kidney stone Migraine Stroke at age 44, no residual symptoms Past Surgical History: Procedure Laterality Date REDUCTION MAMMOPLASTY Bilateral 02/20/2020 Laterality: Bilateral; Surgeon: Sabina Sanchez MD; Location: [facility] OR CHOLECYSTECTOMY LAPAROSCOPIC N/A 05/01/2017 Laterality: N/A; Surgeon: Norman Granados MD; Location: [facility] OR APPENDECTOMY 2007 HYSTERECTOMY Bilateral 1995 TUBAL LIGATION 1995 SECTION 1992,1994 History reviewed. No pertinent family history. Social History Socioeconomic History Marital status: Spouse name: Not on file Number of children: Not on file Years of education: Not on file Highest education level: Not on file Occupational History Not on file Social Needs Financial resource strain: Not on file Food insecurity Worry: Not on file Inability: Not on file Transportation needs Medical: Not on file Non-medical: Not on file Tobacco Use Smoking status: Never Smoker Smokeless tobacco: Never Used Substance and Sexual Activity Alcohol use: Yes Frequency: Monthly or less Drug use: No Sexual activity: Not on file Lifestyle Physical activity Days per week: Not on file Minutes per session: Not on file Stress: Not on file Relationships Social connections Talks on phone: Not on file Gets together: Not on file Attends adventism service: Not on file Active member of club or organization: Not on file Attends meetings of clubs or organizations: Not on file Relationship status: Not on file Intimate partner violence Fear of current or ex partner: Not on file Emotionally abused: Not on file Physically abused: Not on file Forced sexual activity: Not on file Other Topics Concern Not on file Social History Narrative Not on file Review of Systems Pertinent items are noted in HPI. General Plastics Review of Systems: Do you have any of the following: Chills, Fatigue, Fever or Night Sweats: no. Ear pain or eye discharge: no. Hearing loss or visual changes: no. Sore throat or chronic cough: no. Shortness of breath: no. Chest pain, swelling, or heart palpitations: no. Abdominal pain: no. Constipation or diarrhea: no. Heartburn or Nausea: no. Rash or skin problems: no. Dizziness or numbness: no. Headaches or Migraines: no. Seizures: no. Joint pain, joint swelling or muscle weakness: no. Bruise or bleed easily: no. Any swollen lymph nodes: no. Objective: BP 131/84 (BP Location: Left arm, BP Position: Sitting) Pulse 101 Temp 98.8 F (37.1 C) (Temporal) Ht 1.397 m (4' 7) Wt 60.8 kg (134 lb) BMI 31.14 kg/m Smoking Status Never Smoker Incisions are well approximated. There is no evidence of rash. There is no evidence of infection ordrainage. Some of the glue was removed. She puts her bra back on an is observed to lift her arms over her head to put on her coat. She is cautioned of lifting as well as raising her arms to avoid wound dehiscence. She also is encouraged to find a front fastening bra Assessment: Pt presents for ongoing assessment of operative course and is noted to have a SATISFACTORY POST-OP COURSE. Plan: Pt to RETURN in 3 weeks FOR RECHECK. They are encouraged to call in the interim with any problems or questions relating to this encounter. * Helen Hugo - 03/06/2020 10:15 AM EST General Plastics Review of Systems: Do you have any of the following: Chills, Fatigue, Fever or Night Sweats: no. Ear pain or eye discharge: no. Hearing loss or visual changes: no. Sore throat or chronic cough: no. Shortness of breath: no. Chest pain, swelling, or heart palpitations: no. Abdominal pain: no. Constipation or diarrhea: no. Heartburn or Nausea: no. Rash or skin problems: no. Dizziness or numbness: no. Headaches or Migraines: no. Seizures: no. Joint pain, joint swelling or muscle weakness: no. Bruise or bleed easily: no. Any swollen lymph nodes: no. documented in this encounter* Sabina Sanchez MD - 03/27/2020 1:45 PM EST Subjective: Lima Jordan is an 49 y.o. female who presents for evaluation of bilateral breast reduction. She states she removed the gauze because it was itching.. Allergies Allergen Reactions Bee Venom Hives Wound Dressing Adhesive Rash and Blisters Aspirin Hives Caffeine Other reaction(s): Other (See Comments) anxiety Contrast Dye [Ivp Dye, Iodine Containing] Hives Morphine Feels like body being set on fire Penicillins Pt states was childhood reaction. Dad told her she got hives. Percocet [Oxycodone-Acetaminophen] Itching Stated I can't function Red Dye Sulfamethoxazole Other reaction(s): GI Intolerance GI problems Bactrim Current Outpatient Medications Medication Sig Dispense Refill amitriptyline 25 MG Tab take 25 mg by mouth At bedtime.. amLODIPine 10 MG tablet Take 10 mg by mouth daily. cephALEXin 500 MG capsule Take 1 capsule by mouth 2 times daily for 7 days. 14 capsule 0 estradiol 2 MG Tab take 2 mg by mouth daily.. hydrOXYzine HCl 25 MG Tab tablet Take 1 tablet by mouth every 6 hours as needed for Itching. 30 tablet 0 hyoscyamine 0.125 MG Tab SL take 1 tablet by mouth every 4 hours as needed for Cramping (GI spasm).. 15 tablet 0 levothyroxine 88 MCG Tab take 88 mcg by mouth daily.. lisinopril 20 MG Tab take 20 mg by mouth daily.. ondansetron 4 MG Tab Dispersible tablet Take 1 tablet by mouth every 4 hours as needed for Nausea. Place on tongue 30 tablet 0 ondansetron 4 MG Tab Dispersible tablet Take 1 tablet by mouth every [address]. [address] on tongue 15 tablet 0 RA VITAMIN D-3 5000 units Cap capsule Take 5,000 Units by mouth daily. 1 sulfamethoxazole-trimethoprim 800-160 MG Tab take 1 tablet by mouth 2 times daily.. 20 tablet 0 HYDROcodone-Acetaminophen (Vicodin) 5-300 MG tablet Take 5 mg of opiate by mouth every 4 hours as needed for Moderate Pain for up to 3 days. 10 tablet 0 No current facility-administered medications for this visit. Past Medical History: Diagnosis Date Essential hypertension, benign Hypothyroidism Kidney stone Migraine Stroke at age 44, no residual symptoms Past Surgical History: Procedure Laterality Date BREAST REDUCTION Bilateral 02/20/2020 Laterality: Bilateral; Surgeon: Sabina Sanchez MD; Location: [facility] OR CHOLECYSTECTOMY LAPAROSCOPIC N/A 05/01/2017 Laterality: N/A; Surgeon: Norman Granados MD; Location: [facility] BUC OR APPENDECTOMY 2007 HYSTERECTOMY Bilateral 1995 TUBAL LIGATION 1995 SECTION History reviewed. No pertinent family history. Social History Socioeconomic History Marital status: Spouse name: Not on file Number of children: Not on file Years of education: Not on file Highest education level: Not on file Occupational History Not on file Social Needs Financial resource strain: Not on file Food insecurity Worry: Not on file Inability: Not on file Transportation needs Medical: Not on file Non-medical: Not on file Tobacco Use Smoking status: Never Smoker Smokeless tobacco: Never Used Substance and Sexual Activity Alcohol use: Yes Frequency: Monthly or less Drug use: No Sexual activity: Not on file Lifestyle Physical activity Days per week: Not on file Minutes per session: Not on file Stress: Not on file Relationships Social connections Talks on phone: Not on file Gets together: Not on file Attends adventism service: Not on file Active member of club or organization: Not on file Attends meetings of clubs or organizations: Not on file Relationship status: Not on file Intimate partner violence Fear of current or ex partner: Not on file Emotionally abused: Not on file Physically abused: Not on file Forced sexual activity: Not on file Other Topics Concern Not on file Social History Narrative Not on file Review of Systems Pertinent items are noted in HPI. No notes on file Objective: BP 128/89 Pulse 93 Temp 95.6 F (35.3 C) Ht 1.397 m (4' 7) Wt 61.9 kg (136 lb 8 oz) BMI 31.73 kg/m Smoking Status Never Smoker Incisions are well approximated. There was a small scab at the base of the right breast which was debrided and is noted to have a superficial wound beneath. There is palpable seromas bilaterally. Thepatient is wearing her garment which does not button or open in front. Assessment: Status post bilateral breast reduction Plan: Pt to RETURN in 4-5 weeks FOR RECHECK. They are encouraged to call in the interim with any problems or questions relating to this encounter. documented in this encounter* Sabina Sanchez MD - 10/05/2019 9:30 AM EDT Subjective: Lima Jordan is an 48 y.o. female who presents for evaluation for Breast reduction consult. C/o back and neck pain. Pt states she uses a heating pad and sees a chiropractor for the pain. Pt states she wears a 38C bra. Allergies Allergen Reactions Aspirin Hives Contrast Dye [Ivp Dye, Iodine Containing] Hives Morphine Feels like body being set on fire Penicillins Pt states unknown reaction Percocet [Oxycodone-Acetaminophen] Stated I can't function Current Outpatient Medications Medication Sig Dispense Refill amitriptyline 25 MG Tab take 25 mg by mouth At bedtime.. cephALEXin 500 MG Cap take 1 capsule by mouth every 6 hours.. (Patient not taking: Reported on 10/05/2019) 40 capsule 0 estradiol 2 MG Tab take 2 mg by mouth daily.. hydrOXYzine HCl 25 MG Tab tablet Take 1 tablet by mouth every 6 hours as needed for Itching. (Patient not taking: Reported on 10/05/2019) 30 tablet 0 hyoscyamine 0.125 MG Tab SL take 1 tablet by mouth every 4 hours as needed for Cramping (GI spasm).. (Patient not taking: Reported on 10/05/2019) 15 tablet 0 levothyroxine 88 MCG Tab take 88 mcg by mouth daily.. lisinopril 20 MG Tab take 20 mg by mouth daily.. ondansetron 4 MG Tab Dispersible tablet Take 1 tablet by mouth every 4 hours as needed for Nausea. Place on tongue (Patient not taking: Reported on 10/05/2019) 30 tablet 0 predniSONE 20 MG Tab tablet 3 tabs daily x 3days; 2 tabs daily x 3days; 1 tab daily x 3days then 1/2 tablet daily x 3days (Patient not taking: Reported on 10/05/2019) 20 tablet 0 RA VITAMIN D-3 5000 units Cap capsule Take 5,000 Units by mouth daily. 1 sulfamethoxazole-trimethoprim 800-160 MG Tab take 1 tablet by mouth 2 times daily.. (Patient not taking: Reported on 10/05/2019) 20 tablet 0 No current facility-administered medications for this visit. Past Medical History: Diagnosis Date Essential hypertension, benign Good exercise tolerance MET > 4 runs up stairs History of corticosteroid therapy Hypothyroidism Kidney stone Migraine Pain 10/10 and nausea Stroke Wears glasses Past Surgical History: Procedure Laterality Date CHOLECYSTECTOMY LAPAROSCOPIC N/A 05/01/2017 Laterality: N/A; Surgeon: Norman Granados MD; Location: [facility] OR APPENDECTOMY 2007 HYSTERECTOMY Bilateral 1995 TUBAL LIGATION 1995 SECTION 1992,1994 History reviewed. No pertinent family history. Social History Socioeconomic History Marital status: Spouse name: Not on file Number of children: Not on file Years of education: Not on file Highest education level: Not on file Occupational History Not on file Social Needs Financial resource strain: Not on file Food insecurity Worry: Not on file Inability: Not on file Transportation needs Medical: Not on file Non-medical: Not on file Tobacco Use Smoking status: Never Smoker Smokeless tobacco: Never Used Substance and Sexual Activity Alcohol use: Yes Frequency: Monthly or less Drug use: No Sexual activity: Not on file Lifestyle Physical activity Days per week: Not on file Minutes per session: Not on file Stress: Not on file Relationships Social connections Talks on phone: Not on file Gets together: Not on file Attends adventism service: Not on file Active member of club or organization: Not on file Attends meetings of clubs or organizations: Not on file Relationship status: Not on file Intimate partner violence Fear of current or ex partner: Not on file Emotionally abused: Not on file Physically abused: Not on file Forced sexual activity: Not on file Other Topics Concern Not on file Social History Narrative Not on file Review of Systems Pertinent items are noted in HPI. General Plastics Review of Systems: Do you have any of the following: Chills, Fatigue, Fever or Night Sweats: no. Ear pain or eye discharge: no. Hearing loss or visual changes: no. Sore throat or chronic cough: no. Shortness of breath: no. Chest pain, swelling, or heart palpitations: no. Abdominal pain: no. Constipation or diarrhea: no. Heartburn or Nausea: no. Rash or skin problems: no. Dizziness or numbness: no. Headaches or Migraines: no. Seizures: no. Joint pain, joint swelling or muscle weakness: no. Bruise or bleed easily: no. Any swollen lymph nodes: no. Objective: BP 134/90 (BP Location: Left arm, BP Position: Sitting) Pulse 95 Temp 99.1 F (37.3 C) (Temporal) Ht 1.397 m (4' 7) Wt 60.9 kg (134 lb 3.2 oz) BMI 31.19 kg/m Smoking Status Never Smoker Bilateral breast hypertrophy. No palpable masses or axillary adenopathy. Deep shoulder grooves Hypertrophy of the trapezius The left breast is slightly more ptotic than the right. Sternal notch to N/A (L-25.5, R-24.5) Estimated reduction 250-350gm Assessment: She would be a good candidate for breast reduction surgery Plan: The procedure of breast reduction was thoroughly reviewed with the patient. The patient's goals and expectation for the surgery were reviewed, as well as the reasonable expected outcome. The expected pre-, intra-, and post- operative course was reviewed. The pt was given copies of Pre- and Post-Operative Instructions to review as well as a Consent specific to their procedure if available. The need for medical clearance was also reviewed with them. Pt to Obtain Further Documentation to Support the Need for the Proposed Procedure. We will then submit all the obtained info to the insurance company to obtain pre-authorization. I spent 30 minutes face to face with the patient. Greater than 50% of this time was spent counseling the patient regarding the proposed procedure or instruction. * Helen Hugo - 10/05/2019 9:30 AM EDT General Plastics Review of Systems: Do you have any of the following: Chills, Fatigue, Fever or Night Sweats: no. Ear pain or eye discharge: no. Hearing loss or visual changes: no. Sore throat or chronic cough: no. Shortness of breath: no. Chest pain, swelling, or heart palpitations: no. Abdominal pain: no. Constipation or diarrhea: no. Heartburn or Nausea: no. Rash or skin problems: no. Dizziness or numbness: no. Headaches or Migraines: no. Seizures: no. Joint pain, joint swelling or muscle weakness: no. Bruise or bleed easily: no. Any swollen lymph nodes: no. documented in this encounter* Sabina Sanchez MD - 05/01/2020 9:15 AM EST Subjective: Lima Jordan is an 49 y.o. female who presents for evaluation of Bilateral breast reduction. Denies pain or itching. Pt states that she is back to 90% of her daily activities. Allergies Allergen Reactions Bee Venom Hives Wound Dressing Adhesive Rash and Blisters Aspirin Hives Caffeine Other reaction(s): Other (See Comments) anxiety Contrast Dye [Ivp Dye, Iodine Containing] Hives Morphine Feels like body being set on fire Penicillins Pt states was childhood reaction. Dad told her she got hives. Percocet [Oxycodone-Acetaminophen] Itching Stated I can't function Red Dye Sulfamethoxazole Other reaction(s): GI Intolerance GI problems Bactrim Current Outpatient Medications Medication Sig Dispense Refill amitriptyline 25 MG Tab take 25 mg by mouth At bedtime.. amLODIPine 10 MG tablet Take 10 mg by mouth daily. estradiol 2 MG Tab take 2 mg by mouth daily.. hydrOXYzine HCl 25 MG Tab tablet Take 1 tablet by mouth every 6 hours as needed for Itching. 30 tablet 0 hyoscyamine 0.125 MG Tab SL take 1 tablet by mouth every 4 hours as needed for Cramping (GI spasm).. 15 tablet 0 levothyroxine 88 MCG Tab take 88 mcg by mouth daily.. lisinopril 20 MG Tab take 20 mg by mouth daily.. ondansetron 4 MG Tab Dispersible tablet Take 1 tablet by mouth every 4 hours as needed for Nausea. Place on tongue 30 tablet 0 ondansetron 4 MG Tab Dispersible tablet Take 1 tablet by mouth every [address]. [address] on tongue 15 tablet 0 RA VITAMIN D-3 5000 units Cap capsule Take 5,000 Units by mouth daily. 1 sulfamethoxazole-trimethoprim 800-160 MG Tab take 1 tablet by mouth 2 times daily.. 20 tablet 0 HYDROcodone-Acetaminophen (Vicodin) 5-300 MG tablet Take 5 mg of opiate by mouth every 4 hours as needed for Moderate Pain for up to 3 days. 10 tablet 0 No current facility-administered medications for this visit. Past Medical History: Diagnosis Date Essential hypertension, benign Hypothyroidism Kidney stone Migraine Stroke at age 44, no residual symptoms Past Surgical History: Procedure Laterality Date BREAST REDUCTION Bilateral 02/20/2020 Laterality: Bilateral; Surgeon: Sabina Sanchez MD; Location: [facility] ONT OR CHOLECYSTECTOMY LAPAROSCOPIC N/A 05/01/2017 Laterality: N/A; Surgeon: Norman Granados MD; Location: [facility] BUC OR APPENDECTOMY 2007 HYSTERECTOMY Bilateral 1995 TUBAL LIGATION 1995 SECTION 1992,1994 No family history on file. Social History Socioeconomic History Marital status: Spouse name: Not on file Number of children: Not on file Years of education: Not on file Highest education level: Not on file Occupational History Not on file Tobacco Use Smoking status: Never Smoker Smokeless tobacco: Never Used Substance and Sexual Activity Alcohol use: Yes Drug use: No Sexual activity: Not on file Other Topics Concern Not on file Social History Narrative Not on file Social Determinants of Health Financial Resource Strain: Difficulty of Paying Living Expenses: Not on file Food Insecurity: Worried About Running Out of Food in the Last Year: Not on file Ran Out of Food in the Last Year: Not on file Transportation Needs: Lack of Transportation (Medical): Not on file Lack of Transportation (Non-Medical): Not on file Physical Activity: Days of Exercise per Week: Not on file Minutes of Exercise per Session: Not on file Stress: Feeling of Stress : Not on file Social Connections: Frequency of Communication with Friends and Family: Not on file Frequency of Social Gatherings with Friends and Family: Not on file Attends Latter-Day Services: Not on file Active Member of Clubs or Organizations: Not on file Attends Club or Organization Meetings: Not on file Marital Status: Not on file Intimate Partner Violence: Fear of Current or Ex-Partner: Not on file Emotionally Abused: Not on file Physically Abused: Not on file Sexually Abused: Not on file Review of Systems Pertinent items are noted in HPI. General Plastics Review of Systems: Do you have any of the following: Chills, Fatigue, Fever or Night Sweats: no. Ear pain or eye discharge: no. Hearing loss or visual changes: no. Sore throat or chronic cough: no. Shortness of breath: no. Chest pain, swelling, or heart palpitations: no. Abdominal pain: no. Constipation or diarrhea: no. Heartburn or Nausea: no. Rash or skin problems: no. Dizziness or numbness: no. Headaches or Migraines: no. Seizures: no. Joint pain, joint swelling or muscle weakness: no. Bruise or bleed easily: no. Any swollen lymph nodes: no. Objective: BP (!) 138/95 (BP Location: Right arm, BP Position: Sitting) Pulse 96 Temp 97.4 F (36.3 C) (Temporal) Wt 60.9 kg (134 lb 3.2 oz) BMI 31.19 kg/m Smoking Status Never Smoker Incisions of the breast are well approximated. A few pieces of suture material was debrided from the surface. There is no evidence of infection or drainage. Assessment: Status post bilateral breast reduction. Plan: She can return to work. I asked her to ease into more physical labor. The pt is to call with any further problems or questions, otherwise I will see them back PRN. Dyan Portilloflory Helen - 05/01/2020 9:15 AM EST General Plastics Review of Systems: Do you have any of the following: Chills, Fatigue, Fever or Night Sweats: no. Ear pain or eye discharge: no. Hearing loss or visual changes: no. Sore throat or chronic cough: no. Shortness of breath: no. Chest pain, swelling, or heart palpitations: no. Abdominal pain: no. Constipation or diarrhea: no. Heartburn or Nausea: no. Rash or skin problems: no. Dizziness or numbness: no. Headaches or Migraines: no. Seizures: no. Joint pain, joint swelling or muscle weakness: no. Bruise or bleed easily: no. Any swollen lymph nodes: no. documented in this encounter* Sabina Sanchez MD - 03/20/2020 2:30 PM EST Subjective: Lima Jordan is an 49 y.o. female who presents for evaluation of her right breast. She underwent drainage in the emergency room last week..Patient is here for her 3 week post op JUAN breast reduction. Patient is still having drainage and is keeping track of amount at home. Patient denies pain but states she has alot of itching due to a new allergy from the bandaid with blue tape. The tape caused redness, blisters, itching, & rash like symptoms. Allergies Allergen Reactions Bee Venom Hives Wound Dressing Adhesive Rash and Blisters Aspirin Hives Caffeine Other reaction(s): Other (See Comments) anxiety Contrast Dye [Ivp Dye, Iodine Containing] Hives Morphine Feels like body being set on fire Penicillins Pt states was childhood reaction. Dad told her she got hives. Percocet [Oxycodone-Acetaminophen] Itching Stated I can't function Red Dye Sulfamethoxazole Other reaction(s): GI Intolerance GI problems Bactrim Current Outpatient Medications Medication Sig Dispense Refill amitriptyline 25 MG Tab take 25 mg by mouth At bedtime.. amLODIPine 10 MG tablet Take 10 mg by mouth daily. cephALEXin 500 MG capsule Take 1 capsule by mouth every 12 hours for 7 days. 14 capsule 0 estradiol 2 MG Tab take 2 mg by mouth daily.. hyoscyamine 0.125 MG Tab SL take 1 tablet by mouth every 4 hours as needed for Cramping (GI spasm).. 15 tablet 0 levothyroxine 88 MCG Tab take 88 mcg by mouth daily.. lisinopril 20 MG Tab take 20 mg by mouth daily.. ondansetron 4 MG Tab Dispersible tablet Take 1 tablet by mouth every [address]. [address] on tongue 15 tablet 0 RA VITAMIN D-3 5000 units Cap capsule Take 5,000 Units by mouth daily. 1 HYDROcodone-Acetaminophen (Vicodin) 5-300 MG tablet Take 5 mg of opiate by mouth every 4 hours as needed for Moderate Pain for up to 3 days. 10 tablet 0 hydrOXYzine HCl 25 MG Tab tablet Take 1 tablet by mouth every 6 hours as needed for Itching. (Patient not taking: Reported on 03/20/2020) 30 tablet 0 ondansetron 4 MG Tab Dispersible tablet Take 1 tablet by mouth every 4 hours as needed for Nausea. Place on tongue (Patient not taking: Reported on 03/20/2020) 30 tablet 0 sulfamethoxazole-trimethoprim 800-160 MG Tab take 1 tablet by mouth 2 times daily.. (Patient not taking: Reported on 03/20/2020) 20 tablet 0 No current facility-administered medications for this visit. Past Medical History: Diagnosis Date Essential hypertension, benign Hypothyroidism Kidney stone Migraine Stroke at age 44, no residual symptoms Past Surgical History: Procedure Laterality Date BREAST REDUCTION Bilateral 02/20/2020 Laterality: Bilateral; Surgeon: Sabina Sanchez MD; Location: [facility] ONT OR CHOLECYSTECTOMY LAPAROSCOPIC N/A 05/01/2017 Laterality: N/A; Surgeon: Norman Granados MD; Location: [facility] BUC OR APPENDECTOMY 2007 HYSTERECTOMY Bilateral 1995 TUBAL LIGATION 1995 SECTION 1992,1994 History reviewed. No pertinent family history. Social History Socioeconomic History Marital status: Spouse name: Not on file Number of children: Not on file Years of education: Not on file Highest education level: Not on file Occupational History Not on file Social Needs Financial resource strain: Not on file Food insecurity Worry: Not on file Inability: Not on file Transportation needs Medical: Not on file Non-medical: Not on file Tobacco Use Smoking status: Never Smoker Smokeless tobacco: Never Used Substance and Sexual Activity Alcohol use: Yes Frequency: Monthly or less Drug use: No Sexual activity: Not on file Lifestyle Physical activity Days per week: Not on file Minutes per session: Not on file Stress: Not on file Relationships Social connections Talks on phone: Not on file Gets together: Not on file Attends adventism service: Not on file Active member of club or organization: Not on file Attends meetings of clubs or organizations: Not on file Relationship status: Not on file Intimate partner violence Fear of current or ex partner: Not on file Emotionally abused: Not on file Physically abused: Not on file Forced sexual activity: Not on file Other Topics Concern Not on file Social History Narrative Not on file Review of Systems Pertinent items are noted in HPI. No notes on file Objective: BP 125/79 (BP Location: Left arm, BP Position: Sitting) Pulse 102 Temp 99.5 F (37.5 C) Ht 1.397 m (4' 7) Wt 59.9 kg (132 lb) BMI 30.68 kg/m Smoking Status Never Smoker Patient states that she has not empty the drain since last Thursday. She has minimal drainage in the bag. There is no redness of the breast or tenderness to palpation. The drain was removed. Remaining sutures are removed. Assessment: Culture grew out Escherichia coli and therefore I will continue her on Keflex. She states she has not been taking it as directed and has only used 9 pills since her visit to the emergency room last . Plan: Pt to RETURN in 1 week FOR RECHECK. They are encouraged to call in the interim with any problems or questions relating to this encounter. documented in this encounter* Aury Mera MD - 06/18/2020 11:53 AM EDT Lima Jordan is a 49 y.o. female Video Visit [address] [facility] [address] [facility] [id number] Via Real-time Synchronous Audiovisual [facility] 06/18/2020 Aury Mera MD Provider Location: Office Patient Location Technology Services Manager: None Patient Location: Patient's Home Patient: Lima Jordan Date of : 1970 (49 y.o. female) PCP: Aury Mera MD Video Visit Consent Statement: I discussed risks, benefits and alternatives of a real-time synchronous audiovisual consultation with the patient (and any accompanying persons) including the risks that the patient s personal health details and medical records will be discussed over real-time, synchronous, interactive video/audio/telecommunication technology, the visit will not be recorded without the express consent of both the provider and the patient, and that there are some limitations compared to [id number] evaluations. We elected to proceed. Assessment/Plan: Problem List Items Addressed This Visit Other Vitamin D deficiency Relevant Medications ergocalciferol (ERGOCALCIFEROL) 1,250 mcg (50,000 unit) capsule Fatigue - Primary There may be multiple causes for your symptoms. Abrupt stopping of Cymbalta, vitamin deficiency, anemia or thyroid dysfunction. I will obtain labs today and follow up with you. In the meantime, I want your to start B12 injections, your B12 was low 200's and you are slightly anemic. I want you to also restart vitamin D, will prescribe the higher dose due to the low level at 18. Continue your synthroid as you are. Relevant Orders TSH T4, Free Other Visit Diagnoses B12 deficiency Anemia, unspecified type Relevant Orders CBC and Differential Ferritin Return in about 4 weeks (around 07/16/2020). Lima Jordan is a 49 y.o. female who presents for Chief Complaint Patient presents with Fatigue HPI 49 y/o female with history of Hypertension, stroke, hypothyroidism and insomnia. She feels like sheis exhausted with no energy. She has felt this way for a month. She did see Dr. Harrington and was diagnosed with fibromyalgia. Doing a trial on Cymbalta. Feels worse on this medication. Propanolol was prescribed as well. Feels like the life has been sucked out of her. She has stopped taking them for about 5 days now. Doesn't feel depressed. 7-8 hours of sleep at night. No diabetic symptoms. Thyroid-has been on the same dose for years. Diagnosed clinically and with lab work. She does have vitamin D deficiency . Patient Active Problem List Diagnosis Hypertension Stroke (HCC) Postartificial menopausal syndrome Hypothyroidism Vitamin D deficiency Spina bifida occulta Migraine Mixed hyperlipidemia Insomnia Osteopenia Chronic right hip pain Macromastia Rectal bleeding Family history of colon cancer Fatigue Past Surgical History: Procedure Laterality Date CARPAL TUNNEL RELEASE Right 11/2011 SECTION CHOLECYSTECTOMY 04/2017 COLONOSCOPY 2017 CYST REMOVAL 09/2016 back HYSTERECTOMY Family History Problem Relation Age of Onset Heart disease Mother Hypertension Mother Heart attack Mother Stroke Mother Hypertension Father Heart disease Father Diabetes Father Stroke Father Parkinson's Brother Alcohol abuse Brother Colon cancer Maternal Grandmother COPD Paternal Grandmother COPD Paternal Grandfather Social History Tobacco Use Smoking status: Never Smoker Smokeless tobacco: Never Used Substance Use Topics Alcohol use: Yes Comment: SOCIALLY Drug use: No Current Outpatient Medications Medication Sig Dispense Refill amitriptyline (ELAVIL) 25 MG tablet Take 25 mg by mouth nightly. amLODIPine (NORVASC) 10 MG tablet Take 1 (one) tablet (10 mg total) by mouth daily . 90 tablet 1 fexofenadine (DOMINGA) 180 MG tablet Take 1 (one) tablet (180 mg total) by mouth daily . 30 tablet 3 fluticasone propionate (FLONASE) 50 mcg/actuation nasal spray Instill 1 (one) spray into each nostril 2 (two) times a day . 16 g 5 levothyroxine (SYNTHROID, LEVOTHROID) 88 MCG tablet Take 1 (one) tablet (88 mcg total) by mouth once daily . 90 tablet 1 lisinopriL (PRINIVIL,ZESTRIL) 40 MG tablet take 1 tablet by mouth once daily 90 tablet 1 tiZANidine (ZANAFLEX) 4 MG tablet Take 8 mg by mouth nightly . zinc gluconate 100 mg Tab Take by mouth daily . cholecalciferol, vitamin D3, (VITAMIN D3) 5,000 unit Tab tablet Take 1 (one) tablet (5,000 Units total) by mouth daily . (Patient not taking: Reported on 06/18/2020 .) 30 tablet 11 ergocalciferol (ERGOCALCIFEROL) 1,250 mcg (50,000 unit) capsule Take 1 (one) capsule (50,000 Units total) by mouth once a week . 4 capsule 12 estradioL (ESTRACE) 2 MG tablet Take 1 (one) tablet (2 mg total) by mouth daily . 90 tablet 1 propranolol (INDERAL LA) 60 MG 24 hr capsule 0 No current facility-administered medications for this visit. Review of Systems Constitutional: Positive for fatigue. Negative for appetite change, diaphoresis and unexpected weight change. Respiratory: Negative for shortness of breath. Cardiovascular: Negative for chest pain and palpitations. Endocrine: Negative for cold intolerance, heat intolerance, polydipsia, polyphagia and polyuria. Musculoskeletal: Positive for arthralgias. Skin: Negative for rash and wound. Neurological: Negative for dizziness and headaches. Psychiatric/Behavioral: Negative for decreased concentration and sleep disturbance. The patient is not nervous/anxious. Physical Exam: Wt Readings from Last 3 Encounters: 01/30/20 60.6 kg (133 lb 11.2 oz) 01/12/20 60.3 kg (132 lb 14.4 oz) 09/30/19 60.7 kg (133 lb 14.4 oz) BP Readings from Last 3 Encounters: 01/30/20 130/86 01/12/20 126/82 09/30/19 123/84 Physical Exam Constitutional: General: She is not in acute distress. Appearance: She is not ill-appearing. HENT: Head: Normocephalic. Eyes: Conjunctiva/sclera: Conjunctivae normal. Skin: Findings: No rash. Neurological: Mental Status: She is alert and oriented to person, place, and time. Psychiatric: Attention and Perception: Attention normal. Mood and Affect: Mood normal. Speech: Speech normal. Behavior: Behavior normal. Behavior is cooperative. Thought Content: Thought content normal. Health Maintenance Due Topic Date Due Wellness Visit Never done HIV Screening Never done COVID-19 Vaccine (1) Never done Hepatitis C Screening Never done Colorectal Cancer Screening 11/08/2019 Mammogram 04/28/2020 Goals Blood Pressure < 140/90 High blood pressure makes your heart work too hard. It can cause heart attack, stroke and kidney disease. Blood pressure goal is 140/90 or less. You will complete 150 minutes of formal exercise per week. You will maintain a BMI of 18.5-24.9 TOTAL CHOLESTEROL < 199 Total cholesterol goal is less than 199 Triglyceride goal is less than 150 HDL or good cholesterol is above 45 LDL goal is less than 100 Please note: Portions of this chart may have been created with [employer] voice recognition software. Occasional wrong-word or sound-like substitutions may have occurred due to inherent limitations of the voice recognition software. Please read the chart carefully and recognize, using context, where the substitutions have occurred. For any new medications prescribed today, patient was educated about indications for the medication, how to take the medication and potential side effects of the medications. documented in this encounter* Aury Mera MD - 06/18/2020 11:53 AM EDT Lima Jordan is a 49 y.o. female Video Visit [facility] [address] [facility] [address] [facility] [id number] Via Real-time Synchronous Audiovisual [facility] 06/18/2020 Aury Mera MD Provider Location: Office Patient Location Technology Services Manager: None Patient Location: Patient's Home Patient: Lima Jordan Date of : 1970 (49 y.o. female) PCP: Aury Mera MD Video Visit Consent Statement: I discussed risks, benefits and alternatives of a real-time synchronous audiovisual consultation with the patient (and any accompanying persons) including the risks that the patient s personal health details and medical records will be discussed over real-time, synchronous, interactive video/audio/telecommunication technology, the visit will not be recorded without the express consent of both the provider and the patient, and that there are some limitations compared to [id number] evaluations. We elected to proceed. Assessment/Plan: Problem List Items Addressed This Visit Other Vitamin D deficiency Relevant Medications ergocalciferol (ERGOCALCIFEROL) 1,250 mcg (50,000 unit) capsule Fatigue - Primary There may be multiple causes for your symptoms. Abrupt stopping of Cymbalta, vitamin deficiency, anemia or thyroid dysfunction. I will obtain labs today and follow up with you. In the meantime, I want your to start B12 injections, your B12 was low 200's and you are slightly anemic. I want you to also restart vitamin D, will prescribe the higher dose due to the low level at 18. Continue your synthroid as you are. Relevant Orders TSH T4, Free Other Visit Diagnoses B12 deficiency Anemia, unspecified type Relevant Orders CBC and Differential Ferritin Return in about 4 weeks (around 07/16/2020). Lima Jordan is a 49 y.o. female who presents for Chief Complaint Patient presents with Fatigue HPI 49 y/o female with history of Hypertension, stroke, hypothyroidism and insomnia. She feels like sheis exhausted with no energy. She has felt this way for a month. She did see Dr. Harrington and was diagnosed with fibromyalgia. Doing a trial on Cymbalta. Feels worse on this medication. Propanolol was prescribed as well. Feels like the life has been sucked out of her. She has stopped taking them for about 5 days now. Doesn't feel depressed. 7-8 hours of sleep at night. No diabetic symptoms. Thyroid-has been on the same dose for years. Diagnosed clinically and with lab work. She does have vitamin D deficiency . Patient Active Problem List Diagnosis Hypertension Stroke (HCC) Postartificial menopausal syndrome Hypothyroidism Vitamin D deficiency Spina bifida occulta Migraine Mixed hyperlipidemia Insomnia Osteopenia Chronic right hip pain Macromastia Rectal bleeding Family history of colon cancer Fatigue Past Surgical History: Procedure Laterality Date CARPAL TUNNEL RELEASE Right 11/2011 SECTION CHOLECYSTECTOMY 04/2017 COLONOSCOPY 2017 CYST REMOVAL 09/2016 back HYSTERECTOMY Family History Problem Relation Age of Onset Heart disease Mother Hypertension Mother Heart attack Mother Stroke Mother Hypertension Father Heart disease Father Diabetes Father Stroke Father Parkinson's Brother Alcohol abuse Brother Colon cancer Maternal Grandmother COPD Paternal Grandmother COPD Paternal Grandfather Social History Tobacco Use Smoking status: Never Smoker Smokeless tobacco: Never Used Substance Use Topics Alcohol use: Yes Comment: SOCIALLY Drug use: No Current Outpatient Medications Medication Sig Dispense Refill amitriptyline (ELAVIL) 25 MG tablet Take 25 mg by mouth nightly. amLODIPine (NORVASC) 10 MG tablet Take 1 (one) tablet (10 mg total) by mouth daily . 90 tablet 1 fexofenadine (DOMINGA) 180 MG tablet Take 1 (one) tablet (180 mg total) by mouth daily . 30 tablet 3 fluticasone propionate (FLONASE) 50 mcg/actuation nasal spray Instill 1 (one) spray into each nostril 2 (two) times a day . 16 g 5 levothyroxine (SYNTHROID, LEVOTHROID) 88 MCG tablet Take 1 (one) tablet (88 mcg total) by mouth once daily . 90 tablet 1 lisinopriL (PRINIVIL,ZESTRIL) 40 MG tablet take 1 tablet by mouth once daily 90 tablet 1 tiZANidine (ZANAFLEX) 4 MG tablet Take 8 mg by mouth nightly . zinc gluconate 100 mg Tab Take by mouth daily . cholecalciferol, vitamin D3, (VITAMIN D3) 5,000 unit Tab tablet Take 1 (one) tablet (5,000 Units total) by mouth daily . (Patient not taking: Reported on 06/18/2020 .) 30 tablet 11 ergocalciferol (ERGOCALCIFEROL) 1,250 mcg (50,000 unit) capsule Take 1 (one) capsule (50,000 Units total) by mouth once a week . 4 capsule 12 estradioL (ESTRACE) 2 MG tablet Take 1 (one) tablet (2 mg total) by mouth daily . 90 tablet 1 propranolol (INDERAL LA) 60 MG 24 hr capsule 0 No current facility-administered medications for this visit. Review of Systems Constitutional: Positive for fatigue. Negative for appetite change, diaphoresis and unexpected weight change. Respiratory: Negative for shortness of breath. Cardiovascular: Negative for chest pain and palpitations. Endocrine: Negative for cold intolerance, heat intolerance, polydipsia, polyphagia and polyuria. Musculoskeletal: Positive for arthralgias. Skin: Negative for rash and wound. Neurological: Negative for dizziness and headaches. Psychiatric/Behavioral: Negative for decreased concentration and sleep disturbance. The patient is not nervous/anxious. Physical Exam: Wt Readings from Last 3 Encounters: 01/30/20 60.6 kg (133 lb 11.2 oz) 01/12/20 60.3 kg (132 lb 14.4 oz) 09/30/19 60.7 kg (133 lb 14.4 oz) BP Readings from Last 3 Encounters: 01/30/20 130/86 01/12/20 126/82 09/30/19 123/84 Physical Exam Constitutional: General: She is not in acute distress. Appearance: She is not ill-appearing. HENT: Head: Normocephalic. Eyes: Conjunctiva/sclera: Conjunctivae normal. Skin: Findings: No rash. Neurological: Mental Status: She is alert and oriented to person, place, and time. Psychiatric: Attention and Perception: Attention normal. Mood and Affect: Mood normal. Speech: Speech normal. Behavior: Behavior normal. Behavior is cooperative. Thought Content: Thought content normal. Health Maintenance Due Topic Date Due Wellness Visit Never done HIV Screening Never done COVID-19 Vaccine (1) Never done Hepatitis C Screening Never done Colorectal Cancer Screening 11/08/2019 Mammogram 04/28/2020 Goals Blood Pressure < 140/90 High blood pressure makes your heart work too hard. It can cause heart attack, stroke and kidney disease. Blood pressure goal is 140/90 or less. You will complete 150 minutes of formal exercise per week. You will maintain a BMI of 18.5-24.9 TOTAL CHOLESTEROL < 199 Total cholesterol goal is less than 199 Triglyceride goal is less than 150 HDL or good cholesterol is above 45 LDL goal is less than 100 Please note: Portions of this chart may have been created with [employer] voice recognition software. Occasional wrong-word or sound-like substitutions may have occurred due to inherent limitations of the voice recognition software. Please read the chart carefully and recognize, using context, where the substitutions have occurred. For any new medications prescribed today, patient was educated about indications for the medication, how to take the medication and potential side effects of the medications. documented in this encounter Discharge Instructions * Attachments The following attachments cannot be sent through Care Everywhere. * Pain, Acute, Uncertain Cause (Irish) documented in this encounter* Instructions* Sabina Sanchez MD - 02/20/2020 Follow instructions given in the office documented in this encounter* Instructions* Cassius Soto PA-C - 03/15/2020 Please record the amount of drainage every [address] Sanchez can housing court judge went to remove the drain. * Attachments The following attachments cannot be sent through Care Everywhere. * Seroma: General Info (Irish) documented in this encounter Reason for Referral Status Reason Specialty Diagnoses / Procedures Referred By Contact Referred To Contact Pending Review Radiology Diagnoses Chronic right-sided low back pain without sciatica Procedures CT Abdomen Pelvis Without Contrast Kaci Bassett MD [address] [place] [address] Status Reason Specialty Diagnoses / Procedures Referred By Contact Referred To Contact Pending Review Specialty Services Required/Patien t's Best Interest Radiology Diagnoses Chronic right hip pain Procedures MR Hip Right With Contrast Darcie, Alise Dallas, SENIOR COMPUTER SPECIALIST [address] [place] [address] Status Reason Specialty Diagnoses / Procedures Referre d By Contact Referred To Contact Closed Radiology Diagnoses Chronic right hip pain Procedures MR Hip Right Without Contrast Alise Sprague, SENIOR COMPUTER SPECIALIST [address] [place] [address] Status Reason Specialty Diagnoses / Procedures Referre d By Contact Referred To Contact Closed Diagnoses Otitis externa, unspecified chronicity, unspecified laterality, unspecified type Right otitis media, unspecified otitis media type Darcie Alise Haynes, SENIOR COMPUTER SPECIALIST [address] [place] [phone] Status Reason Specialty Diagnoses / Procedures Referred By Contact Referred To Contact Authorized Specialty Services Required/Patie nt's Best Interest Otolaryngology (ENT) / Otolaryngology Diagnoses Chronic pain of both ears Darcie Alise Haynes, SENIOR COMPUTER SPECIALIST [address] [place] [phone] David Hawthorne MD [address] [address] Status Reason Specialty Diagnoses / Procedures Referred By Contact Referred To Contact Authorized Specialty Services Required/Patien t's Best Interest Plastic Surgery Diagnoses Large mass of breast DarcieAlise, SENIOR COMPUTER SPECIALIST [facility] [place] [address] Sabina Sanchez MD [address] [place] [address] Status Reason Specialty Diagnoses / Procedures Referre d By Contact Referred To Contact Closed Diagnoses Chronic pain of both ears Tierney Saleem, SENIOR COMPUTER SPECIALIST [address] [facility] [address] [address] Status Reason Specialty Diagnoses / Procedures Referred By Contact Referred To Contact Closed Specialty Services Required/Patient' s Best Interest Cardiology Diagnoses Pre-op evaluation Procedures ECG 12 Lead Alise Sprague, SENIOR COMPUTER SPECIALIST [address] [place] [phone] Status Reason Specialty Diagnoses / Procedures Referred By Contact Referred To Contact New Request Plastic Surgery Diagnoses Seroma of breast Cassius Soto PA-C [address] [place] [address] Sabina Sanchez MD [address] [place] [address] Status Reason Specialty Diagnoses / Procedures Referre d By Contact Referred To Contact Closed Procedures US SOFT TISSUE Cassius Soto PA-C [address] [place] [address] Status Reason Specialty Diagnoses / Procedures Referred By Contact Referred To Contact Authorized Radiology Diagnoses Encounter for screening mammogram for malignant neoplasm of breast Procedures Mammography Screening Bilateral Alise Sprague, HILLARY [address] [place] [address] Status Reason Specialty Diagnoses / Procedures Referred By Contact Referred To Contact Authorized Pain Medicine Diagnoses Chronic right hip pain Chronic right-sided low back pain without sciatica Aury Mera MD [address] [place] [address] Status Reason Specialty Diagnoses / Procedures Referred By Contact Referred To Contact Authorized Orthopedic Surgery Diagnoses Chronic right hip pain Chronic right-sided low back pain without sciatica Aury Mera MD [address] [place] [address] Jennifer Weber MD [facility] [place] [address] Specialty Diagnoses / Procedures Referred By Contact Referred To Contact Audiology / Otolaryngology Diagnoses Sensorineural hearing loss (SNHL) of both ears Tierney Saleem Julia, SENIOR COMPUTER SPECIALIST [address] [address] Alise Cobos AuD [address] [address] Referral ID Status Reason Start Date Expiration Date Visits Requested Visits Authorized [id number] Authorized Specialty Services Required/Pat ient's Best Interest 10/31/2020 10/31/2021 1 1 Specialty Diagnoses / Procedures Referred By Contac t Referred To Contact Neurology Diagnoses Migraine with aura and without status migrainosus, not intractable Aury Mera MD [address] [place] [address] [facility] [address] Medical Office [facility], [address] [place] [address] Referral ID Status Reason Start Date Expiration Date Visits Requested Visits Authorized [id number] Authorized Specialty Services Required/Pat ient's Best Interest 07/09/2021 07/09/2022 1 1 Specialty Diagnoses / Procedures Referred By Contac t Referred To Contact Diagnoses Migraine with aura and without status migrainosus, not intractable Hugh Calles MD [address] [address] Referral ID Status Reason Start Date Expiration Date V isits Requested Visits Authorized [id number] Pending Review 1 1 Specialty Diagnoses / Procedures Referred By Contac t Referred To Contact Radiology Diagnoses Encounter for screening for malignant neoplasm of breast, unspecified screening modality Procedures Mammography Screening Julio Bilateral Aury Mera MD [address] [place] [address] Referral ID Status Reason Start Date Expiration Date V isits Requested Visits Authorized [id number] Pending Review 05/15/2022 05/15/2023 1 1 Specialty Diagnoses / Procedures Referred By Contac t Referred To Contact Radiology Diagnoses Cognitive change Procedures CT Head Or Brain Without Contrast Aury Mera MD [address] [place] [address] Referral ID Status Reason Start Date Expiration Date V isits Requested Visits Authorized [id number] Pending Review 05/21/2023 05/20/2024 1 1 Referral ID Status Reason Start Date Expiration Date V isits Requested Visits Authorized [id number] Pending Review 05/21/2023 05/20/2024 1 1 Specialty Diagnoses / Procedures Referred By Contac t Referred To Contact Radiology Diagnoses Spina bifida occulta Low back pain, unspecified back pain laterality, unspecified chronicity, unspecified whether sciatica present Procedures MR Lumbar Spine Without Contrast Mac Preston PA-C [address] [place] [address] [place] [address] [address] Referral ID Status Reason Start Date Expiration Date V isits Requested Visits Authorized [id number] New Request 08/24/2023 08/23/2024 1 1 Specialty Diagnoses / Procedures Referred By Contac t Referred To Contact Plastic Surgery Diagnoses Symptomatic abdominal panniculus Aury Mera MD [address] [place] [address] Philip Tran, DO [address] [place] [address] Referral ID Status Reason Start Date Expiration Date Visits Requested Visits Authorized [id number] Authorized Specialty Services Required/Pat ient's Best Interest 11/23/2023 11/22/2024 1 1 Chief Complaint and Reason for Visit Chief Complaint Admit Date FIBROMYALGIA September 29, 2024 9:06 am Chief Complaint Admit Date FIBROMYALGIA September 29, 2024 9:06 am EORDERS September 30, 2024 8:42 am Reason for Visit Admit Date Migraine headache without aura September 9:06am Cerebrovascular accident (CVA) September 9:06am Additional Source Comments INFORMATION SOURCE (unrecogn ized section and content) DATE CREATED AUTHOR 08/28/2017 [facility] DATE CREATED AUTHOR AUTHOR'S ORGANIZ ATION 08/28/2017 [facility] DATE CREATED AUTHOR AUTHOR'S ORGANIZ ATION 06/29/2018 [facility] DATE CREATED AUTHOR AUTHOR'S ORGANIZ ATION 05/24/2022 [facility] DATE CREATED AUTHOR AUTHOR'S ORGANIZ ATION 11/01/2022 [facility] DATE CREATED AUTHOR AUTHOR'S ORGANIZ ATION 12/27/2023 [facility] DATE CREATED AUTHOR AUTHOR'S ORGANIZ ATION 03/19/2024 [facility] DATE CREATED AUTHOR AUTHOR'S ORGANIZ ATION 05/26/2024 [facility] DATE CREATED AUTHOR AUTHOR'S ORGANIZ ATION 06/29/2024 [facility] DATE CREATED AUTHOR AUTHOR'S ORGANIZ ATION 10/07/2024 [facility] Reason for Visit (unrecogniz ed section and content) Reason Comments Follow-up F/U on chronic medic al problems Reason Comments Foot Pain left foot pain since yesterday Reason Comments Follow-up Reason Comments Establish Care Hip Pain x 10 months Status Reason Specialty Diagnoses / Procedures Referre d By Contact Referred To Contact Closed Radiology Diagnoses Chronic right hip pain Procedures MR Hip Right Without Contrast Alise Sprague, SENIOR COMPUTER SPECIALIST [address] [place] [id number] Reason Comments Follow-up No recent labs done. Needs refills on all meds. Reason Comments Pain Status Reason Specialty Diagnoses / Procedures Referred By Contact Referred To Contact Closed Specialty Services Required/Patien t's Best Interest Orthopedic Surgery / Sports Medicine Diagnoses Chronic right hip pain Alise Sprague, SENIOR COMPUTER SPECIALIST [address] [place] [address] Jennifer Weber MD [address] [place] [address] Reason Comments Ear Pain Since Thursday. Stabb ing pain in right ear comes and goes. Wakes in the night. Generalized Body Aches Since Thursday. Reason Comments Follow-up Medication Refill Needs refills on Lev othyroxine. Reason Comments Ear Pain b/l ears new pt Status Reason Specialty Diagnoses / Procedures Referred By Contact Referred To Contact Closed Specialty Services Required/Patie nt's Best Interest Otolaryngology (ENT) / Otolaryngology Diagnoses Chronic pain of both ears Darcie Alise Dallas, SENIOR COMPUTER SPECIALIST [address] [place] [address] David Hawthorne MD [address] [facility] [address] [place] [address] Reason Comments Follow-up Bilateral breast red uction scheduled for 02/20/2020. Reason Comments Pre-op Exam Reason Comments Pre-operative Consultation Bilateral kiley ast reduction scheduled for 02/20/2020. Status Reason Specialty Diagnoses / Procedures Referre d By Contact Referred To Contact Diagnoses Macromastia Chronic bilateral back pain, unspecified back location Macromastia [N62] Chronic bilateral back pain, unspecified back location [M54.9, G89.29] Procedures LA REDUCTION OF LARGE BREAST REDUCTION MAMMOPLASTY Sabina Sanchez MD [address] [place] [address] Reason Comments Post Op Visit Bilateral breast red uction. C/o itching. Status Reason Specialty Diagnoses / Procedures Referre d By Contact Referred To Contact Reason Comments Post Op Visit Bilateral breast red uction. C/o itching. Pt states she is taking Benadryl. Pt states that she does not have any gauze over the incisions, just the bra. Reason Comments Post-Op Problem Reason Onset Date Comments Medication Refill 03/13/2020 Reason Comments Follow-up Lima here for a follow up for a b/l breast reduction on Feb 19. She states she was in the office 2 weeks ago due to her R. breast swelling and pain which needed drained. Denies any c/o pain or discomfort since then. Reason Comments New Patient Breast reduction con sult. C/o back and neck pain. Pt states she uses a heating pad and sees a chiropractor for the pain. Pt states she wears a 38C bra. Status Reason Specialty Diagnoses / Procedures Referred By Contact Referred To Contact Closed Plastic Surgery Diagnoses S/P bilateral breast reduction Alise Sprague, HILLARY [address] [place] [address] Sabina Sanchez MD [address] [place] [address] Reason Onset Date Comments Medication Refill 04/27/2020 Reason Comments Post Op Visit Bilateral breast red uction. Denies pain or itching. Pt states that she is back to 90% of her daily activities. Reason Comments Post Op Visit Patient is here for her 3 week post op JUAN breast reduction. Patient is still having drainage and is keeping track of amount at home. Patient denies pain but states she has alot of itching due to a new allergy from the bandaid with blue tape. The tape caused redness, blisters, itching, & rash like symptoms. Reason Comments Fatigue Reason Comments B12 Injection Reason Comments Back Pain lower back pain Hip Pain right side Reason Comments Otalgia Left sided Reason Comments 3-4 week otitis media f/u Reason Comments Discuss Tonsillectomy Reason Comments Post-Op 1 wk, T poss A 11/13 Reason Comments Cough Reason Onset Date Comments Medication Refill 07/01/2021 Reason Comments Hypertension Hypothyroidism Headache Reason Comments Migraine Pt states that she h as had migraines since she was 21. She is currently getting them 1-2 times a month. When she does get them they usually last 2 days. Will sometimes have nausea and vomiting. Has light and sounds sensitivities Specialty Diagnoses / Procedures Referred By Contac t Referred To Contact Neurology Diagnoses Migraine with aura and without status migrainosus, not intractable Aury Mera MD [address] [place] [address] [facility] [address] [facility], [address] [place] [address] Referral ID Status Reason Start Date Expiration Date V isits Requested Visits Authorized [id number] Closed Specialty Services Required/Roxana ent's Best Interest 07/09/2021 07/09/2022 1 1 Reason Onset Date Comments Medication Refill 03/17/2022 Reason Comments Medication Refill Reason Comments possible ear infection, otalgia Reason Comments Migraine Patient states that her migraines are doing good as long as she keeps the amitriptyline in her system. Reason Comments Annual Exam Gap Closure (Health Maintenance) Mammogr am due on 05/07/2022 Reason Comments Hypertension Reason Comments incontinence Specialty Diagnoses / Procedures Referred By Damaris mi Referred To Contact Urology Diagnoses Urinary incontinence, unspecified type Aury Mera MD [address] [place] [address] [facility] [place] [address]50 [place] [address] Referral ID Status Reason Start Date Expiration Date Visits Re quested Visits Authorized [id number] Closed 01/05/2023 01/05/2024 1 1 Reason Comments Fibromyalgia She states it is fla ring up and the Cymbalta made her irritable she said she wanted to choke the fuck out of her on it Reason Comments cystoscopy Reason Onset Date Comments Medication Refill 04/19/2023 Reason Comments Pre-operative Medical Risk Stratificatio n Reason Onset Date Comments Medication Refill 05/06/2023 Reason Comments Annual Exam Reason Comments Back Pain DX Q76.0 SPINA BIFID A OCCULTA / NOTES IN EPIC / INTERNAL REFRRING DR AURY QUINTEROS. Specialty Diagnoses / Procedures Referred By Damaris mi Referred To Contact Neurosurgery Diagnoses Spina bifida occulta Aury Mera MD [address] [place] [address] [facility] [place] [address] Referral ID Status Reason Start Date Expiration Date Visits Re quested Visits Authorized [id number] Closed 07/10/2023 07/09/2024 1 1 Reason Onset Date Comments Medication Refill 11/09/2023 Reason Comments Hypertension Reason Comments New Patient Abdominal Panniculus Specialty Diagnoses / Procedures Referred By Contac t Referred To Contact Plastic Surgery Diagnoses Symptomatic abdominal panniculus Aury Mera MD [address] [place] [address] Karena Reno MD [address] [facility] [address] [place] [address] Referral ID Status Reason Start Date Expiration Date V isits Requested Visits Authorized [id number] Pending Review 12/07/2023 12/31/2024 1 1 Reason Comments URI Bilateral ear pain, congestion and non productive cough for a weekTaking Robitussin with minimal relief Reason Comments Annual Exam Assessment & Plan Note - Alise Sprague CNP - 10/12/2018 11:02 AM EDTAssessment & Plan Note - Alise Sprague CNP - 12/20/2018 8:46 AM EDT Miscellaneous Notes (unrecog nized section and content) Associated Problem(s): Mixed hyperlipidemia I have ordered blood work for you to have completed. Please have this completed at 7 days before your next appointment. This blood work will need to be completed while fasting. This means nothing to eat or drink for 6-8 hours prior to having it drawn. You can however, drink water and take medications as ordered during this time. I will review your labs via [facility] or the office will with your results. documented in this encounter Associated Problem(s): Postartificial menopausal syndrome Continue meds as prescribed, watch diet, and increase activity as able to tolerate. Associated Problem(s): Hypothyroidism Continue meds as prescribed, watch diet, and increase activity as able to tolerate. Associated Problem(s): Hypertension Stable, continue meds, increase activity as can tolerate, limit salt, and watch diet. Continue to monitor blood pressure at home as instructed. Bring blood pressure log and cuff to your next visit. I have ordered blood work for you to have completed. Please have this completed one week before your next appointment in 6 months. This blood work will need to be completed while fasting. This means nothing to eat or drink for 6-8 hours prior to having it drawn. You can however, drink water and take medications as ordered during this time. I will review your labs via [facility] or the office will with your results. documented in this encounter Associated Problem(s): Hypertension Stable, continue meds, increase activity as can tolerate, limit salt, and watch diet. Continue to monitor blood pressure at home as instructed. Bring blood pressure log and cuff to your next visit. Associated Problem(s): Postartificial menopausal syndrome Continue meds as prescribed, watch diet, and increase activity as able to tolerate. documented in this encounter POST OPERATIVE/PROCEDURE NOTE Lima Jordan ([id number]) SURGEON Surgeon(s) and Role: * Sabina Sanchez MD - Primary RAG CUTTING MACHINE OPERATOR [facility] ANESTHESIOLOGIST EMERGENCY OPERATOR: STEPHEN GutierrezEMERGENCY OPERATOR; Petra Melvin APRN-[employer] SURGICAL STAFF Patient Safety Tech: Breonna Lin RN; Tierney Delacruz RN Scrub Person: Natalya Yuan; Ellie Nevarez Associate Professor Of Philosophy Pipefitter: Wendy Woody PROCEDURE PERFORMED Bilateral Breast Reduction (R-279gm, L-254gm) PRIMARY CLOSURE Yes ANESTHESIA (type of) General ESTIMATED BLOOD LOSS 50cc ml DRAINS none BLOOD PRODUCTS none FLUIDS Intake/Output Summary (Last 24 hours) at 02/20/2020 1235 Last data filed at 02/20/2020 1157 Gross per 24 hour Intake 1000 ml Output 400 ml Net 600 ml PRE OPERATIVE DIAGNOSIS Macromastia [N62] Chronic bilateral back pain, unspecified back location [M54.9, G89.29] POST OPERATIVE DIAGNOSIS Macromastia [N62] Chronic bilateral back pain, unspecified back location [M54.9, G89.29] FINDINGS pending CONDITION OF PATIENT stable COMPLICATIONS None GRAFTS AND/OR IMPLANTS See OR Nursing Documentation SPECIMENS Microbiology specimen sent ID Type Source Tests Collected by Time Destination A : Right breast tissue 279 grams Permanent TISSUE SURGICAL PATHOLOGY REQUEST Saibna Sanchez MD 02/20/2020 1149 B : Left breast tissue 254 grams Permanent TISSUE SURGICAL PATHOLOGY REQUEST Sabina Sanchez MD 02/20/2020 1150 Sabina Sanchez MD February 20, 2020 12:35 PM documented in this encounter Patient was informed. Medication Refill Alise Sprague CNP [facility] 2 minutes ago (10:04 AM) Please remind pt that she needs to have her TSH level rechecked. Alise Fletcher comment You routed conversation to Alise Sprague CNP 3 days ago [place] [phone] You documented in this encounter Non-Urgent Medical Question Lima Jordan, Alise Haynes CNP 1 hour ago (12:12 PM) Hello I went and did my blood work this morning I need my levothroxine refilled and amlodipine refilled as well. Thank you have a great weekend documented in this encounter Associated Problem(s): Fatigue There may be multiple causes for your symptoms. Abrupt stopping of Cymbalta, vitamin deficiency, anemia or thyroid dysfunction. I will obtain labs today and follow up with you. In the meantime, I want your to start B12 injections, your B12 was low 200's and you are slightly anemic. I want you to also restart vitamin D, will prescribe the higher dose due to the low level at 18. Continue your synthroid as you are. documented in this encounter Associated Problem(s): Fatigue There may be multiple causes for your symptoms. Abrupt stopping of Cymbalta, vitamin deficiency, anemia or thyroid dysfunction. I will obtain labs today and follow up with you. In the meantime, I want your to start B12 injections, your B12 was low 200's and you are slightly anemic. I want you to also restart vitamin D, will prescribe the higher dose due to the low level at 18. Continue your synthroid as you are. documented in this encounter Sabina Sanchez MD - 02/20/2020 7:23 AM EST H&P Notes (unrecognized sect ion and content) I have examined the patient and reviewed the previous H&P completed on date 01/30/20 and there are no changes. See paper H&P in chart Sabina Sanchez MD, 02/20/2020, 7:24 AM. documented in this encounter Mary Xavier RN - 02/20/2020 1:20 PM Mary Cavazos RN - 02/20/2020 1:10 PM Jannie Serrato RN - 02/20/2020 12:59 PM Tierney Mays RN - 02/20/2020 12:33 PM EST Nursing Notes (unrecognized section and content) Incentive spirometer teaching complete by Roxana ERVIN. Patient demonstrated proper use at this time. Patient provided with snack of crackers and water at this time. 1330 Patient tolerating snack at this time with no nausea or vomiting. 1500 Cesar catheter removed at this time. Patient complaining of pain states is burning pain but tolerable at this time 1550 Patient getting dressed with assistance by RN at this time. Patient ambulated to bathroom independently at this time. Patient able to void with no issue. 1605 Discharge instructions reviewed with patient and at this time. All questions and concerns answered. Patient states understanding. Patient states pain is mild and is tolerable at this time. Patient has pain medication at home. 1610 IV removed per policy. 1620 Patient wheeled down to lobby by [employer] for transport home by at this time. Patient has all belongings at this time. Patient discharged in stable condition. Discharged from PACU to [place] [facility] at this time. Pt is stable vitals WNL. Report given to AZIZA Yen pt reporting pain is increasing Released pain orders at this time. Dr. Sanchez at bedside. Call light with in reach bed in low position. Will continue to monitor. Transferred to PACU via bed with this nurse and Tj Chirinos CRNA. Bedside report given to AZIZA Pearson OR room Temp 61 OR room humidity 52 documented in this encounter Rosalee Garcia RN - 03/15/2020 4:18 PM Rosalee Carlisle RN - 03/15/2020 3:59 PM Rosalee Carlisle RN - 03/15/2020 3:49 PM Rosalee Carlisle RN - 03/15/2020 1:48 PM EST ED Notes (unrecognized secti on and content) Dr. Daniel patino Report given to Dr. Sanchez at this time Interventional Radiology is done at this time. Drainage tubing taped to pt's abdomen and connected to a leg bag Everton Soto PA-C in room with pt at this time Called Dr. Sanchez's office at this time. 49-year-old female who had recent breast reduction. She will DEE Galvan. Please see his note for further details. She has a painful and tight feeling in the right breast. She is not noticed fever. Patient does have erythema and swelling of the right breast. Her lungs are clear and she is speaking to me in full sentences. She moves all extremities well capillary refill is brisk distally. Ultrasound shows a 9.1 x 7.9 x 4.6 cm fluid collection in the right breast. At this time we are contacting Dr. Rosas for further treatment and definitive care. Patient was given IV antibiotics here in emergency department. Please see note from Everton Soto for further details. I did speak to the patient and her . They are aware of the plan and are comfortable with this. Keanu Thompson MD 03/15/[address] Thompson in room with pt at this time Pt c/o swelling R breast post op documented in this encounter Care Teams (unrecognized sec tion and content) Russian Teacher Relationship Specialty Start Date End Date Aury Mera MD [address] [place] [address] [id number] PCP - General Family Medicine 06/18/20 Russian Teacher Relationship Specialty Start Date End Date Aury Mera MD [address] [place] [address] [phone] PCP - General Family Medicine 06/18/20 Russian Teacher Relationship Specialty Start Date End Date Aury Mera MD [address] [place] [address] [id number] PCP - General Family Medicine 06/18/20 Russian Teacher Relationship Specialty Start Date End Date Aury Mera MD [address] [place] [address] [phone] PCP - General Family Medicine 06/18/20 Russian Teacher Relationship Specialty Start Date End Date Aury Mera MD [address] [place] [address] [id number] PCP - General Family Medicine 06/18/20 Russian Teacher Relationship Specialty Start Date End Date Aury Mera MD [address] [place] [address] [phone] PCP - General Family Medicine 06/18/20 Russian Teacher Relationship Specialty Start Date End Date Aury Mera MD [address] [place] [address] [id number] PCP - General Family Medicine 06/18/20 Russian Teacher Relationship Specialty Start Date End Date Aury Mera MD [address] [place] [address] [id number] PCP - General Family Medicine 06/18/20 Russian Teacher Relationship Specialty Start Date End Date Aury Mera MD [address] [place] [address] [id number] PCP - General Family Medicine 06/18/20 Russian Teacher Relationship Specialty Start Date End Date Aury Mera MD [address] [place] [address] [id number] PCP - General Family Medicine 06/18/20 Russian Teacher Relationship Specialty Start Date End Date Aury Mera MD [address] [place] [address] [phone] PCP - General Family Medicine 06/18/20 Russian Teacher Relationship Specialty Start Date End Date Alise Sprague, RN PCP - General Nurse Practitioner 09/10/18 06/17/20 Aury Mera MD [address] [place] [address] [id number] PCP - General Family Medicine 06/18/20 Russian Teacher Relationship Specialty Start Date End Date Alise Sprague, RN PCP - General Nurse Practitioner 09/10/18 06/17/20 Aury Mera MD [address] [place] [address] [id number] PCP - General Family Medicine 06/18/20 Russian Teacher Relationship Specialty Start Date End Date Aury Mera MD [address] [place] [address] [id number] PCP - General Family Medicine 06/18/20 Russian Teacher Relationship Specialty Start Date End Date Aury Mera MD [address] [place] [address] [phone] PCP - General Family Medicine 06/18/20 Russian Teacher Relationship Specialty Start Date End Date Aury Mera MD [address] [place] [address] [id number] PCP - General Family Medicine 06/18/20 Russian Teacher Relationship Specialty Start Date End Date uAry Mera MD [address] [place] [address] [id number] PCP - General Family Medicine 06/18/20 Russian Teacher Relationship Specialty Start Date End Date Aury Mera MD [address] [place] [address] [phone] PCP - General Family Medicine 06/18/20 Russian Teacher Relationship Specialty Start Date End Date Aury Mera MD [address] [place] [address] [id number] PCP - General Family Medicine 06/18/20 Russian Teacher Relationship Specialty Start Date End Date Aury Mera MD [address] [place] [address] [phone] PCP - General Family Medicine 06/18/20 Russian Teacher Relationship Specialty Start Date End Date Aury Mera MD [address] [place] [address] [id number] PCP - General Family Medicine 06/18/20 Russian Teacher Relationship Specialty Start Date End Date Aury Mera MD [address] [place] [address] [id number] PCP - General Family Medicine 06/18/20 Russian Teacher Relationship Specialty Start Date End Date Aury Mera MD [address] [place] [address] [id number] PCP - General Family Medicine 06/18/20 Russian Teacher Relationship Specialty Start Date End Date Aury Mera MD [address] [place] [address] [phone] PCP - General Family Medicine 06/18/20 Russian Teacher Relationship Specialty Start Date End Date Aury Mera MD [address] [place] [address] [phone] PCP - General Family Medicine 06/18/20 Russian Teacher Relationship Specialty Start Date End Date Aury Mera MD [address] [place] [address] [id number] PCP - General Family Medicine 06/18/20 Russian Teacher Relationship Specialty Start Date End Date Aury Mera MD [address] [place] [address] [phone] PCP - General Family Medicine 06/18/20 Russian Teacher Relationship Specialty Start Date End Date Aury Mera MD [address] [place] [address], [place] [id number] PCP - General Family Medicine 12/25/23 Russian Teacher Relationship Specialty Start Date End Date Aury Mera MD [address] [place] [address] [phone] PCP - General Family Medicine 06/18/20 Russian Teacher Relationship Specialty Start Date End Date Aury Mera MD [address] [place] [address], [place] [id number] PCP - General Family Medicine 06/18/20 Russian Teacher Relationship Specialty Start Date End Date Aury Mera MD [address] [place] [address], [place] [address] PCP - General Family Medicine 06/18/20 Russian Teacher Relationship Specialty Start Date End Date Aury Mera MD [address] [place] [address], [place] [address] PCP - General Family Medicine 06/18/20 Russian Teacher Relationship Specialty Start Date End Date Aury Mera MD [address] [place] [address], [place] [address] PCP - General Family Medicine 06/18/20 Russian Teacher Relationship Specialty Start Date End Date Aury Mera MD [address] [place] [address], [place] [id number] PCP - General Family Medicine 06/18/20 Team Status: Inactive Member Role/Relationship Status Dates Dr. Bartolo Harrington MD Attending Provider Active Start: September 29, 2024 End: September 29, 2024 Team Status: Active Member Role/Relationship Status Dates Aury Mera MD Primary Care Provider Active Team Status: Inactive Member Role/Relationship Status Dates Dr. Bartolo Harrington MD Attending Provider Active Start: September 29, 2024 End: September 29, 2024 Team Status: Inactive Member Role/Relationship Status Dates Aury Mera MD Primary Care Provider Active Start: September 30, 2024 End: September 30, 2024 Dr. Bartolo Harrington MD Attending Provider Active Start: September 30, 2024 End: September 30, 2024 Dr. Bartolo Harrington MD Referring Provider Active Start: September 30, 2024 End: September 30, 2024 Goals (unrecognized section and content) Goals may be documented in a n alternate sectionGoals may be documented in an alternate section FOR RECORDS PERTAINING TO PATIENTS WHO ARE OR HAVE BEEN ENROLLED IN A CHEMICAL DEPENDENCY/SUBSTANCEABUSE PROGRAM, SOME INFORMATION MAY BE OMITTED. This clinical summary was aggregated from multiple sources. Caution should be exercised in using it in the provision of clinical care. This summary normalizes information from multiple sources, and as a consequence, information in this document may materially change the coding, format and clinical context of patient data. In addition, data may be omitted in some cases. CLINICAL DECISIONS SHOULD BE BASED ON THE PRIMARY CLINICAL RECORDS. [employer] [facility]. provides no warranty or guarantee of the accuracy or completeness of information in this document.
== END | disposition home or self-care (01) ==
PROVIDERS: PCP Family Medicine; Referring Provider Psychiatry & Neurology Neurology; Visit Provider Psychiatry & Neurology Neurology
DX: R55 Syncope and collapse (principal); Z86.73 Personal history of transient ischemic attack (TIA), and cerebral infarction without residual deficits
CPT/HCPCS: 93880